=== PATIENT | female | born 1960 | race Caucasian/White ===

== ENCOUNTER 2016-08-15 17:02 | Emergency (ER) | payer MEDICARE, MEDICAID ==
[~2016-08-15] VITALS: Ht 175.3 cm; Wt 200.0 kg
[~2016-08-15 17:02] MED LIST: ACET-703 PO; ADVA250A INH; AMIO200T PO; AMLO5TAB2 PO; ASPI325T PO; ATOR10TA15 PO; BENZ1CAP8 PO; CARV25TA PO; CEFD300C PO; COLA100C3 PO; CROM5.2S4 EACH NARE; ENAL20TA PO; FLUT1SPR5 EACH NARE; FURO1TAB60 PO; HUMALOG SQ; IPRASOL INH; LACT10SO PO; LEVEMIR SQ; LEVO-154 PO; MONT10TA2 PO; MORP1TAB24 PO; MUCI600T PO; MUPI2OIN TOPICAL; NOVORP2 SQ; POTA10TA2 PO; PROT40TA PO; ZOFR4TAB3 SL; ZYRT10CA PO; [UNRECOGNIZED DRUG - CODE] TOPICAL
[2016-08-15 17:03] VITALS: BP 195/85; PULSE 93; RESP 16; TEMP 98.6; O2SAT 94
[2016-08-15 18:10] VITALS: BP 148/76; PULSE 80; RESP 18; O2SAT 98
[2016-08-15] MEDS ORDERED: DEXAMETHASONE SOD PHOS 20 MG/5 ML VIAL IV PUSH ONE (18:30)
--- NOTE | 2016-08-15 18:42 | PD ---
HPI Chief Complaint: Respiratory Symptoms Time Seen by Provider: 18:37 Travel History International Travel<30 days: No Contact w/Intl Traveler<30days: No Traveled to known affect area: No History of Present Illness HPI 55-year-old female that presents to the ED for evaluation of congestion, sinus pressure, sore throat as well as shortness of breath and cough. Per patient she also has some kidney pain. Per patient she has a chronic history of COPD. Per patient she is oxygen dependent and uses 4 L at home. Per patient she's been feeling more short of breath. Per patient she's contacted her doctor about this but per patient they have not given her anything other than treat her as if she had allergies which she thinks that doesn't feel like it. Per patient she does have a history of CHF. She states that she is compliant with her medications and she's been taking multiple allergy medications with minimal relief. She denies any sick contacts. Per patient she wakes up a lot with swelling on the eyes with crusty's. Patient states that she has an allergy to Augmentin, codeine. She has a history of hypertension and diabetes. Denies any other medical problems at this time. Per patient she has no urinary issues but states that she does have a history of kidney problems and they're trying to be conservative with using steroids as well as antibiotics and her secondary to the kidney disease. Per patient she was recently diagnosed with kidney infection but states that this feels different and is not as severe as last time. Per patient the pain in her kidneys is 4 out of 10. Per patient she also having some ear pain as well as sinus pain which is more severe and is 6 out of 10. PFSH Past Medical History Hx Anticoagulant Therapy: Yes Arthritis: Yes Asthma: Yes Atrial Fibrillation: Yes Autoimmune Disease: No Blood Disorders: No Anxiety: No Depression: No Heart Rhythm Problems: Yes Cancer: Yes (rt lung removed for suspected was neg) Cardiac Catheterization: Yes Cardiomyopathy: Yes High Cholesterol: No Chemotherapy: No Chest Pain: Yes Congestive Heart Failure: Yes COPD: Yes Cerebrovascular Accident: No Coronary Artery Disease: Yes Diabetes: Yes Patient Takes Glucophage: No Diminished Hearing: Yes Endocrine: Yes Gastrointestinal Disorders: Yes GERD: Yes Glaucoma: No Genitourinary: Yes (cant urinate unless on lasix) Headaches: No Hepatitis: No Hiatal Hernia: No Heparin Induced Thrombocytopen: No Hypertension: Yes Immune Disorder: No Implanted Vascular Access Dvce: Yes Kidney Stones: No Musculoskeletal: Yes Neurologic: Yes Psychiatric: No Reproductive: No Respiratory: Yes (asthma copd) Immunizations Current: Yes Migraines: Yes Myocardial Infarction: No Radiation Therapy: No Renal Failure: Yes (RENAL HYPERTENSION) Seizures: No Sickle Cell Disease: No Sleep Apnea: Yes (does not wear cpap) Thyroid Disease: Yes (hypo) Ulcer: No Tetanus Vaccination: Unknown Influenza Vaccination: Yes PNEUMOCCOCAL Vaccine (Year): 2007 ?: Not : 5 Para: 2 Miscarriage: 3 : 0 Past Surgical History Abdominal Aneurysm Repair: No Abdominal Surgery: No AICD: Yes Appendectomy: Yes Arteriovenous Shunt: No Body Medical Devices: PACER DEFIB Cardiac Surgery: Yes (aicd pacer) Section: Yes (X 1) Cholecystectomy: No Ear Surgery: No Endocrine Surgery: No Eye Surgery: No Genitourinary Surgery: No Gynecologic Surgery: Yes (csection) Hysterectomy: Yes Insulin Pump: No Joint Replacement: No Neurologic Surgery: No Oral Surgery: Yes (2 teeth pulled 2009) Pacemaker: Yes Thoracic Surgery: Yes (3rd lobe rt lung removed) Other Surgery: Yes Social History Alcohol Use: No Tobacco Use: No Substance Use: No Allergies-Medications (Allergen,Severity, Reaction): Coded Allergies: Augmentin (Verified Allergy, Severe, Diarrhea, 08/15/16) Codeine (Verified Allergy, Severe, ITCH, 08/15/16) Sodium Hypochlorite (Unverified Allergy, Severe, SOB, 08/15/16) *MDRO Multi-Drug Resistant Organism (Verified Adverse Reaction, Unknown, ) 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 Betamethasone Dipropionate Aug Topical 0.05% Lotn 1 Applic TOPICAL BID Atorvastatin (Atorvastatin Calcium) 10 Mg Tab 10 Mg PO HS Protonix (Pantoprazole Sodium) 40 Mg Tab 40 Mg PO DAILY Zofran Odt (Ondansetron Odt) 4 Mg Tab 4 Mg SL Q12HR PRN Zyrtec Allergy (Cetirizine HCl) 10 Mg Cap 10 Mg PO DAILY PRN Mupirocin Topical (Mupirocin) 2 % Oint 1 Applic TOPICAL BID PRN Benzonatate 100 Mg Cap 200 Mg PO TID PRN Lactulose Liq (Lactulose) 10 Gm/15 Ml Soln 15 Ml PO DAILY @ 1400 Colace (Docusate Sodium) 100 Mg Cap 300 Mg PO HS Tylenol Extra Strength (Acetaminophen) 500 Mg Tab 500 Mg PO Q4-6H PRN Morphine ER (Morphine Sulfate) 15 Mg Tab 15 Mg PO BID PRN Potassium Chloride ER (Potassium Chloride) 10 Meq Tab 10 Meq PO DAILY Lasix (Furosemide) 40 Mg Tab 40 Mg PO DAILY Enalapril (Enalapril Maleate) 20 Mg Tab 20 Mg PO BID Carvedilol 25 Mg Tab 25 Mg PO BID Amiodarone (Amiodarone HCl) 200 Mg Tab 200 Mg PO DAILY Amlodipine (Amlodipine Besylate) 5 Mg Tab 5 Mg PO DAILY Levothyroxine (Levothyroxine Sodium) 175 Mcg Tab 175 Mcg PO DAILY Novolin R Inj (Insulin Human Regular) 1,000 Unit/10 Ml Vial 15 Units SQ TIDAC PRN IMPORTANT TO EAT A MEAL WITHIN 30-60 MINUTES OF DOSING Levemir Inj (Insulin Detemir) 1,000 unit/ 10 ML Vial 50 Units SQ BID Do not mix with any other Insulin. Mucinex ER 12 HR (Guaifenesin) 600 Mg Reagan 600 Mg PO BID Singulair (Montelukast Sodium) 10 Mg Tab 10 Mg PO HS Cromolyn Nasal Inh 5.2 Mg/Act Dunellen 1 Dunellen EACH NARE BID 1 spray per nostril Flonase Nasal Dunellen (Fluticasone Nasal Dunellen) 50 Mcg/Act Dunellen 50 Mcg EACH NARE BID Duoneb (Ipratropium-Albuterol Neb) 0.5-2.5 Mg/3 Ml Neb 1 Nebule INH Q4HR NEB Advair Diskus Inh (Fluticasone-Salmeterol Inh) 250-50 Mcg/Blist Aer 1 Puff INH BID Rinse mouth after use. Review of Systems General / Constitutional: Positive: Fever, Chills, No: Weight Gain, Weight Loss, Other Eyes: No: Diploplia, Blurred Vision, Photophobia, Drainage, Redness, Foreign Body Sensation, Pain, Tearing, Blind Spots, Visual changes, Blindness, Other HENT: Positive: Headaches, Sore Throat, Rhinitis, Congestion, Earache, No: Vertigo, Lightheadedness, Rhinorrhea, Nosebleed, Neck Stiffness, Neck Pain, Masses, Gingival Bleeding, Dental Difficulties, Ear Discharge, Other Cardiovascular: Positive: Chest Pain or Discomfort, No: Palpitations, Irregular Rhythm, Tachycardia, Diaphoresis, Syncope, Dyspnea on exertion, Varicosities, Edema, Cyanosis, Varicosities, Phlebitis, Claudication, Other Respiratory: Positive: Cough, Shortness of Breath, No: Wheezing, Sneezing, Orthopnea, Hemoptysis, Stridor, Night Sweats, Pleuritic Pain, Other Gastrointestinal: No: Nausea, Vomiting, Diarrhea, Abdominal Pain, Hematemesis, Hematochezia, Constipation, Changes in Bowel Habits, Indigestion, Dysphagia, Loss of Appetite, Other Genitourinary: Positive: Flank Pain, No: Urgency, Frequency, Dysuria, Nocturia , Hematuria, Decreased Urinary Output, Oliguria, Hesitancy, Dribbling, Incontinence, Pelvic Pain, Dyspareunia, Discharge, Dysmenorrhea, Menorrhagia, Metorrhagia, Vaginal Bleeding, Other Musculoskeletal: No: Myalgias, Arthralgias, Limited ROM, Weakness, Cramping, Edema, Pain, Atrophy, Other Skin: No Rash, No Itching, No Dryness, No Lumps, No Hives, No Change in Pigmentation, No Change in nails, No Alopecia, No Lesions, No Breast Lumps, No Breast Tenderness, No Breast Swelling, No Other Neurologic: No: Weakness, Dizziness, Syncope, Focal Abnormalities, Coordination Problem, Tremor, Ataxia, Headache, Change in Mentation, Slurred Speech, Paresthesia, Incontinence, Seizures, Sensory Disturbance, Other Psychiatric: No: Anxiety, Depression, Suicidal Ideations, Disorder of Thought, Mood Disorder, Substance Abuse, Homicidal Ideation, Other Endocrine: No: Heat Intolerance, Cold Intolerance, Polyuria, Polydipsia, Other Hematologic/Lymphatic: No: Easy Bruising, Lymph Node Enlargement, Other Physical Exam Narrative GENERAL: Well-nourished, well-developed patient in no apparent distress. SKIN: Warm and dry. HEAD: Atraumatic. Normocephalic. EYES: Pupils equal and round reactive to light and accommodation. No scleral icterus. No injection or drainage. ENT: No nasal bleeding or discharge. Mucous membranes pink and moist. TMs are clear with no sign of infection or perforation. No mastoid tenderness. Ear canals are intact bilaterally. No lymphadenopathy. Nostril mucosa is red and moist with clear mucus noted. sinus tenderness noted with palpation noted. Tonsils are not enlarged or swollen. No ulvua Deviation. Tongue is midline. NECK: Trachea midline. No JVD. No meningeal signs noted CARDIOVASCULAR: Regular rate and rhythm. RESPIRATORY: No accessory muscle use. Clear to auscultation. Breath sounds equal bilaterally. GASTROINTESTINAL: Abdomen soft, non-tender, nondistended. Hepatic and splenic margins not palpable. MUSCULOSKELETAL: Extremities without clubbing, cyanosis, or edema. No obvious deformities. NEUROLOGICAL: Awake and alert. No obvious cranial nerve deficits. Motor grossly within normal limits. Five out of 5 muscle strength in the arms and legs. Normal speech. PSYCHIATRIC: Appropriate mood and affect; insight and judgment normal. Data Data Last Documented VS Vital Signs Date Time Temp Pulse Resp B/P Pulse Ox O2 Delivery O2 Flow Rate FiO2 08/15/16 18:10 80 18 148/76 98 Nasal Cannula 4 08/15/16 17:03 98.6 Orders Electrocardiogram (08/15/16 18:25) Complete Blood Count With Diff (08/15/16 18:25) Basic Metabolic Panel (Bmp) (08/15/16 18:25) B-Type Natriuretic Peptide (08/15/16 18:25) Blood Culture (08/15/16 18:25) Urinalysis - C+S If Indicated (08/15/16 18:25) Magnesium (Mg) (08/15/16 18:25) Group A Rapid Strep Screen (08/15/16 18:25) Influenzae A/B Antigen (08/15/16 18:25) Chest, Single Ap (08/15/16 18:25) Iv Access Insert/Monitor (08/15/16 18:25) Ecg Monitoring (08/15/16 18:25) Oximetry (08/15/16 18:25) Dexamethasone Inj (Decadron Inj) (08/15/16 18:30) Labs Laboratory Tests Test 08/15/16 18:40 White Blood Count 11.2 TH/MM3 Red Blood Count 4.47 MIL/MM3 Hemoglobin 12.4 GM/DL Hematocrit 38.9 % Mean Corpuscular Volume 87.0 FL Mean Corpuscular Hemoglobin 27.8 PG Mean Corpuscular Hemoglobin 31.9 % Concent Red Cell Distribution Width 14.6 % Platelet Count 188 TH/MM3 Mean Platelet Volume 9.4 FL Neutrophils (%) (Auto) 73.0 % Lymphocytes (%) (Auto) 13.0 % Monocytes (%) (Auto) 9.6 % Eosinophils (%) (Auto) 3.8 % Basophils (%) (Auto) 0.6 % Neutrophils # (Auto) 8.2 TH/MM3 Lymphocytes # (Auto) 1.5 TH/MM3 Monocytes # (Auto) 1.1 TH/MM3 Eosinophils # (Auto) 0.4 TH/MM3 Basophils # (Auto) 0.1 TH/MM3 CBC Comment DIFF FINAL Differential Comment Sodium Level 138 MEQ/L Potassium Level 3.8 MEQ/L Chloride Level 99 MEQ/L Carbon Dioxide Level 32.6 MEQ/L Anion Gap 6 MEQ/L Blood Urea Nitrogen 13 MG/DL Creatinine 0.87 MG/DL Estimat Glomerular Filtration 68 ML/MIN Rate Random Glucose 257 MG/DL Calcium Level 8.8 MG/DL Magnesium Level 1.8 MG/DL B-Type Natriuretic Peptide 42 PG/ML MDM Medical Decision Making Medical Screen Exam Complete: Yes Emergency Medical Condition: Yes Medical Record Reviewed: Yes Interpretation(s) CBC & BMP Diagram 08/15/16 18:40 strep positive flu negative Last Impressions Chest X-Ray 08/15/16 6825 Signed Impressions: Service Date/Time: Monday, August 15, 2016 18:25 - CONCLUSION: 1. Mild pulmonary vascular congestion bilaterally. 2. Stable cardiomegaly. Eloy Altman MD BNP [facility] Differential Diagnosis Sinusitis versus congestion versus pharyngitis versus influenza versus pneumonia versus CHF versus COPD versus chronic kidney disease versus kidney infection versus flank pain Narrative Course 55-year-old female that presents to the ED for evaluation of cold-like symptoms and flank pain. Patient was properly examined and was found to have signs and symptoms concerning with possible cold-like symptoms. At this time I recommend labs and imaging. Patient is agreeable with this plan. Patient requested something for her sinuses. I told patient that the only really thing we can give her for her sinuses right now is steroids. She will likely have some of this. Patient was given dose of dexamethasone. Labs and imaging were essentially unremarkable. Chest x-ray did show some minimal fluid but no sign of acute CHF. BNP was within normal limits. Strep test was positive. Patient was reassured. At this time I believe this is a strep pharyngitis. Patient tells me that she is not really allergic to augmentin but this gives her diarrhea. She states that she's been able to take penicillin with no issues. This time I will give patient a prescription for amoxicillin and prednisone. Patient was given first dose of amoxicillin here in the ED. Told to follow with PCP. See ED worsening symptoms. Diagnosis Primary Impression: Strep pharyngitis Additional Impression: Sinusitis Qualified Code: J01.00 - Subacute maxillary sinusitis Patient Instructions: General Instructions Additional Instructions: Motrin and Tylenol for pain and fever. You can use [id number] antihistamine as well as well as Mucinex as needed for runny nose and congestion. Cough drops for cough as needed. Drink plenty of fluids. Follow-up with PCP. See ED for worsening symptoms. Med/Other Pt SpecificInfo: Prescription(s) given Scripts Prednisone 20 Mg Tab20 Mg PO BID #10 TAB Prov:Erick Yost MD 08/15/16 Amoxicillin 875 Mg [id number] Mg PO BID 10 Days Prov:Erick Yost MD 08/15/16 Disposition: 01 DISCHARGE HOME Condition: Stable Surendra Miller Aug 15, 2016 18:42
[2016-08-15 19:04] LABS: AUTOMATED NEUTROPHIL # 8.2 TH/MM3 (1.8-7.7); BASOPHIL # 0.1 TH/MM3 (0-0.2); BASOPHIL % 0.6 % (0.0-2.0); EOSINOPHIL # 0.4 TH/MM3 (0-0.4); EOSINOPHIL % 3.8 % (0.0-4.0); HEMATOCRIT 38.9 % (35.0-46.0); HEMO FLAGS DIFF FINAL; LYMPHOCYTE # 1.5 TH/MM3 (1.0-4.8); MEAN CORPUSCULAR HEMOGLOBIN 27.8 PG (27.0-34.0); MEAN CORPUSCULAR HGB CONC 31.9 % (32.0-36.0); MONO % 9.6 % (0.0-8.0); PLATELET COUNT 188 TH/MM3 (150-450); RED BLOOD COUNT 4.47 MIL/MM3 (4.00-5.30); RED CELL DISTRIBUTION WIDTH 14.6 % (11.6-17.2); WHITE BLOOD COUNT 11.2 TH/MM3 (4.0-11.0)
[2016-08-15] MEDS ORDERED: HUMALOG SQ (19:19)
[2016-08-15] MEDS ORDERED: APIX5TAB PO (19:27)
[2016-08-15] MEDS ORDERED: PROT0.1O TOPICAL (19:30)
[2016-08-15] MEDS ORDERED: CORTI10A EACH EAR (19:35)
--- NOTE | 2016-08-15 19:36 | RADRPT ---
EXAM DATE/TIME: 08/15/2016 18:25 [facility] COMPARISON: CHEST SINGLE AP, March 31, 2016, 8:44. INDICATIONS : Shortness of breath, cough, and chest pain. MEDICAL HISTORY : Chronic obstructive pulmonary disease. Asthma SURGICAL HISTORY : Lobectomy. Pacemaker. ENCOUNTER: Initial ACUITY: 1 week PAIN SCORE: 5/10 LOCATION: Bilateral chest FINDINGS: The heart is mildly prominent but stable. Mild pulmonary vascular congestion is noted bilaterally. The left subclavian pacemaker is stable. CONCLUSION: 1. Mild pulmonary vascular congestion bilaterally. 2. Stable cardiomegaly. Eloy Altman MD on August 15, 2016 at 19:24 Board Certified Radiologist. This report was verified electronically.
[2016-08-15 19:40] LABS: BICARBONATE 32.6 MEQ/L (21.0-32.0); MAGNESIUM 1.8 MG/DL (1.5-2.5); POTASSIUM 3.8 MEQ/L (3.5-5.1)
[2016-08-15] MEDS ORDERED: PRED20 PO (20:02)
[2016-08-15] MEDS ORDERED: AMOX875T PO (20:02)
[2016-08-15] MEDS ORDERED: AMOXICILLIN 875 MG TAB PO ONE (20:15)
--- NOTE | 2016-08-15 22:24 | EKG ---
Date Performed: 08/15/2016 Time Performed: 18:24:29 PTAGE: 55 years EKG: ELECTRONIC ATRIAL PACEMAKER ELECTRONIC VENTRICULAR PACEMAKER ABNORMAL RHYTHM ECG PREVIOUS TRACING : 06/29/2015 03.37 Compared to prior tracing no significant change DOCTOR: Blas Baeza Interpretating Date/Time 08/15/2016 22:21:23
== END 2016-08-15 20:56 | disposition home or self-care (01) ==
LOC: NEPE 17:02
DX: J02.0 Streptococcal pharyngitis (principal); J01.00 Acute maxillary sinusitis, unspecified; B95.0 Streptococcus, group A, as the cause of diseases classified elsewhere; I50.9 Heart failure, unspecified; R94.31 Abnormal electrocardiogram [ECG] [EKG]; I10 Essential (primary) hypertension; J45.909 Unspecified asthma, uncomplicated; I48.91 Unspecified atrial fibrillation; Z79.01 Long term (current) use of anticoagulants
CPT/HCPCS: 71010; 80048; 83735; 83880; 85025; 87040; 87804; 87880; 93005; 96374; 99284; J1100

== ENCOUNTER 2016-12-11 20:41 | Observation (INO) | payer MEDICARE, MEDICAID ==
[~2016-12-11 20:41] MED LIST changes: +AMOX875T PO; +APIX5TAB PO; -ASPI325T PO; -CEFD300C PO; +CORTI10A EACH EAR; +PRED20 PO; +PROT0.1O TOPICAL
[2016-12-11 20:44] VITALS: BP 134/81; PULSE 66; RESP 18; TEMP 99.2; O2SAT 95
--- NOTE | 2016-12-11 21:25 | PD ---
HPI Chief Complaint: Respiratory Symptoms Time Seen by Provider: 21:23 Travel History International Travel<30 days: No Contact w/Intl Traveler<30days: No Traveled to known affect area: No History of Present Illness HPI The patient is a 56 year old female who presents to the [facility] emergency department with a history of reportedly not feeling well over the last few days. The patient reports that initially she began to have congestion and sinus drainage, however over the last 3-4 days the congestion has moved into her chest. She reports that she's been coughing up a green sputum. She reports that she has also noted over the last 2 days having increased pain along her abdomen and weeping from the skin of her abdomen related to lymphedema. She reports that she's had cellulitis with sepsis associated with her abdominal lymphedema 2 times in the past. She is concerned that she may be developing a recurrence. She reports that she's had chills without fever. She reports that today she began to have left-sided chest pain that radiates into the left lateral chest. She reports having increased shortness of breath with exertion. She reports that she normally has a baseline level of shortness of breath related to asthma and part of the lung being resected for a benign tumor. She reports that she is on 4 L nasal cannula O2 chronically at home. She reports having nausea without vomiting or diarrhea. She reports that she suffers with chronic constipation. Her last bowel movement was 2 days ago. She denies having any blood in her stool or black or tarry stools. She is chronically incontinent of urine. Otherwise on review of systems, the patient denies any other urinary symptoms or neurologic symptoms. The patient's primary care physician is Dr. Hernandez. The patient's service observer chief is Dr. Cummins. The patient's manager sterile processing is Dr. Mccullough. The patient reports having a history of congestive heart failure with an ejection fraction in 2010 at 12%, however this increase last year up to 45%. She is status post AICD and pacemaker placement. She is chronically anticoagulated with Eliquis. [facility] Past Medical History Narrative Medical The patient's past medical history is significant for congestive heart failure, asthma chronically O2 dependent on 4 L nasal cannula O2, lymphedema, obesity, urinary incontinence, allergies, history of ventricular tachycardia, history of chronic renal insufficiency, history of heart or lung being resected related to a benign tumor, history of diabetes mellitus, psoriasis, hypertension. Hx Anticoagulant Therapy: Yes Arthritis: Yes Asthma: Yes Atrial Fibrillation: Yes Autoimmune Disease: No Blood Disorders: No Anxiety: No Depression: No Heart Rhythm Problems: Yes Cancer: Yes (rt lung removed for suspected was neg) Cardiac Catheterization: Yes Cardiomyopathy: Yes High Cholesterol: No Chemotherapy: No Chest Pain: Yes Congestive Heart Failure: Yes COPD: Yes Cerebrovascular Accident: No Coronary Artery Disease: Yes Diabetes: Yes Diminished Hearing: Yes Endocrine: Yes Gastrointestinal Disorders: Yes GERD: Yes Glaucoma: No Genitourinary: Yes (cant urinate unless on lasix) Headaches: No Hepatitis: No Hiatal Hernia: No Heparin Induced Thrombocytopen: No Hypertension: Yes Immune Disorder: No Implanted Vascular Access Dvce: Yes Kidney Stones: No Musculoskeletal: Yes Neurologic: Yes Psychiatric: No Reproductive: No Respiratory: Yes (asthma copd) Immunizations Current: Yes Migraines: Yes Myocardial Infarction: No Radiation Therapy: No Renal Failure: Yes (RENAL HYPERTENSION) Seizures: No Sickle Cell Disease: No Sleep Apnea: Yes (does not wear cpap) Thyroid Disease: Yes (hypo) Ulcer: No PNEUMOCCOCAL Vaccine (Year): 2007 ?: Not : 5 Para: 2 Miscarriage: 3 : 0 Past Surgical History Narrative Surgical The patient's past surgical history is significant for a , right upper lung being resected for a benign tumor, AICD and pacemaker placement, hysterectomy, tonsillectomy. Abdominal Aneurysm Repair: No Abdominal Surgery: No AICD: Yes Appendectomy: Yes Arteriovenous Shunt: No Body Medical Devices: PACER DEFIB Cardiac Surgery: Yes (aicd pacer) Section: Yes (X 1) Cholecystectomy: No Ear Surgery: No Endocrine Surgery: No Eye Surgery: No Genitourinary Surgery: No Gynecologic Surgery: Yes (csection) Hysterectomy: Yes Insulin Pump: No Joint Replacement: No Neurologic Surgery: No Oral Surgery: Yes (2 teeth pulled 2009) Pacemaker: Yes Thoracic Surgery: Yes (3rd lobe rt lung removed) Other Surgery: Yes Social History Alcohol Use: No Tobacco Use: No Substance Use: No Allergies-Medications (Allergen,Severity, Reaction): Coded Allergies: Augmentin (Verified Allergy, Severe, Diarrhea, 08/15/16) Codeine (Verified Allergy, Severe, ITCH, 08/15/16) Sodium Hypochlorite (Unverified Allergy, Severe, SOB, 08/15/16) *MDRO Multi-Drug Resistant Organism (Verified Adverse Reaction, Unknown, ) 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 06/29/15, cleared per Infection Control* Reported Meds & Prescriptions Reported Meds & Active Scripts Active Reported Jikbooqu-Haicufizh-OW Otic Drops (Neomycin/Polymyxin/Hydrocortisone) 1 % Soln 1 Drop EACH EAR DAILY PRN Protopic Topical 1% (Tacrolimus Topical 1%) 0.1 % Oint 1 Applic TOPICAL BID Eliquis (Apixaban) 5 Mg Tab 5 Mg PO BID Humalog Inj (Insulin Human Lispro) 1,000 Unit/10 Ml Vial Unknown Dose SQ ACHS Max dose at bedtime:( )units; sugars < 70,(0)units; sugars 150-199,(5)units; sugars 200-249,(10)units; sugars 250-299,(15)units; sugars 300-349,(20)units; sugars more than 349,(25)units. Betamethasone Dipropionate Aug Topical 0.05% Lotn 1 Applic TOPICAL BID Atorvastatin (Atorvastatin Calcium) 10 Mg Tab 10 Mg PO HS Protonix (Pantoprazole Sodium) 40 Mg Tab 40 Mg PO DAILY Zofran Odt (Ondansetron Odt) 4 Mg Tab 4 Mg SL Q12HR PRN Mupirocin Topical (Mupirocin) 2 % Oint 1 Applic TOPICAL BID PRN Benzonatate 100 Mg Cap 200 Mg PO TID PRN Lactulose Liq (Lactulose) 10 Gm/15 Ml Soln 15 Ml PO DAILY @ 1400 Morphine ER (Morphine Sulfate) 15 Mg Tab 15 Mg PO BID PRN Potassium Chloride ER (Potassium Chloride) 10 Meq Tab 10 Meq PO DAILY Lasix (Furosemide) 40 Mg Tab 40 Mg PO DAILY Enalapril (Enalapril Maleate) 20 Mg Tab 20 Mg PO BID Carvedilol 25 Mg Tab 25 Mg PO BID Amiodarone (Amiodarone HCl) 200 Mg Tab 200 Mg PO DAILY Amlodipine (Amlodipine Besylate) 5 Mg Tab 5 Mg PO DAILY Levothyroxine (Levothyroxine Sodium) 175 Mcg Tab 175 Mcg PO DAILY Novolin R Inj (Insulin Human Regular) 1,000 Unit/10 Ml Vial 15 Units SQ TIDAC PRN IMPORTANT TO EAT A MEAL WITHIN 30-60 MINUTES OF DOSING Levemir Inj (Insulin Detemir) 1,000 unit/ 10 ML Vial 50 Units SQ BID Do not mix with any other Insulin. Singulair (Montelukast Sodium) 10 Mg Tab 10 Mg PO HS Cromolyn Nasal Inh 5.2 Mg/Act [place] 1 [place] EACH NARE BID 1 spray per nostril Flonase Nasal [place] (Fluticasone Nasal [place]) 50 Mcg/Act [place] 50 Mcg EACH NARE BID Duoneb (Ipratropium-Albuterol Neb) 0.5-2.5 Mg/3 Ml Neb 1 Nebule INH Q4HR NEB Advair Diskus Inh (Fluticasone-Salmeterol Inh) 250-50 Mcg/Blist Aer 1 Puff INH BID Rinse mouth after use. Review of Systems Except as stated in HPI: all other systems reviewed are Neg General / Constitutional: Positive: Chills, No: Fever Eyes: No: Visual changes HENT: Positive: Rhinorrhea, No: Headaches Cardiovascular: Positive: Chest Pain or Discomfort, Dyspnea on exertion Respiratory: Positive: Cough, Shortness of Breath Gastrointestinal: Positive: Nausea, Abdominal Pain, Constipation, No: Vomiting , Diarrhea, Hematemesis, Hematochezia, Changes in Bowel Habits, Indigestion, Loss of Appetite Genitourinary: Positive: Incontinence, No: Dysuria Musculoskeletal: No: Pain Skin: No Rash Neurologic: No: Weakness, Focal Abnormalities, Change in Mentation, Slurred Speech, Sensory Disturbance Psychiatric: No: Depression Endocrine: No: Polydipsia Hematologic/Lymphatic: No: Easy Bruising Physical Exam Narrative General: The patient is a well-developed morbidly obese female, short of breath on my arrival to the room related to dyspnea on exertion from going from her electric wheelchair to the bed. She has a strong odor of urine noted. Head and Neck exam: Head is normocephalic atraumatic. Eyes: EOMI, pupils are equal round and reactive to light. Nose: Midline septum with pink mucous membranes Mouth: Dentition unremarkable. Moist mucus membranes. Posterior oropharynx is not erythematous. No tonsillar hypertrophy. Uvula midline. Airway patent. Neck: No palpable lymphadenopathy. No nuchal rigidity. No thyromegaly. Cardiovascular: Regular rate and rhythm without murmurs, gallops, or rubs. No pulse deficit to the extremities and simultaneous auscultation and palpation of her radial artery. Lungs: Decreased breath sounds in bilateral bases worse on the right compared to the left. No wheezes, rhonchi, or crackles are audible. Abdomen: Soft, she has abdominal wall induration with a yellow drainage noted. She reports that that is not unusual for her to have this drainage from her lymphedema associated with her abdominal wall. There is no erythema of the abdominal wall noted. No point tenderness on palpation of all 4 quadrants of the abdomen No guarding, rebound, or rigidity. No tenderness on palpation of McBurney's point. Negative [place] sign. Extremities: No clubbing or cyanosis. The patient has 1+ edema bilateral lower extremities.. 2+ pulses in all 4 extremities. No calf tenderness on palpation. Back: No spinous process tenderness to palpation. No costovertebral angle tenderness to palpation. Neurologic Exam: Grossly nonfocal. Skin Exam: No rash noted. Intact skin that is warm and dry. Data Data Last Documented VS Vital Signs Date Time Temp Pulse Resp B/P Pulse Ox O2 Delivery O2 Flow Rate FiO2 12/11/16 20:44 99.2 66 18 134/81 95 Nasal Cannula 4 Orders Electrocardiogram (12/11/16 21:53) Complete Blood Count With Diff (12/11/16 21:53) Comprehensive Metabolic Panel (12/11/16 21:53) Creatine Kinase (Cpk) (12/11/16 21:53) Ckmb (Isoenzyme) Profile (12/11/16 21:53) Troponin I (12/11/16 21:53) B-Type Natriuretic Peptide (12/11/16 21:53) Prothrombin Time / Inr (Pt) (12/11/16 21:53) Act Partial Throm Time (Ptt) (12/11/16 21:53) Blood Culture (12/11/16 21:53) C-Reactive Protein (Crp) (12/11/16 21:53) Lipase (12/11/16 21:53) Urinalysis - C+S If Indicated (12/11/16 21:53) Magnesium (Mg) (12/11/16 21:53) Chest, Single Ap (12/11/16 21:53) Iv Access Insert/Monitor (12/11/16 21:53) Ecg Monitoring (12/11/16 21:53) Oximetry (12/11/16 21:53) Lactic Acid Sepsis Protocol (12/11/16 21:53) Ondansetron Inj (Zofran Inj) (12/11/16 22:45) CKMB (12/11/16 22:00) CKMB% (12/11/16 22:00) Aspirin Chew (Aspirin Chew) (12/12/16 00:00) Nitroglycerin 2% Oint (Nitroglycerin 2% (12/12/16 00:00) Levofloxacin 500 Mg Premix Inj (Levaquin (12/12/16 00:00) Admit Order (Ed Use Only) (12/12/16 00:14) Labs Laboratory Tests Test 12/11/16 12/11/16 22:00 23:18 Prothrombin Time 10.7 SEC Prothromb Time International 1.0 RATIO Ratio Activated Partial 29.4 SEC Thromboplast Time Sodium Level 136 MEQ/L Potassium Level 3.6 MEQ/L Chloride Level 95 MEQ/L Carbon Dioxide Level 35.4 MEQ/L Anion Gap 6 MEQ/L Blood Urea Nitrogen 15 MG/DL Creatinine 1.06 MG/DL Estimat Glomerular Filtration 54 ML/MIN Rate Random Glucose 264 MG/DL Lactic Acid Level 1.9 mmol/L Calcium Level 8.3 MG/DL Magnesium Level 1.7 MG/DL Total Bilirubin 0.4 MG/DL Aspartate Amino Transf 30 U/L (AST/SGOT) Alanine Aminotransferase 26 U/L (ALT/SGPT) Alkaline Phosphatase 125 U/L Total Creatine Kinase 352 U/L Creatine Kinase MB 6.0 NG/ML Creatine Kinase MB % 1.7 % Troponin I LESS THAN 0.02 NG/ML C-Reactive Protein 1.90 MG/DL B-Type Natriuretic Peptide 43 PG/ML Total Protein 7.9 GM/DL Albumin 3.6 GM/DL Lipase 141 U/L White Blood Count 7.8 TH/MM3 Red Blood Count 4.25 MIL/MM3 Hemoglobin 12.7 GM/DL Hematocrit 37.6 % Mean Corpuscular Volume 88.5 FL Mean Corpuscular Hemoglobin 29.9 PG Mean Corpuscular Hemoglobin 33.8 % Concent Red Cell Distribution Width 14.6 % Platelet Count 180 TH/MM3 Mean Platelet Volume 9.8 FL Neutrophils (%) (Auto) 66.1 % Lymphocytes (%) (Auto) 21.1 % Monocytes (%) (Auto) 8.2 % Eosinophils (%) (Auto) 3.6 % Basophils (%) (Auto) 1.0 % Neutrophils # (Auto) 5.1 TH/MM3 Lymphocytes # (Auto) 1.6 TH/MM3 Monocytes # (Auto) 0.6 TH/MM3 Eosinophils # (Auto) 0.3 TH/MM3 Basophils # (Auto) 0.1 TH/MM3 CBC Comment DIFF FINAL Differential Comment MDM Medical Decision Making Medical Screen Exam Complete: Yes Emergency Medical Condition: Yes Medical Record Reviewed: Yes Interpretation(s) Last Impressions Chest X-Ray 12/11/16 [id number] Signed Impressions: Service Date/Time: Sunday, December 11, 2016 21:50 - CONCLUSION: Diminished lung volumes and bibasilar patchy densities likely atelectasis. Gopi Sagastume MD Differential Diagnosis Pneumonia, versus early cellulitis, versus urinary tract infection, versus congestive heart failure exacerbation, versus COPD exacerbation, versus acute coronary syndrome. Narrative Course During the course of the patients emergency department visit, the patients history, examination, and differential diagnosis were reviewed with the patient. The patient had IV access obtained and blood work sent for analysis. The patient was placed on a library monitor with oximetry and blood pressure monitoring. An ECG was done on arrival. The patient's ECG reveals an electronic ventricular paced rhythm, heart rate of 61 with a QRS duration of 188 ms, QTC 536 ms. No acute abnormality is noted. The patient was initially provided Zofran 4 mg IV for nausea. The patient was given aspirin 162 mg by mouth 1, nitroglycerin 1 inch the chest wall. The patient was given Levaquin 500 mg IV. The patients laboratory studies were reviewed and remarkable for a white count of 7.8, hemoglobin 12.7, platelets 180 with 8.2 monocytes, CMP is remarkable for chloride of 95, CO2 35.4, creatinine 1.06, glucose 264, calcium 8.3, lactic acid 1.9, alkaline phosphatase 125, CPK 352 with 1.7 and MB percent, troponin I less than 0.02, C-reactive protein 1.90, BNP 43, lipase 141. PT 10.7, PTT 29.4 Radiology studies were reviewed and remarkable for a chest x-ray that showed diminished lung volumes and bibasilar patchy densities likely atelectasis. Given the patient's chest pain, the patient will be admitted for rule out serial cardiac enzyme protocol. The patients results were discussed with the patient, including the plan of care. I explained that further testing and/ or monitoring is indicated based on the patients history, examination, and/ or laboratory findings. Therefore, I recommended admission for additional evaluation. The patient expressed understanding and was agreeable with this plan. The patient was admitted to the hospital in stable condition and sent to a bed under the care of the [facility]. Physician Communication Physician Communication The patient's case was discussed with Chuckie Dietrich who did agree to admit the patient to the [facility]. Diagnosis Primary Impression: Chest pain, rule out acute myocardial infarction Additional Impression: Abdominal pain Qualified Code: R10.9 - Abdominal pain, unspecified location Admitting Information Admitting Physician Requests: Shannon Luther MD Dec 11, 2016 21:25
--- NOTE | 2016-12-11 22:15 | RADRPT ---
EXAM DATE/TIME: 12/11/2016 21:50 [facility] COMPARISON: CHEST SINGLE AP, August 15, 2016, 18:25. INDICATIONS : Chest pain. Short of breath. MEDICAL HISTORY : Chronic obstructive pulmonary disease. Asthma. SURGICAL HISTORY : Lobectomy. Pacemaker. ENCOUNTER: Subsequent ACUITY: 2 days PAIN SCORE: 4/10 LOCATION: Bilateral chest FINDINGS: A single view of the chest demonstrates diminished lung volumes and patchy bibasilar densities. Left- sided pacemaker partially seen with intact leads.. Osseous structures are intact. CONCLUSION: Diminished lung volumes and bibasilar patchy densities likely atelectasis. Gopi Sagastume MD on December 11, 2016 at 22:13 Board Certified Radiologist. This report was verified electronically.
[2016-12-11] MEDS ORDERED: ONDANSETRON HCL 4 MG/2 ML VIAL IV ONE (22:45)
[2016-12-11 23:04] LABS: ANION GAP 6 MEQ/L (5-15); AST (GOT) 30 U/L (15-37); BICARBONATE 35.4 MEQ/L (21.0-32.0); BLOOD UREA NITROGEN 15 MG/DL (7-18); CHLORIDE 95 MEQ/L (98-107); GLOMERULAR FILTRATION RATE 54 ML/MIN (>89); MAGNESIUM 1.7 MG/DL (1.5-2.5); POTASSIUM 3.6 MEQ/L (3.5-5.1); SODIUM (NA) 136 MEQ/L (136-145)
[2016-12-11 23:05] LABS: ALT (GPT) 26 U/L (10-53)
[2016-12-11 23:08] LABS: ALKALINE PHOSPHATASE 125 U/L (45-117); CREATINE KINASE 352 U/L (26-192); TOTAL BILIRUBIN ADULT 0.4 MG/DL (0.2-1.0)
[2016-12-11 23:14] LABS: APTT (PATIENT) 29.4 SEC (24.3-30.1); PROTHROMBIN TIME - PATIENT 10.7 SEC (9.8-11.6)
[2016-12-11 23:37] LABS: AUTOMATED NEUTROPHIL # 5.1 TH/MM3 (1.8-7.7); BASOPHIL # 0.1 TH/MM3 (0-0.2); EOSINOPHIL # 0.3 TH/MM3 (0-0.4); EOSINOPHIL % 3.6 % (0.0-4.0); HEMATOCRIT 37.6 % (35.0-46.0); HEMO FLAGS DIFF FINAL; LYMPH % 21.1 % (9.0-44.0); LYMPHOCYTE # 1.6 TH/MM3 (1.0-4.8); MEAN CELL VOLUME 88.5 FL (80.0-100.0); MEAN CORPUSCULAR HEMOGLOBIN 29.9 PG (27.0-34.0); MEAN CORPUSCULAR HGB CONC 33.8 % (32.0-36.0); MONO % 8.2 % (0.0-8.0); NEUT % 66.1 % (16.0-70.0); PLATELET COUNT 180 TH/MM3 (150-450); RED BLOOD COUNT 4.25 MIL/MM3 (4.00-5.30); RED CELL DISTRIBUTION WIDTH 14.6 % (11.6-17.2); WHITE BLOOD COUNT 7.8 TH/MM3 (4.0-11.0)
[2016-12-12] VITALS (10 sets, daily range): BP systolic 130–174; BP diastolic 61–85; PULSE 60–69; RESP 16–20; TEMP 98–98.9; O2SAT 95–98
[2016-12-12] MEDS ORDERED: NITROGLYCERIN 2% OINT 1 GM PACKET TOPICAL ONE
[2016-12-12] MEDS ORDERED: ASPIRIN 81 MG CHEW TAB CHEW ONE
[2016-12-12] MEDS ORDERED: LEVOFLOXACIN 500 MG PREMIX INJ 100 ML IV ONE
[2016-12-12] MEDS ORDERED: SODIUM CHLORIDE 0.9% FLUSH 10 ML FLUSH IV FLUSH PRN (00:45)
[2016-12-12] MEDS ORDERED: NALOXONE HCL 0.4 MG/ML AMP IV PRN (00:45)
[2016-12-12] MEDS ORDERED: DEXTROSE 50% IN WATER 50 ML VIAL(D50) IV PRN ×2 (00:45→12:30)
[2016-12-12] MEDS ORDERED: GLUCAGON 1 MG/ML VIAL OTHER PRN ×2 (00:45→12:30)
[2016-12-12] MEDS ORDERED: SENNOSIDES 8.6 MG TAB PO PRN (00:45)
[2016-12-12] MEDS ORDERED: ACETAMINOPHEN 325 MG TAB PO PRN ×2 (00:45)
[2016-12-12] MEDS ORDERED: LACTULOSE SYRUP 20 GM/30 ML CUP PO PRN (00:45)
[2016-12-12 02:03] LABS: CKMB 5.2 NG/ML (0.5-3.6)
[2016-12-12] MEDS: HEPARIN SODIUM - SQ 10,000 UNITS/ML VIAL SQ SCH ×2 (02:31→13:47)
[2016-12-12] MEDS: NITROGLYCERIN 2% OINT 1 GM PACKET TOPICAL SCH ×3 (06:36→18:00)
[2016-12-12] MEDS: INSULIN ASPART SUPPLEMENTAL SCALE SQ SCH ×3 (07:36→18:27)
[2016-12-12 08:09] LABS: CREATINE KINASE 280 U/L (26-192)
[2016-12-12] MEDS: ASPIRIN EC 81 MG TABEC PO SCH (09:49)
[2016-12-12] MEDS: SODIUM CHLORIDE 0.9% FLUSH 10 ML FLUSH IV FLUSH SCH ×2 (09:49→21:00)
[2016-12-12] MEDS ORDERED: BENZONATATE 100 MG CAP PO PRN (12:30)
[2016-12-12] MEDS ORDERED: MORPHINE SULFATE 15 MG CONTROLLED RELEASE TAB PO PRN (12:30)
--- NOTE | 2016-12-12 13:43 | MH ---
cc: ONEIL PILLAI MD, JESSY M.D. DATE OF ADMISSION: 12/12/2016 PRESENTING COMPLAINT Left chest pain. HISTORY OF PRESENT ILLNESS The patient is a 56-year-old obese female with a past medical history significant for multiple medical problems including morbid obesity, cardiomyopathy status post AICD placement, congestive heart failure psoriasis, chronic lymphedema, diabetes, hypertension, COPD, CKD and cellulitis. The patient presented to the emergency room with complaints of generally not feeling well over the last few days. She reports initially she had congestion and sinus drainage, however, feels like it moved to her chest. She has been coughing up green sputum. No fevers or chills have been noticed. The patient over the last 2 days she noticed increased weeping from the skin of her abdomen related to lymphedema. The patient feels it could be cellulitis, however, she denies any fevers or chills. The patient also complains of left-sided chest pain that radiates into the left lateral chest with increasing shortness of breath with exertion. The patient is chronically on 4 liters of oxygen via nasal cannula at home. She reports having nausea without vomiting or diarrhea. She has a history of chronic constipation for which she is on lactulose. Her last bowel movement was two days ago. The patient denies any bleeding in the urine. She is chronically incontinent of urine. She came into the ER for evaluation and was admitted for further work-up. PAST MEDICAL HISTORY As mentioned above is significant for multiple medical issues includin. Congestive heart failure. 2. Asthma. 3. Chronically on four liters of oxygen by nasal cannula. 4. Chronic lymphedema. 5. Morbid obesity. 6. Urinary incontinence. 7. History of CKD. 8. History of part of lung been resected secondary to a benign tumor. 9. Diabetes mellitus. 10. Psoriasis. PAST SURGICAL HISTORY 1. . 2. Right upper lung resected for benign tumor. 3. AICD and pacemaker placement. 4. Hysterectomy. 5. Tonsillectomy. ALLERGIES 1. AUGMENTIN. 2. CODEINE. 3. SODIUM HYPOCHLORITE. MEDICATIONS Medications at home include: 1. Zofran 4 mg tablet p.o. q.12h. p.r.n. 2. Lactulose 15 mL p.o. daily. 3. Enalapril 20 mg p.o. b.i.d. 4. Betamethasone topical ointment. 5. Amiodarone 200 mg p.o. daily. 6. Neomycin ointment. 7. Mupirocin ointment. 8. Eliquis 5 mg p.o. b.i.d. 9. DuoNeb q.4h. p.r.n. shortness of breath. 10. Benzonatate [place] 200 mg p.o. t.i.d. p.r.n. 11. Coreg 25 mg p.o. b.i.d. p.r.n. 12. Fluticasone nasal spray ____ mcg b.i.d. 13. Advair Diskus 250/50, one puff inhalation b.i.d. 14. Amlodipine 5 mg daily. 15. Atorvastatin 10 mg p.o. q.h.s. 16. Levemir 50 units subcu b.i.d. 17. Regular insulin 15 units t.i.d. p.r.n. 18. Humalog sliding scale. 19. Singulair 10 mg p.o. q.h.s. 20. Lasix 40 mg p.o. daily. 21. Cromolyn nasal inhalation, one spray each nostril b.i.d. 22. Morphine ER 15 mg p.o. b.i.d. p.r.n. pain. 23. Protonix 40 mg p.o. daily. 24. Potassium chloride 10 mEq daily. 25. Topical tacrolimus ointment. 26. Levothyroxine 175 mcg p.o. daily. SOCIAL HISTORY The patient and lives at home with her . Denies alcohol, tobacco or illicit drug abuse. FAMILY HISTORY Family history is reviewed and is noncontributory. REVIEW OF SYSTEMS The review of systems is significant for fatigue, shortness of breath, unable to lie flat, increased wheezing, cough and congestion productive of green sputum. Otherwise negative in all systems that were reviewed. PHYSICAL EXAMINATION VITAL SIGNS: At this point show temperature 99.2, pulse 60, respiratory rate 20, blood pressure 149/81. She is satting 98% on 4 liters. GENERAL: She is an awake, alert, oriented, morbidly obese female sitting in bed, does not appear to be in any acute distress. HEENT: Pupils are equally round and reactive to light and accommodation. Extraocular movements intact. No scleral icterus or conjunctival injection was noted. Oral mucosa is moist. NECK: Supple, nontender. JVD cannot be assessed because of severe obesity. CARDIOVASCULAR: S1, S2, regular. No gallops, murmurs or rubs. PULMONARY: Examination diminished throughout. Decreased air entry. Difficult to auscultate due to body habitus. ABDOMEN: Soft, protuberant, nontender with yellowish scaly excoriation. EXTREMITIES: Bilateral lower extremities have 2+ pitting edema, however, no tenderness is noted. The patient also has excoriated areas on the bilateral lower extremities. SKIN: As mentioned above the pannus is edematous, thick and leathery, warm to touch and erythematous. NEUROLOGIC: Awake, alert and oriented. No focal deficits were seen. Cranial nerves appear grossly intact. PSYCH: Appropriate and cooperative. LABORATORY DATA Pertinent lab investigations show WBC count 7.8, hemoglobin 12.7, hematocrit 37.6, platelets 180. Chemistry shows sodium 136, potassium 3.6, chloride 95, bicarb 35, BUN 15, creatinine 1.06, glucose 264, calcium 8.3, is negative. AST 30, ALT 36, alkaline phosphatase 125. CK 352 on admission. Troponin less than 0.02 x3. C-reactive protein 1.9. BNP 43. Total protein 7.9, albumin 3.6, lipase 141. INR is 1.0. IMAGING STUDIES Imaging studies include a chest x-ray which was done and showed diminished lung volumes and bilateral density like atelectasis. DIAGNOSTIC IMPRESSION 1. Chest pain, rule out acute coronary syndrome. 2. Shortness of breath, possibly acute bronchitis. 3. History of cardiomyopathy. 4. Chronic lymphedema. 5. History of congestive heart failure. 6. Psoriasis. 7. Hypertension. 8. Diabetes. 9. Morbid obesity. 10. Chronic kidney disease. PLAN 1. The patient will be admitted to observation. 2. Troponins are negative x3. 3. EKG negative for any cardiac ischemia. 4. We will consult the patient's frame builder, Dr. Cummins. 5. Continue home medications including beta blockers and Eliquis. 6. BNP is only 43 which rules out for any acute congestive heart failure, however, given her significant lymphedema will give her 40 mg IV of Lasix. 7. I will resume all home medications. 8. Will consult Dr. Hartmann for any pulmonary work-up if needed. 9. The patient insists there is something wrong. Elaborate discussion with patient going over lab results. Labs in the a.m. Will continue to follow. MD TYSON Puente/JIMMY /12:50 PM /1:03 PM
[2016-12-12] MEDS ORDERED: FUROSEMIDE 40 MG/4 ML VIAL IV PUSH ONE (14:00)
--- NOTE | 2016-12-12 14:06 | EKG ---
Date Performed: 12/12/2016 Time Performed: 06:52:45 PTAGE: 56 years EKG: Underlying atrial fibrillation with 100% ventricular pacing Compared to prior tracing no si gnificant change ABNORMAL RHYTHM ECG PREVIOUS TRACING : 08/15/2016 18.24 DOCTOR: Walt Malik Interpretating Date/Time 12/12/2016 14:04:26
--- NOTE | 2016-12-12 14:06 | EKG ---
Date Performed: 12/11/2016 Time Performed: 21:39:34 PTAGE: 56 years EKG: Underlying rhythm appears to be atrial fibrillation with 100% ventricular pacing Compared t o PREVIOUS TRACING atrial fibrillation is new PREVIOUS TRACIN08/15/16 DOCTOR: Walt Malik Interpretating Date/Time 12/12/2016 14:03:57
[2016-12-12] MEDS ORDERED: RESP: ALBUTEROL 2.5 MG/IPRATROPIUM 0.5 MG NEB (SCH) INH (16:00)
[2016-12-12] MEDS: RESP: ALBUTEROL 2.5 MG/IPRATROPIUM 0.5 MG NEB (SCH) NEB ×2 (16:09→21:33)
--- NOTE | 2016-12-12 18:53 | MB ---
cc: REMINGTON LOVE MD DATE OF CONSULTATION: 12/12/16 REASON FOR CONSULTATION Chest pain. HISTORY OF PRESENT ILLNESS Ms. Britt Mace is a 56-year-old female who is well-known to me. She does have a history a nonischemic cardiomyopathy with subsequent ICD placement that has essentially resolved by echocardiogram in May of 2015. The patient does continue to struggle with morbid obesity and lymphedema. The patient does report that she has had weeping from her abdomen. This has been worse recently but is essentially chronic. PAST MEDICAL HISTORY 1. Nonischemic cardiomyopathy with most recent EF of 55% 2. Asthma on 4 liters nasal cannula, 3. Chronic lymphedema. 4. Atrial fibrillation: She has a CHADS score of three and has been on aspirin and Plavix for multiple falls, 5. Hypertension, 6. Hyperlipidemia, 7. Hypothyroidism, 8. Diabetes 9. Right lung mass status post excision 10. Sleep apnea, 11. Psoriasis 12. TIA. MEDICATIONS Per the record. ALLERGIES AUGMENTIN CODEINE SODIUM HYPOCHLORITE FAMILY HISTORY Noncontributory. SOCIAL HISTORY The patient does not smoke. PHYSICAL EXAMINATION VITAL SIGNS: 60, 20, 149/81. GENERAL: She is a morbidly obese female who is in no apparent distress. NECK: Free from JVD. LUNGS: Bilaterally decreased and clear to auscultation. CARDIOVASCULAR: She has a normal S1 and S2. The rhythm is regular. ABDOMEN: Soft. EXTREMITIES: Does have some weeping edema. EXTREMITIES: 1+ edema. LABORATORY DATA Lab values significant for a creatinine of 1.06. Her BNP is 43. IMAGING STUDIES Chest x-ray shows diminished from joint December 11 shows diminished lung volumes and bibasilar patchy densities, likely atelectasis. IMPRESSION 1. Chest pain - the patient essentially denied any chest pain to me. She has a history of a nonischemic cardiomyopathy. Her EKG and enzymes are negative for any acute changes. No further workup is felt indicated in this regard at this time. 2. History of congestive heart failure - the patient does have a history of a nonischemic cardiomyopathy. Her most recent EF was normal. This does not appear to be congestive heart failure, although she may have some lymphedema. Thus, at this point, I do not feel we need to do an echocardiogram. I would simply continue her home diuretics. Caution should be used with IV diuretics as she has had several admissions where we had over diuresed secondary to her lymphedema resulting in significant renal insufficiency. 3. Atrial fibrillation - again I would simply continue her home medications that included the Eliquis 5 mg b.i.d. Bryce Turner/ /4:56 PM /6:41 PM
--- NOTE | 2016-12-12 18:53 | MB ---
cc: SHAHBAZ HARTMANN M.D. DATE OF CONSULTATION: 12/12/2016 REASON FOR CONSULTATION: COPD. HISTORY OF PRESENT ILLNESS The patient is a 56-year-old female who is morbidly obese presents to the emergency room with increasing congestion, pain mainly in the back, which she had intermittently on a long-term basis. The patient denies history of fever or chills. No cough, no expectoration. No hemoptysis. She does have a history of sinusitis last week which seems improved. She has no chest pain, no orthopnea, no PND. PAST MEDICAL HISTORY: 1. Bronchial asthma/COPD. 2. Congestive heart failure. 3. Sleep disorder breathing, declined treatment. 4. Chronic respiratory failure, 4 liters oxygen nasal cannula, 24 hours a day. 5. Chronic lymphedema. 6. Urinary incontinence. 7. Chronic kidney disease. 8. Resection of right benign lung mass in the past. 9. Diabetes mellitus. 10. Psoriasis. PAST SURGICAL HISTORY: 1. AICD. 2. . 3. Resection of benign lung mass, right lung. 4. Previous tonsillectomy and adenoidectomy as a child. ALLERGIES CODEINE. SODIUM HYPOCHLORITE AUGMENTIN MDRO FAMILY HISTORY Noncontributory. SOCIAL HISTORY Does not smoke, does not drink. No TB, no industrial exposure. MEDICATIONS: At home: Kindly review admission list of medications upon presentation. REVIEW OF SYSTEMS 12-point review of systems as per HPI and past history otherwise negative. PHYSICAL EXAMINATION: On exam the patient is alert, sitting in bed in no distress. VITAL SIGNS: Pulse 60, respirations 18, blood pressure 150/80, oxygen saturation 98% on four liters oxygen. HEENT: Unremarkable. Eyes without icterus. NECK: Without adenopathy or thyroid enlargement. CHEST: No dullness to percussion, clear to auscultation. CARDIAC: PMI not appreciated. S1-S2 audible, no murmur, no rub. ABDOMEN: Lax, bowel sounds audible. EXTREMITIES: 3+ edema. LABORATORY DATA: White count 7.8, hemoglobin 12.7, hematocrit 37. Sodium 136, potassium 3.6, BUN 15, creatinine 1.0. Chest x-ray: Atelectatic change at base. IMPRESSION: 1. Chronic respiratory failure on oxygen therapy. 2. COPD and/or bronchial asthma on bronchodilator therapy. 3. Diabetes mellitus. 4. Sleep disorder breathing, declines evaluation. 5. Morbid obesity. PLAN: The patient is in no distress at present. Oxygenation is quite adequate. Chest x-ray without acute abnormality. Would continue her oxygen therapy as well as bronchodilator. Increase her activity gradually. Cardiac evaluation to be concluded during her emergency room visit. She has a follow up appointment with me in the office. I do thank you for asking me to partake in Ms. Mace's care. Shahbaz Hartmann MD WWW/ALICJA /5:01 PM /6:46 PM
[2016-12-12] MEDS ORDERED: BUDESONIDE-FORMOTEROL 160/4.5 MCG INHALER INH SCH (21:00)
[2016-12-12] MEDS ORDERED: CROMOLYN SODIUM 5.2 MG/ACT 13 ML NASAL SPRAY EACH NARE SCH (21:00)
[2016-12-12] MEDS ORDERED: LEVOFLOXACIN 500 MG TAB PO SCH (21:00)
[2016-12-12] MEDS ORDERED: ATORVASTATIN 10 MG TAB PO SCH (21:00)
[2016-12-12] MEDS: APIXABAN 5 MG TABLET PO SCH (21:00)
[2016-12-12] MEDS ORDERED: MONTELUKAST SODIUM 10 MG TAB PO SCH (21:00)
[2016-12-12] MEDS ORDERED: diphenhydrAMINE HCL 25 MG CAP PO PRN (23:30)
[2016-12-12] MEDS: RESP: ALBUTEROL 2.5 MG/IPRATROPIUM 0.5 MG NEB (PRN) NEB (23:44)
[2016-12-13] MEDS: CARVEDILOL 12.5 MG TAB PO SCH ×2 (00:15→09:30)
[2016-12-13] MEDS: ENALAPRIL MALEATE 10 MG TAB PO SCH ×2 (00:16→09:45)
[2016-12-13] MEDS: NITROGLYCERIN 2% OINT 1 GM PACKET TOPICAL SCH ×3 (00:16→12:00)
[2016-12-13] MEDS: INSULIN ASPART SUPPLEMENTAL SCALE SQ SCH ×2 (01:32→07:59)
[2016-12-13] MEDS: INSULIN DETEMIR 100 UNITS/ML VIAL SQ SCH ×2 (01:33→09:48)
[2016-12-13] MEDS: RESP: ALBUTEROL 2.5 MG/IPRATROPIUM 0.5 MG NEB (PRN) NEB (02:53)
[2016-12-13 04:05] VITALS: BP 135/66; PULSE 73; RESP 18; TEMP 98.1; O2SAT 93
[2016-12-13] MEDS ORDERED: LEVOTHYROXINE SODIUM 75 MCG TAB PO SCH (06:00)
[2016-12-13] MEDS ORDERED: LEVOTHYROXINE SODIUM 100 MCG TAB PO SCH (06:00)
[2016-12-13] MEDS: RESP: ALBUTEROL 2.5 MG/IPRATROPIUM 0.5 MG NEB (SCH) NEB ×3 (07:42→16:21)
[2016-12-13 07:45] VITALS: O2SAT 93
[2016-12-13 08:00] VITALS: BP 133/63; PULSE 78; RESP 18; TEMP 96; O2SAT 94
[2016-12-13] MEDS ORDERED: amLODIPine BESYLATE 5 MG TAB PO SCH (09:00)
[2016-12-13] MEDS ORDERED: LACTULOSE SYRUP 20 GM/30 ML CUP PO SCH (09:00)
[2016-12-13] MEDS ORDERED: AMIODARONE 200 MG TAB PO SCH (09:00)
[2016-12-13] MEDS ORDERED: FUROSEMIDE 40 MG TAB PO SCH (09:00)
[2016-12-13] MEDS ORDERED: POTASSIUM CHLORIDE 10 MEQ CONTROLLED RELEASE TAB PO SCH ×2 (09:00)
[2016-12-13] MEDS ORDERED: PANTOPRAZOLE SOD 40 MG DELAYED RELEASE TAB PO SCH (09:00)
[2016-12-13] MEDS: APIXABAN 5 MG TABLET PO SCH (09:30)
[2016-12-13] MEDS: ASPIRIN EC 81 MG TABEC PO SCH (09:36)
[2016-12-13] MEDS: SODIUM CHLORIDE 0.9% FLUSH 10 ML FLUSH IV FLUSH SCH (09:37)
--- NOTE | 2016-12-13 09:43 | HHI.PR ---
Subjective Remarks Awake sitting on side of bed No active shortness of breath noted O2 per nasal cannula at 4 L which is what she wears at home States she has not urinated since late yesterday afternoon (Lolly Reyes) Objective Objective Results - Vital Signs Date Time Temp Pulse Resp B/P Pulse Ox O2 Delivery O2 Flow Rate FiO2 12/13/16 08:00 96.0 78 18 133/63 94 12/13/16 07:45 93 Nasal Cannula 4.00 12/13/16 04:05 98.1 73 18 135/66 93 12/12/16 23:45 98.9 60 18 141/71 95 12/12/16 21:36 96 Nasal Cannula 4.00 12/12/16 19:30 98.1 66 18 130/61 97 12/12/16 16:54 98.0 61 174/85 96 12/12/16 12:11 60 20 149/81 98 Nasal Cannula 4 12/12/16 09:49 63 16 134/63 96 Nasal Cannula 3 I/O 12/12/16 12/12/16 12/12/16 12/13/16 12/13/16 12/13/16 06:59 14:59 22:59 06:59 14:59 22:59 Intake Total 200 ml 200 ml Balance 200 ml 200 ml Intake Oral 200 ml 200 ml (Lolly Reyes) Result Diagram: 12/11/16 2318 12/11/16 2200 ROS General: Other (10 point ROS done positives noted) Pulmonary: Cough (occasional), 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 Facial features appear symmetric. OROPHARYNGEAL: Oropharynx without erythema or edema., Dry NECK: Supple. Trachea midline without deviation. CARDIAC: Regular rhythm, regular rate, S1 and S2 are heard. Distant heart sounds LUNGS: Diminished to auscultation bilaterally. Encouraged to turn cough and deep breathe ABDOMEN: Round obese, nontender, Bowel sounds active No rebound. No guarding. EXTREMITIES: 2-3+ generalized edema. Mild rash lower extremities NEUROLOGICAL: Patient mood and affect appropriate mild anxiety SKIN:Warm and moist (Lolly Reyes) A/P Assessment and Plan 1. Chest pain, rule out acute coronary syndrome. 2. Shortness of breath, possibly acute bronchitis. 3. History of cardiomyopathy. 4. Chronic lymphedema. 5. History of congestive heart failure. 6. Psoriasis. 7. Hypertension. 8. Diabetes. 9. Morbid obesity. 10. Chronic kidney disease. 11. Possible UTI Vital signs reviewed, temp 98.9, BP and other vitals normal trends Labs reviewed Chest pain, no further complaints Appreciate cardiology input and recommendations, will also follow as outpatient when patient is discharged Just of heart failure stable medical management, negative troponins Positive CKs, trending down, denies any muscular pain but notes neuropathy in her abdomen and her lower legs Denies any abdominal pain this a.m., recommendations for patient to take L was 5 mg by mouth twice a day but she is refusing dose Psoriasis, seems improved this morning, medical management Morbid obesity, coverage patient to participate in his much activity as she can , out of bed every day, passive AROM if unable to do active, COPD, pulmonary consult and appreciate input, maintaining O2 at 4 L nasal cannula as this is her home dose, and 10 use bronchodilators After discharge patient will be followed as outpatient Diabetes type 2, checks and sliding scale, ADA diet Discussed with patient Discussed with Dr. vela, seen on her behalf Discussed with nurse Discharge planning within the next day or 2, UA and culture pending (Lolly Reyes) Assessment and Plan patient seen and examined reports she did not sleep well last night cleared by Pulmonary and Cardiology for dicharge patient demanding I/v lasix, Nephrology consult explained to patient that i/v lasix can cause significant kidney injury (this has happened to her in past) and cautioned by Dr Cummins patient agitated and screaming and demanding another physician. At this point patient is medically stable to be discharged to home on PO diuretics and home meds. discussed with charge nurse (Kati Vela MD) Lolly Reyes Dec 13, 2016 09:43 Kati Vela MD Dec 13, 2016 10:55
[2016-12-13 12:00] VITALS: BP 134/69; PULSE 63; RESP 18; TEMP 96.1; O2SAT 96
[2016-12-13 12:55] VITALS: O2SAT 96
[2016-12-13 15:16] VITALS: BP 123/73; PULSE 63; RESP 18; TEMP 96.5; O2SAT 97
--- NOTE | 2016-12-13 16:20 | HHI.PR ---
Subjective Remarks alert no SOB vss Objective Vital Signs Date Time Temp Pulse Resp B/P Pulse Ox O2 Delivery O2 Flow Rate FiO2 12/13/16 15:16 96.5 63 18 123/73 97 12/13/16 12:55 96 Nasal Cannula 4.00 12/13/16 12:00 96.1 63 18 134/69 96 12/13/16 08:00 96.0 78 18 133/63 94 12/13/16 07:45 93 Nasal Cannula 4.00 12/13/16 04:05 98.1 73 18 135/66 93 12/12/16 23:45 98.9 60 18 141/71 95 12/12/16 21:36 96 Nasal Cannula 4.00 12/12/16 19:30 98.1 66 18 130/61 97 12/12/16 16:54 98.0 61 174/85 96 I/O 12/12/16 12/12/16 12/12/16 12/13/16 12/13/16 12/13/16 07:00 15:00 23:00 07:00 15:00 23:00 Intake Total 200 ml 200 ml Balance 200 ml 200 ml Intake Oral 200 ml 200 ml Result Diagram: 12/11/16231712/11/162199 Objective Remarks GENERAL: SKIN: Warm and dry. HEAD: Atraumatic. Normocephalic. EYES: Pupils equal and round. No scleral icterus. No injection or drainage. ENT: No nasal bleeding or discharge. Mucous membranes pink and moist. NECK: Trachea midline. No JVD. CARDIOVASCULAR: Regular rate and rhythm. RESPIRATORY: No accessory muscle use. Clear to auscultation. Breath sounds equal bilaterally. GASTROINTESTINAL: Abdomen soft, non-tender, nondistended. Hepatic and splenic margins not palpable. MUSCULOSKELETAL: Extremities without clubbing, cyanosis, or edema. No obvious deformities. NEUROLOGICAL: Awake and alert. No obvious cranial nerve deficits. Motor grossly within normal limits. Five out of 5 muscle strength in the arms and legs. Normal speech. PSYCHIATRIC: Appropriate mood and affect; insight and judgment normal. Medications and IVs Laboratory Tests Test 12/11/16 12/11/16 12/12/16 12/12/16 22:00 23:18 01:00 07:00 Chloride Level 95 MEQ/L (98-107) Carbon Dioxide Level 35.4 MEQ/L (21.0-32.0) Creatinine 1.06 MG/DL (0.50-1.00) Estimat Glomerular Filtration 54 ML/MIN (>89) Rate Random Glucose 264 MG/DL (74-106) Calcium Level 8.3 MG/DL (8.5-10.1) Alkaline Phosphatase 125 U/L (45-117) Total Creatine Kinase 352 U/L 290 U/L 280 U/L (26-192) (26-192) (26-192) Creatine Kinase MB 6.0 NG/ML 5.2 NG/ML 5.0 NG/ML (0.5-3.6) (0.5-3.6) (0.5-3.6) Troponin I LESS THAN 0.02 LESS THAN 0.02 NG/ML NG/ML (0.02-0.05) (0.02-0.05) C-Reactive Protein 1.90 MG/DL (0.00-0.30) Monocytes (%) (Auto) 8.2 % (0.0-8.0) Assessment and Plan Assessment and Plan ass respiraty failure , chronic COPD/ASTHMA MORBID OBESITY O2 NEEDED BRONCHODILATOR THERAPY Shahbaz RUSSELL Wahba Wadie MD Dec 13, 2016 16:20
== END 2016-12-13 17:14 | disposition home or self-care (01) ==
LOC: NEPC 20:41 → NEDA 12-12 00:16 → NEDH 12-12 04:16 → NEPGCP 12-12 15:40
PROVIDERS: ADMIT Internal Medicine; ATTEND Internal Medicine
DX: R07.89 Other chest pain (principal); I89.0 Lymphedema, not elsewhere classified; R10.9 Unspecified abdominal pain; I13.0 Hypertensive heart and chronic kidney disease with heart failure and stage 1 through stage 4 chronic kidney disease, or unspecified chronic kidney disease; I50.9 Heart failure, unspecified; N18.9 Chronic kidney disease, unspecified; E11.22 Type 2 diabetes mellitus with diabetic chronic kidney disease; Z79.4 Long term (current) use of insulin; E66.01 Morbid (severe) obesity due to excess calories; L40.9 Psoriasis, unspecified; J44.9 Chronic obstructive pulmonary disease, unspecified; I42.9 Cardiomyopathy, unspecified; J96.10 Chronic respiratory failure, unspecified whether with hypoxia or hypercapnia; R32 Unspecified urinary incontinence; G47.30 Sleep apnea, unspecified; E03.9 Hypothyroidism, unspecified; E78.5 Hyperlipidemia, unspecified; K21.9 Gastro-esophageal reflux disease without esophagitis; I48.91 Unspecified atrial fibrillation; I25.10 Atherosclerotic heart disease of native coronary artery without angina pectoris; Z86.73 Personal history of transient ischemic attack (TIA), and cerebral infarction without residual deficits; Z95.810 Presence of automatic (implantable) cardiac defibrillator; Z79.82 Long term (current) use of aspirin; Z79.899 Other long term (current) drug therapy; Z99.81 Dependence on supplemental oxygen; Z79.01 Long term (current) use of anticoagulants; Z95.0 Presence of cardiac pacemaker
CPT/HCPCS: 71010; 80053; 82550; 82552; 82948; 83605; 83690; 83735; 83880; 84484; 85025; 85610; 85730; 86140; 87040; 93005; 94640; 94664; 96374; 99285; G0378; J1644; J1815; J1940; J1956; J2405

== ENCOUNTER 2017-12-20 08:02 | Inpatient (IN) ==
[2017-12-20 08:56] LABS: Baso # (Auto) 0.1 th/mm3 (0.0-0.2); Baso % (Auto) 1.1 % (0.0-2.0); Eos # (Auto) 0.2 th/mm3 (0.0-0.4); Eos % (Auto) 2.3 % (0.0-4.0); Hematocrit 38.1 % (35.0-46.0); Hemoglobin 12.7 gm/dL (11.6-15.3); Lymph # (Auto) 2.4 th/mm3 (1.0-4.8); Lymph % (Auto) 30.3 % (9.0-44.0); Mean Corpuscular HGB Conc 33.4 % (32.0-36.0); Mean Corpuscular Hemoglobin 29.6 pg (27.0-34.0); Mean Corpuscular Volume 88.5 fL (80.0-100.0); Mean Platelet Volume 10.9 fL (7.0-11.0); Mono # (Auto) 0.9 th/mm3 (0.0-0.9); Mono % (Auto) 11.7 % (0.0-8.0); Neut # (Auto) 4.3 th/mm3 (1.8-7.7); Neut % (Auto) 54.6 % (16.0-70.0); Platelet Count 218 th/mm3 (150-450); Red Cell Distribution Width 14.1 % (11.6-17.2)
--- NOTE | 2017-12-20 09:01 | XR ---
EXAM DATE: 12/20/2017 8:44 AM EDT AGE/SEX: 57 years / Female INDICATIONS: Chest pain. CLINICAL DATA: This is the patient's initial encounter. Patient reports that signs and symptoms have been present for 1 day and indicates a pain score of Nonresponsive. MEDICAL/SURGICAL HISTORY: . Chronic obstructive pulmonary disease. Asthma. Pacemaker. Lobect alvin. COMPARISON: [facility] [place], CHEST SINGLE AP, 12/11/2016. . FINDINGS: There has been some improvement with the scattered infiltrates compared to the prior examination. The re is improved aeration of both lung kamara. The lung kamara appear to be grossly clear on today's ex amination. The heart size is stable. There are no significant pleural effusions. There is no pneumoth orax. There is a pacemaker overlying the left chest. CONCLUSION: No focal or acute pulmonary infiltrates. Electronically signed by: Rocky Ontiveros MD 12/20/2017 8:59 AM EDT
[2017-12-20 09:06] LABS: Activated Partial Thrombo Time 29.4 sec (24.3-30.1); INR 1.2 Ratio; Prothrombin Time 11.8 sec (9.8-11.6)
[2017-12-20 09:09] LABS: ABG PCO2 36 mmHg (38-42); ABG PO2 147 mmHg (61-120)
[2017-12-20 09:14] LABS: Albumin 3.6 g/dL (3.4-5.0); Anion Gap 13 meq/L (5-15); Aspartate Aminotransferase 23 U/L (15-37); Blood Urea Nitrogen 13 mg/dL (7-18); Calcium 9.3 mg/dL (8.5-10.1); Carbon Dioxide 33.5 meq/L (21.0-32.0); Chloride 90 meq/L (98-107); Glomerular Filtration Rate 60 mL/min (>89); Glucose,Random 184 mg/dL (74-106); Lipase 132 U/L (73-393); Sodium 136 meq/L (136-145)
[2017-12-20 09:15] LABS: Alanine Aminotransferase 17 U/L (10-53)
[2017-12-20 09:18] LABS: Alkaline Phosphatase 152 U/L (45-117); Creatine Kinase 290 U/L (26-192); Total Protein 7.8 g/dL (6.4-8.2)
[2017-12-20 09:30] LABS: CKMB Percent 2.2 % (0.0-4.0); Creatine Kinase MB 6.5 ng/mL (0.5-3.6)
[2017-12-20 09:34] LABS: Eosinophils 4 % (0-4); Lymphocytes 26 % (9-44); Metamyelocytes 2 % (0-1); Monocytes 8 % (0-8); Myelocytes 2 % (0-0); Platelet Estimate Normal (Normal); Platelet Morphology Normal (Normal)
[2017-12-20 09:35] LABS: RBC Morphology Normal (Normal)
--- NOTE | 2017-12-20 09:52 | ED ---
HPI General Chief Complaint: Chest Pain Stated Complaint: Chest pain Time Seen by Provider: 12/20/17 08:18 History of Present Illness HPI narrative: This is a 57-year-old female with a history of CHF, cardiomyopathy, diabetes mellitus, obesity, chronic foot ulcer, who presents today with complaints of shortness of breath and chest pain. The patient is an extremely poor historian and was not answering the majority of questions asked. She would not elaborate any further. Therefore review of systems was limited as well as HPI. Complete Quality Measures for STEMI Alert Patients Related Data Home Medications Medication Instructions Recorded Confirmed albuterol sulfate [Ventolin HFA] 1 puff INHALATION Q4-6H PRN 12/20/17 12/20/17 alprazolam [Xanax] 0.5 mg PO TID PRN 12/20/17 12/20/17 amlodipine 5 mg PO DAILY 12/20/17 12/20/17 apixaban [Eliquis] 5 mg PO BID 12/20/17 12/20/17 furosemide [Lasix] 80 mg PO DAILY 12/20/17 12/20/17 gabapentin 600 mg PO TID 12/20/17 12/20/17 hydrocortisone 1 applic TOPICAL BID 12/20/17 12/20/17 linaclotide [Linzess] 72 mcg PO DAILY 12/20/17 12/20/17 pantoprazole [Protonix] 40 mg PO DAILY 12/20/17 12/20/17 potassium chloride 10 meq PO BID 12/20/17 12/20/17 promethazine 12.5 mg PO Q6H PRN 12/20/17 12/20/17 sacubitril-valsartan [Entresto] 1 tab PO BID 12/20/17 12/20/17 sulfamethoxazole-trimethoprim 1 tab PO BID 12/20/17 12/20/17 [Bactrim DS] Allergies Allergy/AdvReac Type Severity Reaction Status Date / Time amoxicillin Allergy Severe Diarrhea Unverified 12/20/17 08:09 clavulanic acid Allergy Severe Diarrhea Unverified 12/20/17 08:09 codeine Allergy Severe ITCH Unverified 12/20/17 08:09 sodium hypochlorite solution Allergy Severe SOB Unverified 12/20/17 08:09 *MDRO Multi-Drug Resistant AdvReac Unknown Swelling Uncoded 12/20/17 08:09 Organism Review of Systems ROS Unobtainable other (Patient would only provide shortness of breath and chest pain. She would not elaborate further.) Except as stated in HPI: all other systems reviewed are negative [facility] Medical History Medical History CHF (congestive heart failure) (Acute) COPD (chronic obstructive pulmonary disease) (Acute) Diabetes (Acute) Hyperlipemia (Acute) Hypertension (Acute) Hypothyroid (Acute) Pacemaker (Acute) Social History Social History Substance History: No History of Abuse Second Hand Smoke Exposure: No Smoking Status: Former smoker How Often Do You Have a Drink Containing Alcohol: Monthly or less Recent Travel in [facility] within the Last 8 Weeks: No Recent Out of Country Travel within the Last 8 Weeks: No Immunization History Tetanus Immunization: <5 Years Hx Influenza Vaccine This Season: Yes Exam Narrative Exam Narrative: GENERAL: Obese female in mild to moderate respiratory distress. SKIN: Focused skin assessment warm/dry. HEAD: Atraumatic. Normocephalic. EYES: No scleral icterus. No injection or drainage. ENT: Mucous membranes pink and moist. NECK: Trachea midline. Supple. CARDIOVASCULAR: Paced rhythm with a rate of 83. Appears ventricular. No murmur appreciated. RESPIRATORY: No accessory muscle use. Clear to auscultation. Breath sounds equal bilaterally. Large habitus and decreased respiratory effort injured auscultation. GASTROINTESTINAL: Abdomen soft, non-tender, nondistended. Hepatic and splenic margins not palpable. MUSCULOSKELETAL: No obvious deformities. No clubbing. No cyanosis. No edema. Chronic left foot wound. NEUROLOGICAL: Awake and fatigued. No obvious cranial nerve deficits. Motor grossly within normal limits. Normal speech. Course Initial Documented Vital Signs Temperature 98.2 F 12/20/17 08:09 Pulse Rate 52 L 12/20/17 08:09 Respiratory Rate 18 12/20/17 08:09 Blood Pressure 121/66 12/20/17 08:09 Pulse Oximetry 100 12/20/17 08:09 Last Documented Vital Signs Temperature 98.2 F 12/20/17 08:09 Pulse Rate 80 12/20/17 10:30 Respiratory Rate 20 12/20/17 10:30 Blood Pressure 121/66 12/20/17 08:09 Pulse Oximetry 100 12/20/17 08:13 Medical Decision Making MDM Narrative Medical decision making narrative: 57-year-old female with history of obesity, CHF, diabetes mellitus, hypertension, pacer/defibrillator, who presents today with complaints of shortness of breath, chest pain, nausea, and not feeling well. Patient also states that she has a loose lead on her defibrillator portion of her pacer a ICD. 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 Cardiac enzymes are within normal limits here for set. The patient's EKG showed a paced rhythm. Chest x-ray shows no evidence of acute failure. BNP was within normal limits. Given patient's comorbid conditions, she will be admitted under observation and ruled out. Case was discussed with Dr. Macias, [place] [facility]ist, who agrees. Differential Diagnosis Differential Diagnosis: CHF versus ACS versus pneumonia Lab Data Result diagrams: 12/20/17 08:25 12/20/17 08:25 Lab Results 12/20/17 12/20/17 12/20/17 Range/Units 08:18 08:25 08:25 WBC 8.0 (4.0-11.0) th/mm3 RBC 4.30 (4.00-5.30) mil/mm3 Hgb 12.7 (11.6-15.3) gm/dL Hct 38.1 (35.0-46.0) % MCV 88.5 (80.0-100.0) fL MCH 29.6 (27.0-34.0) pg MCHC 33.4 (32.0-36.0) % RDW 14.1 (11.6-17.2) % Plt Count 218 (150-450) th/mm3 MPV 10.9 (7.0-11.0) fL Prelim Diff (Auto) Slide review pending Neut % (Auto) 54.6 (16.0-70.0) % Lymph % (Auto) 30.3 (9.0-44.0) % Donley % (Auto) 11.7 H (0.0-8.0) % Eos % (Auto) 2.3 (0.0-4.0) % Baso % (Auto) 1.1 (0.0-2.0) % Neut # (Auto) 4.3 (1.8-7.7) th/mm3 Lymph # (Auto) 2.4 (1.0-4.8) th/mm3 Donley # (Auto) 0.9 (0.0-0.9) th/mm3 Eos # (Auto) 0.2 (0.0-0.4) th/mm3 Baso # (Auto) 0.1 (0.0-0.2) th/mm3 WBC Differential Manual diff final Seg Neuts % (Manual) 57 (16-70) % Band Neuts % (Manual) 1 (0-6) % Lymphocytes % (Manual) 26 (9-44) % Monocytes % (Manual) 8 (0-8) % Eosinophils % (Manual) 4 (0-4) % Metamyelocytes % (Man) 2 H (0-1) % Myelocytes % (Man) 2 H (0-0) % Abs Neuts (Manual) 5.0 (1.8-7.7) th/mm3 Differential Comment . Platelet Estimate Normal (Normal) Platelet Morphology Normal (Normal) RBC Morphology Normal (Normal) PT 11.8 H (9.8-11.6) sec INR 1.2 Ratio APTT 29.4 (24.3-30.1) sec Puncture Site Left radial Patient Temperature 98.6 O2 Saturation 98 (90-100) % ABG pH 7.58 H* (7.380-7.420) ABG pCO2 36 L (38-42) mmHg ABG pO2 147 H (61-120) mmHg ABG HCO3 34 H (22-26) mmol/L ABG O2 Content 17.7 (12.0-20.0) Vol % ABG Base Excess 11.0 H (-2-2) mmol/L ABG Methemoglobin 0.6 (0-2) % Magdiel Test Present Hemoglobin 12.7 (12.0-16.0) G/DL Carboxyhemoglobin 1.1 (0-4) % O2 Delivery Device Nasal cannula Liter Flow 2.00 L/M Inspired O2 21 % Critical Value Yes Sodium (136-145) meq/L Potassium (3.5-5.1) meq/L Chloride (98-107) meq/L Carbon Dioxide (21.0-32.0) meq/L Anion Gap (5-15) meq/L BUN (7-18) mg/dL Creatinine (0.50-1.00) mg/dL Estimated GFR (>89) mL/min Random Glucose (74-106) mg/dL Calcium (8.5-10.1) mg/dL Total Bilirubin (0.2-1.0) mg/dL AST (15-37) U/L ALT (10-53) U/L Alkaline Phosphatase (45-117) U/L Total Creatine Kinase (26-192) U/L CK-MB (CK-2) (0.5-3.6) ng/mL CK-MB (CK-2) % (0.0-4.0) % Troponin I (0.02-0.05) ng/mL B-Natriuretic Peptide (0-100) pg/mL Total Protein (6.4-8.2) g/dL Albumin (3.4-5.0) g/dL Lipase (73-393) U/L 12/20/17 12/20/17 Range/Units 08:25 08:25 WBC (4.0-11.0) th/mm3 RBC (4.00-5.30) mil/mm3 Hgb (11.6-15.3) gm/dL Hct (35.0-46.0) % MCV (80.0-100.0) fL MCH (27.0-34.0) pg MCHC (32.0-36.0) % RDW (11.6-17.2) % Plt Count (150-450) th/mm3 MPV (7.0-11.0) fL Prelim Diff (Auto) Neut % (Auto) (16.0-70.0) % Lymph % (Auto) (9.0-44.0) % Donley % (Auto) (0.0-8.0) % Eos % (Auto) (0.0-4.0) % Baso % (Auto) (0.0-2.0) % Neut # (Auto) (1.8-7.7) th/mm3 Lymph # (Auto) (1.0-4.8) th/mm3 Donley # (Auto) (0.0-0.9) th/mm3 Eos # (Auto) (0.0-0.4) th/mm3 Baso # (Auto) (0.0-0.2) th/mm3 WBC Differential Seg Neuts % (Manual) (16-70) % Band Neuts % (Manual) (0-6) % Lymphocytes % (Manual) (9-44) % Monocytes % (Manual) (0-8) % Eosinophils % (Manual) (0-4) % Metamyelocytes % (Man) (0-1) % Myelocytes % (Man) (0-0) % Abs Neuts (Manual) (1.8-7.7) th/mm3 Differential Comment Platelet Estimate (Normal) Platelet Morphology (Normal) RBC Morphology (Normal) PT (9.8-11.6) sec INR Ratio APTT (24.3-30.1) sec Puncture Site Patient Temperature O2 Saturation (90-100) % ABG pH (7.380-7.420) ABG pCO2 (38-42) mmHg ABG pO2 (61-120) mmHg ABG HCO3 (22-26) mmol/L ABG O2 Content (12.0-20.0) Vol % ABG Base Excess (-2-2) mmol/L ABG Methemoglobin (0-2) % Magdiel Test Hemoglobin (12.0-16.0) G/DL Carboxyhemoglobin (0-4) % O2 Delivery Device Liter Flow L/M Inspired O2 % Critical Value Sodium 136 (136-145) meq/L Potassium 3.0 L (3.5-5.1) meq/L Chloride 90 L (98-107) meq/L Carbon Dioxide 33.5 H (21.0-32.0) meq/L Anion Gap 13 (5-15) meq/L BUN 13 (7-18) mg/dL Creatinine 0.97 (0.50-1.00) mg/dL Estimated GFR 60 L (>89) mL/min Random Glucose 184 H (74-106) mg/dL Calcium 9.3 (8.5-10.1) mg/dL Total Bilirubin 0.6 (0.2-1.0) mg/dL AST 23 (15-37) U/L ALT 17 (10-53) U/L Alkaline Phosphatase 152 H (45-117) U/L Total Creatine Kinase 290 H (26-192) U/L CK-MB (CK-2) 6.5 H (0.5-3.6) ng/mL CK-MB (CK-2) % 2.2 (0.0-4.0) % Troponin I Less than 0.02 L (0.02-0.05) ng/mL B-Natriuretic Peptide 31 (0-100) pg/mL Total Protein 7.8 (6.4-8.2) g/dL Albumin 3.6 (3.4-5.0) g/dL Lipase 132 (73-393) U/L Imaging Data Radiologist's impression: Chest X-Ray 12/20/17 08:18 CONCLUSION: No focal or acute pulmonary infiltrates. Discharge Plan Discharge Disposition Patient Disposition: 30 Still Patient Discharge Details Diagnosis: Chest pain, Dyspnea, Paced cardiac rhythm, Left arm pain, Morbid obesity, Diabetes mellitus Physicians Team ED Provider: Erick Yost Primary Care Provider: Radha Hernandez Attending Provider: Caro Macias Status ED Status: With Doctor
[2017-12-20] MEDS ORDERED: Acetaminophen 500 MG Tablet PO ONE (10:17)
[2017-12-20] MEDS ORDERED: Bisacodyl 10 MG Supp RECTAL PRN (12:14)
--- NOTE | 2017-12-20 13:46 | ECG ---
Date Performed: 12/20/2017 Time Performed: 08:17:48 PTAGE: 57 years EKG: ELECTRONIC VENTRICULAR PACEMAKER ABNORMAL RHYTHM ECG Since the PREVIOUS TRACING , no significant change noted PREVIOUS TRACING DOCTOR: Gerardo Gallardo Interpretating Date/Time 12/20/2017 13:44:54
[2017-12-20] MEDS ORDERED: Enoxaparin Inj 40 MG/0.4 ML Syringe SQ SCH (15:00)
--- NOTE | 2017-12-20 16:46 | P.HP ---
History of Present Illness Service: [facility] Primary Care Physician: Radha Hernandez Chief Complaint: Chest pain History of Present Illness: Patient is a 57-year-old morbidly obese patient with primary medical history of HTN, HLD, DM, hypothyroidism, COPD, CHF who initially came into the hospital for complaints of chest pain described as she thinks the pacemaker is not working well. States that chest pain is usually on the left side of the chest radiating towards the left arm with numbness and tingling. Is not associated with nausea, vomiting, diaphoresis. States that she is being followed by Dr. Cummins and Dr. Sanches in the outpatient. Dr. Sanches placed the pacemaker. Previously replacements, this is the 6th. She also complains of left toe blister. Complains of generalized weakness was not walking 1 year, she also states that she does not stand or move around 1 year. Patient also relates that she has upper respiratory infection were and she was placed on Bactrim and clindamycin however she stopped taking clindamycin secondary to GI upset, no diarrhea. Patient states she also stopped taking Bactrim possibly 2 days back she does not know how many Bactrim pills she needs to take as she states that she is having difficulty swallowing the pills. Patient complains of dysphasia denies odynophagia. Complains of shortness of breath and dyspnea. Denies cough. Denies nausea, vomiting, diarrhea. Denies fevers, chills. Chest x-ray negative, EKG shows ventricular pacemaker rate - Diagnosis (1) Chest pain (2) Dyspnea (3) Paced cardiac rhythm Review of Systems All other systems reviewed negative except as stated in HPI [facility] - History History Provided By: Patient - Medical History Medical History: Medical History (Last Updated 12/20/17 @ 08:12 by Jessica Martinez) CHF (congestive heart failure) COPD (chronic obstructive pulmonary disease) Diabetes Hyperlipemia Hypertension Hypothyroid - Surgical History Surgical History: Surgical History (Last Updated 12/20/17 @ 16:38 by MARGARET Morris) Pacemaker (Acute) - Family History Family History: Family History (Last Updated 12/20/17 @ 16:40 by MARGARET Morris) Father Heart disease - Tobacco History Second Hand Smoke Exposure: No Smoking Status: Former smoker - Alcohol History How Often Do You Have a Drink Containing Alcohol: Monthly or less - Substance Use History Substance History: No History of Abuse - Travel History Recent Travel in the [place] Within the Last 8 Weeks: No Recent Travel Out of the Country Within the Last 8 Weeks: No - Immunization History Tetanus Immunization: <5 Years Hx Influenza Vaccine This Season: Yes Medications and Allergies Active Medications: Active Medications Acetaminophen (Tylenol) 650 mg PO Q4H PRN PRN Reason: Headache, fever, pain 1-5 Al Hydroxide/Mg Hydroxide (Milk Of Magnesia Liq) 30 ml PO Q12H PRN PRN Reason: Mild Constipation Bisacodyl (Dulcolax Supp) 10 mg RECTAL DAILY PRN PRN Reason: SEVERE CONSITIPATION Enoxaparin Sodium (Lovenox Inj) 40 mg SQ Q24H ERNESTINA Last Admin: 12/20/17 15:10 Dose: 40 mg Lactulose (Lactulose Liq) 30 ml PO DAILY PRN PRN Reason: SEVERE CONSITIPATION Sennosides (Senokot) 17.2 mg PO Q12H PRN PRN Reason: Moderate Constipation Sodium Chloride (Ns Flush) 2 ml IV.FLUSH UNSCH PRN PRN Reason: FLUSH AFTER USING IV ACCESS Allergies Allergy/AdvReac Type Severity Reaction Status Date / Time amoxicillin Allergy Severe Diarrhea Unverified 12/20/17 08:09 clavulanic acid Allergy Severe Diarrhea Unverified 12/20/17 08:09 codeine Allergy Severe ITCH Unverified 12/20/17 08:09 sodium hypochlorite solution Allergy Severe SOB Unverified 12/20/17 08:09 *MDRO Multi-Drug Resistant AdvReac Unknown Swelling Uncoded 12/20/17 08:09 Organism Home Medications Medication Instructions Recorded Confirmed Type albuterol sulfate [Ventolin HFA] 1 puff INHALATION Q4-6H PRN 12/20/17 12/20/17 History alprazolam [Xanax] 0.5 mg PO TID PRN 12/20/17 12/20/17 History amlodipine 5 mg PO DAILY 12/20/17 12/20/17 History apixaban [Eliquis] 5 mg PO BID 12/20/17 12/20/17 History furosemide [Lasix] 80 mg PO DAILY 12/20/17 12/20/17 History gabapentin 600 mg PO TID 12/20/17 12/20/17 History hydrocortisone 1 applic TOPICAL BID 12/20/17 12/20/17 History linaclotide [Linzess] 72 mcg PO DAILY 12/20/17 12/20/17 History pantoprazole [Protonix] 40 mg PO DAILY 12/20/17 12/20/17 History potassium chloride 10 meq PO BID 12/20/17 12/20/17 History promethazine 12.5 mg PO Q6H PRN 12/20/17 12/20/17 History sacubitril-valsartan [Entresto] 1 tab PO BID 12/20/17 12/20/17 History sulfamethoxazole-trimethoprim 1 tab PO BID 12/20/17 12/20/17 History [Bactrim DS] Exam Vital signs: Vital Signs 12/20/17 08:09 12/20/17 08:13 12/20/17 10:30 Temperature 98.2 F Pulse Rate 52 L 80 Respiratory Rate 18 20 20 Blood Pressure 121/66 Pulse Oximetry 100 100 12/20/17 13:44 12/20/17 14:53 Temperature 98.7 F Pulse Rate 84 80 Respiratory Rate 16 16 Blood Pressure 98/61 L 114/67 Pulse Oximetry 100 100 Intake & Output 12/19/17 12/20/17 12/20/17 18:59 06:59 18:59 Weight 226.796 kg Narrative: GENERAL: This is a morbidly obese patient, well-developed patient, in no apparent distress. SKIN: Warm and dry. Left fifth and fourth toe blister. Left breast scabbed wound healing HEENT: Normocephalic. Pupils equal round and reactive. Nose without bleeding. Airway patent. NECK: Trachea midline. Supple. CARDIOVASCULAR: Regular rate and rhythm without murmurs, gallops, or rubs. Left subclavian scar secondary to PPM RESPIRATORY: Clear to auscultation. Breath sounds equal bilaterally. No wheezes , rales, or rhonchi. GASTROINTESTINAL: Abdomen soft, non-tender, Obese. Bowel Sounds hypoactive MUSCULOSKELETAL: Extremities without clubbing, cyanosis, or edema. NEUROLOGICAL: Awake and alert. Oriented to time, place, person. Moves bilateral upper extremity. Bilateral lower extremity stiff, no spontaneous movement noted, positive foot drop. normal speech. Results - Labs CBC & Chem 7: 12/20/17 08:25 12/20/17 08:25 Labs: Laboratory Results - last 24 hr 12/20/17 12/20/17 12/20/17 08:18 08:25 08:25 WBC 8.0 RBC 4.30 Hgb 12.7 Hct 38.1 MCV 88.5 MCH 29.6 MCHC 33.4 RDW 14.1 Plt Count 218 MPV 10.9 Prelim Diff (Auto) Slide review pending Neut % (Auto) 54.6 Lymph % (Auto) 30.3 Banks % (Auto) 11.7 H Eos % (Auto) 2.3 Baso % (Auto) 1.1 Neut # (Auto) 4.3 Lymph # (Auto) 2.4 Banks # (Auto) 0.9 Eos # (Auto) 0.2 Baso # (Auto) 0.1 WBC Differential Manual diff final Seg Neuts % (Manual) 57 Band Neuts % (Manual) 1 Lymphocytes % (Manual) 26 Monocytes % (Manual) 8 Eosinophils % (Manual) 4 Metamyelocytes % (Man) 2 H Myelocytes % (Man) 2 H Abs Neuts (Manual) 5.0 Differential Comment . Platelet Estimate Normal Platelet Morphology Normal RBC Morphology Normal PT 11.8 H INR 1.2 APTT 29.4 Puncture Site Left radial Patient Temperature 98.6 O2 Saturation 98 ABG pH 7.58 H* ABG pCO2 36 L ABG pO2 147 H ABG HCO3 34 H ABG O2 Content 17.7 ABG Base Excess 11.0 H ABG Methemoglobin 0.6 Magdiel Test Present Hemoglobin 12.7 Carboxyhemoglobin 1.1 O2 Delivery Device Nasal cannula Liter Flow 2.00 Inspired O2 21 Critical Value Yes Sodium Potassium Chloride Carbon Dioxide Anion Gap BUN Creatinine Estimated GFR Random Glucose Calcium Total Bilirubin AST ALT Alkaline Phosphatase Total Creatine Kinase CK-MB (CK-2) CK-MB (CK-2) % Troponin I B-Natriuretic Peptide Total Protein Albumin Lipase 12/20/17 12/20/17 08:25 08:25 WBC RBC Hgb Hct MCV MCH MCHC RDW Plt Count MPV Prelim Diff (Auto) Neut % (Auto) Lymph % (Auto) Banks % (Auto) Eos % (Auto) Baso % (Auto) Neut # (Auto) Lymph # (Auto) Banks # (Auto) Eos # (Auto) Baso # (Auto) WBC Differential Seg Neuts % (Manual) Band Neuts % (Manual) Lymphocytes % (Manual) Monocytes % (Manual) Eosinophils % (Manual) Metamyelocytes % (Man) Myelocytes % (Man) Abs Neuts (Manual) Differential Comment Platelet Estimate Platelet Morphology RBC Morphology PT INR APTT Puncture Site Patient Temperature O2 Saturation ABG pH ABG pCO2 ABG pO2 ABG HCO3 ABG O2 Content ABG Base Excess ABG Methemoglobin Magdiel Test Hemoglobin Carboxyhemoglobin O2 Delivery Device Liter Flow Inspired O2 Critical Value Sodium 136 Potassium 3.0 L Chloride 90 L Carbon Dioxide 33.5 H Anion Gap 13 BUN 13 Creatinine 0.97 Estimated GFR 60 L Random Glucose 184 H Calcium 9.3 Total Bilirubin 0.6 AST 23 ALT 17 Alkaline Phosphatase 152 H Total Creatine Kinase 290 H CK-MB (CK-2) 6.5 H CK-MB (CK-2) % 2.2 Troponin I Less than 0.02 L B-Natriuretic Peptide 31 Total Protein 7.8 Albumin 3.6 Lipase 132 - Imaging Impressions Chest X-Ray 12/20/17 08:18 CONCLUSION: No focal or acute pulmonary infiltrates. Caprini VTE Risk Assessment Caprini VTE Risk Assessment: Moderate/High Risk (score >= 2) Caprini Risk Assessment Model: Point Value = 1 Point Value = 2 Point Value = 3 Point Value = 5 Age 41-60 Minor surgery BMI > 25 kg/m2 Swollen legs Varicose veins or History of unexplained or recurrent spontaneous Oral contraceptives or hormone replacement Sepsis (< 1 month) Serious lung disease, including pneumonia (< 1 month) Abnormal pulmonary function Acute myocardial infarction Congestive heart failure (< 1 month) History of inflammatory bowel disease Medical patient at bed rest Age 61-74 Arthroscopic surgery Major open surgery (> 45 min) Laparoscopic surgery (> 45 min) Malignancy Confined to bed (> 72 hours) Immobilizing plaster cast Central venous access Age >= 75 History of VTE Family history of VTE Factor V Leiden Prothrombin 12509E Lupus anticoagulant Anticardiolipin antibodies Elevated serum homocysteine Heparin-induced thrombocytopenia Other congenital or acquired thrombophilia Stroke (< 1 month) Elective arthroplasty Hip, pelvis, or leg fracture Acute spinal cord injury (< 1 month) Prophylaxis Regimen: Total Risk Factor Score Risk Level Prophylaxis Regimen 0-1 Low Early ambulation 2 Moderate Order ONE of the following: *Sequential Compression Device (SCD) *Heparin 5000 units SQ BID 3-4 Higher Order ONE of the following medications: *Heparin 5000 units SQ TID *Enoxaparin/Lovenox 40 mg SQ daily (WT < 150 kg, CrCl > 30 mL/min) *Enoxaparin/Lovenox 30 mg SQ daily (WT < 150 kg, CrCl > 10-29 mL/min) *Enoxaparin/Lovenox 30 mg SQ BID (WT < 150 kg, CrCl > 30 mL/min) AND/OR *Sequential Compression Device (SCD) 5 or more Highest Order ONE of the following medications: *Heparin 5000 units SQ TID (Preferred with Epidurals) *Enoxaparin/Lovenox 40 mg SQ daily (WT < 150 kg, CrCl > 30 mL/min) *Enoxaparin/Lovenox 30 mg SQ daily (WT < 150 kg, CrCl > 10-29 mL/min) *Enoxaparin/Lovenox 30 mg SQ BID (WT < 150 kg, CrCl > 30 mL/min) AND *Sequential Compression Device (SCD) Assessment and Plan - Assessment (1) Chest pain Code(s): R07.9 - Chest pain, unspecified Status: Acute (2) Dyspnea Code(s): R06.00 - Dyspnea, unspecified Status: Acute (3) Paced cardiac rhythm Status: Acute - Plan Patient is a 57-year-old morbidly obese patient with primary medical history of HTN, HLD, DM, hypothyroidism, COPD, CHF who initially came into the hospital for complaints of chest pain described as she thinks the pacemaker is not working well. Chest pain, rule out ACS -Serial troponin, serial EKG -First troponin negative, EKG shows ventricularly paced rhythm heart rate 83 -Chest x-ray negative -Continue to monitor HTN HLD CHF, not in exacerbation -Continue home medication Lasix, Entreso, apixaban, amlodipine -Monitor BP trend Morbidly obese Possible underlying COPD -Shortness of breath and dyspnea complaints, chest x-ray negative -States recovering from upper respiratory infection -Duo neb scheduled, Mucinex -Monitor respiratory status, O2 nasal cannula as needed keep O2 sat greater than 90%. -Possibly benefit from Symbicort DM 2 -Insulin sliding scale for now, states she takes Lantus at home -Monitor blood glucose. Check hemoglobin A1c Left 4th and 5th toe blister -Xray Focal soft tissue swelling involving the fourth toe. The underlying bony structures are grossly intact. -Wound care consult Mild Hypokalemia -Replacement DVT Apixaban Code Status: Full Code Discussed Condition With: Patient, nursing Discharge Planning: DC when clinically improved (1) Chest pain Qualifiers: Chest pain type: unspecified Qualified Code(s): R07.9 - Chest pain, unspecified (2) Dyspnea Qualifiers: Dyspnea type: shortness of breath Qualified Code(s): R06.02 - Shortness of breath; R06.00 - Dyspnea, unspecified; R06.01 - Orthopnea
--- NOTE | 2017-12-20 17:22 | XR ---
EXAM DATE: 12/20/2017 5:19 PM EDT AGE/SEX: 57 years / Female INDICATIONS: Inflammation. CLINICAL DATA: This is the patient's initial encounter. Patient reports that signs and symptoms have been present for 2 weeks and indicates a pain score of 10/10. MEDICAL/SURGICAL HISTORY: Hypertension. Diabetes mellitus type II. Congestive heart failure. Chronic obstructive pulmonary disease. Asthma. section. Pacemaker. Right lung Lobectomy. Left ankle. COMPARISON: No prior exams available for comparison. FINDINGS: There is soft tissue swelling of the fourth toe. The bony structures are grossly intact. No acute fra cture or joint dislocation is seen. There is no evidence of any bony erosion or destruction. The rest of the bony structures appear to be grossly intact. CONCLUSION: Focal soft tissue swelling involving the fourth toe. The underlying bony structures are grossly intac t. Electronically signed by: Rocky Ontiveros MD 12/20/2017 5:21 PM EDT
[2017-12-20] MEDS: Gabapentin 300 MG Capsule PO SCH (19:28)
[2017-12-20] MEDS: guaiFENesin 600 MG ER Tablet PO SCH (20:02)
[2017-12-20 22:38] LABS: Hemoglobin A1c 8.6 % (4.3-6.0)
[2017-12-21] MEDS: Acetaminophen-HYDROcodone 325/7.5 Liq 15 ML UDC NG/OG PRN ×5 (01:29→19:15)
[2017-12-21 02:40] LABS: Baso # (Auto) 0.1 th/mm3 (0.0-0.2); Baso % (Auto) 1.2 % (0.0-2.0); Eos # (Auto) 0.1 th/mm3 (0.0-0.4); Eos % (Auto) 1.6 % (0.0-4.0); Hematocrit 37.2 % (35.0-46.0); Hemoglobin 12.4 gm/dL (11.6-15.3); Lymph # (Auto) 2.2 th/mm3 (1.0-4.8); Lymph % (Auto) 30.9 % (9.0-44.0); Mean Corpuscular HGB Conc 33.3 % (32.0-36.0); Mean Corpuscular Hemoglobin 29.5 pg (27.0-34.0); Mean Corpuscular Volume 88.5 fL (80.0-100.0); Mean Platelet Volume 10.4 fL (7.0-11.0); Mono # (Auto) 0.8 th/mm3 (0.0-0.9); Mono % (Auto) 10.9 % (0.0-8.0); Neut # (Auto) 3.9 th/mm3 (1.8-7.7); Neut % (Auto) 55.4 % (16.0-70.0); Platelet Count 192 th/mm3 (150-450); Red Cell Distribution Width 14.4 % (11.6-17.2); White Blood Count 7.1 th/mm3 (4.0-11.0)
[2017-12-21 03:10] LABS: Alanine Aminotransferase 16 U/L (10-53); Albumin 3.5 g/dL (3.4-5.0); Anion Gap 10 meq/L (5-15); Aspartate Aminotransferase 24 U/L (15-37); Blood Urea Nitrogen 16 mg/dL (7-18); Calcium 9.2 mg/dL (8.5-10.1); Carbon Dioxide 35.5 meq/L (21.0-32.0); Chloride 93 meq/L (98-107); Glomerular Filtration Rate 58 mL/min (>89); Glucose,Random 200 mg/dL (74-106); Potassium 3.2 meq/L (3.5-5.1); Sodium 138 meq/L (136-145)
[2017-12-21 03:12] LABS: Alkaline Phosphatase 137 U/L (45-117); Total Protein 7.3 g/dL (6.4-8.2)
[2017-12-21 03:29] LABS: Eosinophils 1 % (0-4); Lymphocytes 26 % (9-44); Metamyelocytes 1 % (0-1); Monocytes 8 % (0-8)
[2017-12-21 03:32] LABS: Ovalocytes 1+; Platelet Estimate Normal (Normal); Platelet Morphology Normal (Normal)
[2017-12-21] MEDS ORDERED: Potassium Chloride 25 MEQ Effervescent Tablet PO ONE (08:20)
--- NOTE | 2017-12-21 08:44 | ECG ---
Date Performed: 12/20/2017 Time Performed: 17:57:24 PTAGE: 57 years EKG: ELECTRONIC VENTRICULAR PACEMAKER ABNORMAL RHYTHM ECG PREVIOUS TRACING : 12/20/2017 13.54 No significant change from previous tracing noted. DOCTOR: Randolph Coello Interpretating Date/Time 12/21/2017 08:42:47
--- NOTE | 2017-12-21 08:54 | ECG ---
Date Performed: 12/20/2017 Time Performed: 13:54:07 PTAGE: 57 years EKG: ELECTRONIC VENTRICULAR PACEMAKER PREVIOUS TRACING : 12/20/2017 08.17 No significant change from previous tracing noted. DOCTOR: Randolph Coello Interpretating Date/Time 12/21/2017 08:53:12
[2017-12-21] MEDS ORDERED: Linaclotide [Linzess] 72 MCG PO SCH (09:00)
[2017-12-21] MEDS: Gabapentin 300 MG Capsule PO SCH ×3 (09:20→19:14)
[2017-12-21] MEDS: guaiFENesin 600 MG ER Tablet PO SCH ×2 (09:20→20:51)
--- NOTE | 2017-12-21 09:46 | P.PN ---
Subjective Interval history: Follow-up visit morbidly obese, HTN, HLD, DM, COPD, PPM/AICD, CHF. Patient seen and examined today. Reports she continues to have some shortness of breath and wanting DuoNeb treatments. Occasional cough but not expectorating anything. Reports that she feels her pacemaker/AICD is not working well. States she continues to have generalized weakness. Otherwise, denies SOB/ dyspnea. Denies chest pain, palpitations, headaches, dizziness. Denies fevers, chills, n/v/d. Denies dysuria. Physical Exam Vital signs: Vital Signs 12/20/17 10:30 12/20/17 13:44 12/20/17 14:53 Temperature 98.7 F Pulse Rate 80 84 80 Respiratory Rate 20 16 16 Blood Pressure 98/61 L 114/67 Pulse Oximetry 100 100 12/20/17 20:00 12/20/17 21:04 12/21/17 00:00 Temperature 97.9 F 98.3 F Pulse Rate 74 76 Respiratory Rate 15 17 Blood Pressure 115/64 118/62 Pulse Oximetry 99 94 L 100 12/21/17 02:26 12/21/17 04:00 12/21/17 05:27 Temperature 98.1 F Pulse Rate 86 85 85 Respiratory Rate 15 16 Blood Pressure 106/59 L Pulse Oximetry 98 12/21/17 08:20 12/21/17 08:31 Temperature 98.6 F Pulse Rate 70 81 Respiratory Rate 20 18 Blood Pressure 108/60 Pulse Oximetry 100 Intake & Output 12/20/17 12/21/17 12/21/17 18:59 06:59 18:59 Weight 226.796 kg Narrative: GENERAL: This is a morbidly obese patient, well-developed patient, in no apparent distress. SKIN: Warm and dry. Left fifth and fourth toe blister. Left breast scabbed wound healing HEENT: Normocephalic. Pupils equal round and reactive. Nose without bleeding. Airway patent. NECK: Trachea midline. Supple. CARDIOVASCULAR: Regular rate and rhythm without murmurs, gallops, or rubs. Left subclavian scar secondary to PPM RESPIRATORY: Clear to auscultation. Breath sounds equal bilaterally. No wheezes , rales, or rhonchi. GASTROINTESTINAL: Abdomen soft, non-tender, Obese. Bowel Sounds hypoactive MUSCULOSKELETAL: Extremities without clubbing, cyanosis, or edema. NEUROLOGICAL: Awake and alert. Oriented to time, place, person. Moves bilateral upper extremity. Bilateral lower extremity stiff, no spontaneous movement noted, positive foot drop. normal speech. Results - Labs CBC & Chem 7: 12/21/17 02:29 12/21/17 02:29 Laboratory Results - last 24 hr 12/20/17 12/20/17 12/20/17 08:25 08:25 19:47 WBC RBC Hgb Hct MCV MCH MCHC RDW Plt Count MPV Prelim Diff (Auto) Neut % (Auto) Lymph % (Auto) Dukes % (Auto) Eos % (Auto) Baso % (Auto) Neut # (Auto) Lymph # (Auto) Dukes # (Auto) Eos # (Auto) Baso # (Auto) WBC Differential Seg Neuts % (Manual) Band Neuts % (Manual) Lymphocytes % (Manual) Monocytes % (Manual) Eosinophils % (Manual) Basophils % (Manual) Metamyelocytes % (Man) Abs Neuts (Manual) Differential Comment Platelet Estimate Platelet Morphology Ovalocytes Keratocytes Sodium Potassium Chloride Carbon Dioxide Anion Gap BUN Creatinine Estimated GFR POC Glucose Random Glucose Hemoglobin A1c 8.6 H Calcium Magnesium Total Bilirubin AST ALT Alkaline Phosphatase Troponin I Less than 0.02 L B-Natriuretic Peptide 31 Total Protein Albumin 12/21/17 12/21/17 12/21/17 02:29 02:29 02:29 WBC 7.1 RBC 4.20 Hgb 12.4 Hct 37.2 MCV 88.5 MCH 29.5 MCHC 33.3 RDW 14.4 Plt Count 192 MPV 10.4 Prelim Diff (Auto) Slide review pending Neut % (Auto) 55.4 Lymph % (Auto) 30.9 Dukes % (Auto) 10.9 H Eos % (Auto) 1.6 Baso % (Auto) 1.2 Neut # (Auto) 3.9 Lymph # (Auto) 2.2 Dukes # (Auto) 0.8 Eos # (Auto) 0.1 Baso # (Auto) 0.1 WBC Differential Manual diff final Seg Neuts % (Manual) 59 Band Neuts % (Manual) 2 Lymphocytes % (Manual) 26 Monocytes % (Manual) 8 Eosinophils % (Manual) 1 Basophils % (Manual) 3 H Metamyelocytes % (Man) 1 Abs Neuts (Manual) 4.4 Differential Comment . Platelet Estimate Normal Platelet Morphology Normal Ovalocytes 1+ H Keratocytes Occ H Sodium 138 Potassium 3.2 L Chloride 93 L Carbon Dioxide 35.5 H Anion Gap 10 BUN 16 Creatinine 1.00 Estimated GFR 58 L POC Glucose Random Glucose 200 H Hemoglobin A1c Calcium 9.2 Magnesium 1.9 Total Bilirubin 0.5 AST 24 ALT 16 Alkaline Phosphatase 137 H Troponin I Less than 0.02 L B-Natriuretic Peptide Total Protein 7.3 Albumin 3.5 12/21/17 09:20 WBC RBC Hgb Hct MCV MCH MCHC RDW Plt Count MPV Prelim Diff (Auto) Neut % (Auto) Lymph % (Auto) Dukes % (Auto) Eos % (Auto) Baso % (Auto) Neut # (Auto) Lymph # (Auto) Dukes # (Auto) Eos # (Auto) Baso # (Auto) WBC Differential Seg Neuts % (Manual) Band Neuts % (Manual) Lymphocytes % (Manual) Monocytes % (Manual) Eosinophils % (Manual) Basophils % (Manual) Metamyelocytes % (Man) Abs Neuts (Manual) Differential Comment Platelet Estimate Platelet Morphology Ovalocytes Keratocytes Sodium Potassium Chloride Carbon Dioxide Anion Gap BUN Creatinine Estimated GFR POC Glucose 180 H Random Glucose Hemoglobin A1c Calcium Magnesium Total Bilirubin AST ALT Alkaline Phosphatase Troponin I B-Natriuretic Peptide Total Protein Albumin - Imaging Impressions Toe X-Ray 12/20/17 00:00 CONCLUSION: Focal soft tissue swelling involving the fourth toe. The underlying bony structures are grossly intact. Assessment and Plan - Assessment (1) Chest pain Code(s): R07.9 - Chest pain, unspecified Status: Acute (2) Dyspnea Code(s): R06.00 - Dyspnea, unspecified Status: Acute (3) Paced cardiac rhythm Status: Acute - Plan Patient is a 57-year-old morbidly obese patient with primary medical history of HTN, HLD, DM, hypothyroidism, COPD, CHF who initially came into the hospital for complaints of chest pain described as she thinks the pacemaker is not working well. Chest pain, rule out ACS PPM/ AICD -Serial troponin negative, serial EKG -EKG shows ventricularly paced rhythm heart rate 83 -Chest x-ray negative -PPM interogation with abnormality -Consult cardiology for further recommendation HTN HLD CHF, not in exacerbation -Continue home medication Lasix, Entreso, apixaban, amlodipine -Monitor BP trend Morbidly obese Possible underlying COPD -Shortness of breath and dyspnea complaints, chest x-ray negative -States recovering from upper respiratory infection -Duo neb scheduled, Mucinex -Monitor respiratory status, O2 nasal cannula as needed keep O2 sat greater than 90%. -Start Symbicort DM 2 -Insulin sliding scale for now, states she takes Lantus at home -Monitor blood glucose. Check hemoglobin A1c -Will verify Lantus dose and restart Left 4th and 5th toe blister -Xray Focal soft tissue swelling involving the fourth toe. The underlying bony structures are grossly intact. -Wound care consult -Culture Mild Hypokalemia -Replacement -Magnesium 1.9, will give IV magnesium Reports dysphasia -Speech therapy eval and treat -Recommended for regular diet with thin liquids. No dysphasia noted Morbidly obese, debilitated -States she has not walked for more than a year. Transfers to her motorized wheelchair. States at home with family. -Physical therapy eval and treat to meet needs. -OT eval and treat DVT Apixaban Code Status: Full code Discussed Condition With: Patient, nursing, CM Discharge Planning: DC when clinically improved (1) Chest pain Qualifiers: Chest pain type: unspecified Qualified Code(s): R07.9 - Chest pain, unspecified (2) Dyspnea Qualifiers: Dyspnea type: shortness of breath Qualified Code(s): R06.02 - Shortness of breath; R06.00 - Dyspnea, unspecified; R06.01 - Orthopnea
[2017-12-21] MEDS ORDERED: Dextrose 50% in Water 50 ML Vial IV.PUSH PRN (10:34)
[2017-12-21] MEDS ORDERED: Mag Sulf 1 gm/100 ml Premix 100 ML IV.SIG ONE (12:00)
[2017-12-21] MEDS: amLODIPine 5 MG Tablet PO SCH (12:28)
[2017-12-21] MEDS: Furosemide 80 MG Tablet PO SCH (12:28)
[2017-12-21] MEDS: Insulin NovoLOG Aspart Correctional Sugar Inj SQ SCH ×3 (13:50→21:07)
--- NOTE | 2017-12-21 15:21 | MB ---
cc: Marvin Penaloza MD DATE: 12/21/2017 CHIEF COMPLAINT: Chest discomfort, pacemaker check. HISTORY OF PRESENT ILLNESS: Mrs. Britt Mace is a very pleasant 57-year-old female. She has history of obesity, history of nonischemic cardiomyopathy, status post AICD, history of hypertension, hyperlipidemia, diabetes type 2, who reports that she has been experiencing episode of left arm tingling and numbness as well as sharp discomfort in the middle of her sternum. The patient also complains of a left toe blister. She also complains of generalized weakness. She unfortunately had been having a two week episode of cough for which she was placed on antibiotics; however, she stopped antibiotics secondary to gastrointestinal upset. Currently, the patient reports that she is chest pain free; however, she feels as though her pacemaker is not functioning appropriately. We did have the pacemaker interrogated and it appears as though the function of the pacemaker is appropriate. I had Dr. Sanches confirm this finding and Dr. Sanches spoke with the patient over the telephone. EKG shows ventricular paced rhythm with no acute abnormalities. Troponins have been negative x3. PAST MEDICAL HISTORY: 1. Dilated cardiomyopathy, status post AICD. 2. Chronic obstructive pulmonary disease. 3. Diabetes type 2. 4. Hypertension. 5. Hyperlipidemia. 6. Hypothyroidism. FAMILY HISTORY: No sudden cardiac . SOCIAL HISTORY: No current tobacco, alcohol or illicit drug use. MEDICATIONS: Reviewed in electronic medical record. PHYSICAL EXAMINATION: VITAL SIGNS: Blood pressure 122/64, heart rate 60. GENERAL: She is obese. No apparent distress. SKIN: Left fourth toe blister. There is a left breast scabbed wound. EYES: No scleral icterus. OROPHARYNX: Moist mucous membranes. CARDIOVASCULAR: Regular rate and rhythm. No murmurs, rubs or gallops. LUNGS: Clear to auscultation. ABDOMEN: Soft, nontender and nondistended. EXTREMITIES: Chronic edema. NEUROLOGIC: A and O x3. LABORATORY DATA: Reviewed in the electronic medical record. ASSESSMENT AND PLAN: 1. Chest pain: I do not believe that her chest pain is cardiac in etiology. As such, she has had negative troponins and no changes suggestive of ischemia. No further workup at this time. 2. Pacemaker evaluation: Her pacemaker was evaluated, does not appear to have a dysfunction. The patient was notified of this. Thank you for allowing us to participate in the care of Mrs. Britt Mace. Please feel free to contact us with any further questions regarding her care. MD RIKI Mendoza/SB , 03:05 PM , 03:14 PM
--- NOTE | 2017-12-21 17:15 | P.DCO ---
- Physical Therapy Order: Evaluate and treat - Occupational Therapy Order: Evaluate and treat - Home Health Nursing Order: Signs/symptoms of disease process, Oxygen administration education, Medication education-adverse effect, Wound care and dressing changes, Nursing assessment with vital signs - Design Printer Balloon Order: To evaluate: Living conditions/environment, Support services Order: To provide: Community services - Certification I have seen patient Britt Mace on 12/21/17. My clinical findings support the need for the requested home health care services because: Deconditioned with increased weakness, Medication compliance is questionable, Limited ability to care for self I certify that my clinical findings support that this patient is homebound because: Hx COPD - exertion dyspnea/weakness, Unsteady gait/balance, Non-ambulatory: confined to bed or chair
[2017-12-21] MEDS: Budesonide-Formoterol 160/4.5 MCG 6 GM Inhaler INH SCH ×2 (19:13→20:52)
[2017-12-22] MEDS: Acetaminophen 325 MG Tablet PO PRN (00:24)
[2017-12-22] MEDS: Acetaminophen-HYDROcodone 325/7.5 Liq 15 ML UDC NG/OG PRN (05:33)
[2017-12-22 08:03] LABS: Calcium 9.2 mg/dL (8.5-10.1); Carbon Dioxide 34.4 meq/L (21.0-32.0)
[2017-12-22] MEDS: amLODIPine 5 MG Tablet PO SCH (09:19)
[2017-12-22] MEDS: Gabapentin 300 MG Capsule PO SCH ×3 (09:19→18:33)
[2017-12-22] MEDS: Insulin NovoLOG Aspart Correctional Sugar Inj SQ SCH ×4 (09:20→23:06)
[2017-12-22] MEDS: Furosemide 80 MG Tablet PO SCH (09:22)
[2017-12-22] MEDS: guaiFENesin 600 MG ER Tablet PO SCH (09:23)
[2017-12-22] MEDS: Budesonide-Formoterol 160/4.5 MCG 6 GM Inhaler INH SCH ×2 (09:23→23:07)
--- NOTE | 2017-12-22 09:50 | P.PNIM ---
Subjective Interval history: Follow-up visit morbidly obese, HTN, HLD, DM, COPD, PPM/AICD, CHF. RN at bedside. Patient's chief complaint today is sinus congestion. She also complains of some itching, but no rash or wheezing. She reports constipation 16 days. She has been bed bound for nearly a year. She does not feel adequately cared for in her current living situation. She has been participating in PT in bed. She was seen by cardiology yesterday, she remains convinced that her pacemaker is not functioning correctly. Physical Exam Vital signs: Vital Signs 12/21/17 12:02 12/21/17 13:12 12/21/17 15:58 Temperature 98.6 F Pulse Rate 80 85 65 Respiratory Rate 20 18 20 Blood Pressure 120/62 122/64 Pulse Oximetry 96 97 12/21/17 19:48 12/21/17 19:49 12/21/17 20:00 Temperature 98.6 F Pulse Rate 68 81 Respiratory Rate 16 16 Blood Pressure 92/51 L Pulse Oximetry 95 100 12/21/17 23:45 12/22/17 03:30 12/22/17 03:50 Temperature 97.7 F 98.3 F Pulse Rate 72 72 80 Respiratory Rate 15 16 18 Blood Pressure 97/49 L 108/56 L Pulse Oximetry 99 90 L 12/22/17 05:56 12/22/17 06:29 12/22/17 08:00 Temperature 97.6 F Pulse Rate 66 74 Respiratory Rate 22 Blood Pressure 119/56 L Pulse Oximetry 95 100 12/22/17 08:05 12/22/17 08:12 Temperature Pulse Rate 80 80 Respiratory Rate 18 Blood Pressure Pulse Oximetry 99 Intake & Output 12/21/17 12/22/17 12/22/17 18:59 06:59 18:59 Intake Total 100 / 100 Balance 100 / 100 Intake: IV 100 / 100 Magnesium Sulfate 1 gm/D5W 100 100 / 100 ml Premix 100 ML @ 100 mls/hr IV.SIG ONCE ONE Rx#:[id number] Narrative: GENERAL: Well-developed well-nourished. Super morbid obesity. In no acute distress. SKIN: Warm and dry. Left fifth and fourth toe blister. Left breast scabbed wound healing. No rash or hives. HEENT: Normocephalic. Pupils equal and round. Mucous membranes pink and moist. CARDIOVASCULAR: Regular rate and rhythm. No murmur appreciated. RESPIRATORY: No accessory muscle use. Clear to auscultation. Breath sounds equal bilaterally. No wheezing. GASTROINTESTINAL: Abdomen soft, non-tender, nondistended. Bowel sounds x4. MUSCULOSKELETAL: No clubbing or cyanosis. No edema. NEUROLOGICAL: Awake and alert. Moves upper and lower extremities spontaneously. Normal speech. PSYCHIATRIC: A bit histrionic mood and affect; insight and judgment normal. Results - Labs CBC & Chem 7: 12/21/17 02:29 12/22/17 07:22 Laboratory Results - last 24 hr 12/21/17 12/21/17 12/21/17 02:29 12:31 17:43 Sodium Potassium Chloride Carbon Dioxide Anion Gap BUN Creatinine Estimated GFR POC Glucose 207 H 206 H Random Glucose Calcium Magnesium 1.9 12/21/17 12/22/17 12/22/17 20:58 07:22 08:42 Sodium 136 Potassium 3.0 L Chloride 91 L Carbon Dioxide 34.4 H Anion Gap 11 BUN 15 Creatinine 0.83 Estimated GFR 71 L POC Glucose 240 H 208 H Random Glucose 179 H Calcium 9.2 Magnesium Microbiology 12/21/17 12:45 Wound - Toe Gram Stain - Final - Imaging Impressions Toe X-Ray 12/20/17 00:00 CONCLUSION: Focal soft tissue swelling involving the fourth toe. The underlying bony structures are grossly intact. Assessment and Plan - Plan Patient is a 57-year-old morbidly obese patient with primary medical history of HTN, HLD, DM, hypothyroidism, COPD, CHF who initially came into the hospital for complaints of chest pain described as she thinks the pacemaker is not working well. Chest pain, rule out ACS PPM/ AICD -No further chest pain -Serial EKG and troponins negative -PPM interogation done, functioning device -Consulted cardiology, for further recommendations HTN HLD CHF, not in exacerbation Paroxysmal atrial fibrillation, rate is controlled -Continue home medication Lasix, Entreso, apixaban, amlodipine -Monitor BP trend -Resume home potassium supple Shortness of breath and dyspnea complaints -Sounds more upper respiratory and chest x-ray negative -Duo neb scheduled, guaifenesin -Monitor respiratory status, O2 nasal cannula as needed keep O2 sat greater than 90%. -Started Symbicort DM 2 Hemoglobin A1c 8.6 -Insulin sliding scale for now, states she takes Lantus at home -Monitor blood glucose. -Will verify Lantus dose and restart Left 4th and 5th toe blister -Xray Focal soft tissue swelling involving the fourth toe. The underlying bony structures are grossly intact. -Wound care consult -Culture pending Morbidly obese, debilitated -States she has not walked for more than a year. 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 ASSOCIATE DIRECTOR OF SALES visits. -Physical therapy eval and treat. -OT eval and treat -Possibly needs short-term sniff and long-term care -Case management consult Itching -no rash or signs of anaphylaxis -Benadryl as needed Constipation -Discussed plan with RN -Aggressive bowel regimen today -Possible enema tomorrow if not improved DVT Apixaban Discharge Planning: Wean O2. Discharge planning a safe discharge planning can be arranged, appreciate case management assistance.
[2017-12-22] MEDS ORDERED: diphenhydrAMINE HCl 12.5 MG/5 ML Elixir UDC PO PRN (10:00)
[2017-12-22] MEDS ORDERED: RESP: Acetylcysteine 10% 4 ML Neb NEB ONE (10:30)
[2017-12-22] MEDS: Potassium Chloride 25 MEQ Effervescent Tablet PO SCH (13:21)
[2017-12-22] MEDS ORDERED: Sodium Chlor 0.9% Inj 500 ML IV.SIG ONE ×2 (20:47→22:51)
[2017-12-23] MEDS ORDERED: Sod Chloride 0.9% Inj 1,000 ML IV.SIG ONE (00:16)
[2017-12-23] MEDS: Gabapentin 300 MG Capsule PO SCH ×3 (09:12→18:14)
[2017-12-23] MEDS: Insulin NovoLOG Aspart Correctional Sugar Inj SQ SCH ×4 (09:13→21:52)
[2017-12-23] MEDS: Potassium Chloride 25 MEQ Effervescent Tablet PO SCH (09:13)
[2017-12-23] MEDS: Budesonide-Formoterol 160/4.5 MCG 6 GM Inhaler INH SCH ×2 (09:14→21:07)
--- NOTE | 2017-12-23 10:30 | P.PN ---
Subjective Interval history: Follow-up visit morbidly obese, HTN, HLD, DM, COPD, PPM/AICD, CHF. RN at bedside. Slowly waking up, no acute concerns. Denies any chest pain, SOB, fever , chills. Physical Exam Vital signs: Vital Signs 12/22/17 11:01 12/22/17 11:24 12/22/17 12:20 Temperature 97.5 F L Pulse Rate 82 92 H 94 H Respiratory Rate 16 18 Blood Pressure 99/58 L Pulse Oximetry 96 12/22/17 14:39 12/22/17 16:00 12/22/17 16:26 Temperature 98.7 F Pulse Rate 92 H 88 90 Respiratory Rate 19 16 Blood Pressure 87/58 L Pulse Oximetry 100 12/22/17 19:38 12/22/17 20:00 12/22/17 20:22 Temperature 99.4 F Pulse Rate 92 H 94 H Respiratory Rate 16 18 Blood Pressure 81/51 L Pulse Oximetry 98 94 L 96 12/22/17 21:41 12/22/17 23:58 12/23/17 00:00 Temperature 98.8 F Pulse Rate 87 80 Respiratory Rate 18 Blood Pressure 87/52 L 76/57 L Pulse Oximetry 96 12/23/17 01:51 12/23/17 03:10 12/23/17 07:14 Temperature 98.8 F Pulse Rate 78 78 Respiratory Rate 18 15 Blood Pressure 92/56 L 99/58 L Pulse Oximetry 99 99 12/23/17 07:47 12/23/17 08:12 Temperature 98.0 F Pulse Rate 82 75 Respiratory Rate 20 Blood Pressure 87/52 L Pulse Oximetry 96 Intake & Output 12/22/17 12/23/17 12/23/17 18:59 06:59 18:59 Intake Total 1999 Balance 1999 Intake: IV 1999 NS Inj 1,000 ML @ Wide Open IV. 1000 / 1000 SIG BOLUS ONE Rx#:[id number] NS Inj 500 ML @ Wide Open IV. 1000 / 1000 SIG BOLUS ONE Rx#:[id number] Narrative: GENERAL: Well-developed well-nourished. Super morbid obesity. In no acute distress. SKIN: Warm and dry. Left fifth and fourth toe blister. Left breast scabbed wound healing. No rash or hives. HEENT: Normocephalic. Pupils equal and round. Mucous membranes pink and moist. CARDIOVASCULAR: Regular rate and rhythm. No murmur appreciated. RESPIRATORY: No accessory muscle use. Clear to auscultation. Breath sounds equal bilaterally. No wheezing. GASTROINTESTINAL: Abdomen soft, non-tender, nondistended. Bowel sounds x4. MUSCULOSKELETAL: No clubbing or cyanosis. No edema. NEUROLOGICAL: Awake and alert. Moves upper and lower extremities spontaneously. Normal speech. PSYCHIATRIC: A bit histrionic mood and affect; insight and judgment normal. Results - Labs CBC & Chem 7: 12/21/17 02:29 12/22/17 07:22 Laboratory Results - last 24 hr 12/22/17 12/22/17 12/22/17 12:59 17:55 21:08 POC Glucose 194 H 220 H 215 H 12/23/17 08:38 POC Glucose 227 H Microbiology 12/21/17 12:45 Wound - Toe Gram Stain - Final 12/21/17 12:45 Wound - Toe Wound Culture - Preliminary No growth in 48 hours Assessment and Plan - Assessment (1) Chest pain Code(s): R07.9 - Chest pain, unspecified Status: Acute (2) Dyspnea Code(s): R06.00 - Dyspnea, unspecified Status: Acute (3) Paced cardiac rhythm Status: Acute - Plan Patient is a 57-year-old morbidly obese patient with primary medical history of HTN, HLD, DM, hypothyroidism, COPD, CHF who initially came into the hospital for complaints of chest pain described as she thinks the pacemaker is not working well. Chest pain, rule out ACS PPM/ AICD -No further chest pain -Serial EKG and troponins negative -AICD interogation done, functioning properly. -Consulted cardiology, for further recommendations HTN HLD CHF, not in exacerbation Paroxysmal atrial fibrillation, rate is controlled -Continue home medication Lasix, Entreso, apixaban, amlodipine -Monitor BP trend -Resume home potassium supple Shortness of breath and dyspnea complaints -Sounds more upper respiratory and chest x-ray negative -Duo neb scheduled, guaifenesin -Monitor respiratory status, O2 nasal cannula as needed keep O2 sat greater than 90%. -Started Symbicort DM 2 Hemoglobin A1c 8.6 -Insulin sliding scale for now, states she takes Lantus at home -Will start patient on Levemir 10 units QHS and titrate. Left 4th and 5th toe blister -Xray Focal soft tissue swelling involving the fourth toe. The underlying bony structures are grossly intact. -Wound care consult -Culture pending Morbidly obese, debilitated -States she has not walked for more than a year. 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 IT SENIOR SOFTWARE ENGINEER JAVA visits. -Physical therapy eval and treat. -OT eval and treat -Possibly needs short-term sniff and long-term care -Case management consult Itching -no rash or signs of anaphylaxis -Benadryl as needed Constipation -Discussed plan with RN -bowel regimen in place. -Possible enema if not improved DVT Apixaban (1) Chest pain Qualifiers: Chest pain type: unspecified Qualified Code(s): R07.9 - Chest pain, unspecified (2) Dyspnea Qualifiers: Dyspnea type: shortness of breath Qualified Code(s): R06.02 - Shortness of breath; R06.00 - Dyspnea, unspecified; R06.01 - Orthopnea
--- NOTE | 2017-12-24 09:21 | P.PN ---
Subjective Interval history: Follow-up visit- morbidly obese, HTN, HLD, DM, COPD, PPM/AICD, CHF. The patient reports not feeling well again today. She states her AICD alarms every morning at 7:55 AM. No correlating events on telemetry. She reports ongoing constipation in has not had a bowel movement in 19 days despite multiple laxatives at home and in the hospital. She denies any specific abdominal pains. Denies nausea/vomiting. The patient also reports ongoing shortness of breath, temporarily relieved by duonebs. She is requesting Mucomyst as this helped her in the ED. Discussed discharge planning, she wants to go to rehab prior to returning home. Physical Exam Vital signs: Vital Signs 12/23/17 11:46 12/23/17 13:02 12/23/17 15:44 Temperature 97.8 F 98.3 F Pulse Rate 79 68 77 Respiratory Rate 20 20 20 Blood Pressure 100/54 L 98/52 L Pulse Oximetry 96 94 L 12/23/17 19:48 12/23/17 20:00 12/23/17 23:28 Temperature 97.8 F 98.4 F Pulse Rate 77 78 80 Respiratory Rate 17 18 16 Blood Pressure 108/59 L 97/54 L Pulse Oximetry 96 96 96 12/24/17 02:58 12/24/17 04:00 12/24/17 07:44 Temperature 98.6 F Pulse Rate 72 83 84 Respiratory Rate 18 17 18 Blood Pressure 93/53 L Pulse Oximetry 95 97 12/24/17 08:00 12/24/17 08:26 Temperature 98.3 F Pulse Rate 83 84 Respiratory Rate 14 Blood Pressure 95/55 L Pulse Oximetry 95 Narrative: GENERAL: Well-nourished, well-developed morbidly obese middle aged female patient in [facility]. SKIN: Warm and dry. Left 4th and 5th toes with open blister. HEENT: Normocephalic. Atraumatic. Pupils equal and round. Mucous membranes pink and moist. NECK: Supple. Trachea midline. CARDIOVASCULAR: Regular rate and rhythm. No murmur appreciated. RESPIRATORY: No accessory muscle use. Clear to auscultation. Breath sounds equal bilaterally. GASTROINTESTINAL: Abdomen soft, non-tender, nondistended. Normoactive bowel sounds x4. MUSCULOSKELETAL: No obvious deformities. Extremities without clubbing, cyanosis , or edema. NEUROLOGICAL: Awake and alert. No obvious cranial nerve deficits. Motor grossly within normal limits. Moving all extremities spontaneously. Normal speech. PSYCHIATRIC: Slightly histrionic; insight and judgment normal. Results - Labs CBC & Chem 7: 12/21/17 02:29 12/22/17 07:22 Laboratory Results - last 24 hr 12/23/17 12/23/17 12/23/17 13:13 17:26 21:13 POC Glucose 213 H 214 H 259 H 12/24/17 08:05 POC Glucose 193 H Microbiology 12/21/17 12:45 Wound - Toe Gram Stain - Final 12/21/17 12:45 Wound - Toe Wound Culture - Final No growth in 72 hours (aerobically and anaerobically ) - Imaging Toe X-Ray 12/20/17 00:00 CONCLUSION: Focal soft tissue swelling involving the fourth toe. The underlying bony structures are grossly intact. Chest X-Ray 12/20/17 08:18 CONCLUSION: No focal or acute pulmonary infiltrates. Assessment and Plan - Assessment (1) Chest pain Code(s): R07.9 - Chest pain, unspecified Status: Acute (2) Dyspnea Code(s): R06.00 - Dyspnea, unspecified Status: Acute (3) Paced cardiac rhythm Status: Acute - Plan Patient is a 57-year-old morbidly obese patient with primary medical history of HTN, HLD, DM, hypothyroidism, COPD, CHF who initially came into the hospital for complaints of chest pain described as she thinks the pacemaker is not working well. Chest pain, rule out ACS PPM/ AICD -No further chest pain -Serial EKG and troponins negative -AICD interrogation done, functioning properly. -Consulted cardiology, for further recommendations, no further intervention needed -Outpatient f/up with Dr. Sanches HTN HLD CHF, not in exacerbation Paroxysmal atrial fibrillation, rate is controlled -Continue home medication Lasix, Entresto, apixaban, amlodipine -Monitor BP trend -Resume home potassium supplement Shortness of breath and dyspnea complaints -Sounds more upper respiratory and chest x-ray negative -Duo neb scheduled, guaifenesin -Monitor respiratory status, O2 nasal cannula as needed keep O2 sat greater than 90%. -Started Symbicort DM 2 Hemoglobin A1c 8.6 -Insulin sliding scale for now, states she takes Lantus at home -start patient on Levemir 10 units QHS and titrate. Left 4th and 5th toe blister -Xray Focal soft tissue swelling involving the fourth toe. The underlying bony structures are grossly intact. -Wound care consulted -Culture with no growth Morbidly obese, debilitated -States she has not walked for more than a year. 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 NIGHT AUDITOR visits. -Physical therapy eval and treat. -OT eval and treat -Possibly needs short-term SNF and long-term care -Case management consulted to assist with discharge planning Itching -no rash or signs of anaphylaxis -Benadryl as needed Constipation: patient claiming no BM in 19days -bowel regimen in place. -check abdominal xray -give fleet enema x1 and mag citrate x1 now -monitor for BM DVT Apixaban Discharge Planning: Difficult discharge. Patient with multiple medical complaints. She is requesting placement. Case management to assist with discharge planning. (1) Chest pain Qualifiers: Chest pain type: unspecified Qualified Code(s): R07.9 - Chest pain, unspecified (2) Dyspnea Qualifiers: Dyspnea type: shortness of breath Qualified Code(s): R06.02 - Shortness of breath; R06.00 - Dyspnea, unspecified; R06.01 - Orthopnea
[2017-12-24] MEDS: Potassium Chloride 25 MEQ Effervescent Tablet PO SCH (09:23)
[2017-12-24] MEDS: Insulin NovoLOG Aspart Correctional Sugar Inj SQ SCH ×4 (09:24→22:00)
[2017-12-24] MEDS: Gabapentin 300 MG Capsule PO SCH ×3 (09:27→18:40)
[2017-12-24] MEDS: Budesonide-Formoterol 160/4.5 MCG 6 GM Inhaler INH SCH ×2 (09:27→22:01)
[2017-12-24] MEDS ORDERED: Magnesium Citrate Liq 300 ML Bottle PO ONE (10:59)
[2017-12-24] MEDS ORDERED: Sod Phosphate/Sod Biphosphate (Adult) Enema 133 ML Bottle RECTAL ONE (10:59)
--- NOTE | 2017-12-24 13:41 | XR ---
EXAM DATE: 12/24/2017 1:37 PM EDT AGE/SEX: 57 years / Female INDICATIONS: Constipation. CLINICAL DATA: This is the patient's initial encounter. Patient reports that signs and symptoms have been present for 3 weeks and indicates a pain score of 7/10. MEDICAL/SURGICAL HISTORY: . Chronic obstructive pulmonary disease. Diabetes Appendectomy. Hys terectomy. COMPARISON: No prior exams available for comparison. FINDINGS: 4 supine images of the abdomen are limited by the patient's body habitus. Gas and stool seen scatter ed throughout a normal caliber colon reaching the level of the rectal vault. There is a focal area of moderate stool volume involving the hepatic flexure. No dilated loops of large or small bowel bowel observed. No gross organomegaly although this is limited in evaluation. Bony structures are unremarka ble with exception of an old right inferior rib fracture. Venous calcifications overlie the pelvis. CONCLUSION: Normal bowel gas pattern. Electronically signed by: Jensen Esteban MD 12/24/2017 1:39 PM EDT
--- NOTE | 2017-12-24 18:45 | P.CONPOD ---
History of Present Illness Service: Podiatry Consult date: 12/24/17 Reason for Consult: Left 4th/5th toes with blisters Primary Care Provider: Radha Hernandez Family Provider: Radha Hernandez Chief Complaint: Chest pain History of Present Illness: Patient states she is diabetic and A1c is around 8.5. She says she went to sleep one night recently and woke up to find blisters on left 4th/5th toes. Denies trauma. Denies wearing ill fitting shoes or any type of friction to the area. She states she has neuropathy. Review of Systems All other systems reviewed negative except as stated in [facility] - History History Provided By: Patient - Medical History Medical History: Medical History (Last Reviewed 12/24/17 @ 08:58 by Ayaan Lanza) CHF (congestive heart failure) COPD (chronic obstructive pulmonary disease) Diabetes Hyperlipemia Hypertension Hypothyroid - Surgical History Surgical History: Surgical History (Last Reviewed 12/24/17 @ 08:58 by Ayaan Lanza) Pacemaker (Acute) - Family History Family History: Family History (Last Reviewed 12/21/17 @ 11:12 by Philomena Stanford) Father Heart disease - Tobacco History Second Hand Smoke Exposure: No Smoking Status: Never smoker Tobacco Type: Cigarettes - Alcohol History How Often Do You Have a Drink Containing Alcohol: Monthly or less - Substance Use History Substance History: No History of Abuse - Travel History Recent Travel in the [place] Within the Last 8 Weeks: No Recent Travel Out of the Country Within the Last 8 Weeks: No - Immunization History Tetanus Immunization: <5 Years Hx Influenza Vaccine This Season: Yes Medications and Allergies Active Medications: Active Medications Acetaminophen (Tylenol) 650 mg PO Q4H PRN PRN Reason: Headache, fever, pain 1-5 Last Admin: 12/22/17 00:24 Dose: 650 mg Hydrocodone Bitart/Acetaminophen (Hycet 325/7.5 Mg Liq) 10 ml NG/OG Q4H PRN PRN Reason: PAIN SCALE 7 TO 10 SEVERE Last Admin: 12/22/17 05:33 Dose: 10 ml Al Hydroxide/Mg Hydroxide (Milk Of Magnesia Liq) 30 ml PO Q12H PRN PRN Reason: Mild Constipation Last Admin: 12/22/17 09:23 Dose: 30 ml Albuterol (Duoneb Neb (Prn)) 1 ampul NEB Q2HR NEB PRN PRN Reason: SOB/ Dyspnea Last Admin: 12/24/17 12:20 Dose: 1 ampul Albuterol (Duoneb Neb ([facility])) 1 ampul NEB Q6HR WHILE AWAKE NEB [facility] Last Admin: 12/24/17 14:14 Dose: 1 ampul Alprazolam (Xanax) 0.5 mg PO TID PRN PRN Reason: Anxiety Amlodipine Besylate (Norvasc) 5 mg PO DAILY [facility] Last Admin: 12/22/17 09:19 Dose: 5 mg Apixaban (Eliquis) 5 mg PO BID [facility] Last Admin: 12/24/17 09:25 Dose: 5 mg Bisacodyl (Dulcolax Supp) 10 mg RECTAL DAILY PRN PRN Reason: SEVERE CONSITIPATION Budesonide/Formoterol Fumarate (Symbicort 160/4.5 Mcg Inh) 2 puff INH BID [facility] Last Admin: 12/24/17 09:27 Dose: 2 puff Dextrose (D50w Vial) 50 ml IV.PUSH UNSCH PRN PRN Reason: PER HYPOGLYCEMIA PROTOCOL Diphenhydramine HCl (Benadryl Liq) 12.5 mg PO Q6H PRN PRN Reason: itching Furosemide (Lasix) 80 mg PO DAILY [facility] Last Admin: 12/22/17 09:22 Dose: 80 mg Gabapentin (Neurontin) 600 mg PO TID [facility] Last Admin: 12/24/17 13:51 Dose: 600 mg Glucagon (Glucagon Inj) 1 mg OTHER UNSCH PRN PRN Reason: for Hypoglycemia Protocol Guaifenesin (Robitussin Liq) 20 mg PO Q6H PRN PRN Reason: CHEST CONGESTION Insulin Aspart (Novolog Insulin Correctional Sugar Inj) 0 unit SQ ACHS [facility]; Protocol Last Admin: 12/24/17 13:51 Dose: 5 unit Insulin Detemir (Levemir Inj) 10 unit SQ [facility] Lactulose (Lactulose Liq) 30 ml PO DAILY PRN PRN Reason: SEVERE CONSITIPATION Last Admin: 12/23/17 21:52 Dose: 30 ml Ondansetron HCl (Zofran Inj) 4 mg IV.PUSH Q6H PRN PRN Reason: NAUSEA Last Admin: 12/22/17 05:34 Dose: 4 mg Pantoprazole Sodium (Protonix) 40 mg PO DAILY [facility] Last Admin: 12/24/17 09:27 Dose: 40 mg Linaclotide [Linzess (] 72 Mcg) 72 each PO DAILY [facility] Potassium Bicarb/Potassium Chloride (K-Lyte Cl Eff) 25 meq PO DAILY [facility] Last Admin: 12/24/17 09:23 Dose: 25 meq Sacubitril/Valsartan (Entresto 49 Mg/51 Mg) 1 tab PO BID [facility] Last Admin: 12/23/17 00:31 Dose: Not Given Sennosides (Senokot) 17.2 mg PO Q12H PRN PRN Reason: Moderate Constipation Sodium Chloride (Ns Flush) 2 ml IV.FLUSH UNSCH PRN PRN Reason: FLUSH AFTER USING IV ACCESS Allergies Allergy/AdvReac Type Severity Reaction Status Date / Time amoxicillin Allergy Severe Diarrhea Unverified 12/20/17 08:09 clavulanic acid Allergy Severe Diarrhea Unverified 12/20/17 08:09 codeine Allergy Severe ITCH Unverified 12/20/17 08:09 sodium hypochlorite solution Allergy Severe SOB Unverified 12/20/17 08:09 *MDRO Multi-Drug Resistant AdvReac Unknown Swelling Uncoded 12/20/17 08:09 Organism Home Medications Medication Instructions Recorded Confirmed Type albuterol sulfate [Ventolin HFA] 1 puff INHALATION Q4-6H PRN 12/20/17 12/20/17 History alprazolam [Xanax] 0.5 mg PO TID PRN 12/20/17 12/20/17 History amlodipine 5 mg PO DAILY 12/20/17 12/20/17 History apixaban [Eliquis] 5 mg PO BID 12/20/17 12/20/17 History furosemide [Lasix] 80 mg PO DAILY 12/20/17 12/20/17 History gabapentin 600 mg PO TID 12/20/17 12/20/17 History hydrocortisone 1 applic TOPICAL BID 12/20/17 12/20/17 History linaclotide [Linzess] 72 mcg PO DAILY 12/20/17 12/20/17 History pantoprazole [Protonix] 40 mg PO DAILY 12/20/17 12/20/17 History potassium chloride 10 meq PO BID 12/20/17 12/20/17 History promethazine 12.5 mg PO Q6H PRN 12/20/17 12/20/17 History sacubitril-valsartan [Entresto] 1 tab PO BID 12/20/17 12/20/17 History sulfamethoxazole-trimethoprim 1 tab PO BID 12/20/17 12/20/17 History [Bactrim DS] Physical Exam Vital signs: Vital Signs 12/23/17 19:48 12/23/17 20:00 12/23/17 23:28 Temperature 97.8 F 98.4 F Pulse Rate 77 78 80 Respiratory Rate 17 18 16 Blood Pressure 108/59 L 97/54 L Pulse Oximetry 96 96 96 12/24/17 02:58 12/24/17 04:00 12/24/17 07:44 Temperature 98.6 F Pulse Rate 72 83 84 Respiratory Rate 18 17 18 Blood Pressure 93/53 L Pulse Oximetry 95 97 12/24/17 08:00 12/24/17 08:26 12/24/17 11:51 Temperature 98.3 F 98.3 F Pulse Rate 83 84 82 Respiratory Rate 14 14 Blood Pressure 95/55 L 98/50 L Pulse Oximetry 95 96 12/24/17 12:10 12/24/17 12:21 12/24/17 14:15 Temperature Pulse Rate 88 80 84 Respiratory Rate 18 18 Blood Pressure Pulse Oximetry 12/24/17 15:52 12/24/17 16:24 Temperature 98.3 F Pulse Rate 87 87 Respiratory Rate 16 Blood Pressure 90/52 L Pulse Oximetry Intake & Output 12/23/17 12/24/17 12/24/17 18:59 06:59 18:59 Other: Date of Last Bowel Movement 12/24/17 Narrative: Diminished, but palpable pedal pulses. Sensation diminished to light touch. Toenails elongated. Left 4th and 5th digits with partially deroofed bullae to entire digits. Upon removal of tissue, there is underlying viable tissue to both toes with no necrosis and the fluid appears to be clear and not purulent material. No foul odor. No gangrenous changes noted - Constitutional no acute distress Results - Labs CBC & Chem 7: 12/21/17 02:29 12/22/17 07:22 Laboratory Results - last 24 hr 12/23/17 12/24/17 12/24/17 21:13 08:05 12:12 POC Glucose 259 H 193 H 252 H 12/24/17 18:28 POC Glucose 227 H Microbiology 12/21/17 12:45 Wound - Toe Gram Stain - Final 12/21/17 12:45 Wound - Toe Wound Culture - Final No growth in 72 hours (aerobically and anaerobically ) - Imaging Impressions Abdomen X-Ray 12/24/17 00:00 CONCLUSION: Normal bowel gas pattern. Assessment and Plan - Assessment (1) Bullous eruption, localized Code(s): L13.9 - Bullous disorder, unspecified Status: Acute Plan: No sign of infection noted. Feet examined. Recommend to continue betadine wet to dry dressing to the toes x 7 days. No further treatment planned at this time. Thank you for consultation. Podiatry signing off
--- NOTE | 2017-12-24 20:18 | P.PNWCN ---
Wound Care Nurse Consult Description: Received consult from Radha Coleman for L 4th and 5th toe wounds Communicated with: ADRIANO LAMB g pod and Devi ELISE Recommendation: Please consult podiatry for L 4th toe wound. Please continue with betadine and dry dressings as ordered. Wound/Pressure Injury - Wound Left Toe - 4th Digit Wound Type: Traumatic Wound (wound presents as partially unroofed purple colored blister.) Is This a Chronic Wound: No Requested from Provider a Wound Care Consult: Yes (Wound care saw patient today) Length: 3 (cm) Width: 4 (L 4th toe cumferential ~4cm) Depth: 0 Wound Bed Appearance: [place] Wound Bed Appearance: Wound to L 4th toe presents with a partially in unroofed purple colored blister , pink tissue in visible where blister is unroofed. Entire L 4th toe is boggy and dry without drainage. Surrounding Tissue Temperature: Warm Drainage Amount: None Drainage Odor: No Odor Dressing Status: Changed Cleansing Solution: betadine Primary Dressing: Gauze Roll/Wrap Wound Dressing Change Date: 12/24/17 Left Toe - 5th Digit Wound Assessment: Ongoing Wound Type: Blister Wound Bed Appearance: Blisters - Intact Surrounding Tissue Temperature: Warm Drainage Amount: None Dressing Status: Changed Cleansing Solution: betadine Primary Dressing: Gauze Roll/Wrap - Additional Information Patient seen in G pod for wound management consult of L 4th and fifth toes. Patient is laying in bed upon newspaper writer's arrival. Patient is a diabetic, morbidly obese, female. Per patient she checked her bilateral feet the night before when at home and the next morning she noticed blisters to the L 4th and 5th toes and R chest. Blister to Chest has since opened, deflated and is now noted with intact scab. L 5th toe blister is small, dry and intact (roofed). L 4th toe blister presents as partially unroofed with exposed shallow, pink partial thickness skin loss.Roofed portion of blister is purple. Entire L 4th toe is boggy. Povidone-iodine was applied to L 4th and 5th toes and wrapped loosed with inch rolled gauze. Per patient's request rolled gauze was not taped in place.Recommendation are noted above. Incision - Patient Status Premedicated for Pain Prior to Dressing Change: No
[2017-12-24] MEDS ORDERED: Insulin Detemir Inj 1,000 UNIT/10 ML Vial SQ SCH (21:00)
[2017-12-25] MEDS: Gabapentin 300 MG Capsule PO SCH ×3 (09:14→17:57)
[2017-12-25] MEDS: Potassium Chloride 25 MEQ Effervescent Tablet PO SCH (09:15)
[2017-12-25] MEDS: Budesonide-Formoterol 160/4.5 MCG 6 GM Inhaler INH SCH ×2 (09:16→23:05)
[2017-12-25] MEDS: Insulin NovoLOG Aspart Correctional Sugar Inj SQ SCH ×4 (09:38→21:46)
--- NOTE | 2017-12-25 09:54 | P.PN ---
Subjective Interval history: Follow-up visit for morbid obesity, dyspnea, constipation, left fourth/fifth toe wounds, unsafe discharge. Patient reports her breathing continues to remain "tight". She reports shortness of breath, worse with minimal exertion. Denies any chest pain overnight. She states she did have a bowel movement after the enema yesterday. She is tolerating oral intake. Denies any nausea or vomiting. She does not feel safe going home and continues to request rehab placement prior to returning home. She is still adamant about not going anywhere for long-term care. She has no other medical complaints at this time. Physical Exam Vital signs: Vital Signs 12/24/17 11:51 12/24/17 12:10 12/24/17 12:21 Temperature 98.3 F Pulse Rate 82 88 80 Respiratory Rate 14 18 Blood Pressure 98/50 L Pulse Oximetry 96 12/24/17 14:15 12/24/17 15:52 12/24/17 16:24 Temperature 98.3 F Pulse Rate 84 87 87 Respiratory Rate 18 16 Blood Pressure 90/52 L Pulse Oximetry 12/24/17 19:46 12/24/17 20:00 12/25/17 00:00 Temperature 98.5 F 98.1 F Pulse Rate 86 81 88 Respiratory Rate 16 15 15 Blood Pressure 101/64 108/58 L Pulse Oximetry 98 99 93 L 12/25/17 03:24 12/25/17 08:00 Temperature 98.4 F Pulse Rate 83 Respiratory Rate 17 18 Blood Pressure 101/65 Pulse Oximetry 95 Intake & Output 12/24/17 12/25/17 12/25/17 18:59 06:59 18:59 Output Total 400 / 400 Balance -400 / -400 Output: Urine 400 / 400 Other: Date of Last Bowel Movement 12/24/17 Narrative: GENERAL: Well-nourished, well-developed morbidly obese middle aged female patient in [facility]. SKIN: Warm and dry. Left 4th and 5th toes with open blister/wound. HEENT: Normocephalic. Atraumatic. Pupils equal and round. Mucous membranes pink and moist. NECK: Supple. Trachea midline. CARDIOVASCULAR: Regular rate and rhythm. No murmur appreciated. RESPIRATORY: No accessory muscle use. Clear to auscultation. Breath sounds equal bilaterally. GASTROINTESTINAL: Abdomen soft, non-tender, nondistended. Normoactive bowel sounds x4. MUSCULOSKELETAL: No obvious deformities. Extremities without clubbing, cyanosis , or edema. NEUROLOGICAL: Awake and alert. No obvious cranial nerve deficits. Motor grossly within normal limits. Moving all extremities spontaneously. Normal speech. PSYCHIATRIC: Slightly histrionic; insight and judgment normal. Results - Labs CBC & Chem 7: 12/21/17 02:29 12/22/17 07:22 Laboratory Results - last 24 hr 12/24/17 12/24/17 12/24/17 12:12 18:28 21:48 POC Glucose 252 H 227 H 312 H 12/25/17 09:02 POC Glucose 220 H Microbiology 12/21/17 12:45 Wound - Toe Gram Stain - Final 12/21/17 12:45 Wound - Toe Wound Culture - Final No growth in 72 hours (aerobically and anaerobically ) - Imaging Impressions Abdomen X-Ray 12/24/17 00:00 CONCLUSION: Normal bowel gas pattern. Assessment and Plan - Assessment (1) Chest pain Code(s): R07.9 - Chest pain, unspecified Status: Acute (2) Dyspnea Code(s): R06.00 - Dyspnea, unspecified Status: Acute (3) Paced cardiac rhythm Status: Acute - Plan Patient is a 57-year-old morbidly obese patient with primary medical history of HTN, HLD, DM, hypothyroidism, COPD, CHF who initially came into the hospital for complaints of chest pain described as she thinks the pacemaker is not working well. Chest pain, rule out ACS PPM/ AICD -No further chest pain -Serial EKG and troponins negative -AICD interrogation done, functioning properly. -Consulted cardiology, for further recommendations, no further intervention needed -Outpatient f/up with Dr. Sanches HTN HLD CHF, not in exacerbation Paroxysmal atrial fibrillation, rate is controlled -Continue home medication Lasix, Entresto, apixaban, amlodipine -Monitor BP trend -Resume home potassium supplement Shortness of breath and dyspnea complaints -Sounds more upper respiratory and chest x-ray negative -Duo neb scheduled, guaifenesin -Monitor respiratory status, O2 nasal cannula as needed keep O2 sat greater than 90%. -Started Symbicort -incentive spirometer DM 2 Hemoglobin A1c 8.6 -Insulin sliding scale for now, states she takes Lantus at home -start patient on Levemir 10 units QHS and titrate. -BG still uncontrolled, increase to 12u hs on 12/25 Left 4th and 5th toe blister -Xray Focal soft tissue swelling involving the fourth toe. The underlying bony structures are grossly intact. -Wound care consulted -Culture with no growth -Consult podiatry, recommended to continue betadine with wet to dry dressing x7days Morbidly obese, debilitated -States she has not walked for more than a year. 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 -Physical therapy eval and treat. -OT eval and treat -Possibly needs short-term SNF and long-term care; however difficult placing into rehab due to insurance barriers, and patient declining any half-way care -Case management consulted to assist with discharge planning Constipation: patient claiming no BM in 19days -bowel regimen in place. -checked abdominal xray which was unremarkable -give fleet enema x1 and mag citrate x1, had BM on 12/24 -monitor for constipation -give Miralax daily DVT Apixaban Discharge Planning: Unsafe discharge to home however difficult placement. She is requesting rehab placement, declining any half-way facility arrangements. Case management to assist with discharge planning. (1) Chest pain Qualifiers: Chest pain type: unspecified Qualified Code(s): R07.9 - Chest pain, unspecified (2) Dyspnea Qualifiers: Dyspnea type: shortness of breath Qualified Code(s): R06.02 - Shortness of breath; R06.00 - Dyspnea, unspecified; R06.01 - Orthopnea
[2017-12-25] MEDS: Acetaminophen 325 MG Tablet PO PRN (18:07)
[2017-12-25] MEDS ORDERED: Insulin Detemir Inj 1,000 UNIT/10 ML Vial SQ ONE (18:50)
[2017-12-25] MEDS: ALPRAZolam 0.5 MG Tablet PO PRN (19:59)
[2017-12-26] MEDS: Acetaminophen 325 MG Tablet PO PRN ×4 (04:19→23:02)
[2017-12-26] MEDS: Gabapentin 300 MG Capsule PO SCH ×3 (08:49→18:26)
[2017-12-26] MEDS: Insulin NovoLOG Aspart Correctional Sugar Inj SQ SCH ×4 (08:50→20:31)
[2017-12-26] MEDS: Budesonide-Formoterol 160/4.5 MCG 6 GM Inhaler INH SCH ×2 (08:51→20:32)
[2017-12-26] MEDS: Polyethylene Glycol 3350 17 GM Packet PO SCH (08:51)
[2017-12-26] MEDS: Potassium Chloride 25 MEQ Effervescent Tablet PO SCH (08:51)
--- NOTE | 2017-12-26 15:23 | P.PN ---
Subjective Interval history: awake and alert-feels bed uncomfortable requesting for a bariatric bed- d/w charge nurse- they ordered one- will ff up states has home 02 and got a hospital bed at home denies any chest pain Physical Exam Vital signs: Vital Signs 12/25/17 16:00 12/25/17 20:00 12/25/17 20:59 Temperature 98.8 F 98.2 F Pulse Rate 82 82 79 Respiratory Rate 18 18 16 Blood Pressure 130/74 106/65 Pulse Oximetry 94 L 93 L 94 L 12/25/17 23:59 12/26/17 00:00 12/26/17 02:36 Temperature 97.8 F Pulse Rate 79 79 75 Respiratory Rate 20 18 17 Blood Pressure 108/64 Pulse Oximetry 91 L 96 12/26/17 04:00 12/26/17 04:32 12/26/17 08:00 Temperature 98.5 F 98.3 F Pulse Rate 77 77 98 H Respiratory Rate 18 19 20 Blood Pressure 105/63 125/60 Pulse Oximetry 95 96 95 12/26/17 08:43 12/26/17 12:00 Temperature Pulse Rate 73 Respiratory Rate Blood Pressure Pulse Oximetry 95 Intake & Output 12/25/17 12/26/17 12/26/17 18:59 06:59 18:59 Intake Total 120 / 120 Balance 120 / 120 Weight 166.8 kg 166.8 kg Intake: Oral 120 / 120 Other: # Voids 0 3 Date of Last Bowel Movement 12/24/17 12/24/17 12/24/17 # Bowel Movements 0 Weight On Admission 166.8 kg Narrative: awake and alert, oriented x 3 anicteric no rales, decreased breath sounds, no wheezes regular rhythm abdomen- flabby soft, nontender extremiteis- trace pretibial edema moves all extremities spontaenously - Urinary Catheter Management Indwelling Urethral Catheter Cath placed during this visit: yes Reason for continuing: Acute urinary retention Insertion date: 12/28/17 Insertion time: 05:00 Results - Labs CBC & Chem 7: 12/27/17 21:41 12/27/17 21:41 Laboratory Results - last 24 hr 12/25/17 12/25/17 12/26/17 17:50 20:02 07:48 POC Glucose 198 H 271 H 198 H 12/26/17 11:53 POC Glucose 232 H Assessment and Plan - Assessment (1) Chest pain Code(s): R07.9 - Chest pain, unspecified Status: Acute (2) Dyspnea Code(s): R06.00 - Dyspnea, unspecified Status: Acute (3) Paced cardiac rhythm Status: Acute - Plan Patient is a 57-year-old morbidly obese patient with primary medical history of HTN, HLD, DM, hypothyroidism, COPD, CHF who initially came into the hospital for complaints of chest pain described as she thinks the pacemaker is not working well. Chest pain, rule out ACS PPM/ AICD -No further chest pain -Serial EKG and troponins negative -AICD interrogation done, functioning properly. -Consulted cardiology, for further recommendations, no further intervention needed -Outpatient f/up with Dr. 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 -Started Symbicort -incentive spirometer DM 2 Hemoglobin A1c 8.6 -Insulin sliding scale for now, states she takes Lantus at home -start patient on Levemir 10 units QHS and titrate. -BG still uncontrolled, increase to 12u hs on 12/25 Left 4th and 5th toe blister -Xray Focal soft tissue swelling involving the fourth toe. The underlying bony structures are grossly intact. -Wound care consulted -Culture with no growth -Consulted podiatry, recommended to continue betadine with wet to dry dressing x7days Morbidly obese, debilitated -States she has not walked for more than a year. 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 [facility] visits. -Physical therapy eval and treat. -OT eval and treat -Possibly needs short-term SNF and long-term care; however difficult placing into rehab due to insurance barriers, and patient declining any group home care -Case management consulted to assist with discharge planning Constipation: patient claiming no BM in 19days -bowel regimen in place. -checked abdominal xray which was unremarkable -give fleet enema x1 and mag citrate x1, had BM on 12/24 -monitor for constipation - Miralax daily d/w CM- very motivated with rehab working on it DVT Apixaban Discharge Planning: Unsafe discharge to home however difficult placement. 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 Case management to assist with discharge planning. (1) Chest pain Qualifiers: Chest pain type: unspecified Qualified Code(s): R07.9 - Chest pain, unspecified (2) Dyspnea Qualifiers: Dyspnea type: shortness of breath Qualified Code(s): R06.02 - Shortness of breath; R06.00 - Dyspnea, unspecified; R06.01 - Orthopnea
[2017-12-26] MEDS ORDERED: Insulin Detemir Inj 1,000 UNIT/10 ML Vial SQ SCH (21:00)
[2017-12-27] MEDS: Acetaminophen 325 MG Tablet PO PRN (06:28)
[2017-12-27] MEDS: Gabapentin 300 MG Capsule PO SCH ×3 (09:47→17:08)
[2017-12-27] MEDS: Potassium Chloride 25 MEQ Effervescent Tablet PO SCH (09:47)
[2017-12-27] MEDS: Insulin NovoLOG Aspart Correctional Sugar Inj SQ SCH ×4 (09:48→23:40)
[2017-12-27] MEDS: Polyethylene Glycol 3350 17 GM Packet PO SCH (09:48)
[2017-12-27] MEDS: ALPRAZolam 0.5 MG Tablet PO PRN (10:25)
[2017-12-27] MEDS: Budesonide-Formoterol 160/4.5 MCG 6 GM Inhaler INH SCH ×2 (11:17→21:52)
--- NOTE | 2017-12-27 14:04 | P.PN ---
Subjective Interval history: complains of burping a lot since last evening feels bloatingstates having stools + flatus at bedside - wintess several times burping then vomited coffee group emesis just now at bedside Physical Exam Vital signs: Vital Signs 12/26/17 15:42 12/26/17 16:00 12/26/17 20:00 Temperature 97.7 F 98.2 F Pulse Rate 73 78 69 Respiratory Rate 16 20 18 Blood Pressure 93/55 L 95/55 L Pulse Oximetry 96 96 12/26/17 23:32 12/27/17 00:00 12/27/17 04:00 Temperature 98.8 F 98.4 F Pulse Rate 75 68 Respiratory Rate 20 20 18 Blood Pressure 137/54 L 108/54 L Pulse Oximetry 94 L 94 L 12/27/17 07:53 12/27/17 08:00 12/27/17 09:17 Temperature 97.8 F Pulse Rate 68 72 70 Respiratory Rate 17 20 Blood Pressure 91/54 L Pulse Oximetry 98 97 12/27/17 11:14 12/27/17 12:00 Temperature 97.2 F L Pulse Rate 74 67 Respiratory Rate 17 Blood Pressure 88/52 L Pulse Oximetry 92 L Intake & Output 12/26/17 12/27/17 12/27/17 18:59 06:59 18:59 Intake Total 720 / 720 420 / 420 Output Total 125 / 125 Balance 720 / 720 295 / 295 Weight 166.8 kg Intake: Oral 720 / 720 420 / 420 Output: Urine 125 / 125 Other: # Voids 1 1 Date of Last Bowel Movement 12/24/17 12/24/17 12/24/17 Narrative: awake and alert, oriented x 3 anicteric no rales, decreased breath sounds, no wheezes regular rhythm abdomen- flabby soft, nontender, slightyly distended, tympanitic on exam extremiteis- trace pretibial edema moves all extremities spontaenously - Urinary Catheter Management Indwelling Urethral Catheter Cath placed during this visit: yes Reason for continuing: Acute urinary retention Insertion date: 12/28/17 Insertion time: 05:00 Results - Labs CBC & Chem 7: 12/29/17 03:45 12/29/17 03:45 Laboratory Results - last 24 hr 12/26/17 12/26/17 12/27/17 16:26 20:24 08:51 POC Glucose 207 H 209 H 216 H 12/27/17 12:05 POC Glucose 261 H Assessment and Plan - Assessment (1) Chest pain Code(s): R07.9 - Chest pain, unspecified Status: Acute (2) Dyspnea Code(s): R06.00 - Dyspnea, unspecified Status: Acute (3) Paced cardiac rhythm Status: Acute - Plan Patient is a 57-year-old morbidly obese patient with primary medical history of HTN, HLD, DM, hypothyroidism, COPD, CHF who initially came into the hospital for complaints of chest pain described as she thinks the pacemaker is not working well. UGIB- coffee ground emesis 12/27 right now at bedside - patient also complains sensation fo food stuck, abdomen distended but soft - NPO - GI consult - for EGD/colonosocpy - on po once daily PI- change to IV PPI q 12 - get KUB now - hold eliquis - CBC, BMP now - type and x match 2 units RBC standby Constipation: patient claiming no BM in 19days on admission- state some stools coming out - but not sure -bowel regimen in place. -checked abdominal xray 12/24- lots of stools. - get KUB now -given fleet enema x1 and mag citrate x1, had BM on 12/24 - Miralax daily -consider decompressive colonoscopy since will likely need EGD Chest pain, rule out ACS PPM/ AICD -No further chest pain -Serial EKG and troponins negative -AICD interrogation done, functioning properly. -Consulted cardiology, for further recommendations, no further intervention needed -Outpatient f/up with Dr. Verónica Clement elialex for now HTN HLD CHF, not in exacerbation Paroxysmal atrial fibrillation, rate is controlled -Continue home medication Lasix, Entresto, amlodipine -Monitor BP trend -Resume home potassium supplement -Hold Eliquis Shortness of breath and dyspnea complaints- likley baseline with body habitus Likely with underlying Restrictive lung disease- 02 dependent 4 LNC History of right lower lobe lobectomy many years ago "cancer" but not -Duo neb scheduled, guaifenesin -Monitor respiratory status, O2 nasal cannula as needed keep O2 sat greater than 90%. -Started Symbicort -incentive spirometer DM 2 Hemoglobin A1c 8.6 -Insulin sliding scale for now, states she takes Lantus at home -start patient on Levemir 10 units QHS and titrate. -BG still uncontrolled, increase to 12u hs on 12/25 Left 4th and 5th toe blister -Xray Focal soft tissue swelling involving the fourth toe. The underlying bony structures are grossly intact. -Wound care consulted -Culture with no growth -Consulted podiatry, recommended to continue betadine with wet to dry dressing x7days Morbidly obese, debilitated -States she has not walked for more than a year. 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 -Physical therapy eval and treat. -OT eval and treat -Possibly needs short-term SNF and long-term care; however difficult placing into rehab due to insurance barriers, and patient declining any bed bug exterminator care -Case management consulted to assist with discharge planning MARÍA ELENA- labs back- likely from GIB Increase NS to 100 cc/hr DVT Apixaban- DC due to acute GIB Discharge Planning: Unsafe discharge to home however difficult placement. She is requesting rehab placement, declining any bed bug exterminator facility arrangements. Case management to assist with discharge planning. (1) Chest pain Qualifiers: Chest pain type: unspecified Qualified Code(s): R07.9 - Chest pain, unspecified (2) Dyspnea Qualifiers: Dyspnea type: shortness of breath Qualified Code(s): R06.02 - Shortness of breath; R06.00 - Dyspnea, unspecified; R06.01 - Orthopnea
--- NOTE | 2017-12-27 14:49 | P.CONGI ---
History of Present Illness Consult date: 12/27/17 Consult reason: Abdominal pain/distention/vomiting Chief complaint: Chest pain,dyspnea,Hypokalemia, morbid History of Present Illness: This is a 57 yo morbidly obese female with significant medical history including HTN, DM, hypothyroidism, COPD, CHF who presented to the ER a week ago with complaints of chest pain, she has undergone work up by cardiology and pacemaker interrogation and has been advised to follow up with cardiology outpatient. Our service has been consulted to evaluate pt for reports of coffee ground emesis. Pt reports she has been burping all day, associated abdominal distention with nausea and multiple episodes of emesis today. She points to the emesis on her gown which appears to be more brown in color. Pt can not remember the last time she had a real BM, states she has had enemas, stool softeners, and laxatives since admission and still has not had "much stool". Does report passing flatus. Does not think she has ever had EGD or colonoscopy in the past. Only previous abdominal surgery was a section. Pt denies ETOH, smoking, illicit drug use and use of NSAIDs. <Maday Ratliff - Last Filed: 12/27/17 16:23> Review of Systems Gastrointestinal: Reports abdominal pain, Reports bloating, Reports constipation , Reports nausea, Reports vomiting <Maday Ratliff - Last Filed: 12/27/17 16:23> [facility] - History History Provided By: Patient - Medical History Medical History: Medical History (Last Reviewed 12/26/17 @ 09:15 by Maral Farfan) CHF (congestive heart failure) COPD (chronic obstructive pulmonary disease) Diabetes Hyperlipemia Hypertension Hypothyroid - Surgical History Surgical History: Surgical History (Last Reviewed 12/26/17 @ 09:15 by Maral Farfan) Pacemaker (Acute) - Family History Family History: Family History (Last Reviewed 12/26/17 @ 09:15 by Maral Farfan) Father Heart disease - Tobacco History Second Hand Smoke Exposure: No Smoking Status: Never smoker Tobacco Type: Cigarettes - Alcohol History How Often Do You Have a Drink Containing Alcohol: Monthly or less - Substance Use History Substance History: No History of Abuse - Travel History Recent Travel in the [place] Within the Last 8 Weeks: No Recent Travel Out of the Country Within the Last 8 Weeks: No - Immunization History Tetanus Immunization: <5 Years Hx Influenza Vaccine This Season: Yes <Maday Ratliff - Last Filed: 12/27/17 16:23> - Medical History Medical History: Medical History (Last Reviewed 12/26/17 @ 09:15 by Maral Farfan) CHF (congestive heart failure) COPD (chronic obstructive pulmonary disease) Diabetes Hyperlipemia Hypertension Hypothyroid - Surgical History Surgical History: Surgical History (Last Reviewed 12/26/17 @ 09:15 by Maral Farfan) Pacemaker (Acute) - Family History Family History: Family History (Last Reviewed 12/26/17 @ 09:15 by Maral Farfan) Father Heart disease <NishantRachael madrigal - Last Filed: 12/27/17 17:08> Medications and Allergies Active Medications: Active Medications Acetaminophen (Tylenol) 650 mg PO Q4H PRN PRN Reason: Headache, fever, pain 1-5 Last Admin: 12/27/17 06:28 Dose: 650 mg Hydrocodone Bitart/Acetaminophen (Hycet 325/7.5 Mg Liq) 10 ml NG/OG Q4H PRN PRN Reason: PAIN SCALE 7 TO 10 SEVERE Last Admin: 12/22/17 05:33 Dose: 10 ml Al Hydroxide/Mg Hydroxide (Milk Of Magnesia Liq) 30 ml PO Q12H PRN PRN Reason: Mild Constipation Last Admin: 12/22/17 09:23 Dose: 30 ml Albuterol (Duoneb Neb (Prn)) 1 ampul NEB Q2HR NEB PRN PRN Reason: SOB/ Dyspnea Last Admin: 12/27/17 09:14 Dose: 1 ampul Alprazolam (Xanax) 0.5 mg PO TID PRN PRN Reason: Anxiety Last Admin: 12/27/17 10:25 Dose: 0.5 mg Amlodipine Besylate (Norvasc) 5 mg PO DAILY ERNESTINA Last Admin: 12/22/17 09:19 Dose: 5 mg Bisacodyl (Dulcolax Supp) 10 mg RECTAL DAILY PRN PRN Reason: SEVERE CONSITIPATION Budesonide/Formoterol Fumarate (Symbicort 160/4.5 Mcg Inh) 2 puff INH BID ERNESTINA Last Admin: 12/27/17 11:17 Dose: 2 puff Dextrose (D50w Vial) 50 ml IV.PUSH UNSCH PRN PRN Reason: PER HYPOGLYCEMIA PROTOCOL Diphenhydramine HCl (Benadryl Liq) 12.5 mg PO Q6H PRN PRN Reason: itching Furosemide (Lasix) 80 mg PO DAILY [facility] Last Admin: 12/22/17 09:22 Dose: 80 mg Gabapentin (Neurontin) 600 mg PO TID [facility] Last Admin: 12/27/17 12:22 Dose: 600 mg Glucagon (Glucagon Inj) 1 mg OTHER UNSCH PRN PRN Reason: for Hypoglycemia Protocol Guaifenesin (Robitussin Liq) 20 mg PO Q6H PRN PRN Reason: CHEST CONGESTION Insulin Aspart (Novolog Insulin Correctional Sugar Inj) 0 unit SQ ACHS [facility]; Protocol Last Admin: 12/27/17 12:22 Dose: 5 unit Insulin Detemir (Levemir Inj) 12 unit SQ HS [facility] Last Admin: 12/26/17 20:30 Dose: 12 unit Lactulose (Lactulose Liq) 30 ml PO DAILY PRN PRN Reason: SEVERE CONSITIPATION Last Admin: 12/23/17 21:52 Dose: 30 ml Ondansetron HCl (Zofran Inj) 4 mg IV.PUSH Q6H PRN PRN Reason: NAUSEA Last Admin: 12/27/17 13:04 Dose: 4 mg Pantoprazole Sodium (Protonix) 40 mg PO DAILY [facility] Last Admin: 12/27/17 09:47 Dose: 40 mg Linaclotide [Linzess (] 72 Mcg) 72 each PO DAILY [facility] Polyethylene Glycol (Miralax) 17 gm PO DAILY [facility] Last Admin: 12/27/17 09:48 Dose: 17 gm Potassium Bicarb/Potassium Chloride (K-Lyte Cl Eff) 25 meq PO DAILY [facility] Last Admin: 12/27/17 09:47 Dose: 25 meq Sacubitril/Valsartan (Entresto 49 Mg/51 Mg) 1 tab PO BID [facility] Last Admin: 12/23/17 00:31 Dose: Not Given Sennosides (Senokot) 17.2 mg PO Q12H PRN PRN Reason: Moderate Constipation Sodium Chloride (Ns Flush) 2 ml IV.FLUSH UNSCH PRN PRN Reason: FLUSH AFTER USING IV ACCESS <Maday Ratliff - Last Filed: 12/27/17 16:23> Active Medications: Active Medications Acetaminophen (Tylenol) 650 mg PO Q4H PRN PRN Reason: Headache, fever, pain 1-5 Last Admin: 12/27/17 06:28 Dose: 650 mg Hydrocodone Bitart/Acetaminophen (Hycet 325/7.5 Mg Liq) 10 ml NG/OG Q4H PRN PRN Reason: PAIN SCALE 7 TO 10 SEVERE Last Admin: 12/22/17 05:33 Dose: 10 ml Al Hydroxide/Mg Hydroxide (Milk Of Magnesia Liq) 30 ml PO Q12H PRN PRN Reason: Mild Constipation Last Admin: 12/22/17 09:23 Dose: 30 ml Albuterol (Duoneb Neb (Prn)) 1 ampul NEB Q2HR NEB PRN PRN Reason: SOB/ Dyspnea Last Admin: 12/27/17 16:57 Dose: 1 ampul Alprazolam (Xanax) 0.5 mg PO TID PRN PRN Reason: Anxiety Last Admin: 12/27/17 10:25 Dose: 0.5 mg Amlodipine Besylate (Norvasc) 5 mg PO DAILY [facility] Last Admin: 12/22/17 09:19 Dose: 5 mg Bisacodyl (Dulcolax Supp) 10 mg RECTAL DAILY PRN PRN Reason: SEVERE CONSITIPATION Budesonide/Formoterol Fumarate (Symbicort 160/4.5 Mcg Inh) 2 puff INH BID [facility] Last Admin: 12/27/17 11:17 Dose: 2 puff Dextrose (D50w Vial) 50 ml IV.PUSH UNSCH PRN PRN Reason: PER HYPOGLYCEMIA PROTOCOL Diphenhydramine HCl (Benadryl Liq) 12.5 mg PO Q6H PRN PRN Reason: itching Furosemide (Lasix) 80 mg PO DAILY [facility] Last Admin: 12/22/17 09:22 Dose: 80 mg Gabapentin (Neurontin) 600 mg PO TID [facility] Last Admin: 12/27/17 12:22 Dose: 600 mg Glucagon (Glucagon Inj) 1 mg OTHER UNSCH PRN PRN Reason: for Hypoglycemia Protocol Guaifenesin (Robitussin Liq) 20 mg PO Q6H PRN PRN Reason: CHEST CONGESTION Sodium Chloride (Ns Inj) 1,000 mls @ 42 mls/hr IV.CONT .[id number] [facility] Insulin Aspart (Novolog Insulin Correctional Sugar Inj) 0 unit SQ ACHS [facility]; Protocol Last Admin: 12/27/17 12:22 Dose: 5 unit Insulin Detemir (Levemir Inj) 12 unit SQ HS [facility] Last Admin: 12/26/17 20:30 Dose: 12 unit Lactulose (Lactulose Liq) 30 ml PO DAILY PRN PRN Reason: SEVERE CONSITIPATION Last Admin: 12/23/17 21:52 Dose: 30 ml Ondansetron HCl (Zofran Inj) 4 mg IV.PUSH Q6H PRN PRN Reason: NAUSEA Last Admin: 12/27/17 13:04 Dose: 4 mg Pantoprazole Sodium (Protonix Inj) 40 mg IV.PUSH Q12HR [facility] Last Admin: 12/27/17 15:24 Dose: 40 mg Linaclotide [Linzess (] 72 Mcg) 72 each PO DAILY [facility] Polyethylene Glycol (Miralax) 17 gm PO DAILY [facility] Last Admin: 12/27/17 09:48 Dose: 17 gm Potassium Bicarb/Potassium Chloride (K-Lyte Cl Eff) 25 meq PO DAILY [facility] Last Admin: 12/27/17 09:47 Dose: 25 meq Sacubitril/Valsartan (Entresto 49 Mg/51 Mg) 1 tab PO BID [facility] Last Admin: 12/23/17 00:31 Dose: Not Given Sennosides (Senokot) 17.2 mg PO Q12H PRN PRN Reason: Moderate Constipation Sodium Chloride (Ns Flush) 2 ml IV.FLUSH UNSCH PRN PRN Reason: FLUSH AFTER USING IV ACCESS <Rachael Mejias - Last Filed: 12/27/17 17:08> Allergies Allergy/AdvReac Type Severity Reaction Status Date / Time codeine Allergy Severe ITCH, Verified 12/25/17 23:09 starts to close throat sodium hypochlorite solution Allergy Severe Anaphylaxis Verified 12/25/17 23:09 amoxicillin Allergy Mild Diarrhea Verified 12/25/17 23:09 clavulanic acid Allergy Mild Diarrhea,na Verified 12/25/17 23:09 usea *MDRO Multi-Drug Resistant AdvReac Unknown Swelling Uncoded 12/20/17 08:09 Organism Home Medications Medication Instructions Recorded Confirmed Type albuterol sulfate [Ventolin HFA] 1 puff INHALATION Q4-6H PRN 12/20/17 12/20/17 History alprazolam [Xanax] 0.5 mg PO TID PRN 12/20/17 12/20/17 History amlodipine 5 mg PO DAILY 12/20/17 12/20/17 History apixaban [Eliquis] 5 mg PO BID 12/20/17 12/20/17 History furosemide [Lasix] 80 mg PO DAILY 12/20/17 12/20/17 History gabapentin 600 mg PO TID 12/20/17 12/20/17 History hydrocortisone 1 applic TOPICAL BID 12/20/17 12/20/17 History linaclotide [Linzess] 72 mcg PO DAILY 12/20/17 12/20/17 History pantoprazole [Protonix] 40 mg PO DAILY 12/20/17 12/20/17 History potassium chloride 10 meq PO BID 12/20/17 12/20/17 History promethazine 12.5 mg PO Q6H PRN 12/20/17 12/20/17 History sacubitril-valsartan [Entresto] 1 tab PO BID 12/20/17 12/20/17 History sulfamethoxazole-trimethoprim 1 tab PO BID 12/20/17 12/20/17 History [Bactrim DS] Exam Vital signs: Vital Signs 12/26/17 15:42 12/26/17 16:00 12/26/17 20:00 Temperature 97.7 F 98.2 F Pulse Rate 73 78 69 Respiratory Rate 16 20 18 Blood Pressure 93/55 L 95/55 L Pulse Oximetry 96 96 12/26/17 23:32 12/27/17 00:00 12/27/17 04:00 Temperature 98.8 F 98.4 F Pulse Rate 75 68 Respiratory Rate 20 20 18 Blood Pressure 137/54 L 108/54 L Pulse Oximetry 94 L 94 L 12/27/17 07:53 12/27/17 08:00 12/27/17 09:17 Temperature 97.8 F Pulse Rate 68 72 70 Respiratory Rate 17 20 Blood Pressure 91/54 L Pulse Oximetry 98 97 12/27/17 11:14 12/27/17 12:00 Temperature 97.2 F L Pulse Rate 74 67 Respiratory Rate 17 Blood Pressure 88/52 L Pulse Oximetry 92 L Intake & Output 12/26/17 12/27/17 12/27/17 18:59 06:59 18:59 Intake Total 720 / 720 420 / 420 Output Total 125 / 125 Balance 720 / 720 295 / 295 Weight 166.8 kg Intake: Oral 720 / 720 420 / 420 Output: Urine 125 / 125 Other: # Voids 1 1 Date of Last Bowel Movement 12/24/17 12/24/17 12/24/17 - Constitutional mild distress - Routine HEENT Exam Head: Present: normocephalic, atraumatic - Routine Respiratory Exam Absent: accessory muscle use - Routine Abdominal Exam Present: tenderness, distended, firm Comments: Obese, hypoactive bowel sounds - Routine Skin Exam Present: dry, warm - Routine Neurological Exam Present: alert, oriented X3 <Maday Ratliff - Last Filed: 12/27/17 16:23> Vital signs: Vital Signs 12/26/17 20:00 12/26/17 23:32 12/27/17 00:00 Temperature 98.2 F 98.8 F Pulse Rate 69 75 Respiratory Rate 18 20 20 Blood Pressure 95/55 L 137/54 L Pulse Oximetry 96 94 L 12/27/17 04:00 12/27/17 07:53 12/27/17 08:00 Temperature 98.4 F 97.8 F Pulse Rate 68 68 72 Respiratory Rate 18 17 Blood Pressure 108/54 L 91/54 L Pulse Oximetry 94 L 98 12/27/17 09:17 12/27/17 11:14 12/27/17 12:00 Temperature 97.2 F L Pulse Rate 70 74 67 Respiratory Rate 20 17 Blood Pressure 88/52 L Pulse Oximetry 97 92 L 12/27/17 15:20 12/27/17 16:00 12/27/17 16:59 Temperature 97.4 F L Pulse Rate 67 71 70 Respiratory Rate 17 16 Blood Pressure 85/50 L Pulse Oximetry 90 L Intake & Output 12/26/17 12/27/17 12/27/17 18:59 06:59 18:59 Intake Total 720 / 720 420 / 420 300 / 300 Output Total 125 / 125 200 / 200 Balance 720 / 720 295 / 295 100 / 100 Weight 166.8 kg Intake: Oral 720 / 720 420 / 420 300 / 300 Output: Urine 125 / 125 200 / 200 Other: # Voids 1 1 Date of Last Bowel Movement 12/24/17 12/24/17 12/24/17 # Bowel Movements 1 # Emeses 4 <Rachael Mejias - Last Filed: 12/27/17 17:08> Results - Labs CBC & Chem 7: 12/21/17 02:29 12/22/17 07:22 Labs: Laboratory Results - last 24 hr 12/26/17 12/26/17 12/27/17 16:26 20:24 08:51 POC Glucose 207 H 209 H 216 H 12/27/17 12:05 POC Glucose 261 H <SusialejandraMaday - Last Filed: 12/27/17 16:23> - Labs CBC & Chem 7: 12/21/17 02:29 12/22/17 07:22 Labs: Laboratory Results - last 24 hr 12/26/17 12/27/17 12/27/17 20:24 08:51 12:05 POC Glucose 209 H 216 H 261 H - Imaging Impressions Abdomen/Pelvis CT 12/27/17 14:34 CONCLUSION: 1. Colonic distention with a large amount of stool as described, features most typical of a nonmechanical obstruction. 2. Gastric distention without a perceptible mass. A stricture in the region of the gastric antrum with the in the differential. Duodenum is decompressed. 3. There are scattered low-density lesions of the spleen, nonspecific but I believe they were present on the prior studies, just better seen today and probably benign. 4. There is infiltrate in the visualized right lung base. Abdomen X-Ray 12/27/17 14:39 CONCLUSION: Distended gastrointestinal tract, I believe mostly colonic and of concern for obstruction versus [place]'s. Patient is scheduled for abdomen CT. <RandellRachael - Last Filed: 12/27/17 17:08> Assessment and Plan - Plan Assessment: - Nausea, vomiting, abdominal distention and pain, constipation Today began having excessive burping and now has had multiple episodes of emesis today. Reportedly pt had coffee ground emesis, but the emesis she points to on her gown appears to be more brown in color. Pt is unsure when her last BM was, has had enemas, laxatives, and stool softeners and states has not had any significant stool. Does report passing flatus. States abdomen feels distended. Complaining of generalized abdominal pain, intermittent, described as dull. Was previously tolerating a regular diet but a few days ago had to be switched to liquids. KUB on 12/24 showed normal bowel gas pattern. Has never had EGD or colonoscopy. Denies ETOH, smoking, illicit drugs, NSAID use. Only previous abdominal surgery was C- section Of note, pt is on Elqiuis last dose was this morning Plan: Insert NG tube NG to LIWS Insert red rectal tube- place to [place] bag for gravity STAT CT abdomen and pelvis W IV contrast Serial H/H Protonix Eliquis on hold ? need for EGD pending CT results- rule out obstruction Further recommendations to follow Pt has been seen and examined by myself and Dr. Mejias and this note is written on her behalf <Maday Ratliff - Last Filed: 12/27/17 16:23> - Attending Attestation seen, examined agree with above abdominal xray, ct abdomen/pelvis noted patient just had a large amount of stool and gas npo ngt, rectal tube abdominal x ray in am egd plus minus colonic decompression in am depending on clinical scenario <Rachael Mejias - Last Filed: 12/27/17 17:08>
[2017-12-27] MEDS: Pantoprazole Inj 40 MG Vial IV.PUSH SCH ×2 (15:24→23:40)
--- NOTE | 2017-12-27 16:14 | XR ---
EXAM DATE: 12/27/2017 4:07 PM EDT AGE/SEX: 57 years / Female INDICATIONS: Distention, vomiting dark brown. CLINICAL DATA: This is the patient's initial encounter. Patient reports that signs and symptoms have been present for 4 - 6 days and indicates a pain score of 10/10. MEDICAL/SURGICAL HISTORY: Chronic obstructive pulmonary disease. diabetes Appendectomy. hyster ectomy COMPARISON: C, ABDOMEN 1V KUB, 12/24/2017. . FINDINGS: Distended viscus now seen, believe primarily:. No perceptible free air. CONCLUSION: Distended gastrointestinal tract, I believe mostly colonic and of concern for obstruction versus [place]'s. Patient is scheduled for abdomen CT. Electronically signed by: Chuckie Rivera MD 12/27/2017 4:13 PM EDT
--- NOTE | 2017-12-27 16:49 | CT ---
EXAM DATE: 12/27/2017 4:33 PM EDT AGE/SEX: 57 years / Female INDICATIONS: Distention pain vomiting coffee ground emesis CLINICAL DATA: This is the patient's initial encounter. Patient reports that signs and symptoms have been present for 1 day and indicates a pain score of 6/10. MEDICAL/SURGICAL HISTORY: Cardiovascular disease. Diabetes. Hypertension. Pacemaker. ORAL CONTRAST: No oral contrast ingested. RADIATION DOSE: 39.85 CTDI (mGy) [place] [facility] [place] [facility] [place]. . TECHNIQUE: Multiple contiguous axial images were obtained through the abdomen and pelvis following b olus infusion of 90 ml Omnipaque 350 (iohexol) nonionic water-soluble contrast as a single exam dos e. No oral contrast ingested. Using automated exposure control and adjustment of the mA and/or kV ac cording to patient size, radiation dose was kept as low as reasonably achievable to obtain optimal di agnostic quality images. DICOM format image data is available electronically for review and comparis on. FINDINGS: There is large amount of colonic stool. There is colonic distention, especially right side and transv erse colon. There is gradual tapering to a fairly normal caliber through the descending, sigmoid and rectal area. Features are most typical of a nonmechanical colonic obstruction. Marked distention also seen of the stomach, air and fluid-filled. There is air and fluid in a distend ed distal esophagus as well. No gastric mass demonstrated. The duodenum has normal caliber. Liver measures 24 cm craniocaudal. There is slight fatty infiltration. Scattered low-density lesions are seen of the spleen measuring up to 19 mm in size. No acute change i s seen of the kidneys. There are upper limits of normal retroperitoneal lymph nodes that are similar to before as well. Adrenal glands are within normal limits. Decompressed small bowel. Appendix within normal limits. Infiltrate seen in the infrahilar region of the visualized right lung. CONCLUSION: 1. Colonic distention with a large amount of stool as described, features most typical of a nonmecha nical obstruction. 2. Gastric distention without a perceptible mass. A stricture in the region of the gastric antrum wi th the in the differential. Duodenum is decompressed. 3. There are scattered low-density lesions of the spleen, nonspecific but I believe they were presen t on the prior studies, just better seen today and probably benign. 4. There is infiltrate in the visualized right lung base. Electronically signed by: Chuckie Rivera MD 12/27/2017 4:48 PM EDT
[2017-12-27] MEDS: Sod Chloride 0.9% Inj 1,000 ML IV.CONT SCH (18:01)
[2017-12-27 18:31] LABS: Baso # (Auto) 0.1 th/mm3 (0.0-0.2); Baso % (Auto) 0.5 % (0.0-2.0); Eos # (Auto) 0.1 th/mm3 (0.0-0.4); Eos % (Auto) 0.9 % (0.0-4.0); Hematocrit 36.1 % (35.0-46.0); Hemoglobin 11.8 gm/dL (11.6-15.3); Mean Corpuscular HGB Conc 32.7 % (32.0-36.0); Mean Corpuscular Volume 91.9 fL (80.0-100.0); Mean Platelet Volume 11.4 fL (7.0-11.0); Mono # (Auto) 1.6 th/mm3 (0.0-0.9); Mono % (Auto) 10.9 % (0.0-8.0); Neut # (Auto) 11.8 th/mm3 (1.8-7.7); Neut % (Auto) 80.7 % (16.0-70.0); Platelet Count 162 th/mm3 (150-450); Red Blood Count 3.93 mil/mm3 (4.00-5.30); Red Cell Distribution Width 14.4 % (11.6-17.2); White Blood Count 14.6 th/mm3 (4.0-11.0)
[2017-12-27 18:41] LABS: INR 1.1 Ratio
[2017-12-27 18:48] LABS: Calcium 8.6 mg/dL (8.5-10.1); Carbon Dioxide 34.4 meq/L (21.0-32.0); Potassium 4.3 meq/L (3.5-5.1)
[2017-12-27 19:39] LABS: ABG Base Excess 8.2 mmol/L (-2-2); ABG PCO2 56 mmHg (38-42); ABG PO2 65 mmHg (61-120)
--- NOTE | 2017-12-27 19:46 | P.PNADD ---
Addendum to Inpatient Note Reason for Addendum: Additional Documentation Additional information: Residents were called around 7:15 PM to [facility]. Patient's nurse stated that patient was difficult to arouse earlier in the evening. Patient had started vomiting coffee-ground emesis earlier today. Patient has been evaluated by GI and sent for abdominal scan. The Halicat was called due to hypotension and altered mental status. Upon arrival, nurses stated they had given patient a bolus of fluid and that her blood pressure improved and was back to baseline. Per report, patient is here due to toe infection and has multiple comorbidities. Upon arrival, patient's primary physician had been notified, who is transferring patient to the ICU and ordering stat labs. Further care deferred to the primary team.
[2017-12-27 22:32] LABS: Hemoglobin 11.9 gm/dL (11.6-15.3)
[2017-12-27 23:04] LABS: Alkaline Phosphatase 124 U/L (45-117); Total Protein 6.9 g/dL (6.4-8.2)
[2017-12-27 23:06] LABS: ABG Base Excess 7.3 mmol/L (-2-2); ABG PCO2 53 mmHg (38-42); ABG PO2 81 mmHG (61-120)
--- NOTE | 2017-12-27 23:08 | XR ---
EXAM DATE: 12/27/2017 11:01 PM EDT AGE/SEX: 57 years / Female INDICATIONS: Short of breath CLINICAL DATA: This is the patient's subsequent encounter. Patient reports that signs and symptoms h ave been present for 4 - 6 days and indicates a pain score of Nonresponsive. MEDICAL/SURGICAL HISTORY: . Chronic obstructive pulmonary disease. Diabetes . Appendectomy. H ysterectomy COMPARISON: [facility], CHEST 1V SINGLE AP, 12/20/2017. . FINDINGS: Lungs are hypoaerated. Mild airspace disease is identified in the right base. Heart and mediastinal s tructures are stable. ICD device remains in good position. CONCLUSION: Hypoaerated lungs with mild right basilar airspace disease otherwise stable chest. Electronically signed by: Lee Reveles MD 12/27/2017 11:06 PM EDT
[2017-12-27 23:11] LABS: Alanine Aminotransferase 35 U/L (10-53); Albumin 2.9 g/dL (3.4-5.0); Anion Gap 7 meq/L (5-15); Aspartate Aminotransferase 60 U/L (15-37); Blood Urea Nitrogen 38 mg/dL (7-18); Calcium 8.6 mg/dL (8.5-10.1); Carbon Dioxide 32.9 meq/L (21.0-32.0); Chloride 93 meq/L (98-107); Glomerular Filtration Rate 23 mL/min (>89); Glucose,Random 257 mg/dL (74-106); Potassium 4.9 meq/L (3.5-5.1); Sodium 133 meq/L (136-145)
--- NOTE | 2017-12-28 05:01 | P.PNADD ---
Addendum to Inpatient Note Reason for Addendum: Additional Documentation Additional information: LATE ENTRY - Patient transferred to ICU following halicat, seen / on unit with nausea and vomiting large amount of dark brown emesis. Nursing reporting wide qrs complex rhythm, ekg ordered - rhythm is v-paced. Patient with increasing oxygen requirements - ABGs with elevated CO2, oxygen saturations in low 90's. Treated with empiric antibiotics for possible aspiration. Case discussed with Dr. Lundberg, Dr. Valdivia, and Dr. Mejias via phone. Nursing unable to place NGT due to patient's nasal surgeries/deformities - multiple attempts were made. Dr. Mejias recommended OGT placement - notified bedside RN of order. Additional PRN antiemetic order placed. Portable CXR ordered - right basilar airspace disease noted.
--- NOTE | 2017-12-28 06:15 | XR ---
EXAM DATE: 12/28/2017 6:05 AM EDT AGE/SEX: 57 years / Female INDICATIONS: Abdomen distention. CLINICAL DATA: This is the patient's subsequent encounter. Patient reports that signs and symptoms h ave been present for 1 week and indicates a pain score of Nonresponsive. MEDICAL/SURGICAL HISTORY: . Chronic obstructive pulmonary disease. Diabetes . . Appendectomy. Hysterectomy COMPARISON: [facility], ABDOMEN 1V KUB, 12/27/2017. . FINDINGS: 3 supine frontal views of the abdomen demonstrate persistent abnormally dilated segment of colon yumiko suring approximately 12 cm. Given the technique is difficult to evaluate the overall bowel gas patter n but less dilated bowel is appreciated than on the prior study. Excreted contrast is present within the urinary bladder. No acute osseous abnormality is identified. CONCLUSION: Persistent abnormally dilated segment of colon but overall bowel gas pattern appears less dilated ata n on the prior study from yesterday. Technique makes it very difficult to assess the overall bowel ga s pattern. Suggest continued attention to this at follow-up imaging. Electronically signed by: Chuckie Rich MD 12/28/2017 6:14 AM EDT
--- NOTE | 2017-12-28 07:40 | P.PN ---
Subjective Interval history: awake and alert, with abdominal discomfort transferred to [facility] yesterday late pm due to coffee ground emesis- and while putting NGT- several attempts unsuccesful- had transient hypotension difficult NGT placement - an OGT tube was place - overnight - had 500cc coffee ground per OGT + vomited about 1500 cc coffee ground required 100% NRB ff all commands - Physical Exam Vital signs: Vital Signs 12/27/17 07:53 12/27/17 08:00 12/27/17 09:17 Temperature 97.8 F Pulse Rate 68 72 70 Respiratory Rate 17 20 Blood Pressure 91/54 L Pulse Oximetry 98 97 12/27/17 11:14 12/27/17 12:00 12/27/17 15:20 Temperature 97.2 F L Pulse Rate 74 67 67 Respiratory Rate 17 Blood Pressure 88/52 L Pulse Oximetry 92 L 12/27/17 16:00 12/27/17 16:59 12/27/17 19:20 Temperature 97.4 F L Pulse Rate 71 70 Respiratory Rate 17 16 Blood Pressure 85/50 L Pulse Oximetry 90 L 91 L 12/27/17 20:00 12/28/17 00:00 12/28/17 02:00 Temperature 97.4 F L 97.2 F L Pulse Rate 73 74 74 Respiratory Rate 25 H 26 H Blood Pressure 105/58 L 110/67 Pulse Oximetry 92 L 100 12/28/17 04:00 12/28/17 06:00 Temperature 97.0 F L Pulse Rate 74 76 Respiratory Rate 26 H Blood Pressure 92/64 L Pulse Oximetry 98 Intake & Output 12/27/17 12/28/17 12/28/17 18:59 06:59 18:59 Intake Total 300 / 300 100 / 100 100 / 100 Output Total 200 / 200 2450 / 2450 Balance 100 / 100 -2350 / -2350 100 / 100 Intake: IV 100 / 100 100 / 100 Rocephin Inj 2,000 MG In NS Inj 100 / 100 100 ML @ 200 mls/hr IV.SIG Q24H ERNESTINA Rx#:[id number] Flagyl 500 MG Inj 100 ML @ 100 100 / 100 mls/hr IV.SIG Q8H ERNESTINA Rx#: [id number] Oral 300 / 300 0 / 0 Output: Urine 200 / 200 Emesis 1500 / 1500 Urine Amount (Catheter) 450 / 450 Indwelling Urethral Catheter 450 / 450 Gastric Drainage 500 / 500 Oral Orogastric Tube 500 / 500 Other: Date of Last Bowel Movement 12/24/17 12/27/17 # Bowel Movements 1 # Emeses 4 5 Narrative: awake and alert, oriented x 3, on 100% NRB anicteric decreased breath sounds, no wheezes regular rhythm- paced rhythm abdomen- flabby soft, nontender extremities- no edema, blister - left heel moves all extremities spontaenously - Urinary Catheter Management Indwelling Urethral Catheter Cath placed during this visit: yes Reason for continuing: Acute urinary retention Insertion date: 12/28/17 Insertion time: 05:00 Results - Labs CBC & Chem 7: 12/29/17 03:45 12/29/17 03:45 Laboratory Results - last 24 hr 12/27/17 12/27/17 12/27/17 08:51 12:05 17:50 WBC 14.6 H RBC 3.93 L Hgb 11.8 Hct 36.1 MCV 91.9 MCH 30.0 MCHC 32.7 RDW 14.4 Plt Count 162 MPV 11.4 H Neut % (Auto) 80.7 H Lymph % (Auto) 7.0 L [place] % (Auto) 10.9 H Eos % (Auto) 0.9 Baso % (Auto) 0.5 Neut # (Auto) 11.8 H Lymph # (Auto) 1.0 [place] # (Auto) 1.6 H Eos # (Auto) 0.1 Baso # (Auto) 0.1 WBC Differential . Differential Comment Auto diff final PT INR Puncture Site Patient Temperature O2 Saturation ABG pH ABG pCO2 ABG pO2 ABG HCO3 ABG O2 Content ABG Base Excess ABG Methemoglobin Magdiel Test Hemoglobin Carboxyhemoglobin O2 Delivery Device Liter Flow Inspired O2 Critical Value Sodium Potassium Chloride Carbon Dioxide Anion Gap BUN Creatinine Estimated GFR POC Glucose 216 H 261 H Random Glucose Calcium Total Bilirubin AST ALT Alkaline Phosphatase Total Protein Albumin Nasal Screen MRSA (PCR) Blood Type Antibody Screen MTS Gel Crossmatch Bld Prod Order Comment 12/27/17 12/27/17 12/27/17 17:50 17:50 17:50 WBC RBC Hgb Hct MCV MCH MCHC RDW Plt Count MPV Neut % (Auto) Lymph % (Auto) [place] % (Auto) Eos % (Auto) Baso % (Auto) Neut # (Auto) Lymph # (Auto) [place] # (Auto) Eos # (Auto) Baso # (Auto) WBC Differential Differential Comment PT 11.0 INR 1.1 Puncture Site Patient Temperature O2 Saturation ABG pH ABG pCO2 ABG pO2 ABG HCO3 ABG O2 Content ABG Base Excess ABG Methemoglobin Magdiel Test Hemoglobin Carboxyhemoglobin O2 Delivery Device Liter Flow Inspired O2 Critical Value Sodium 132 L Potassium 4.3 Chloride 91 L Carbon Dioxide 34.4 H Anion Gap 7 BUN 36 H Creatinine 2.29 H Estimated GFR 22 L POC Glucose Random Glucose 232 H Calcium 8.6 Total Bilirubin AST ALT Alkaline Phosphatase Total Protein Albumin Nasal Screen MRSA (PCR) Blood Type A Positive Antibody Screen Negative MTS Gel Crossmatch See Detail Bld Prod Order Comment 12/27/17 12/27/17 12/27/17 19:22 19:28 21:15 WBC RBC Hgb Hct MCV MCH MCHC RDW Plt Count MPV Neut % (Auto) Lymph % (Auto) [place] % (Auto) Eos % (Auto) Baso % (Auto) Neut # (Auto) Lymph # (Auto) [place] # (Auto) Eos # (Auto) Baso # (Auto) WBC Differential Differential Comment PT INR Puncture Site Right radial Patient Temperature 98.6 O2 Saturation 90 ABG pH 7.39 ABG pCO2 56 H* ABG pO2 65 ABG HCO3 33 H ABG O2 Content 15.4 ABG Base Excess 8.2 H ABG Methemoglobin 0.8 Magdiel Test Present Hemoglobin 12.1 Carboxyhemoglobin 1.4 O2 Delivery Device Nasal cannula Liter Flow 6.00 Inspired O2 21 Critical Value Yes Sodium Potassium Chloride Carbon Dioxide Anion Gap BUN Creatinine Estimated GFR POC Glucose 299 H Random Glucose Calcium Total Bilirubin AST ALT Alkaline Phosphatase Total Protein Albumin Nasal Screen MRSA (PCR) Not detected Blood Type Antibody Screen MTS Gel Crossmatch Bld Prod Order Comment 12/27/17 12/27/17 12/27/17 21:41 21:41 21:59 WBC RBC Hgb 11.9 Hct 37.0 MCV MCH MCHC RDW Plt Count MPV Neut % (Auto) Lymph % (Auto) [place] % (Auto) Eos % (Auto) Baso % (Auto) Neut # (Auto) Lymph # (Auto) [place] # (Auto) Eos # (Auto) Baso # (Auto) WBC Differential Differential Comment PT INR Puncture Site Patient Temperature O2 Saturation ABG pH ABG pCO2 ABG pO2 ABG HCO3 ABG O2 Content ABG Base Excess ABG Methemoglobin Magdiel Test Hemoglobin Carboxyhemoglobin O2 Delivery Device Liter Flow Inspired O2 Critical Value Sodium 133 L Potassium 4.9 Chloride 93 L Carbon Dioxide 32.9 H Anion Gap 7 BUN 38 H Creatinine 2.23 H Estimated GFR 23 L POC Glucose 284 H Random Glucose 257 H Calcium 8.6 Total Bilirubin 0.5 AST 60 H ALT 35 Alkaline Phosphatase 124 H Total Protein 6.9 Albumin 2.9 L Nasal Screen MRSA (PCR) Blood Type Antibody Screen MTS Gel Crossmatch Bld Prod Order Comment 12/27/17 22:48 WBC RBC Hgb Hct MCV MCH MCHC RDW Plt Count MPV Neut % (Auto) Lymph % (Auto) [place] % (Auto) Eos % (Auto) Baso % (Auto) Neut # (Auto) Lymph # (Auto) [place] # (Auto) Eos # (Auto) Baso # (Auto) WBC Differential Differential Comment PT INR Puncture Site Left radial Patient Temperature 98.6 O2 Saturation 93 ABG pH 7.40 ABG pCO2 53 H* ABG pO2 81 ABG HCO3 32 H ABG O2 Content 15.5 ABG Base Excess 7.3 H ABG Methemoglobin 1.3 Magdiel Test Present Hemoglobin 11.9 L Carboxyhemoglobin 1.2 O2 Delivery Device Partial-rebreather Liter Flow 15.00 Inspired O2 21 Critical Value Yes Sodium Potassium Chloride Carbon Dioxide Anion Gap BUN Creatinine Estimated GFR POC Glucose Random Glucose Calcium Total Bilirubin AST ALT Alkaline Phosphatase Total Protein Albumin Nasal Screen MRSA (PCR) Blood Type Antibody Screen MTS Gel Crossmatch Bld Prod Order Comment - Imaging Impressions Chest X-Ray 12/27/17 00:00 CONCLUSION: Hypoaerated lungs with mild right basilar airspace disease otherwise stable chest. Abdomen/Pelvis CT 12/27/17 14:34 CONCLUSION: 1. Colonic distention with a large amount of stool as described, features most typical of a nonmechanical obstruction. 2. Gastric distention without a perceptible mass. A stricture in the region of the gastric antrum with the in the differential. Duodenum is decompressed. 3. There are scattered low-density lesions of the spleen, nonspecific but I believe they were present on the prior studies, just better seen today and probably benign. 4. There is infiltrate in the visualized right lung base. Abdomen X-Ray 12/27/17 14:39 CONCLUSION: Distended gastrointestinal tract, I believe mostly colonic and of concern for obstruction versus Hallie's. Patient is scheduled for abdomen CT. Abdomen X-Ray 12/28/17 06:00 CONCLUSION: Persistent abnormally dilated segment of colon but overall bowel gas pattern appears less dilated than on the prior study from yesterday. Technique makes it very difficult to assess the overall bowel gas pattern. Suggest continued attention to this at follow-up imaging. Assessment and Plan - Assessment (1) Chest pain Code(s): R07.9 - Chest pain, unspecified Status: Acute (2) Dyspnea Code(s): R06.00 - Dyspnea, unspecified Status: Acute (3) Paced cardiac rhythm Status: Acute - Plan Patient is a 57-year-old morbidly obese patient with primary medical history of HTN, HLD, DM, hypothyroidism, COPD, CHF who initially came into the hospital for complaints of chest pain described as she thinks the pacemaker is not working well. Chest pain, ruled out ACS PPM/ AICD HTN HLD CHF, not in exacerbation Paroxysmal atrial fibrillation, - paced rhythm -Continue home medication Lasix, Entresto, apixaban, amlodipine -Monitor BP trend -Resume home potassium supplement -No further chest pain -Serial EKG and troponins negative -AICD interrogation done, functioning properly. -seen by cardiology, for further recommendations, no further intervention needed -Outpatient f/up with Dr. Sanches - Roger pringle with acute GIB Acute UGIB- coffee ground emesis 12/27 Colonic dilatation - H and h stable - patient also complains sensation fo food stuck, abdomen distended - GI consult - for EGD/colonoscopy now - on PPI- change to IV PPI q 12 - hold pino - CBC, BMP now - type and x match 2 units RBC standby Acute respiratory failure with hypoxemia- high Fi02 requirement now on 100% baseline 02 4 LNC Shortness of breath and dyspnea complaints- likley baseline with body habitus Likely with underlying Restrictive lung disease- from obesity History of right lower lobe lobectomy many years ago "cancer but not" FELIPE Never smoked - ABG shows compensated respiratory acidosis- will try to decrease fi02 to maintain sats >90% - get CXR now- possible aspiration- get CBC -Duo neb scheduled, -monitor 02 sats continue 02 -Started Symbicort -incentive spirometer DM 2 Hemoglobin A1c 8.6 -Insulin sliding scale for now, states she takes Lantus at home -start patient on Levemir 10 units QHS and titrate. - hold - NPO -BG still uncontrolled, increase to 12u hs on 12/25 Left 4th and 5th toe blister -Xray Focal soft tissue swelling involving the fourth toe. The underlying bony structures are grossly intact. -Wound care consulted -Culture with no growth -Consulted podiatry, recommended to continue betadine with wet to dry dressing x7days Morbidly obese, debilitated -States she has not walked for more than a year. 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 AIR DIRECTOR visits. -Physical therapy eval and treat. -OT eval and treat -Possibly needs short-term SNF and long-term care; however difficult placing into rehab due to insurance barriers, and patient declining any truck terminal manager care -Case management consulted to assist with discharge planning Constipation: patient claiming no BM in 19days -bowel regimen in place. -checked abdominal xray which was unremarkable -give fleet enema x1 and mag citrate x1, had BM on 12/24 -monitor for constipation - Miralax daily DC planning : CM- working on rehab placment DVT Apixaban Discharge Planning: Unsafe discharge to home however difficult placement. She is requesting rehab placement, declining any truck terminal manager facility arrangements. Case management to assist with discharge planning. (1) Chest pain Qualifiers: Chest pain type: unspecified Qualified Code(s): R07.9 - Chest pain, unspecified (2) Dyspnea Qualifiers: Dyspnea type: shortness of breath Qualified Code(s): R06.02 - Shortness of breath; R06.00 - Dyspnea, unspecified; R06.01 - Orthopnea
[2017-12-28 08:36] LABS: Bacteria,Urine Many /hpf; Clarity,Urine Cloudy (Clear); Color,Urine Amber (Yellw/Straw); Glucose,Urine (UA) Negative (Negative); Hyaline Casts,Urine 6 /lpf (0-3); Leukocyte Esterase,Urine Moderate (Negative); Mucus,Urine Few /lpf (Occasional); Nitrite,Urine Negative (Negative); Specific Gravity,Urine 1.045 (1.002-1.035); Squamous Epithelial Cell,Urine 1 /hpf (0-5); Urobilinogen,Urine 4 or Greater mg/dL (Less than 2)
[2017-12-28 08:37] LABS: Baso % (Auto) 0.3 % (0.0-2.0); Eos % (Auto) 0.1 % (0.0-4.0); Hematocrit 36.1 % (35.0-46.0); Lymph # (Auto) 0.9 th/mm3 (1.0-4.8); Lymph % (Auto) 6.5 % (9.0-44.0); Mean Corpuscular HGB Conc 33.3 % (32.0-36.0); Mean Corpuscular Hemoglobin 30.1 pg (27.0-34.0); Mean Corpuscular Volume 90.5 fL (80.0-100.0); Mean Platelet Volume 11.5 fL (7.0-11.0); Mono # (Auto) 1.7 th/mm3 (0.0-0.9); Mono % (Auto) 12.7 % (0.0-8.0); Neut % (Auto) 80.4 % (16.0-70.0); Platelet Count 184 th/mm3 (150-450); Red Blood Count 3.99 mil/mm3 (4.00-5.30); Red Cell Distribution Width 14.6 % (11.6-17.2); White Blood Count 13.6 th/mm3 (4.0-11.0)
[2017-12-28 08:44] LABS: Bilirubin,Urine Negative (Negative)
[2017-12-28 08:58] LABS: Calcium 8.6 mg/dL (8.5-10.1); Carbon Dioxide 34.2 meq/L (21.0-32.0); Potassium 4.6 meq/L (3.5-5.1)
[2017-12-28] MEDS: Insulin NovoLOG Aspart Correctional Sugar Inj SQ SCH ×2 (09:35→13:38)
[2017-12-28] MEDS ORDERED: Dextrose 50% in Water 50 ML Vial IV.PUSH PRN (10:56)
[2017-12-28] MEDS ORDERED: fentaNYL 10 mcg/mL Premix Drip 2,500 MCG/250 ML BAG IV.SIG PRN (10:58)
[2017-12-28] MEDS ORDERED: Sod Chloride 0.9% Inj 1,000 ML IV.SIG ONE ×2 (10:58→16:49)
--- NOTE | 2017-12-28 10:58 | GIPROC ---
[facility] [address] [facility]. [facility], [address] EGD PROCEDURE REPORT EXAM DATE: 12/28/2017 PATIENT NAME: Britt Mace MR #: [id number] BIRTHDATE: 1960 ATTENDING: Rachael Mejias MD ORDER #: [id number] [id number] INSPECTOR: Ninoska Walters and Ning Musa STATUS: inpatient INDICATIONS: The patient is a 57 yr old female here for an EGD due to nausea, vomiting, abnormal ct PROCEDURE PERFORMED: EGD w/ biopsy MEDICATIONS: None and Per Anesthesia. TOPICAL ANESTHETIC: none CONSENT: The patient understands the risks and benefits of the procedure and understands that these risks include, but are not limited to: sedation, allergic reaction, infection, perforation and/or bleeding. Alternative means of evaluation and treatment include, among others: physical exam, x-rays, and/or surgical intervention. The patient elects to proceed with this endoscopic procedure. medical equipment was checked for proper function. Hand hygiene and appropriate measures for infection prevention was taken. After the risks, benefits and alternatives of the procedure were thoroughly explained, Informed consent was verified, confirmed and timeout was successfully executed by the treatment team. The patient was anesthetized with topical anesthesia and the EC-[id number] (Pedi C) endoscope was introduced through the mouth and advanced to the second portion of the duodenum. Retroflexed views revealed a hiatal hernia The gastroscope was then slowly withdrawn and removed. Esophagitis distal esophagus- ischemic chanhes of gastric wall involving fundus and body-greater curvature -biopsy rest stomach normal. Og tube was removed a new ngt inserted under direct visualisation. ADVERSE EVENTS: There were no complications. IMPRESSIONS: 1. Esophagitis distal esophagus- ischemic chanhes of gastric wall involving fundus and body-greater curvature -biopsy rest stomach normal 2. Retroflexed views revealed a hiatal hernia RECOMMENDATIONS: Ngt to suction protonix drip iv antibiotics general surgery/vascular surgery consult - will see supportive care poor prognosis doppler us of SMA bedside, angiogram if renal function permits -we will await recommendations from vascular surgery consider palliative care consult discussed with internet ecommerce specialist PATIENT CONDITION: stable DISPOSITION: Inpatient REPEAT EXAM: Return 1 week EGD Rachael Mejias MD eSigned: Rachael Mejias MD 12/28/2017 10:58 AM cc: PATIENT NAME: Britt Mace MR#: [id number]
--- NOTE | 2017-12-28 11:02 | GIPROC ---
[facility] [address] [facility]. [facility], [address] COLONOSCOPY PROCEDURE REPORT EXAM DATE: 12/28/2017 PATIENT NAME: Britt Mace MR #: [id number] BIRTHDATE: 1960 ENDOSCOPIST: Rachael Mejias MD ORDER #: [id number] SENSOR OPERATOR: Ning Musa and Ninoska Walters STATUS: inpatient INDICATIONS: The patient is a 57 yr old female here for a colonoscopy due to abdominal pain, sever constipation, abnormal ct PROCEDURE PERFORMED: colonoscopy with decompression MEDICATIONS: None and Per Anesthesia. PREP QUALITY: poor PREP TYPE:Other: ESTIMATED BLOOD LOSS: None CONSENT: The patient understands the risks and benefits of the procedure and understands that these risks include, but are not limited to: sedation, allergic reaction, infection, perforation and/or bleeding. Alternative means of evaluation and treatment include, among others: physical exam, x-rays, and/or surgical intervention. The patient elects to proceed with this endoscopic procedure. medical equipment was checked for proper function. Hand hygiene and appropriate measures for infection prevention was taken. After the risks, benefits and alternatives of the procedure were thoroughly explained, Informed consent was verified, confirmed and timeout was successfully executed by the treatment team. A digital exam revealed internal hemorrhoids The Pentax EC-[id number] endoscope was introduced through the anus and advanced to the cecum, which was identified by both the appendix and ileocecal valve. The instrument was then slowly withdrawn as the colon was fully examined. COLON FINDINGS: Diverticulosis sigmoid,descending ischemic colitis in right colon, cecum cecum not very dilated bowel looks viable overall. A rectal tube was left in place. Retroflexed views revealed internal hemorrhoids The scope was then completely withdrawn from the patient and the procedure terminated. ADVERSE EVENTS: There were no complications. IMPRESSIONS: 1. Diverticulosis sigmoid,descending ischemic colitis in right colon, cecum cecum not very dilated bowel looks viable overall 2. A rectal tube was left in place 3. Retroflexed views revealed internal hemorrhoids 4. Revealed internal hemorrhoids RECOMMENDATIONS: Npo ngt rectal tube iv antibiotics supportive care vascular/general surgery consult doppler us mesenteric vessels ok for anticoagulation from gi point if clinically indicated RECALL: Return 1 month Colonoscopy Rachael Mejias MD eSigned: Rachael Mejias MD 12/28/2017 11:02 AM cc:
[2017-12-28] MEDS ORDERED: Phenylephrine/NS 1000 MCG/10ML Syringe IV.PUSH ONE (12:00)
[2017-12-28] MEDS ORDERED: Lidocaine PF 1% Inj 5 ML Syringe INFILTRATN ONE (12:00)
[2017-12-28 12:07] LABS: ABG Base Excess 7.2 mmol/L (-2-2); ABG PCO2 47 mmHg (38-42); ABG PO2 57 mmHG (61-120)
[2017-12-28] MEDS: Potassium Chloride 25 MEQ Effervescent Tablet PO SCH (13:36)
[2017-12-28] MEDS: Polyethylene Glycol 3350 17 GM Packet PO SCH (13:37)
[2017-12-28] MEDS: Gabapentin 300 MG Capsule PO SCH ×2 (13:37→16:35)
[2017-12-28] MEDS: Insulin NovoLIN Regular Correctional Sugar Inj SQ SCH ×3 (13:38→21:17)
--- NOTE | 2017-12-28 14:27 | XR ---
EXAM DATE: 12/28/2017 2:22 PM EDT AGE/SEX: 57 years / Female INDICATIONS: Shortness of breath. CLINICAL DATA: This is the patient's initial encounter. Patient reports that signs and symptoms have been present for 1 day and indicates a pain score of Nonresponsive. MEDICAL/SURGICAL HISTORY: None. Pacemaker. [place] [facility] 12/27/2017. . FINDINGS: A single AP view of the chest demonstrates an endotracheal tube with the tip proximally 5 cm proximal to the tess. Left-sided pacing device. Nasogastric tube with the tip obscured and not well identif ied. Low lung volumes noted. Basilar consolidation likely relating to atelectasis. No effusions. Hear t is at the upper limits of normal in terms of size. CONCLUSION: Low lung volumes with bibasilar consolidation likely relating to atelectasis. Electronically signed by: Jensen Esteban MD 12/28/2017 2:26 PM EDT
--- NOTE | 2017-12-28 14:34 | ECG ---
Date Performed: 12/27/2017 Time Performed: 20:55:20 PTAGE: 57 years EKG: ELECTRONIC VENTRICULAR PACEMAKER ABNORMAL RHYTHM ECG Since the PREVIOUS TRACING , no significant change noted PREVIOUS TRACING DOCTOR: Leroy Rockwell Interpretating Date/Time 12/28/2017 14:32:11
--- NOTE | 2017-12-28 15:21 | P.PNVS ---
Subjective Subjective/Hospital Course: 57-year-old obese female with multiple medical problems. Not a candidate for either vascular construction or any vascular workup at this time The combination of her morbidities at this point is associated with very high mortality Discussed with Dr. Quiros and suggest also general surgery consult to follow patient for intestinal problems Full consult dictated Thanks J Objective Vital Signs / I&O: Vital Signs 12/27/17 16:00 12/27/17 16:59 12/27/17 19:20 Temperature 97.4 F L Pulse Rate 71 70 Respiratory Rate 17 16 Blood Pressure 85/50 L Pulse Oximetry 90 L 91 L 12/27/17 20:00 12/28/17 00:00 12/28/17 02:00 Temperature 97.4 F L 97.2 F L Pulse Rate 73 74 74 Respiratory Rate 25 H 26 H Blood Pressure 105/58 L 110/67 Pulse Oximetry 92 L 100 12/28/17 04:00 12/28/17 06:00 12/28/17 08:00 Temperature 97.0 F L Pulse Rate 74 76 70 Respiratory Rate 26 H Blood Pressure 92/64 L Pulse Oximetry 98 12/28/17 08:15 12/28/17 08:30 12/28/17 08:45 Temperature 98.2 F Pulse Rate 98 H 82 82 Respiratory Rate 20 22 20 Blood Pressure 121/60 134/57 L 117/55 L Pulse Oximetry 87 L 96 95 12/28/17 09:00 12/28/17 09:15 12/28/17 09:30 Temperature Pulse Rate 84 84 82 Respiratory Rate 22 22 22 Blood Pressure 104/75 108/49 L 101/55 L Pulse Oximetry 92 L 90 L 90 L 12/28/17 10:00 12/28/17 11:46 Temperature Pulse Rate 82 70 Respiratory Rate 20 14 Blood Pressure 91/51 L Pulse Oximetry 92 L 91 L Intake & Output 12/27/17 12/28/17 12/28/17 18:59 06:59 18:59 Intake Total 300 / 300 100 / 100 600 / 600 Output Total 200 / 200 2450 / 2450 100 / 100 Balance 100 / 100 -2350 / -2350 500 / 500 Intake: IV 100 / 100 100 / 100 Rocephin Inj 2,000 MG In NS Inj 100 / 100 100 ML @ 200 mls/hr IV.SIG Q24H [facility] Rx#:[id number] Flagyl 500 MG Inj 100 ML @ 100 100 / 100 mls/hr IV.SIG Q8H [facility] Rx#: [id number] Oral 300 / 300 0 / 0 Anesthesia Amount 500 / 500 Output: Urine 200 / 200 Emesis 1500 / 1500 Urine Amount (Catheter) 450 / 450 Indwelling Urethral Catheter 450 / 450 Gastric Drainage 500 / 500 100 / 100 Oral Orogastric Tube 500 / 500 100 / 100 Other: Date of Last Bowel Movement 12/24/17 12/27/17 12/28/17 # Bowel Movements 1 # Emeses 4 5 Laboratory Results - last 24 hr 12/27/17 12/27/17 12/27/17 17:50 17:50 17:50 WBC 14.6 H RBC 3.93 L Hgb 11.8 Hct 36.1 MCV 91.9 MCH 30.0 MCHC 32.7 RDW 14.4 Plt Count 162 MPV 11.4 H Neut % (Auto) 80.7 H Lymph % (Auto) 7.0 L Davis % (Auto) 10.9 H Eos % (Auto) 0.9 Baso % (Auto) 0.5 Neut # (Auto) 11.8 H Lymph # (Auto) 1.0 Davis # (Auto) 1.6 H Eos # (Auto) 0.1 Baso # (Auto) 0.1 WBC Differential . Differential Comment Auto diff final PT 11.0 INR 1.1 Puncture Site Patient Temperature O2 Saturation ABG pH ABG pCO2 ABG pO2 ABG HCO3 ABG O2 Content ABG Base Excess ABG Methemoglobin Magdiel Test Hemoglobin Carboxyhemoglobin O2 Delivery Device Liter Flow Vent Setting Inspired O2 Critical Value Sodium 132 L Potassium 4.3 Chloride 91 L Carbon Dioxide 34.4 H Anion Gap 7 BUN 36 H Creatinine 2.29 H Estimated GFR 22 L POC Glucose Random Glucose 232 H Calcium 8.6 Total Bilirubin AST ALT Alkaline Phosphatase Total Protein Albumin Urine Color Urine Clarity Urine pH Ur Specific [place] Urine Protein Urine Glucose (UA) Urine Ketones Urine Occult Blood Urine Nitrate Urine Bilirubin Urine Urobilinogen Ur Leukocyte Esterase Urine RBC Urine WBC Urine WBC Clumps Ur Squamous Epith Cells Urine Bacteria Hyaline Casts Granular Casts Urine Mucus Micro UA Comment Urine Culture Comments Nasal Screen MRSA (PCR) Blood Type Antibody Screen MTS Gel Crossmatch Bld Prod Order Comment 08/09/18 08/09/18 08/09/18 17:50 19:22 19:28 WBC RBC Hgb Hct MCV MCH MCHC RDW Plt Count MPV Neut % (Auto) Lymph % (Auto) Davis % (Auto) Eos % (Auto) Baso % (Auto) Neut # (Auto) Lymph # (Auto) Davis # (Auto) Eos # (Auto) Baso # (Auto) WBC Differential Differential Comment PT INR Puncture Site Right radial Patient Temperature 98.6 O2 Saturation 90 ABG pH 7.39 ABG pCO2 56 H* ABG pO2 65 ABG HCO3 33 H ABG O2 Content 15.4 ABG Base Excess 8.2 H ABG Methemoglobin 0.8 Magdiel Test Present Hemoglobin 12.1 Carboxyhemoglobin 1.4 O2 Delivery Device Nasal cannula Liter Flow 6.00 Vent Setting Inspired O2 21 Critical Value Yes Sodium Potassium Chloride Carbon Dioxide Anion Gap BUN Creatinine Estimated GFR POC Glucose 299 H Random Glucose Calcium Total Bilirubin AST ALT Alkaline Phosphatase Total Protein Albumin Urine Color Urine Clarity Urine pH Ur Specific [place] Urine Protein Urine Glucose (UA) Urine Ketones Urine Occult Blood Urine Nitrate Urine Bilirubin Urine Urobilinogen Ur Leukocyte Esterase Urine RBC Urine WBC Urine WBC Clumps Ur Squamous Epith Cells Urine Bacteria Hyaline Casts Granular Casts Urine Mucus Micro UA Comment Urine Culture Comments Nasal Screen MRSA (PCR) Blood Type A Positive Antibody Screen Negative MTS Gel Crossmatch See Detail Bld Prod Order Comment 12/27/17 12/27/17 12/27/17 21:15 21:41 21:41 WBC RBC Hgb 11.9 Hct 37.0 MCV MCH MCHC RDW Plt Count MPV Neut % (Auto) Lymph % (Auto) Davis % (Auto) Eos % (Auto) Baso % (Auto) Neut # (Auto) Lymph # (Auto) Davis # (Auto) Eos # (Auto) Baso # (Auto) WBC Differential Differential Comment PT INR Puncture Site Patient Temperature O2 Saturation ABG pH ABG pCO2 ABG pO2 ABG HCO3 ABG O2 Content ABG Base Excess ABG Methemoglobin Magdiel Test Hemoglobin Carboxyhemoglobin O2 Delivery Device Liter Flow Vent Setting Inspired O2 Critical Value Sodium 133 L Potassium 4.9 Chloride 93 L Carbon Dioxide 32.9 H Anion Gap 7 BUN 38 H Creatinine 2.23 H Estimated GFR 23 L POC Glucose Random Glucose 257 H Calcium 8.6 Total Bilirubin 0.5 AST 60 H ALT 35 Alkaline Phosphatase 124 H Total Protein 6.9 Albumin 2.9 L Urine Color Urine Clarity Urine pH Ur Specific [place] Urine Protein Urine Glucose (UA) Urine Ketones Urine Occult Blood Urine Nitrate Urine Bilirubin Urine Urobilinogen Ur Leukocyte Esterase Urine RBC Urine WBC Urine WBC Clumps Ur Squamous Epith Cells Urine Bacteria Hyaline Casts Granular Casts Urine Mucus Micro UA Comment Urine Culture Comments Nasal Screen MRSA (PCR) Not detected Blood Type Antibody Screen MTS Gel Crossmatch Bld Prod Order Comment 12/27/17 12/27/17 12/28/17 21:59 22:48 06:10 WBC RBC Hgb Hct MCV MCH MCHC RDW Plt Count MPV Neut % (Auto) Lymph % (Auto) Davis % (Auto) Eos % (Auto) Baso % (Auto) Neut # (Auto) Lymph # (Auto) Davis # (Auto) Eos # (Auto) Baso # (Auto) WBC Differential Differential Comment PT INR Puncture Site Left radial Patient Temperature 98.6 O2 Saturation 93 ABG pH 7.40 ABG pCO2 53 H* ABG pO2 81 ABG HCO3 32 H ABG O2 Content 15.5 ABG Base Excess 7.3 H ABG Methemoglobin 1.3 Magdiel Test Present Hemoglobin 11.9 L Carboxyhemoglobin 1.2 O2 Delivery Device Partial-rebreather Liter Flow 15.00 Vent Setting Inspired O2 21 Critical Value Yes Sodium Potassium Chloride Carbon Dioxide Anion Gap BUN Creatinine Estimated GFR POC Glucose 284 H Random Glucose Calcium Total Bilirubin AST ALT Alkaline Phosphatase Total Protein Albumin Urine Color Cristal Urine Clarity Cloudy H Urine pH 5.0 Ur Specific [place] 1.045 H Urine Protein 30 H Urine Glucose (UA) Negative Urine Ketones Negative Urine Occult Blood Moderate H Urine Nitrate Negative Urine Bilirubin Negative Urine Urobilinogen 4 or greater Ur Leukocyte Esterase Moderate H Urine RBC 13 H Urine WBC Urine WBC Clumps Many H Ur Squamous Epith Cells 1 Urine Bacteria Many H Hyaline Casts 6 Granular Casts 11 Urine Mucus Few H Micro UA Comment Culture indicated Urine Culture Comments Culture indicated Nasal Screen MRSA (PCR) Blood Type Antibody Screen MTS Gel Crossmatch Bld Prod Order Comment 12/28/17 12/28/17 12/28/17 08:30 08:30 11:54 WBC 13.6 H RBC 3.99 L Hgb 12.0 Hct 36.1 MCV 90.5 MCH 30.1 MCHC 33.3 RDW 14.6 Plt Count 184 MPV 11.5 H Neut % (Auto) 80.4 H Lymph % (Auto) 6.5 L Davis % (Auto) 12.7 H Eos % (Auto) 0.1 Baso % (Auto) 0.3 Neut # (Auto) 11.0 H Lymph # (Auto) 0.9 L Davis # (Auto) 1.7 H Eos # (Auto) 0.0 Baso # (Auto) 0.0 WBC Differential . Differential Comment Auto diff final PT INR Puncture Site Right radial Patient Temperature 98.6 O2 Saturation 88 L* ABG pH 7.45 H ABG pCO2 47 H ABG pO2 57 L* ABG HCO3 31 H ABG O2 Content 13.9 ABG Base Excess 7.2 H ABG Methemoglobin 1.3 Magdiel Test Present Hemoglobin 11.2 L Carboxyhemoglobin 1.2 O2 Delivery Device Ventilator Liter Flow Vent Setting 14/600/1.0/+5 Inspired O2 40 Critical Value Yes Sodium 133 L Potassium 4.6 Chloride 92 L Carbon Dioxide 34.2 H Anion Gap 7 BUN 44 H Creatinine 2.54 H Estimated GFR 20 L POC Glucose Random Glucose 272 H Calcium 8.6 Total Bilirubin AST ALT Alkaline Phosphatase Total Protein Albumin Urine Color Urine Clarity Urine pH Ur Specific [place] Urine Protein Urine Glucose (UA) Urine Ketones Urine Occult Blood Urine Nitrate Urine Bilirubin Urine Urobilinogen Ur Leukocyte Esterase Urine RBC Urine WBC Urine WBC Clumps Ur Squamous Epith Cells Urine Bacteria Hyaline Casts Granular Casts Urine Mucus Micro UA Comment Urine Culture Comments Nasal Screen MRSA (PCR) Blood Type Antibody Screen MTS Gel Crossmatch Bld Prod Order Comment 12/28/17 12:28 WBC RBC Hgb Hct MCV MCH MCHC RDW Plt Count MPV Neut % (Auto) Lymph % (Auto) Davis % (Auto) Eos % (Auto) Baso % (Auto) Neut # (Auto) Lymph # (Auto) Davis # (Auto) Eos # (Auto) Baso # (Auto) WBC Differential Differential Comment PT INR Puncture Site Patient Temperature O2 Saturation ABG pH ABG pCO2 ABG pO2 ABG HCO3 ABG O2 Content ABG Base Excess ABG Methemoglobin Magdiel Test Hemoglobin Carboxyhemoglobin O2 Delivery Device Liter Flow Vent Setting Inspired O2 Critical Value Sodium Potassium Chloride Carbon Dioxide Anion Gap BUN Creatinine Estimated GFR POC Glucose 271 H Random Glucose Calcium Total Bilirubin AST ALT Alkaline Phosphatase Total Protein Albumin Urine Color Urine Clarity Urine pH Ur Specific [place] Urine Protein Urine Glucose (UA) Urine Ketones Urine Occult Blood Urine Nitrate Urine Bilirubin Urine Urobilinogen Ur Leukocyte Esterase Urine RBC Urine WBC Urine WBC Clumps Ur Squamous Epith Cells Urine Bacteria Hyaline Casts Granular Casts Urine Mucus Micro UA Comment Urine Culture Comments Nasal Screen MRSA (PCR) Blood Type Antibody Screen MTS Gel Crossmatch Bld Prod Order Comment Impressions Chest X-Ray 12/27/17 00:00 CONCLUSION: Hypoaerated lungs with mild right basilar airspace disease otherwise stable chest. Abdomen/Pelvis CT 12/27/17 14:34 CONCLUSION: 1. Colonic distention with a large amount of stool as described, features most typical of a nonmechanical obstruction. 2. Gastric distention without a perceptible mass. A stricture in the region of the gastric antrum with the in the differential. Duodenum is decompressed. 3. There are scattered low-density lesions of the spleen, nonspecific but I believe they were present on the prior studies, just better seen today and probably benign. 4. There is infiltrate in the visualized right lung base. Abdomen X-Ray 12/27/17 14:39 CONCLUSION: Distended gastrointestinal tract, I believe mostly colonic and of concern for obstruction versus Stout's. Patient is scheduled for abdomen CT. Abdomen X-Ray 12/28/17 06:00 CONCLUSION: Persistent abnormally dilated segment of colon but overall bowel gas pattern appears less dilated than on the prior study from yesterday. Technique makes it very difficult to assess the overall bowel gas pattern. Suggest continued attention to this at follow-up imaging. Chest X-Ray 12/28/17 10:54 CONCLUSION: Low lung volumes with bibasilar consolidation likely relating to atelectasis.
--- NOTE | 2017-12-28 15:37 | MB ---
cc: Nicholas Menjivar MD DATE: 12/28/2017 HISTORY OF PRESENT ILLNESS: The patient is a 57-year-old female with multiple medical comorbidities, which include hypertension, diabetes mellitus, morbid obesity, hypothyroidism, COPD, CHF with a previous pacemaker placement, was admitted under hospitalist service on 12/21/2017 for chest pain. During her hospital course, she was seen by cardiology and GI services. The patient went into renal failure on 12/27/2017 where her creatinine increased from 0.97 on arrival to 2.29. She was also complaining of abdominal distention associated with nausea and vomiting. The patient underwent CT abdomen and pelvis yesterday, which showed colonic distention and gastric distention. She underwent upper endoscopy and a colonoscopy today by Dr. Mejias which showed distal esophagitis, ischemic changes of the gastric wall involving fundus and body, greater curvature in addition to ischemic colitis in the right colon, and sigmoid diverticulosis. Vascular Surgery was consulted. Of note, the patient was on Eliquis 5 mg b.i.d. at home. She remained on mechanical ventilation post-procedure and Critical Care Medicine was consulted for critical care management. Her laboratory today showed worsening renal function with a creatinine of 2.54. When seen, the patient is on full mechanical ventilation. Diuretics were discontinued. PAST MEDICAL HISTORY: Significant for CHF, COPD, diabetes mellitus, hyperlipidemia, hypertension, hypothyroidism. PAST SURGICAL HISTORY: Previous pacemaker placement. ALLERGIES: Multiple which include CODEINE, AMOXICILLIN, AUGMENTIN. FAMILY HISTORY: Noncontributory. SOCIAL HISTORY: Nonsmoker, social drinker per records. CURRENT MEDICATIONS: Include: 1. DuoNeb. 2. Ceftriaxone. 3. Flagyl. 4. Protonix. REVIEW OF SYSTEMS: As per HPI. Rest of review of systems unobtainable. PHYSICAL EXAMINATION: GENERAL: The patient is a 57-year-old female, intubated and on full mechanical ventilation. VITAL SIGNS: Temperature of 98.2, pulse of 71, blood pressure 111/54, saturation 91%. Vent setting PRVC at assist control rate of 14, tidal volume 600, ____ 1, PEEP 5, FiO2 40%. HEENT: Atraumatic, normocephalic. Pupils are equal, round, reactive to light and accommodation. Extraocular muscles intact. Conjunctivae pink. Nonicteric sclerae. Oral mucosa within normal. NECK: Supple. No JVD. No thyromegaly. Trachea midline. CARDIOVASCULAR: Regular rate and rhythm. Normal S1, S2. No murmurs, rubs or gallops. PULMONARY: Bilateral equal air entry. No rales or wheezing. ABDOMEN: Soft, obese, nontender. No distention. Positive bowel sounds. EXTREMITIES: No clubbing, +1 edema and cyanosis of her left toe. NEUROLOGIC: Intubated. LABORATORY DATA: WBC 13.6, hemoglobin 12, hematocrit 36, platelet count 184. Sodium 133, potassium 4.6, chloride 92, CO2 of 34, BUN 44, creatinine 2.54. Urinalysis showed moderate leukocyte esterase, many bacteria. RADIOGRAPHIC STUDIES: CT abdomen and pelvis from 12/27/2017 showed colonic distention, gastric distention, scattered low density lesions of the spleen, infiltrate visualized right lung base. Chest x-ray from 12/27/2017 showed hyper aerated lungs with mild right basilar airspace disease. ASSESSMENT AND PLAN: 1. Acute hypoxemic and hypercapnic respiratory failure. 2. Ischemic changes of the gastric wall and descending ischemic colitis in the right colon. 3. Acute renal failure. 4. Hyponatremia. 5. Urinary tract infection. 6. Leukocytosis. 7. History of congestive heart failure. 8. History of chronic obstructive pulmonary disease. 9. Diabetes mellitus. 10. History of hypertension. 11. Morbid obesity. RECOMMENDATIONS: 1. Fentanyl infusion if needed for sedation. Monitor neuro status closely. 2. Continue with vent support and maintain sats above 92%. 3. Bronchodilators in the form of DuoNeb every 6 hours and will initiate ICU vent bundle. 4. We will obtain chest x-ray and ABG. 5. Monitor heart rate and blood pressure closely and maintain MAP greater than 65 mmHg. Hold antihypertensive medications and we will check lactic acid level. 6. Monitor renal function, I's and O's and avoid nephrotoxins. Continue with IV hydration. The patient was placed NS at 100 mL an hour. 7. Consult nephrology service and will give 1 liter bolus of normal saline. 8. Keep n.p.o. for now and continue with her Protonix 40 mg daily for gastrointestinal prophylaxis. 9. The patient underwent upper endoscopy and colonoscopy as stated above, which showed ischemic changes of the gastric wall and ischemic colitis of the right colon. Case discussed with Dr. Mejias. 10. Will consult vascular surgery. Of note, the patient was on Eliquis 5 mg b.i.d. at home, currently on hold. 11. Continue with antibiotics in the form of Rocephin and Flagyl. Monitor for signs of infection, which include fever and WBC. Followup on urine culture. 12. Monitor CBC and coags. 13. Place on sliding scale insulin, medium scale with Accu-Cheks q.4 for glycemic control. 14. Gastrointestinal prophylaxis with Protonix and DVT prophylaxis with heparin subcutaneously. 15. Place central line if indicated. 16. The patient is critically ill with respiratory failure, acute renal failure, urinary tract infection and ischemic changes of the gastric wall in addition to ischemic colitis of the right colon. 17. Will consult Palliative Care to assist with goals of care. MD CHUCK Ann/spencer/jack , 12:43 PM , 01:01 PM
--- NOTE | 2017-12-28 16:05 | P.CONGS ---
[facility] Gen Surgery Consult Note Consult date: 12/28/17 Reason for consult: other (Consult from for partial ischemia of the greater curve of the stomach and colitis) Narrative: CONSULTATION NOTE FOR SURGICAL ATTENDING, DR. ZACHARY MORIN The patient is a 57-year-old female with multiple medical comorbidities, which include hypertension, diabetes mellitus, morbid obesity, hypothyroidism, COPD, CHF with a previous pacemaker placement, was admitted under hospitalist service on 12/21/2017 for chest pain. During her hospital course, she was seen by cardiology and GI services. The patient went into renal failure on 12/27/2017 where her creatinine increased from 0.97 on arrival to 2.29. She was also complaining of abdominal distention associated with nausea and vomiting. The patient underwent CT abdomen and pelvis yesterday, which showed colonic distention and gastric distention. She underwent upper endoscopy and a colonoscopy today by Dr. Mejias which showed distal esophagitis, ischemic changes of the gastric wall involving fundus and body, greater curvature in addition to ischemic colitis in the right colon, and sigmoid diverticulosis The above was relayed to me by the critical care physician taking care of this patient Patient is presently in the ICU intubated on the ventilator Review of Systems unobtainable due to endotracheal tube, unobtainable due to mental condition PMFSH - History History Provided By: Medical Record (In the nursing staff at the bedside and Dr. Quiros during consultation) - Medical / Surgical Hx Neg / Unobtainable Medical Problems Denied: Unable to Obtain - Medical History Medical History: Medical History (Last Reviewed 12/28/17 @ 15:57 by Zachary Morin MD) CHF (congestive heart failure) COPD (chronic obstructive pulmonary disease) Diabetes Hyperlipemia Hypertension Hypothyroid - Surgical History Surgical History: Surgical History (Last Reviewed 12/28/17 @ 15:57 by Zachary Morin MD) Pacemaker (Acute) - Family History Family History: Family History (Last Reviewed 12/28/17 @ 15:57 by Zachary Morin MD) Father Heart disease - Tobacco History Second Hand Smoke Exposure: No Smoking Status: Never smoker Tobacco Type: Cigarettes - Alcohol History How Often Do You Have a Drink Containing Alcohol: Monthly or less - Substance Use History Substance History: No History of Abuse - Travel History Recent Travel in the [place] Within the Last 8 Weeks: No Recent Travel Out of the Country Within the Last 8 Weeks: No - Immunization History Tetanus Immunization: <5 Years Hx Influenza Vaccine This Season: Yes Medications and Allergies Active Medications: Active Medications Acetaminophen (Tylenol) 650 mg PO Q4H PRN PRN Reason: Headache, fever, pain 1-5 Last Admin: 12/27/17 06:28 Dose: 650 mg Hydrocodone Bitart/Acetaminophen (Hycet 325/7.5 Mg Liq) 10 ml NG/OG Q4H PRN PRN Reason: PAIN SCALE 7 TO 10 SEVERE Last Admin: 12/22/17 05:33 Dose: 10 ml Al Hydroxide/Mg Hydroxide (Milk Of Magnesia Liq) 30 ml PO Q12H PRN PRN Reason: Mild Constipation Last Admin: 12/22/17 09:23 Dose: 30 ml Albuterol (Duoneb Neb (Prn)) 1 ampul NEB Q2HR NEB PRN PRN Reason: SOB/ Dyspnea Last Admin: 12/27/17 16:57 Dose: 1 ampul Albuterol (Duoneb Neb (Hans)) 1 ampul NEB Q4HR NEB HANS Last Admin: 12/28/17 15:47 Dose: 1 ampul Alprazolam (Xanax) 0.5 mg PO TID PRN PRN Reason: Anxiety Last Admin: 12/27/17 10:25 Dose: 0.5 mg Bisacodyl (Dulcolax Supp) 10 mg RECTAL DAILY PRN PRN Reason: SEVERE CONSITIPATION Budesonide/Formoterol Fumarate (Symbicort 160/4.5 Mcg Inh) 2 puff INH BID HANS Last Admin: 12/27/17 21:52 Dose: Not Given Dextrose (D50w Vial) 50 ml IV.PUSH UNSCH PRN PRN Reason: PER HYPOGLYCEMIA PROTOCOL Diphenhydramine HCl (Benadryl Liq) 12.5 mg PO Q6H PRN PRN Reason: itching Gabapentin (Neurontin) 600 mg PO TID [facility] Last Admin: 12/28/17 13:37 Dose: Not Given Glucagon (Glucagon Inj) 1 mg OTHER PRN PRN PRN Reason: for Hypoglycemia Protocol Guaifenesin (Robitussin Liq) 20 mg PO Q6H PRN PRN Reason: CHEST CONGESTION Sodium Chloride (Ns Inj) 1,000 mls @ 100 mls/hr IV.CONT .Q10H [facility] Last Admin: 12/27/17 18:01 Dose: 42 mls/hr Ceftriaxone Sodium 2,000 mg/ (Sodium Chloride) 100 mls @ 200 mls/hr IV.SIG Q24H [facility] Last Infusion: 12/28/17 07:33 Dose: Infused Metronidazole/Sodium Chloride (Flagyl 500 Mg Inj) 100 mls @ 100 mls/hr IV.SIG Q8H [facility] Last Admin: 12/28/17 13:36 Dose: Not Given Fentanyl (Fentanyl 10 Mcg/Ml Premix Drip) 2,500 mcg in 250 mls @ 5 mls/hr IV.SIG TITRATE PRN; Protocol PRN Reason: Per Protocol Insulin Human Regular (Novolin R Correctional Sugar Inj) 0 units SQ Q4HR HANS; Protocol Last Admin: 12/28/17 13:38 Dose: Not Given Lactulose (Lactulose Liq) 30 ml PO DAILY PRN PRN Reason: SEVERE CONSITIPATION Last Admin: 12/23/17 21:52 Dose: 30 ml Ondansetron HCl (Zofran Inj) 4 mg IV.PUSH Q6H PRN PRN Reason: NAUSEA Last Admin: 12/28/17 00:27 Dose: 4 mg Pantoprazole Sodium (Protonix Inj) 40 mg IV.PUSH Q12HR [facility] Last Admin: 12/27/17 23:40 Dose: Not Given Linaclotide [Linzess (] 72 Mcg) 72 each PO DAILY [facility] Polyethylene Glycol (Miralax) 17 gm PO DAILY [facility] Last Admin: 12/28/17 13:37 Dose: Not Given Prochlorperazine Edisylate (Compazine Inj) 5 mg IV.PUSH Q4H PRN PRN Reason: NAUSEA OR VOMITING Last Admin: 12/28/17 05:33 Dose: 5 mg Sacubitril/Valsartan (Entresto 49 Mg/51 Mg) 1 tab PO BID [facility] Last Admin: 12/23/17 00:31 Dose: Not Given Sennosides (Senokot) 17.2 mg PO Q12H PRN PRN Reason: Moderate Constipation Sodium Chloride (Ns Flush) 2 ml IV.FLUSH UNSCH PRN PRN Reason: FLUSH AFTER USING IV ACCESS Allergies Allergy/AdvReac Type Severity Reaction Status Date / Time codeine Allergy Severe ITCH, Verified 12/25/17 23:09 starts to close throat sodium hypochlorite solution Allergy Severe Anaphylaxis Verified 12/25/17 23:09 amoxicillin Allergy Mild Diarrhea Verified 12/25/17 23:09 clavulanic acid Allergy Mild Diarrhea,na Verified 12/25/17 23:09 usea *MDRO Multi-Drug Resistant AdvReac Unknown Swelling Uncoded 12/20/17 08:09 Organism Home Medications Medication Instructions Recorded Confirmed Type albuterol sulfate [Ventolin HFA] 1 puff INHALATION Q4-6H PRN 12/20/17 12/20/17 History alprazolam [Xanax] 0.5 mg PO TID PRN 12/20/17 12/20/17 History amlodipine 5 mg PO DAILY 12/20/17 12/20/17 History apixaban [Eliquis] 5 mg PO BID 12/20/17 12/20/17 History furosemide [Lasix] 80 mg PO DAILY 12/20/17 12/20/17 History gabapentin 600 mg PO TID 12/20/17 12/20/17 History hydrocortisone 1 applic TOPICAL BID 12/20/17 12/20/17 History linaclotide [Linzess] 72 mcg PO DAILY 12/20/17 12/20/17 History pantoprazole [Protonix] 40 mg PO DAILY 12/20/17 12/20/17 History potassium chloride 10 meq PO BID 12/20/17 12/20/17 History promethazine 12.5 mg PO Q6H PRN 12/20/17 12/20/17 History sacubitril-valsartan [Entresto] 1 tab PO BID 12/20/17 12/20/17 History sulfamethoxazole-trimethoprim 1 tab PO BID 12/20/17 12/20/17 History [Bactrim DS] Exam Vital signs: Vital Signs 12/27/17 16:00 12/27/17 16:59 12/27/17 19:20 Temperature 97.4 F L Pulse Rate 71 70 Respiratory Rate 17 16 Blood Pressure 85/50 L Pulse Oximetry 90 L 91 L 12/27/17 20:00 12/28/17 00:00 12/28/17 02:00 Temperature 97.4 F L 97.2 F L Pulse Rate 73 74 74 Respiratory Rate 25 H 26 H Blood Pressure 105/58 L 110/67 Pulse Oximetry 92 L 100 12/28/17 04:00 12/28/17 06:00 12/28/17 08:00 Temperature 97.0 F L Pulse Rate 74 76 70 Respiratory Rate 26 H Blood Pressure 92/64 L Pulse Oximetry 98 12/28/17 08:15 12/28/17 08:30 12/28/17 08:45 Temperature 98.2 F Pulse Rate 98 H 82 82 Respiratory Rate 20 22 20 Blood Pressure 121/60 134/57 L 117/55 L Pulse Oximetry 87 L 96 95 12/28/17 09:00 12/28/17 09:15 12/28/17 09:30 Temperature Pulse Rate 84 84 82 Respiratory Rate 22 22 22 Blood Pressure 104/75 108/49 L 101/55 L Pulse Oximetry 92 L 90 L 90 L 12/28/17 10:00 12/28/17 11:46 12/28/17 12:00 Temperature Pulse Rate 82 70 73 Respiratory Rate 20 14 Blood Pressure 91/51 L Pulse Oximetry 92 L 91 L 12/28/17 14:27 12/28/17 14:31 12/28/17 14:36 Temperature Pulse Rate 67 67 68 Respiratory Rate 20 19 22 Blood Pressure 96/54 L 105/54 L Pulse Oximetry 97 98 98 12/28/17 14:41 12/28/17 14:46 12/28/17 14:51 Temperature Pulse Rate 67 67 67 Respiratory Rate 21 16 16 Blood Pressure 118/55 L 92/54 L 98/56 L Pulse Oximetry 98 97 97 12/28/17 14:55 12/28/17 15:00 12/28/17 15:01 Temperature Pulse Rate 67 68 68 Respiratory Rate 20 17 16 Blood Pressure 103/59 L 104/51 L Pulse Oximetry 97 97 97 12/28/17 15:05 12/28/17 15:10 12/28/17 15:15 Temperature Pulse Rate 68 68 69 Respiratory Rate 37 H 18 17 Blood Pressure 108/56 L 104/59 L 106/62 Pulse Oximetry 100 100 100 12/28/17 15:20 12/28/17 15:25 12/28/17 15:31 Temperature Pulse Rate 69 35 L 70 Respiratory Rate 19 14 18 Blood Pressure 103/57 L 106/63 105/56 L Pulse Oximetry 100 100 100 12/28/17 15:36 12/28/17 15:41 12/28/17 15:43 Temperature Pulse Rate 36 L 72 Respiratory Rate 18 17 14 Blood Pressure 113/57 L 112/55 L Pulse Oximetry 100 100 95 12/28/17 15:45 12/28/17 15:47 Temperature Pulse Rate 71 73 Respiratory Rate 18 22 Blood Pressure 105/58 L Pulse Oximetry 96 Intake & Output 12/27/17 12/28/17 12/28/17 18:59 06:59 18:59 Intake Total 300 / 300 100 / 100 600 / 600 Output Total 200 / 200 2450 / 2450 100 / 100 Balance 100 / 100 -2350 / -2350 500 / 500 Weight 197 kg Intake: IV 100 / 100 100 / 100 Rocephin Inj 2,000 MG In NS Inj 100 / 100 100 ML @ 200 mls/hr IV.SIG Q24H HANS Rx#:[id number] Flagyl 500 MG Inj 100 ML @ 100 100 / 100 mls/hr IV.SIG Q8H HANS Rx#: [id number] Oral 300 / 300 0 / 0 Anesthesia Amount 500 / 500 Output: Urine 200 / 200 Emesis 1500 / 1500 Urine Amount (Catheter) 450 / 450 Indwelling Urethral Catheter 450 / 450 Gastric Drainage 500 / 500 100 / 100 Oral Orogastric Tube 500 / 500 100 / 100 Other: Date of Last Bowel Movement 12/24/17 12/27/17 12/28/17 # Bowel Movements 1 # Emeses 4 5 - Constitutional morbidly obese, obese, chronically ill appearing, disheveled Comments: Patient has alopecia on the ventilator - Routine Neck Exam Present: trachea midline Comments: Left-sided pacer - Routine Chest/Breast/Axilla Exam Chest wall: Present: pacemaker - Routine Respiratory Exam Present: patient mechanically ventilated - Routine Abdominal Exam Present: soft Comments: Morbidly obese with large pannus no rebound no guarding - Routine Extremities Exam Present: edema Comments: Toes on the left lower extremity have some ischemic changes significant pitting edema in the left lower extremity - Routine Neurological Exam Patient extubated on the ventilator - Additional findings Additional findings: ITS Impressions Toe X-Ray 12/20/17 00:00 CONCLUSION: Focal soft tissue swelling involving the fourth toe. The underlying bony structures are grossly intact. Abdomen/Pelvis CT 12/27/17 14:34 CONCLUSION: 1. Colonic distention with a large amount of stool as described, features most typical of a nonmechanical obstruction. 2. Gastric distention without a perceptible mass. A stricture in the region of the gastric antrum with the in the differential. Duodenum is decompressed. 3. There are scattered low-density lesions of the spleen, nonspecific but I believe they were present on the prior studies, just better seen today and probably benign. 4. There is infiltrate in the visualized right lung base. Abdomen X-Ray 12/28/17 06:00 CONCLUSION: Persistent abnormally dilated segment of colon but overall bowel gas pattern appears less dilated than on the prior study from yesterday. Technique makes it very difficult to assess the overall bowel gas pattern. Suggest continued attention to this at follow-up imaging. Chest X-Ray 12/28/17 10:54 CONCLUSION: Low lung volumes with bibasilar consolidation likely relating to atelectasis. Laboratory Last Values WBC 13.6 th/mm3 (4.0-11.0) H 12/28/17 08:30 RBC 3.99 mil/mm3 (4.00-5.30) L 12/28/17 08:30 Hgb 12.0 gm/dL (11.6-15.3) 12/28/17 08:30 Hct 36.1 % (35.0-46.0) 12/28/17 08:30 MCV 90.5 fL (80.0-100.0) 12/28/17 08:30 MCH 30.1 pg (27.0-34.0) 12/28/17 08:30 MCHC 33.3 % (32.0-36.0) 12/28/17 08:30 RDW 14.6 % (11.6-17.2) 12/28/17 08:30 Plt Count 184 th/mm3 (150-450) 12/28/17 08:30 MPV 11.5 fL (7.0-11.0) H 12/28/17 08:30 Prelim Diff (Auto) Slide review pending 12/21/17 02:29 Neut % (Auto) 80.4 % (16.0-70.0) H 12/28/17 08:30 Lymph % (Auto) 6.5 % (9.0-44.0) L 12/28/17 08:30 Clay % (Auto) 12.7 % (0.0-8.0) H 12/28/17 08:30 Eos % (Auto) 0.1 % (0.0-4.0) 12/28/17 08:30 Baso % (Auto) 0.3 % (0.0-2.0) 12/28/17 08:30 Neut # (Auto) 11.0 th/mm3 (1.8-7.7) H 12/28/17 08:30 Lymph # (Auto) 0.9 th/mm3 (1.0-4.8) L 12/28/17 08:30 Clay # (Auto) 1.7 th/mm3 (0.0-0.9) H 12/28/17 08:30 Eos # (Auto) 0.0 th/mm3 (0.0-0.4) 12/28/17 08:30 Baso # (Auto) 0.0 th/mm3 (0.0-0.2) 12/28/17 08:30 WBC Differential . 12/28/17 08:30 Seg Neuts % (Manual) 59 % (16-70) 12/21/17 02:29 Band Neuts % (Manual) 2 % (0-6) 12/21/17 02:29 Lymphocytes % (Manual) 26 % (9-44) 12/21/17 02:29 Monocytes % (Manual) 8 % (0-8) 12/21/17 02:29 Eosinophils % (Manual) 1 % (0-4) 12/21/17 02:29 Basophils % (Manual) 3 % (0-2) H 12/21/17 02:29 Metamyelocytes % (Man) 1 % (0-1) 12/21/17 02:29 Myelocytes % (Man) 2 % (0-0) H 12/20/17 08:25 Abs Neuts (Manual) 4.4 th/mm3 (1.8-7.7) 12/21/17 02:29 Differential Comment Auto diff final 12/28/17 08:30 Platelet Estimate Normal (Normal) 12/21/17 02:29 Platelet Morphology Normal (Normal) 12/21/17 02:29 RBC Morphology Normal (Normal) 12/20/17 08:25 Ovalocytes 1+ (None) H 12/21/17 02:29 Keratocytes Occ (None) H 12/21/17 02:29 PT 11.0 sec (9.8-11.6) 12/27/17 17:50 INR 1.1 Ratio 12/27/17 17:50 APTT 29.4 sec (24.3-30.1) 12/20/17 08:25 Puncture Site Right radial 12/28/17 11:54 Patient Temperature 98.6 12/28/17 11:54 O2 Saturation 88 % (90-100) L* 12/28/17 11:54 ABG pH 7.45 (7.380-7.420) H 12/28/17 11:54 ABG pCO2 47 mmHg (38-42) H 12/28/17 11:54 ABG pO2 57 mmHG (61-120) L* 12/28/17 11:54 ABG HCO3 31 mmol/L (22-26) H 12/28/17 11:54 ABG O2 Content 13.9 Vol % (12.0-20.0) 12/28/17 11:54 ABG Base Excess 7.2 mmol/L (-2-2) H 12/28/17 11:54 ABG Methemoglobin 1.3 % (0-2) 08/10/18 11:54 Magdiel Test Present 12/28/17 11:54 Hemoglobin 11.2 G/DL (12.0-16.0) L 12/28/17 11:54 Carboxyhemoglobin 1.2 % (0-4) 12/28/17 11:54 O2 Delivery Device Ventilator 12/28/17 11:54 Liter Flow 15.00 L/M 12/27/17 22:48 Vent Setting 14/600/1.0/+5 12/28/17 11:54 Inspired O2 40 % 12/28/17 11:54 Critical Value Yes 12/28/17 11:54 Sodium 133 meq/L (136-145) L 12/28/17 08:30 Potassium 4.6 meq/L (3.5-5.1) 12/28/17 08:30 Chloride 92 meq/L (98-107) L 12/28/17 08:30 Carbon Dioxide 34.2 meq/L (21.0-32.0) H 12/28/17 08:30 Anion Gap 7 meq/L (5-15) 12/28/17 08:30 BUN 44 mg/dL (7-18) H 12/28/17 08:30 Creatinine 2.54 mg/dL (0.50-1.00) H 12/28/17 08:30 Estimated GFR 20 mL/min (>89) L 12/28/17 08:30 POC Glucose 271 mg/dl (68-110) H 12/28/17 12:28 Random Glucose 272 mg/dL (74-106) H 12/28/17 08:30 Hemoglobin A1c 8.6 % (4.3-6.0) H 12/20/17 08:25 Calcium 8.6 mg/dL (8.5-10.1) 12/28/17 08:30 Magnesium 1.9 mg/dL (1.5-2.5) 12/21/17 02:29 Total Bilirubin 0.5 mg/dL (0.2-1.0) 12/27/17 21:41 AST 60 U/L (15-37) H 12/27/17 21:41 ALT 35 U/L (10-53) 12/27/17 21:41 Alkaline Phosphatase 124 U/L (45-117) H 12/27/17 21:41 Total Creatine Kinase 290 U/L (26-192) H 12/20/17 08:25 CK-MB (CK-2) 6.5 ng/mL (0.5-3.6) H 12/20/17 08:25 CK-MB (CK-2) % 2.2 % (0.0-4.0) 12/20/17 08:25 Troponin I Less than 0.02 ng/mL (0.02-0.05) L 12/21/17 02:29 B-Natriuretic Peptide 31 pg/mL (0-100) 12/20/17 08:25 Total Protein 6.9 g/dL (6.4-8.2) 12/27/17 21:41 Albumin 2.9 g/dL (3.4-5.0) L 12/27/17 21:41 Lipase 132 U/L (73-393) 12/20/17 08:25 Urine Color Cristal (Yellw/Straw) 12/28/17 06:10 Urine Clarity Cloudy (Clear) H 12/28/17 06:10 Urine pH 5.0 (5.0-8.5) 12/28/17 06:10 Ur Specific [place] 1.045 (1.002-1.035) H 12/28/17 06:10 Urine Protein 30 mg/dL (Neg-Trace) H 12/28/17 06:10 Urine Glucose (UA) Negative mg/dL (Negative) 12/28/17 06:10 Urine Ketones Negative mg/dL (Negative) 12/28/17 06:10 Urine Occult Blood Moderate (Negative) H 12/28/17 06:10 Urine Nitrate Negative (Negative) 12/28/17 06:10 Urine Bilirubin Negative (Negative) 12/28/17 06:10 Urine Urobilinogen 4 or greater mg/dL (Less than 2) 12/28/17 06:10 Ur Leukocyte Esterase Moderate (Negative) H 12/28/17 06:10 Urine RBC 13 /hpf (0-3) H 12/28/17 06:10 Urine WBC /hpf (0-5) 12/28/17 06:10 Urine WBC Clumps Many (None) H 12/28/17 06:10 Ur Squamous Epith Cells 1 /hpf (0-5) 12/28/17 06:10 Urine Bacteria Many /hpf (None) H 12/28/17 06:10 Hyaline Casts 6 /lpf (0-3) 12/28/17 06:10 Granular Casts 11 /lpf (None) 12/28/17 06:10 Urine Mucus Few /lpf (Occasional) H 12/28/17 06:10 Micro UA Comment Culture indicated 12/28/17 06:10 Urine Culture Comments Culture indicated 12/28/17 06:10 Nasal Screen MRSA (PCR) Not detected (Negative) 12/27/17 21:15 Blood Type A Positive 12/27/17 17:50 Antibody Screen Negative 12/27/17 17:50 MTS Gel Crossmatch See Detail 12/27/17 17:50 Bld Prod Order Comment 12/27/17 17:50 Results - Labs 12/28/17 08:30 12/28/17 08:30 Abnormal lab results 12/27/17 12/27/17 12/27/17 Range/Units 17:50 17:50 17:50 WBC 14.6 H (4.0-11.0) th/mm3 RBC 3.93 L (4.00-5.30) mil/mm3 MPV 11.4 H (7.0-11.0) fL Neut % (Auto) 80.7 H (16.0-70.0) % Lymph % (Auto) 7.0 L (9.0-44.0) % Clay % (Auto) 10.9 H (0.0-8.0) % Neut # (Auto) 11.8 H (1.8-7.7) th/mm3 Lymph # (Auto) (1.0-4.8) th/mm3 [place] # (Auto) 1.6 H (0.0-0.9) th/mm3 O2 Saturation (90-100) % ABG pH (7.380-7.420) ABG pCO2 (38-42) mmHg ABG pO2 (61-120) mmHG ABG HCO3 (22-26) mmol/L ABG Base Excess (-2-2) mmol/L Hemoglobin (12.0-16.0) G/DL Sodium 132 L (136-145) meq/L Chloride 91 L (98-107) meq/L Carbon Dioxide 34.4 H (21.0-32.0) meq/L BUN 36 H (7-18) mg/dL Creatinine 2.29 H (0.50-1.00) mg/dL Estimated GFR 22 L (>89) mL/min POC Glucose (68-110) mg/dl Random Glucose 232 H (74-106) mg/dL AST (15-37) U/L Alkaline Phosphatase (45-117) U/L Albumin (3.4-5.0) g/dL Urine Clarity (Clear) Ur Specific [place] (1.002-1.035) Urine Protein (Neg-Trace) mg/dL Urine Occult Blood (Negative) Ur Leukocyte Esterase (Negative) Urine RBC (0-3) /hpf Urine WBC Clumps (None) Urine Bacteria (None) /hpf Urine Mucus (Occasional) /lpf MTS Gel Crossmatch See Detail 12/27/17 12/27/17 12/27/17 Range/Units 19:22 19:28 21:41 WBC (4.0-11.0) th/mm3 RBC (4.00-5.30) mil/mm3 MPV (7.0-11.0) fL Neut % (Auto) (16.0-70.0) % Lymph % (Auto) (9.0-44.0) % Clay % (Auto) (0.0-8.0) % Neut # (Auto) (1.8-7.7) th/mm3 Lymph # (Auto) (1.0-4.8) th/mm3 [place] # (Auto) (0.0-0.9) th/mm3 O2 Saturation (90-100) % ABG pH (7.380-7.420) ABG pCO2 56 H* (38-42) mmHg ABG pO2 (61-120) mmHG ABG HCO3 33 H (22-26) mmol/L ABG Base Excess 8.2 H (-2-2) mmol/L Hemoglobin (12.0-16.0) G/DL Sodium 133 L (136-145) meq/L Chloride 93 L (98-107) meq/L Carbon Dioxide 32.9 H (21.0-32.0) meq/L BUN 38 H (7-18) mg/dL Creatinine 2.23 H (0.50-1.00) mg/dL Estimated GFR 23 L (>89) mL/min POC Glucose 299 H (68-110) mg/dl Random Glucose 257 H (74-106) mg/dL AST 60 H (15-37) U/L Alkaline Phosphatase 124 H (45-117) U/L Albumin 2.9 L (3.4-5.0) g/dL Urine Clarity (Clear) Ur Specific [place] (1.002-1.035) Urine Protein (Neg-Trace) mg/dL Urine Occult Blood (Negative) Ur Leukocyte Esterase (Negative) Urine RBC (0-3) /hpf Urine WBC Clumps (None) Urine Bacteria (None) /hpf Urine Mucus (Occasional) /lpf MTS Gel Crossmatch 12/27/17 12/27/17 12/28/17 Range/Units 21:59 22:48 06:10 WBC (4.0-11.0) th/mm3 RBC (4.00-5.30) mil/mm3 MPV (7.0-11.0) fL Neut % (Auto) (16.0-70.0) % Lymph % (Auto) (9.0-44.0) % Clay % (Auto) (0.0-8.0) % Neut # (Auto) (1.8-7.7) th/mm3 Lymph # (Auto) (1.0-4.8) th/mm3 [place] # (Auto) (0.0-0.9) th/mm3 O2 Saturation (90-100) % ABG pH (7.380-7.420) ABG pCO2 53 H* (38-42) mmHg ABG pO2 (61-120) mmHG ABG HCO3 32 H (22-26) mmol/L ABG Base Excess 7.3 H (-2-2) mmol/L Hemoglobin 11.9 L (12.0-16.0) G/DL Sodium (136-145) meq/L Chloride (98-107) meq/L Carbon Dioxide (21.0-32.0) meq/L BUN (7-18) mg/dL Creatinine (0.50-1.00) mg/dL Estimated GFR (>89) mL/min POC Glucose 284 H (68-110) mg/dl Random Glucose (74-106) mg/dL AST (15-37) U/L Alkaline Phosphatase (45-117) U/L Albumin (3.4-5.0) g/dL Urine Clarity Cloudy H (Clear) Ur Specific [place] 1.045 H (1.002-1.035) Urine Protein 30 H (Neg-Trace) mg/dL Urine Occult Blood Moderate H (Negative) Ur Leukocyte Esterase Moderate H (Negative) Urine RBC 13 H (0-3) /hpf Urine WBC Clumps Many H (None) Urine Bacteria Many H (None) /hpf Urine Mucus Few H (Occasional) /lpf MTS Gel Crossmatch 12/28/17 12/28/17 12/28/17 Range/Units 08:30 08:30 11:54 WBC 13.6 H (4.0-11.0) th/mm3 RBC 3.99 L (4.00-5.30) mil/mm3 MPV 11.5 H (7.0-11.0) fL Neut % (Auto) 80.4 H (16.0-70.0) % Lymph % (Auto) 6.5 L (9.0-44.0) % Clay % (Auto) 12.7 H (0.0-8.0) % Neut # (Auto) 11.0 H (1.8-7.7) th/mm3 Lymph # (Auto) 0.9 L (1.0-4.8) th/mm3 [place] # (Auto) 1.7 H (0.0-0.9) th/mm3 O2 Saturation 88 L* (90-100) % ABG pH 7.45 H (7.380-7.420) ABG pCO2 47 H (38-42) mmHg ABG pO2 57 L* (61-120) mmHG ABG HCO3 31 H (22-26) mmol/L ABG Base Excess 7.2 H (-2-2) mmol/L Hemoglobin 11.2 L (12.0-16.0) G/DL Sodium 133 L (136-145) meq/L Chloride 92 L (98-107) meq/L Carbon Dioxide 34.2 H (21.0-32.0) meq/L BUN 44 H (7-18) mg/dL Creatinine 2.54 H (0.50-1.00) mg/dL Estimated GFR 20 L (>89) mL/min POC Glucose (68-110) mg/dl Random Glucose 272 H (74-106) mg/dL AST (15-37) U/L Alkaline Phosphatase (45-117) U/L Albumin (3.4-5.0) g/dL Urine Clarity (Clear) Ur Specific [place] (1.002-1.035) Urine Protein (Neg-Trace) mg/dL Urine Occult Blood (Negative) Ur Leukocyte Esterase (Negative) Urine RBC (0-3) /hpf Urine WBC Clumps (None) Urine Bacteria (None) /hpf Urine Mucus (Occasional) /lpf MTS Gel Crossmatch 12/28/17 Range/Units 12:28 WBC (4.0-11.0) th/mm3 RBC (4.00-5.30) mil/mm3 MPV (7.0-11.0) fL Neut % (Auto) (16.0-70.0) % Lymph % (Auto) (9.0-44.0) % [place] % (Auto) (0.0-8.0) % Neut # (Auto) (1.8-7.7) th/mm3 Lymph # (Auto) (1.0-4.8) th/mm3 [place] # (Auto) (0.0-0.9) th/mm3 O2 Saturation (90-100) % ABG pH (7.380-7.420) ABG pCO2 (38-42) mmHg ABG pO2 (61-120) mmHG ABG HCO3 (22-26) mmol/L ABG Base Excess (-2-2) mmol/L Hemoglobin (12.0-16.0) G/DL Sodium (136-145) meq/L Chloride (98-107) meq/L Carbon Dioxide (21.0-32.0) meq/L BUN (7-18) mg/dL Creatinine (0.50-1.00) mg/dL Estimated GFR (>89) mL/min POC Glucose 271 H (68-110) mg/dl Random Glucose (74-106) mg/dL AST (15-37) U/L Alkaline Phosphatase (45-117) U/L Albumin (3.4-5.0) g/dL Urine Clarity (Clear) Ur Specific [place] (1.002-1.035) Urine Protein (Neg-Trace) mg/dL Urine Occult Blood (Negative) Ur Leukocyte Esterase (Negative) Urine RBC (0-3) /hpf Urine WBC Clumps (None) Urine Bacteria (None) /hpf Urine Mucus (Occasional) /lpf MTS Gel Crossmatch Diabetes panel 12/27/17 12/27/17 12/28/17 Range/Units 17:50 21:41 08:30 Sodium 132 L 133 L 133 L (136-145) meq/L Potassium 4.3 4.9 4.6 (3.5-5.1) meq/L Chloride 91 L 93 L 92 L (98-107) meq/L Carbon Dioxide 34.4 H 32.9 H 34.2 H (21.0-32.0) meq/L BUN 36 H 38 H 44 H (7-18) mg/dL Creatinine 2.29 H 2.23 H 2.54 H (0.50-1.00) mg/dL Calcium 8.6 8.6 8.6 (8.5-10.1) mg/dL AST 60 H (15-37) U/L ALT 35 (10-53) U/L Alkaline Phosphatase 124 H (45-117) U/L Total Protein 6.9 (6.4-8.2) g/dL Albumin 2.9 L (3.4-5.0) g/dL Calcium panel 12/27/17 12/27/17 12/28/17 Range/Units 17:50 21:41 08:30 Calcium 8.6 8.6 8.6 (8.5-10.1) mg/dL Albumin 2.9 L (3.4-5.0) g/dL Pituitary panel 12/27/17 12/27/17 12/28/17 Range/Units 17:50 21:41 08:30 Sodium 132 L 133 L 133 L (136-145) meq/L Potassium 4.3 4.9 4.6 (3.5-5.1) meq/L Chloride 91 L 93 L 92 L (98-107) meq/L Carbon Dioxide 34.4 H 32.9 H 34.2 H (21.0-32.0) meq/L BUN 36 H 38 H 44 H (7-18) mg/dL Creatinine 2.29 H 2.23 H 2.54 H (0.50-1.00) mg/dL Calcium 8.6 8.6 8.6 (8.5-10.1) mg/dL Adrenal panel 12/27/17 12/27/17 12/28/17 Range/Units 17:50 21:41 08:30 Sodium 132 L 133 L 133 L (136-145) meq/L Potassium 4.3 4.9 4.6 (3.5-5.1) meq/L Chloride 91 L 93 L 92 L (98-107) meq/L Carbon Dioxide 34.4 H 32.9 H 34.2 H (21.0-32.0) meq/L BUN 36 H 38 H 44 H (7-18) mg/dL Creatinine 2.29 H 2.23 H 2.54 H (0.50-1.00) mg/dL Calcium 8.6 8.6 8.6 (8.5-10.1) mg/dL Total Bilirubin 0.5 (0.2-1.0) mg/dL AST 60 H (15-37) U/L ALT 35 (10-53) U/L Alkaline Phosphatase 124 H (45-117) U/L Total Protein 6.9 (6.4-8.2) g/dL Albumin 2.9 L (3.4-5.0) g/dL All other labs normal. - Imaging CT scan - abdomen: report reviewed, image reviewed CT scan - pelvis: report reviewed, image reviewed Additional studies: Reviewed EGD colonoscopy report IMPRESSIONS: 1. Esophagitis distal esophagus- ischemic chanhes of gastric wall involving fundus and body-greater curvature -biopsy rest stomach normal 2. Retroflexed views revealed a hiatal hernia COLON FINDINGS: Diverticulosis sigmoid,descending ischemic colitis in right colon, cecum cecum not very dilated bowel looks viable overall. A rectal tube was left in place. Retroflexed views revealed internal hemorrhoids The scope was then completely withdrawn from the patient and the procedure terminated. Assessment and Plan - Plan At this time with her clinical condition I do not see any operative intervention that would benefit this patient. She has a whole list of comorbidities that put her at risk for any surgical intervention. Apparently she did not tolerate the EGD very well and required mechanical ventilation. At this time I would recommend maximal medical therapy to treat her gastritis and esophagitis Consider palliative care I discussed this with Dr. Quiros critical care Discussed Condition With: Dr. Quiros critical care Discharge Planning: None at this time - Attending Attestation NOTE FOR SURGICAL ATTENDING, DR. ZACHARY MORIN I attest that I had a [id number] encounter with the patient on the same day, and personally performed and documented my assessment and findings in the medical record. The following services were provided during this hospital visit: Chart data review, vital sign assessments/reviewing monitor data Review of consultations notes if present. Medication orders/review and/or management Ordering and/or reviewing lab tests Ordering and/or interpreting/reviewing x-rays and/or diagnostic studies Care of the patient and discussion of the patient with the care team Documentation time To help prompt me to consider important information that might be impacting today's encounter and assessment, Information from prior notes written by myself or my colleagues may have been "brought forward/copy and pasted" into today's note.
--- NOTE | 2017-12-28 16:08 | P.CONPAL ---
Consult Service: Palliative Care Requesting Physician: Nicholas Menjivar Reason for Consult: a. To assist with evaluation and management of symptoms including: pain; dyspnea; constipation b. To assist medical decision maker(s) with: better understanding of current medical conditions; weighing benefits/burdens of medical treatment options; making medical treatment decisions. Primary Care Provider: Radha Hernandez History of Present Illness History of Present Illness: Ms. Mace is a 57 y/o female with a known past history of non-ischemic cardiomyopathy s/p ICD placement; astham; morbid obesity; chronic lymphedema; atria fibrillation; diabetes mellitus; hyperlipidemia; hypthyroidism; benign lung mass (s/p excision) Psoriasis; TIA; CKD; and sleep apnea who activated EMS on 12/20/17 because she just didn't feel right. She was initially unable to describe what was wrong. When pressed, she spoke of chest pains which began earlier the same morning accompanied by increased shortness of breath. The patient reportedly is normally on home O2 at 5 L/min. Patient was also complaining of a painful infection of the left great toe. She also indicated she was recovering from an upper respiratory infection. She had been having approximately 2 weeks of cough. She was placed on antibiotics but these were discontinued secondary to gastrointestinal upset. Patient has reportedly been bedbound for approximately one year and has been unable to follow up with her physicians due to inability to get through the door. Patient reported that she has a loose lead on her defibrillator. She has been on home 02 at 5 L /min since about 2003. She has never been a smoker, but has asthma and sleep disordered breathing. Patient was seen in the emergency department where she was an extremely poor historian and not answering the majority of questions asked. Initial vital signs in the emergency department revealed the following: Temperature 98.2; heart rate 52; respiratory rate 18; blood pressure 121/66; pulse oximetry 100% Initial physical examination by the emergency repair department manager noted the following: Patient noted to be quite obese and was in mild to moderate respiratory distress. There was a paced cardiac rhythm of 83. Respiratory exam revealed no use of accessory muscles. Breath sounds were equal bilaterally. Chronic left foot wound was noted. Initial diagnostic studies revealed the following: * CBC showed WBC 8.0; hemoglobin 12.7; platelet count 218 * Coagulation profile showed PT 11.8; INR 1.2; PTT 29.4 * Arterial blood gases on O2 at 2 L a minute showed pH 7.58; PCO2 36; PO2 147; bicarbonate 34; base excess 11 * Chemistry panel showed sodium 136; potassium 3.0; chloride 90; CO2 33.5; anion gap 13; BUN 13; creatinine 0.97; GFR 60; glucose 184; calcium 9.3 * Liver function studies showed bilirubin 0.6; AST 23; ALT 17; alkaline phosphatase 152; total protein 7.8; albumin 3.6 * Lipase within normal limits at 132; * Cardiac serology showed total CK 290; CK-MB 6.5; CK-MB percent 2.2; troponin less than 0.02; B-type natriuretic peptide 31 * Chest x-ray showed no focal or acute pulmonary infiltrate. * EKG showed a paced rhythm. Patient was admitted to rule out acute coronary syndrome with serial troponins and serial EKGs. She was not felt to be in acute CHF and home medications were continued in that regard. She was admitted to the hospitalist service. Cardiology was consulted. The patient was pain-free when cardiology examined her. The patient once again expressed concern about pacemaker function. Apparently the pacemaker had been interrogated and appeared to be functioning properly. Serial troponins and EKGs did not suggest her pains were of ischemic origin. Patient subsequently confided that she was having trouble with ongoing constipation and had not had a bowel movement in 19 days in spite of multiple laxatives at home. Abdominal film was ordered which revealed gas and stool scattered throughout a normal caliber:. There is a focal area of moderate stool volume in the hepatic flexure. No dilated loops of large or small bowel were noted. No gross organomegaly was noted. X-ray of the infected toe showed focal soft tissue swelling of the fourth toe. The underlying bony structures appeared intact. Podiatry was consulted. Podiatry noted that the left fourth and fifth digits had partially deroofed bullae to the entire digits. Upon removal of tissue with the civil structural engineer felt the underlying tissue was viable with no evidence of necrosis. Fluid in the bullae appeared to be clear without evidence of infection or foul odor. Podiatry recommended only Betadine wet to dry dressings to the toes for 7 days. On the afternoon of 12/27/17 the patient complained of burping and bloating. Shortly thereafter she had an episode of coffee ground emesis. Her Eliquis was held. She was typed and crossed. GI consult was ordered. CT of the Abdomen/pelvis showed: Abdomen/Pelvis CT 12/27/17 14:34 CONCLUSION: 1. Colonic distention with a large amount of stool as described, features most typical of a nonmechanical obstruction. 2. Gastric distention without a perceptible mass. A stricture in the region of the gastric antrum with the in the differential. Duodenum is decompressed. 3. There are scattered low-density lesions of the spleen, nonspecific but I believe they were present on the prior studies, just better seen today and probably benign. 4. There is infiltrate in the visualized right lung base. Her proton pump inhibitor was changed from oral to IV. Fleets enema and mag citrate was ordered. She was given magnesium citrate and enemas. Later that evening the rapid response team was activated when the patient's nurse noted she was difficult to arouse. The patient was found to be hypotensive with altered mental status. The patient was given a fluid bolus with some improvement of blood pressure. Increasing oxygen requirements were noted. She was transferred to the intensive care unit. Critical care was consulted. She was treated with empiric antibiotics for possible aspiration. There was difficulty passing an NG tube due to nasal surgery deformities. The patient underwent panendoscopy this morning. Dust Collector Ore Crushing noted the following findings. COLON FINDINGS: Diverticulosis sigmoid,descending ischemic colitis in right colon, cecum cecum not very dilated bowel looks viable overall. A rectal tube was left in place. Retroflexed views revealed internal hemorrhoids EGD Findings: IMPRESSIONS: 1. Esophagitis distal esophagus- ischemic chanhes of gastric wall involving fundus and body-greater curvature -biopsy rest stomach normal 2. Retroflexed views revealed a hiatal hernia RECOMMENDATIONS: Ngt to suction protonix drip iv antibiotics general surgery/vascular surgery consult - will see supportive care poor prognosis doppler us of SMA bedside, angiogram if renal function permits -we will await recommendations from vascular surgery consider palliative care consult discussed with disbursing agent The patient became hypotensive with the procedure. Vascular surgery was consulted. Dr. Coronel did not feel she was a candidate for any type of vacular procedure and recommended general surgery. General surgery was consulted. It appears the general surgeon felt the bleeding was more likely due to gastritis and esophagitis than ischemia. In any event, given she had become severly hypotensive with the panendoscopy, he did not feel she was an operative candidate. . 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 Family noted a significant decline after she underwent the excision of a benign lung mass. She had another decline she did not recover from when she fell and fractured an ankle. THough never a smoker, she has been on 02 since around 2003. She has been followed by cardiology for years for a non-ischemic cardiomyopathy for which an AICD was placed and then replaced two more times. Patient has active psoriasis which has been bothersome. More recently, she has developed some blistering lesions over her right breast and on her toes. The toes have not looked good for about 2 weeks. She has become completely bedbound over the last year. There has been a doctor who comes to the home periodically. There are CNAs helping most days. Family takes over in the evenings and nights changing her diapers, cleaning her, turning her, etc. The patient has a bed trapeze and can reposition herself. There has been no noted cognitive decline. She routinely does all the bills, keeps on top of the families schedules and appointments, and helps prepare meals while in bed. Family believes she has lost about 100 lbs (there is a bed scale) over the last 7 months. she stopped drinking 2 L bottles of sweetened soft drinks which probably made a difference. Complete ROS done with patient's partner, The following were noted and other systems negative: * Psoriasis in the ears and nose can impact hearing and smell. * No chronic pain. * Constipation has been a significant problem for the weeks leading up to the hospitalization. * No prior bleeding noted from GI tract or elsewhere. * No syncope. * Urine output has been good -- now dysuria or hematuria or foul smelling urine. Family History * Mother is alive at age 82. Has "braces" on both legs for unknown reasons. * Father of an CT * One brother of CHF * One brother is [facility] bound due to advanced heart disease * One brother lives at home but has bad heart disease. Substance use: * Never smoked * Casual EtOH use in past. No hx of abuse. Nothing alcoholic for 15 years. * No illicits. . Review of Systems Patient is unable to provide her own ROS. Multi-system ROS obtained from the medical record and from her partner -- Inder. ROS negative except for those items mentioned in the HPI. . [facility] - History History Provided By: Patient - Medical History Medical History: Medical History (Last Updated 12/28/17 @ 18:59 by Salomon Beltre MD) TIA (transient ischemic attack) (Resolved) Sleep disorder breathing (Chronic) Atrial fibrillation (Chronic) Psoriasis (Chronic) Non-ischemic cardiomyopathy (Chronic) Hypothyroid (Chronic) Diabetes (Chronic) CHF (congestive heart failure) COPD (chronic obstructive pulmonary disease) Hyperlipemia Hypertension - Surgical History Surgical History: Surgical History (Last Reviewed 12/28/17 @ 15:57 by Zachary Morin MD) Pacemaker (Acute) - Family History Family History: Family History (Last Updated 12/28/17 @ 18:30 by Salomon Beltre MD) Father Heart disease Brother Heart disease Brother Heart disease Brother Heart disease - Tobacco History Second Hand Smoke Exposure: No Smoking Status: Never smoker - Alcohol History How Often Do You Have a Drink Containing Alcohol: Monthly or less - Substance Use History Substance History: No History of Abuse - Travel History Recent Travel in the [place] Within the Last 8 Weeks: No Recent Travel Out of the Country Within the Last 8 Weeks: No - Immunization History Tetanus Immunization: <5 Years Hx Influenza Vaccine This Season: Yes Medications and Allergies Active Medications: Active Medications Acetaminophen (Tylenol) 650 mg PO Q4H PRN PRN Reason: Headache, fever, pain 1-5 Last Admin: 12/27/17 06:28 Dose: 650 mg Hydrocodone Bitart/Acetaminophen (Hycet 325/7.5 Mg Liq) 10 ml NG/OG Q4H PRN PRN Reason: PAIN SCALE 7 TO 10 SEVERE Last Admin: 12/22/17 05:33 Dose: 10 ml Al Hydroxide/Mg Hydroxide (Milk Of Magnesia Liq) 30 ml PO Q12H PRN PRN Reason: Mild Constipation Last Admin: 12/22/17 09:23 Dose: 30 ml Albuterol (Duoneb Neb (Prn)) 1 ampul NEB Q2HR NEB PRN PRN Reason: SOB/ Dyspnea Last Admin: 12/27/17 16:57 Dose: 1 ampul Albuterol (Duoneb Neb (Hans)) 1 ampul NEB Q4HR NEB HANS Last Admin: 12/28/17 11:45 Dose: 1 ampul Alprazolam (Xanax) 0.5 mg PO TID PRN PRN Reason: Anxiety Last Admin: 12/27/17 10:25 Dose: 0.5 mg Bisacodyl (Dulcolax Supp) 10 mg RECTAL DAILY PRN PRN Reason: SEVERE CONSITIPATION Budesonide/Formoterol Fumarate (Symbicort 160/4.5 Mcg Inh) 2 puff INH BID [facility] Last Admin: 12/27/17 21:52 Dose: Not Given Dextrose (D50w Vial) 50 ml IV.PUSH UNSCH PRN PRN Reason: PER HYPOGLYCEMIA PROTOCOL Diphenhydramine HCl (Benadryl Liq) 12.5 mg PO Q6H PRN PRN Reason: itching Gabapentin (Neurontin) 600 mg PO TID [facility] Last Admin: 12/28/17 13:37 Dose: Not Given Glucagon (Glucagon Inj) 1 mg OTHER PRN PRN PRN Reason: for Hypoglycemia Protocol Guaifenesin (Robitussin Liq) 20 mg PO Q6H PRN PRN Reason: CHEST CONGESTION Sodium Chloride (Ns Inj) 1,000 mls @ 100 mls/hr IV.CONT .Q10H [facility] Last Admin: 12/27/17 18:01 Dose: 42 mls/hr Ceftriaxone Sodium 2,000 mg/ (Sodium Chloride) 100 mls @ 200 mls/hr IV.SIG Q24H [facility] Last Infusion: 12/28/17 07:33 Dose: Infused Metronidazole/Sodium Chloride (Flagyl 500 Mg Inj) 100 mls @ 100 mls/hr IV.SIG Q8H [facility] Last Admin: 12/28/17 13:36 Dose: Not Given Fentanyl (Fentanyl 10 Mcg/Ml Premix Drip) 2,500 mcg in 250 mls @ 5 mls/hr IV.SIG TITRATE PRN; Protocol PRN Reason: Per Protocol Insulin Human Regular (Novolin R Correctional Sugar Inj) 0 units SQ Q4HR [facility]; Protocol Last Admin: 12/28/17 13:38 Dose: Not Given Lactulose (Lactulose Liq) 30 ml PO DAILY PRN PRN Reason: SEVERE CONSITIPATION Last Admin: 12/23/17 21:52 Dose: 30 ml Ondansetron HCl (Zofran Inj) 4 mg IV.PUSH Q6H PRN PRN Reason: NAUSEA Last Admin: 12/28/17 00:27 Dose: 4 mg Pantoprazole Sodium (Protonix Inj) 40 mg IV.PUSH Q12HR [facility] Last Admin: 12/27/17 23:40 Dose: Not Given Linaclotide [Linzess (] 72 Mcg) 72 each PO DAILY [facility] Polyethylene Glycol (Miralax) 17 gm PO DAILY [facility] Last Admin: 12/28/17 13:37 Dose: Not Given Prochlorperazine Edisylate (Compazine Inj) 5 mg IV.PUSH Q4H PRN PRN Reason: NAUSEA OR VOMITING Last Admin: 12/28/17 05:33 Dose: 5 mg Sacubitril/Valsartan (Entresto 49 Mg/51 Mg) 1 tab PO BID [facility] Last Admin: 12/23/17 00:31 Dose: Not Given Sennosides (Senokot) 17.2 mg PO Q12H PRN PRN Reason: Moderate Constipation Sodium Chloride (Ns Flush) 2 ml IV.FLUSH UNSCH PRN PRN Reason: FLUSH AFTER USING IV ACCESS Allergies Allergy/AdvReac Type Severity Reaction Status Date / Time codeine Allergy Severe ITCH, Verified 12/25/17 23:09 starts to close throat sodium hypochlorite solution Allergy Severe Anaphylaxis Verified 12/25/17 23:09 amoxicillin Allergy Mild Diarrhea Verified 12/25/17 23:09 clavulanic acid Allergy Mild Diarrhea,na Verified 12/25/17 23:09 usea *MDRO Multi-Drug Resistant AdvReac Unknown Swelling Uncoded 12/20/17 08:09 Organism Home Medications Medication Instructions Recorded Confirmed Type albuterol sulfate [Ventolin HFA] 1 puff INHALATION Q4-6H PRN 12/20/17 12/20/17 History alprazolam [Xanax] 0.5 mg PO TID PRN 12/20/17 12/20/17 History amlodipine 5 mg PO DAILY 12/20/17 12/20/17 History apixaban [Eliquis] 5 mg PO BID 12/20/17 12/20/17 History furosemide [Lasix] 80 mg PO DAILY 12/20/17 12/20/17 History gabapentin 600 mg PO TID 12/20/17 12/20/17 History hydrocortisone 1 applic TOPICAL BID 12/20/17 12/20/17 History linaclotide [Linzess] 72 mcg PO DAILY 12/20/17 12/20/17 History pantoprazole [Protonix] 40 mg PO DAILY 12/20/17 12/20/17 History potassium chloride 10 meq PO BID 12/20/17 12/20/17 History promethazine 12.5 mg PO Q6H PRN 12/20/17 12/20/17 History sacubitril-valsartan [Entresto] 1 tab PO BID 12/20/17 12/20/17 History sulfamethoxazole-trimethoprim 1 tab PO BID 12/20/17 12/20/17 History [Bactrim DS] Advance Directives Living Will: No Healthcare Surrogate: No Power of Flight Crew Scheduler: No Documented care wishes: No written documentation of health care goals/preferences . Today's verbally stated goals: Patient is unable to verbally express her health care goals/preferences ,. Family/friends goals: Her partner -- Inder -- feels she would want to continue fighting at this time as she has been quite ill in the past, has fought, and has returned to a quality of life that gave her meaning and purose. He knows she would not want to live out her days in a [facility]. He knows that if the doctors felt strongly that ongoing aggressive care would only serve to prolong the dying process then she probably would not want it. . Ethical and Legal Issues: Mother would be the appropriate health care proxy under [place] statutes. . Physical Exam Vital Signs: Vital Signs - 24 hr 12/27/17 16:00 12/27/17 16:59 12/27/17 19:20 Temperature 97.4 F L Pulse Rate 71 70 Respiratory Rate 17 16 Blood Pressure 85/50 L Pulse Oximetry 90 L 91 L 12/27/17 20:00 12/28/17 00:00 12/28/17 02:00 Temperature 97.4 F L 97.2 F L Pulse Rate 73 74 74 Respiratory Rate 25 H 26 H Blood Pressure 105/58 L 110/67 Pulse Oximetry 92 L 100 12/28/17 04:00 12/28/17 06:00 12/28/17 08:00 Temperature 97.0 F L Pulse Rate 74 76 70 Respiratory Rate 26 H Blood Pressure 92/64 L Pulse Oximetry 98 12/28/17 08:15 12/28/17 08:30 12/28/17 08:45 Temperature 98.2 F Pulse Rate 98 H 82 82 Respiratory Rate 20 22 20 Blood Pressure 121/60 134/57 L 117/55 L Pulse Oximetry 87 L 96 95 12/28/17 09:00 12/28/17 09:15 12/28/17 09:30 Temperature Pulse Rate 84 84 82 Respiratory Rate 22 22 22 Blood Pressure 104/75 108/49 L 101/55 L Pulse Oximetry 92 L 90 L 90 L 12/28/17 10:00 12/28/17 11:46 Temperature Pulse Rate 82 70 Respiratory Rate 20 14 Blood Pressure 91/51 L Pulse Oximetry 92 L 91 L . I&O: Intake & Output 12/26/17 12/27/17 12/28/17 12/29/17 06:59 06:59 06:59 06:59 Intake Total 120 / 120 1140 / 1140 400 / 400 600 / 600 Output Total 125 / 125 2650 / 2650 100 / 100 Balance 120 / 120 1015 / 1015 -2250 / -2250 500 / 500 Weight 166.8 kg 166.8 kg Physical Exam: CONSTITUTIONAL/GENERAL: This is a morbidly obese patient, intubated and mechanically ventilated in an MICU bed. She opens eyes briefly to stimulation, but quickly drifts back to sleep. TUBES/LINES/DRAINS: Orotracheal tube; nasogastric tube; lau catheter SKIN: No jaundice. Psoriatic plaques. Unroofed bullae on toes. Skin temperature appropriate. Not diaphoretic. HEAD: Atraumatic. Normocephalic. EYES: Pupils equal and round and reactive. Extraocular motions intact. No scleral icterus. No injection or drainage. Fundi not examined. ENT: Unable to evaluate hearing. Nose without bleeding or purulent drainage. Throat without visible erythema, exudates, masses, or lesions though difficlut to fully visualize due to intubation. NECK: Trachea midline. Obese and difficult to examine. No palpable thyroid enlargement or nodularity. CARDIOVASCULAR: Paced rhythm without murmurs, gallops, or rubs. No JVD. Peripheral pulses symmetric very difficult to palpate due to level of obesity. RESPIRATORY/CHEST: Symmetric, unlabored respirations. Clear to auscultation. Breath sounds equal bilaterally but quite distant. No wheezes, rales, or rhonchi. GASTROINTESTINAL: Abdomen morbidly obese with large panniculus. Soft, no obvious tenderness. No hepato-splenomegaly, or palpable masses but VERY difficult to assess due to level of obesity. No guarding. Bowel sounds present. GENITOURINARY: Without palpable bladder distension. Lau catheter in place. MUSCULOSKELETAL: Extremities without clubbing, cyanosis. Edema noted in feet. No mottling. LYMPHATICS: No palpable cervical or supraclavicular adenopathy. NEUROLOGICAL: Awake and alert. Motor and sensory grossly within normal limits. Follows commands. Cognitively sharp. Moves all extremities. PSYCHIATRIC: No obvious anxiety/depression. no apparent hallucinations or other psychotic thought process. Diagnostic Tests Laboratory: Laboratory Results - last 72 hr 12/25/17 12/25/17 12/26/17 17:50 20:02 07:48 WBC RBC Hgb Hct MCV MCH MCHC RDW Plt Count MPV Neut % (Auto) Lymph % (Auto) [place] % (Auto) Eos % (Auto) Baso % (Auto) Neut # (Auto) Lymph # (Auto) [place] # (Auto) Eos # (Auto) Baso # (Auto) WBC Differential Differential Comment PT INR Puncture Site Patient Temperature O2 Saturation ABG pH ABG pCO2 ABG pO2 ABG HCO3 ABG O2 Content ABG Base Excess ABG Methemoglobin Magdiel Test Hemoglobin Carboxyhemoglobin O2 Delivery Device Liter Flow Vent Setting Inspired O2 Critical Value Sodium Potassium Chloride Carbon Dioxide Anion Gap BUN Creatinine Estimated GFR POC Glucose 198 H 271 H 198 H Random Glucose Calcium Total Bilirubin AST ALT Alkaline Phosphatase Total Protein Albumin Urine Color Urine Clarity Urine pH Ur Specific [place] Urine Protein Urine Glucose (UA) Urine Ketones Urine Occult Blood Urine Nitrate Urine Bilirubin Urine Urobilinogen Ur Leukocyte Esterase Urine RBC Urine WBC Urine WBC Clumps Ur Squamous Epith Cells Urine Bacteria Hyaline Casts Granular Casts Urine Mucus Micro UA Comment Urine Culture Comments Nasal Screen MRSA (PCR) Blood Type Antibody Screen MTS Gel Crossmatch Bld Prod Order Comment 12/26/17 12/26/17 12/26/17 11:53 16:26 20:24 WBC RBC Hgb Hct MCV MCH MCHC RDW Plt Count MPV Neut % (Auto) Lymph % (Auto) [place] % (Auto) Eos % (Auto) Baso % (Auto) Neut # (Auto) Lymph # (Auto) [place] # (Auto) Eos # (Auto) Baso # (Auto) WBC Differential Differential Comment PT INR Puncture Site Patient Temperature O2 Saturation ABG pH ABG pCO2 ABG pO2 ABG HCO3 ABG O2 Content ABG Base Excess ABG Methemoglobin Magdiel Test Hemoglobin Carboxyhemoglobin O2 Delivery Device Liter Flow Vent Setting Inspired O2 Critical Value Sodium Potassium Chloride Carbon Dioxide Anion Gap BUN Creatinine Estimated GFR POC Glucose 232 H 207 H 209 H Random Glucose Calcium Total Bilirubin AST ALT Alkaline Phosphatase Total Protein Albumin Urine Color Urine Clarity Urine pH Ur Specific [place] Urine Protein Urine Glucose (UA) Urine Ketones Urine Occult Blood Urine Nitrate Urine Bilirubin Urine Urobilinogen Ur Leukocyte Esterase Urine RBC Urine WBC Urine WBC Clumps Ur Squamous Epith Cells Urine Bacteria Hyaline Casts Granular Casts Urine Mucus Micro UA Comment Urine Culture Comments Nasal Screen MRSA (PCR) Blood Type Antibody Screen MTS Gel Crossmatch Bld Prod Order Comment 12/27/17 12/27/17 12/27/17 08:51 12:05 17:50 WBC 14.6 H RBC 3.93 L Hgb 11.8 Hct 36.1 MCV 91.9 MCH 30.0 MCHC 32.7 RDW 14.4 Plt Count 162 MPV 11.4 H Neut % (Auto) 80.7 H Lymph % (Auto) 7.0 L [place] % (Auto) 10.9 H Eos % (Auto) 0.9 Baso % (Auto) 0.5 Neut # (Auto) 11.8 H Lymph # (Auto) 1.0 [place] # (Auto) 1.6 H Eos # (Auto) 0.1 Baso # (Auto) 0.1 WBC Differential . Differential Comment Auto diff final PT INR Puncture Site Patient Temperature O2 Saturation ABG pH ABG pCO2 ABG pO2 ABG HCO3 ABG O2 Content ABG Base Excess ABG Methemoglobin Magdiel Test Hemoglobin Carboxyhemoglobin O2 Delivery Device Liter Flow Vent Setting Inspired O2 Critical Value Sodium Potassium Chloride Carbon Dioxide Anion Gap BUN Creatinine Estimated GFR POC Glucose 216 H 261 H Random Glucose Calcium Total Bilirubin AST ALT Alkaline Phosphatase Total Protein Albumin Urine Color Urine Clarity Urine pH Ur Specific [place] Urine Protein Urine Glucose (UA) Urine Ketones Urine Occult Blood Urine Nitrate Urine Bilirubin Urine Urobilinogen Ur Leukocyte Esterase Urine RBC Urine WBC Urine WBC Clumps Ur Squamous Epith Cells Urine Bacteria Hyaline Casts Granular Casts Urine Mucus Micro UA Comment Urine Culture Comments Nasal Screen MRSA (PCR) Blood Type Antibody Screen MTS Gel Crossmatch Bld Prod Order Comment 12/27/17 12/27/17 12/27/17 17:50 17:50 17:50 WBC RBC Hgb Hct MCV MCH MCHC RDW Plt Count MPV Neut % (Auto) Lymph % (Auto) [place] % (Auto) Eos % (Auto) Baso % (Auto) Neut # (Auto) Lymph # (Auto) [place] # (Auto) Eos # (Auto) Baso # (Auto) WBC Differential Differential Comment PT 11.0 INR 1.1 Puncture Site Patient Temperature O2 Saturation ABG pH ABG pCO2 ABG pO2 ABG HCO3 ABG O2 Content ABG Base Excess ABG Methemoglobin Magdiel Test Hemoglobin Carboxyhemoglobin O2 Delivery Device Liter Flow Vent Setting Inspired O2 Critical Value Sodium 132 L Potassium 4.3 Chloride 91 L Carbon Dioxide 34.4 H Anion Gap 7 BUN 36 H Creatinine 2.29 H Estimated GFR 22 L POC Glucose Random Glucose 232 H Calcium 8.6 Total Bilirubin AST ALT Alkaline Phosphatase Total Protein Albumin Urine Color Urine Clarity Urine pH Ur Specific [place] Urine Protein Urine Glucose (UA) Urine Ketones Urine Occult Blood Urine Nitrate Urine Bilirubin Urine Urobilinogen Ur Leukocyte Esterase Urine RBC Urine WBC Urine WBC Clumps Ur Squamous Epith Cells Urine Bacteria Hyaline Casts Granular Casts Urine Mucus Micro UA Comment Urine Culture Comments Nasal Screen MRSA (PCR) Blood Type A Positive Antibody Screen Negative MTS Gel Crossmatch See Detail Bld Prod Order Comment 12/27/17 12/27/17 12/27/17 19:22 19:28 21:15 WBC RBC Hgb Hct MCV MCH MCHC RDW Plt Count MPV Neut % (Auto) Lymph % (Auto) [place] % (Auto) Eos % (Auto) Baso % (Auto) Neut # (Auto) Lymph # (Auto) [place] # (Auto) Eos # (Auto) Baso # (Auto) WBC Differential Differential Comment PT INR Puncture Site Right radial Patient Temperature 98.6 O2 Saturation 90 ABG pH 7.39 ABG pCO2 56 H* ABG pO2 65 ABG HCO3 33 H ABG O2 Content 15.4 ABG Base Excess 8.2 H ABG Methemoglobin 0.8 Magdiel Test Present Hemoglobin 12.1 Carboxyhemoglobin 1.4 O2 Delivery Device Nasal cannula Liter Flow 6.00 Vent Setting Inspired O2 21 Critical Value Yes Sodium Potassium Chloride Carbon Dioxide Anion Gap BUN Creatinine Estimated GFR POC Glucose 299 H Random Glucose Calcium Total Bilirubin AST ALT Alkaline Phosphatase Total Protein Albumin Urine Color Urine Clarity Urine pH Ur Specific [place] Urine Protein Urine Glucose (UA) Urine Ketones Urine Occult Blood Urine Nitrate Urine Bilirubin Urine Urobilinogen Ur Leukocyte Esterase Urine RBC Urine WBC Urine WBC Clumps Ur Squamous Epith Cells Urine Bacteria Hyaline Casts Granular Casts Urine Mucus Micro UA Comment Urine Culture Comments Nasal Screen MRSA (PCR) Not detected Blood Type Antibody Screen MTS Gel Crossmatch Bld Prod Order Comment 12/27/17 12/27/17 12/27/17 21:41 21:41 21:59 WBC RBC Hgb 11.9 Hct 37.0 MCV MCH MCHC RDW Plt Count MPV Neut % (Auto) Lymph % (Auto) [place] % (Auto) Eos % (Auto) Baso % (Auto) Neut # (Auto) Lymph # (Auto) [place] # (Auto) Eos # (Auto) Baso # (Auto) WBC Differential Differential Comment PT INR Puncture Site Patient Temperature O2 Saturation ABG pH ABG pCO2 ABG pO2 ABG HCO3 ABG O2 Content ABG Base Excess ABG Methemoglobin Magdiel Test Hemoglobin Carboxyhemoglobin O2 Delivery Device Liter Flow Vent Setting Inspired O2 Critical Value Sodium 133 L Potassium 4.9 Chloride 93 L Carbon Dioxide 32.9 H Anion Gap 7 BUN 38 H Creatinine 2.23 H Estimated GFR 23 L POC Glucose 284 H Random Glucose 257 H Calcium 8.6 Total Bilirubin 0.5 AST 60 H ALT 35 Alkaline Phosphatase 124 H Total Protein 6.9 Albumin 2.9 L Urine Color Urine Clarity Urine pH Ur Specific [place] Urine Protein Urine Glucose (UA) Urine Ketones Urine Occult Blood Urine Nitrate Urine Bilirubin Urine Urobilinogen Ur Leukocyte Esterase Urine RBC Urine WBC Urine WBC Clumps Ur Squamous Epith Cells Urine Bacteria Hyaline Casts Granular Casts Urine Mucus Micro UA Comment Urine Culture Comments Nasal Screen MRSA (PCR) Blood Type Antibody Screen MTS Gel Crossmatch Bld Prod Order Comment 12/27/17 12/28/17 12/28/17 22:48 06:10 08:30 WBC RBC Hgb Hct MCV MCH MCHC RDW Plt Count MPV Neut % (Auto) Lymph % (Auto) [place] % (Auto) Eos % (Auto) Baso % (Auto) Neut # (Auto) Lymph # (Auto) [place] # (Auto) Eos # (Auto) Baso # (Auto) WBC Differential Differential Comment PT INR Puncture Site Left radial Patient Temperature 98.6 O2 Saturation 93 ABG pH 7.40 ABG pCO2 53 H* ABG pO2 81 ABG HCO3 32 H ABG O2 Content 15.5 ABG Base Excess 7.3 H ABG Methemoglobin 1.3 Magdiel Test Present Hemoglobin 11.9 L Carboxyhemoglobin 1.2 O2 Delivery Device Partial-rebreather Liter Flow 15.00 Vent Setting Inspired O2 21 Critical Value Yes Sodium 133 L Potassium 4.6 Chloride 92 L Carbon Dioxide 34.2 H Anion Gap 7 BUN 44 H Creatinine 2.54 H Estimated GFR 20 L POC Glucose Random Glucose 272 H Calcium 8.6 Total Bilirubin AST ALT Alkaline Phosphatase Total Protein Albumin Urine Color Cristal Urine Clarity Cloudy H Urine pH 5.0 Ur Specific [place] 1.045 H Urine Protein 30 H Urine Glucose (UA) Negative Urine Ketones Negative Urine Occult Blood Moderate H Urine Nitrate Negative Urine Bilirubin Negative Urine Urobilinogen 4 or greater Ur Leukocyte Esterase Moderate H Urine RBC 13 H Urine WBC Urine WBC Clumps Many H Ur Squamous Epith Cells 1 Urine Bacteria Many H Hyaline Casts 6 Granular Casts 11 Urine Mucus Few H Micro UA Comment Culture indicated Urine Culture Comments Culture indicated Nasal Screen MRSA (PCR) Blood Type Antibody Screen MTS Gel Crossmatch Bld Prod Order Comment 12/28/17 12/28/17 12/28/17 08:30 11:54 12:28 WBC 13.6 H RBC 3.99 L Hgb 12.0 Hct 36.1 MCV 90.5 MCH 30.1 MCHC 33.3 RDW 14.6 Plt Count 184 MPV 11.5 H Neut % (Auto) 80.4 H Lymph % (Auto) 6.5 L [place] % (Auto) 12.7 H Eos % (Auto) 0.1 Baso % (Auto) 0.3 Neut # (Auto) 11.0 H Lymph # (Auto) 0.9 L [place] # (Auto) 1.7 H Eos # (Auto) 0.0 Baso # (Auto) 0.0 WBC Differential . Differential Comment Auto diff final PT INR Puncture Site Right radial Patient Temperature 98.6 O2 Saturation 88 L* ABG pH 7.45 H ABG pCO2 47 H ABG pO2 57 L* ABG HCO3 31 H ABG O2 Content 13.9 ABG Base Excess 7.2 H ABG Methemoglobin 1.3 Magdiel Test Present Hemoglobin 11.2 L Carboxyhemoglobin 1.2 O2 Delivery Device Ventilator Liter Flow Vent Setting 14/600/1.0/+5 Inspired O2 40 Critical Value Yes Sodium Potassium Chloride Carbon Dioxide Anion Gap BUN Creatinine Estimated GFR POC Glucose 271 H Random Glucose Calcium Total Bilirubin AST ALT Alkaline Phosphatase Total Protein Albumin Urine Color Urine Clarity Urine pH Ur Specific [place] Urine Protein Urine Glucose (UA) Urine Ketones Urine Occult Blood Urine Nitrate Urine Bilirubin Urine Urobilinogen Ur Leukocyte Esterase Urine RBC Urine WBC Urine WBC Clumps Ur Squamous Epith Cells Urine Bacteria Hyaline Casts Granular Casts Urine Mucus Micro UA Comment Urine Culture Comments Nasal Screen MRSA (PCR) Blood Type Antibody Screen MTS Gel Crossmatch Bld Prod Order Comment Result Diagrams: 12/28/17 17:28 12/28/17 17:28 Imaging: Toe X-Ray 12/20/17 00:00 CONCLUSION: Focal soft tissue swelling involving the fourth toe. The underlying bony structures are grossly intact. Chest X-Ray 12/20/17 08:18 CONCLUSION: No focal or acute pulmonary infiltrates. Abdomen X-Ray 12/24/17 00:00 CONCLUSION: Normal bowel gas pattern. Chest X-Ray 12/27/17 00:00 CONCLUSION: Hypoaerated lungs with mild right basilar airspace disease otherwise stable chest. Abdomen/Pelvis CT 12/27/17 14:34 CONCLUSION: 1. Colonic distention with a large amount of stool as described, features most typical of a nonmechanical obstruction. 2. Gastric distention without a perceptible mass. A stricture in the region of the gastric antrum with the in the differential. Duodenum is decompressed. 3. There are scattered low-density lesions of the spleen, nonspecific but I believe they were present on the prior studies, just better seen today and probably benign. 4. There is infiltrate in the visualized right lung base. Abdomen X-Ray 12/27/17 14:39 CONCLUSION: Distended gastrointestinal tract, I believe mostly colonic and of concern for obstruction versus Hallie's. Patient is scheduled for abdomen CT. Venous Doppler Study 12/28/17 00:00 CONCLUSION: 1. Negative for deep venous thrombosis. Abdomen X-Ray 12/28/17 06:00 CONCLUSION: Persistent abnormally dilated segment of colon but overall bowel gas pattern appears less dilated than on the prior study from yesterday. Technique makes it very difficult to assess the overall bowel gas pattern. Suggest continued attention to this at follow-up imaging. Chest X-Ray 12/28/17 10:54 CONCLUSION: Low lung volumes with bibasilar consolidation likely relating to atelectasis. Procedures: EGD 12/28/17 Colonoscopy 12/28/17 Intubation/mechanical ventilation 12/28/17 . Patient/Family Conference Present at Family Conference: Partner -- Inder Ca . Family Conference Time: 55 Family Conference Location: Consult Room Issues Discussed: * Palliative care role, purpose, approach * Additional medical, psychosocial, and spiritual history * Patients general health, functional status, and cognitive changes in the months leading up to the current hospitalization * Family understanding of the current medical problems * Family understanding of prognosis * Patients goals of care as best understood from conversations and/or values * Current medical treatment options and benefits/burdens of those options * Questions answered to the best of my ability * Palliative care contact information provided . Assessment and Plan - Disease Oriented Problem List (1) GI bleed (2) Ischemic colitis (3) Acute kidney injury (4) Paced cardiac rhythm (5) Morbid obesity (6) Diabetes mellitus (7) Bullous eruption, localized (8) TIA (transient ischemic attack) (9) Sleep disorder breathing (10) Atrial fibrillation (11) Psoriasis (12) Non-ischemic cardiomyopathy (13) Hypothyroid (14) Diabetes - Symptom Scale (1) Pain 0-10 Scale: Unable to quantify (2) Dyspnea 0-10 Scale: Unable to quantify (3) Constipation 0-10 Scale: Unable to quantify Pertinent Non-Medical Issues: Psychosocial:Patient is originally from [place], [place]. Has lived in [place] about 20 yrs. College educated. 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 and x 1. Has been with her current unmarried partner -- Inder Ca -- for about 22 years. Has two daughters from first marriage. Izabela Pretty is 31 and per family is challenged -- on , multiple psych hospitalizations for bipolar. Valeria Ca will turn 18 at the end of the month. Patient lives with Inder, two daughters, Izabela's boyfriend, and friend of Valeria Hernandez who they have been helping . Family care of patient is supplemented by daily CNAs. Spiritual: Nondenominational and spirituality have not been an important part of her life. She comes from a Judaism tradition. She prays. Legal: No advance directives. Ethical issues impacting care: No known ethical / legal issues known at this time. . Important Contacts: Aline Mace (mother and proxy per [place] statutes) [phone] Inder Ca (unmarried partner of 22 years ) [phone] . Prognosis: Patient with new GI bleeding possibly due to ischemic bowel has multiple significant underlying co-morbidities including non-ischemic cardiomyopathy; asthma with 02 dependence of 5 L/min for over 10 years; morbid obesity; bedbound status for 1 year; diabetes; etc. She has been evaluated by vascular and general surgery and is not felt to be a surgical candidate. If this is, indeed, ischemia of the GI tract and it is not reversible, is likely to come within days from sepsis regardless or interventions. If this is not ischemia, there is a chance of recovery but she may need to proceed to trach and return to home setting is unlikely. . Code Status: Full Code Plan: == Code Status: FULL CODE == Decision Making: At time of my visit, patient is arousable, but is not capacitated to make her own health care decisions. It is certainly feasible that she will regain capacity. the patient is not legally . She has an adult child (Izabela), but the patient herself has told the nurse that Izabela can not function as a health care proxy because of her own physcial and mental health issues. The other daughter will not be 18 until the end of the month. The patient's mother, then, would be the appropriate health care proxy. Family and myself have been trying to contact her. == Goals of medical treatment: We have not yet been able to contact the patient's mother (proxy). THe patient's wants everything done to prolong life at this time. The patient has said that she does not want to live in a [facility] as one of her brothers currently does. Inder also believes she would not want to continue ongoing aggressive care if the doctors all felt there was over a 95% chance that we were just prolonging an uncomfortable dying process. == Symptoms * Pain: In spite of being bedbound for a year, the patient did not have any real chronic pain problems and rarely complained of pain. Current sources of pain might include: OT tube; NG tube ; lau catheter; vascular access lines, prolonged bedbound status. * Encephalopathy: Probably multi-factorial. * Dyspnea: Has underlying cardiomyopathy and asthma. May have an infection on top of this. Currently being mechanically ventilated. * Constipation: Probably multi-factorial. May be a component of hypothyroidism and/or diabetic gastroparesis. == PLAN * Family and team will continue to try and contact the patient's mother. If she agrees, she would be the legal proxy. she would have to be brought up to date regarding the details of the case and prognosis. * Will need a discussion regarding overall goals; code status; and possible withdrawal of life support once mother is located. * Since goals are aggressive for now, will need to transfuse, dialyze, etc if necessary while family is processing and making decisions. * Should patient become awake and alert enough to make her own decisions, she needs to understand her current condition and limited options. * We will want to minimize sedating medications to give her the best chance of weaning from vent and being able to discuss goals. Hopefully, pain can be controlled with acetaminophen or low dose opioids. Due to declining renal function, would use prn fentanyl if opioids are needed. * She has a history of hypothyroidism -- recommend checking thyroid function as hypothyroidism might have contributed to the prolonged constipation. * Case discussed in person with Dr Menjivar and Dr. Mejias == Palliative care will continue to follow to assist with symptom management and to further clarify goals of medical treatment as the clinical course evolves. Appreciation Thank you for the opportunity to participate in the care of Britt Mace. Attestation Attestation: To help prompt me to consider important information that might be impacting today's encounter and assessment, information from prior notes written by myself or my colleagues may have been "brought forward" into today's note. My signature on this note, however, is an attestation that I personally performed the exam, history, and/or decision-making noted today, and, unless otherwise indicated, the interactions with patient, family, and staff as well as the review of records all occurred today. I also attest that the listed assessment and stated plan reflect my best clinical judgment today based on the combination of historical information, prior notes, and today's exam/ interactions. When time spent is documented, it refers only to time spent today by the signer, or if indicated, combined time spent today by collaborating physician/nurse practitioner.
[2017-12-28] MEDS: Pantoprazole Inj 40 MG Vial IV.PUSH SCH ×2 (16:36→21:14)
[2017-12-28] MEDS: Sod Chloride 0.9% Inj 1,000 ML IV.CONT SCH (16:36)
[2017-12-28] MEDS: Budesonide-Formoterol 160/4.5 MCG 6 GM Inhaler INH SCH ×2 (16:36→21:17)
--- NOTE | 2017-12-28 17:02 | US ---
EXAM DATE: 12/28/2017 4:57 PM EDT AGE/SEX: 57 years / Female INDICATIONS: Bilateral leg swelling. CLINICAL DATA: This is the patient's initial encounter. Patient reports that signs and symptoms have been present for 1 day and indicates a pain score of Nonresponsive. MEDICAL/SURGICAL HISTORY: Hypothyroidism. CHF. COPD. Diabetes. Hyperlipidemia. HTN. Pacemaker. COMPARISON: No prior exams available for comparison. TECHNIQUE: Venous ultrasound of both lower extremities was performed from the inguinal ligament to t he proximal calf. Real-time, color Doppler and spectral tracing, compression and augmentation techni ques were used. FINDINGS: Right Leg: Normal compression of the deep venous system from the inguinal region to the proximal jarrod f. No echogenic clot is seen. Normal response of the venous system to augmentation and respiration. Left Leg: Normal compression of the deep venous system from the inguinal region to the proximal calf . No echogenic clot is seen. Normal response of the venous system to augmentation and respiration. Other: None. CONCLUSION: 1. Negative for deep venous thrombosis. Electronically signed by: Zachary Hudson MD 12/28/2017 5:00 PM EDT
[2017-12-28 17:44] LABS: Baso % (Auto) 0.4 % (0.0-2.0); Eos % (Auto) 0.3 % (0.0-4.0); Hematocrit 33.2 % (35.0-46.0); Hemoglobin 11.2 gm/dL (11.6-15.3); Lymph # (Auto) 0.8 th/mm3 (1.0-4.8); Lymph % (Auto) 7.2 % (9.0-44.0); Mean Corpuscular HGB Conc 33.6 % (32.0-36.0); Mean Corpuscular Hemoglobin 30.4 pg (27.0-34.0); Mean Corpuscular Volume 90.6 fL (80.0-100.0); Mean Platelet Volume 11.5 fL (7.0-11.0); Mono # (Auto) 1.4 th/mm3 (0.0-0.9); Mono % (Auto) 12.7 % (0.0-8.0); Neut # (Auto) 8.9 th/mm3 (1.8-7.7); Neut % (Auto) 79.4 % (16.0-70.0); Platelet Count 152 th/mm3 (150-450); Red Blood Count 3.67 mil/mm3 (4.00-5.30); White Blood Count 11.2 th/mm3 (4.0-11.0)
[2017-12-28 18:10] LABS: Calcium 8.2 mg/dL (8.5-10.1); Carbon Dioxide 31.2 meq/L (21.0-32.0); Potassium 4.1 meq/L (3.5-5.1)
--- NOTE | 2017-12-28 18:41 | P.CONNP ---
<Joyce Senior - Last Filed: 12/28/17 18:41> History of Present Illness Service: Nephrology Primary Care Provider: Radha Hernandez Family Provider: Radha Hernandez Chief Complaint: Chest pain History of Present Illness: This patient is a 57 y/o super morbidly obese female who was admitted on 12/20 initially for chest pain. Her PMH includes HTN, DM, hypothyroidism, COPD, and CHF, and she has been completely bedbound for the last year. She developed renal failure after the , at which time her creatinine was 0.82. It was rechecked on the , when it was 2.2, has increased to 2.54 today. She developed coffee ground emesis in the past few days, was also complaining of abdominal distention with nausea and vomiting. The patient had a CT abd/pelvis with IV contrast yesterday, which showed colonic distention and gastric distention. Overnight she was a Helicat for worsening GI bleed and lethargy, at that time was intubated. Today she had an EGD and a colonoscopy today with Dr. Mejias. That revealed distal esophagitis, ischemic changes of the gastric wall, ischemic colitis in the right colon, and sigmoid diverticulosis. Her BP was low from 8/3 to 8/6, 70s/40s at the lowest, but she is no longer on pressors. Her urine output has been marginal. She is intubated, on 60% FiO2, awake and off sedation. X ray reviewed has right sided infiltrates, possibly aspiration related. She also has a UTI. Her antibiotics include Rocephin and Flagyl. We were consulted for renal management. Review of Systems unobtainable due to endotracheal tube PMFSH - History History Provided By: Patient - Medical / Surgical Hx Neg / Unobtainable Medical Problems Denied: Unable to Obtain - Medical History Medical History: Medical History (Last Updated 12/28/17 @ 18:33 by Salomon Beltre MD) TIA (transient ischemic attack) (Acute) Sleep disorder breathing (Acute) Atrial fibrillation (Acute) Psoriasis (Acute) Non-ischemic cardiomyopathy (Acute) Hypothyroid (Acute) Diabetes (Acute) CHF (congestive heart failure) COPD (chronic obstructive pulmonary disease) Hyperlipemia Hypertension - Surgical History Surgical History: Surgical History (Last Reviewed 12/28/17 @ 15:57 by Zachary Morin MD) Pacemaker (Acute) - Family History Family History: Family History (Last Updated 12/28/17 @ 18:30 by Salomon Beltre MD) Father Heart disease Brother Heart disease Brother Heart disease Brother Heart disease - Tobacco History Second Hand Smoke Exposure: No Smoking Status: Never smoker Tobacco Type: Cigarettes - Alcohol History How Often Do You Have a Drink Containing Alcohol: Monthly or less - Substance Use History Substance History: No History of Abuse - Travel History Recent Travel in the [place] Within the Last 8 Weeks: No Recent Travel Out of the Country Within the Last 8 Weeks: No - Immunization History Tetanus Immunization: <5 Years Hx Influenza Vaccine This Season: Yes Medications and Allergies Allergies Allergy/AdvReac Type Severity Reaction Status Date / Time codeine Allergy Severe ITCH, Verified 12/25/17 23:09 starts to close throat sodium hypochlorite solution Allergy Severe Anaphylaxis Verified 12/25/17 23:09 amoxicillin Allergy Mild Diarrhea Verified 12/25/17 23:09 clavulanic acid Allergy Mild Diarrhea,na Verified 12/25/17 23:09 usea *MDRO Multi-Drug Resistant AdvReac Unknown Swelling Uncoded 12/20/17 08:09 Organism Home Medications Medication Instructions Recorded Confirmed Type albuterol sulfate [Ventolin HFA] 1 puff INHALATION Q4-6H PRN 12/20/17 12/20/17 History alprazolam [Xanax] 0.5 mg PO TID PRN 12/20/17 12/20/17 History amlodipine 5 mg PO DAILY 12/20/17 12/20/17 History apixaban [Eliquis] 5 mg PO BID 12/20/17 12/20/17 History furosemide [Lasix] 80 mg PO DAILY 12/20/17 12/20/17 History gabapentin 600 mg PO TID 12/20/17 12/20/17 History hydrocortisone 1 applic TOPICAL BID 12/20/17 12/20/17 History linaclotide [Linzess] 72 mcg PO DAILY 12/20/17 12/20/17 History pantoprazole [Protonix] 40 mg PO DAILY 12/20/17 12/20/17 History potassium chloride 10 meq PO BID 12/20/17 12/20/17 History promethazine 12.5 mg PO Q6H PRN 12/20/17 12/20/17 History sacubitril-valsartan [Entresto] 1 tab PO BID 12/20/17 12/20/17 History sulfamethoxazole-trimethoprim 1 tab PO BID 12/20/17 12/20/17 History [Bactrim DS] Active Medications: Active Medications Acetaminophen (Tylenol) 650 mg PO Q4H PRN PRN Reason: Headache, fever, pain 1-5 Last Admin: 12/27/17 06:28 Dose: 650 mg Hydrocodone Bitart/Acetaminophen (Hycet 325/7.5 Mg Liq) 10 ml NG/OG Q4H PRN PRN Reason: PAIN SCALE 7 TO 10 SEVERE Last Admin: 12/22/17 05:33 Dose: 10 ml Al Hydroxide/Mg Hydroxide (Milk Of Magnesia Liq) 30 ml PO Q12H PRN PRN Reason: Mild Constipation Last Admin: 12/22/17 09:23 Dose: 30 ml Albuterol (Duoneb Neb (Prn)) 1 ampul NEB Q2HR NEB PRN PRN Reason: SOB/ Dyspnea Last Admin: 12/27/17 16:57 Dose: 1 ampul Albuterol (Duoneb Neb (Hans)) 1 ampul NEB Q4HR NEB HANS Last Admin: 12/28/17 15:47 Dose: 1 ampul Alprazolam (Xanax) 0.5 mg PO TID PRN PRN Reason: Anxiety Last Admin: 12/27/17 10:25 Dose: 0.5 mg Bisacodyl (Dulcolax Supp) 10 mg RECTAL DAILY PRN PRN Reason: SEVERE CONSITIPATION Budesonide/Formoterol Fumarate (Symbicort 160/4.5 Mcg Inh) 2 puff INH BID [facility] Last Admin: 12/28/17 16:36 Dose: Not Given Dextrose (D50w Vial) 50 ml IV.PUSH UNSCH PRN PRN Reason: PER HYPOGLYCEMIA PROTOCOL Diphenhydramine HCl (Benadryl Liq) 12.5 mg PO Q6H PRN PRN Reason: itching Gabapentin (Neurontin) 600 mg PO TID [facility] Last Admin: 12/28/17 16:35 Dose: Not Given Glucagon (Glucagon Inj) 1 mg OTHER PRN PRN PRN Reason: for Hypoglycemia Protocol Guaifenesin (Robitussin Liq) 20 mg PO Q6H PRN PRN Reason: CHEST CONGESTION Sodium Chloride (Ns Inj) 1,000 mls @ 100 mls/hr IV.CONT .Q10H [facility] Last Admin: 12/28/17 16:36 Dose: 42 mls/hr Ceftriaxone Sodium 2,000 mg/ (Sodium Chloride) 100 mls @ 200 mls/hr IV.SIG Q24H [facility] Last Infusion: 12/28/17 07:33 Dose: Infused Metronidazole/Sodium Chloride (Flagyl 500 Mg Inj) 100 mls @ 100 mls/hr IV.SIG Q8H [facility] Last Admin: 12/28/17 18:13 Dose: 100 mls/hr Fentanyl (Fentanyl 10 Mcg/Ml Premix Drip) 2,500 mcg in 250 mls @ 5 mls/hr IV.SIG TITRATE PRN; Protocol PRN Reason: Per Protocol Last Admin: 12/28/17 18:13 Dose: 50 mcg/hr, 5 mls/hr Insulin Human Regular (Novolin R Correctional Sugar Inj) 0 units SQ Q4HR [facility]; Protocol Last Admin: 12/28/17 17:35 Dose: Not Given Lactulose (Lactulose Liq) 30 ml PO DAILY PRN PRN Reason: SEVERE CONSITIPATION Last Admin: 12/23/17 21:52 Dose: 30 ml Ondansetron HCl (Zofran Inj) 4 mg IV.PUSH Q6H PRN PRN Reason: NAUSEA Last Admin: 12/28/17 00:27 Dose: 4 mg Pantoprazole Sodium (Protonix Inj) 40 mg IV.PUSH Q12HR [facility] Last Admin: 12/28/17 16:36 Dose: Not Given Linaclotide [Linzess (] 72 Mcg) 72 each PO DAILY [facility] Polyethylene Glycol (Miralax) 17 gm PO DAILY [facility] Last Admin: 12/28/17 13:37 Dose: Not Given Prochlorperazine Edisylate (Compazine Inj) 5 mg IV.PUSH Q4H PRN PRN Reason: NAUSEA OR VOMITING Last Admin: 12/28/17 05:33 Dose: 5 mg Sacubitril/Valsartan (Entresto 49 Mg/51 Mg) 1 tab PO BID [facility] Last Admin: 12/23/17 00:31 Dose: Not Given Sennosides (Senokot) 17.2 mg PO Q12H PRN PRN Reason: Moderate Constipation Sodium Chloride (Ns Flush) 2 ml IV.FLUSH UNSCH PRN PRN Reason: FLUSH AFTER USING IV ACCESS Exam Vital signs: Vital Signs 12/27/17 19:20 12/27/17 20:00 12/28/17 00:00 Temperature 97.4 F L 97.2 F L Pulse Rate 73 74 Respiratory Rate 25 H 26 H Blood Pressure 105/58 L 110/67 Pulse Oximetry 91 L 92 L 100 12/28/17 02:00 12/28/17 04:00 12/28/17 06:00 Temperature 97.0 F L Pulse Rate 74 74 76 Respiratory Rate 26 H Blood Pressure 92/64 L Pulse Oximetry 98 12/28/17 08:00 12/28/17 08:15 12/28/17 08:30 Temperature 98.2 F Pulse Rate 70 98 H 82 Respiratory Rate 20 22 Blood Pressure 121/60 134/57 L Pulse Oximetry 87 L 96 12/28/17 08:45 12/28/17 09:00 12/28/17 09:15 Temperature Pulse Rate 82 84 84 Respiratory Rate 20 22 22 Blood Pressure 117/55 L 104/75 108/49 L Pulse Oximetry 95 92 L 90 L 12/28/17 09:30 12/28/17 10:00 12/28/17 11:46 Temperature Pulse Rate 82 82 70 Respiratory Rate 22 20 14 Blood Pressure 101/55 L 91/51 L Pulse Oximetry 90 L 92 L 91 L 12/28/17 12:00 12/28/17 14:00 12/28/17 14:27 Temperature Pulse Rate 73 73 67 Respiratory Rate 20 Blood Pressure Pulse Oximetry 97 12/28/17 14:31 12/28/17 14:36 12/28/17 14:41 Temperature Pulse Rate 67 68 67 Respiratory Rate 19 22 21 Blood Pressure 96/54 L 105/54 L 118/55 L Pulse Oximetry 98 98 98 12/28/17 14:46 12/28/17 14:51 12/28/17 14:55 Temperature Pulse Rate 67 67 67 Respiratory Rate 16 16 20 Blood Pressure 92/54 L 98/56 L 103/59 L Pulse Oximetry 97 97 97 12/28/17 15:00 12/28/17 15:01 12/28/17 15:05 Temperature Pulse Rate 68 68 68 Respiratory Rate 17 16 37 H Blood Pressure 104/51 L 108/56 L Pulse Oximetry 97 97 100 12/28/17 15:10 12/28/17 15:15 12/28/17 15:20 Temperature Pulse Rate 68 69 69 Respiratory Rate 18 17 19 Blood Pressure 104/59 L 106/62 103/57 L Pulse Oximetry 100 100 100 12/28/17 15:25 12/28/17 15:31 12/28/17 15:36 Temperature Pulse Rate 35 L 70 36 L Respiratory Rate 14 18 18 Blood Pressure 106/63 105/56 L 113/57 L Pulse Oximetry 100 100 100 12/28/17 15:41 12/28/17 15:43 12/28/17 15:45 Temperature Pulse Rate 72 71 Respiratory Rate 17 14 18 Blood Pressure 112/55 L 105/58 L Pulse Oximetry 100 95 96 12/28/17 15:47 12/28/17 15:50 12/28/17 15:55 Temperature Pulse Rate 73 74 74 Respiratory Rate 22 16 15 Blood Pressure 109/59 L 107/61 Pulse Oximetry 95 95 12/28/17 16:00 12/28/17 16:06 12/28/17 16:10 Temperature Pulse Rate 74 72 72 Respiratory Rate 19 19 15 Blood Pressure 107/59 L 96/55 L 99/57 L Pulse Oximetry 95 99 96 12/28/17 16:16 12/28/17 16:20 12/28/17 16:26 Temperature Pulse Rate 74 73 74 Respiratory Rate 16 21 14 Blood Pressure 96/64 L 98/57 L 89/54 L Pulse Oximetry 96 96 96 12/28/17 16:30 12/28/17 16:36 12/28/17 18:00 Temperature Pulse Rate 73 74 74 Respiratory Rate 22 21 Blood Pressure 93/53 L 93/53 L Pulse Oximetry 95 96 Intake & Output 12/27/17 12/28/17 12/28/17 18:59 06:59 18:59 Intake Total 300 / 300 100 / 100 2100 / 2100 Output Total 200 / 200 2450 / 2450 2200 / 2200 Balance 100 / 100 -2350 / -2350 -100 / -100 Weight 197 kg Intake: IV 100 / 100 1100 / 1100 NS Inj 1,000 ML @ 100 mls/hr IV 1000 / 1000 .CONT .Q10H [facility] Rx#:[id number] Rocephin Inj 2,000 MG In NS Inj 100 / 100 100 ML @ 200 mls/hr IV.SIG Q24H [facility] Rx#:[id number] Flagyl 500 MG Inj 100 ML @ 100 100 / 100 mls/hr IV.SIG Q8H [facility] Rx#: [id number] Oral 300 / 300 0 / 0 0 / 0 Anesthesia Amount 1000 / 1000 Output: Urine 200 / 200 0 / 0 Emesis 1500 / 1500 1500 / 1500 Urine Amount (Catheter) 450 / 450 500 / 500 Indwelling Urethral Catheter 450 / 450 500 / 500 Gastric Drainage 500 / 500 200 / 200 Oral Orogastric Tube 500 / 500 200 / 200 Other: # Voids 1 Date of Last Bowel Movement 12/24/17 12/27/17 12/28/17 # Bowel Movements 1 1 # Emeses 4 5 5 - Constitutional no acute distress, morbidly obese Comments: intubated, eyes open, responds - Routine Neck Exam Present: supple, full ROM - Routine Respiratory Exam Present: patient mechanically ventilated, crackles, distant breath sounds, diminished air movement - Routine Cardiovascular Exam Present: RRR, S1, S2 - Routine Abdominal Exam Present: soft, normoactive bowel sounds Comments: NG tube - Routine Extremities Exam Present: edema, pulses intact - Routine Skin Exam Present: intact, dry, warm - Routine Neurological Exam Present: CN II-XII intact, moving all extremities - Routine Psychiatric Exam Present: unable to assess Results - Lab Results 12/28/17 17:28 12/28/17 17:28 Most recent lab results ABG pH 7.45 (7.380-7.420) H 12/28/17 11:54 ABG pCO2 47 mmHg (38-42) H 12/28/17 11:54 ABG pO2 57 mmHG (61-120) L* 12/28/17 11:54 ABG HCO3 31 mmol/L (22-26) H 12/28/17 11:54 Calcium 8.2 mg/dL (8.5-10.1) L 12/28/17 17:28 Magnesium 1.9 mg/dL (1.5-2.5) 12/21/17 02:29 - Image Kidney/bladder ultrasound: other (CT reviewed ) Assessment and Plan - Assessment (1) Acute renal failure Code(s): N17.9 - Acute kidney failure, unspecified Status: Acute Plan: Normal renal function at baseline. MARÍA ELENA most likely due to renal hypoperfusion secondary to hypotension, also infection/sepsis syndrome; may have suffered ATN Renal function has declined, and urine output is marginal On IVF, NS @ 100 cc/hr Continue to monitor renal indices Avoid nephrotoxic agents Lasix, Entresto, and KCL are held. Avoid hypotension, use pressors if needed On Rocephin for UTI Repeat labs daily, obtain phosphorus level in AM (2) Diabetes mellitus Code(s): E11.9 - Type 2 diabetes mellitus without complications Status: Acute Plan: Maintain glucose 140-180mg/dL (3) Non-ischemic cardiomyopathy Code(s): I42.8 - Other cardiomyopathies Status: Acute Plan: Monitor fluid status Has AICD/PPM in place (4) Ischemic colitis Code(s): K55.9 - Vascular disorder of intestine, unspecified Status: Acute Plan: GI is following s/p colonic decompression, EGD NG tube in place <Seferino Guzman - Last Filed: 12/29/17 09:15> History of Present Illness Primary Care Provider: Radha Hernandez Family Provider: Radha Hernandez [facility] - Medical History Medical History: Medical History (Last Updated 12/28/17 @ 18:33 by Salomon Beltre MD) TIA (transient ischemic attack) (Acute) Sleep disorder breathing (Acute) Atrial fibrillation (Acute) Psoriasis (Acute) Non-ischemic cardiomyopathy (Acute) Hypothyroid (Acute) Diabetes (Acute) CHF (congestive heart failure) COPD (chronic obstructive pulmonary disease) Hyperlipemia Hypertension - Surgical History Surgical History: Surgical History (Last Reviewed 12/28/17 @ 15:57 by Zachary Morin MD) Pacemaker (Acute) - Family History Family History: Family History (Last Updated 12/28/17 @ 18:30 by Salomon Beltre MD) Father Heart disease Brother Heart disease Brother Heart disease Brother Heart disease Medications and Allergies Active Medications: Active Medications Acetaminophen (Tylenol) 650 mg PO Q4H PRN PRN Reason: Headache, fever, pain 1-5 Last Admin: 12/27/17 06:28 Dose: 650 mg Hydrocodone Bitart/Acetaminophen (Hycet 325/7.5 Mg Liq) 10 ml NG/OG Q4H PRN PRN Reason: PAIN SCALE 7 TO 10 SEVERE Last Admin: 12/22/17 05:33 Dose: 10 ml Al Hydroxide/Mg Hydroxide (Milk Of Magnesia Liq) 30 ml PO Q12H PRN PRN Reason: Mild Constipation Last Admin: 12/22/17 09:23 Dose: 30 ml Albuterol (Duoneb Neb (Prn)) 1 ampul NEB Q2HR NEB PRN PRN Reason: SOB/ Dyspnea Last Admin: 12/27/17 16:57 Dose: 1 ampul Albuterol (Duoneb Neb (Hans)) 1 ampul NEB Q4HR NEB [facility] Last Admin: 12/29/17 07:54 Dose: 1 ampul Alprazolam (Xanax) 0.5 mg PO TID PRN PRN Reason: Anxiety Last Admin: 12/27/17 10:25 Dose: 0.5 mg Bisacodyl (Dulcolax Supp) 10 mg RECTAL DAILY PRN PRN Reason: SEVERE CONSITIPATION Budesonide/Formoterol Fumarate (Symbicort 160/4.5 Mcg Inh) 2 puff INH BID [facility] Last Admin: 12/28/17 21:17 Dose: Not Given Dextrose (D50w Vial) 50 ml IV.PUSH UNSCH PRN PRN Reason: PER HYPOGLYCEMIA PROTOCOL Diphenhydramine HCl (Benadryl Liq) 12.5 mg PO Q6H PRN PRN Reason: itching Gabapentin (Neurontin) 600 mg PO TID [facility] Last Admin: 12/28/17 16:35 Dose: Not Given Glucagon (Glucagon Inj) 1 mg OTHER PRN PRN PRN Reason: for Hypoglycemia Protocol Guaifenesin (Robitussin Liq) 20 mg PO Q6H PRN PRN Reason: CHEST CONGESTION Sodium Chloride (Ns Inj) 1,000 mls @ 100 mls/hr IV.CONT .Q10H [facility] Last Admin: 12/28/17 16:36 Dose: 42 mls/hr Ceftriaxone Sodium 2,000 mg/ (Sodium Chloride) 100 mls @ 200 mls/hr IV.SIG Q24H [facility] Last Admin: 12/28/17 23:56 Dose: 200 mls/hr Metronidazole/Sodium Chloride (Flagyl 500 Mg Inj) 100 mls @ 100 mls/hr IV.SIG Q8H [facility] Last Admin: 12/29/17 08:22 Dose: 100 mls/hr Fentanyl (Fentanyl 10 Mcg/Ml Premix Drip) 2,500 mcg in 250 mls @ 5 mls/hr IV.SIG TITRATE PRN; Protocol PRN Reason: Per Protocol Last Titration: 12/29/17 08:39 Dose: 25 mcg/hr, 2.5 mls/hr Sodium Chloride (Ns Inj) 1,000 mls @ 100 mls/hr IV.CONT .Q10H [facility] Last Admin: 12/29/17 01:59 Dose: 100 mls/hr Insulin Human Regular (Novolin R Correctional Sugar Inj) 0 units SQ Q4HR [facility]; Protocol Last Admin: 12/29/17 08:23 Dose: Not Given Lactulose (Lactulose Liq) 30 ml PO DAILY PRN PRN Reason: SEVERE CONSITIPATION Last Admin: 12/23/17 21:52 Dose: 30 ml Ondansetron HCl (Zofran Inj) 4 mg IV.PUSH Q6H PRN PRN Reason: NAUSEA Last Admin: 12/28/17 00:27 Dose: 4 mg Pantoprazole Sodium (Protonix Inj) 40 mg IV.PUSH Q12HR [facility] Last Admin: 12/29/17 08:23 Dose: 40 mg Linaclotide [Linzess (] 72 Mcg) 72 each PO DAILY [facility] Polyethylene Glycol (Miralax) 17 gm PO DAILY [facility] Last Admin: 12/29/17 08:22 Dose: 17 gm Prochlorperazine Edisylate (Compazine Inj) 5 mg IV.PUSH Q4H PRN PRN Reason: NAUSEA OR VOMITING Last Admin: 12/28/17 05:33 Dose: 5 mg Sacubitril/Valsartan (Entresto 49 Mg/51 Mg) 1 tab PO BID [facility] Last Admin: 12/23/17 00:31 Dose: Not Given Sennosides (Senokot) 17.2 mg PO Q12H PRN PRN Reason: Moderate Constipation Sodium Chloride (Ns Flush) 2 ml IV.FLUSH UNSCH PRN PRN Reason: FLUSH AFTER USING IV ACCESS Last Admin: 12/28/17 21:14 Dose: 2 ml Exam Vital signs: Vital Signs 12/28/17 09:15 12/28/17 09:30 12/28/17 10:00 Temperature Pulse Rate 84 82 82 Respiratory Rate 22 22 20 Blood Pressure 108/49 L 101/55 L 91/51 L Pulse Oximetry 90 L 90 L 92 L 12/28/17 11:46 12/28/17 12:00 12/28/17 14:00 Temperature Pulse Rate 70 73 73 Respiratory Rate 14 Blood Pressure Pulse Oximetry 91 L 12/28/17 14:27 12/28/17 14:31 12/28/17 14:36 Temperature Pulse Rate 67 67 68 Respiratory Rate 20 19 22 Blood Pressure 96/54 L 105/54 L Pulse Oximetry 97 98 98 12/28/17 14:41 12/28/17 14:46 12/28/17 14:51 Temperature Pulse Rate 67 67 67 Respiratory Rate 21 16 16 Blood Pressure 118/55 L 92/54 L 98/56 L Pulse Oximetry 98 97 97 12/28/17 14:55 12/28/17 15:00 12/28/17 15:01 Temperature Pulse Rate 67 68 68 Respiratory Rate 20 17 16 Blood Pressure 103/59 L 104/51 L Pulse Oximetry 97 97 97 12/28/17 15:05 12/28/17 15:10 12/28/17 15:15 Temperature Pulse Rate 68 68 69 Respiratory Rate 37 H 18 17 Blood Pressure 108/56 L 104/59 L 106/62 Pulse Oximetry 100 100 100 12/28/17 15:20 12/28/17 15:25 12/28/17 15:31 Temperature Pulse Rate 69 35 L 70 Respiratory Rate 19 14 18 Blood Pressure 103/57 L 106/63 105/56 L Pulse Oximetry 100 100 100 12/28/17 15:36 12/28/17 15:41 12/28/17 15:43 Temperature Pulse Rate 36 L 72 Respiratory Rate 18 17 14 Blood Pressure 113/57 L 112/55 L Pulse Oximetry 100 100 95 12/28/17 15:45 12/28/17 15:47 12/28/17 15:50 Temperature Pulse Rate 71 73 74 Respiratory Rate 18 22 16 Blood Pressure 105/58 L 109/59 L Pulse Oximetry 96 95 12/28/17 15:55 12/28/17 16:00 12/28/17 16:06 Temperature Pulse Rate 74 74 72 Respiratory Rate 15 19 19 Blood Pressure 107/61 107/59 L 96/55 L Pulse Oximetry 95 95 99 12/28/17 16:10 12/28/17 16:16 12/28/17 16:20 Temperature Pulse Rate 72 74 73 Respiratory Rate 15 16 21 Blood Pressure 99/57 L 96/64 L 98/57 L Pulse Oximetry 96 96 96 12/28/17 16:26 12/28/17 16:30 12/28/17 16:36 Temperature Pulse Rate 74 73 74 Respiratory Rate 14 22 21 Blood Pressure 89/54 L 93/53 L 93/53 L Pulse Oximetry 96 95 96 12/28/17 16:41 12/28/17 16:45 12/28/17 16:53 Temperature Pulse Rate 74 75 75 Respiratory Rate 15 21 18 Blood Pressure 95/54 L 89/56 L 97/54 L Pulse Oximetry 96 96 85 L 12/28/17 18:00 12/28/17 19:37 12/28/17 19:39 Temperature Pulse Rate 80 79 Respiratory Rate 15 15 15 Blood Pressure Pulse Oximetry 94 L 96 12/28/17 20:00 12/28/17 21:18 12/28/17 21:30 Temperature 98.9 F Pulse Rate 78 77 75 Respiratory Rate 21 46 H 16 Blood Pressure 100/59 L 97/55 L Pulse Oximetry 92 L 93 L 93 L 12/28/17 22:00 12/28/17 22:01 12/28/17 22:31 Temperature Pulse Rate 75 74 75 Respiratory Rate 20 14 19 Blood Pressure 98/57 L 97/55 L Pulse Oximetry 94 L 94 L 94 L 12/28/17 23:01 12/28/17 23:31 12/29/17 00:00 Temperature Pulse Rate 74 75 74 Respiratory Rate 15 19 14 Blood Pressure 92/55 L 94/54 L Pulse Oximetry 95 95 95 12/29/17 00:01 12/29/17 00:12 12/29/17 00:14 Temperature 98.4 F Pulse Rate 74 74 Respiratory Rate 14 14 14 Blood Pressure 95/54 L Pulse Oximetry 94 L 94 L 12/29/17 00:31 12/29/17 01:01 12/29/17 01:31 Temperature Pulse Rate 75 76 75 Respiratory Rate 28 H 16 20 Blood Pressure 91/54 L 94/52 L 94/53 L Pulse Oximetry 95 92 L 94 L 12/29/17 02:00 12/29/17 02:01 12/29/17 02:31 Temperature Pulse Rate 74 74 75 Respiratory Rate 22 44 H 23 Blood Pressure 91/55 L 90/50 L Pulse Oximetry 95 95 95 12/29/17 03:01 12/29/17 03:31 12/29/17 03:35 Temperature Pulse Rate 74 73 77 Respiratory Rate 44 H 17 14 Blood Pressure 91/50 L 85/51 L Pulse Oximetry 97 97 97 12/29/17 04:00 12/29/17 04:08 12/29/17 04:09 Temperature 98.8 F Pulse Rate 72 71 70 Respiratory Rate 21 15 16 Blood Pressure 69/45 L 68/41 L Pulse Oximetry 95 94 L 95 12/29/17 04:11 12/29/17 04:31 12/29/17 04:34 Temperature Pulse Rate 70 73 73 Respiratory Rate 19 17 15 Blood Pressure 68/40 L 82/50 L 79/52 L Pulse Oximetry 95 97 95 12/29/17 04:44 12/29/17 04:45 12/29/17 05:00 Temperature Pulse Rate 74 74 76 Respiratory Rate 15 21 17 Blood Pressure 85/50 L 85/53 L 95/54 L Pulse Oximetry 99 98 99 12/29/17 05:16 12/29/17 06:00 12/29/17 07:47 Temperature Pulse Rate 76 76 Respiratory Rate 18 14 Blood Pressure 100/51 L Pulse Oximetry 99 93 L 12/29/17 07:55 Temperature Pulse Rate 85 Respiratory Rate 14 Blood Pressure Pulse Oximetry Intake & Output 12/28/17 12/29/17 12/29/17 18:59 06:59 18:59 Intake Total 2100 / 2100 200 / 200 Output Total 2700 / 2700 550 / 550 Balance -600 / -600 -350 / -350 Weight 201.4 kg Intake: IV 1100 / 1100 200 / 200 NS Inj 1,000 ML @ 100 mls/hr IV 1000 / 1000 .CONT .Q10H [facility] Rx#:[id number] Rocephin Inj 2,000 MG In NS Inj 100 / 100 100 ML @ 200 mls/hr IV.SIG Q24H [facility] Rx#:[id number] Flagyl 500 MG Inj 100 ML @ 100 200 / 200 mls/hr IV.SIG Q8H [facility] Rx#: [id number] Oral 0 / 0 0 / 0 Anesthesia Amount 1000 / 1000 Output: Urine 0 / 0 Emesis 1500 / 1500 Urine Amount (Catheter) 500 / 500 350 / 350 Indwelling Urethral Catheter 500 / 500 350 / 350 Gastric Drainage 700 / 700 200 / 200 Nasogastric Tube 500 / 500 200 / 200 Oral Orogastric Tube 200 / 200 0 / 0 Other: # Voids 1 Date of Last Bowel Movement 12/28/17 12/28/17 # Bowel Movements 1 # Emeses 5 Results - Lab Results 12/29/17 03:45 12/29/17 03:45 Most recent lab results ABG pH 7.42 (7.380-7.420) 12/28/17 19:51 ABG pCO2 47 mmHg (38-42) H 12/28/17 19:51 ABG pO2 86 mmHG (61-120) 12/28/17 19:51 ABG HCO3 30 mmol/L (22-26) H 12/28/17 19:51 Calcium 7.9 mg/dL (8.5-10.1) L 12/29/17 03:45 Phosphorus 4.3 mg/dL (2.5-4.9) 12/29/17 03:45 Magnesium 1.9 mg/dL (1.5-2.5) 12/21/17 02:29 Assessment and Plan - Assessment (1) Acute renal failure Code(s): N17.9 - Acute kidney failure, unspecified Status: Acute (2) Diabetes mellitus Code(s): E11.9 - Type 2 diabetes mellitus without complications Status: Acute (3) Non-ischemic cardiomyopathy Code(s): I42.8 - Other cardiomyopathies Status: Chronic (4) Ischemic colitis Code(s): K55.9 - Vascular disorder of intestine, unspecified Status: Acute - Attending Attestation patient was seen and examined. Agree with above assessment and plan. Prognosis is guarded. Continue IVF for the time being. <Joyce Senior - Last Filed: 12/28/17 18:41> (2) Diabetes mellitus Qualifiers: Diabetes mellitus type: type 2 Diabetes mellitus complication status: with unspecified complications <Seferino Guzman - Last Filed: 12/29/17 09:15> (2) Diabetes mellitus Qualifiers: Diabetes mellitus type: type 2 Diabetes mellitus complication status: with unspecified complications
[2017-12-28 20:03] LABS: ABG Base Excess 5.6 mmol/L (-2-2); ABG PCO2 47 mmHg (38-42); ABG PO2 86 mmHG (61-120)
[2017-12-29] MEDS: Sod Chloride 0.9% Inj 1,000 ML IV.CONT SCH ×3 (01:59→17:00)
[2017-12-29 03:58] LABS: Baso # (Auto) 0.1 th/mm3 (0.0-0.2); Baso % (Auto) 0.9 % (0.0-2.0); Eos # (Auto) 0.1 th/mm3 (0.0-0.4); Hematocrit 32.1 % (35.0-46.0); Hemoglobin 10.5 gm/dL (11.6-15.3); Lymph # (Auto) 1.2 th/mm3 (1.0-4.8); Lymph % (Auto) 10.3 % (9.0-44.0); Mean Corpuscular HGB Conc 32.6 % (32.0-36.0); Mean Corpuscular Hemoglobin 30.1 pg (27.0-34.0); Mean Corpuscular Volume 92.4 fL (80.0-100.0); Mean Platelet Volume 11.3 fL (7.0-11.0); Mono # (Auto) 1.4 th/mm3 (0.0-0.9); Mono % (Auto) 12.7 % (0.0-8.0); Neut # (Auto) 8.5 th/mm3 (1.8-7.7); Neut % (Auto) 75.1 % (16.0-70.0); Platelet Count 159 th/mm3 (150-450); Red Blood Count 3.48 mil/mm3 (4.00-5.30); Red Cell Distribution Width 14.9 % (11.6-17.2); White Blood Count 11.3 th/mm3 (4.0-11.0)
[2017-12-29 04:12] LABS: Albumin 2.5 g/dL (3.4-5.0); Anion Gap 8 meq/L (5-15); Aspartate Aminotransferase 86 U/L (15-37); Blood Urea Nitrogen 51 mg/dL (7-18); Calcium 7.9 mg/dL (8.5-10.1); Carbon Dioxide 32.2 meq/L (21.0-32.0); Chloride 96 meq/L (98-107); Glomerular Filtration Rate 20 mL/min (>89); Glucose,Random 226 mg/dL (74-106); Potassium 4.1 meq/L (3.5-5.1); Sodium 136 meq/L (136-145)
[2017-12-29] MEDS ORDERED: Albumin Human 5% Inj 500 ML IV.SIG ONE (04:12)
[2017-12-29] MEDS ORDERED: Sod Chloride 0.9% Inj 2,000 ML IV.SIG ONE (04:12)
[2017-12-29 04:13] LABS: Alanine Aminotransferase 74 U/L (10-53); Phosphorus 4.3 mg/dL (2.5-4.9)
[2017-12-29 04:16] LABS: Alkaline Phosphatase 108 U/L (45-117); Total Protein 6.3 g/dL (6.4-8.2)
[2017-12-29] MEDS: Insulin NovoLIN Regular Correctional Sugar Inj SQ SCH ×4 (05:37→17:18)
--- NOTE | 2017-12-29 07:09 | P.PNCC ---
Subjective Subjective Remarks/Hospital Course: The patient is a 57-year-old female with multiple medical comorbidities, which include hypertension, diabetes mellitus, morbid obesity, hypothyroidism, COPD, CHF with a previous pacemaker placement, was admitted under hospitalist service on 12/21/2017 for chest pain. During her hospital course, she was seen by cardiology and GI services. The patient went into renal failure on 12/27/2017 where her creatinine increased from 0.97 on arrival to 2.29. She was also complaining of abdominal distention associated with nausea and vomiting. The patient underwent CT abdomen and pelvis yesterday, which showed colonicdistention and gastric distention. She underwentupper endoscopy and a colonoscopy today by Dr. Mejias which showed distal esophagitis, ischemic changes of the gastric wall involving fundus and body, greater curvature in addition to ischemic colitis in the right colon, and sigmoid diverticulosis. Vascular Surgery was consulted. Of note, the patient was on Eliquis 5 mg b.i.d. at home. She remained on mechanical ventilation post-procedure and Critical Care Medicine was consulted for critical care management. Her laboratory today showed worsening renal function with a creatinine of 2.54. When seen, the patient is on full mechanical ventilation. Diuretics were discontinued. 12/29 Patient remains intubated given 2L boluses NS and Albumin overnight for hypotension MAP now 67mmHg. Afebrile. Objective Vital Signs / I&O: Vital Signs 12/28/17 08:00 12/28/17 08:15 12/28/17 08:30 Temperature 98.2 F Pulse Rate 70 98 H 82 Respiratory Rate 20 22 Blood Pressure 121/60 134/57 L Pulse Oximetry 87 L 96 12/28/17 08:45 12/28/17 09:00 12/28/17 09:15 Temperature Pulse Rate 82 84 84 Respiratory Rate 20 22 22 Blood Pressure 117/55 L 104/75 108/49 L Pulse Oximetry 95 92 L 90 L 12/28/17 09:30 12/28/17 10:00 12/28/17 11:46 Temperature Pulse Rate 82 82 70 Respiratory Rate 22 20 14 Blood Pressure 101/55 L 91/51 L Pulse Oximetry 90 L 92 L 91 L 12/28/17 12:00 12/28/17 14:00 12/28/17 14:27 Temperature Pulse Rate 73 73 67 Respiratory Rate 20 Blood Pressure Pulse Oximetry 97 12/28/17 14:31 12/28/17 14:36 12/28/17 14:41 Temperature Pulse Rate 67 68 67 Respiratory Rate 19 22 21 Blood Pressure 96/54 L 105/54 L 118/55 L Pulse Oximetry 98 98 98 12/28/17 14:46 12/28/17 14:51 12/28/17 14:55 Temperature Pulse Rate 67 67 67 Respiratory Rate 16 16 20 Blood Pressure 92/54 L 98/56 L 103/59 L Pulse Oximetry 97 97 97 12/28/17 15:00 12/28/17 15:01 12/28/17 15:05 Temperature Pulse Rate 68 68 68 Respiratory Rate 17 16 37 H Blood Pressure 104/51 L 108/56 L Pulse Oximetry 97 97 100 12/28/17 15:10 12/28/17 15:15 12/28/17 15:20 Temperature Pulse Rate 68 69 69 Respiratory Rate 18 17 19 Blood Pressure 104/59 L 106/62 103/57 L Pulse Oximetry 100 100 100 12/28/17 15:25 12/28/17 15:31 12/28/17 15:36 Temperature Pulse Rate 35 L 70 36 L Respiratory Rate 14 18 18 Blood Pressure 106/63 105/56 L 113/57 L Pulse Oximetry 100 100 100 12/28/17 15:41 12/28/17 15:43 12/28/17 15:45 Temperature Pulse Rate 72 71 Respiratory Rate 17 14 18 Blood Pressure 112/55 L 105/58 L Pulse Oximetry 100 95 96 12/28/17 15:47 12/28/17 15:50 12/28/17 15:55 Temperature Pulse Rate 73 74 74 Respiratory Rate 22 16 15 Blood Pressure 109/59 L 107/61 Pulse Oximetry 95 95 12/28/17 16:00 12/28/17 16:06 12/28/17 16:10 Temperature Pulse Rate 74 72 72 Respiratory Rate 19 19 15 Blood Pressure 107/59 L 96/55 L 99/57 L Pulse Oximetry 95 99 96 12/28/17 16:16 12/28/17 16:20 12/28/17 16:26 Temperature Pulse Rate 74 73 74 Respiratory Rate 16 21 14 Blood Pressure 96/64 L 98/57 L 89/54 L Pulse Oximetry 96 96 96 12/28/17 16:30 12/28/17 16:36 12/28/17 16:41 Temperature Pulse Rate 73 74 74 Respiratory Rate 22 21 15 Blood Pressure 93/53 L 93/53 L 95/54 L Pulse Oximetry 95 96 96 12/28/17 16:45 12/28/17 16:53 12/28/17 18:00 Temperature Pulse Rate 75 75 80 Respiratory Rate 21 18 15 Blood Pressure 89/56 L 97/54 L Pulse Oximetry 96 85 L 94 L 12/28/17 19:37 12/28/17 19:39 12/28/17 20:00 Temperature 98.9 F Pulse Rate 79 78 Respiratory Rate 15 15 21 Blood Pressure Pulse Oximetry 96 92 L 12/28/17 21:18 12/28/17 21:30 12/28/17 22:00 Temperature Pulse Rate 77 75 75 Respiratory Rate 46 H 16 20 Blood Pressure 100/59 L 97/55 L Pulse Oximetry 93 L 93 L 94 L 12/28/17 22:01 12/28/17 22:31 12/28/17 23:01 Temperature Pulse Rate 74 75 74 Respiratory Rate 14 19 15 Blood Pressure 98/57 L 97/55 L 92/55 L Pulse Oximetry 94 L 94 L 95 12/28/17 23:31 12/29/17 00:00 12/29/17 00:01 Temperature 98.4 F Pulse Rate 75 74 74 Respiratory Rate 19 14 14 Blood Pressure 94/54 L 95/54 L Pulse Oximetry 95 95 94 L 12/29/17 00:12 12/29/17 00:14 12/29/17 00:31 Temperature Pulse Rate 74 75 Respiratory Rate 14 14 28 H Blood Pressure 91/54 L Pulse Oximetry 94 L 95 12/29/17 01:01 12/29/17 01:31 12/29/17 02:00 Temperature Pulse Rate 76 75 74 Respiratory Rate 16 20 22 Blood Pressure 94/52 L 94/53 L Pulse Oximetry 92 L 94 L 95 12/29/17 02:01 12/29/17 02:31 12/29/17 03:01 Temperature Pulse Rate 74 75 74 Respiratory Rate 44 H 23 44 H Blood Pressure 91/55 L 90/50 L 91/50 L Pulse Oximetry 95 95 97 12/29/17 03:31 12/29/17 03:35 12/29/17 04:00 Temperature Pulse Rate 73 77 72 Respiratory Rate 17 14 21 Blood Pressure 85/51 L Pulse Oximetry 97 97 95 12/29/17 04:08 12/29/17 04:09 12/29/17 04:11 Temperature 98.8 F Pulse Rate 71 70 70 Respiratory Rate 15 16 19 Blood Pressure 69/45 L 68/41 L 68/40 L Pulse Oximetry 94 L 95 95 12/29/17 04:31 12/29/17 04:34 12/29/17 04:44 Temperature Pulse Rate 73 73 74 Respiratory Rate 17 15 15 Blood Pressure 82/50 L 79/52 L 85/50 L Pulse Oximetry 97 95 99 12/29/17 04:45 12/29/17 05:00 12/29/17 05:16 Temperature Pulse Rate 74 76 76 Respiratory Rate 21 17 18 Blood Pressure 85/53 L 95/54 L 100/51 L Pulse Oximetry 98 99 99 12/29/17 06:00 Temperature Pulse Rate 76 Respiratory Rate Blood Pressure Pulse Oximetry Intake & Output 12/28/17 12/28/17 12/29/17 06:59 18:59 06:59 Intake Total 100 / 100 2100 / 2100 100 / 100 Output Total 2450 / 2450 2700 / 2700 550 / 550 Balance -2350 / -2350 -600 / -600 -450 / -450 Weight 197 kg 201.4 kg Intake: IV 100 / 100 1100 / 1100 100 / 100 NS Inj 1,000 ML @ 100 mls/hr IV 1000 / 1000 .CONT .Q10H ERNESTINA Rx#:[id number] Rocephin Inj 2,000 MG In NS Inj 100 / 100 100 ML @ 200 mls/hr IV.SIG Q24H ERNESTINA Rx#:[id number] Flagyl 500 MG Inj 100 ML @ 100 100 / 100 100 / 100 mls/hr IV.SIG Q8H ERNESTINA Rx#: [id number] Oral 0 / 0 0 / 0 0 / 0 Anesthesia Amount 1000 / 1000 Output: Urine 0 / 0 Emesis 1500 / 1500 1500 / 1500 Urine Amount (Catheter) 450 / 450 500 / 500 350 / 350 Indwelling Urethral Catheter 450 / 450 500 / 500 350 / 350 Gastric Drainage 500 / 500 700 / 700 200 / 200 Nasogastric Tube 500 / 500 200 / 200 Oral Orogastric Tube 500 / 500 200 / 200 0 / 0 Other: # Voids 1 Date of Last Bowel Movement 12/27/17 12/28/17 12/28/17 # Bowel Movements 1 # Emeses 5 5 Result Diagrams: 12/29/17 03:45 12/29/17 03:45 Other Results: Laboratory Results - last 12 hr 12/28/17 12/28/17 12/28/17 19:43 19:51 23:25 WBC RBC Hgb Hct MCV MCH MCHC RDW Plt Count MPV Neut % (Auto) Lymph % (Auto) [place] % (Auto) Eos % (Auto) Baso % (Auto) Neut # (Auto) Lymph # (Auto) [place] # (Auto) Eos # (Auto) Baso # (Auto) WBC Differential Differential Comment Puncture Site Right radial Patient Temperature 98.6 O2 Saturation 94 ABG pH 7.42 ABG pCO2 47 H ABG pO2 86 ABG HCO3 30 H ABG O2 Content 14.6 ABG Base Excess 5.6 H ABG Methemoglobin 1.4 Magdiel Test Present Hemoglobin 11.0 L Carboxyhemoglobin 1.1 O2 Delivery Device Ventilator Vent Setting Prvc/ ac Inspired O2 50 Critical Value No Sodium Potassium Chloride Carbon Dioxide Anion Gap BUN Creatinine Estimated GFR POC Glucose 262 H 252 H Random Glucose Calcium Phosphorus Total Bilirubin AST ALT Alkaline Phosphatase Total Protein Albumin 12/29/17 12/29/17 12/29/17 03:45 03:45 03:59 WBC 11.3 H RBC 3.48 L Hgb 10.5 L Hct 32.1 L MCV 92.4 MCH 30.1 MCHC 32.6 RDW 14.9 Plt Count 159 MPV 11.3 H Neut % (Auto) 75.1 H Lymph % (Auto) 10.3 [place] % (Auto) 12.7 H Eos % (Auto) 1.0 Baso % (Auto) 0.9 Neut # (Auto) 8.5 H Lymph # (Auto) 1.2 [place] # (Auto) 1.4 H Eos # (Auto) 0.1 Baso # (Auto) 0.1 WBC Differential . Differential Comment Auto diff final Puncture Site Patient Temperature O2 Saturation ABG pH ABG pCO2 ABG pO2 ABG HCO3 ABG O2 Content ABG Base Excess ABG Methemoglobin Magdiel Test Hemoglobin Carboxyhemoglobin O2 Delivery Device Vent Setting Inspired O2 Critical Value Sodium 136 Potassium 4.1 Chloride 96 L Carbon Dioxide 32.2 H Anion Gap 8 BUN 51 H Creatinine 2.47 H Estimated GFR 20 L POC Glucose 237 H Random Glucose 226 H Calcium 7.9 L Phosphorus 4.3 Total Bilirubin 0.4 AST 86 H ALT 74 H Alkaline Phosphatase 108 Total Protein 6.3 L D Albumin 2.5 L Imaging: Toe X-Ray 12/20/17 00:00 CONCLUSION: Focal soft tissue swelling involving the fourth toe. The underlying bony structures are grossly intact. Abdomen/Pelvis CT 12/27/17 14:34 CONCLUSION: 1. Colonic distention with a large amount of stool as described, features most typical of a nonmechanical obstruction. 2. Gastric distention without a perceptible mass. A stricture in the region of the gastric antrum with the in the differential. Duodenum is decompressed. 3. There are scattered low-density lesions of the spleen, nonspecific but I believe they were present on the prior studies, just better seen today and probably benign. 4. There is infiltrate in the visualized right lung base. Venous Doppler Study 12/28/17 00:00 CONCLUSION: 1. Negative for deep venous thrombosis. Abdomen X-Ray 12/28/17 06:00 CONCLUSION: Persistent abnormally dilated segment of colon but overall bowel gas pattern appears less dilated than on the prior study from yesterday. Technique makes it very difficult to assess the overall bowel gas pattern. Suggest continued attention to this at follow-up imaging. Chest X-Ray 12/28/17 10:54 CONCLUSION: Low lung volumes with bibasilar consolidation likely relating to atelectasis. Objective Remarks: GENERAL: Patient is 57yo intubated SKIN: Warm and dry. HEAD: Normocephalic. EYES: No scleral icterus. No injection or drainage. NECK: Supple, trachea midline. No JVD or lymphadenopathy. CARDIOVASCULAR: Regular rate and rhythm without murmurs, gallops, or rubs. RESPIRATORY: Breath sounds equal bilaterally. No accessory muscle use. GASTROINTESTINAL: Abdomen soft, non-tender, nondistended. MUSCULOSKELETAL: No cyanosis, + edema. Neuro: Intubated Assessment and Plan - Assessment and Plan Plan: 1. Acute hypoxemic and hypercapnic respiratory failure. 2. Ischemic changes of the gastric wall and descending ischemic colitis in the right colon. 3. Acute renal failure. 4. Hyponatremia. 5. Urinary tract infection. 6. Leukocytosis. 7. History of congestive heart failure. 8. History of chronic obstructive pulmonary disease. 9. Diabetes mellitus. 10. History of hypertension. 11. Morbid obesity. Plan: Neuro: Fentanyl infusion if needed for sedation. Monitor neuro status closely. Pulm: Continue with vent support and maintain sats >92%. Bronchodilators, ICU vent bundle. Decrease FIO2 40%. Check ABG CV: Monitor HR and BP and maintain MAP> 65 mmHg. Lactic acid 1.7. Given additional 2L NS boluses and Albumin overnight. On NS@100ml/hr, check 2D echo to eval LV function : Monitor renal function, I's and O's and avoid nephrotoxins. Renal is following- Dr. Guzman Cr: 2.47 from 2.27. IVF as above GI: Keep n.p.o. on Protonix 40 mg daily for GI prophylaxis. s/p EGD, colonoscopy: ischemic changes of the gastric wall and ischemic colitis of the right colon. GI, Surgery following ID: Continue with abx(Rocephin and Flagyl). Monitor for signs of infections(fever and WBC). Followup on urine culture. Heme: Monitor CBC and coags. Endo: SSI, medium scale with Accu-Cheks q.4 for glycemic control. GI prophylaxis with Protonix DVT prophylaxis with heparin subcutaneously. Doppler US LE negative for DVT 12/28 Palliative Care is following Code status: Full code CCT 30 mins
[2017-12-29] MEDS: Polyethylene Glycol 3350 17 GM Packet PO SCH (08:22)
[2017-12-29] MEDS: Pantoprazole Inj 40 MG Vial IV.PUSH SCH ×2 (08:23→20:00)
[2017-12-29] MEDS: Budesonide-Formoterol 160/4.5 MCG 6 GM Inhaler INH SCH ×2 (10:49→20:01)
--- NOTE | 2017-12-29 11:33 | P.PN ---
Subjective Interval history: Currently on CPAP; going to extubate today potentially. Physical Exam Vital signs: Vital Signs 12/28/17 11:46 12/28/17 12:00 12/28/17 14:00 Temperature Pulse Rate 70 73 73 Respiratory Rate 14 Blood Pressure Pulse Oximetry 91 L 12/28/17 14:27 12/28/17 14:31 12/28/17 14:36 Temperature Pulse Rate 67 67 68 Respiratory Rate 20 19 22 Blood Pressure 96/54 L 105/54 L Pulse Oximetry 97 98 98 12/28/17 14:41 12/28/17 14:46 12/28/17 14:51 Temperature Pulse Rate 67 67 67 Respiratory Rate 21 16 16 Blood Pressure 118/55 L 92/54 L 98/56 L Pulse Oximetry 98 97 97 12/28/17 14:55 12/28/17 15:00 12/28/17 15:01 Temperature Pulse Rate 67 68 68 Respiratory Rate 20 17 16 Blood Pressure 103/59 L 104/51 L Pulse Oximetry 97 97 97 12/28/17 15:05 12/28/17 15:10 12/28/17 15:15 Temperature Pulse Rate 68 68 69 Respiratory Rate 37 H 18 17 Blood Pressure 108/56 L 104/59 L 106/62 Pulse Oximetry 100 100 100 12/28/17 15:20 12/28/17 15:25 12/28/17 15:31 Temperature Pulse Rate 69 35 L 70 Respiratory Rate 19 14 18 Blood Pressure 103/57 L 106/63 105/56 L Pulse Oximetry 100 100 100 12/28/17 15:36 12/28/17 15:41 12/28/17 15:43 Temperature Pulse Rate 36 L 72 Respiratory Rate 18 17 14 Blood Pressure 113/57 L 112/55 L Pulse Oximetry 100 100 95 12/28/17 15:45 12/28/17 15:47 12/28/17 15:50 Temperature Pulse Rate 71 73 74 Respiratory Rate 18 22 16 Blood Pressure 105/58 L 109/59 L Pulse Oximetry 96 95 12/28/17 15:55 12/28/17 16:00 12/28/17 16:06 Temperature Pulse Rate 74 74 72 Respiratory Rate 15 19 19 Blood Pressure 107/61 107/59 L 96/55 L Pulse Oximetry 95 95 99 12/28/17 16:10 12/28/17 16:16 12/28/17 16:20 Temperature Pulse Rate 72 74 73 Respiratory Rate 15 16 21 Blood Pressure 99/57 L 96/64 L 98/57 L Pulse Oximetry 96 96 96 12/28/17 16:26 12/28/17 16:30 12/28/17 16:36 Temperature Pulse Rate 74 73 74 Respiratory Rate 14 22 21 Blood Pressure 89/54 L 93/53 L 93/53 L Pulse Oximetry 96 95 96 12/28/17 16:41 12/28/17 16:45 12/28/17 16:53 Temperature Pulse Rate 74 75 75 Respiratory Rate 15 21 18 Blood Pressure 95/54 L 89/56 L 97/54 L Pulse Oximetry 96 96 85 L 12/28/17 18:00 12/28/17 19:37 12/28/17 19:39 Temperature Pulse Rate 80 79 Respiratory Rate 15 15 15 Blood Pressure Pulse Oximetry 94 L 96 12/28/17 20:00 12/28/17 21:18 12/28/17 21:30 Temperature 98.9 F Pulse Rate 78 77 75 Respiratory Rate 21 46 H 16 Blood Pressure 100/59 L 97/55 L Pulse Oximetry 92 L 93 L 93 L 12/28/17 22:00 12/28/17 22:01 12/28/17 22:31 Temperature Pulse Rate 75 74 75 Respiratory Rate 20 14 19 Blood Pressure 98/57 L 97/55 L Pulse Oximetry 94 L 94 L 94 L 12/28/17 23:01 12/28/17 23:31 12/29/17 00:00 Temperature Pulse Rate 74 75 74 Respiratory Rate 15 19 14 Blood Pressure 92/55 L 94/54 L Pulse Oximetry 95 95 95 12/29/17 00:01 12/29/17 00:12 12/29/17 00:14 Temperature 98.4 F Pulse Rate 74 74 Respiratory Rate 14 14 14 Blood Pressure 95/54 L Pulse Oximetry 94 L 94 L 12/29/17 00:31 12/29/17 01:01 12/29/17 01:31 Temperature Pulse Rate 75 76 75 Respiratory Rate 28 H 16 20 Blood Pressure 91/54 L 94/52 L 94/53 L Pulse Oximetry 95 92 L 94 L 12/29/17 02:00 12/29/17 02:01 12/29/17 02:31 Temperature Pulse Rate 74 74 75 Respiratory Rate 22 44 H 23 Blood Pressure 91/55 L 90/50 L Pulse Oximetry 95 95 95 12/29/17 03:01 12/29/17 03:31 12/29/17 03:35 Temperature Pulse Rate 74 73 77 Respiratory Rate 44 H 17 14 Blood Pressure 91/50 L 85/51 L Pulse Oximetry 97 97 97 12/29/17 04:00 12/29/17 04:08 12/29/17 04:09 Temperature 98.8 F Pulse Rate 72 71 70 Respiratory Rate 21 15 16 Blood Pressure 69/45 L 68/41 L Pulse Oximetry 95 94 L 95 12/29/17 04:11 12/29/17 04:31 12/29/17 04:34 Temperature Pulse Rate 70 73 73 Respiratory Rate 19 17 15 Blood Pressure 68/40 L 82/50 L 79/52 L Pulse Oximetry 95 97 95 12/29/17 04:44 12/29/17 04:45 12/29/17 05:00 Temperature Pulse Rate 74 74 76 Respiratory Rate 15 21 17 Blood Pressure 85/50 L 85/53 L 95/54 L Pulse Oximetry 99 98 99 12/29/17 05:16 12/29/17 06:00 12/29/17 07:47 Temperature Pulse Rate 76 76 Respiratory Rate 18 14 Blood Pressure 100/51 L Pulse Oximetry 99 93 L 12/29/17 07:55 12/29/17 08:00 12/29/17 10:00 Temperature 97.9 F Pulse Rate 85 85 85 Respiratory Rate 14 16 Blood Pressure 100/55 L Pulse Oximetry 95 Intake & Output 12/28/17 12/29/17 12/29/17 18:59 06:59 18:59 Intake Total 2100 / 2100 200 / 200 Output Total 2700 / 2700 550 / 550 Balance -600 / -600 -350 / -350 Weight 201.4 kg Intake: IV 1100 / 1100 200 / 200 NS Inj 1,000 ML @ 100 mls/hr IV 1000 / 1000 .CONT .Q10H ERNESTINA Rx#:[id number] Rocephin Inj 2,000 MG In NS Inj 100 / 100 100 ML @ 200 mls/hr IV.SIG Q24H ERNESTINA Rx#:[id number] Flagyl 500 MG Inj 100 ML @ 100 200 / 200 mls/hr IV.SIG Q8H ERNESTINA Rx#: [id number] Oral 0 / 0 0 / 0 Anesthesia Amount 1000 / 1000 Output: Urine 0 / 0 Emesis 1500 / 1500 Urine Amount (Catheter) 500 / 500 350 / 350 Indwelling Urethral Catheter 500 / 500 350 / 350 Gastric Drainage 700 / 700 200 / 200 Nasogastric Tube 500 / 500 200 / 200 Oral Orogastric Tube 200 / 200 0 / 0 Other: # Voids 1 Date of Last Bowel Movement 12/28/17 12/28/17 12/28/17 # Bowel Movements 1 # Emeses 5 - Constitutional no acute distress - Routine Respiratory Exam Present: decreased breath sounds - Routine Cardiovascular Exam Present: RRR - Routine Abdominal Exam Present: soft, tenderness (Patient indicates it is about the same as yesterday. Located in the epigastrium without guarding or rebound) - Urinary Catheter Management Indwelling Urethral Catheter Cath placed during this visit: yes Reason for continuing: Acute urinary retention Insertion date: 12/28/17 Insertion time: 05:00 Results - Labs CBC & Chem 7: 12/29/17 03:45 12/29/17 03:45 Laboratory Results - last 24 hr 12/28/17 12/28/17 12/28/17 11:54 12:28 16:57 WBC RBC Hgb Hct MCV MCH MCHC RDW Plt Count MPV Neut % (Auto) Lymph % (Auto) [place] % (Auto) Eos % (Auto) Baso % (Auto) Neut # (Auto) Lymph # (Auto) [place] # (Auto) Eos # (Auto) Baso # (Auto) WBC Differential Differential Comment Puncture Site Right radial Patient Temperature 98.6 O2 Saturation 88 L* ABG pH 7.45 H ABG pCO2 47 H ABG pO2 57 L* ABG HCO3 31 H ABG O2 Content 13.9 ABG Base Excess 7.2 H ABG Methemoglobin 1.3 Magdiel Test Present Hemoglobin 11.2 L Carboxyhemoglobin 1.2 O2 Delivery Device Ventilator Vent Setting 14/600/1.0/+5 Inspired O2 40 Critical Value Yes Sodium Potassium Chloride Carbon Dioxide Anion Gap BUN Creatinine Estimated GFR POC Glucose 271 H 247 H Random Glucose Lactic Acid Calcium Phosphorus Total Bilirubin AST ALT Alkaline Phosphatase Total Protein Albumin 12/28/17 12/28/17 12/28/17 17:28 17:28 17:28 WBC 11.2 H RBC 3.67 L Hgb 11.2 L Hct 33.2 L MCV 90.6 MCH 30.4 MCHC 33.6 RDW 15.0 Plt Count 152 MPV 11.5 H Neut % (Auto) 79.4 H Lymph % (Auto) 7.2 L [place] % (Auto) 12.7 H Eos % (Auto) 0.3 Baso % (Auto) 0.4 Neut # (Auto) 8.9 H Lymph # (Auto) 0.8 L [place] # (Auto) 1.4 H Eos # (Auto) 0.0 Baso # (Auto) 0.0 WBC Differential . Differential Comment Auto diff final Puncture Site Patient Temperature O2 Saturation ABG pH ABG pCO2 ABG pO2 ABG HCO3 ABG O2 Content ABG Base Excess ABG Methemoglobin Magdiel Test Hemoglobin Carboxyhemoglobin O2 Delivery Device Vent Setting Inspired O2 Critical Value Sodium 133 L Potassium 4.1 Chloride 94 L Carbon Dioxide 31.2 Anion Gap 8 BUN 45 H Creatinine 2.27 H Estimated GFR 22 L POC Glucose Random Glucose 246 H Lactic Acid 1.7 Calcium 8.2 L Phosphorus Total Bilirubin AST ALT Alkaline Phosphatase Total Protein Albumin 12/28/17 12/28/17 12/28/17 19:43 19:51 23:25 WBC RBC Hgb Hct MCV MCH MCHC RDW Plt Count MPV Neut % (Auto) Lymph % (Auto) [place] % (Auto) Eos % (Auto) Baso % (Auto) Neut # (Auto) Lymph # (Auto) [place] # (Auto) Eos # (Auto) Baso # (Auto) WBC Differential Differential Comment Puncture Site Right radial Patient Temperature 98.6 O2 Saturation 94 ABG pH 7.42 ABG pCO2 47 H ABG pO2 86 ABG HCO3 30 H ABG O2 Content 14.6 ABG Base Excess 5.6 H ABG Methemoglobin 1.4 Magdiel Test Present Hemoglobin 11.0 L Carboxyhemoglobin 1.1 O2 Delivery Device Ventilator Vent Setting Prvc/ ac Inspired O2 50 Critical Value No Sodium Potassium Chloride Carbon Dioxide Anion Gap BUN Creatinine Estimated GFR POC Glucose 262 H 252 H Random Glucose Lactic Acid Calcium Phosphorus Total Bilirubin AST ALT Alkaline Phosphatase Total Protein Albumin 12/29/17 12/29/17 12/29/17 03:45 03:45 03:59 WBC 11.3 H RBC 3.48 L Hgb 10.5 L Hct 32.1 L MCV 92.4 MCH 30.1 MCHC 32.6 RDW 14.9 Plt Count 159 MPV 11.3 H Neut % (Auto) 75.1 H Lymph % (Auto) 10.3 [place] % (Auto) 12.7 H Eos % (Auto) 1.0 Baso % (Auto) 0.9 Neut # (Auto) 8.5 H Lymph # (Auto) 1.2 [place] # (Auto) 1.4 H Eos # (Auto) 0.1 Baso # (Auto) 0.1 WBC Differential . Differential Comment Auto diff final Puncture Site Patient Temperature O2 Saturation ABG pH ABG pCO2 ABG pO2 ABG HCO3 ABG O2 Content ABG Base Excess ABG Methemoglobin Magdiel Test Hemoglobin Carboxyhemoglobin O2 Delivery Device Vent Setting Inspired O2 Critical Value Sodium 136 Potassium 4.1 Chloride 96 L Carbon Dioxide 32.2 H Anion Gap 8 BUN 51 H Creatinine 2.47 H Estimated GFR 20 L POC Glucose 237 H Random Glucose 226 H Lactic Acid Calcium 7.9 L Phosphorus 4.3 Total Bilirubin 0.4 AST 86 H ALT 74 H Alkaline Phosphatase 108 Total Protein 6.3 L D Albumin 2.5 L Microbiology 12/28/17 06:10 Clean Catch Urine Urine Culture - Final 50-100,000 cfu/mL mixed shreyas (probable contaminants ) - Imaging Impressions Venous Doppler Study 12/28/17 00:00 CONCLUSION: 1. Negative for deep venous thrombosis. Chest X-Ray 12/28/17 10:54 CONCLUSION: Low lung volumes with bibasilar consolidation likely relating to atelectasis. Assessment and Plan - Plan Ischemia in the stomach greater curvature and descending colon. Patient on no pressors and preparing for extubation. Dr. Mejias stated that she will have patient undergo repeat endoscopy Sunday or Sunday of next week. Discussed Condition With: Nurse Jamilah Quiros Patient - Attending Attestation I attest that I had a [id number] encounter with the patient on the same day, and personally performed and documented my assessment and findings in the medical record. The following services were provided during this hospital visit: Chart data review, vital sign assessments/reviewing monitor data Review of consultation notes if present Medication orders/review and/or management Ordering and/or reviewing lab tests Ordering and/or interpreting/reviewing x-rays and/or diagnostic studies Care of the patient and discussion of the patient with the care team Documentation time To help prompt me to consider important information that might be impacting today's encounter and assessment, Information from prior notes written by myself or my colleagues may have been "brought forward/copy and pasted" into today's note.
--- NOTE | 2017-12-29 12:05 | P.PNGI ---
Subjective Interval history: Pt is mechanically ventilated, alert, NGT to LIWS <Taran Henriquez - Last Filed: 12/29/17 11:50> Physical Exam Vital signs: Vital Signs 12/28/17 12:00 12/28/17 14:00 12/28/17 14:27 Temperature Pulse Rate 73 73 67 Respiratory Rate 20 Blood Pressure Pulse Oximetry 97 12/28/17 14:31 12/28/17 14:36 12/28/17 14:41 Temperature Pulse Rate 67 68 67 Respiratory Rate 19 22 21 Blood Pressure 96/54 L 105/54 L 118/55 L Pulse Oximetry 98 98 98 12/28/17 14:46 12/28/17 14:51 12/28/17 14:55 Temperature Pulse Rate 67 67 67 Respiratory Rate 16 16 20 Blood Pressure 92/54 L 98/56 L 103/59 L Pulse Oximetry 97 97 97 12/28/17 15:00 12/28/17 15:01 12/28/17 15:05 Temperature Pulse Rate 68 68 68 Respiratory Rate 17 16 37 H Blood Pressure 104/51 L 108/56 L Pulse Oximetry 97 97 100 12/28/17 15:10 12/28/17 15:15 12/28/17 15:20 Temperature Pulse Rate 68 69 69 Respiratory Rate 18 17 19 Blood Pressure 104/59 L 106/62 103/57 L Pulse Oximetry 100 100 100 12/28/17 15:25 12/28/17 15:31 12/28/17 15:36 Temperature Pulse Rate 35 L 70 36 L Respiratory Rate 14 18 18 Blood Pressure 106/63 105/56 L 113/57 L Pulse Oximetry 100 100 100 12/28/17 15:41 12/28/17 15:43 12/28/17 15:45 Temperature Pulse Rate 72 71 Respiratory Rate 17 14 18 Blood Pressure 112/55 L 105/58 L Pulse Oximetry 100 95 96 12/28/17 15:47 12/28/17 15:50 12/28/17 15:55 Temperature Pulse Rate 73 74 74 Respiratory Rate 22 16 15 Blood Pressure 109/59 L 107/61 Pulse Oximetry 95 95 12/28/17 16:00 12/28/17 16:06 12/28/17 16:10 Temperature Pulse Rate 74 72 72 Respiratory Rate 19 19 15 Blood Pressure 107/59 L 96/55 L 99/57 L Pulse Oximetry 95 99 96 08/10/18 16:16 12/28/17 16:20 12/28/17 16:26 Temperature Pulse Rate 74 73 74 Respiratory Rate 16 21 14 Blood Pressure 96/64 L 98/57 L 89/54 L Pulse Oximetry 96 96 96 12/28/17 16:30 12/28/17 16:36 12/28/17 16:41 Temperature Pulse Rate 73 74 74 Respiratory Rate 22 21 15 Blood Pressure 93/53 L 93/53 L 95/54 L Pulse Oximetry 95 96 96 12/28/17 16:45 12/28/17 16:53 12/28/17 18:00 Temperature Pulse Rate 75 75 80 Respiratory Rate 21 18 15 Blood Pressure 89/56 L 97/54 L Pulse Oximetry 96 85 L 94 L 12/28/17 19:37 12/28/17 19:39 12/28/17 20:00 Temperature 98.9 F Pulse Rate 79 78 Respiratory Rate 15 15 21 Blood Pressure Pulse Oximetry 96 92 L 12/28/17 21:18 12/28/17 21:30 12/28/17 22:00 Temperature Pulse Rate 77 75 75 Respiratory Rate 46 H 16 20 Blood Pressure 100/59 L 97/55 L Pulse Oximetry 93 L 93 L 94 L 12/28/17 22:01 12/28/17 22:31 12/28/17 23:01 Temperature Pulse Rate 74 75 74 Respiratory Rate 14 19 15 Blood Pressure 98/57 L 97/55 L 92/55 L Pulse Oximetry 94 L 94 L 95 12/28/17 23:31 12/29/17 00:00 12/29/17 00:01 Temperature 98.4 F Pulse Rate 75 74 74 Respiratory Rate 19 14 14 Blood Pressure 94/54 L 95/54 L Pulse Oximetry 95 95 94 L 12/29/17 00:12 12/29/17 00:14 12/29/17 00:31 Temperature Pulse Rate 74 75 Respiratory Rate 14 14 28 H Blood Pressure 91/54 L Pulse Oximetry 94 L 95 12/29/17 01:01 12/29/17 01:31 12/29/17 02:00 Temperature Pulse Rate 76 75 74 Respiratory Rate 16 20 22 Blood Pressure 94/52 L 94/53 L Pulse Oximetry 92 L 94 L 95 12/29/17 02:01 12/29/17 02:31 12/29/17 03:01 Temperature Pulse Rate 74 75 74 Respiratory Rate 44 H 23 44 H Blood Pressure 91/55 L 90/50 L 91/50 L Pulse Oximetry 95 95 97 12/29/17 03:31 12/29/17 03:35 12/29/17 04:00 Temperature Pulse Rate 73 77 72 Respiratory Rate 17 14 21 Blood Pressure 85/51 L Pulse Oximetry 97 97 95 12/29/17 04:08 12/29/17 04:09 12/29/17 04:11 Temperature 98.8 F Pulse Rate 71 70 70 Respiratory Rate 15 16 19 Blood Pressure 69/45 L 68/41 L 68/40 L Pulse Oximetry 94 L 95 95 12/29/17 04:31 12/29/17 04:34 12/29/17 04:44 Temperature Pulse Rate 73 73 74 Respiratory Rate 17 15 15 Blood Pressure 82/50 L 79/52 L 85/50 L Pulse Oximetry 97 95 99 12/29/17 04:45 12/29/17 05:00 12/29/17 05:16 Temperature Pulse Rate 74 76 76 Respiratory Rate 21 17 18 Blood Pressure 85/53 L 95/54 L 100/51 L Pulse Oximetry 98 99 99 12/29/17 06:00 12/29/17 07:47 12/29/17 07:55 Temperature Pulse Rate 76 85 Respiratory Rate 14 14 Blood Pressure Pulse Oximetry 93 L 12/29/17 08:00 12/29/17 10:00 Temperature 97.9 F Pulse Rate 85 85 Respiratory Rate 16 Blood Pressure 100/55 L Pulse Oximetry 95 Intake & Output 12/28/17 12/29/17 12/29/17 18:59 06:59 18:59 Intake Total 2100 / 2100 200 / 200 Output Total 2700 / 2700 550 / 550 Balance -600 / -600 -350 / -350 Weight 201.4 kg Intake: IV 1100 / 1100 200 / 200 NS Inj 1,000 ML @ 100 mls/hr IV 1000 / 1000 .CONT .Q10H [facility] Rx#:[id number] Rocephin Inj 2,000 MG In NS Inj 100 / 100 100 ML @ 200 mls/hr IV.SIG Q24H [facility] Rx#:[id number] Flagyl 500 MG Inj 100 ML @ 100 200 / 200 mls/hr IV.SIG Q8H [facility] Rx#: [id number] Oral 0 / 0 0 / 0 Anesthesia Amount 1000 / 1000 Output: Urine 0 / 0 Emesis 1500 / 1500 Urine Amount (Catheter) 500 / 500 350 / 350 Indwelling Urethral Catheter 500 / 500 350 / 350 Gastric Drainage 700 / 700 200 / 200 Nasogastric Tube 500 / 500 200 / 200 Oral Orogastric Tube 200 / 200 0 / 0 Other: # Voids 1 Date of Last Bowel Movement 12/28/17 12/28/17 12/28/17 # Bowel Movements 1 # Emeses 5 - Constitutional no acute distress - Routine HEENT Exam Head: Present: normocephalic - Routine Respiratory Exam Present: diminished air movement - Routine Cardiovascular Exam Present: RRR - Routine Abdominal Exam Present: firm Comments: Obese - Routine Extremities Exam Present: edema, pallor - Routine Skin Exam Present: intact, dry - Routine Neurological Exam Present: alert - Urinary Catheter Management Indwelling Urethral Catheter Cath placed during this visit: yes Reason for continuing: Acute urinary retention Insertion date: 12/28/17 Insertion time: 05:00 <Taran Henriquez - Last Filed: 12/29/17 11:50> Vital signs: Vital Signs 12/28/17 15:15 12/28/17 15:20 12/28/17 15:25 Temperature Pulse Rate 69 69 35 L Respiratory Rate 17 19 14 Blood Pressure 106/62 103/57 L 106/63 Pulse Oximetry 100 100 100 12/28/17 15:31 12/28/17 15:36 12/28/17 15:41 Temperature Pulse Rate 70 36 L 72 Respiratory Rate 18 18 17 Blood Pressure 105/56 L 113/57 L 112/55 L Pulse Oximetry 100 100 100 12/28/17 15:43 12/28/17 15:45 12/28/17 15:47 Temperature Pulse Rate 71 73 Respiratory Rate 14 18 22 Blood Pressure 105/58 L Pulse Oximetry 95 96 12/28/17 15:50 12/28/17 15:55 12/28/17 16:00 Temperature Pulse Rate 74 74 74 Respiratory Rate 16 15 19 Blood Pressure 109/59 L 107/61 107/59 L Pulse Oximetry 95 95 95 12/28/17 16:06 12/28/17 16:10 12/28/17 16:16 Temperature Pulse Rate 72 72 74 Respiratory Rate 19 15 16 Blood Pressure 96/55 L 99/57 L 96/64 L Pulse Oximetry 99 96 96 12/28/17 16:20 12/28/17 16:26 12/28/17 16:30 Temperature Pulse Rate 73 74 73 Respiratory Rate 21 14 22 Blood Pressure 98/57 L 89/54 L 93/53 L Pulse Oximetry 96 96 95 12/28/17 16:36 12/28/17 16:41 12/28/17 16:45 Temperature Pulse Rate 74 74 75 Respiratory Rate 21 15 21 Blood Pressure 93/53 L 95/54 L 89/56 L Pulse Oximetry 96 96 96 12/28/17 16:53 12/28/17 18:00 12/28/17 19:37 Temperature Pulse Rate 75 80 79 Respiratory Rate 18 15 15 Blood Pressure 97/54 L Pulse Oximetry 85 L 94 L 12/28/17 19:39 12/28/17 20:00 12/28/17 21:18 Temperature 98.9 F Pulse Rate 78 77 Respiratory Rate 15 21 46 H Blood Pressure 100/59 L Pulse Oximetry 96 92 L 93 L 12/28/17 21:30 12/28/17 22:00 12/28/17 22:01 Temperature Pulse Rate 75 75 74 Respiratory Rate 16 20 14 Blood Pressure 97/55 L 98/57 L Pulse Oximetry 93 L 94 L 94 L 12/28/17 22:31 12/28/17 23:01 12/28/17 23:31 Temperature Pulse Rate 75 74 75 Respiratory Rate 19 15 19 Blood Pressure 97/55 L 92/55 L 94/54 L Pulse Oximetry 94 L 95 95 12/29/17 00:00 12/29/17 00:01 12/29/17 00:12 Temperature 98.4 F Pulse Rate 74 74 74 Respiratory Rate 14 14 14 Blood Pressure 95/54 L Pulse Oximetry 95 94 L 12/29/17 00:14 12/29/17 00:31 12/29/17 01:01 Temperature Pulse Rate 75 76 Respiratory Rate 14 28 H 16 Blood Pressure 91/54 L 94/52 L Pulse Oximetry 94 L 95 92 L 12/29/17 01:31 12/29/17 02:00 12/29/17 02:01 Temperature Pulse Rate 75 74 74 Respiratory Rate 20 22 44 H Blood Pressure 94/53 L 91/55 L Pulse Oximetry 94 L 95 95 12/29/17 02:31 12/29/17 03:01 12/29/17 03:31 Temperature Pulse Rate 75 74 73 Respiratory Rate 23 44 H 17 Blood Pressure 90/50 L 91/50 L 85/51 L Pulse Oximetry 95 97 97 12/29/17 03:35 12/29/17 04:00 12/29/17 04:08 Temperature 98.8 F Pulse Rate 77 72 71 Respiratory Rate 14 21 15 Blood Pressure 69/45 L Pulse Oximetry 97 95 94 L 12/29/17 04:09 12/29/17 04:11 12/29/17 04:31 Temperature Pulse Rate 70 70 73 Respiratory Rate 16 19 17 Blood Pressure 68/41 L 68/40 L 82/50 L Pulse Oximetry 95 95 97 12/29/17 04:34 12/29/17 04:44 12/29/17 04:45 Temperature Pulse Rate 73 74 74 Respiratory Rate 15 15 21 Blood Pressure 79/52 L 85/50 L 85/53 L Pulse Oximetry 95 99 98 12/29/17 05:00 12/29/17 05:16 12/29/17 06:00 Temperature Pulse Rate 76 76 76 Respiratory Rate 17 18 Blood Pressure 95/54 L 100/51 L Pulse Oximetry 99 99 12/29/17 07:47 12/29/17 07:55 12/29/17 08:00 Temperature 97.9 F Pulse Rate 85 85 Respiratory Rate 14 14 16 Blood Pressure 100/55 L Pulse Oximetry 93 L 95 12/29/17 10:00 12/29/17 12:00 12/29/17 12:13 Temperature Pulse Rate 85 83 84 Respiratory Rate 17 15 Blood Pressure 114/58 L Pulse Oximetry 93 L 93 L 12/29/17 14:00 Temperature Pulse Rate 83 Respiratory Rate Blood Pressure Pulse Oximetry Intake & Output 12/28/17 12/29/17 12/29/17 18:59 06:59 18:59 Intake Total 2100 / 2100 200 / 200 1000 / 1000 Output Total 2700 / 2700 550 / 550 Balance -600 / -600 -350 / -350 1000 / 1000 Weight 201.4 kg Intake: IV 1100 / 1100 200 / 200 1000 / 1000 NS Inj 1,000 ML @ 100 mls/hr IV 1000 / 1000 1000 / 1000 .CONT .Q10H [facility] Rx#:[id number] Rocephin Inj 2,000 MG In NS Inj 100 / 100 100 ML @ 200 mls/hr IV.SIG Q24H [facility] Rx#:[id number] Flagyl 500 MG Inj 100 ML @ 100 200 / 200 mls/hr IV.SIG Q8H [facility] Rx#: [id number] Oral 0 / 0 0 / 0 Anesthesia Amount 1000 / 1000 Output: Urine 0 / 0 Emesis 1500 / 1500 Urine Amount (Catheter) 500 / 500 350 / 350 Indwelling Urethral Catheter 500 / 500 350 / 350 Gastric Drainage 700 / 700 200 / 200 Nasogastric Tube 500 / 500 200 / 200 Oral Orogastric Tube 200 / 200 0 / 0 Other: # Voids 1 Date of Last Bowel Movement 12/28/17 12/28/17 12/28/17 # Bowel Movements 1 # Emeses 5 - Urinary Catheter Management Indwelling Urethral Catheter Cath placed during this visit: no <Rachael Mejias - Last Filed: 12/29/17 15:13> Results - Labs CBC & Chem 7: 12/29/17 03:45 12/29/17 03:45 Laboratory Results - last 24 hr 12/28/17 12/28/17 12/28/17 11:54 12:28 16:57 WBC RBC Hgb Hct MCV MCH MCHC RDW Plt Count MPV Neut % (Auto) Lymph % (Auto) [place] % (Auto) Eos % (Auto) Baso % (Auto) Neut # (Auto) Lymph # (Auto) [place] # (Auto) Eos # (Auto) Baso # (Auto) WBC Differential Differential Comment Puncture Site Right radial Patient Temperature 98.6 O2 Saturation 88 L* ABG pH 7.45 H ABG pCO2 47 H ABG pO2 57 L* ABG HCO3 31 H ABG O2 Content 13.9 ABG Base Excess 7.2 H ABG Methemoglobin 1.3 Magdiel Test Present Hemoglobin 11.2 L Carboxyhemoglobin 1.2 O2 Delivery Device Ventilator Vent Setting 14/600/1.0/+5 Inspired O2 40 Critical Value Yes Sodium Potassium Chloride Carbon Dioxide Anion Gap BUN Creatinine Estimated GFR POC Glucose 271 H 247 H Random Glucose Lactic Acid Calcium Phosphorus Total Bilirubin AST ALT Alkaline Phosphatase Total Protein Albumin 12/28/17 12/28/17 12/28/17 17:28 17:28 17:28 WBC 11.2 H RBC 3.67 L Hgb 11.2 L Hct 33.2 L MCV 90.6 MCH 30.4 MCHC 33.6 RDW 15.0 Plt Count 152 MPV 11.5 H Neut % (Auto) 79.4 H Lymph % (Auto) 7.2 L [place] % (Auto) 12.7 H Eos % (Auto) 0.3 Baso % (Auto) 0.4 Neut # (Auto) 8.9 H Lymph # (Auto) 0.8 L [place] # (Auto) 1.4 H Eos # (Auto) 0.0 Baso # (Auto) 0.0 WBC Differential . Differential Comment Auto diff final Puncture Site Patient Temperature O2 Saturation ABG pH ABG pCO2 ABG pO2 ABG HCO3 ABG O2 Content ABG Base Excess ABG Methemoglobin Magdiel Test Hemoglobin Carboxyhemoglobin O2 Delivery Device Vent Setting Inspired O2 Critical Value Sodium 133 L Potassium 4.1 Chloride 94 L Carbon Dioxide 31.2 Anion Gap 8 BUN 45 H Creatinine 2.27 H Estimated GFR 22 L POC Glucose Random Glucose 246 H Lactic Acid 1.7 Calcium 8.2 L Phosphorus Total Bilirubin AST ALT Alkaline Phosphatase Total Protein Albumin 12/28/17 12/28/17 12/28/17 19:43 19:51 23:25 WBC RBC Hgb Hct MCV MCH MCHC RDW Plt Count MPV Neut % (Auto) Lymph % (Auto) [place] % (Auto) Eos % (Auto) Baso % (Auto) Neut # (Auto) Lymph # (Auto) [place] # (Auto) Eos # (Auto) Baso # (Auto) WBC Differential Differential Comment Puncture Site Right radial Patient Temperature 98.6 O2 Saturation 94 ABG pH 7.42 ABG pCO2 47 H ABG pO2 86 ABG HCO3 30 H ABG O2 Content 14.6 ABG Base Excess 5.6 H ABG Methemoglobin 1.4 Magdiel Test Present Hemoglobin 11.0 L Carboxyhemoglobin 1.1 O2 Delivery Device Ventilator Vent Setting Prvc/ ac Inspired O2 50 Critical Value No Sodium Potassium Chloride Carbon Dioxide Anion Gap BUN Creatinine Estimated GFR POC Glucose 262 H 252 H Random Glucose Lactic Acid Calcium Phosphorus Total Bilirubin AST ALT Alkaline Phosphatase Total Protein Albumin 12/29/17 12/29/17 12/29/17 03:45 03:45 03:59 WBC 11.3 H RBC 3.48 L Hgb 10.5 L Hct 32.1 L MCV 92.4 MCH 30.1 MCHC 32.6 RDW 14.9 Plt Count 159 MPV 11.3 H Neut % (Auto) 75.1 H Lymph % (Auto) 10.3 [place] % (Auto) 12.7 H Eos % (Auto) 1.0 Baso % (Auto) 0.9 Neut # (Auto) 8.5 H Lymph # (Auto) 1.2 [place] # (Auto) 1.4 H Eos # (Auto) 0.1 Baso # (Auto) 0.1 WBC Differential . Differential Comment Auto diff final Puncture Site Patient Temperature O2 Saturation ABG pH ABG pCO2 ABG pO2 ABG HCO3 ABG O2 Content ABG Base Excess ABG Methemoglobin Magdiel Test Hemoglobin Carboxyhemoglobin O2 Delivery Device Vent Setting Inspired O2 Critical Value Sodium 136 Potassium 4.1 Chloride 96 L Carbon Dioxide 32.2 H Anion Gap 8 BUN 51 H Creatinine 2.47 H Estimated GFR 20 L POC Glucose 237 H Random Glucose 226 H Lactic Acid Calcium 7.9 L Phosphorus 4.3 Total Bilirubin 0.4 AST 86 H ALT 74 H Alkaline Phosphatase 108 Total Protein 6.3 L D Albumin 2.5 L Microbiology 12/28/17 06:10 Clean Catch Urine Urine Culture - Final 50-100,000 cfu/mL mixed shreyas (probable contaminants ) - Imaging Impressions Venous Doppler Study 12/28/17 00:00 CONCLUSION: 1. Negative for deep venous thrombosis. Chest X-Ray 12/28/17 10:54 CONCLUSION: Low lung volumes with bibasilar consolidation likely relating to atelectasis. <Taran Henriquez - Last Filed: 12/29/17 11:50> - Labs CBC & Chem 7: 12/29/17 03:45 12/29/17 03:45 Laboratory Results - last 24 hr 12/28/17 12/28/17 12/28/17 16:57 17:28 17:28 WBC 11.2 H RBC 3.67 L Hgb 11.2 L Hct 33.2 L MCV 90.6 MCH 30.4 MCHC 33.6 RDW 15.0 Plt Count 152 MPV 11.5 H Neut % (Auto) 79.4 H Lymph % (Auto) 7.2 L [place] % (Auto) 12.7 H Eos % (Auto) 0.3 Baso % (Auto) 0.4 Neut # (Auto) 8.9 H Lymph # (Auto) 0.8 L [place] # (Auto) 1.4 H Eos # (Auto) 0.0 Baso # (Auto) 0.0 WBC Differential . Differential Comment Auto diff final Puncture Site Patient Temperature O2 Saturation ABG pH ABG pCO2 ABG pO2 ABG HCO3 ABG O2 Content ABG Base Excess ABG Methemoglobin Magdiel Test Hemoglobin Carboxyhemoglobin O2 Delivery Device Vent Setting Inspired O2 Critical Value Sodium Potassium Chloride Carbon Dioxide Anion Gap BUN Creatinine Estimated GFR POC Glucose 247 H Random Glucose Lactic Acid 1.7 Calcium Phosphorus Total Bilirubin AST ALT Alkaline Phosphatase Total Protein Albumin 12/28/17 12/28/17 12/28/17 17:28 19:43 19:51 WBC RBC Hgb Hct MCV MCH MCHC RDW Plt Count MPV Neut % (Auto) Lymph % (Auto) [place] % (Auto) Eos % (Auto) Baso % (Auto) Neut # (Auto) Lymph # (Auto) [place] # (Auto) Eos # (Auto) Baso # (Auto) WBC Differential Differential Comment Puncture Site Right radial Patient Temperature 98.6 O2 Saturation 94 ABG pH 7.42 ABG pCO2 47 H ABG pO2 86 ABG HCO3 30 H ABG O2 Content 14.6 ABG Base Excess 5.6 H ABG Methemoglobin 1.4 Magdiel Test Present Hemoglobin 11.0 L Carboxyhemoglobin 1.1 O2 Delivery Device Ventilator Vent Setting Prvc/ ac Inspired O2 50 Critical Value No Sodium 133 L Potassium 4.1 Chloride 94 L Carbon Dioxide 31.2 Anion Gap 8 BUN 45 H Creatinine 2.27 H Estimated GFR 22 L POC Glucose 262 H Random Glucose 246 H Lactic Acid Calcium 8.2 L Phosphorus Total Bilirubin AST ALT Alkaline Phosphatase Total Protein Albumin 12/28/17 12/29/17 12/29/17 23:25 03:45 03:45 WBC 11.3 H RBC 3.48 L Hgb 10.5 L Hct 32.1 L MCV 92.4 MCH 30.1 MCHC 32.6 RDW 14.9 Plt Count 159 MPV 11.3 H Neut % (Auto) 75.1 H Lymph % (Auto) 10.3 [place] % (Auto) 12.7 H Eos % (Auto) 1.0 Baso % (Auto) 0.9 Neut # (Auto) 8.5 H Lymph # (Auto) 1.2 [place] # (Auto) 1.4 H Eos # (Auto) 0.1 Baso # (Auto) 0.1 WBC Differential . Differential Comment Auto diff final Puncture Site Patient Temperature O2 Saturation ABG pH ABG pCO2 ABG pO2 ABG HCO3 ABG O2 Content ABG Base Excess ABG Methemoglobin Magdiel Test Hemoglobin Carboxyhemoglobin O2 Delivery Device Vent Setting Inspired O2 Critical Value Sodium 136 Potassium 4.1 Chloride 96 L Carbon Dioxide 32.2 H Anion Gap 8 BUN 51 H Creatinine 2.47 H Estimated GFR 20 L POC Glucose 252 H Random Glucose 226 H Lactic Acid Calcium 7.9 L Phosphorus 4.3 Total Bilirubin 0.4 AST 86 H ALT 74 H Alkaline Phosphatase 108 Total Protein 6.3 L D Albumin 2.5 L 12/29/17 12/29/17 12/29/17 03:59 11:56 12:07 WBC RBC Hgb Hct MCV MCH MCHC RDW Plt Count MPV Neut % (Auto) Lymph % (Auto) [place] % (Auto) Eos % (Auto) Baso % (Auto) Neut # (Auto) Lymph # (Auto) [place] # (Auto) Eos # (Auto) Baso # (Auto) WBC Differential Differential Comment Puncture Site Right radial Patient Temperature 98.6 O2 Saturation 95 ABG pH 7.39 ABG pCO2 49 H ABG pO2 87 ABG HCO3 28 H ABG O2 Content 13.0 ABG Base Excess 3.7 H ABG Methemoglobin 1.3 Magdiel Test Present Hemoglobin 9.7 L Carboxyhemoglobin 1.1 O2 Delivery Device Ventilator Vent Setting Cpap 10/5+ Inspired O2 45 Critical Value No Sodium Potassium Chloride Carbon Dioxide Anion Gap BUN Creatinine Estimated GFR POC Glucose 237 H 219 H Random Glucose Lactic Acid Calcium Phosphorus Total Bilirubin AST ALT Alkaline Phosphatase Total Protein Albumin Microbiology 12/28/17 06:10 Clean Catch Urine Urine Culture - Final 50-100,000 cfu/mL mixed shreyas (probable contaminants ) - Imaging Impressions Venous Doppler Study 12/28/17 00:00 CONCLUSION: 1. Negative for deep venous thrombosis. <Rachael Mejias - Last Filed: 12/29/17 15:13> Assessment and Plan - Plan Assessment: - Nausea, vomiting, abdominal distention and pain, constipation Today began having excessive burping and now has had multiple episodes of emesis today. Reportedly pt had coffee ground emesis, but the emesis she points to on her gown appears to be more brown in color. Pt is unsure when her last BM was, has had enemas, laxatives, and stool softeners and states has not had any significant stool. Does report passing flatus. States abdomen feels distended. Complaining of generalized abdominal pain, intermittent, described as dull. Was previously tolerating a regular diet but a few days ago had to be switched to liquids. KUB on 12/24 showed normal bowel gas pattern. Has never had EGD or colonoscopy. Denies ETOH, smoking, illicit drugs, NSAID use. Only previous abdominal surgery was C- section Of note, pt is on Elqiuis last dose was this morning (12/29/17) s/p EGD on 12/28/17 1. Esophagitis distal esophagus- ischemic changes of gastric wall involving fundus and body-greater curvature -biopsy,rest stomach normal 2. Retroflexed views revealed a hiatal hernia S/P Decompressive colonoscopy on 12/28/17 1. Diverticulosis sigmoid,descending ischemic colitis in right colon, cecum cecum not very dilated bowel looks viable overall 2. A rectal tube was left in place 3. Retroflexed views revealed internal hemorrhoids 4. Revealed internal hemorrhoids CT on 12/27/17 showed large amount of stools, gastric distension, stricture in the region of the gastric antrum, low density lesions of the spleen KUB 12/28/17 persistent abnormally dilated segment of the colon but overall bowel gas pattern appears less dilated Doppler US negative for DVT Vascular surgeon consulted and didn't recommend surgical intervention Palliative care on the case slight drop in hgb today, some blood noted in rectal tube, no bleeding from NGT Plan: NG to LIWS rectal tube in place Monitor hh Transfuse as needed Protonix Vascular/general surgeon on the case Palliative care on the case Needs repeat EGD in one week if stable and colonoscopy in one month Further recommendations to follow Pt has been seen and examined by myself and Dr. Mejias and this note is written on her behalf <Taran Henriquez - Last Filed: 12/29/17 11:50> - Attending Attestation seen, examined agree with above npo ngt ok to extubate from gi point <Rachael Mejias - Last Filed: 12/29/17 15:13>
[2017-12-29 12:18] LABS: ABG Base Excess 3.7 mmol/L (-2-2); ABG PCO2 49 mmHg (38-42); ABG PO2 87 mmHG (61-120)
--- NOTE | 2017-12-29 13:38 | P.PNNP ---
Subjective Interval history: Remains on the ventilator. On CPAP when I saw her. Urine output may have improved today. Creatinine is slightly higher. Physical Exam Vital signs: Vital Signs 12/28/17 14:00 12/28/17 14:27 12/28/17 14:31 Temperature Pulse Rate 73 67 67 Respiratory Rate 20 19 Blood Pressure 96/54 L Pulse Oximetry 97 98 12/28/17 14:36 12/28/17 14:41 12/28/17 14:46 Temperature Pulse Rate 68 67 67 Respiratory Rate 22 21 16 Blood Pressure 105/54 L 118/55 L 92/54 L Pulse Oximetry 98 98 97 12/28/17 14:51 12/28/17 14:55 12/28/17 15:00 Temperature Pulse Rate 67 67 68 Respiratory Rate 16 20 17 Blood Pressure 98/56 L 103/59 L Pulse Oximetry 97 97 97 12/28/17 15:01 12/28/17 15:05 12/28/17 15:10 Temperature Pulse Rate 68 68 68 Respiratory Rate 16 37 H 18 Blood Pressure 104/51 L 108/56 L 104/59 L Pulse Oximetry 97 100 100 12/28/17 15:15 12/28/17 15:20 12/28/17 15:25 Temperature Pulse Rate 69 69 35 L Respiratory Rate 17 19 14 Blood Pressure 106/62 103/57 L 106/63 Pulse Oximetry 100 100 100 12/28/17 15:31 12/28/17 15:36 12/28/17 15:41 Temperature Pulse Rate 70 36 L 72 Respiratory Rate 18 18 17 Blood Pressure 105/56 L 113/57 L 112/55 L Pulse Oximetry 100 100 100 12/28/17 15:43 12/28/17 15:45 12/28/17 15:47 Temperature Pulse Rate 71 73 Respiratory Rate 14 18 22 Blood Pressure 105/58 L Pulse Oximetry 95 96 12/28/17 15:50 12/28/17 15:55 12/28/17 16:00 Temperature Pulse Rate 74 74 74 Respiratory Rate 16 15 19 Blood Pressure 109/59 L 107/61 107/59 L Pulse Oximetry 95 95 95 12/28/17 16:06 12/28/17 16:10 12/28/17 16:16 Temperature Pulse Rate 72 72 74 Respiratory Rate 19 15 16 Blood Pressure 96/55 L 99/57 L 96/64 L Pulse Oximetry 99 96 96 12/28/17 16:20 12/28/17 16:26 12/28/17 16:30 Temperature Pulse Rate 73 74 73 Respiratory Rate 21 14 22 Blood Pressure 98/57 L 89/54 L 93/53 L Pulse Oximetry 96 96 95 12/28/17 16:36 12/28/17 16:41 12/28/17 16:45 Temperature Pulse Rate 74 74 75 Respiratory Rate 21 15 21 Blood Pressure 93/53 L 95/54 L 89/56 L Pulse Oximetry 96 96 96 12/28/17 16:53 12/28/17 18:00 12/28/17 19:37 Temperature Pulse Rate 75 80 79 Respiratory Rate 18 15 15 Blood Pressure 97/54 L Pulse Oximetry 85 L 94 L 12/28/17 19:39 12/28/17 20:00 12/28/17 21:18 Temperature 98.9 F Pulse Rate 78 77 Respiratory Rate 15 21 46 H Blood Pressure 100/59 L Pulse Oximetry 96 92 L 93 L 12/28/17 21:30 12/28/17 22:00 12/28/17 22:01 Temperature Pulse Rate 75 75 74 Respiratory Rate 16 20 14 Blood Pressure 97/55 L 98/57 L Pulse Oximetry 93 L 94 L 94 L 12/28/17 22:31 12/28/17 23:01 12/28/17 23:31 Temperature Pulse Rate 75 74 75 Respiratory Rate 19 15 19 Blood Pressure 97/55 L 92/55 L 94/54 L Pulse Oximetry 94 L 95 95 12/29/17 00:00 12/29/17 00:01 12/29/17 00:12 Temperature 98.4 F Pulse Rate 74 74 74 Respiratory Rate 14 14 14 Blood Pressure 95/54 L Pulse Oximetry 95 94 L 12/29/17 00:14 12/29/17 00:31 12/29/17 01:01 Temperature Pulse Rate 75 76 Respiratory Rate 14 28 H 16 Blood Pressure 91/54 L 94/52 L Pulse Oximetry 94 L 95 92 L 12/29/17 01:31 12/29/17 02:00 12/29/17 02:01 Temperature Pulse Rate 75 74 74 Respiratory Rate 20 22 44 H Blood Pressure 94/53 L 91/55 L Pulse Oximetry 94 L 95 95 12/29/17 02:31 12/29/17 03:01 12/29/17 03:31 Temperature Pulse Rate 75 74 73 Respiratory Rate 23 44 H 17 Blood Pressure 90/50 L 91/50 L 85/51 L Pulse Oximetry 95 97 97 12/29/17 03:35 12/29/17 04:00 12/29/17 04:08 Temperature 98.8 F Pulse Rate 77 72 71 Respiratory Rate 14 21 15 Blood Pressure 69/45 L Pulse Oximetry 97 95 94 L 12/29/17 04:09 12/29/17 04:11 12/29/17 04:31 Temperature Pulse Rate 70 70 73 Respiratory Rate 16 19 17 Blood Pressure 68/41 L 68/40 L 82/50 L Pulse Oximetry 95 95 97 12/29/17 04:34 12/29/17 04:44 12/29/17 04:45 Temperature Pulse Rate 73 74 74 Respiratory Rate 15 15 21 Blood Pressure 79/52 L 85/50 L 85/53 L Pulse Oximetry 95 99 98 12/29/17 05:00 12/29/17 05:16 12/29/17 06:00 Temperature Pulse Rate 76 76 76 Respiratory Rate 17 18 Blood Pressure 95/54 L 100/51 L Pulse Oximetry 99 99 12/29/17 07:47 12/29/17 07:55 12/29/17 08:00 Temperature 97.9 F Pulse Rate 85 85 Respiratory Rate 14 14 16 Blood Pressure 100/55 L Pulse Oximetry 93 L 95 12/29/17 10:00 12/29/17 12:00 12/29/17 12:13 Temperature Pulse Rate 85 83 84 Respiratory Rate 17 15 Blood Pressure 114/58 L Pulse Oximetry 93 L 93 L Intake & Output 12/28/17 12/29/17 12/29/17 18:59 06:59 18:59 Intake Total 2100 / 2100 200 / 200 Output Total 2700 / 2700 550 / 550 Balance -600 / -600 -350 / -350 Weight 201.4 kg Intake: IV 1100 / 1100 200 / 200 NS Inj 1,000 ML @ 100 mls/hr IV 1000 / 1000 .CONT .Q10H [facility] Rx#:[id number] Rocephin Inj 2,000 MG In NS Inj 100 / 100 100 ML @ 200 mls/hr IV.SIG Q24H [facility] Rx#:[id number] Flagyl 500 MG Inj 100 ML @ 100 200 / 200 mls/hr IV.SIG Q8H [facility] Rx#: [id number] Oral 0 / 0 0 / 0 Anesthesia Amount 1000 / 1000 Output: Urine 0 / 0 Emesis 1500 / 1500 Urine Amount (Catheter) 500 / 500 350 / 350 Indwelling Urethral Catheter 500 / 500 350 / 350 Gastric Drainage 700 / 700 200 / 200 Nasogastric Tube 500 / 500 200 / 200 Oral Orogastric Tube 200 / 200 0 / 0 Other: # Voids 1 Date of Last Bowel Movement 12/28/17 12/28/17 12/28/17 # Bowel Movements 1 # Emeses 5 - Constitutional no acute distress - Routine HEENT Exam Head: Present: normocephalic, atraumatic Eye: Present: EOMI - Routine Neck Exam Absent: lymphadenopathy - Routine Respiratory Exam Present: CTA bilaterally Comments: vented breath sounds heard bilaterally. - Routine Cardiovascular Exam Present: RRR, S1, S2 - Routine Abdominal Exam Present: soft, normoactive bowel sounds - Routine Extremities Exam Present: edema - Routine Neurological Exam on the ventilator. - Urinary Catheter Management Indwelling Urethral Catheter Cath placed during this visit: yes Reason for continuing: Acute urinary retention Insertion date: 12/28/17 Insertion time: 05:00 Assessment and Plan - Assessment (1) Acute renal failure Code(s): N17.9 - Acute kidney failure, unspecified Status: Acute Plan: Normal renal function at baseline. MARÍA ELENA most likely due to renal hypoperfusion secondary to hypotension, also infection/sepsis syndrome; may have suffered ATN Renal function has declined, and urine output is marginal, although appears to be improving. On IVF, NS @ 100 cc/hr Continue to monitor renal indices Avoid nephrotoxic agents Lasix, Entresto, and KCL are held. Avoid hypotension, use pressors if needed On Rocephin for UTI Repeat labs daily, obtain phosphorus level in AM (2) Diabetes mellitus Code(s): E11.9 - Type 2 diabetes mellitus without complications Status: Acute Qualifiers: Diabetes mellitus type: type 2 Diabetes mellitus complication status: with unspecified complications Plan: Maintain glucose 140-180mg/dL (3) Non-ischemic cardiomyopathy Code(s): I42.8 - Other cardiomyopathies Status: Chronic Plan: Monitor fluid status Has AICD/PPM in place (4) Ischemic colitis Code(s): K55.9 - Vascular disorder of intestine, unspecified Status: Acute Plan: GI is following s/p colonic decompression, EGD NG tube in place. She has significant NG output, more than urine output. She may need another EGD.
[2017-12-29] MEDS: ALPRAZolam 0.5 MG Tablet PO PRN (14:30)
[2017-12-29] MEDS: Acetaminophen-HYDROcodone 325/7.5 Liq 15 ML UDC NG/OG PRN (18:21)
--- NOTE | 2017-12-30 07:12 | P.PNCC ---
Subjective Subjective Remarks/Hospital Course: The patient is a 57-year-old female with multiple medical comorbidities, which include hypertension, diabetes mellitus, morbid obesity, hypothyroidism, COPD, CHF with a previous pacemaker placement, was admitted under hospitalist service on 12/21/2017 for chest pain. During her hospital course, she was seen by cardiology and GI services. The patient went into renal failure on 12/27/2017 where her creatinine increased from 0.97 on arrival to 2.29. She was also complaining of abdominal distention associated with nausea and vomiting. The patient underwent CT abdomen and pelvis yesterday, which showed colonicdistention and gastric distention. She underwentupper endoscopy and a colonoscopy today by Dr. Mejias which showed distal esophagitis, ischemic changes of the gastric wall involving fundus and body, greater curvature in addition to ischemic colitis in the right colon, and sigmoid diverticulosis. Vascular Surgery was consulted. Of note, the patient was on Eliquis 5 mg b.i.d. at home. She remained on mechanical ventilation post-procedure and Critical Care Medicine was consulted for critical care management. Her laboratory today showed worsening renal function with a creatinine of 2.54. When seen, the patient is on full mechanical ventilation. Diuretics were discontinued. 12/29 Patient remains intubated given 2L boluses NS and Albumin overnight for hypotension MAP now 67mmHg. Afebrile. 12/30 Patient was extubated yesterday on BIPAP overnight. Awake and alert. Afebrile. Objective Vital Signs / I&O: Vital Signs 12/29/17 07:47 12/29/17 07:55 12/29/17 08:00 Temperature 97.9 F Pulse Rate 85 85 Respiratory Rate 14 14 16 Blood Pressure 100/55 L Pulse Oximetry 93 L 95 12/29/17 10:00 12/29/17 12:00 12/29/17 12:13 Temperature Pulse Rate 85 83 84 Respiratory Rate 17 15 Blood Pressure 114/58 L Pulse Oximetry 93 L 93 L 12/29/17 14:00 12/29/17 15:27 12/29/17 16:00 Temperature 98.3 F Pulse Rate 83 81 86 Respiratory Rate 18 15 Blood Pressure 116/57 L Pulse Oximetry 95 12/29/17 18:00 12/29/17 19:39 12/29/17 20:00 Temperature 99 F Pulse Rate 82 80 85 Respiratory Rate 18 15 Blood Pressure 123/60 Pulse Oximetry 93 L 91 L 12/29/17 21:15 12/29/17 22:00 12/30/17 00:05 Temperature 98.3 F Pulse Rate 80 79 Respiratory Rate 15 Blood Pressure 112/56 L Pulse Oximetry 94 L 91 L 12/30/17 00:16 12/30/17 02:05 12/30/17 03:51 Temperature Pulse Rate 79 80 80 Respiratory Rate 16 16 Blood Pressure Pulse Oximetry 95 96 12/30/17 04:00 12/30/17 06:02 Temperature 98.3 F Pulse Rate 82 84 Respiratory Rate 15 Blood Pressure 123/58 L Pulse Oximetry 97 Intake & Output 12/29/17 12/29/17 12/30/17 06:59 18:59 06:59 Intake Total 200 / 200 2300 / 2300 Output Total 550 / 550 1500 / 1500 Balance -350 / -350 800 / 800 Weight 201.4 kg Intake: IV 200 / 200 2300 / 2300 NS Inj 1,000 ML @ 100 mls/hr IV 1999 .CONT .Q10H [facility] Rx#:[id number] Rocephin Inj 2,000 MG In NS Inj 100 / 100 100 ML @ 200 mls/hr IV.SIG Q24H [facility] Rx#:[id number] Flagyl 500 MG Inj 100 ML @ 100 200 / 200 200 / 200 mls/hr IV.SIG Q8H [facility] Rx#: [id number] Oral 0 / 0 Output: Urine Amount (Catheter) 350 / 350 750 / 750 Indwelling Urethral Catheter 350 / 350 750 / 750 Gastric Drainage 200 / 200 750 / 750 Nasogastric Tube 200 / 200 750 / 750 Oral Orogastric Tube 0 / 0 Other: Date of Last Bowel Movement 12/28/17 12/28/17 12/28/17 Result Diagrams: 12/30/17 10:17 12/30/17 10:17 Other Results: Laboratory Results - last 12 hr 12/29/17 12/29/17 12/30/17 19:56 23:29 03:29 POC Glucose 210 H 213 H 190 H Imaging: Toe X-Ray 12/20/17 00:00 CONCLUSION: Focal soft tissue swelling involving the fourth toe. The underlying bony structures are grossly intact. Abdomen/Pelvis CT 12/27/17 14:34 CONCLUSION: 1. Colonic distention with a large amount of stool as described, features most typical of a nonmechanical obstruction. 2. Gastric distention without a perceptible mass. A stricture in the region of the gastric antrum with the in the differential. Duodenum is decompressed. 3. There are scattered low-density lesions of the spleen, nonspecific but I believe they were present on the prior studies, just better seen today and probably benign. 4. There is infiltrate in the visualized right lung base. Venous Doppler Study 12/28/17 00:00 CONCLUSION: 1. Negative for deep venous thrombosis. Abdomen X-Ray 12/28/17 06:00 CONCLUSION: Persistent abnormally dilated segment of colon but overall bowel gas pattern appears less dilated than on the prior study from yesterday. Technique makes it very difficult to assess the overall bowel gas pattern. Suggest continued attention to this at follow-up imaging. Chest X-Ray 12/28/17 10:54 CONCLUSION: Low lung volumes with bibasilar consolidation likely relating to atelectasis. Objective Remarks: GENERAL: Patient is 57yo lying in bed in no acute resp distress SKIN: Warm and dry. HEAD: Normocephalic. EYES: No scleral icterus. No injection or drainage. NECK: Supple, trachea midline. No JVD or lymphadenopathy. CARDIOVASCULAR: Regular rate and rhythm without murmurs, gallops, or rubs. RESPIRATORY: Breath sounds equal bilaterally. No accessory muscle use. GASTROINTESTINAL: Abdomen soft, non-tender, nondistended. MUSCULOSKELETAL: No cyanosis, + edema. Neuro: Awake and alert Assessment and Plan - Assessment and Plan Plan: 1. Acute hypoxemic and hypercapnic respiratory failure. 2. Ischemic changes of the gastric wall and descending ischemic colitis in the right colon. 3. Acute renal failure. 4. Hyponatremia. 5. Urinary tract infection. 6. Leukocytosis. 7. History of congestive heart failure. 8. History of chronic obstructive pulmonary disease. 9. Diabetes mellitus. 10. History of hypertension. 11. Morbid obesity. Plan: Neuro: Awake and alert. Monitor neuro status. Avoid sedatives Pulm: Continue with oxygen and maintain sats >92%. Bronchodilators, IS NIPPV PRN for resp distress CV: Monitor HR and BP and maintain MAP> 65 mmHg. Lactic acid 1.7. On NS@100ml/hr, for 2D echo : Monitor renal function, I's and O's and avoid nephrotoxins. Renal is following- Dr. Guzman Renal function is better Cr: 1.0 from 2.47 GI: Keep n.p.o. on Protonix 40 mg daily for GI prophylaxis. s/p EGD, colonoscopy: ischemic changes of the gastric wall and ischemic colitis of the right colon. GI, Surgery following ID: Continue with abx(Rocephin and Flagyl). Monitor for signs of infections(fever and WBC). Heme: Monitor CBC and coags. Endo: SSI, medium scale with Accu-Cheks q.4 for glycemic control. GI prophylaxis with Protonix DVT prophylaxis with heparin subcutaneously. Doppler US LE negative for DVT 12/28 Palliative Care is following Code status: Full code Will sign off and transfer care to [facility] Level 2
[2017-12-30] MEDS: Pantoprazole Inj 40 MG Vial IV.PUSH SCH ×2 (08:22→20:46)
[2017-12-30] MEDS: Polyethylene Glycol 3350 17 GM Packet PO SCH (08:23)
[2017-12-30] MEDS: Insulin NovoLIN Regular Correctional Sugar Inj SQ SCH ×7 (09:10→23:53)
[2017-12-30 10:29] LABS: Baso # (Auto) 0.1 th/mm3 (0.0-0.2); Baso % (Auto) 0.7 % (0.0-2.0); Eos # (Auto) 0.2 th/mm3 (0.0-0.4); Eos % (Auto) 2.6 % (0.0-4.0); Hematocrit 28.9 % (35.0-46.0); Hemoglobin 9.5 gm/dL (11.6-15.3); Lymph # (Auto) 0.9 th/mm3 (1.0-4.8); Lymph % (Auto) 11.4 % (9.0-44.0); Mean Corpuscular Hemoglobin 30.2 pg (27.0-34.0); Mean Corpuscular Volume 91.6 fL (80.0-100.0); Mean Platelet Volume 10.5 fL (7.0-11.0); Mono # (Auto) 0.8 th/mm3 (0.0-0.9); Mono % (Auto) 10.1 % (0.0-8.0); Neut # (Auto) 6.2 th/mm3 (1.8-7.7); Neut % (Auto) 75.2 % (16.0-70.0); Platelet Count 174 th/mm3 (150-450); Red Blood Count 3.15 mil/mm3 (4.00-5.30); Red Cell Distribution Width 14.8 % (11.6-17.2); White Blood Count 8.3 th/mm3 (4.0-11.0)
--- NOTE | 2017-12-30 10:49 | P.PNGS ---
Subjective Patient reports: feels better (extubated, on cpap, no fevers) Physical Exam Vital signs: Vital Signs 12/29/17 12:00 12/29/17 12:13 12/29/17 14:00 Temperature Pulse Rate 83 84 83 Respiratory Rate 17 15 Blood Pressure 114/58 L Pulse Oximetry 93 L 93 L 12/29/17 15:27 12/29/17 16:00 12/29/17 18:00 Temperature 98.3 F Pulse Rate 81 86 82 Respiratory Rate 18 15 Blood Pressure 116/57 L Pulse Oximetry 95 12/29/17 19:39 12/29/17 20:00 12/29/17 21:15 Temperature 99 F Pulse Rate 80 85 Respiratory Rate 18 15 Blood Pressure 123/60 Pulse Oximetry 93 L 91 L 94 L 12/29/17 22:00 12/30/17 00:05 12/30/17 00:16 Temperature 98.3 F Pulse Rate 80 79 79 Respiratory Rate 15 16 Blood Pressure 112/56 L Pulse Oximetry 91 L 95 12/30/17 02:05 12/30/17 03:51 12/30/17 04:00 Temperature 98.3 F Pulse Rate 80 80 82 Respiratory Rate 16 15 Blood Pressure 123/58 L Pulse Oximetry 96 97 12/30/17 06:02 12/30/17 07:18 12/30/17 07:20 Temperature Pulse Rate 84 81 Respiratory Rate 14 Blood Pressure Pulse Oximetry 95 12/30/17 08:00 12/30/17 09:14 12/30/17 10:00 Temperature 98.6 F Pulse Rate 85 86 Respiratory Rate 18 Blood Pressure 129/58 L Pulse Oximetry 95 94 L Intake & Output 12/29/17 12/30/17 12/30/17 18:59 06:59 18:59 Intake Total 2300 / 2300 100 / 100 Output Total 1500 / 1500 Balance 800 / 800 100 / 100 Intake: IV 2300 / 2300 100 / 100 NS Inj 1,000 ML @ 100 mls/hr IV 1999 .CONT .Q10H [facility] Rx#:[id number] Rocephin Inj 2,000 MG In NS Inj 100 / 100 100 ML @ 200 mls/hr IV.SIG Q24H [facility] Rx#:[id number] Flagyl 500 MG Inj 100 ML @ 100 200 / 200 100 / 100 mls/hr IV.SIG Q8H [facility] Rx#: [id number] Output: Urine Amount (Catheter) 750 / 750 Indwelling Urethral Catheter 750 / 750 Gastric Drainage 750 / 750 Nasogastric Tube 750 / 750 Other: Date of Last Bowel Movement 12/28/17 12/28/17 12/28/17 - Routine Abdominal Exam Present: soft (mild ttp, no rebound, no guarding) - Urinary Catheter Management Indwelling Urethral Catheter Cath placed during this visit: yes Reason for continuing: Acute urinary retention Insertion date: 12/28/17 Insertion time: 05:00 Assessment and Plan - Plan Ischemia in the stomach greater curvature and descending colon. PLAN Abdominal exams monitor labs- stable await gi for recheck egd this week
[2017-12-30 10:56] LABS: Albumin 2.3 g/dL (3.4-5.0); Calcium 7.3 mg/dL (8.5-10.1); Carbon Dioxide 28.1 meq/L (21.0-32.0); Potassium 3.4 meq/L (3.5-5.1); Total Protein 5.9 g/dL (6.4-8.2)
--- NOTE | 2017-12-30 11:33 | P.PNNP ---
Subjective Interval history: she has been extubated. She is awake, alert, not in distress. Physical Exam Vital signs: Vital Signs 12/29/17 12:00 12/29/17 12:13 12/29/17 14:00 Temperature Pulse Rate 83 84 83 Respiratory Rate 17 15 Blood Pressure 114/58 L Pulse Oximetry 93 L 93 L 12/29/17 15:27 12/29/17 16:00 12/29/17 18:00 Temperature 98.3 F Pulse Rate 81 86 82 Respiratory Rate 18 15 Blood Pressure 116/57 L Pulse Oximetry 95 12/29/17 19:39 12/29/17 20:00 12/29/17 21:15 Temperature 99 F Pulse Rate 80 85 Respiratory Rate 18 15 Blood Pressure 123/60 Pulse Oximetry 93 L 91 L 94 L 12/29/17 22:00 12/30/17 00:05 12/30/17 00:16 Temperature 98.3 F Pulse Rate 80 79 79 Respiratory Rate 15 16 Blood Pressure 112/56 L Pulse Oximetry 91 L 95 12/30/17 02:05 12/30/17 03:51 12/30/17 04:00 Temperature 98.3 F Pulse Rate 80 80 82 Respiratory Rate 16 15 Blood Pressure 123/58 L Pulse Oximetry 96 97 12/30/17 06:02 12/30/17 07:18 12/30/17 07:20 Temperature Pulse Rate 84 81 Respiratory Rate 14 Blood Pressure Pulse Oximetry 95 12/30/17 08:00 12/30/17 09:14 12/30/17 10:00 Temperature 98.6 F Pulse Rate 85 86 Respiratory Rate 18 Blood Pressure 129/58 L Pulse Oximetry 95 94 L 12/30/17 11:11 Temperature Pulse Rate 85 Respiratory Rate 17 Blood Pressure Pulse Oximetry 96 Intake & Output 12/29/17 12/30/17 12/30/17 18:59 06:59 18:59 Intake Total 2300 / 2300 100 / 100 Output Total 1500 / 1500 Balance 800 / 800 100 / 100 Intake: IV 2300 / 2300 100 / 100 NS Inj 1,000 ML @ 100 mls/hr IV 1999 / 1999 .CONT .Q10H [facility] Rx#:[id number] Rocephin Inj 2,000 MG In NS Inj 100 / 100 100 ML @ 200 mls/hr IV.SIG Q24H [facility] Rx#:[id number] Flagyl 500 MG Inj 100 ML @ 100 200 / 200 100 / 100 mls/hr IV.SIG Q8H [facility] Rx#: [id number] Output: Urine Amount (Catheter) 750 / 750 Indwelling Urethral Catheter 750 / 750 Gastric Drainage 750 / 750 Nasogastric Tube 750 / 750 Other: Date of Last Bowel Movement 12/28/17 12/28/17 12/28/17 Narrative: awake and alert, oriented x 3. NG tube in place, connected to low wall suction. anicteric no rales, decreased breath sounds, no wheezes regular rhythm abdomen- flabby soft, nontender, slightyly distended, obese. extremiteis- trace pretibial edema moves all extremities spontaneously. - Urinary Catheter Management Indwelling Urethral Catheter Cath placed during this visit: yes Reason for continuing: Acute urinary retention Insertion date: 12/28/17 Insertion time: 05:00 Assessment and Plan - Assessment (1) Acute renal failure Code(s): N17.9 - Acute kidney failure, unspecified Status: Acute Plan: Normal renal function at baseline. MARÍA ELENA most likely due to renal hypoperfusion secondary to hypotension, also infection/sepsis syndrome; may have suffered ATN Renal function has improved. Change IVF to 1/2NS at 84 ml/hour. Avoid nephrotoxic agents Lasix, Entresto, and KCL are held. Avoid hypotension, use pressors if needed On Rocephin for UTI Replace potassium. (2) Diabetes mellitus Code(s): E11.9 - Type 2 diabetes mellitus without complications Status: Acute Qualifiers: Diabetes mellitus type: type 2 Diabetes mellitus complication status: with unspecified complications Plan: Maintain glucose 140-180mg/dL (3) Non-ischemic cardiomyopathy Code(s): I42.8 - Other cardiomyopathies Status: Chronic Plan: Monitor fluid status Has AICD/PPM in place (4) Ischemic colitis Code(s): K55.9 - Vascular disorder of intestine, unspecified Status: Acute Plan: GI is following s/p colonic decompression, EGD NG tube in place. She has significant NG output. She may need another EGD. - Attending Attestation I will sign off at this time. Thanks for the consult.
[2017-12-30] MEDS ORDERED: Potassium Chlor 20 mEq Premix 20 MEQ/100 ML PIGGYBACK IV.SIG PRN (12:27)
[2017-12-30] MEDS ORDERED: Potassium Phosphate Inj 30 MMOL in Sodium Chlor 0.9% Inj 250 ML IV.SIG PRN (12:27)
[2017-12-30] MEDS ORDERED: Magnesium Sulfate Inj 2 GM in Sodium Chlor 0.9% Inj 96 ML IV.SIG PRN (12:27)
[2017-12-30] MEDS ORDERED: Magnesium Sulfate Inj 4 GM in Sodium Chlor 0.9% Inj 92 ML IV.SIG PRN (12:27)
[2017-12-30] MEDS ORDERED: Potassium Chlor 40 mEq Premix 40 MEQ/100 ML PIGGYBACK IV.SIG PRN ×2 (12:27)
[2017-12-30] MEDS ORDERED: Potassium Phosphate 500 MG Soluble Tablet PO PRN ×2 (12:27)
[2017-12-30] MEDS ORDERED: Potassium Chloride 25 MEQ Effervescent Tablet PO PRN (12:27)
[2017-12-30] MEDS ORDERED: Sodium Phosphate Inj 30 MMOL in Sodium Chlor 0.9% Inj 250 ML IV.SIG PRN (12:27)
[2017-12-30] MEDS ORDERED: Magnesium Oxide 400 MG Tablet PO PRN (12:27)
[2017-12-30] MEDS: Sodium Chloride 0.45 % Inj 1,000 ML IV.CONT SCH ×2 (12:48→23:51)
[2017-12-30] MEDS: Acetaminophen-HYDROcodone 325/7.5 Liq 15 ML UDC NG/OG PRN ×2 (12:53→18:06)
[2017-12-30] MEDS ORDERED: Morphine Inj 4 MG/ML Vial IV.PUSH ONE (14:24)
[2017-12-30] MEDS: Potassium Chlor 20 mEq Premix 20 MEQ/100 ML PIGGYBACK IV.SIG PRN ×2 (14:59→17:10)
[2017-12-30] MEDS: Acetaminophen 325 MG Tablet PO PRN (15:47)
[2017-12-30] MEDS: Hydrocortisone 2.5% Cream 30 GM Tube TOPICAL SCH ×2 (16:11→20:45)
--- NOTE | 2017-12-30 16:47 | P.PNGI ---
Subjective Interval history: Pt is resting in bed, extubated now, having some mild abd pain, minimal amount of stools in rectal bag, no bleeding, NGT clamped <Taran Henriquez - Last Filed: 12/30/17 16:38> Physical Exam Vital signs: Vital Signs 12/29/17 18:00 12/29/17 19:39 12/29/17 20:00 Temperature 99 F Pulse Rate 82 80 85 Respiratory Rate 18 15 Blood Pressure 123/60 Pulse Oximetry 93 L 91 L 12/29/17 21:15 12/29/17 22:00 12/30/17 00:05 Temperature 98.3 F Pulse Rate 80 79 Respiratory Rate 15 Blood Pressure 112/56 L Pulse Oximetry 94 L 91 L 12/30/17 00:16 12/30/17 02:05 12/30/17 03:51 Temperature Pulse Rate 79 80 80 Respiratory Rate 16 16 Blood Pressure Pulse Oximetry 95 96 12/30/17 04:00 12/30/17 06:02 12/30/17 07:18 Temperature 98.3 F Pulse Rate 82 84 Respiratory Rate 15 Blood Pressure 123/58 L Pulse Oximetry 97 95 12/30/17 07:20 12/30/17 08:00 12/30/17 09:14 Temperature 98.6 F Pulse Rate 81 85 Respiratory Rate 14 18 Blood Pressure 129/58 L Pulse Oximetry 95 94 L 12/30/17 10:00 12/30/17 11:11 12/30/17 12:00 Temperature 98.2 F Pulse Rate 86 85 86 Respiratory Rate 17 18 Blood Pressure 140/66 Pulse Oximetry 96 98 12/30/17 14:00 12/30/17 14:33 12/30/17 15:23 Temperature Pulse Rate 82 86 Respiratory Rate 17 16 Blood Pressure Pulse Oximetry 12/30/17 16:00 Temperature 99.2 F Pulse Rate 82 Respiratory Rate 18 Blood Pressure 133/60 Pulse Oximetry 98 Intake & Output 12/29/17 12/30/17 12/30/17 18:59 06:59 18:59 Intake Total 2300 / 2300 100 / 100 1100 / 1100 Output Total 1500 / 1500 Balance 800 / 800 100 / 100 1100 / 1100 Intake: IV 2300 / 2300 100 / 100 1100 / 1100 NS Inj 1,000 ML @ 100 mls/hr IV 2000 / 2000 1000 / 1000 .CONT .Q10H ERNEST[facility] Rx#:[id number] Rocephin Inj 2,000 MG In NS Inj 100 / 100 100 ML @ 200 mls/hr IV.SIG Q24H [facility]NEST[facility] Rx#:[id number] Flagyl 500 MG Inj 100 ML @ 100 200 / 200 100 / 100 100 / 100 mls/hr IV.SIG Q8H ERNESTINA Rx#: [id number] Output: Urine Amount (Catheter) 750 / 750 Indwelling Urethral Catheter 750 / 750 Gastric Drainage 750 / 750 Nasogastric Tube 750 / 750 Other: Date of Last Bowel Movement 12/28/17 12/28/17 12/28/17 - Constitutional no acute distress - Routine HEENT Exam Head: Present: normocephalic ENT: Present: mucous membranes moist - Routine Respiratory Exam Present: CTA bilaterally - Routine Cardiovascular Exam Present: RRR - Routine Abdominal Exam Present: soft, normoactive bowel sounds, tenderness - Routine Skin Exam Present: intact, dry - Routine Neurological Exam Present: alert, oriented X3 - Urinary Catheter Management Indwelling Urethral Catheter Cath placed during this visit: yes Reason for continuing: Acute urinary retention Insertion date: 12/28/17 Insertion time: 05:00 <Taran Henriquez - Last Filed: 12/30/17 16:38> Vital signs: Vital Signs 12/29/17 18:00 12/29/17 19:39 12/29/17 20:00 Temperature 99 F Pulse Rate 82 80 85 Respiratory Rate 18 15 Blood Pressure 123/60 Pulse Oximetry 93 L 91 L 12/29/17 21:15 12/29/17 22:00 12/30/17 00:05 Temperature 98.3 F Pulse Rate 80 79 Respiratory Rate 15 Blood Pressure 112/56 L Pulse Oximetry 94 L 91 L 12/30/17 00:16 12/30/17 02:05 12/30/17 03:51 Temperature Pulse Rate 79 80 80 Respiratory Rate 16 16 Blood Pressure Pulse Oximetry 95 96 12/30/17 04:00 12/30/17 06:02 12/30/17 07:18 Temperature 98.3 F Pulse Rate 82 84 Respiratory Rate 15 Blood Pressure 123/58 L Pulse Oximetry 97 95 12/30/17 07:20 12/30/17 08:00 12/30/17 09:14 Temperature 98.6 F Pulse Rate 81 85 Respiratory Rate 14 18 Blood Pressure 129/58 L Pulse Oximetry 95 94 L 12/30/17 10:00 12/30/17 11:11 12/30/17 12:00 Temperature 98.2 F Pulse Rate 86 85 86 Respiratory Rate 17 18 Blood Pressure 140/66 Pulse Oximetry 96 98 12/30/17 14:00 12/30/17 14:33 12/30/17 15:23 Temperature Pulse Rate 82 86 Respiratory Rate 17 16 Blood Pressure Pulse Oximetry 12/30/17 16:00 Temperature 99.2 F Pulse Rate 82 Respiratory Rate 18 Blood Pressure 133/60 Pulse Oximetry 98 Intake & Output 12/29/17 12/30/17 12/30/17 18:59 06:59 18:59 Intake Total 2300 / 2300 100 / 100 1100 / 1100 Output Total 1500 / 1500 Balance 800 / 800 100 / 100 1100 / 1100 Intake: IV 2300 / 2300 100 / 100 1100 / 1100 NS Inj 1,000 ML @ 100 mls/hr IV 2000 / 2000 1000 / 1000 .CONT .Q10H [facility] Rx#:[id number] Rocephin Inj 2,000 MG In NS Inj 100 / 100 100 ML @ 200 mls/hr IV.SIG Q24H [facility]NEST[facility] Rx#:[id number] Flagyl 500 MG Inj 100 ML @ 100 200 / 200 100 / 100 100 / 100 mls/hr IV.SIG Q8H ERNESTINA Rx#: [id number] Output: Urine Amount (Catheter) 750 / 750 Indwelling Urethral Catheter 750 / 750 Gastric Drainage 750 / 750 Nasogastric Tube 750 / 750 Other: Date of Last Bowel Movement 12/28/17 12/28/17 12/30/17 - Urinary Catheter Management Indwelling Urethral Catheter Cath placed during this visit: no <Rachael Mejias - Last Filed: 12/30/17 17:20> Results - Labs CBC & Chem 7: 12/30/17 10:17 12/30/17 10:17 Laboratory Results - last 24 hr 12/27/17 12/29/17 12/29/17 17:50 19:56 23:29 WBC RBC Hgb Hct MCV MCH MCHC RDW Plt Count MPV Neut % (Auto) Lymph % (Auto) [place] % (Auto) Eos % (Auto) Baso % (Auto) Neut # (Auto) Lymph # (Auto) [place] # (Auto) Eos # (Auto) Baso # (Auto) WBC Differential Differential Comment Sodium Potassium Chloride Carbon Dioxide Anion Gap BUN Creatinine Estimated GFR POC Glucose 210 H 213 H Random Glucose Calcium Prot Corrected Calcium Total Bilirubin AST ALT Alkaline Phosphatase Total Protein Albumin MTS Gel Crossmatch See Detail 12/30/17 12/30/17 12/30/17 03:29 08:20 10:17 WBC 8.3 RBC 3.15 L Hgb 9.5 L Hct 28.9 L MCV 91.6 MCH 30.2 MCHC 33.0 RDW 14.8 Plt Count 174 MPV 10.5 Neut % (Auto) 75.2 H Lymph % (Auto) 11.4 [place] % (Auto) 10.1 H Eos % (Auto) 2.6 Baso % (Auto) 0.7 Neut # (Auto) 6.2 Lymph # (Auto) 0.9 L [place] # (Auto) 0.8 Eos # (Auto) 0.2 Baso # (Auto) 0.1 WBC Differential . Differential Comment Auto diff final Sodium Potassium Chloride Carbon Dioxide Anion Gap BUN Creatinine Estimated GFR POC Glucose 190 H 197 H Random Glucose Calcium Prot Corrected Calcium Total Bilirubin AST ALT Alkaline Phosphatase Total Protein Albumin MTS Gel Crossmatch 12/30/17 12/30/17 12/30/17 10:17 11:55 16:14 WBC RBC Hgb Hct MCV MCH MCHC RDW Plt Count MPV Neut % (Auto) Lymph % (Auto) [place] % (Auto) Eos % (Auto) Baso % (Auto) Neut # (Auto) Lymph # (Auto) [place] # (Auto) Eos # (Auto) Baso # (Auto) WBC Differential Differential Comment Sodium 141 Potassium 3.4 L Chloride 104 D Carbon Dioxide 28.1 Anion Gap 9 BUN 32 H Creatinine 1.00 Estimated GFR 58 L POC Glucose 219 H 198 H Random Glucose 189 H Calcium 7.3 L* Prot Corrected Calcium 7.9 L Total Bilirubin 0.3 AST 31 ALT 40 Alkaline Phosphatase 99 Total Protein 5.9 L Albumin 2.3 L MTS Gel Crossmatch <Taran Henriquez - Last Filed: 12/30/17 16:38> - Labs CBC & Chem 7: 12/30/17 10:17 12/30/17 10:17 Laboratory Results - last 24 hr 12/27/17 12/29/17 12/29/17 17:50 19:56 23:29 WBC RBC Hgb Hct MCV MCH MCHC RDW Plt Count MPV Neut % (Auto) Lymph % (Auto) [place] % (Auto) Eos % (Auto) Baso % (Auto) Neut # (Auto) Lymph # (Auto) [place] # (Auto) Eos # (Auto) Baso # (Auto) WBC Differential Differential Comment Sodium Potassium Chloride Carbon Dioxide Anion Gap BUN Creatinine Estimated GFR POC Glucose 210 H 213 H Random Glucose Calcium Prot Corrected Calcium Total Bilirubin AST ALT Alkaline Phosphatase Total Protein Albumin MTS Gel Crossmatch See Detail 12/30/17 12/30/17 12/30/17 03:29 08:20 10:17 WBC 8.3 RBC 3.15 L Hgb 9.5 L Hct 28.9 L MCV 91.6 MCH 30.2 MCHC 33.0 RDW 14.8 Plt Count 174 MPV 10.5 Neut % (Auto) 75.2 H Lymph % (Auto) 11.4 [place] % (Auto) 10.1 H Eos % (Auto) 2.6 Baso % (Auto) 0.7 Neut # (Auto) 6.2 Lymph # (Auto) 0.9 L [place] # (Auto) 0.8 Eos # (Auto) 0.2 Baso # (Auto) 0.1 WBC Differential . Differential Comment Auto diff final Sodium Potassium Chloride Carbon Dioxide Anion Gap BUN Creatinine Estimated GFR POC Glucose 190 H 197 H Random Glucose Calcium Prot Corrected Calcium Total Bilirubin AST ALT Alkaline Phosphatase Total Protein Albumin MTS Gel Crossmatch 12/30/17 12/30/17 12/30/17 10:17 11:55 16:14 WBC RBC Hgb Hct MCV MCH MCHC RDW Plt Count MPV Neut % (Auto) Lymph % (Auto) [place] % (Auto) Eos % (Auto) Baso % (Auto) Neut # (Auto) Lymph # (Auto) [place] # (Auto) Eos # (Auto) Baso # (Auto) WBC Differential Differential Comment Sodium 141 Potassium 3.4 L Chloride 104 D Carbon Dioxide 28.1 Anion Gap 9 BUN 32 H Creatinine 1.00 Estimated GFR 58 L POC Glucose 219 H 198 H Random Glucose 189 H Calcium 7.3 L* Prot Corrected Calcium 7.9 L Total Bilirubin 0.3 AST 31 ALT 40 Alkaline Phosphatase 99 Total Protein 5.9 L Albumin 2.3 L MTS Gel Crossmatch <Rachael Mejias - Last Filed: 12/30/17 17:20> Assessment and Plan - Plan Assessment: - Nausea, vomiting, abdominal distention and pain, constipation Today began having excessive burping and now has had multiple episodes of emesis today. Reportedly pt had coffee ground emesis, but the emesis she points to on her gown appears to be more brown in color. Pt is unsure when her last BM was, has had enemas, laxatives, and stool softeners and states has not had any significant stool. Does report passing flatus. States abdomen feels distended. Complaining of generalized abdominal pain, intermittent, described as dull. Was previously tolerating a regular diet but a few days ago had to be switched to liquids. KUB on 12/24 showed normal bowel gas pattern. Has never had EGD or colonoscopy. Denies ETOH, smoking, illicit drugs, NSAID use. Only previous abdominal surgery was C- section Of note, pt is on Elqiuis last dose was this morning (12/30/17) s/p EGD on 12/28/17 1. Esophagitis distal esophagus- ischemic changes of gastric wall involving fundus and body-greater curvature -biopsy,rest stomach normal 2. Retroflexed views revealed a hiatal hernia S/P Decompressive colonoscopy on 12/28/17 1. Diverticulosis sigmoid,descending ischemic colitis in right colon, cecum cecum not very dilated bowel looks viable overall 2. A rectal tube was left in place 3. Retroflexed views revealed internal hemorrhoids 4. Revealed internal hemorrhoids CT on 12/27/17 showed large amount of stools, gastric distension, stricture in the region of the gastric antrum, low density lesions of the spleen KUB 12/28/17 persistent abnormally dilated segment of the colon but overall bowel gas pattern appears less dilated Doppler US negative for DVT Vascular surgeon consulted and didn't recommend surgical intervention Palliative care on the case slight drop in hgb today, no bleeding in the stools, no bleeding from NGT Plan: KUB in the am and pending results might start trickle feed NGT to LIWS rectal tube in place Monitor hh Transfuse as needed Protonix Vascular/general surgeon on the case Palliative care on the case Needs repeat EGD in one week if stable and colonoscopy in one month Further recommendations to follow Pt has been seen and examined by myself and Dr. Mejias and this note is written on her behalf <Taran Henriquez - Last Filed: 12/30/17 16:38> - Attending Attestation seen, examined agree with above <Rachael Mejias - Last Filed: 12/30/17 17:20>
--- NOTE | 2017-12-30 18:14 | CT ---
EXAM DATE: 12/30/2017 5:57 PM EDT AGE/SEX: 57 years / Female INDICATIONS: Ear pain, recurrent ear infections CLINICAL DATA: This is the patient's initial encounter. Patient reports that signs and symptoms have been present for 1 week and indicates a pain score of 10/10. MEDICAL/SURGICAL HISTORY: Transient ischemic attack. Congestive heart failure. Renal failure, acu te. Psoriasis, Hypertension, Diabetic Pacemaker. RADIATION DOSE: 59.43 CTDI (mGy) ; Patient body habitus COMPARISON: No prior exams available for comparison. TECHNIQUE: Thin section acquisition was performed without contrast in the coronal and axial planes u sing a multirow detector CT scanner. Using automated exposure control and adjustment of the mA and/o r kV according to patient size, radiation dose was kept as low as reasonably achievable to obtain opt imal diagnostic quality images. DICOM format image data is available electronically for review and c omparison. FINDINGS: Ossicles are intact. Mild partial opacification within the middle ear bilaterally. Mild partial opaci fication of the anterior mastoid air cells bilaterally. No evidence of focal bone erosion.. No eviden ce of fracture. Internal auditory canals are unremarkable. Cochlea and semicircular canals within nor mal limits bilaterally. Moderate diffuse mucosal thickening of the left maxillary sinus. Mild mucosal thickening in the right maxillary sinus. Moderate severity bilateral ethmoid sinus partial opacification most prominent post eriorly on the right with an air-fluid level seen posteriorly on the right. Moderate severity left-si ded sphenoid sinus partial opacification. Mild right-sided sphenoid sinus partial opacification. [place] sinuses are clear. Orbits are intact. No acute intracranial findings identified. Mild symmetric soft tissue prominence o f the tonsillar pillars likely representing hypertrophy. CONCLUSION: 1. Mild partial opacification of the middle ear bilaterally and mild partial opacification of the an terior mastoid air cells bilaterally. No evidence of focal bone erosion. Ossicles are intact. 2. Moderate severity sinusitis most prominent in the posterior right ethmoid sinus with air-fluid le hai seen in this region suggesting acute sinusitis. Electronically signed by: Dre Roy MD 12/30/2017 6:12 PM EDT
[2017-12-30] MEDS: Sod Chloride 0.9% Inj 1,000 ML IV.CONT SCH ×2 (19:40→19:41)
[2017-12-30] MEDS: Budesonide-Formoterol 160/4.5 MCG 6 GM Inhaler INH SCH ×2 (19:41→20:46)
[2017-12-31] MEDS: Acetaminophen-HYDROcodone 325/7.5 Liq 15 ML UDC NG/OG PRN ×4 (00:18→23:13)
[2017-12-31] MEDS: Insulin NovoLIN Regular Correctional Sugar Inj SQ SCH ×5 (04:24→20:44)
[2017-12-31 05:09] LABS: Baso # (Auto) 0.1 th/mm3 (0.0-0.2); Eos # (Auto) 0.3 th/mm3 (0.0-0.4); Hematocrit 29.6 % (35.0-46.0); Hemoglobin 9.7 gm/dL (11.6-15.3); Lymph # (Auto) 1.3 th/mm3 (1.0-4.8); Lymph % (Auto) 14.9 % (9.0-44.0); Mean Corpuscular HGB Conc 32.8 % (32.0-36.0); Mean Corpuscular Hemoglobin 30.2 pg (27.0-34.0); Mean Corpuscular Volume 92.3 fL (80.0-100.0); Mean Platelet Volume 10.4 fL (7.0-11.0); Mono # (Auto) 0.8 th/mm3 (0.0-0.9); Mono % (Auto) 9.7 % (0.0-8.0); Neut % (Auto) 71.4 % (16.0-70.0); Platelet Count 204 th/mm3 (150-450); Red Blood Count 3.21 mil/mm3 (4.00-5.30); Red Cell Distribution Width 14.8 % (11.6-17.2); White Blood Count 8.4 th/mm3 (4.0-11.0)
[2017-12-31 05:27] LABS: Alanine Aminotransferase 30 U/L (10-53); Albumin 2.4 g/dL (3.4-5.0); Alkaline Phosphatase 93 U/L (45-117); Anion Gap 9 meq/L (5-15); Aspartate Aminotransferase 22 U/L (15-37); Blood Urea Nitrogen 24 mg/dL (7-18); Calcium 7.9 mg/dL (8.5-10.1); Carbon Dioxide 29.4 meq/L (21.0-32.0); Chloride 102 meq/L (98-107); Glomerular Filtration Rate 80 mL/min (>89); Glucose,Random 190 mg/dL (74-106); Potassium 3.8 meq/L (3.5-5.1); Sodium 140 meq/L (136-145); Total Protein 6.2 g/dL (6.4-8.2)
--- NOTE | 2017-12-31 06:15 | XR ---
EXAM DATE: 12/31/2017 5:24 AM EDT AGE/SEX: 57 years / Female INDICATIONS: Abdominal pain. CLINICAL DATA: This is the patient's subsequent encounter. Patient reports that signs and symptoms h ave been present for 1 week and indicates a pain score of 8/10. MEDICAL/SURGICAL HISTORY: . Transient ischemic attack. Congestive heart failure. Renal failure, acute. Psoriasis, Hypertension, Diabetic. Pacemaker. [place] [facility] [place] KUB, [place]/2017. . FINDINGS: The abdominal bowel gas pattern is normal. No abnormal masses, calcifications, or organomegaly is s een. Catheter overlies the midline pelvis could be rectal tube. The osseous structures are unremarka ble. CONCLUSION: No dilated bowel loops. Electronically signed by: Gopi Sagastume MD 12/31/2017 6:14 AM EDT
--- NOTE | 2017-12-31 09:21 | P.PNGI ---
Subjective Interval history: Pt resting in bed, complaining of continued abdominal pain. Also reports she feels nauseous but has not had any emesis. <Maday Ratliff - Last Filed: 12/31/17 09:13> Physical Exam Vital signs: Vital Signs 12/30/17 09:14 12/30/17 10:00 12/30/17 11:01 Temperature Pulse Rate 86 85 Respiratory Rate 19 14 Blood Pressure 135/63 Pulse Oximetry 94 L 95 96 12/30/17 11:11 12/30/17 12:00 12/30/17 12:01 Temperature 98.2 F Pulse Rate 85 86 85 Respiratory Rate 17 18 15 Blood Pressure 140/66 140/66 Pulse Oximetry 96 98 98 12/30/17 13:01 12/30/17 14:00 12/30/17 14:01 Temperature Pulse Rate 84 82 82 Respiratory Rate 16 17 15 Blood Pressure 123/58 L 120/58 L Pulse Oximetry 90 L 89 L 91 L 12/30/17 14:33 12/30/17 15:01 12/30/17 15:23 Temperature Pulse Rate 82 86 Respiratory Rate 17 12 16 Blood Pressure 138/64 Pulse Oximetry 97 12/30/17 16:00 12/30/17 16:01 12/30/17 17:01 Temperature 99.2 F Pulse Rate 82 82 84 Respiratory Rate 18 19 19 Blood Pressure 133/60 133/60 132/60 Pulse Oximetry 98 98 96 12/30/17 17:12 12/30/17 17:57 12/30/17 18:00 Temperature Pulse Rate 84 90 85 Respiratory Rate 11 L 20 16 Blood Pressure 125/60 126/63 121/61 Pulse Oximetry 96 94 L 94 L 12/30/17 19:01 12/30/17 19:54 12/30/17 20:00 Temperature 98.1 F Pulse Rate 82 85 82 Respiratory Rate 16 16 21 Blood Pressure 128/61 131/62 Pulse Oximetry 98 97 97 12/30/17 20:01 12/30/17 21:01 12/30/17 22:00 Temperature Pulse Rate 83 84 81 Respiratory Rate 19 17 20 Blood Pressure 131/62 127/57 L Pulse Oximetry 97 95 96 12/30/17 22:01 12/30/17 22:40 12/30/17 23:01 Temperature Pulse Rate 81 81 Respiratory Rate 20 16 Blood Pressure 124/58 L 122/58 L Pulse Oximetry 95 98 96 12/30/17 23:38 12/31/17 00:00 12/31/17 00:01 Temperature 98.7 F Pulse Rate 80 83 82 Respiratory Rate 17 18 17 Blood Pressure 125/58 L 125/58 L Pulse Oximetry 96 97 12/31/17 01:01 12/31/17 02:00 12/31/17 02:01 Temperature Pulse Rate 81 80 80 Respiratory Rate 15 16 16 Blood Pressure 134/61 138/62 Pulse Oximetry 96 96 96 12/31/17 03:01 12/31/17 03:27 12/31/17 04:00 Temperature 99.1 F Pulse Rate 80 81 81 Respiratory Rate 16 13 17 Blood Pressure 138/65 144/65 H Pulse Oximetry 97 98 95 12/31/17 04:01 12/31/17 05:01 12/31/17 06:00 Temperature Pulse Rate 81 81 80 Respiratory Rate 16 17 18 Blood Pressure 144/65 H 133/63 Pulse Oximetry 95 97 96 12/31/17 06:01 12/31/17 07:43 Temperature Pulse Rate 82 Respiratory Rate 16 Blood Pressure 147/70 H Pulse Oximetry 96 96 Intake & Output 12/30/17 12/31/17 12/31/17 18:59 06:59 18:59 Intake Total 1200 / 1200 1500 / 1500 Output Total 1300 / 1300 1150 / 1150 Balance -100 / -100 350 / 350 Weight 202 kg Intake: IV 1200 / 1200 1500 / 1500 NS Inj 1,000 ML @ 100 mls/hr IV 1000 / 1000 0 / 0 .CONT .Q10H ERNESTINA Rx#:[id number] 1/2 Normal Saline Inj 1,000 ML 1000 / 1000 @ 84 mls/hr IV.CONT .[id number] ERNESTINA Rx#:[id number] KCl 20 mEq Premix Inj 20 meq In 100 / 100 100 / 100 100 ml @ 50 mls/hr IV.SIG Q2H PRN Rx#:[id number] Rocephin Inj 2,000 MG In NS Inj 200 / 200 100 ML @ 200 mls/hr IV.SIG Q24H ERNESTINA Rx#:[id number] Flagyl 500 MG Inj 100 ML @ 100 100 / 100 200 / 200 mls/hr IV.SIG Q8H ERNESTINA Rx#: [id number] Output: Urine Amount (Catheter) 650 / 650 550 / 550 Indwelling Urethral Catheter 650 / 650 550 / 550 Gastric Drainage 650 / 650 600 / 600 Nasogastric Tube 650 / 650 600 / 600 Other: Date of Last Bowel Movement 12/30/17 - Constitutional no acute distress - Routine HEENT Exam Head: Present: normocephalic, atraumatic - Routine Respiratory Exam Absent: accessory muscle use - Routine Abdominal Exam Present: soft, normoactive bowel sounds. Absent: tenderness Comments: morbidly obese - Routine Skin Exam Present: dry, warm - Routine Neurological Exam Present: alert, oriented X3 - Urinary Catheter Management Indwelling Urethral Catheter Cath placed during this visit: yes Reason for continuing: Acute urinary retention Insertion date: 12/28/17 Insertion time: 05:00 <Maday Ratliff - Last Filed: 12/31/17 09:13> Vital signs: Vital Signs 12/30/17 22:00 12/30/17 22:01 12/30/17 22:40 Temperature Pulse Rate 81 81 Respiratory Rate 20 20 Blood Pressure 124/58 L Pulse Oximetry 96 95 98 12/30/17 23:01 12/30/17 23:38 12/31/17 00:00 Temperature 98.7 F Pulse Rate 81 80 83 Respiratory Rate 16 17 18 Blood Pressure 122/58 L 125/58 L Pulse Oximetry 96 96 12/31/17 00:01 12/31/17 01:01 12/31/17 02:00 Temperature Pulse Rate 82 81 80 Respiratory Rate 17 15 16 Blood Pressure 125/58 L 134/61 Pulse Oximetry 97 96 96 12/31/17 02:01 12/31/17 03:01 12/31/17 03:27 Temperature Pulse Rate 80 80 81 Respiratory Rate 16 16 13 Blood Pressure 138/62 138/65 Pulse Oximetry 96 97 98 12/31/17 04:00 12/31/17 04:01 12/31/17 05:01 Temperature 99.1 F Pulse Rate 81 81 81 Respiratory Rate 17 16 17 Blood Pressure 144/65 H 144/65 H 133/63 Pulse Oximetry 95 95 97 12/31/17 06:00 12/31/17 06:01 12/31/17 07:01 Temperature Pulse Rate 80 82 82 Respiratory Rate 18 16 17 Blood Pressure 147/70 H 140/64 Pulse Oximetry 96 96 96 12/31/17 07:43 12/31/17 08:00 12/31/17 08:01 Temperature 99.1 F Pulse Rate 81 83 Respiratory Rate 17 17 Blood Pressure 140/65 Pulse Oximetry 96 97 97 12/31/17 09:01 12/31/17 10:00 12/31/17 10:01 Temperature Pulse Rate 83 83 83 Respiratory Rate 22 18 15 Blood Pressure 138/66 145/65 H Pulse Oximetry 96 96 96 12/31/17 11:01 12/31/17 12:00 12/31/17 12:01 Temperature Pulse Rate 83 82 84 Respiratory Rate 19 17 24 Blood Pressure 150/66 H 152/68 H Pulse Oximetry 96 96 96 12/31/17 13:01 12/31/17 14:00 12/31/17 14:01 Temperature Pulse Rate 81 88 86 Respiratory Rate 16 19 16 Blood Pressure 146/65 H 155/74 H Pulse Oximetry 96 96 95 12/31/17 14:09 12/31/17 15:01 12/31/17 16:00 Temperature Pulse Rate 82 87 90 Respiratory Rate 16 18 21 Blood Pressure 148/73 H Pulse Oximetry 96 93 L 12/31/17 16:01 12/31/17 17:01 12/31/17 19:34 Temperature Pulse Rate 89 91 H 89 Respiratory Rate 17 17 19 Blood Pressure 140/66 139/75 Pulse Oximetry 94 L 94 L 12/31/17 19:35 Temperature Pulse Rate Respiratory Rate Blood Pressure Pulse Oximetry 95 Intake & Output 12/31/17 12/31/17 01/01/18 06:59 18:59 06:59 Intake Total 1500 / 1500 1100 / 1100 1371 / 1371 Output Total 1150 / 1150 1150 / 1150 Balance 350 / 350 -50 / -50 1371 / 1371 Weight 202 kg Intake: IV 1500 / 1500 1100 / 1100 1371 / 1371 NS Inj 1,000 ML @ 100 mls/hr IV 0 / 0 .CONT .Q10H [facility] Rx#:[id number] 1/2 Normal Saline Inj 1,000 ML 1000 / 1000 1000 / 1000 1271 / 1271 @ 84 mls/hr IV.CONT .[id number] [facility]NEST[facility] Rx#:[id number] KCl 20 mEq Premix Inj 20 meq In 100 / 100 100 ml @ 50 mls/hr IV.SIG Q2H PRN Rx#:[id number] Rocephin Inj 2,000 MG In NS Inj 200 / 200 100 ML @ 200 mls/hr IV.SIG Q24H [facility]NESTINA Rx#:[id number] Flagyl 500 MG Inj 100 ML @ 100 200 / 200 100 / 100 100 / 100 mls/hr IV.SIG Q8H ERNESTINA Rx#: [id number] Output: Urine Amount (Catheter) 550 / 550 450 / 450 Indwelling Urethral Catheter 550 / 550 450 / 450 Gastric Drainage 600 / 600 700 / 700 Nasogastric Tube 600 / 600 700 / 700 Other: Date of Last Bowel Movement 12/30/17 - Urinary Catheter Management Indwelling Urethral Catheter Cath placed during this visit: no <Queenie Mcgovern - Last Filed: 12/31/17 21:47> Results - Labs CBC & Chem 7: 12/31/17 03:54 12/31/17 03:54 Laboratory Results - last 24 hr 12/30/17 12/30/17 12/30/17 10:17 10:17 11:55 WBC 8.3 RBC 3.15 L Hgb 9.5 L Hct 28.9 L MCV 91.6 MCH 30.2 MCHC 33.0 RDW 14.8 Plt Count 174 MPV 10.5 Neut % (Auto) 75.2 H Lymph % (Auto) 11.4 [place] % (Auto) 10.1 H Eos % (Auto) 2.6 Baso % (Auto) 0.7 Neut # (Auto) 6.2 Lymph # (Auto) 0.9 L [place] # (Auto) 0.8 Eos # (Auto) 0.2 Baso # (Auto) 0.1 WBC Differential . Differential Comment Auto diff final Sodium 141 Potassium 3.4 L Chloride 104 D Carbon Dioxide 28.1 Anion Gap 9 BUN 32 H Creatinine 1.00 Estimated GFR 58 L POC Glucose 219 H Random Glucose 189 H Calcium 7.3 L* Prot Corrected Calcium 7.9 L Total Bilirubin 0.3 AST 31 ALT 40 Alkaline Phosphatase 99 Total Protein 5.9 L Albumin 2.3 L 12/30/17 12/30/17 12/30/17 16:14 20:43 23:26 WBC RBC Hgb Hct MCV MCH MCHC RDW Plt Count MPV Neut % (Auto) Lymph % (Auto) [place] % (Auto) Eos % (Auto) Baso % (Auto) Neut # (Auto) Lymph # (Auto) [place] # (Auto) Eos # (Auto) Baso # (Auto) WBC Differential Differential Comment Sodium Potassium 3.9 Chloride Carbon Dioxide Anion Gap BUN Creatinine Estimated GFR POC Glucose 198 H 164 H Random Glucose Calcium Prot Corrected Calcium Total Bilirubin AST ALT Alkaline Phosphatase Total Protein Albumin 12/30/17 12/31/17 12/31/17 23:51 03:54 03:54 WBC 8.4 RBC 3.21 L Hgb 9.7 L Hct 29.6 L MCV 92.3 MCH 30.2 MCHC 32.8 RDW 14.8 Plt Count 204 MPV 10.4 Neut % (Auto) 71.4 H Lymph % (Auto) 14.9 [place] % (Auto) 9.7 H Eos % (Auto) 3.0 Baso % (Auto) 1.0 Neut # (Auto) 6.0 Lymph # (Auto) 1.3 [place] # (Auto) 0.8 Eos # (Auto) 0.3 Baso # (Auto) 0.1 WBC Differential . Differential Comment Auto diff final Sodium 140 Potassium 3.8 Chloride 102 Carbon Dioxide 29.4 Anion Gap 9 BUN 24 H Creatinine 0.75 Estimated GFR 80 L POC Glucose 167 H Random Glucose 190 H Calcium 7.9 L Prot Corrected Calcium Total Bilirubin 0.3 AST 22 ALT 30 Alkaline Phosphatase 93 Total Protein 6.2 L Albumin 2.4 L 12/31/17 12/31/17 04:23 08:48 WBC RBC Hgb Hct MCV MCH MCHC RDW Plt Count MPV Neut % (Auto) Lymph % (Auto) [place] % (Auto) Eos % (Auto) Baso % (Auto) Neut # (Auto) Lymph # (Auto) [place] # (Auto) Eos # (Auto) Baso # (Auto) WBC Differential Differential Comment Sodium Potassium Chloride Carbon Dioxide Anion Gap BUN Creatinine Estimated GFR POC Glucose 186 H 174 H Random Glucose Calcium Prot Corrected Calcium Total Bilirubin AST ALT Alkaline Phosphatase Total Protein Albumin - Imaging Impressions Temporal Bone CT 12/30/17 00:00 CONCLUSION: 1. Mild partial opacification of the middle ear bilaterally and mild partial opacification of the anterior mastoid air cells bilaterally. No evidence of focal bone erosion. Ossicles are intact. 2. Moderate severity sinusitis most prominent in the posterior right ethmoid sinus with air-fluid level seen in this region suggesting acute sinusitis. Abdomen X-Ray 12/31/17 00:00 CONCLUSION: No dilated bowel loops. <Bonnette,Maday - Last Filed: 12/31/17 09:13> - Labs CBC & Chem 7: 12/31/17 03:54 12/31/17 03:54 Laboratory Results - last 24 hr 12/30/17 12/30/17 12/31/17 23:26 23:51 03:54 WBC 8.4 RBC 3.21 L Hgb 9.7 L Hct 29.6 L MCV 92.3 MCH 30.2 MCHC 32.8 RDW 14.8 Plt Count 204 MPV 10.4 Neut % (Auto) 71.4 H Lymph % (Auto) 14.9 [place] % (Auto) 9.7 H Eos % (Auto) 3.0 Baso % (Auto) 1.0 Neut # (Auto) 6.0 Lymph # (Auto) 1.3 [place] # (Auto) 0.8 Eos # (Auto) 0.3 Baso # (Auto) 0.1 WBC Differential . Differential Comment Auto diff final Sodium Potassium 3.9 Chloride Carbon Dioxide Anion Gap BUN Creatinine Estimated GFR POC Glucose 167 H Random Glucose Calcium Total Bilirubin AST ALT Alkaline Phosphatase Total Protein Albumin 12/31/17 12/31/17 12/31/17 03:54 04:23 08:48 WBC RBC Hgb Hct MCV MCH MCHC RDW Plt Count MPV Neut % (Auto) Lymph % (Auto) [place] % (Auto) Eos % (Auto) Baso % (Auto) Neut # (Auto) Lymph # (Auto) [place] # (Auto) Eos # (Auto) Baso # (Auto) WBC Differential Differential Comment Sodium 140 Potassium 3.8 Chloride 102 Carbon Dioxide 29.4 Anion Gap 9 BUN 24 H Creatinine 0.75 Estimated GFR 80 L POC Glucose 186 H 174 H Random Glucose 190 H Calcium 7.9 L Total Bilirubin 0.3 AST 22 ALT 30 Alkaline Phosphatase 93 Total Protein 6.2 L Albumin 2.4 L 12/31/17 12/31/17 12:09 20:42 WBC RBC Hgb Hct MCV MCH MCHC RDW Plt Count MPV Neut % (Auto) Lymph % (Auto) [place] % (Auto) Eos % (Auto) Baso % (Auto) Neut # (Auto) Lymph # (Auto) [place] # (Auto) Eos # (Auto) Baso # (Auto) WBC Differential Differential Comment Sodium Potassium Chloride Carbon Dioxide Anion Gap BUN Creatinine Estimated GFR POC Glucose 165 H 173 H Random Glucose Calcium Total Bilirubin AST ALT Alkaline Phosphatase Total Protein Albumin - Imaging Impressions Abdomen X-Ray 12/31/17 00:00 CONCLUSION: No dilated bowel loops. <Queenie Mcgovern - Last Filed: 12/31/17 21:47> Assessment and Plan - Plan Assessment: - Nausea, vomiting, abdominal distention and pain, constipation- consult on (12/27 ) Today began having excessive burping and now has had multiple episodes of emesis today. Reportedly pt had coffee ground emesis, but the emesis she points to on her gown appears to be more brown in color. Pt is unsure when her last BM was, has had enemas, laxatives, and stool softeners and states has not had any significant stool. Does report passing flatus. States abdomen feels distended. Complaining of generalized abdominal pain, intermittent, described as dull. Was previously tolerating a regular diet but a few days ago had to be switched to liquids. KUB on 12/24 showed normal bowel gas pattern. Has never had EGD or colonoscopy. Denies ETOH, smoking, illicit drugs, NSAID use. Only previous abdominal surgery was C- section Of note, pt is on Elqiuis last dose was this morning CT abdomen and pelvis (12/27) Colonic distention with a large amount of stool as described, features most typical of a nonmechanical obstruction. Gastric distention without a perceptible mass. A stricture in the region of the gastric antrum with the in the differential. Duodenum is decompressed. There are scattered low-density lesions of the spleen, nonspecific but I believe they were present on the prior studies, just better seen today and probably benign. Decompressive colonoscopy (12/28) Diverticulosis sigmoid and descending colon. Ischemic colitis in the right colon, cecum. Cecum is not very dilated. Bowel overall looks viable. A rectal tube was left in place. Internal hemorrhoids. EGD (12/28) Esophagitis distal esophagus. Ischemic changes of gastric wall involving fundus and body- greater curvature -biopsy. Rest of the stomach appeared normal. Hiatal hernia (12/31) Pt remains in ICU. She is complaining of abdominal pain and nausea, denies any emesis. Abdomen is soft. KUB from this morning revealed no dilated bowel loops. According to RN, pt still having 600 mL of gastric output through NG overnight , will likely not tolerate TF at this high of output. Plan: NG to LIWS Start trickle feeds when output slows down Repeat EGD in a few days KUB in AM GS following- no surgical interventions planned Further recommendations to follow Pt has been seen and examined by myself and Dr. Mcgovern and this note is written on his behalf <Maday Ratliff - Last Filed: 12/31/17 09:13> - Plan Patient was seen and examined, agree with above note, still having discomfort of the abdomen and distention, out put from the PEG tube still high, we will recheck KUB tomorrow, may start trickle feeds <Queenie Mcgovern - Last Filed: 12/31/17 21:47>
--- NOTE | 2017-12-31 09:40 | MB ---
cc: Darren Hess MD DATE: 12/31/2017 CHIEF COMPLAINT: Bilateral ear pain. HISTORY OF PRESENT ILLNESS: The patient is a pleasant female who unfortunately is in the ICU who was recently extubated and noted to have bilateral ear pain. It is noted that it has been chronic in nature with acute exacerbations. Earlier this week, it was 8/10. She notes that she gets psoriasis as well. No noted vertigo. No current mastoid tenderness. PHYSICAL EXAMINATION: ENT: Ears had mild scaling and erythema in the ear canal consistent with eczematous dermatitis of the ear canal. The rest of her ENT evaluation was otherwise relatively unremarkable. ASSESSMENT: Bilateral eczematous dermatitis for which I recommended 2.5% hydrocortisone cream applied to the affected area with a Q-tip for twice a day for 2 weeks and then as needed afterwards. I also ordered a CT scan of the temporal bone because of the atypical ear pain she was having. This can be done as a routine basis, not at all urgent. Patient may up with ENT in 1-2 weeks. Also of note, there was no mastoid tenderness suggestive of any acute mastoiditis and there was no fluid noted behind the middle ear space either. The CT of the temporal bones is more of a precautionary measure. Darren Hess MD [facility]/rs , 08:48 AM , 08:55 AM
[2017-12-31] MEDS: Polyethylene Glycol 3350 17 GM Packet PO SCH (09:48)
[2017-12-31] MEDS: Pantoprazole Inj 40 MG Vial IV.PUSH SCH ×2 (09:48→20:44)
[2017-12-31] MEDS: Budesonide-Formoterol 160/4.5 MCG 6 GM Inhaler INH SCH ×2 (09:49→20:44)
[2017-12-31] MEDS: Hydrocortisone 2.5% Cream 30 GM Tube TOPICAL SCH ×2 (09:49→20:44)
--- NOTE | 2017-12-31 11:15 | P.PNIM ---
Subjective Interval history: The patient is a 57-year-old female with multiple medical comorbidities, which include hypertension, diabetes mellitus, morbid obesity, hypothyroidism, COPD, CHF with a previous pacemaker placement, was admitted under hospitalist service on 12/21/2017 for chest pain. During her hospital course, she was seen by cardiology and GI services. The patient went into renal failure on 12/27/2017 where her creatinine increased from 0.97 on arrival to 2.29. She was also complaining of abdominal distention associated with nausea and vomiting. The patient underwent CT abdomen and pelvis yesterday, which showed colonicdistention and gastric distention. She underwentupper endoscopy and a colonoscopy today by Dr. Mejias which showed distal esophagitis, ischemic changes of the gastric wall involving fundus and body, greater curvature in addition to ischemic colitis in the right colon, and sigmoid diverticulosis. Vascular Surgery was consulted. Of note, the patient was on Eliquis 5 mg b.i.d. at home. She remained on mechanical ventilation post-procedure and Critical Care Medicine was consulted for critical care management. Her laboratory today showed worsening renal function with a creatinine of 2.54. When seen, the patient is on full mechanical ventilation. Diuretics were discontinued. 12/29 Patient remains intubated given 2L boluses NS and Albumin overnight for hypotension MAP now 67mmHg. Afebrile. 12/30 Patient was extubated yesterday on BIPAP overnight. Awake and alert. Afebrile. 12/31. Patient is awake, alert. She reports continued abdominal discomfort. Denies any chest pain or shortness of breath. Physical Exam Vital signs: Vital Signs 12/30/17 12:00 12/30/17 12:01 12/30/17 13:01 Temperature 98.2 F Pulse Rate 86 85 84 Respiratory Rate 18 15 16 Blood Pressure 140/66 140/66 123/58 L Pulse Oximetry 98 98 90 L 12/30/17 14:00 12/30/17 14:01 12/30/17 14:33 Temperature Pulse Rate 82 82 Respiratory Rate 17 15 17 Blood Pressure 120/58 L Pulse Oximetry 89 L 91 L 12/30/17 15:01 12/30/17 15:23 12/30/17 16:00 Temperature 99.2 F Pulse Rate 82 86 82 Respiratory Rate 12 16 18 Blood Pressure 138/64 133/60 Pulse Oximetry 97 98 12/30/17 16:01 12/30/17 17:01 12/30/17 17:12 Temperature Pulse Rate 82 84 84 Respiratory Rate 19 19 11 L Blood Pressure 133/60 132/60 125/60 Pulse Oximetry 98 96 96 12/30/17 17:57 12/30/17 18:00 12/30/17 19:01 Temperature Pulse Rate 90 85 82 Respiratory Rate 20 16 16 Blood Pressure 126/63 121/61 128/61 Pulse Oximetry 94 L 94 L 98 12/30/17 19:54 12/30/17 20:00 12/30/17 20:01 Temperature 98.1 F Pulse Rate 85 82 83 Respiratory Rate 16 21 19 Blood Pressure 131/62 131/62 Pulse Oximetry 97 97 97 12/30/17 21:01 12/30/17 22:00 12/30/17 22:01 Temperature Pulse Rate 84 81 81 Respiratory Rate 17 20 20 Blood Pressure 127/57 L 124/58 L Pulse Oximetry 95 96 95 12/30/17 22:40 12/30/17 23:01 12/30/17 23:38 Temperature Pulse Rate 81 80 Respiratory Rate 16 17 Blood Pressure 122/58 L Pulse Oximetry 98 96 12/31/17 00:00 12/31/17 00:01 12/31/17 01:01 Temperature 98.7 F Pulse Rate 83 82 81 Respiratory Rate 18 17 15 Blood Pressure 125/58 L 125/58 L 134/61 Pulse Oximetry 96 97 96 12/31/17 02:00 12/31/17 02:01 12/31/17 03:01 Temperature Pulse Rate 80 80 80 Respiratory Rate 16 16 16 Blood Pressure 138/62 138/65 Pulse Oximetry 96 96 97 12/31/17 03:27 12/31/17 04:00 12/31/17 04:01 Temperature 99.1 F Pulse Rate 81 81 81 Respiratory Rate 13 17 16 Blood Pressure 144/65 H 144/65 H Pulse Oximetry 98 95 95 12/31/17 05:01 12/31/17 06:00 12/31/17 06:01 Temperature Pulse Rate 81 80 82 Respiratory Rate 17 18 16 Blood Pressure 133/63 147/70 H Pulse Oximetry 97 96 96 12/31/17 07:43 12/31/17 08:00 Temperature Pulse Rate 78 Respiratory Rate Blood Pressure Pulse Oximetry 96 Intake & Output 12/30/17 12/31/17 12/31/17 18:59 06:59 18:59 Intake Total 1200 / 1200 1500 / 1500 Output Total 1300 / 1300 1150 / 1150 Balance -100 / -100 350 / 350 Weight 202 kg Intake: IV 1200 / 1200 1500 / 1500 NS Inj 1,000 ML @ 100 mls/hr IV 1000 / 1000 0 / 0 .CONT .Q10H ERNESTINA Rx#:[id number] 1/2 Normal Saline Inj 1,000 ML 1000 / 1000 @ 84 mls/hr IV.CONT .[id number] ERNESTINA Rx#:[id number] KCl 20 mEq Premix Inj 20 meq In 100 / 100 100 / 100 100 ml @ 50 mls/hr IV.SIG Q2H PRN Rx#:[id number] Rocephin Inj 2,000 MG In NS Inj 200 / 200 100 ML @ 200 mls/hr IV.SIG Q24H ERNESTINA Rx#:[id number] Flagyl 500 MG Inj 100 ML @ 100 100 / 100 200 / 200 mls/hr IV.SIG Q8H ERNESTINA Rx#: [id number] Output: Urine Amount (Catheter) 650 / 650 550 / 550 Indwelling Urethral Catheter 650 / 650 550 / 550 Gastric Drainage 650 / 650 600 / 600 Nasogastric Tube 650 / 650 600 / 600 Other: Date of Last Bowel Movement 12/30/17 Narrative: GENERAL: Patient sitting up in bed. Morbidly obese. Appears comfortable. Alert and oriented 3. SKIN: Warm and dry. HEAD: Normocephalic. EYES: No scleral icterus. No injection or drainage. NECK: Supple, trachea midline. No JVD. CARDIOVASCULAR: Regular rate and rhythm without murmurs, gallops, or rubs. RESPIRATORY: Breath sounds equal bilaterally. No accessory muscle use. GASTROINTESTINAL: Abdomen soft, non-tender, nondistended. MUSCULOSKELETAL: No cyanosis, or edema. BACK: Nontender without obvious deformity. No CVA tenderness. - Urinary Catheter Management Indwelling Urethral Catheter Cath placed during this visit: yes Reason for continuing: Acute urinary retention Insertion date: 12/28/17 Insertion time: 05:00 Results - Labs CBC & Chem 7: 12/31/17 03:54 12/31/17 03:54 Laboratory Results - last 24 hr 12/30/17 12/30/17 12/30/17 11:55 16:14 20:43 WBC RBC Hgb Hct MCV MCH MCHC RDW Plt Count MPV Neut % (Auto) Lymph % (Auto) [place] % (Auto) Eos % (Auto) Baso % (Auto) Neut # (Auto) Lymph # (Auto) [place] # (Auto) Eos # (Auto) Baso # (Auto) WBC Differential Differential Comment Sodium Potassium Chloride Carbon Dioxide Anion Gap BUN Creatinine Estimated GFR POC Glucose 219 H 198 H 164 H Random Glucose Calcium Total Bilirubin AST ALT Alkaline Phosphatase Total Protein Albumin 12/30/17 12/30/17 12/31/17 23:26 23:51 03:54 WBC 8.4 RBC 3.21 L Hgb 9.7 L Hct 29.6 L MCV 92.3 MCH 30.2 MCHC 32.8 RDW 14.8 Plt Count 204 MPV 10.4 Neut % (Auto) 71.4 H Lymph % (Auto) 14.9 [place] % (Auto) 9.7 H Eos % (Auto) 3.0 Baso % (Auto) 1.0 Neut # (Auto) 6.0 Lymph # (Auto) 1.3 [place] # (Auto) 0.8 Eos # (Auto) 0.3 Baso # (Auto) 0.1 WBC Differential . Differential Comment Auto diff final Sodium Potassium 3.9 Chloride Carbon Dioxide Anion Gap BUN Creatinine Estimated GFR POC Glucose 167 H Random Glucose Calcium Total Bilirubin AST ALT Alkaline Phosphatase Total Protein Albumin 12/31/17 12/31/17 12/31/17 03:54 04:23 08:48 WBC RBC Hgb Hct MCV MCH MCHC RDW Plt Count MPV Neut % (Auto) Lymph % (Auto) [place] % (Auto) Eos % (Auto) Baso % (Auto) Neut # (Auto) Lymph # (Auto) [place] # (Auto) Eos # (Auto) Baso # (Auto) WBC Differential Differential Comment Sodium 140 Potassium 3.8 Chloride 102 Carbon Dioxide 29.4 Anion Gap 9 BUN 24 H Creatinine 0.75 Estimated GFR 80 L POC Glucose 186 H 174 H Random Glucose 190 H Calcium 7.9 L Total Bilirubin 0.3 AST 22 ALT 30 Alkaline Phosphatase 93 Total Protein 6.2 L Albumin 2.4 L - Imaging Impressions Temporal Bone CT 12/30/17 00:00 CONCLUSION: 1. Mild partial opacification of the middle ear bilaterally and mild partial opacification of the anterior mastoid air cells bilaterally. No evidence of focal bone erosion. Ossicles are intact. 2. Moderate severity sinusitis most prominent in the posterior right ethmoid sinus with air-fluid level seen in this region suggesting acute sinusitis. Abdomen X-Ray 12/31/17 00:00 CONCLUSION: No dilated bowel loops. Assessment and Plan - Assessment (1) Chest pain Code(s): R07.9 - Chest pain, unspecified Status: Acute (2) Dyspnea Code(s): R06.00 - Dyspnea, unspecified Status: Acute (3) Paced cardiac rhythm Status: Acute - Plan //Acute hypoxemic and hypercapnic respiratory failure. Extubated. Pulmonology consulted. // Ischemic changes of the gastric wall and descending ischemic colitis in the right colon. Continues on antibiotics. GI following. // History of congestive heart failure. Echo pending. // History of chronic obstructive pulmonary disease. //Diabetes mellitus. //History of hypertension. //Morbid obesity. // Hyponatremia. Resolved //Acute renal failure. Resolved. Nephrology following // Urinary tract infection. Mixed shreyas. //Leukocytosis. Resolved. Plan: Neuro: Awake and alert. Monitor neuro status. Avoid sedatives Pulm: Continue with oxygen and maintain sats >92%. Bronchodilators, IS NIPPV PRN for resp distress = Consult pulmonology due to suspected sleep apnea. Avoid oversedation. CV: Monitor HR and BP and maintain MAP> 65 mmHg. Lactic acid 1.7. On NS@100ml/hr, for 2D echo = Echo pending : Monitor renal function, I's and O's and avoid nephrotoxins. Renal is following- Dr. Guzman =Renal function is better Cr: 0.75 from 2.47 GI: Keep n.p.o. on Protonix 40 mg daily for GI prophylaxis. s/p EGD, colonoscopy: ischemic changes of the gastric wall and ischemic colitis of the right colon. GI, Surgery following = Still with 600 mL output from OG tube. Possible trickle feeds as per GI when this goes down. ID: //Sinusitis //Ischemic colitis = Reviewed CT with possible ethmoid sinusitis. = Leukocytosis has resolved. = continue with abx(Rocephin and Flagyl). Monitor for signs of infections(fever and WBC). Heme: Monitor CBC and coags. Endo: SSI, medium scale with Accu-Cheks q.4 for glycemic control. //GI prophylaxis with Protonix //DVT prophylaxis with heparin subcutaneously. Doppler US LE negative for DVT 12/28 Palliative Care is following Code status: Full code Discharge Planning: PT consult pending Expect to take some time. Will need rehab Will need GI clearance. (1) Chest pain Qualifiers: Chest pain type: unspecified Qualified Code(s): R07.9 - Chest pain, unspecified (2) Dyspnea Qualifiers: Dyspnea type: shortness of breath Qualified Code(s): R06.02 - Shortness of breath; R06.00 - Dyspnea, unspecified; R06.01 - Orthopnea
[2017-12-31] MEDS: Sodium Chloride 0.45 % Inj 1,000 ML IV.CONT SCH ×3 (12:21→22:29)
[2017-12-31] MEDS: ALPRAZolam 0.5 MG Tablet PO PRN (14:06)
--- NOTE | 2017-12-31 16:01 | P.PNPAL ---
Reason for Visit Reason for visit: a. To assist with evaluation and management of symptoms including: pain; dyspnea; constipation b. To assist medical decision maker(s) with: better understanding of current medical conditions; weighing benefits/burdens of medical treatment options; making medical treatment decisions. Subjective Subjective/Interval History: Ms. Mace has been extubated and is now awake, alert, conversant on nasal cannula . Patient is able to provide me with some more history... * Pain: She normally has severe neuropathic pain in both upper and lower extremities. this frequently hits level 10. She has seen Dr. Vela for this but has not been able to leave the house to visit dr. Vela for a year. She reports that codeine causes severe itching. In the past she has been on extended release morphine 15 mg q 12 hours ATC. She has not been on morphine for a year. She normally has been using acetaminophen. * Constipation: This has been an ongoing problem for her. Normal for her has been going about every 5-7 days. This had gone up to q 8-10 days. Prior to her hospitalization she had gone over 20 days without moving her bowels. There was no medication change or other change she could attribute this to. She was having some abdominal pain associated with the constipation. * GI bleeding: She was not aware of any blood in her stools but CNAs and family would change her diapers and she did not see her won stool. * Hospitalizations: She says she gets hospitalized at [facility] AND [facility] She says she is hospitalized every 1-2 years for heart , lung, or constipation issues. * Weight has been relatively stable. Patient is not requesting a change in medication regimen now. She understands the reluctance of increasing opiates given the fragile respiratory status. She denies SOB while on 02. She reports mild abdominal pain at time of my visit -- it is mostly in the subxyphoid area and she has tenderness there as well. She had complained of ear pain (reaching level 8 / 10 discomfort) and has had an ENT consult ENT noted bilateral eczmatous vs psoriatic dermatitis in both ears and recommended 2.5 % hydrocortisone cream. He ordered CT of the temporal bones which showed: Temporal Bone CT 12/30/17 00:00 CONCLUSION: 1. Mild partial opacification of the middle ear bilaterally and mild partial opacification of the anterior mastoid air cells bilaterally. No evidence of focal bone erosion. Ossicles are intact. 2. Moderate severity sinusitis most prominent in the posterior right ethmoid sinus with air-fluid level seen in this region suggesting acute sinusitis. We reviewed her hospital course and problems at length including how close to she appeared just last Sunday. She confirmed her one year of bedbound status. We then discussed goals of medical treatment. Ms. Mace understands how ill she is and that she could decompensate again at any time. * Code Status: She desires FULL CODE status. She says, " I still have a 17 y/ o daughter who needs her mother. I have to fight to stay alive for her." * Decision making: She is quite clear that she does NOT want her adult child to be her surrogate. She is still unsure whether to designate her mother or her partner. Her mother is expected to arrive from out of state later today. Patient understands that under [place] law that her mother would be the proxy decision maker unless the patient specifies otherwise. * I emphasized the importance of having conversations with both her mother and her partner regarding code status, what gave her life meaning and purpose, and what type of clinical condition would NOT be worth her fighting for. She promised to have these conversations. . Family/Friend Interactions: No family / friends at bedside. . Advance Directives Living Will: Never completed Health Care Surrogate: Never completed Durable Power of Reception Agent: Never completed Health Care Surrogate Name and Number: No designation of health care surrogate. Documented care wishes:: No written documentation of health care goals/preferences . Significant change in goals:: Patient has verbally requested FULL CODE status. . Objective Vital Signs: Vital Signs 12/30/17 15:23 12/30/17 16:00 12/30/17 16:01 Temperature 99.2 F Pulse Rate 86 82 82 Respiratory Rate 16 18 19 Blood Pressure 133/60 133/60 Pulse Oximetry 98 98 12/30/17 17:01 12/30/17 17:12 12/30/17 17:57 Temperature Pulse Rate 84 84 90 Respiratory Rate 19 11 L 20 Blood Pressure 132/60 125/60 126/63 Pulse Oximetry 96 96 94 L 12/30/17 18:00 12/30/17 19:01 12/30/17 19:54 Temperature Pulse Rate 85 82 85 Respiratory Rate 16 16 16 Blood Pressure 121/61 128/61 Pulse Oximetry 94 L 98 97 12/30/17 20:00 12/30/17 20:01 12/30/17 21:01 Temperature 98.1 F Pulse Rate 82 83 84 Respiratory Rate 21 19 17 Blood Pressure 131/62 131/62 127/57 L Pulse Oximetry 97 97 95 12/30/17 22:00 12/30/17 22:01 12/30/17 22:40 Temperature Pulse Rate 81 81 Respiratory Rate 20 20 Blood Pressure 124/58 L Pulse Oximetry 96 95 98 12/30/17 23:01 12/30/17 23:38 12/31/17 00:00 Temperature 98.7 F Pulse Rate 81 80 83 Respiratory Rate 16 17 18 Blood Pressure 122/58 L 125/58 L Pulse Oximetry 96 96 12/31/17 00:01 12/31/17 01:01 12/31/17 02:00 Temperature Pulse Rate 82 81 80 Respiratory Rate 17 15 16 Blood Pressure 125/58 L 134/61 Pulse Oximetry 97 96 96 12/31/17 02:01 12/31/17 03:01 12/31/17 03:27 Temperature Pulse Rate 80 80 81 Respiratory Rate 16 16 13 Blood Pressure 138/62 138/65 Pulse Oximetry 96 97 98 12/31/17 04:00 12/31/17 04:01 12/31/17 05:01 Temperature 99.1 F Pulse Rate 81 81 81 Respiratory Rate 17 16 17 Blood Pressure 144/65 H 144/65 H 133/63 Pulse Oximetry 95 95 97 12/31/17 06:00 12/31/17 06:01 12/31/17 07:43 Temperature Pulse Rate 80 82 Respiratory Rate 18 16 Blood Pressure 147/70 H Pulse Oximetry 96 96 96 12/31/17 08:00 12/31/17 12:00 12/31/17 14:09 Temperature 99.1 F Pulse Rate 78 82 82 Respiratory Rate 16 Blood Pressure Pulse Oximetry Intake & Output 12/30/17 12/31/17 12/31/17 18:59 06:59 18:59 Intake Total 1200 / 1200 1500 / 1500 1000 / 1000 Output Total 1300 / 1300 1150 / 1150 Balance -100 / -100 350 / 350 1000 / 1000 Weight 202 kg Intake: IV 1200 / 1200 1500 / 1500 1000 / 1000 NS Inj 1,000 ML @ 100 mls/hr IV 1000 / 1000 0 / 0 .CONT .Q10H ERNESTINA Rx#:[id number] 1/2 Normal Saline Inj 1,000 ML 1000 / 1000 1000 / 1000 @ 84 mls/hr IV.CONT .[id number] ERNESTINA Rx#:[id number] KCl 20 mEq Premix Inj 20 meq In 100 / 100 100 / 100 100 ml @ 50 mls/hr IV.SIG Q2H PRN Rx#:[id number] Rocephin Inj 2,000 MG In NS Inj 200 / 200 100 ML @ 200 mls/hr IV.SIG Q24H ERNESTINA Rx#:[id number] Flagyl 500 MG Inj 100 ML @ 100 100 / 100 200 / 200 mls/hr IV.SIG Q8H ERNESTINA Rx#: [id number] Output: Urine Amount (Catheter) 650 / 650 550 / 550 Indwelling Urethral Catheter 650 / 650 550 / 550 Gastric Drainage 650 / 650 600 / 600 Nasogastric Tube 650 / 650 600 / 600 Other: Date of Last Bowel Movement 12/30/17 12/30/17 . Physical Exam: CONSTITUTIONAL/GENERAL: This is a morbidly obese patient, awake, alert, conversant in an MICU bed. Able to smile. TUBES/LINES/DRAINS: NG tube; rectal tube; lau catheter; NC 02. SKIN: No jaundice. Psoriatic plaques. Unroofed bullae on toes. Skin temperature appropriate. Not diaphoretic. EYES: Pupils equal and round. Extraocular motions intact. No scleral icterus. No injection or drainage. Fundi not examined. ENT: Unable to evaluate hearing. Nose without bleeding or purulent drainage. Throat without visible erythema, exudates, masses, or lesions . NECK: Trachea midline. Obese and difficult to examine. No palpable thyroid enlargement or nodularity. CARDIOVASCULAR: Paced rhythm without murmurs, gallops, or rubs. No JVD. Peripheral pulses symmetric very difficult to palpate due to level of obesity. RESPIRATORY/CHEST: Symmetric, unlabored respirations. Clear to auscultation. Breath sounds equal bilaterally but quite distant. No wheezes, rales, or rhonchi. GASTROINTESTINAL: Abdomen morbidly obese with large panniculus. Soft, no obvious tenderness. No hepato-splenomegaly, or palpable masses but VERY difficult to assess due to level of obesity. No guarding. Bowel sounds present. GENITOURINARY: Without palpable bladder distension. Lau catheter in place. MUSCULOSKELETAL: Extremities without clubbing, cyanosis. Edema noted in feet and hands. No mottling. LYMPHATICS: Nor examined. NEUROLOGICAL: Awake and alert. Motor and sensory grossly within normal limits. Follows commands. Cognitively sharp. Moves all extremities. PSYCHIATRIC: No obvious anxiety/depression. no apparent hallucinations or other psychotic thought process. Diagnostic Tests Laboratory: Laboratory Results - last 72 hr 12/27/17 12/28/17 12/28/17 17:50 16:57 17:28 WBC RBC Hgb Hct MCV MCH MCHC RDW Plt Count MPV Neut % (Auto) Lymph % (Auto) [place] % (Auto) Eos % (Auto) Baso % (Auto) Neut # (Auto) Lymph # (Auto) [place] # (Auto) Eos # (Auto) Baso # (Auto) WBC Differential Differential Comment Puncture Site Patient Temperature O2 Saturation ABG pH ABG pCO2 ABG pO2 ABG HCO3 ABG O2 Content ABG Base Excess ABG Methemoglobin Magdiel Test Hemoglobin Carboxyhemoglobin O2 Delivery Device Vent Setting Inspired O2 Critical Value Sodium Potassium Chloride Carbon Dioxide Anion Gap BUN Creatinine Estimated GFR POC Glucose 247 H Random Glucose Lactic Acid 1.7 Calcium Prot Corrected Calcium Phosphorus Total Bilirubin AST ALT Alkaline Phosphatase Total Protein Albumin MTS Gel Crossmatch See Detail 12/28/17 12/28/17 12/28/17 17:28 17:28 19:43 WBC 11.2 H RBC 3.67 L Hgb 11.2 L Hct 33.2 L MCV 90.6 MCH 30.4 MCHC 33.6 RDW 15.0 Plt Count 152 MPV 11.5 H Neut % (Auto) 79.4 H Lymph % (Auto) 7.2 L [place] % (Auto) 12.7 H Eos % (Auto) 0.3 Baso % (Auto) 0.4 Neut # (Auto) 8.9 H Lymph # (Auto) 0.8 L [place] # (Auto) 1.4 H Eos # (Auto) 0.0 Baso # (Auto) 0.0 WBC Differential . Differential Comment Auto diff final Puncture Site Patient Temperature O2 Saturation ABG pH ABG pCO2 ABG pO2 ABG HCO3 ABG O2 Content ABG Base Excess ABG Methemoglobin Magdiel Test Hemoglobin Carboxyhemoglobin O2 Delivery Device Vent Setting Inspired O2 Critical Value Sodium 133 L Potassium 4.1 Chloride 94 L Carbon Dioxide 31.2 Anion Gap 8 BUN 45 H Creatinine 2.27 H Estimated GFR 22 L POC Glucose 262 H Random Glucose 246 H Lactic Acid Calcium 8.2 L Prot Corrected Calcium Phosphorus Total Bilirubin AST ALT Alkaline Phosphatase Total Protein Albumin MTS Gel Crossmatch 12/28/17 12/28/17 12/29/17 19:51 23:25 03:45 WBC RBC Hgb Hct MCV MCH MCHC RDW Plt Count MPV Neut % (Auto) Lymph % (Auto) [place] % (Auto) Eos % (Auto) Baso % (Auto) Neut # (Auto) Lymph # (Auto) [place] # (Auto) Eos # (Auto) Baso # (Auto) WBC Differential Differential Comment Puncture Site Right radial Patient Temperature 98.6 O2 Saturation 94 ABG pH 7.42 ABG pCO2 47 H ABG pO2 86 ABG HCO3 30 H ABG O2 Content 14.6 ABG Base Excess 5.6 H ABG Methemoglobin 1.4 Magdiel Test Present Hemoglobin 11.0 L Carboxyhemoglobin 1.1 O2 Delivery Device Ventilator Vent Setting Prvc/ ac Inspired O2 50 Critical Value No Sodium 136 Potassium 4.1 Chloride 96 L Carbon Dioxide 32.2 H Anion Gap 8 BUN 51 H Creatinine 2.47 H Estimated GFR 20 L POC Glucose 252 H Random Glucose 226 H Lactic Acid Calcium 7.9 L Prot Corrected Calcium Phosphorus 4.3 Total Bilirubin 0.4 AST 86 H ALT 74 H Alkaline Phosphatase 108 Total Protein 6.3 L D Albumin 2.5 L MTS Gel Crossmatch 12/29/17 12/29/17 12/29/17 03:45 03:59 11:56 WBC 11.3 H RBC 3.48 L Hgb 10.5 L Hct 32.1 L MCV 92.4 MCH 30.1 MCHC 32.6 RDW 14.9 Plt Count 159 MPV 11.3 H Neut % (Auto) 75.1 H Lymph % (Auto) 10.3 [place] % (Auto) 12.7 H Eos % (Auto) 1.0 Baso % (Auto) 0.9 Neut # (Auto) 8.5 H Lymph # (Auto) 1.2 [place] # (Auto) 1.4 H Eos # (Auto) 0.1 Baso # (Auto) 0.1 WBC Differential . Differential Comment Auto diff final Puncture Site Patient Temperature O2 Saturation ABG pH ABG pCO2 ABG pO2 ABG HCO3 ABG O2 Content ABG Base Excess ABG Methemoglobin Magdiel Test Hemoglobin Carboxyhemoglobin O2 Delivery Device Vent Setting Inspired O2 Critical Value Sodium Potassium Chloride Carbon Dioxide Anion Gap BUN Creatinine Estimated GFR POC Glucose 237 H 219 H Random Glucose Lactic Acid Calcium Prot Corrected Calcium Phosphorus Total Bilirubin AST ALT Alkaline Phosphatase Total Protein Albumin MTS Gel Crossmatch 12/29/17 12/29/17 12/29/17 12:07 16:06 19:56 WBC RBC Hgb Hct MCV MCH MCHC RDW Plt Count MPV Neut % (Auto) Lymph % (Auto) [place] % (Auto) Eos % (Auto) Baso % (Auto) Neut # (Auto) Lymph # (Auto) [place] # (Auto) Eos # (Auto) Baso # (Auto) WBC Differential Differential Comment Puncture Site Right radial Patient Temperature 98.6 O2 Saturation 95 ABG pH 7.39 ABG pCO2 49 H ABG pO2 87 ABG HCO3 28 H ABG O2 Content 13.0 ABG Base Excess 3.7 H ABG Methemoglobin 1.3 Magdiel Test Present Hemoglobin 9.7 L Carboxyhemoglobin 1.1 O2 Delivery Device Ventilator Vent Setting Cpap 10/5+ Inspired O2 45 Critical Value No Sodium Potassium Chloride Carbon Dioxide Anion Gap BUN Creatinine Estimated GFR POC Glucose 219 H 210 H Random Glucose Lactic Acid Calcium Prot Corrected Calcium Phosphorus Total Bilirubin AST ALT Alkaline Phosphatase Total Protein Albumin MTS Gel Crossmatch 12/29/17 12/30/17 12/30/17 23:29 03:29 08:20 WBC RBC Hgb Hct MCV MCH MCHC RDW Plt Count MPV Neut % (Auto) Lymph % (Auto) [place] % (Auto) Eos % (Auto) Baso % (Auto) Neut # (Auto) Lymph # (Auto) [place] # (Auto) Eos # (Auto) Baso # (Auto) WBC Differential Differential Comment Puncture Site Patient Temperature O2 Saturation ABG pH ABG pCO2 ABG pO2 ABG HCO3 ABG O2 Content ABG Base Excess ABG Methemoglobin Magdiel Test Hemoglobin Carboxyhemoglobin O2 Delivery Device Vent Setting Inspired O2 Critical Value Sodium Potassium Chloride Carbon Dioxide Anion Gap BUN Creatinine Estimated GFR POC Glucose 213 H 190 H 197 H Random Glucose Lactic Acid Calcium Prot Corrected Calcium Phosphorus Total Bilirubin AST ALT Alkaline Phosphatase Total Protein Albumin MTS Gel Crossmatch 12/30/17 12/30/17 12/30/17 10:17 10:17 11:55 WBC 8.3 RBC 3.15 L Hgb 9.5 L Hct 28.9 L MCV 91.6 MCH 30.2 MCHC 33.0 RDW 14.8 Plt Count 174 MPV 10.5 Neut % (Auto) 75.2 H Lymph % (Auto) 11.4 [place] % (Auto) 10.1 H Eos % (Auto) 2.6 Baso % (Auto) 0.7 Neut # (Auto) 6.2 Lymph # (Auto) 0.9 L [place] # (Auto) 0.8 Eos # (Auto) 0.2 Baso # (Auto) 0.1 WBC Differential . Differential Comment Auto diff final Puncture Site Patient Temperature O2 Saturation ABG pH ABG pCO2 ABG pO2 ABG HCO3 ABG O2 Content ABG Base Excess ABG Methemoglobin Magdiel Test Hemoglobin Carboxyhemoglobin O2 Delivery Device Vent Setting Inspired O2 Critical Value Sodium 141 Potassium 3.4 L Chloride 104 D Carbon Dioxide 28.1 Anion Gap 9 BUN 32 H Creatinine 1.00 Estimated GFR 58 L POC Glucose 219 H Random Glucose 189 H Lactic Acid Calcium 7.3 L* Prot Corrected Calcium 7.9 L Phosphorus Total Bilirubin 0.3 AST 31 ALT 40 Alkaline Phosphatase 99 Total Protein 5.9 L Albumin 2.3 L MTS Gel Crossmatch 12/30/17 12/30/17 12/30/17 16:14 20:43 23:26 WBC RBC Hgb Hct MCV MCH MCHC RDW Plt Count MPV Neut % (Auto) Lymph % (Auto) [place] % (Auto) Eos % (Auto) Baso % (Auto) Neut # (Auto) Lymph # (Auto) [place] # (Auto) Eos # (Auto) Baso # (Auto) WBC Differential Differential Comment Puncture Site Patient Temperature O2 Saturation ABG pH ABG pCO2 ABG pO2 ABG HCO3 ABG O2 Content ABG Base Excess ABG Methemoglobin Magdiel Test Hemoglobin Carboxyhemoglobin O2 Delivery Device Vent Setting Inspired O2 Critical Value Sodium Potassium 3.9 Chloride Carbon Dioxide Anion Gap BUN Creatinine Estimated GFR POC Glucose 198 H 164 H Random Glucose Lactic Acid Calcium Prot Corrected Calcium Phosphorus Total Bilirubin AST ALT Alkaline Phosphatase Total Protein Albumin MTS Gel Crossmatch 12/30/17 12/31/17 12/31/17 23:51 03:54 03:54 WBC 8.4 RBC 3.21 L Hgb 9.7 L Hct 29.6 L MCV 92.3 MCH 30.2 MCHC 32.8 RDW 14.8 Plt Count 204 MPV 10.4 Neut % (Auto) 71.4 H Lymph % (Auto) 14.9 [place] % (Auto) 9.7 H Eos % (Auto) 3.0 Baso % (Auto) 1.0 Neut # (Auto) 6.0 Lymph # (Auto) 1.3 [place] # (Auto) 0.8 Eos # (Auto) 0.3 Baso # (Auto) 0.1 WBC Differential . Differential Comment Auto diff final Puncture Site Patient Temperature O2 Saturation ABG pH ABG pCO2 ABG pO2 ABG HCO3 ABG O2 Content ABG Base Excess ABG Methemoglobin Magdiel Test Hemoglobin Carboxyhemoglobin O2 Delivery Device Vent Setting Inspired O2 Critical Value Sodium 140 Potassium 3.8 Chloride 102 Carbon Dioxide 29.4 Anion Gap 9 BUN 24 H Creatinine 0.75 Estimated GFR 80 L POC Glucose 167 H Random Glucose 190 H Lactic Acid Calcium 7.9 L Prot Corrected Calcium Phosphorus Total Bilirubin 0.3 AST 22 ALT 30 Alkaline Phosphatase 93 Total Protein 6.2 L Albumin 2.4 L MTS Gel Crossmatch 12/31/17 12/31/17 12/31/17 04:23 08:48 12:09 WBC RBC Hgb Hct MCV MCH MCHC RDW Plt Count MPV Neut % (Auto) Lymph % (Auto) [place] % (Auto) Eos % (Auto) Baso % (Auto) Neut # (Auto) Lymph # (Auto) [place] # (Auto) Eos # (Auto) Baso # (Auto) WBC Differential Differential Comment Puncture Site Patient Temperature O2 Saturation ABG pH ABG pCO2 ABG pO2 ABG HCO3 ABG O2 Content ABG Base Excess ABG Methemoglobin Magdiel Test Hemoglobin Carboxyhemoglobin O2 Delivery Device Vent Setting Inspired O2 Critical Value Sodium Potassium Chloride Carbon Dioxide Anion Gap BUN Creatinine Estimated GFR POC Glucose 186 H 174 H 165 H Random Glucose Lactic Acid Calcium Prot Corrected Calcium Phosphorus Total Bilirubin AST ALT Alkaline Phosphatase Total Protein Albumin MTS Gel Crossmatch Result Diagrams: 12/31/17 03:54 12/31/17 03:54 Microbiology: Microbiology 12/28/17 06:10 Urine Culture - Final Clean Catch Urine 50-100,000 cfu/mL mixed shreyas (probable contaminants) Imaging: Toe X-Ray 12/20/17 00:00 CONCLUSION: Focal soft tissue swelling involving the fourth toe. The underlying bony structures are grossly intact. Chest X-Ray 12/20/17 08:18 CONCLUSION: No focal or acute pulmonary infiltrates. Abdomen X-Ray 12/24/17 00:00 CONCLUSION: Normal bowel gas pattern. Chest X-Ray 12/27/17 00:00 CONCLUSION: Hypoaerated lungs with mild right basilar airspace disease otherwise stable chest. Abdomen/Pelvis CT 12/27/17 14:34 CONCLUSION: 1. Colonic distention with a large amount of stool as described, features most typical of a nonmechanical obstruction. 2. Gastric distention without a perceptible mass. A stricture in the region of the gastric antrum with the in the differential. Duodenum is decompressed. 3. There are scattered low-density lesions of the spleen, nonspecific but I believe they were present on the prior studies, just better seen today and probably benign. 4. There is infiltrate in the visualized right lung base. Abdomen X-Ray 12/27/17 14:39 CONCLUSION: Distended gastrointestinal tract, I believe mostly colonic and of concern for obstruction versus Hallie's. Patient is scheduled for abdomen CT. Venous Doppler Study 12/28/17 00:00 CONCLUSION: 1. Negative for deep venous thrombosis. Abdomen X-Ray 12/28/17 06:00 CONCLUSION: Persistent abnormally dilated segment of colon but overall bowel gas pattern appears less dilated than on the prior study from yesterday. Technique makes it very difficult to assess the overall bowel gas pattern. Suggest continued attention to this at follow-up imaging. Chest X-Ray 12/28/17 10:54 CONCLUSION: Low lung volumes with bibasilar consolidation likely relating to atelectasis. Temporal Bone CT 12/30/17 00:00 CONCLUSION: 1. Mild partial opacification of the middle ear bilaterally and mild partial opacification of the anterior mastoid air cells bilaterally. No evidence of focal bone erosion. Ossicles are intact. 2. Moderate severity sinusitis most prominent in the posterior right ethmoid sinus with air-fluid level seen in this region suggesting acute sinusitis. Abdomen X-Ray 12/31/17 00:00 CONCLUSION: No dilated bowel loops. Procedures: EGD 12/28/17 Colonoscopy 12/28/17 Intubation/mechanical ventilation 12/28/17 . Assessment and Plan - Disease Oriented Problem List (1) GI bleed (2) Ischemic colitis (3) Acute kidney injury (4) Paced cardiac rhythm (5) Morbid obesity (6) Diabetes mellitus (7) Bullous eruption, localized (8) Sleep disorder breathing (9) Atrial fibrillation (10) Psoriasis (11) Non-ischemic cardiomyopathy (12) Hypothyroid (13) Diabetes Pertinent Non-Medical Issues: Psychosocial:Patient is originally from [place], [place]. Has lived in [place] about 20 yrs. College educated. 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 and x 1. Has been with her current unmarried partner -- Inder Ca -- for about 22 years. Has two daughters from first marriage. Izabela Pretty is 31 and per family is challenged -- on , multiple psych hospitalizations for bipolar. Valeria Ca will turn 18 at the end of the month. Patient lives with Inder, two daughters, Izabela's boyfriend, and friend of Valeria Hernandez who they have been helping . Family care of patient is supplemented by daily CNAs. Spiritual: Denominational and spirituality have not been an important part of her life. She comes from a [employer] tradition. She prays. Legal: No advance directives. Ethical issues impacting care: No known ethical / legal issues known at this time. . Important Contacts: Aline Mace (mother and proxy per [place] statutes) [phone] Inder Ca (unmarried partner of 22 years ) [phone] . Prognosis: Patient with new GI bleeding possibly due to ischemic bowel has multiple significant underlying co-morbidities including non-ischemic cardiomyopathy; asthma with 02 dependence of 5 L/min for over 10 years; morbid obesity; bedbound status for 1 year; diabetes; etc. She has been evaluated by vascular and general surgery and is not felt to be a surgical candidate. If this is, indeed, ischemia of the GI tract and it is not reversible, is likely to come within days from sepsis regardless or interventions. If this is not ischemia, there is a chance of recovery but ongoing decline is likely given her level of obesity and current bedbound status. . Code Status: Full Code Plan: == Code Status: FULL CODE == Decision Making: Patient is now awake, alert, and capacitated to make her own health care decisions. She does not want her adult daughter to serve as health care surrogate. She is still deciding between her mother and her long- term partner -- Inder. She understands that if she does not designate someone, her mother would become the proxy decision maker. == Goals of medical treatment: Patient currently has aggressive goals including FULL CODE status. == Symptoms * Pain: Longstanding neuropathic pain in upper and lower extremities which could easily reach #10 in severity. Current sources of pain might include: NG tube ; lau catheter; vascular access lines, prolonged bedbound status. * Encephalopathy: Probably multi-factorial. Appears resolved. * Dyspnea: Has underlying cardiomyopathy and asthma. May have an infection on top of this. Dyspnea now adequately addressed with nasal cannula 02 and PRN BiPAP. * Constipation: Probably multi-factorial. There may be a component of hypothyroidism and/or diabetic gastroparesis on top of the impact of low activity. She has gone as long as 20 days without moving her bowels. == PLAN * Mother expected to arrive from out of state on 12/31/17. Patient will choose her health care surrogate and will speak to her surrogate regarding her goals and preferences. * Patient does not want the palliative care team to speak to her mother until the patient can speak to her mother. * We will want to minimize sedating medications to give her the best chance of remaining off from vent and being able to discuss goals. Hopefully, pain can be controlled with acetaminophen or low dose opioids. As renal function is improving, almost an opioid would be fine. * She has a history of hypothyroidism -- recommend checking thyroid function as hypothyroidism might have contributed to the prolonged constipation. * Case discussed with bedside nurse. * == Palliative care will continue to follow to assist with symptom management and to further clarify goals of medical treatment as the clinical course evolves. Time Spent Total Floor Time (mins): 40 (Total floor time included chart review, patient exam, collaboration with bedside nurse, and above reference discussion with patient regarding current clinical condition, prognosis and goals of medical treatment. ) Face to Face Time (mins): 25 >50% Time in Counseling or Coordination of Care: Yes Attestation Attestation: To help prompt me to consider important information that might be impacting today's encounter and assessment, information from prior notes written by myself or my colleagues may have been "brought forward" into today's note. My signature on this note, however, is an attestation that I personally performed the exam, history, and/or decision-making noted today, and, unless otherwise indicated, the interactions with patient, family, and staff as well as the review of records all occurred today. I also attest that the listed assessment and stated plan reflect my best clinical judgment today based on the combination of historical information, prior notes, and today's exam/ interactions. When time spent is documented, it refers only to time spent today by the signer, or if indicated, combined time spent today by collaborating physician/nurse practitioner. .
--- NOTE | 2017-12-31 16:25 | P.PNGS ---
<NeriMaisha - Last Filed: 12/31/17 16:21> Subjective Interval history: C/o headache; mild abdominal pain; thirsty Physical Exam Vital signs: Vital Signs 12/30/17 17:01 12/30/17 17:12 12/30/17 17:57 Temperature Pulse Rate 84 84 90 Respiratory Rate 19 11 L 20 Blood Pressure 132/60 125/60 126/63 Pulse Oximetry 96 96 94 L 12/30/17 18:00 12/30/17 19:01 12/30/17 19:54 Temperature Pulse Rate 85 82 85 Respiratory Rate 16 16 16 Blood Pressure 121/61 128/61 Pulse Oximetry 94 L 98 97 12/30/17 20:00 12/30/17 20:01 12/30/17 21:01 Temperature 98.1 F Pulse Rate 82 83 84 Respiratory Rate 21 19 17 Blood Pressure 131/62 131/62 127/57 L Pulse Oximetry 97 97 95 12/30/17 22:00 12/30/17 22:01 12/30/17 22:40 Temperature Pulse Rate 81 81 Respiratory Rate 20 20 Blood Pressure 124/58 L Pulse Oximetry 96 95 98 12/30/17 23:01 12/30/17 23:38 12/31/17 00:00 Temperature 98.7 F Pulse Rate 81 80 83 Respiratory Rate 16 17 18 Blood Pressure 122/58 L 125/58 L Pulse Oximetry 96 96 12/31/17 00:01 12/31/17 01:01 12/31/17 02:00 Temperature Pulse Rate 82 81 80 Respiratory Rate 17 15 16 Blood Pressure 125/58 L 134/61 Pulse Oximetry 97 96 96 12/31/17 02:01 12/31/17 03:01 12/31/17 03:27 Temperature Pulse Rate 80 80 81 Respiratory Rate 16 16 13 Blood Pressure 138/62 138/65 Pulse Oximetry 96 97 98 12/31/17 04:00 12/31/17 04:01 12/31/17 05:01 Temperature 99.1 F Pulse Rate 81 81 81 Respiratory Rate 17 16 17 Blood Pressure 144/65 H 144/65 H 133/63 Pulse Oximetry 95 95 97 12/31/17 06:00 12/31/17 06:01 12/31/17 07:43 Temperature Pulse Rate 80 82 Respiratory Rate 18 16 Blood Pressure 147/70 H Pulse Oximetry 96 96 96 12/31/17 08:00 12/31/17 12:00 12/31/17 14:09 Temperature 99.1 F Pulse Rate 78 82 82 Respiratory Rate 16 Blood Pressure Pulse Oximetry Intake & Output 12/30/17 12/31/17 12/31/17 18:59 06:59 18:59 Intake Total 1200 / 1200 1500 / 1500 1000 / 1000 Output Total 1300 / 1300 1150 / 1150 Balance -100 / -100 350 / 350 1000 / 1000 Weight 202 kg Intake: IV 1200 / 1200 1500 / 1500 1000 / 1000 NS Inj 1,000 ML @ 100 mls/hr IV 1000 / 1000 0 / 0 .CONT .Q10H ERNESTINA Rx#:[id number] 1/2 Normal Saline Inj 1,000 ML 1000 / 1000 1000 / 1000 @ 84 mls/hr IV.CONT .[id number] [facility]NEST[facility] Rx#:[id number] KCl 20 mEq Premix Inj 20 meq In 100 / 100 100 / 100 100 ml @ 50 mls/hr IV.SIG Q2H PRN Rx#:[id number] Rocephin Inj 2,000 MG In NS Inj 200 / 200 100 ML @ 200 mls/hr IV.SIG Q24H [facility] Rx#:[id number] Flagyl 500 MG Inj 100 ML @ 100 100 / 100 200 / 200 mls/hr IV.SIG Q8H ERNEST[facility] Rx#: [id number] Output: Urine Amount (Catheter) 650 / 650 550 / 550 Indwelling Urethral Catheter 650 / 650 550 / 550 Gastric Drainage 650 / 650 600 / 600 Nasogastric Tube 650 / 650 600 / 600 Other: Date of Last Bowel Movement 12/30/17 12/30/17 Narrative: Alert and awake Cardio: RRR Resp: CTAB Abd: soft mild tenderness with palpation Ext: edema - Urinary Catheter Management Indwelling Urethral Catheter Cath placed during this visit: yes Reason for continuing: Acute urinary retention Insertion date: 12/28/17 Insertion time: 05:00 Assessment and Plan - Assessment (1) Gastritis Code(s): K29.70 - Gastritis, unspecified, without bleeding Status: Acute Plan: 57 year old female s/p EGD with findings of partial ischemia of the greater curve of the stomach and colitis -Now extubated -Reports she has had intermediate pain for a few years but due to her lack of mobility she has been unable to see a doctor -NGT to [facility] -Diet per GI -GI planning of repeat EGD in the upcoming days; will follow -Otherwise no surgical plans <Zachary Berger - Last Filed: 12/31/17 16:56> Subjective Interval history: DAILY PROGRESS NOTE FOR SURGICAL ATTENDING, DR. ZACHARY BERGER Physical Exam Vital signs: Vital Signs 12/30/17 17:01 12/30/17 17:12 12/30/17 17:57 Temperature Pulse Rate 84 84 90 Respiratory Rate 19 11 L 20 Blood Pressure 132/60 125/60 126/63 Pulse Oximetry 96 96 94 L 12/30/17 18:00 12/30/17 19:01 12/30/17 19:54 Temperature Pulse Rate 85 82 85 Respiratory Rate 16 16 16 Blood Pressure 121/61 128/61 Pulse Oximetry 94 L 98 97 12/30/17 20:00 12/30/17 20:01 12/30/17 21:01 Temperature 98.1 F Pulse Rate 82 83 84 Respiratory Rate 21 19 17 Blood Pressure 131/62 131/62 127/57 L Pulse Oximetry 97 97 95 12/30/17 22:00 12/30/17 22:01 12/30/17 22:40 Temperature Pulse Rate 81 81 Respiratory Rate 20 20 Blood Pressure 124/58 L Pulse Oximetry 96 95 98 12/30/17 23:01 12/30/17 23:38 12/31/17 00:00 Temperature 98.7 F Pulse Rate 81 80 83 Respiratory Rate 16 17 18 Blood Pressure 122/58 L 125/58 L Pulse Oximetry 96 96 12/31/17 00:01 12/31/17 01:01 12/31/17 02:00 Temperature Pulse Rate 82 81 80 Respiratory Rate 17 15 16 Blood Pressure 125/58 L 134/61 Pulse Oximetry 97 96 96 12/31/17 02:01 12/31/17 03:01 12/31/17 03:27 Temperature Pulse Rate 80 80 81 Respiratory Rate 16 16 13 Blood Pressure 138/62 138/65 Pulse Oximetry 96 97 98 12/31/17 04:00 12/31/17 04:01 12/31/17 05:01 Temperature 99.1 F Pulse Rate 81 81 81 Respiratory Rate 17 16 17 Blood Pressure 144/65 H 144/65 H 133/63 Pulse Oximetry 95 95 97 12/31/17 06:00 12/31/17 06:01 12/31/17 07:43 Temperature Pulse Rate 80 82 Respiratory Rate 18 16 Blood Pressure 147/70 H Pulse Oximetry 96 96 96 12/31/17 08:00 12/31/17 12:00 12/31/17 14:09 Temperature 99.1 F Pulse Rate 78 82 82 Respiratory Rate 16 Blood Pressure Pulse Oximetry Intake & Output 12/30/17 12/31/17 12/31/17 18:59 06:59 18:59 Intake Total 1200 / 1200 1500 / 1500 1000 / 1000 Output Total 1300 / 1300 1150 / 1150 Balance -100 / -100 350 / 350 1000 / 1000 Weight 202 kg Intake: IV 1200 / 1200 1500 / 1500 1000 / 1000 NS Inj 1,000 ML @ 100 mls/hr IV 1000 / 1000 0 / 0 .CONT .Q10H [facility] Rx#:[id number] 1/2 Normal Saline Inj 1,000 ML 1000 / 1000 1000 / 1000 @ 84 mls/hr IV.CONT .[id number] [facility] Rx#:[id number] KCl 20 mEq Premix Inj 20 meq In 100 / 100 100 / 100 100 ml @ 50 mls/hr IV.SIG Q2H PRN Rx#:[id number] Rocephin Inj 2,000 MG In NS Inj 200 / 200 100 ML @ 200 mls/hr IV.SIG Q24H [facility] Rx#:[id number] Flagyl 500 MG Inj 100 ML @ 100 100 / 100 200 / 200 mls/hr IV.SIG Q8H [facility]ST[facility] Rx#: [id number] Output: Urine Amount (Catheter) 650 / 650 550 / 550 Indwelling Urethral Catheter 650 / 650 550 / 550 Gastric Drainage 650 / 650 600 / 600 Nasogastric Tube 650 / 650 600 / 600 Other: Date of Last Bowel Movement 12/30/17 12/30/17 - Urinary Catheter Management Indwelling Urethral Catheter Cath placed during this visit: no Assessment and Plan - Assessment (1) Gastritis Code(s): K29.70 - Gastritis, unspecified, without bleeding Status: Acute - Attending Attestation NOTE FOR SURGICAL ATTENDING, DR. ZACHARY BERGER I agree with above assessment and plan. The exam, history, and the medical decision-making described in the above note were completed with the assistance of the mid-level provider. I reviewed and agree with the findings presented. I attest that I had a [id number] encounter with the patient on the same day, and personally performed and documented my assessment and findings in the medical record. The following services were provided during this hospital visit: Chart data review, vital sign assessments/reviewing monitor data Review of consultations notes if present. Medication orders/review and/or management Ordering and/or reviewing lab tests Ordering and/or interpreting/reviewing x-rays and/or diagnostic studies Care of the patient and discussion of the patient with the care team Documentation time To help prompt me to consider important information that might be impacting today's encounter and assessment, Information from prior notes written by myself or my colleagues may have been "brought forward/copy and pasted" into today's note.
--- NOTE | 2017-12-31 17:00 | ECHRPT ---
Indication: HEART FAILURE CONCLUSIONS The left ventricular systolic function is mildly reduced with an estimated ejection fraction in the range of 45- 50%. Moderate concentric left ventricular hypertrophy. Trace mitral valve regurgitation. There is mild tricuspid valve regurgitation. There is a small pericardial effusion present. No hemodynamically significant echocardiographic features were observed (no pre-tamponade physiology). BP: / HR: Rhythm: Sinus MEASUREMENTS (Male / Female) Normal Values Technical Quality:Fair 2D ECHO LV Diastolic Diameter PLAX 4.9 cm 4.2 - 5.9 / 3.9 - 5.3 cm LV Systolic Diameter PLAX 3.9 cm IVS Diastolic Thickness 1.6 cm 0.6 - 1.0 / 0.6 - 0.9 cm LVPW Diastolic Thickness 1.6 cm 0.6 - 1.0 / 0.6 - 0.9 cm LV Relative Wall Thickness 0.7 RV Internal Dim ED PLAX 2.9 cm LVOT Diameter 2.2 cm Aortic Root Diameter 3.2 cm LA Systolic Diameter LX 3.6 cm 3.0 - 4.0 / 2.7 - 3.8 cm M-MODE AV Cusp Separation MM 2.3 cm DOPPLER AV Peak Velocity 136.0 cm/s AV Peak Gradient 7.4 mmHg AV Mean Gradient 5.0 mmHg AV Velocity Time Integral 26.2 cm LVOT Peak Velocity 52.6 cm/s LVOT Peak Gradient 1.1 mmHg LVOT Velocity Time Integral 10.6 cm AV Area Cont Eq vti 1.5 cm AV Area Cont Eq pk 1.5 cm Mitral E Point Velocity 137.0 cm/s LV E' Lateral Velocity 4.2 cm/s Mitral E to LV E' Lateral Ratio 32.7 LV E' Septal Velocity 4.2 cm/s Mitral E to LV E' Septal Ratio 32.7 TR Peak Velocity 281.0 cm/s TR Peak Gradient 31.6 mmHg Right Atrial Pressure 10.0 mmHg Pulmonary Artery Systolic Pressu 41.6 mmHg Right Ventricular Systolic Press 41.6 mmHg PV Peak Velocity 66.2 cm/s PV Peak Gradient 1.8 mmHg FINDINGS LEFT VENTRICLE There is abnormal septal motion consistent with a right ventricle pacemaker. Normal left ventricular size. Moderate concentric left ventricular hypertrophy. The left ventricular systolic function is mildly reduced with an estimated ejection fraction in the range of 45- 50%. RIGHT VENTRICLE A pacemaker wire is noted. The right ventricular systoilc function is normal. LEFT ATRIUM The left atrial size is upper limits of normal. RIGHT ATRIUM There is a pacemaker wire present in the right atrial cavity. The right atrial size is upper limits of normal. ATRIAL SEPTUM The interatrial septum not well visualized. AORTA The aortic root and proximal ascending aorta are not well visualized. MITRAL VALVE Grossly normal Trace mitral valve regurgitation. AORTIC VALVE The aortic valve is not well visualized. No aortic valve regurgitation. No aortic valve stenosis. TRICUSPID VALVE Structurally normal tricuspid valve. There is mild tricuspid valve regurgitation. The estimated pulmonary arterial pressure is 41.6 mmHg. PULMONARY VALVE The pulmonary valve is not well visualized. VESSELS The inferior vena cava was not well visualized. PERICARDIUM There is a small pericardial effusion present. No hemodynamically significant echocardiographic features were observed (no pre-tamponade physiology). Osmani Albright DO (Electronically Signed) Final Date:31 December 2017 16:58
[2018-01-01] MEDS: Insulin NovoLIN Regular Correctional Sugar Inj SQ SCH ×5 (02:41→17:11)
[2018-01-01] MEDS: Acetaminophen-HYDROcodone 325/7.5 Liq 15 ML UDC NG/OG PRN ×3 (02:47→20:56)
--- NOTE | 2018-01-01 06:45 | XR ---
EXAM DATE: 01/01/2018 6:41 AM EDT AGE/SEX: 57 years / Female INDICATIONS: Short of breath. CLINICAL DATA: This is the patient's subsequent encounter. Patient reports that signs and symptoms h ave been present for 1 week and indicates a pain score of 0/10. MEDICAL/SURGICAL HISTORY: . Transient ischemic attack. Congestive heart failure. Renal failure, acute. Psoriasis, Hypertension, Diabetic. Pacemaker. COMPARISON: [facility], ABDOMEN 1V KUB, 12/31/2017. . FINDINGS: Gaseous distention of bowel loops without obstruction. Rectal tube noted. No abnormal masses, calci fications, or organomegaly is seen. The osseous structures are unremarkable. CONCLUSION: Gaseous distention of bowel loops without obstruction. Electronically signed by: Gopi Sagastume MD 01/01/2018 6:44 AM EDT
[2018-01-01 07:51] LABS: Baso # (Auto) 0.1 th/mm3 (0.0-0.2); Eos # (Auto) 0.2 th/mm3 (0.0-0.4); Eos % (Auto) 2.6 % (0.0-4.0); Hematocrit 30.6 % (35.0-46.0); Hemoglobin 10.1 gm/dL (11.6-15.3); Lymph # (Auto) 1.5 th/mm3 (1.0-4.8); Lymph % (Auto) 18.8 % (9.0-44.0); Mean Corpuscular HGB Conc 32.9 % (32.0-36.0); Mean Corpuscular Volume 91.1 fL (80.0-100.0); Mean Platelet Volume 9.6 fL (7.0-11.0); Mono # (Auto) 0.7 th/mm3 (0.0-0.9); Mono % (Auto) 9.1 % (0.0-8.0); Neut # (Auto) 5.3 th/mm3 (1.8-7.7); Neut % (Auto) 68.5 % (16.0-70.0); Platelet Count 238 th/mm3 (150-450); Red Blood Count 3.36 mil/mm3 (4.00-5.30); Red Cell Distribution Width 14.7 % (11.6-17.2); White Blood Count 7.7 th/mm3 (4.0-11.0)
[2018-01-01 08:07] LABS: Albumin 2.4 g/dL (3.4-5.0); Anion Gap 9 meq/L (5-15); Blood Urea Nitrogen 15 mg/dL (7-18); Calcium 8.3 mg/dL (8.5-10.1); Carbon Dioxide 28.6 meq/L (21.0-32.0); Chloride 103 meq/L (98-107); Glomerular Filtration Rate Greater Than 89 mL/min (>89); Glucose,Random 174 mg/dL (74-106); Magnesium 2.7 mg/dL (1.5-2.5); Potassium 3.9 meq/L (3.5-5.1); Sodium 141 meq/L (136-145)
[2018-01-01] MEDS: Pantoprazole Inj 40 MG Vial IV.PUSH SCH ×2 (08:24→20:55)
[2018-01-01] MEDS: Polyethylene Glycol 3350 17 GM Packet PO SCH (08:24)
[2018-01-01] MEDS: Hydrocortisone 2.5% Cream 30 GM Tube TOPICAL SCH ×2 (08:24→21:05)
[2018-01-01] MEDS: Budesonide-Formoterol 160/4.5 MCG 6 GM Inhaler INH SCH ×2 (08:24→21:05)
[2018-01-01 08:50] LABS: Phosphorus 2.6 mg/dL (2.5-4.9)
--- NOTE | 2018-01-01 10:57 | P.PNPAL ---
Reason for Visit Reason for visit: a. To assist with evaluation and management of symptoms including: pain; dyspnea b. To assist medical decision maker(s) with: better understanding of current medical conditions; weighing benefits/burdens of medical treatment options; making medical treatment decisions. Subjective Subjective/Interval History: Visit necessary on follow up for dyspnea and pain, and advance directive. Pt is a 57 year old who came in with chest pain and dyspnea(hx of asthma). Admitted to rule out ACS, which was the case pacemaker function evaluated. Condition complicated by focal soft tissue swelling of 4th toe (podiatry following no surgery) colonic distention, infiltrates, ischemic colitis in right colon, esophagitis. While undergoin pandoscopy developed hypotension. Michanically intubated for respiratory failure. Extubated 12/29. Vascular surgery did not feel pt was a candidate for any vascular procedure. General surgery consulted, felt bleeding was more a result of gastritis and esophagitis than ischemia, did not recommend any surgery. Palliative care consulted by goals of care. Her hospital course and problems at length including how close to she appeared just last Sunday were reviewed with patient. She confirmed her one year of bedbound status. We then discussed goals of medical treatment. Ms. Mace understands how ill she is and that she could decompensate again at any time. Pt became capacitated. Her goals have been full code and aggressive. She had endorse she "still have a 17 y/o daughter who needs her mother. I have to fight to stay alive for her." In terms of dyspnea. still has some on exertion. No real changes per patient. She denies pain for me this visit. Goals of care/advance directive- patient stated her mom arrived just last night and she really have not gotten the chance to speak with her about everything reviewed with palliative care yesterday. She endorse she wants a few days to think about everything. Followed up on advance directives and at this point she does not want to put anybody down on writing. Again she understands legally it will be her mother that will serve as proxy, if she doesn 't complete any health care surrogate designation. Patient was understandably frustrated given her debility and hospitalization. She calmed down and was amenable for me to visit tomorrow. . Family/Friend Interactions: She has not had the chance to speak with family, ask me to wait before talking to them. Advance Directives Living Will: Never completed Health Care Surrogate: Never completed Durable Power of County Adviser: Never completed Health Care Surrogate Name and Number: No designation of health care surrogate. Documented care wishes:: No written documentation of health care goals/preferences . Objective Vital Signs: Vital Signs 12/31/17 11:01 12/31/17 12:00 12/31/17 12:01 Temperature Pulse Rate 83 82 84 Respiratory Rate 19 17 24 Blood Pressure 150/66 H 152/68 H Pulse Oximetry 96 96 96 12/31/17 13:01 12/31/17 14:00 12/31/17 14:01 Temperature Pulse Rate 81 88 86 Respiratory Rate 16 19 16 Blood Pressure 146/65 H 155/74 H Pulse Oximetry 96 96 95 12/31/17 14:09 12/31/17 15:01 12/31/17 16:00 Temperature Pulse Rate 82 87 90 Respiratory Rate 16 18 21 Blood Pressure 148/73 H Pulse Oximetry 96 93 L 12/31/17 16:01 12/31/17 17:01 12/31/17 19:34 Temperature Pulse Rate 89 91 H 89 Respiratory Rate 17 17 19 Blood Pressure 140/66 139/75 Pulse Oximetry 94 L 94 L 12/31/17 19:35 12/31/17 20:00 12/31/17 22:00 Temperature 98.8 F Pulse Rate 93 H 86 Respiratory Rate 22 Blood Pressure 158/65 H Pulse Oximetry 95 95 95 12/31/17 22:04 01/01/18 00:00 01/01/18 00:16 Temperature 100.3 F H Pulse Rate 85 82 Respiratory Rate 13 17 Blood Pressure 147/82 H Pulse Oximetry 96 97 01/01/18 00:17 01/01/18 01:00 01/01/18 02:00 Temperature Pulse Rate 82 Respiratory Rate Blood Pressure Pulse Oximetry 97 96 01/01/18 03:56 01/01/18 03:58 01/01/18 04:00 Temperature 98.4 F Pulse Rate 76 76 Respiratory Rate 15 16 Blood Pressure 178/86 H Pulse Oximetry 99 98 01/01/18 06:00 01/01/18 07:11 01/01/18 07:12 Temperature Pulse Rate 78 82 Respiratory Rate 16 Blood Pressure Pulse Oximetry 97 01/01/18 07:46 Temperature Pulse Rate Respiratory Rate Blood Pressure Pulse Oximetry 99 Intake & Output 12/31/17 01/01/18 01/01/18 18:59 06:59 18:59 Intake Total 1100 / 1100 1571 / 1571 Output Total 1150 / 1150 800 / 800 Balance -50 / -50 771 / 771 Weight 202.2 kg Intake: IV 1100 / 1100 1571 / 1571 1/2 Normal Saline Inj 1,000 ML 1000 / 1000 1271 / 1271 @ 84 mls/hr IV.CONT .[id number] ERNESTINA Rx#:[id number] Rocephin Inj 2,000 MG In NS Inj 100 / 100 100 ML @ 200 mls/hr IV.SIG Q24H ERNESTINA Rx#:[id number] Flagyl 500 MG Inj 100 ML @ 100 100 / 100 200 / 200 mls/hr IV.SIG Q8H ERNESTINA Rx#: [id number] Output: Urine Amount (Catheter) 450 / 450 300 / 300 Indwelling Urethral Catheter 450 / 450 300 / 300 Gastric Drainage 700 / 700 500 / 500 Nasogastric Tube 700 / 700 500 / 500 Other: Date of Last Bowel Movement 12/30/17 12/30/17 Physical Exam: CONSTITUTIONAL/GENERAL: This is a morbidly obese patient, awake, alert, conversant in an MICU bed. Able to smile. TUBES/LINES/DRAINS: NG tube; rectal tube; lau catheter; NC 02. SKIN: No jaundice. Psoriatic plaques. Unroofed bullae on toes. Skin temperature appropriate. Not diaphoretic. EYES: Pupils equal and round. Extraocular motions intact. No scleral icterus. No injection or drainage. Fundi not examined. ENT: Unable to evaluate hearing. Nose without bleeding or purulent drainage. Throat without visible erythema, exudates, masses, or lesions . NECK: Trachea midline. Obese and difficult to examine. No palpable thyroid enlargement or nodularity. CARDIOVASCULAR: Paced rhythm without murmurs, gallops, or rubs. No JVD. Peripheral pulses symmetric very difficult to palpate due to level of obesity. RESPIRATORY/CHEST: Symmetric, unlabored respirations. Clear to auscultation. Breath sounds equal bilaterally but quite distant. No wheezes, rales, or rhonchi. GASTROINTESTINAL: Abdomen morbidly obese with large panniculus. Soft, no obvious tenderness. No hepato-splenomegaly, or palpable masses but VERY difficult to assess due to level of obesity. No guarding. Bowel sounds present. GENITOURINARY: Without palpable bladder distension. Lau catheter in place. MUSCULOSKELETAL: Extremities without clubbing, cyanosis. Edema noted in feet and hands. No mottling. LYMPHATICS: Nor examined. NEUROLOGICAL: Awake and alert. Motor and sensory grossly within normal limits. Follows commands. Cognitively sharp. Moves all extremities. PSYCHIATRIC: No obvious anxiety/depression. no apparent hallucinations or other psychotic thought process. Diagnostic Tests Laboratory: Laboratory Results - last 72 hr 12/27/17 12/29/17 12/29/17 17:50 11:56 12:07 WBC RBC Hgb Hct MCV MCH MCHC RDW Plt Count MPV Prelim Diff (Auto) Neut % (Auto) Lymph % (Auto) [place] % (Auto) Eos % (Auto) Baso % (Auto) Neut # (Auto) Lymph # (Auto) [place] # (Auto) Eos # (Auto) Baso # (Auto) WBC Differential Diff Scan Differential Comment Puncture Site Right radial Patient Temperature 98.6 O2 Saturation 95 ABG pH 7.39 ABG pCO2 49 H ABG pO2 87 ABG HCO3 28 H ABG O2 Content 13.0 ABG Base Excess 3.7 H ABG Methemoglobin 1.3 Magdiel Test Present Hemoglobin 9.7 L Carboxyhemoglobin 1.1 O2 Delivery Device Ventilator Vent Setting Cpap 10/5+ Inspired O2 45 Critical Value No Sodium Potassium Chloride Carbon Dioxide Anion Gap BUN Creatinine Estimated GFR POC Glucose 219 H Random Glucose Calcium Prot Corrected Calcium Phosphorus Magnesium Total Bilirubin AST ALT Alkaline Phosphatase Total Protein Albumin MTS Gel Crossmatch See Detail 12/29/17 12/29/17 12/29/17 16:06 19:56 23:29 WBC RBC Hgb Hct MCV MCH MCHC RDW Plt Count MPV Prelim Diff (Auto) Neut % (Auto) Lymph % (Auto) [place] % (Auto) Eos % (Auto) Baso % (Auto) Neut # (Auto) Lymph # (Auto) [place] # (Auto) Eos # (Auto) Baso # (Auto) WBC Differential Diff Scan Differential Comment Puncture Site Patient Temperature O2 Saturation ABG pH ABG pCO2 ABG pO2 ABG HCO3 ABG O2 Content ABG Base Excess ABG Methemoglobin Magdiel Test Hemoglobin Carboxyhemoglobin O2 Delivery Device Vent Setting Inspired O2 Critical Value Sodium Potassium Chloride Carbon Dioxide Anion Gap BUN Creatinine Estimated GFR POC Glucose 219 H 210 H 213 H Random Glucose Calcium Prot Corrected Calcium Phosphorus Magnesium Total Bilirubin AST ALT Alkaline Phosphatase Total Protein Albumin MTS Gel Crossmatch 12/30/17 12/30/17 12/30/17 03:29 08:20 10:17 WBC 8.3 RBC 3.15 L Hgb 9.5 L Hct 28.9 L MCV 91.6 MCH 30.2 MCHC 33.0 RDW 14.8 Plt Count 174 MPV 10.5 Prelim Diff (Auto) Neut % (Auto) 75.2 H Lymph % (Auto) 11.4 [place] % (Auto) 10.1 H Eos % (Auto) 2.6 Baso % (Auto) 0.7 Neut # (Auto) 6.2 Lymph # (Auto) 0.[address] # (Auto) 0.8 Eos # (Auto) 0.2 Baso # (Auto) 0.1 WBC Differential . Diff Scan Differential Comment Auto diff final Puncture Site Patient Temperature O2 Saturation ABG pH ABG pCO2 ABG pO2 ABG HCO3 ABG O2 Content ABG Base Excess ABG Methemoglobin Magdiel Test Hemoglobin Carboxyhemoglobin O2 Delivery Device Vent Setting Inspired O2 Critical Value Sodium Potassium Chloride Carbon Dioxide Anion Gap BUN Creatinine Estimated GFR POC Glucose 190 H 197 H Random Glucose Calcium Prot Corrected Calcium Phosphorus Magnesium Total Bilirubin AST ALT Alkaline Phosphatase Total Protein Albumin MTS Gel Crossmatch 12/30/17 12/30/17 12/30/17 10:17 11:55 16:14 WBC RBC Hgb Hct MCV MCH MCHC RDW Plt Count MPV Prelim Diff (Auto) Neut % (Auto) Lymph % (Auto) [place] % (Auto) Eos % (Auto) Baso % (Auto) Neut # (Auto) Lymph # (Auto) [place] # (Auto) Eos # (Auto) Baso # (Auto) WBC Differential Diff Scan Differential Comment Puncture Site Patient Temperature O2 Saturation ABG pH ABG pCO2 ABG pO2 ABG HCO3 ABG O2 Content ABG Base Excess ABG Methemoglobin Magdiel Test Hemoglobin Carboxyhemoglobin O2 Delivery Device Vent Setting Inspired O2 Critical Value Sodium 141 Potassium 3.4 L Chloride 104 D Carbon Dioxide 28.1 Anion Gap 9 BUN 32 H Creatinine 1.00 Estimated GFR 58 L POC Glucose 219 H 198 H Random Glucose 189 H Calcium 7.3 L* Prot Corrected Calcium 7.9 L Phosphorus Magnesium Total Bilirubin 0.3 AST 31 ALT 40 Alkaline Phosphatase 99 Total Protein 5.9 L Albumin 2.3 L MTS Gel Crossmatch 12/30/17 12/30/17 12/30/17 20:43 23:26 23:51 WBC RBC Hgb Hct MCV MCH MCHC RDW Plt Count MPV Prelim Diff (Auto) Neut % (Auto) Lymph % (Auto) [place] % (Auto) Eos % (Auto) Baso % (Auto) Neut # (Auto) Lymph # (Auto) [place] # (Auto) Eos # (Auto) Baso # (Auto) WBC Differential Diff Scan Differential Comment Puncture Site Patient Temperature O2 Saturation ABG pH ABG pCO2 ABG pO2 ABG HCO3 ABG O2 Content ABG Base Excess ABG Methemoglobin Magdiel Test Hemoglobin Carboxyhemoglobin O2 Delivery Device Vent Setting Inspired O2 Critical Value Sodium Potassium 3.9 Chloride Carbon Dioxide Anion Gap BUN Creatinine Estimated GFR POC Glucose 164 H 167 H Random Glucose Calcium Prot Corrected Calcium Phosphorus Magnesium Total Bilirubin AST ALT Alkaline Phosphatase Total Protein Albumin MTS Gel Crossmatch 12/31/17 12/31/17 12/31/17 03:54 03:54 04:23 WBC 8.4 RBC 3.21 L Hgb 9.7 L Hct 29.6 L MCV 92.3 MCH 30.2 MCHC 32.8 RDW 14.8 Plt Count 204 MPV 10.4 Prelim Diff (Auto) Neut % (Auto) 71.4 H Lymph % (Auto) 14.9 [place] % (Auto) 9.7 H Eos % (Auto) 3.0 Baso % (Auto) 1.0 Neut # (Auto) 6.0 Lymph # (Auto) 1.3 [place] # (Auto) 0.8 Eos # (Auto) 0.3 Baso # (Auto) 0.1 WBC Differential . Diff Scan Differential Comment Auto diff final Puncture Site Patient Temperature O2 Saturation ABG pH ABG pCO2 ABG pO2 ABG HCO3 ABG O2 Content ABG Base Excess ABG Methemoglobin Magdiel Test Hemoglobin Carboxyhemoglobin O2 Delivery Device Vent Setting Inspired O2 Critical Value Sodium 140 Potassium 3.8 Chloride 102 Carbon Dioxide 29.4 Anion Gap 9 BUN 24 H Creatinine 0.75 Estimated GFR 80 L POC Glucose 186 H Random Glucose 190 H Calcium 7.9 L Prot Corrected Calcium Phosphorus Magnesium Total Bilirubin 0.3 AST 22 ALT 30 Alkaline Phosphatase 93 Total Protein 6.2 L Albumin 2.4 L MTS Gel Crossmatch 12/31/17 12/31/17 12/31/17 08:48 12:09 20:42 WBC RBC Hgb Hct MCV MCH MCHC RDW Plt Count MPV Prelim Diff (Auto) Neut % (Auto) Lymph % (Auto) [place] % (Auto) Eos % (Auto) Baso % (Auto) Neut # (Auto) Lymph # (Auto) [place] # (Auto) Eos # (Auto) Baso # (Auto) WBC Differential Diff Scan Differential Comment Puncture Site Patient Temperature O2 Saturation ABG pH ABG pCO2 ABG pO2 ABG HCO3 ABG O2 Content ABG Base Excess ABG Methemoglobin Magdiel Test Hemoglobin Carboxyhemoglobin O2 Delivery Device Vent Setting Inspired O2 Critical Value Sodium Potassium Chloride Carbon Dioxide Anion Gap BUN Creatinine Estimated GFR POC Glucose 174 H 165 H 173 H Random Glucose Calcium Prot Corrected Calcium Phosphorus Magnesium Total Bilirubin AST ALT Alkaline Phosphatase Total Protein Albumin MTS Gel Crossmatch 12/31/17 01/01/18 01/01/18 23:19 03:43 05:18 WBC 7.7 RBC 3.36 L Hgb 10.1 L Hct 30.6 L MCV 91.1 MCH 30.0 MCHC 32.9 RDW 14.7 Plt Count 238 MPV 9.6 Prelim Diff (Auto) Slide review pending Neut % (Auto) 68.5 Lymph % (Auto) 18.8 [place] % (Auto) 9.1 H Eos % (Auto) 2.6 Baso % (Auto) 1.0 Neut # (Auto) 5.3 Lymph # (Auto) 1.5 [place] # (Auto) 0.7 Eos # (Auto) 0.2 Baso # (Auto) 0.1 WBC Differential . Diff Scan Auto diff confirmed Differential Comment . Puncture Site Patient Temperature O2 Saturation ABG pH ABG pCO2 ABG pO2 ABG HCO3 ABG O2 Content ABG Base Excess ABG Methemoglobin Magdiel Test Hemoglobin Carboxyhemoglobin O2 Delivery Device Vent Setting Inspired O2 Critical Value Sodium Potassium Chloride Carbon Dioxide Anion Gap BUN Creatinine Estimated GFR POC Glucose 178 H 188 H Random Glucose Calcium Prot Corrected Calcium Phosphorus Magnesium Total Bilirubin AST ALT Alkaline Phosphatase Total Protein Albumin MTS Gel Crossmatch 01/01/18 05:18 WBC RBC Hgb Hct MCV MCH MCHC RDW Plt Count MPV Prelim Diff (Auto) Neut % (Auto) Lymph % (Auto) [place] % (Auto) Eos % (Auto) Baso % (Auto) Neut # (Auto) Lymph # (Auto) [place] # (Auto) Eos # (Auto) Baso # (Auto) WBC Differential Diff Scan Differential Comment Puncture Site Patient Temperature O2 Saturation ABG pH ABG pCO2 ABG pO2 ABG HCO3 ABG O2 Content ABG Base Excess ABG Methemoglobin Magdiel Test Hemoglobin Carboxyhemoglobin O2 Delivery Device Vent Setting Inspired O2 Critical Value Sodium 141 Potassium 3.9 Chloride 103 Carbon Dioxide 28.6 Anion Gap 9 BUN 15 Creatinine 0.66 Estimated GFR Greater than 89 POC Glucose Random Glucose 174 H Calcium 8.3 L Prot Corrected Calcium Phosphorus 2.6 Magnesium 2.7 H Total Bilirubin AST ALT Alkaline Phosphatase Total Protein Albumin 2.4 L MTS Gel Crossmatch Result Diagrams: 01/01/18 05:18 01/01/18 05:18 Microbiology: Microbiology 12/28/17 06:10 Urine Culture - Final Clean Catch Urine 50-100,000 cfu/mL mixed shreyas (probable contaminants) Procedures: EGD 12/28/17 Colonoscopy 12/28/17 Intubation/mechanical ventilation 12/28/17 . Assessment and Plan - Disease Oriented Problem List (1) GI bleed (2) Ischemic colitis (3) Acute kidney injury (4) Paced cardiac rhythm (5) Morbid obesity (6) Diabetes mellitus (7) Bullous eruption, localized (8) Sleep disorder breathing (9) Atrial fibrillation (10) Psoriasis (11) Non-ischemic cardiomyopathy (12) Hypothyroid (13) Diabetes - Symptom Scale (1) Pain 0-10 Scale: 1 (2) Dyspnea 0-10 Scale: 3 Pertinent Non-Medical Issues: Psychosocial:Patient is originally from [place], [place]. Has lived in [place] about 20 yrs. College educated. 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 and x 1. Has been with her current unmarried partner -- Inder Ca -- for about 22 years. Has two daughters from first marriage. Izabela Pretty is 31 and per family is challenged -- on , multiple psych hospitalizations for bipolar. Valeria Mary Roby will turn 18 at the end of the month. Patient lives with Inder, two daughters, Izabela's boyfriend, and friend of Valeria Hernandez who they have been helping . Family care of patient is supplemented by daily CNAs. Spiritual: Caodaism and spirituality have not been an important part of her life. She comes from a [employer] tradition. She prays. Legal: No advance directives. Ethical issues impacting care: No known ethical / legal issues known at this time. . Important Contacts: Aline Mace (mother and proxy per [place] statutes) [phone] Inder Ca (unmarried partner of 22 years ) [phone] . Prognosis: Patient with new GI bleeding possibly due to ischemic bowel has multiple significant underlying co-morbidities including non-ischemic cardiomyopathy; asthma with 02 dependence of 5 L/min for over 10 years; morbid obesity; bedbound status for 1 year; diabetes; etc. She has been evaluated by vascular and general surgery and is not felt to be a surgical candidate. If this is, indeed, ischemia of the GI tract and it is not reversible, is likely to come within days from sepsis regardless or interventions. If this is not ischemia, there is a chance of recovery but ongoing decline is likely given her level of obesity and current bedbound status. . Code Status: Full Code Plan: == Code Status: FULL CODE == Decision Making: Patient is now awake, alert, and capacitated to make her own health care decisions. She does not want her adult daughter to serve as health care surrogate. She is still deciding between her mother and her long- term partner -- Inder. She understands that if she does not designate someone, her mother would become the proxy decision maker. == Goals of medical treatment: Palliative care consulted by goals of care. Her hospital course and problems at length including how close to she appeared just last Sunday were reviewed with patient. She confirmed her one year of bedbound status. We then discussed goals of medical treatment. Ms. Mace understands how ill she is and that she could decompensate again at any time. Pt became capacitated. Her goals have been full code and aggressive. She had endorse she "still have a 17 y/o daughter who needs her mother. I have to fight to stay alive for her." No change in goals of care today. == advance care planning- was not intersted in completing any advance directive today. == Symptoms * Pain: Longstanding neuropathic pain in upper and lower extremities which could easily reach #10 in severity. Current sources of pain might include: NG tube ; lau catheter; vascular access lines, prolonged bedbound status. * Encephalopathy: Probably multi-factorial. Resolved * Dyspnea: Has underlying cardiomyopathy and asthma. May have an infection on top of this. Dyspnea now adequately addressed with nasal cannula 02 and PRN BiPAP. * Constipation: Probably multi-factorial. There may be a component of hypothyroidism and/or diabetic gastroparesis on top of the impact of low activity. She has gone as long as 20 days without moving her bowels. Gi following. == Palliative care will continue to follow to assist with symptom management and to further clarify goals of medical treatment as the clinical course evolves. Attestation Attestation: To help prompt me to consider important information that might be impacting today's encounter and assessment, information from prior notes written by myself or my colleagues may have been "brought forward" into today's note. My signature on this note, however, is an attestation that I personally performed the exam, history, and/or decision-making noted today, and, unless otherwise indicated, the interactions with patient, family, and staff as well as the review of records all occurred today. I also attest that the listed assessment and stated plan reflect my best clinical judgment today based on the combination of historical information, prior notes, and today's exam/ interactions. When time spent is documented, it refers only to time spent today by the signer, or if indicated, combined time spent today by collaborating physician/nurse practitioner.
--- NOTE | 2018-01-01 11:01 | MB ---
cc: Shahbaz Hartmann MD DATE: 01/01/2018 REASON FOR CONSULTATION: Respiratory failure, obstructive sleep apnea, morbid obesity, and bronchial asthma. HISTORY OF PRESENT ILLNESS: The patient is a 57-year-old morbidly obese female admitted for chest pain on 12/20/2017. She is without chest pain at present. The patient has known history of COPD/bronchial, asthma, obstructive sleep apnea, on BiPAP therapy at home; diabetes, hypertension, hypothyroidism, congestive heart failure, previous paraspinal mass removed, which was benign. The patient is on bronchodilator therapy at home, as well as BiPAP therapy while sleeping. She is in no acute distress at present, however, does require oxygen therapy. No cough, no expectoration, fever or chills. PAST MEDICAL HISTORY: Essentially as outlined above. SOCIAL HISTORY: Does not smoke, does not drink. No TB. No industrial exposure. PAST MEDICAL HISTORY: 1. COPD (asthma component). 2. Obstructive sleep apnea. 3. Diabetes mellitus. 4. Hypertension. 5. Hyperlipidemia. 6. Congestive heart failure. 7. Atrial fibrillation. 8. TIA (CVA). PAST SURGICAL HISTORY: Surgical resection of paraspinal mass, benign. FAMILY HISTORY: Noncontributory. SYSTEMS REVIEW: Generally positive for heart disease. A 12-point review of systems as per HPI and past history, otherwise negative. MEDICATIONS: 1. Nebulized albuterol. 2. Xanax p.r.n. 3. Eliquis. 4. Lasix. 5. Gabapentin. 6. Hydrocortisone. 7. Linzess. 8. Protonix. 9. Potassium. 10. Bactrim. ALLERGIES: CODEINE AND PENICILLIN. PHYSICAL EXAMINATION: VITAL SIGNS: Temperature 98, pulse 80, respiration 18, blood pressure 130/70. HEENT: Unremarkable. Eyes without icterus. NECK: Without adenopathy or thyroid enlargement. CHEST: No dullness to percussion. Clear to auscultation. HEART: PMI not appreciated. S1, S2 audible. ABDOMEN: Obese, lax. Bowel sounds audible. EXTREMITIES: No clubbing, cyanosis, trace edema. LABORATORY DATA: White count 7.7, hemoglobin 10, hematocrit 30. Sodium 141, potassium 3.9, BUN 15, creatinine 0.6. IMAGING: Chest x-ray: Atelectatic change at bases, low lung volumes. IMPRESSION: 1. Respiratory failure. 2. Morbid obesity. 3. Obstructive sleep apnea. 4. Chronic obstructive pulmonary disease, bronchial asthma. PLAN: The patient will be maintained on oxygen therapy as needed, use BiPAP while sleeping. Attempt to increase activity as much as possible, given the patient's limitation. She is nonambulatory for a long time now, mostly stays in bed and uses a wheelchair should she need to go somewhere. Will check her arterial blood gas, follow her course along with you, and, depending on progress, proceed further. Her prognosis overall is poor, given her multiple medical problems. MD VERONIQUE Peña/ , 08:57 AM , 09:07 AM
--- NOTE | 2018-01-01 11:09 | P.PNGS ---
Subjective Patient reports: no new complaints, feels better (Patient has NG tube) Physical Exam Vital signs: Vital Signs 12/31/17 12:00 12/31/17 12:01 12/31/17 13:01 Temperature Pulse Rate 82 84 81 Respiratory Rate 17 24 16 Blood Pressure 152/68 H 146/65 H Pulse Oximetry 96 96 96 12/31/17 14:00 12/31/17 14:01 12/31/17 14:09 Temperature Pulse Rate 88 86 82 Respiratory Rate 19 16 16 Blood Pressure 155/74 H Pulse Oximetry 96 95 12/31/17 15:01 12/31/17 16:00 12/31/17 16:01 Temperature Pulse Rate 87 90 89 Respiratory Rate 18 21 17 Blood Pressure 148/73 H 140/66 Pulse Oximetry 96 93 L 94 L 12/31/17 17:01 12/31/17 18:00 12/31/17 18:01 Temperature Pulse Rate 91 H 98 H 95 H Respiratory Rate 17 24 18 Blood Pressure 139/75 152/71 H Pulse Oximetry 94 L 94 L 94 L 12/31/17 19:34 12/31/17 19:35 12/31/17 20:00 Temperature 98.8 F Pulse Rate 89 93 H Respiratory Rate 19 22 Blood Pressure 158/65 H Pulse Oximetry 95 95 12/31/17 20:01 12/31/17 22:00 12/31/17 22:04 Temperature Pulse Rate 92 H 86 Respiratory Rate 19 22 Blood Pressure 158/65 H Pulse Oximetry 94 L 95 96 01/01/18 00:00 01/01/18 00:01 01/01/18 00:16 Temperature 100.3 F H Pulse Rate 85 83 82 Respiratory Rate 13 13 17 Blood Pressure 147/82 H 147/82 H Pulse Oximetry 97 98 01/01/18 00:17 01/01/18 01:00 01/01/18 02:00 Temperature Pulse Rate 82 Respiratory Rate 11 L Blood Pressure Pulse Oximetry 97 96 96 01/01/18 03:56 01/01/18 03:58 01/01/18 04:00 Temperature 98.4 F Pulse Rate 76 76 Respiratory Rate 15 8 L Blood Pressure 178/86 H Pulse Oximetry 99 98 01/01/18 04:02 01/01/18 04:04 01/01/18 06:00 Temperature Pulse Rate 75 77 78 Respiratory Rate 8 L 16 11 L Blood Pressure 188/81 H 178/86 H Pulse Oximetry 97 98 97 01/01/18 07:11 01/01/18 07:12 01/01/18 07:46 Temperature Pulse Rate 82 Respiratory Rate 16 Blood Pressure Pulse Oximetry 97 99 01/01/18 08:00 01/01/18 08:01 01/01/18 10:00 Temperature Pulse Rate 80 83 86 Respiratory Rate 17 18 12 Blood Pressure 177/81 H Pulse Oximetry 98 98 97 Intake & Output 12/31/17 01/01/18 01/01/18 18:59 06:59 18:59 Intake Total 1100 / 1100 1571 / 1571 Output Total 1150 / 1150 800 / 800 Balance -50 / -50 771 / 771 Weight 202.2 kg Intake: IV 1100 / 1100 1571 / 1571 1/2 Normal Saline Inj 1,000 ML 1000 / 1000 1271 / 1271 @ 84 mls/hr IV.CONT .[id number] ERNEST[facility] Rx#:[id number] Rocephin Inj 2,000 MG In NS Inj 100 / 100 100 ML @ 200 mls/hr IV.SIG Q24H ERNESTINA Rx#:[id number] Flagyl 500 MG Inj 100 ML @ 100 100 / 100 200 / 200 mls/hr IV.SIG Q8H ERNESTINA Rx#: [id number] Output: Urine Amount (Catheter) 450 / 450 300 / 300 Indwelling Urethral Catheter 450 / 450 300 / 300 Gastric Drainage 700 / 700 500 / 500 Nasogastric Tube 700 / 700 500 / 500 Other: Date of Last Bowel Movement 12/30/17 12/30/17 12/30/17 - Constitutional no acute distress, chronically ill appearing - Routine HEENT Exam Head: Present: normocephalic - Routine Neck Exam Present: supple - Routine Respiratory Exam Present: CTA bilaterally - Routine Cardiovascular Exam Present: RRR - Routine Abdominal Exam Present: soft, normoactive bowel sounds Comments: Patient has large body habitus no abdominal discomfort although she says she has pain is is been going on for a year - Routine Neurological Exam Present: alert, oriented X3 - Detailed Neurological Exam: Coma Scale Eye Opening: Spontaneous Verbal Response: Oriented Motor Response: Obey commands Ramya Coma Scale Total: 15 - Additional findings Additional findings: ITS Impressions Toe X-Ray 12/20/17 00:00 CONCLUSION: Focal soft tissue swelling involving the fourth toe. The underlying bony structures are grossly intact. Abdomen/Pelvis CT 12/27/17 14:34 CONCLUSION: 1. Colonic distention with a large amount of stool as described, features most typical of a nonmechanical obstruction. 2. Gastric distention without a perceptible mass. A stricture in the region of the gastric antrum with the in the differential. Duodenum is decompressed. 3. There are scattered low-density lesions of the spleen, nonspecific but I believe they were present on the prior studies, just better seen today and probably benign. 4. There is infiltrate in the visualized right lung base. Venous Doppler Study 12/28/17 00:00 CONCLUSION: 1. Negative for deep venous thrombosis. Chest X-Ray 12/28/17 10:54 CONCLUSION: Low lung volumes with bibasilar consolidation likely relating to atelectasis. Temporal Bone CT 12/30/17 00:00 CONCLUSION: 1. Mild partial opacification of the middle ear bilaterally and mild partial opacification of the anterior mastoid air cells bilaterally. No evidence of focal bone erosion. Ossicles are intact. 2. Moderate severity sinusitis most prominent in the posterior right ethmoid sinus with air-fluid level seen in this region suggesting acute sinusitis. Abdomen X-Ray 01/01/18 07:00 CONCLUSION: Gaseous distention of bowel loops without obstruction. Laboratory Last Values WBC 7.7 th/mm3 (4.0-11.0) 01/01/18 05:18 RBC 3.36 mil/mm3 (4.00-5.30) L 01/01/18 05:18 Hgb 10.1 gm/dL (11.6-15.3) L 01/01/18 05:18 Hct 30.6 % (35.0-46.0) L 01/01/18 05:18 MCV 91.1 fL (80.0-100.0) 01/01/18 05:18 MCH 30.0 pg (27.0-34.0) 01/01/18 05:18 MCHC 32.9 % (32.0-36.0) 01/01/18 05:18 RDW 14.7 % (11.6-17.2) 01/01/18 05:18 Plt Count 238 th/mm3 (150-450) 01/01/18 05:18 MPV 9.6 fL (7.0-11.0) 01/01/18 05:18 Prelim Diff (Auto) Slide review pending 01/01/18 05:18 Neut % (Auto) 68.5 % (16.0-70.0) 01/01/18 05:18 Lymph % (Auto) 18.8 % (9.0-44.0) 01/01/18 05:18 Dare % (Auto) 9.1 % (0.0-8.0) H 01/01/18 05:18 Eos % (Auto) 2.6 % (0.0-4.0) 01/01/18 05:18 Baso % (Auto) 1.0 % (0.0-2.0) 01/01/18 05:18 Neut # (Auto) 5.3 th/mm3 (1.8-7.7) 01/01/18 05:18 Lymph # (Auto) 1.5 th/mm3 (1.0-4.8) 01/01/18 05:18 Dare # (Auto) 0.7 th/mm3 (0.0-0.9) 01/01/18 05:18 Eos # (Auto) 0.2 th/mm3 (0.0-0.4) 01/01/18 05:18 Baso # (Auto) 0.1 th/mm3 (0.0-0.2) 01/01/18 05:18 WBC Differential . 01/01/18 05:18 Diff Scan Auto diff confirmed 01/01/18 05:18 Seg Neuts % (Manual) 59 % (16-70) 12/21/17 02:29 Band Neuts % (Manual) 2 % (0-6) 12/21/17 02:29 Lymphocytes % (Manual) 26 % (9-44) 12/21/17 02:29 Monocytes % (Manual) 8 % (0-8) 12/21/17 02:29 Eosinophils % (Manual) 1 % (0-4) 12/21/17 02:29 Basophils % (Manual) 3 % (0-2) H 12/21/17 02:29 Metamyelocytes % (Man) 1 % (0-1) 12/21/17 02:29 Myelocytes % (Man) 2 % (0-0) H 12/20/17 08:25 Abs Neuts (Manual) 4.4 th/mm3 (1.8-7.7) 12/21/17 02:29 Differential Comment . 01/01/18 05:18 Platelet Estimate Normal (Normal) 12/21/17 02:29 Platelet Morphology Normal (Normal) 12/21/17 02:29 RBC Morphology Normal (Normal) 12/20/17 08:25 Ovalocytes 1+ (None) H 12/21/17 02:29 Keratocytes Occ (None) H 12/21/17 02:29 PT 11.0 sec (9.8-11.6) 12/27/17 17:50 INR 1.1 Ratio 12/27/17 17:50 APTT 29.4 sec (24.3-30.1) 12/20/17 08:25 Puncture Site Right radial 12/29/17 12:07 Patient Temperature 98.6 12/29/17 12:07 O2 Saturation 95 % (90-100) 12/29/17 12:07 ABG pH 7.39 (7.380-7.420) 12/29/17 12:07 ABG pCO2 49 mmHg (38-42) H 12/29/17 12:07 ABG pO2 87 mmHG (61-120) 12/29/17 12:07 ABG HCO3 28 mmol/L (22-26) H 12/29/17 12:07 ABG O2 Content 13.0 Vol % (12.0-20.0) 12/29/17 12:07 ABG Base Excess 3.7 mmol/L (-2-2) H 12/29/17 12:07 ABG Methemoglobin 1.3 % (0-2) 12/29/17 12:07 Magdiel Test Present 12/29/17 12:07 Hemoglobin 9.7 G/DL (12.0-16.0) L 12/29/17 12:07 Carboxyhemoglobin 1.1 % (0-4) 12/29/17 12:07 O2 Delivery Device Ventilator 12/29/17 12:07 Liter Flow 15.00 L/M 12/27/17 22:48 Vent Setting Cpap 10/5+ 12/29/17 12:07 Inspired O2 45 % 12/29/17 12:07 Critical Value No 12/29/17 12:07 Sodium 141 meq/L (136-145) 01/01/18 05:18 Potassium 3.9 meq/L (3.5-5.1) 01/01/18 05:18 Chloride 103 meq/L (98-107) 01/01/18 05:18 Carbon Dioxide 28.6 meq/L (21.0-32.0) 01/01/18 05:18 Anion Gap 9 meq/L (5-15) 01/01/18 05:18 BUN 15 mg/dL (7-18) 01/01/18 05:18 Creatinine 0.66 mg/dL (0.50-1.00) 01/01/18 05:18 Estimated GFR Greater than 89 mL/min (>89) 01/01/18 05:18 POC Glucose 188 mg/dl (68-110) H 01/01/18 03:43 Random Glucose 174 mg/dL (74-106) H 01/01/18 05:18 Hemoglobin A1c 8.6 % (4.3-6.0) H 12/20/17 08:25 Lactic Acid 1.7 mmol/L (0.4-2.0) 12/28/17 17:28 Calcium 8.3 mg/dL (8.5-10.1) L 01/01/18 05:18 Prot Corrected Calcium 7.9 mg/dL (8.5-10.1) L 12/30/17 10:17 Phosphorus 2.6 mg/dL (2.5-4.9) 01/01/18 05:18 Magnesium 2.7 mg/dL (1.5-2.5) H 01/01/18 05:18 Total Bilirubin 0.3 mg/dL (0.2-1.0) 12/31/17 03:54 AST 22 U/L (15-37) 12/31/17 03:54 ALT 30 U/L (10-53) 12/31/17 03:54 Alkaline Phosphatase 93 U/L (45-117) 12/31/17 03:54 Total Creatine Kinase 290 U/L (26-192) H 12/20/17 08:25 CK-MB (CK-2) 6.5 ng/mL (0.5-3.6) H 12/20/17 08:25 CK-MB (CK-2) % 2.2 % (0.0-4.0) 12/20/17 08:25 Troponin I Less than 0.02 ng/mL (0.02-0.05) L 12/21/17 02:29 B-Natriuretic Peptide 31 pg/mL (0-100) 12/20/17 08:25 Total Protein 6.2 g/dL (6.4-8.2) L 12/31/17 03:54 Albumin 2.4 g/dL (3.4-5.0) L 01/01/18 05:18 Lipase 132 U/L (73-393) 12/20/17 08:25 Urine Color Cristal (Yellw/Straw) 12/28/17 06:10 Urine Clarity Cloudy (Clear) H 12/28/17 06:10 Urine pH 5.0 (5.0-8.5) 12/28/17 06:10 Ur Specific [place] 1.045 (1.002-1.035) H 12/28/17 06:10 Urine Protein 30 mg/dL (Neg-Trace) H 12/28/17 06:10 Urine Glucose (UA) Negative mg/dL (Negative) 12/28/17 06:10 Urine Ketones Negative mg/dL (Negative) 12/28/17 06:10 Urine Occult Blood Moderate (Negative) H 12/28/17 06:10 Urine Nitrate Negative (Negative) 12/28/17 06:10 Urine Bilirubin Negative (Negative) 12/28/17 06:10 Urine Urobilinogen 4 or greater mg/dL (Less than 2) 12/28/17 06:10 Ur Leukocyte Esterase Moderate (Negative) H 12/28/17 06:10 Urine RBC 13 /hpf (0-3) H 12/28/17 06:10 Urine WBC /hpf (0-5) 12/28/17 06:10 Urine WBC Clumps Many (None) H 12/28/17 06:10 Ur Squamous Epith Cells 1 /hpf (0-5) 12/28/17 06:10 Urine Bacteria Many /hpf (None) H 12/28/17 06:10 Hyaline Casts 6 /lpf (0-3) 12/28/17 06:10 Granular Casts 11 /lpf (None) 12/28/17 06:10 Urine Mucus Few /lpf (Occasional) H 12/28/17 06:10 Micro UA Comment Culture indicated 12/28/17 06:10 Urine Culture Comments Culture indicated 12/28/17 06:10 Nasal Screen MRSA (PCR) Not detected (Negative) 12/27/17 21:15 Blood Type A Positive 12/27/17 17:50 Antibody Screen Negative 12/27/17 17:50 MTS Gel Crossmatch See Detail 12/27/17 17:50 Bld Prod Order Comment 12/27/17 17:50 - Urinary Catheter Management Indwelling Urethral Catheter Cath placed during this visit: yes Reason for continuing: Chronic Urinary Retention Insertion date: 12/28/17 Insertion time: 05:00 Assessment and Plan - Assessment (1) Gastritis Code(s): K29.70 - Gastritis, unspecified, without bleeding Status: Acute Plan: 57 year old female s/p EGD and colonoscopy with colitis ???gastric ischemia only to greater curve -Now extubated -Reports she has had intermediate pain for a few years but due to her lack of mobility she has been unable to see a doctor -NGT to LIWS still has out put -Diet per GI -GI planning of repeat EGD in the upcoming days; will follow -Otherwise no surgical plans (2) Colitis Code(s): K52.9 - Noninfective gastroenteritis and colitis, unspecified Status : Acute (3) Paced cardiac rhythm Status: Acute (4) Morbid obesity Code(s): E66.01 - Morbid (severe) obesity due to excess calories Status: Chronic (5) Diabetes Code(s): E11.9 - Type 2 diabetes mellitus without complications Status: Chronic - Plan At this time with her clinical condition I do not see any operative intervention that would benefit this patient. She has a whole list of comorbidities that put her at risk for any surgical intervention. Apparently she did not tolerate the EGD very well and required mechanical ventilation. At this time I would recommend maximal medical therapy to treat her gastritis and esophagitis Discharge Planning: None at this time - Attending Attestation NOTE FOR SURGICAL ATTENDING, DR. FANTASMA BERGER I attest that I had a [id number] encounter with the patient on the same day, and personally performed and documented my assessment and findings in the medical record. The following services were provided during this hospital visit: Chart data review, vital sign assessments/reviewing monitor data Review of consultations notes if present. Medication orders/review and/or management Ordering and/or reviewing lab tests Ordering and/or interpreting/reviewing x-rays and/or diagnostic studies Care of the patient and discussion of the patient with the care team Documentation time To help prompt me to consider important information that might be impacting today's encounter and assessment, Information from prior notes written by myself or my colleagues may have been "brought forward/copy and pasted" into today's note.
--- NOTE | 2018-01-01 14:48 | P.PNGI ---
Subjective Interval history: Pt transferred out of ICU to medical floor. Complaining of continued nausea, but she would like her diet advanced. RN Anna notified me of some BRB in her suction tubing. Pt complaining of continued abdominal pain. <Maday Ratliff - Last Filed: 01/01/18 14:38> Physical Exam Vital signs: Vital Signs 12/31/17 15:01 12/31/17 16:00 12/31/17 16:01 Temperature Pulse Rate 87 90 89 Respiratory Rate 18 21 17 Blood Pressure 148/73 H 140/66 Pulse Oximetry 96 93 L 94 L 12/31/17 17:01 12/31/17 18:00 12/31/17 18:01 Temperature Pulse Rate 91 H 98 H 95 H Respiratory Rate 17 24 18 Blood Pressure 139/75 152/71 H Pulse Oximetry 94 L 94 L 94 L 12/31/17 19:34 12/31/17 19:35 12/31/17 20:00 Temperature 98.8 F Pulse Rate 89 93 H Respiratory Rate 19 22 Blood Pressure 158/65 H Pulse Oximetry 95 95 12/31/17 20:01 12/31/17 22:00 12/31/17 22:04 Temperature Pulse Rate 92 H 86 Respiratory Rate 19 22 Blood Pressure 158/65 H Pulse Oximetry 94 L 95 96 01/01/18 00:00 01/01/18 00:01 01/01/18 00:16 Temperature 100.3 F H Pulse Rate 85 83 82 Respiratory Rate 13 13 17 Blood Pressure 147/82 H 147/82 H Pulse Oximetry 97 98 01/01/18 00:17 01/01/18 01:00 01/01/18 02:00 Temperature Pulse Rate 82 Respiratory Rate 11 L Blood Pressure Pulse Oximetry 97 96 96 01/01/18 03:56 01/01/18 03:58 01/01/18 04:00 Temperature 98.4 F Pulse Rate 76 76 Respiratory Rate 15 8 L Blood Pressure 178/86 H Pulse Oximetry 99 98 01/01/18 04:02 01/01/18 04:04 01/01/18 06:00 Temperature Pulse Rate 75 77 78 Respiratory Rate 8 L 16 11 L Blood Pressure 188/81 H 178/86 H Pulse Oximetry 97 98 97 01/01/18 07:11 01/01/18 07:12 01/01/18 07:46 Temperature Pulse Rate 82 Respiratory Rate 16 Blood Pressure Pulse Oximetry 97 99 01/01/18 08:00 01/01/18 08:01 01/01/18 10:00 Temperature Pulse Rate 80 83 86 Respiratory Rate 17 18 12 Blood Pressure 177/81 H Pulse Oximetry 98 98 97 01/01/18 11:14 01/01/18 12:00 Temperature Pulse Rate 85 91 H Respiratory Rate 18 9 L Blood Pressure Pulse Oximetry 97 Intake & Output 12/31/17 01/01/18 01/01/18 18:59 06:59 18:59 Intake Total 1100 / 1100 1571 / 1571 Output Total 1150 / 1150 800 / 800 Balance -50 / -50 771 / 771 Weight 202.2 kg Intake: IV 1100 / 1100 1571 / 1571 1/2 Normal Saline Inj 1,000 ML 1000 / 1000 1271 / 1271 @ 84 mls/hr IV.CONT .[id number] ERNEST[facility] Rx#:[id number] Rocephin Inj 2,000 MG In NS Inj 100 / 100 100 ML @ 200 mls/hr IV.SIG Q24H ERNESTINA Rx#:[id number] Flagyl 500 MG Inj 100 ML @ 100 100 / 100 200 / 200 mls/hr IV.SIG Q8H ERNESTINA Rx#: [id number] Output: Urine Amount (Catheter) 450 / 450 300 / 300 Indwelling Urethral Catheter 450 / 450 300 / 300 Gastric Drainage 700 / 700 500 / 500 Nasogastric Tube 700 / 700 500 / 500 Other: Date of Last Bowel Movement 12/30/17 12/30/17 12/30/17 - Constitutional no acute distress - Routine HEENT Exam Head: Present: normocephalic, atraumatic - Routine Respiratory Exam Absent: accessory muscle use - Routine Abdominal Exam Present: soft, normoactive bowel sounds. Absent: tenderness Comments: Obese - Routine Skin Exam Present: dry, warm - Routine Neurological Exam Present: alert, oriented X3 - Urinary Catheter Management Indwelling Urethral Catheter Cath placed during this visit: yes Reason for continuing: Chronic Urinary Retention Insertion date: 12/28/17 Insertion time: 05:00 <Maday Ratliff - Last Filed: 01/01/18 14:38> Vital signs: Vital Signs 01/02/18 11:25 01/02/18 12:00 01/02/18 15:01 Temperature 97.5 F L Pulse Rate 80 81 75 Respiratory Rate 17 17 Blood Pressure 129/61 Pulse Oximetry 97 01/02/18 16:00 01/02/18 18:06 01/02/18 20:00 Temperature 97.5 F L 95.9 F L Pulse Rate 80 80 Respiratory Rate 17 18 Blood Pressure 133/78 140/68 Pulse Oximetry 98 97 97 01/03/18 00:00 01/03/18 04:12 01/03/18 05:12 Temperature 96.1 F L 96.1 F L Pulse Rate 72 82 78 Respiratory Rate 18 18 17 Blood Pressure 134/61 155/60 H Pulse Oximetry 98 98 01/03/18 08:22 Temperature Pulse Rate 75 Respiratory Rate 12 Blood Pressure Pulse Oximetry 99 Intake & Output 01/02/18 01/03/18 01/03/18 18:59 06:59 18:59 Intake Total 1375 / 1375 400 / 400 Output Total 725 / 725 300 / 300 Balance 650 / 650 100 / 100 Weight 201.9 kg Intake: IV 1200 / 1200 200 / 200 1/2 Normal Saline Inj 1,000 ML 1000 / 1000 @ 84 mls/hr IV.CONT .[id number] ERNEST[facility] Rx#:[id number] Rocephin Inj 2,000 MG In NS Inj 100 / 100 100 ML @ 200 mls/hr IV.SIG Q24H ERNESTINA Rx#:[id number] Flagyl 500 MG Inj 100 ML @ 100 200 / 200 100 / 100 mls/hr IV.SIG Q8H ERNESTINA Rx#: [id number] Oral 175 / 175 200 / 200 Output: Urine 225 / 225 300 / 300 Gastric Drainage 500 / 500 Nasogastric Tube 500 / 500 Other: Date of Last Bowel Movement 12/30/17 # Bowel Movements 1 - Urinary Catheter Management Indwelling Urethral Catheter Cath placed during this visit: no <Queenie Mcgovern - Last Filed: 01/03/18 09:47> Results - Labs CBC & Chem 7: 01/01/18 05:18 01/01/18 05:18 Laboratory Results - last 24 hr 12/31/17 12/31/17 01/01/18 20:42 23:19 03:43 WBC RBC Hgb Hct MCV MCH MCHC RDW Plt Count MPV Prelim Diff (Auto) Neut % (Auto) Lymph % (Auto) [place] % (Auto) Eos % (Auto) Baso % (Auto) Neut # (Auto) Lymph # (Auto) [place] # (Auto) Eos # (Auto) Baso # (Auto) WBC Differential Diff Scan Differential Comment Sodium Potassium Chloride Carbon Dioxide Anion Gap BUN Creatinine Estimated GFR POC Glucose 173 H 178 H 188 H Random Glucose Calcium Phosphorus Magnesium Albumin 01/01/18 01/01/18 01/01/18 05:18 05:18 11:52 WBC 7.7 RBC 3.36 L Hgb 10.1 L Hct 30.6 L MCV 91.1 MCH 30.0 MCHC 32.9 RDW 14.7 Plt Count 238 MPV 9.6 Prelim Diff (Auto) Slide review pending Neut % (Auto) 68.5 Lymph % (Auto) 18.8 [place] % (Auto) 9.1 H Eos % (Auto) 2.6 Baso % (Auto) 1.0 Neut # (Auto) 5.3 Lymph # (Auto) 1.5 [place] # (Auto) 0.7 Eos # (Auto) 0.2 Baso # (Auto) 0.1 WBC Differential . Diff Scan Auto diff confirmed Differential Comment . Sodium 141 Potassium 3.9 Chloride 103 Carbon Dioxide 28.6 Anion Gap 9 BUN 15 Creatinine 0.66 Estimated GFR Greater than 89 POC Glucose 186 H Random Glucose 174 H Calcium 8.3 L Phosphorus 2.6 Magnesium 2.7 H Albumin 2.4 L - Imaging Impressions Abdomen X-Ray 01/01/18 07:00 CONCLUSION: Gaseous distention of bowel loops without obstruction. <Maday Ratliff - Last Filed: 01/01/18 14:38> - Labs CBC & Chem 7: 01/02/18 10:31 01/01/18 05:18 Laboratory Results - last 24 hr 01/02/18 01/02/18 01/02/18 10:31 13:37 18:48 Hgb 10.0 L Hct 31.0 L POC Glucose 175 H 140 H 01/02/18 01/03/18 01/03/18 22:10 04:28 08:03 Hgb Hct POC Glucose 173 H 154 H 151 H <Queenie Mcgovern - Last Filed: 01/03/18 09:47> Assessment and Plan - Plan Assessment: - Nausea, vomiting, abdominal distention and pain, constipation- consult on (12/27 ) Today began having excessive burping and now has had multiple episodes of emesis today. Reportedly pt had coffee ground emesis, but the emesis she points to on her gown appears to be more brown in color. Pt is unsure when her last BM was, has had enemas, laxatives, and stool softeners and states has not had any significant stool. Does report passing flatus. States abdomen feels distended. Complaining of generalized abdominal pain, intermittent, described as dull. Was previously tolerating a regular diet but a few days ago had to be switched to liquids. KUB on 12/24 showed normal bowel gas pattern. Has never had EGD or colonoscopy. Denies ETOH, smoking, illicit drugs, NSAID use. Only previous abdominal surgery was C- section Of note, pt is on Elqiuis last dose was this morning CT abdomen and pelvis (12/27) Colonic distention with a large amount of stool as described, features most typical of a nonmechanical obstruction. Gastric distention without a perceptible mass. A stricture in the region of the gastric antrum with the in the differential. Duodenum is decompressed. There are scattered low-density lesions of the spleen, nonspecific but I believe they were present on the prior studies, just better seen today and probably benign. Decompressive colonoscopy (12/28) Diverticulosis sigmoid and descending colon. Ischemic colitis in the right colon, cecum. Cecum is not very dilated. Bowel overall looks viable. A rectal tube was left in place. Internal hemorrhoids. EGD (12/28) Esophagitis distal esophagus. Ischemic changes of gastric wall involving fundus and body- greater curvature -biopsy. Rest of the stomach appeared normal. Hiatal hernia (12/31) Pt remains in ICU. She is complaining of abdominal pain and nausea, denies any emesis. Abdomen is soft. KUB from this morning revealed no dilated bowel loops. According to RN, pt still having 600 mL of gastric output through NG overnight , will likely not tolerate TF at this high of output. (01/01) Pt transferred out of ICU to medical floor today. Complaining of abdominal pain. Also complaining of nausea but states she is hungry. NG remains to CRISTOPHER, RN noticed some BRB in suction tubing, appears to possibly be from trauma from the suctioning of the NG tube on the gastric wall. KUB --> Gaseous distention of bowel loops without obstruction Plan: Clamp NG tube If emesis then turn NG back on to LIWS Trial of ice chips Repeat KUB in AM Relistor x 1- pt on narcotic pain meds H/H q 6hrs No plans for repeat EGD at this time GS signed off Further recommendations to follow Pt has been seen and examined by myself and Dr. Mcgovern and this note is written on his behalf <Maday Ratliff - Last Filed: 01/01/18 14:38> - Plan Patient was seen and examined, agree with above note, we will try another dose of Relistor, advised the patient to reduce the amount of narcotics as much as possible <Queenie Mcgovern - Last Filed: 01/03/18 09:47>
[2018-01-01] MEDS ORDERED: Methylnaltrexone Inj 12 MG/0.6 ML Vial SQ ONE (15:00)
[2018-01-01] MEDS: Sodium Chloride 0.45 % Inj 1,000 ML IV.CONT SCH ×2 (16:21→16:22)
--- NOTE | 2018-01-01 17:22 | P.PNIM ---
Subjective Interval history: Patient seen this morning. Reports continued abdominal pain. Denies any chest pain or shortness of breath. Would like diet. Physical Exam Vital signs: Vital Signs 12/31/17 18:00 12/31/17 18:01 12/31/17 19:34 Temperature Pulse Rate 98 H 95 H 89 Respiratory Rate 24 18 19 Blood Pressure 152/71 H Pulse Oximetry 94 L 94 L 12/31/17 19:35 12/31/17 20:00 12/31/17 20:01 Temperature 98.8 F Pulse Rate 93 H 92 H Respiratory Rate 22 19 Blood Pressure 158/65 H 158/65 H Pulse Oximetry 95 95 94 L 12/31/17 22:00 12/31/17 22:04 01/01/18 00:00 Temperature 100.3 F H Pulse Rate 86 85 Respiratory Rate 22 13 Blood Pressure 147/82 H Pulse Oximetry 95 96 97 01/01/18 00:01 01/01/18 00:16 01/01/18 00:17 Temperature Pulse Rate 83 82 Respiratory Rate 13 17 Blood Pressure 147/82 H Pulse Oximetry 98 97 01/01/18 01:00 01/01/18 02:00 01/01/18 03:56 Temperature Pulse Rate 82 76 Respiratory Rate 11 L 15 Blood Pressure Pulse Oximetry 96 96 01/01/18 03:58 01/01/18 04:00 01/01/18 04:02 Temperature 98.4 F Pulse Rate 76 75 Respiratory Rate 8 L 8 L Blood Pressure 178/86 H 188/81 H Pulse Oximetry 99 98 97 01/01/18 04:04 01/01/18 06:00 01/01/18 07:11 Temperature Pulse Rate 77 78 82 Respiratory Rate 16 11 L 16 Blood Pressure 178/86 H Pulse Oximetry 98 97 01/01/18 07:12 01/01/18 07:46 01/01/18 08:00 Temperature Pulse Rate 80 Respiratory Rate 17 Blood Pressure Pulse Oximetry 97 99 98 01/01/18 08:01 01/01/18 10:00 01/01/18 11:14 Temperature Pulse Rate 83 86 85 Respiratory Rate 18 12 18 Blood Pressure 177/81 H Pulse Oximetry 98 97 01/01/18 12:00 01/01/18 16:00 Temperature 98.3 F Pulse Rate 91 H 82 Respiratory Rate 9 L 16 Blood Pressure 106/55 L Pulse Oximetry 97 95 Intake & Output 08/13/18 08/14/18 08/14/18 18:59 06:59 18:59 Intake Total 1100 / 1100 1571 / 1571 1100 / 1100 Output Total 1150 / 1150 800 / 800 Balance -50 / -50 771 / 771 1100 / 1100 Weight 202.2 kg Intake: IV 1100 / 1100 1571 / 1571 1100 / 1100 1/2 Normal Saline Inj 1,000 ML 1000 / 1000 1271 / 1271 1000 / 1000 @ 84 mls/hr IV.CONT .[id number] [facility] Rx#:[id number] Rocephin Inj 2,000 MG In NS Inj 100 / 100 100 ML @ 200 mls/hr IV.SIG Q24H [facility] Rx#:[id number] Flagyl 500 MG Inj 100 ML @ 100 100 / 100 200 / 200 100 / 100 mls/hr IV.SIG Q8H [facility] Rx#: [id number] Output: Urine Amount (Catheter) 450 / 450 300 / 300 Indwelling Urethral Catheter 450 / 450 300 / 300 Gastric Drainage 700 / 700 500 / 500 Nasogastric Tube 700 / 700 500 / 500 Other: Date of Last Bowel Movement 12/30/17 12/30/17 12/30/17 Narrative: GENERAL: SKIN: Warm and dry. HEAD: Normocephalic. EYES: No scleral icterus. No injection or drainage. NECK: Supple, trachea midline. No JVD or lymphadenopathy. CARDIOVASCULAR: Regular rate and rhythm without murmurs, gallops, or rubs. RESPIRATORY: Breath sounds equal bilaterally. No accessory muscle use. GASTROINTESTINAL: Abdomen soft, non-tender, nondistended. MUSCULOSKELETAL: No cyanosis, or edema. BACK: Nontender without obvious deformity. No CVA tenderness. - Urinary Catheter Management Indwelling Urethral Catheter Cath placed during this visit: yes Reason for continuing: Chronic Urinary Retention Insertion date: 12/28/17 Insertion time: 05:00 Results - Labs CBC & Chem 7: 01/01/18 05:18 01/01/18 05:18 Laboratory Results - last 24 hr 12/31/17 12/31/17 01/01/18 20:42 23:19 03:43 WBC RBC Hgb Hct MCV MCH MCHC RDW Plt Count MPV Prelim Diff (Auto) Neut % (Auto) Lymph % (Auto) [place] % (Auto) Eos % (Auto) Baso % (Auto) Neut # (Auto) Lymph # (Auto) [place] # (Auto) Eos # (Auto) Baso # (Auto) WBC Differential Diff Scan Differential Comment Sodium Potassium Chloride Carbon Dioxide Anion Gap BUN Creatinine Estimated GFR POC Glucose 173 H 178 H 188 H Random Glucose Calcium Phosphorus Magnesium Albumin 01/01/18 01/01/18 01/01/18 05:18 05:18 11:52 WBC 7.7 RBC 3.36 L Hgb 10.1 L Hct 30.6 L MCV 91.1 MCH 30.0 MCHC 32.9 RDW 14.7 Plt Count 238 MPV 9.6 Prelim Diff (Auto) Slide review pending Neut % (Auto) 68.5 Lymph % (Auto) 18.8 [place] % (Auto) 9.1 H Eos % (Auto) 2.6 Baso % (Auto) 1.0 Neut # (Auto) 5.3 Lymph # (Auto) 1.5 [place] # (Auto) 0.7 Eos # (Auto) 0.2 Baso # (Auto) 0.1 WBC Differential . Diff Scan Auto diff confirmed Differential Comment . Sodium 141 Potassium 3.9 Chloride 103 Carbon Dioxide 28.6 Anion Gap 9 BUN 15 Creatinine 0.66 Estimated GFR Greater than 89 POC Glucose 186 H Random Glucose 174 H Calcium 8.3 L Phosphorus 2.6 Magnesium 2.7 H Albumin 2.4 L 01/01/18 16:56 WBC RBC Hgb Hct MCV MCH MCHC RDW Plt Count MPV Prelim Diff (Auto) Neut % (Auto) Lymph % (Auto) [place] % (Auto) Eos % (Auto) Baso % (Auto) Neut # (Auto) Lymph # (Auto) [place] # (Auto) Eos # (Auto) Baso # (Auto) WBC Differential Diff Scan Differential Comment Sodium Potassium Chloride Carbon Dioxide Anion Gap BUN Creatinine Estimated GFR POC Glucose 187 H Random Glucose Calcium Phosphorus Magnesium Albumin - Imaging Impressions Abdomen X-Ray 01/01/18 07:00 CONCLUSION: Gaseous distention of bowel loops without obstruction. Assessment and Plan - Assessment (1) Chest pain Code(s): R07.9 - Chest pain, unspecified Status: Acute (2) Dyspnea Code(s): R06.00 - Dyspnea, unspecified Status: Acute (3) Paced cardiac rhythm Status: Acute - Plan //Acute hypoxemic and hypercapnic respiratory failure. Extubated. Pulmonology consulted. // Ischemic changes of the gastric wall and descending ischemic colitis in the right colon. Continues on antibiotics. GI following. // History of congestive heart failure. Echo pending. // History of chronic obstructive pulmonary disease. //Diabetes mellitus. //History of hypertension. //Morbid obesity. // Hyponatremia. Resolved //Acute renal failure. Resolved. Nephrology following // Urinary tract infection. Mixed shreyas. //Leukocytosis. Resolved. Plan: Neuro: Awake and alert. Monitor neuro status. Avoid sedatives Pulm: Continue with oxygen and maintain sats >92%. Bronchodilators, IS NIPPV PRN for resp distress = Consult pulmonology due to suspected sleep apnea. Avoid oversedation. = Pulmonology following. Breathing improved. Appreciate pulmonology assistance. CV: Monitor HR and BP and maintain MAP> 65 mmHg. Lactic acid 1.7. On NS@100ml/hr, for 2D echo = Echo pending EF 4550%. Concentric hypertrophy, likely secondary to hypertension. : Monitor renal function, I's and O's and avoid nephrotoxins. Renal is following- Dr. Guzman =Renal function is better Cr: 0.75 from 2.47 GI: Keep n.p.o. on Protonix 40 mg daily for GI prophylaxis. s/p EGD, colonoscopy: ischemic changes of the gastric wall and ischemic colitis of the right colon. GI, Surgery following = 12/31 still with 600 mL output from OG tube. Possible trickle feeds as per GI when this goes down. = 01/01. General surgery has signed off. GI following. Clamp NG tube try diet. Continue Relistor as per GI. Appreciate assistance. ID: //[id number] //Ischemic colitis = Reviewed CT with possible ethmoid sinusitis. = Leukocytosis has resolved. = continue with abx(Rocephin and Flagyl). Monitor for signs of infections(fever and WBC). Heme: Monitor CBC and coags. Endo: SSI, medium scale with Accu-Cheks q.4 for glycemic control. //GI prophylaxis with Protonix //DVT prophylaxis with heparin subcutaneously. Doppler US LE negative for DVT 12/28 Palliative Care is following Code status: Full code Discharge Planning: PT consult pending Expect to take some time. Will need rehab Will need GI clearance. (1) Chest pain Qualifiers: Chest pain type: unspecified Qualified Code(s): R07.9 - Chest pain, unspecified (2) Dyspnea Qualifiers: Dyspnea type: shortness of breath Qualified Code(s): R06.02 - Shortness of breath; R06.00 - Dyspnea, unspecified; R06.01 - Orthopnea
[2018-01-01 22:19] LABS: Hematocrit 30.6 % (35.0-46.0); Hemoglobin 10.4 gm/dL (11.6-15.3)
[2018-01-02] MEDS: Insulin NovoLIN Regular Correctional Sugar Inj SQ SCH ×7 (00:13→22:10)
[2018-01-02 04:40] LABS: Hematocrit 30.7 % (35.0-46.0); Hemoglobin 10.1 gm/dL (11.6-15.3)
[2018-01-02] MEDS: Sodium Chloride 0.45 % Inj 1,000 ML IV.CONT SCH ×3 (06:51→22:01)
[2018-01-02] MEDS: Pantoprazole Inj 40 MG Vial IV.PUSH SCH ×2 (09:00→22:03)
[2018-01-02] MEDS: Budesonide-Formoterol 160/4.5 MCG 6 GM Inhaler INH SCH ×2 (09:00→22:03)
[2018-01-02] MEDS: Polyethylene Glycol 3350 17 GM Packet PO SCH (09:00)
[2018-01-02] MEDS: Hydrocortisone 2.5% Cream 30 GM Tube TOPICAL SCH ×2 (09:00→22:03)
--- NOTE | 2018-01-02 09:18 | XR ---
EXAM DATE: 01/02/2018 9:10 AM EDT AGE/SEX: 57 years / Female INDICATIONS: Abdominal distention. CLINICAL DATA: This is the patient's subsequent encounter. Patient reports that signs and symptoms h ave been present for 2 weeks and indicates a pain score of 10/10. MEDICAL/SURGICAL HISTORY: . Transient ischemic attack. Congestive heart failure. Renal failure, acute. Psoriasis, Hypertension, Diabetic. . Pacemaker. COMPARISON: [facility], ABDOMEN 1V KUB, 01/01/2018. . FINDINGS: Rectal tube remains stable in position. There is mild air distention of multiple bowel loops through out the abdomen characteristic of a hypodynamic ileus without obvious obstruction. The degree of dist ention may be slightly improved when compared to the prior. No obvious pneumoperitoneum. Osseous stru ctures are intact CONCLUSION: 1. Gaseous distention of multiple bowel loops throughout the abdomen in a pattern characteristic of a hypodynamic ileus. 2. Rectal tube remains stable in position. The degree of gaseous distention may be slightly improved when compared to the prior. Electronically signed by: Trey Ariza MD 01/02/2018 9:16 AM EDT
--- NOTE | 2018-01-02 10:12 | P.PNGI ---
Subjective Interval history: NG tube clamped overnight, KUB worse this morning. Pt complaining of nausea, no emesis. Mild abdominal pain. Physical Exam Vital signs: Vital Signs 01/01/18 11:14 01/01/18 12:00 01/01/18 16:00 Temperature 98.3 F Pulse Rate 85 91 H 82 Respiratory Rate 18 9 L 16 Blood Pressure 106/55 L Pulse Oximetry 97 95 01/01/18 18:19 01/01/18 20:00 01/01/18 21:17 Temperature 98.3 F Pulse Rate 79 78 Respiratory Rate 16 20 Blood Pressure 139/66 Pulse Oximetry 95 96 01/01/18 21:25 01/02/18 00:00 01/02/18 01:04 Temperature 97.8 F Pulse Rate 81 Respiratory Rate 16 Blood Pressure 128/88 Pulse Oximetry 95 99 97 01/02/18 01:10 01/02/18 02:15 01/02/18 02:16 Temperature Pulse Rate 75 Respiratory Rate 18 Blood Pressure Pulse Oximetry 97 98 01/02/18 04:42 01/02/18 04:43 01/02/18 04:51 Temperature Pulse Rate 88 Respiratory Rate 18 Blood Pressure Pulse Oximetry 97 98 01/02/18 05:28 01/02/18 07:47 01/02/18 08:00 Temperature 97.8 F 96.0 F L Pulse Rate 76 83 83 Respiratory Rate 15 17 19 Blood Pressure 119/79 121/60 Pulse Oximetry 98 98 97 Intake & Output 01/01/18 01/02/18 01/02/18 18:59 06:59 18:59 Intake Total 1200 / 1200 1300 / 1300 Output Total 300 / 300 Balance 1200 / 1200 1000 / 1000 Weight 201.9 kg Intake: IV 1200 / 1200 1200 / 1200 1/2 Normal Saline Inj 1,000 ML 1000 / 1000 1000 / 1000 @ 84 mls/hr IV.CONT .[id number] [facility] Rx#:[id number] Rocephin Inj 2,000 MG In NS Inj 100 / 100 100 ML @ 200 mls/hr IV.SIG Q24H [facility] Rx#:[id number] Flagyl 500 MG Inj 100 ML @ 100 200 / 200 100 / 100 mls/hr IV.SIG Q8H [facility] Rx#: [id number] Oral 100 / 100 Output: Urine 300 / 300 Other: # Voids 3 Date of Last Bowel Movement 12/30/17 12/30/17 - Constitutional no acute distress - Routine HEENT Exam Head: Present: normocephalic, atraumatic - Routine Respiratory Exam Absent: accessory muscle use - Routine Abdominal Exam Present: soft, normoactive bowel sounds, distended. Absent: tenderness Comments: morbidly obese - Routine Skin Exam Present: dry, warm - Routine Neurological Exam Present: alert, oriented X3 - Urinary Catheter Management Indwelling Urethral Catheter Cath placed during this visit: yes Reason for continuing: Chronic Urinary Retention Insertion date: 12/28/17 Insertion time: 05:00 Results - Labs CBC & Chem 7: 01/02/18 03:24 01/01/18 05:18 Laboratory Results - last 24 hr 01/01/18 01/01/18 01/01/18 11:52 16:56 21:01 Hgb Hct POC Glucose 186 H 187 H 162 H 01/01/18 01/02/18 01/02/18 21:20 00:18 03:24 Hgb 10.4 L 10.1 L Hct 30.6 L 30.7 L POC Glucose 163 H 01/02/18 08:30 Hgb Hct POC Glucose 162 H - Imaging Impressions Abdomen X-Ray 01/02/18 07:00 CONCLUSION: 1. Gaseous distention of multiple bowel loops throughout the abdomen in a pattern characteristic of a hypodynamic ileus. 2. Rectal tube remains stable in position. The degree of gaseous distention may be slightly improved when compared to the prior. Assessment and Plan - Plan Assessment: - Nausea, vomiting, abdominal distention and pain, constipation- consult on (12/27 ) Today began having excessive burping and now has had multiple episodes of emesis today. Reportedly pt had coffee ground emesis, but the emesis she points to on her gown appears to be more brown in color. Pt is unsure when her last BM was, has had enemas, laxatives, and stool softeners and states has not had any significant stool. Does report passing flatus. States abdomen feels distended. Complaining of generalized abdominal pain, intermittent, described as dull. Was previously tolerating a regular diet but a few days ago had to be switched to liquids. KUB on 12/24 showed normal bowel gas pattern. Has never had EGD or colonoscopy. Denies ETOH, smoking, illicit drugs, NSAID use. Only previous abdominal surgery was C- section Of note, pt is on Elqiuis last dose was this morning CT abdomen and pelvis (12/27) Colonic distention with a large amount of stool as described, features most typical of a nonmechanical obstruction. Gastric distention without a perceptible mass. A stricture in the region of the gastric antrum with the in the differential. Duodenum is decompressed. There are scattered low-density lesions of the spleen, nonspecific but I believe they were present on the prior studies, just better seen today and probably benign. Decompressive colonoscopy (12/28) Diverticulosis sigmoid and descending colon. Ischemic colitis in the right colon, cecum. Cecum is not very dilated. Bowel overall looks viable. A rectal tube was left in place. Internal hemorrhoids. EGD (12/28) Esophagitis distal esophagus. Ischemic changes of gastric wall involving fundus and body- greater curvature -biopsy. Rest of the stomach appeared normal. Hiatal hernia (12/31) Pt remains in ICU. She is complaining of abdominal pain and nausea, denies any emesis. Abdomen is soft. KUB from this morning revealed no dilated bowel loops. According to RN, pt still having 600 mL of gastric output through NG overnight , will likely not tolerate TF at this high of output. (01/01) Pt transferred out of ICU to medical floor today. Complaining of abdominal pain. Also complaining of nausea but states she is hungry. NG remains to LIWS, RN noticed some BRB in suction tubing, appears to possibly be from trauma from the suctioning of the NG tube on the gastric wall. KUB --> Gaseous distention of bowel loops without obstruction (01/02) NG tube clamped overnight, KUB worse this morning --> Gaseous distention of multiple bowel loops throughout the abdomen in a pattern characteristic of a hypodynamic ileus. Rectal tube remains stable in position. The degree of gaseous distention may be slightly improved when compared to the prior. Reports of some BRB in NG tube yesterday, pts hgb has remained stable Plan: Turn NG back to LIWS OK for ice chips Add Reglan Continue rectal tube to gravity Repeat KUB in AM No plans for repeat EGD at this time GS signed off Further recommendations to follow Pt has been seen and examined by myself and Dr. Mcgovern and this note is written on his behalf
[2018-01-02] MEDS: Acetaminophen-HYDROcodone 325/7.5 Liq 15 ML UDC NG/OG PRN ×2 (10:16→15:13)
--- NOTE | 2018-01-02 15:31 | P.PN ---
Subjective Interval history: Seen in her bedroom in the present of relatives, stable at this time her NG tube has to be placed again to slow suction. patient followed by General Surgery discussed with MARGARET, the patient is having some volume retention, she is in status post EGD and Colonoscopy found Gastric ischemia only to greater curvature, await repeat EGD, will order Lasix for volume overload and decrease IV fluids. Physical Exam Vital signs: Vital Signs 01/01/18 16:00 01/01/18 18:19 01/01/18 20:00 Temperature 98.3 F 98.3 F Pulse Rate 82 79 Respiratory Rate 16 16 Blood Pressure 106/55 L 139/66 Pulse Oximetry 95 95 96 01/01/18 21:17 01/01/18 21:25 01/02/18 00:00 Temperature 97.8 F Pulse Rate 78 81 Respiratory Rate 20 16 Blood Pressure 128/88 Pulse Oximetry 95 99 01/02/18 01:04 01/02/18 01:10 01/02/18 02:15 Temperature Pulse Rate 75 Respiratory Rate 18 Blood Pressure Pulse Oximetry 97 97 01/02/18 02:16 01/02/18 04:42 01/02/18 04:43 Temperature Pulse Rate 88 Respiratory Rate 18 Blood Pressure Pulse Oximetry 98 97 01/02/18 04:51 01/02/18 05:28 01/02/18 07:47 Temperature 97.8 F Pulse Rate 76 83 Respiratory Rate 15 17 Blood Pressure 119/79 Pulse Oximetry 98 98 98 01/02/18 08:00 01/02/18 11:25 01/02/18 12:00 Temperature 96.0 F L 97.5 F L Pulse Rate 85 80 81 Respiratory Rate 19 17 17 Blood Pressure 121/60 129/61 Pulse Oximetry 97 97 01/02/18 15:01 Temperature Pulse Rate 75 Respiratory Rate Blood Pressure Pulse Oximetry Intake & Output 01/01/18 01/02/18 01/02/18 18:59 06:59 18:59 Intake Total 1200 / 1200 1300 / 1300 100 / 100 Output Total 300 / 300 Balance 1200 / 1200 1000 / 1000 100 / 100 Weight 201.9 kg Intake: IV 1200 / 1200 1200 / 1200 100 / 100 1/2 Normal Saline Inj 1,000 ML 1000 / 1000 1000 / 1000 @ 84 mls/hr IV.CONT .[id number] [facility] Rx#:[id number] Rocephin Inj 2,000 MG In NS Inj 100 / 100 100 ML @ 200 mls/hr IV.SIG Q24H [facility] Rx#:[id number] Flagyl 500 MG Inj 100 ML @ 100 200 / 200 100 / 100 100 / 100 mls/hr IV.SIG Q8H [facility] Rx#: [id number] Oral 100 / 100 Output: Urine 300 / 300 Other: # Voids 3 Date of Last Bowel Movement 12/30/17 12/30/17 12/30/17 Narrative: GENERAL: Morbid obese patient in no acute distress. SKIN: Warm and dry. HEAD: Normocephalic. EYES: No scleral icterus. erythema and edema on palpebral area, with purulent secretion NECK: Supple, trachea midline. No JVD or lymphadenopathy. CARDIOVASCULAR: Regular rate and rhythm without murmurs, gallops, or rubs. RESPIRATORY: Breath sounds equal bilaterally. No accessory muscle use. GASTROINTESTINAL: Abdomen soft, non-tender, nondistended. MUSCULOSKELETAL: No cyanosis, bilateral Edema 3+ BACK: Nontender without obvious deformity. No CVA tenderness. - Urinary Catheter Management Indwelling Urethral Catheter Cath placed during this visit: yes Reason for continuing: Chronic Urinary Retention Insertion date: 12/28/17 Insertion time: 05:00 Results - Labs CBC & Chem 7: 01/02/18 10:31 01/01/18 05:18 Laboratory Results - last 24 hr 01/01/18 01/01/18 01/01/18 16:56 21:01 21:20 Hgb 10.4 L Hct 30.6 L POC Glucose 187 H 162 H 01/02/18 01/02/18 01/02/18 00:18 03:24 08:30 Hgb 10.1 L Hct 30.7 L POC Glucose 163 H 162 H 01/02/18 01/02/18 10:31 13:37 Hgb 10.0 L Hct 31.0 L POC Glucose 175 H - Imaging Impressions Abdomen X-Ray 01/02/18 07:00 CONCLUSION: 1. Gaseous distention of multiple bowel loops throughout the abdomen in a pattern characteristic of a hypodynamic ileus. 2. Rectal tube remains stable in position. The degree of gaseous distention may be slightly improved when compared to the prior. Assessment and Plan - Assessment (1) Chest pain Code(s): R07.9 - Chest pain, unspecified Status: Acute (2) Dyspnea Code(s): R06.00 - Dyspnea, unspecified Status: Acute (3) Paced cardiac rhythm Status: Acute - Plan 1. Acute hypoxemic and hypercapnic respiratory failure, fire protection specialist following, status post Endotracheal intubation and Extubation, developed ischemic changes of the gastric wall and descending ischemic colitis in the right colon. Continues on antibiotics. GI following. 2. Ischemic Colitis. s/p EGD, colonoscopy: ischemic changes of the gastric wall and ischemic colitis of the right colon. Rocephin and Flagyl. 3. COPD stable no exacerbation. 4. DM II continue sliding scale at this time at slow suction 5. Hypertension controlled. 6. Morbid obesity strongly recommended diet and exercise as outpatient. 7. Suspected FELIPE. 8. Congestive Heart failure EF 45-50%. concentric hypertrophy likely secondary to Hypertension, at this time discussed with general surgery recommended for Lasix one dose due to volume overload. 9. Conjunctivitis started on Cipro ophthalmic and artificial tears. 10. MARÍA ELENA improved on IV fluids nephrology specialist following, needed to give one dose of Lasix will decrease IV fluids to 75 ml per hour. GI prophylaxis with Protonix DVT prophylaxis with heparin subcutaneously. Code Status: Full Code. Discussed Condition With: Patient and multiple relatives in the room. Discharge Planning: once cleared by GI specialist and surgery. (1) Chest pain Qualifiers: Chest pain type: unspecified Qualified Code(s): R07.9 - Chest pain, unspecified (2) Dyspnea Qualifiers: Dyspnea type: shortness of breath Qualified Code(s): R06.02 - Shortness of breath; R06.00 - Dyspnea, unspecified; R06.01 - Orthopnea
[2018-01-02] MEDS ORDERED: Methylnaltrexone Inj 12 MG/0.6 ML Vial SQ ONE (16:04)
--- NOTE | 2018-01-02 17:19 | P.PNGS ---
<Maisha He - Last Filed: 01/02/18 17:15> Subjective Interval history: Only complaint is that about her severe fluid retention Physical Exam Vital signs: Vital Signs 01/01/18 18:19 01/01/18 20:00 01/01/18 21:17 Temperature 98.3 F Pulse Rate 79 78 Respiratory Rate 16 20 Blood Pressure 139/66 Pulse Oximetry 95 96 01/01/18 21:25 01/02/18 00:00 01/02/18 01:04 Temperature 97.8 F Pulse Rate 81 Respiratory Rate 16 Blood Pressure 128/88 Pulse Oximetry 95 99 97 01/02/18 01:10 01/02/18 02:15 01/02/18 02:16 Temperature Pulse Rate 75 Respiratory Rate 18 Blood Pressure Pulse Oximetry 97 98 01/02/18 04:42 01/02/18 04:43 01/02/18 04:51 Temperature Pulse Rate 88 Respiratory Rate 18 Blood Pressure Pulse Oximetry 97 98 01/02/18 05:28 01/02/18 07:47 01/02/18 08:00 Temperature 97.8 F 96.0 F L Pulse Rate 76 83 85 Respiratory Rate 15 17 19 Blood Pressure 119/79 121/60 Pulse Oximetry 98 98 97 01/02/18 11:25 01/02/18 12:00 01/02/18 15:01 Temperature 97.5 F L Pulse Rate 80 81 75 Respiratory Rate 17 17 Blood Pressure 129/61 Pulse Oximetry 97 Intake & Output 01/01/18 01/02/18 01/02/18 18:59 06:59 18:59 Intake Total 1200 / 1200 1300 / 1300 100 / 100 Output Total 300 / 300 Balance 1200 / 1200 1000 / 1000 100 / 100 Weight 201.9 kg Intake: IV 1200 / 1200 1200 / 1200 100 / 100 1/2 Normal Saline Inj 1,000 ML 1000 / 1000 1000 / 1000 @ 84 mls/hr IV.CONT .[id number] ERNESTINA Rx#:[id number] Rocephin Inj 2,000 MG In NS Inj 100 / 100 100 ML @ 200 mls/hr IV.SIG Q24H [facility] Rx#:[id number] Flagyl 500 MG Inj 100 ML @ 100 200 / 200 100 / 100 100 / 100 mls/hr IV.SIG Q8H ERNEST[facility] Rx#: [id number] Oral 100 / 100 Output: Urine 300 / 300 Other: # Voids 3 Date of Last Bowel Movement 12/30/17 12/30/17 12/30/17 Narrative: Alert and awake Cardio: RRR Resp: CTAB Abd: soft obese non tender Severe BLE edema - Urinary Catheter Management Indwelling Urethral Catheter Cath placed during this visit: yes Reason for continuing: Chronic Urinary Retention Insertion date: 12/28/17 Insertion time: 05:00 Assessment and Plan - Assessment (1) Gastritis Code(s): K29.70 - Gastritis, unspecified, without bleeding Status: Acute Plan: 57 year old female s/p EGD and colonoscopy with colitis ???gastric ischemia only to greater curve -Stable on RA -Await repeat EGD -Discussed with Dr. Nixon about fluid retention--- He will order Lasix (2) Colitis Code(s): K52.9 - Noninfective gastroenteritis and colitis, unspecified Status : Acute (3) Paced cardiac rhythm Status: Acute (4) Morbid obesity Code(s): E66.01 - Morbid (severe) obesity due to excess calories Status: Chronic (5) Diabetes Code(s): E11.9 - Type 2 diabetes mellitus without complications Status: Chronic <Fantasma Berger - Last Filed: 01/02/18 18:59> Physical Exam Vital signs: Vital Signs 01/01/18 20:00 01/01/18 21:17 01/01/18 21:25 Temperature 98.3 F Pulse Rate 79 78 Respiratory Rate 16 20 Blood Pressure 139/66 Pulse Oximetry 96 95 01/02/18 00:00 01/02/18 01:04 01/02/18 01:10 Temperature 97.8 F Pulse Rate 81 Respiratory Rate 16 Blood Pressure 128/88 Pulse Oximetry 99 97 97 01/02/18 02:15 01/02/18 02:16 01/02/18 04:42 Temperature Pulse Rate 75 88 Respiratory Rate 18 18 Blood Pressure Pulse Oximetry 98 01/02/18 04:43 01/02/18 04:51 01/02/18 05:28 Temperature 97.8 F Pulse Rate 76 Respiratory Rate 15 Blood Pressure 119/79 Pulse Oximetry 97 98 98 01/02/18 07:47 01/02/18 08:00 01/02/18 11:25 Temperature 96.0 F L Pulse Rate 83 85 80 Respiratory Rate 17 19 17 Blood Pressure 121/60 Pulse Oximetry 98 97 01/02/18 12:00 01/02/18 15:01 01/02/18 16:00 Temperature 97.5 F L 97.5 F L Pulse Rate 81 75 80 Respiratory Rate 17 17 Blood Pressure 129/61 133/78 Pulse Oximetry 97 98 01/02/18 18:06 Temperature Pulse Rate Respiratory Rate Blood Pressure Pulse Oximetry 97 Intake & Output 01/01/18 01/02/18 01/02/18 18:59 06:59 18:59 Intake Total 1200 / 1200 1300 / 1300 275 / 275 Output Total 300 / 300 725 / 725 Balance 1200 / 1200 1000 / 1000 -450 / -450 Weight 201.9 kg Intake: IV 1200 / 1200 1200 / 1200 100 / 100 1/2 Normal Saline Inj 1,000 ML 1000 / 1000 1000 / 1000 @ 84 mls/hr IV.CONT .[id number] [facility] Rx#:[id number] Rocephin Inj 2,000 MG In NS Inj 100 / 100 100 ML @ 200 mls/hr IV.SIG Q24H [facility]NEST[facility] Rx#:[id number] Flagyl 500 MG Inj 100 ML @ 100 200 / 200 100 / 100 100 / 100 mls/hr IV.SIG Q8H ERNEST[facility] Rx#: [id number] Oral 100 / 100 175 / 175 Output: Urine 300 / 300 225 / 225 Gastric Drainage 500 / 500 Nasogastric Tube 500 / 500 Other: # Voids 3 Date of Last Bowel Movement 12/30/17 12/30/17 12/30/17 # Bowel Movements 1 - Urinary Catheter Management Indwelling Urethral Catheter Cath placed during this visit: no Assessment and Plan - Assessment (1) Gastritis Code(s): K29.70 - Gastritis, unspecified, without bleeding Status: Acute (2) Colitis Code(s): K52.9 - Noninfective gastroenteritis and colitis, unspecified Status : Acute (3) Paced cardiac rhythm Status: Acute (4) Morbid obesity Code(s): E66.01 - Morbid (severe) obesity due to excess calories Status: Chronic (5) Diabetes Code(s): E11.9 - Type 2 diabetes mellitus without complications Status: Chronic - Attending Attestation NOTE FOR SURGICAL ATTENDING, DR. FANTASMA BERGER I agree with above assessment and plan. The exam, history, and the medical decision-making described in the above note were completed with the assistance of the mid-level provider. I reviewed and agree with the findings presented. I attest that I had a [id number] encounter with the patient on the same day, and personally performed and documented my assessment and findings in the medical record. The following services were provided during this hospital visit: Chart data review, vital sign assessments/reviewing monitor data Review of consultations notes if present. Medication orders/review and/or management Ordering and/or reviewing lab tests Ordering and/or interpreting/reviewing x-rays and/or diagnostic studies Care of the patient and discussion of the patient with the care team Documentation time To help prompt me to consider important information that might be impacting today's encounter and assessment, Information from prior notes written by myself or my colleagues may have been "brought forward/copy and pasted" into today's note.
[2018-01-02] MEDS ORDERED: Artificial Tears Opth Drops 15 ML Bottle EACH EYE SCH (19:00)
--- NOTE | 2018-01-02 19:00 | P.PN ---
Subjective Interval history: alert nad Physical Exam Vital signs: Vital Signs 01/01/18 20:00 01/01/18 21:17 01/01/18 21:25 Temperature 98.3 F Pulse Rate 79 78 Respiratory Rate 16 20 Blood Pressure 139/66 Pulse Oximetry 96 95 01/02/18 00:00 01/02/18 01:04 01/02/18 01:10 Temperature 97.8 F Pulse Rate 81 Respiratory Rate 16 Blood Pressure 128/88 Pulse Oximetry 99 97 97 01/02/18 02:15 01/02/18 02:16 01/02/18 04:42 Temperature Pulse Rate 75 88 Respiratory Rate 18 18 Blood Pressure Pulse Oximetry 98 01/02/18 04:43 01/02/18 04:51 01/02/18 05:28 Temperature 97.8 F Pulse Rate 76 Respiratory Rate 15 Blood Pressure 119/79 Pulse Oximetry 97 98 98 01/02/18 07:47 01/02/18 08:00 01/02/18 11:25 Temperature 96.0 F L Pulse Rate 83 85 80 Respiratory Rate 17 19 17 Blood Pressure 121/60 Pulse Oximetry 98 97 01/02/18 12:00 01/02/18 15:01 01/02/18 16:00 Temperature 97.5 F L 97.5 F L Pulse Rate 81 75 80 Respiratory Rate 17 17 Blood Pressure 129/61 133/78 Pulse Oximetry 97 98 01/02/18 18:06 Temperature Pulse Rate Respiratory Rate Blood Pressure Pulse Oximetry 97 Intake & Output 01/01/18 01/02/18 01/02/18 18:59 06:59 18:59 Intake Total 1200 / 1200 1300 / 1300 275 / 275 Output Total 300 / 300 725 / 725 Balance 1200 / 1200 1000 / 1000 -450 / -450 Weight 201.9 kg Intake: IV 1200 / 1200 1200 / 1200 100 / 100 1/2 Normal Saline Inj 1,000 ML 1000 / 1000 1000 / 1000 @ 84 mls/hr IV.CONT .[id number] [facility] Rx#:[id number] Rocephin Inj 2,000 MG In NS Inj 100 / 100 100 ML @ 200 mls/hr IV.SIG Q24H [facility] Rx#:[id number] Flagyl 500 MG Inj 100 ML @ 100 200 / 200 100 / 100 100 / 100 mls/hr IV.SIG Q8H [facility]NEST[facility] Rx#: [id number] Oral 100 / 100 175 / 175 Output: Urine 300 / 300 225 / 225 Gastric Drainage 500 / 500 Nasogastric Tube 500 / 500 Other: # Voids 3 Date of Last Bowel Movement 12/30/17 12/30/17 12/30/17 # Bowel Movements 1 Narrative: GENERAL: Morbid obese patient in no acute distress. SKIN: Warm and dry. HEAD: Normocephalic. EYES: No scleral icterus. erythema and edema on palpebral area, with purulent secretion NECK: Supple, trachea midline. No JVD or lymphadenopathy. CARDIOVASCULAR: Regular rate and rhythm without murmurs, gallops, or rubs. RESPIRATORY: Breath sounds equal bilaterally. No accessory muscle use. GASTROINTESTINAL: Abdomen soft, non-tender, nondistended. MUSCULOSKELETAL: No cyanosis, bilateral Edema 3+ BACK: Nontender without obvious deformity. No CVA tenderness. - Urinary Catheter Management Indwelling Urethral Catheter Cath placed during this visit: yes Reason for continuing: Chronic Urinary Retention Insertion date: 12/28/17 Insertion time: 05:00 Results - Labs CBC & Chem 7: 01/02/18 10:31 01/01/18 05:18 Laboratory Results - last 24 hr 01/01/18 01/01/18 01/02/18 21:01 21:20 00:18 Hgb 10.4 L Hct 30.6 L POC Glucose 162 H 163 H 01/02/18 01/02/18 01/02/18 03:24 08:30 10:31 Hgb 10.1 L 10.0 L Hct 30.7 L 31.0 L POC Glucose 162 H 01/02/18 01/02/18 13:37 18:48 Hgb Hct POC Glucose 175 H 140 H - Imaging Impressions Abdomen X-Ray 01/02/18 07:00 CONCLUSION: 1. Gaseous distention of multiple bowel loops throughout the abdomen in a pattern characteristic of a hypodynamic ileus. 2. Rectal tube remains stable in position. The degree of gaseous distention may be slightly improved when compared to the prior. Assessment and Plan - Plan respiraty failure copd chf FELIPE PLAN O2 NEEDED BRONCHODILATOR THERAPY BIPAP INCREASE ACTIVITY
[2018-01-02] MEDS: Gabapentin Liq 250 MG/5 ML UDC NG/OG SCH (19:11)
[2018-01-02] MEDS: Ciprofloxacin 0.3% Opth Drops 5 ML Bottle EACH EYE SCH (22:03)
[2018-01-02] MEDS: Hypromellose 0.3% Opth Gel 10 GM Bottle EACH EYE SCH (22:03)
[2018-01-03] MEDS: Ciprofloxacin 0.3% Opth Drops 5 ML Bottle EACH EYE SCH ×6 (00:13→21:50)
[2018-01-03] MEDS: Insulin NovoLIN Regular Correctional Sugar Inj SQ SCH ×7 (00:13→23:52)
[2018-01-03] MEDS: Hypromellose 0.3% Opth Gel 10 GM Bottle EACH EYE SCH ×7 (00:13→23:51)
[2018-01-03] MEDS: Polyethylene Glycol 3350 17 GM Packet PO SCH (09:08)
[2018-01-03] MEDS: Gabapentin Liq 250 MG/5 ML UDC NG/OG SCH ×3 (09:08→18:27)
[2018-01-03] MEDS: Pantoprazole Inj 40 MG Vial IV.PUSH SCH ×2 (09:08→21:45)
[2018-01-03] MEDS: Hydrocortisone 2.5% Cream 30 GM Tube TOPICAL SCH ×2 (09:29→21:50)
[2018-01-03] MEDS: Budesonide-Formoterol 160/4.5 MCG 6 GM Inhaler INH SCH ×2 (09:29→21:50)
--- NOTE | 2018-01-03 10:04 | XR ---
EXAM DATE: 01/03/2018 9:45 AM EDT AGE/SEX: 57 years / Female INDICATIONS: Abdominal distention CLINICAL DATA: This is the patient's subsequent encounter. Patient reports that signs and symptoms h ave been present for 2 weeks and indicates a pain score of 10/10. MEDICAL/SURGICAL HISTORY: Transient ischemic attack. Diabetes. Hypertension. cardiovascular disease, CHF, renal failure Pacemaker. COMPARISON: [facility] [place], ABDOMEN 1V KUB, 01/02/2018. . FINDINGS: A [place] catheter overlies the pelvis. There is slight gaseous distention of small bowel loops over t he low abdomen and pelvis, grossly unchanged. Phleboliths noted in the pelvis. Mild degenerative ruiz ges in the hips. CONCLUSION: Stable, nonspecific abdomen appearance Electronically signed by: Chuckie Bateman MD 01/03/2018 10:03 AM EDT
--- NOTE | 2018-01-03 11:22 | P.PN ---
Subjective Interval history: Seen in her bedroom in the present of relatives, stable at this time her NG tube has to be placed again to slow suction. patient followed by General Surgery discussed with MARGARET, the patient is having some volume retention, she is in status post EGD and Colonoscopy found Gastric ischemia only to greater curvature, await repeat EGD, will order Lasix for volume overload and decrease IV fluids. 01/03: Seen in her bedroom in the presence of Nurse she continue with nausea, no vomit, NG tube was clamped and the patient was not able to tolerate it, has rectal tube recommended by GI specialist to repeat PKU in am tomorrow, continue to try to clamp NG tube, and repeat KUB in am tomorrow. Physical Exam Vital signs: Vital Signs 01/02/18 11:25 01/02/18 12:00 01/02/18 15:01 Temperature 97.5 F L Pulse Rate 80 81 75 Respiratory Rate 17 17 Blood Pressure 129/61 Pulse Oximetry 97 01/02/18 16:00 01/02/18 18:06 01/02/18 20:00 Temperature 97.5 F L 95.9 F L Pulse Rate 80 80 Respiratory Rate 17 18 Blood Pressure 133/78 140/68 Pulse Oximetry 98 97 97 01/03/18 00:00 01/03/18 04:12 01/03/18 05:12 Temperature 96.1 F L 96.1 F L Pulse Rate 72 82 78 Respiratory Rate 18 18 17 Blood Pressure 134/61 155/60 H Pulse Oximetry 98 98 01/03/18 08:00 01/03/18 08:22 Temperature 97.8 F Pulse Rate 76 75 Respiratory Rate 15 12 Blood Pressure 119/72 Pulse Oximetry 98 99 Intake & Output 01/02/18 01/03/18 01/03/18 18:59 06:59 18:59 Intake Total 1375 / 1375 400 / 400 Output Total 725 / 725 300 / 300 Balance 650 / 650 100 / 100 Weight 201.9 kg Intake: IV 1200 / 1200 200 / 200 1/2 Normal Saline Inj 1,000 ML 1000 / 1000 @ 84 mls/hr IV.CONT .[id number] ERNESTINA Rx#:[id number] Rocephin Inj 2,000 MG In NS Inj 100 / 100 100 ML @ 200 mls/hr IV.SIG Q24H ERNESTINA Rx#:[id number] Flagyl 500 MG Inj 100 ML @ 100 200 / 200 100 / 100 mls/hr IV.SIG Q8H ERNESTINA Rx#: [id number] Oral 175 / 175 200 / 200 Output: Urine 225 / 225 300 / 300 Gastric Drainage 500 / 500 Nasogastric Tube 500 / 500 Other: Date of Last Bowel Movement 12/30/17 # Bowel Movements 1 Narrative: GENERAL: Morbid obese patient in no acute distress. SKIN: Warm and dry. HEAD: Normocephalic. NG tube in place at slow suction. EYES: No scleral icterus. erythema and edema on palpebral area, with purulent secretion NECK: Supple, trachea midline. No JVD or lymphadenopathy. CARDIOVASCULAR: Regular rate and rhythm without murmurs, gallops, or rubs. RESPIRATORY: Breath sounds equal bilaterally. No accessory muscle use. GASTROINTESTINAL: Abdomen soft, non-tender, nondistended. MUSCULOSKELETAL: No cyanosis, bilateral Edema mild. BACK: Nontender without obvious deformity. No CVA tenderness. - Urinary Catheter Management Indwelling Urethral Catheter Cath placed during this visit: yes Reason for continuing: Chronic Urinary Retention Insertion date: 12/28/17 Insertion time: 05:00 Results - Labs CBC & Chem 7: 01/02/18 10:31 01/01/18 05:18 Laboratory Results - last 24 hr 01/02/18 01/02/18 01/02/18 10:31 13:37 18:48 Hgb 10.0 L Hct 31.0 L POC Glucose 175 H 140 H 01/02/18 01/03/18 01/03/18 22:10 04:28 08:03 Hgb Hct POC Glucose 173 H 154 H 151 H - Imaging Impressions Abdomen X-Ray 01/03/18 07:00 CONCLUSION: Stable, nonspecific abdomen appearance Assessment and Plan - Assessment (1) Chest pain Code(s): R07.9 - Chest pain, unspecified Status: Acute (2) Dyspnea Code(s): R06.00 - Dyspnea, unspecified Status: Acute (3) Paced cardiac rhythm Status: Acute - Plan 1. Acute hypoxemic and hypercapnic respiratory failure, research compliance specialist following, status post Endotracheal intubation and Extubation, developed ischemic changes of the gastric wall and descending ischemic colitis in the right colon. Continues on antibiotics. GI following. 2. Ischemic Colitis. s/p EGD, colonoscopy: ischemic changes of the gastric wall and ischemic colitis of the right colon. Rocephin and Flagyl. continue with NG tube at slow suction, will get KUB in am tomorrow and continue to clamp NG tube. 3. COPD stable no exacerbation. 4. DM II continue sliding scale at this time at slow suction 5. Hypertension controlled. 6. Morbid obesity strongly recommended diet and exercise as outpatient. 7. Suspected FELIPE. 8. Congestive Heart failure EF 45-50%. concentric hypertrophy likely secondary to Hypertension, at this time discussed with general surgery recommended for Lasix one dose due to volume overload. today I do not think the patient is in Volume overload will get BNP and follow. 9. Conjunctivitis started on Cipro ophthalmic and artificial tears. 10. MARÍA ELENA improved GI prophylaxis with Protonix DVT prophylaxis with heparin subcutaneously. Code Status: Full code. Discussed Condition With: Patient, Her mother, Nurse and MDR. Discharge Planning: once cleared by GI specialist and surgery. (1) Chest pain Qualifiers: Chest pain type: unspecified Qualified Code(s): R07.9 - Chest pain, unspecified (2) Dyspnea Qualifiers: Dyspnea type: shortness of breath Qualified Code(s): R06.02 - Shortness of breath; R06.00 - Dyspnea, unspecified; R06.01 - Orthopnea
--- NOTE | 2018-01-03 11:51 | P.PNGI ---
Subjective Interval history: Pt resting in bed, complaining of continued nausea. Denies any abdominal pain, states has been trying to take her pain medicine less. Rectal tube to Lau bag with small amount of stool. Physical Exam Vital signs: Vital Signs 01/02/18 12:00 01/02/18 15:01 01/02/18 16:00 Temperature 97.5 F L 97.5 F L Pulse Rate 81 75 80 Respiratory Rate 17 17 Blood Pressure 129/61 133/78 Pulse Oximetry 97 98 01/02/18 18:06 01/02/18 20:00 01/03/18 00:00 Temperature 95.9 F L 96.1 F L Pulse Rate 80 72 Respiratory Rate 18 18 Blood Pressure 140/68 134/61 Pulse Oximetry 97 97 98 01/03/18 04:12 01/03/18 05:12 01/03/18 08:00 Temperature 96.1 F L 97.8 F Pulse Rate 82 78 76 Respiratory Rate 18 17 15 Blood Pressure 155/60 H 119/72 Pulse Oximetry 98 98 01/03/18 08:22 Temperature Pulse Rate 75 Respiratory Rate 12 Blood Pressure Pulse Oximetry 99 Intake & Output 01/02/18 01/03/18 01/03/18 18:59 06:59 18:59 Intake Total 1375 / 1375 400 / 400 100 / 100 Output Total 725 / 725 300 / 300 Balance 650 / 650 100 / 100 100 / 100 Weight 201.9 kg Intake: IV 1200 / 1200 200 / 200 100 / 100 1/2 Normal Saline Inj 1,000 ML 1000 / 1000 @ 84 mls/hr IV.CONT .[id number] ERNESTINA Rx#:[id number] Rocephin Inj 2,000 MG In NS Inj 100 / 100 100 ML @ 200 mls/hr IV.SIG Q24H ERNESTINA Rx#:[id number] Flagyl 500 MG Inj 100 ML @ 100 200 / 200 100 / 100 100 / 100 mls/hr IV.SIG Q8H ERNESTINA Rx#: [id number] Oral 175 / 175 200 / 200 Output: Urine 225 / 225 300 / 300 Gastric Drainage 500 / 500 Nasogastric Tube 500 / 500 Other: Date of Last Bowel Movement 12/30/17 # Bowel Movements 1 - Constitutional no acute distress - Routine HEENT Exam Head: Present: normocephalic, atraumatic - Routine Respiratory Exam Absent: accessory muscle use - Routine Abdominal Exam Present: soft, normoactive bowel sounds. Absent: tenderness Comments: morbidly obese - Routine Skin Exam Present: dry, warm - Routine Neurological Exam Present: alert, oriented X3 - Urinary Catheter Management Indwelling Urethral Catheter Cath placed during this visit: yes Reason for continuing: Chronic Urinary Retention Insertion date: 12/28/17 Insertion time: 05:00 Results - Labs CBC & Chem 7: 01/02/18 10:31 01/01/18 05:18 Laboratory Results - last 24 hr 01/02/18 01/02/18 01/02/18 10:31 13:37 18:48 Hgb 10.0 L Hct 31.0 L POC Glucose 175 H 140 H 01/02/18 01/03/18 01/03/18 22:10 04:28 08:03 Hgb Hct POC Glucose 173 H 154 H 151 H - Imaging Impressions Abdomen X-Ray 01/03/18 07:00 CONCLUSION: Stable, nonspecific abdomen appearance Assessment and Plan - Plan Assessment: - Nausea, vomiting, abdominal distention and pain, constipation- consult on (12/27 ) Today began having excessive burping and now has had multiple episodes of emesis today. Reportedly pt had coffee ground emesis, but the emesis she points to on her gown appears to be more brown in color. Pt is unsure when her last BM was, has had enemas, laxatives, and stool softeners and states has not had any significant stool. Does report passing flatus. States abdomen feels distended. Complaining of generalized abdominal pain, intermittent, described as dull. Was previously tolerating a regular diet but a few days ago had to be switched to liquids. KUB on 12/24 showed normal bowel gas pattern. Has never had EGD or colonoscopy. Denies ETOH, smoking, illicit drugs, NSAID use. Only previous abdominal surgery was C- section Of note, pt is on Elqiuis last dose was this morning CT abdomen and pelvis (12/27) Colonic distention with a large amount of stool as described, features most typical of a nonmechanical obstruction. Gastric distention without a perceptible mass. A stricture in the region of the gastric antrum with the in the differential. Duodenum is decompressed. There are scattered low-density lesions of the spleen, nonspecific but I believe they were present on the prior studies, just better seen today and probably benign. Decompressive colonoscopy (12/28) Diverticulosis sigmoid and descending colon. Ischemic colitis in the right colon, cecum. Cecum is not very dilated. Bowel overall looks viable. A rectal tube was left in place. Internal hemorrhoids. EGD (12/28) Esophagitis distal esophagus. Ischemic changes of gastric wall involving fundus and body- greater curvature -biopsy. Rest of the stomach appeared normal. Hiatal hernia (12/31) Pt remains in ICU. She is complaining of abdominal pain and nausea, denies any emesis. Abdomen is soft. KUB from this morning revealed no dilated bowel loops. According to RN, pt still having 600 mL of gastric output through NG overnight , will likely not tolerate TF at this high of output. (01/01) Pt transferred out of ICU to medical floor today. Complaining of abdominal pain. Also complaining of nausea but states she is hungry. NG remains to CRISTOPHER, RN noticed some BRB in suction tubing, appears to possibly be from trauma from the suctioning of the NG tube on the gastric wall. KUB --> Gaseous distention of bowel loops without obstruction (01/02) NG tube clamped overnight, KUB worse this morning --> Gaseous distention of multiple bowel loops throughout the abdomen in a pattern characteristic of a hypodynamic ileus. Rectal tube remains stable in position. The degree of gaseous distention may be slightly improved when compared to the prior. Reports of some BRB in NG tube yesterday, pts hgb has remained stable (01/03) Pt complaining of continued nausea, denies emesis and abdominal pain. NG to LIWS. Rectal tube to lau bag with small amount of stool. Repeat KUB from this AM --> Stable, nonspecific abdomen appearance Called Alexandra [place] Discussed clamping NG and trial clear liquids, if pt does not tolerate turn NG back to suction Plan: Clamp NG tube Trial of clear liquids Reglan Continue rectal tube to gravity Repeat KUB in AM Minimize narcotic use Further recommendations to follow Pt has been seen and examined by myself and Dr. Mcgovern and this note is written on his behalf
[2018-01-03] MEDS: Sodium Chloride 0.45 % Inj 1,000 ML IV.CONT SCH ×2 (12:24→23:53)
--- NOTE | 2018-01-03 14:55 | P.PNPAL ---
Palliative care continues to follow along with Ms. Mace for ongoing assistance with communication, symptom management, and advance directives. Ms. Mace is seen in room 1729. Mother and aunt at bedside. Ms. Mace is alert, oriented, and able to make her needs known. She expressed some discomfort with her current positioning in the bed. PT techDevyn, assisted with repositioning to patient's satisfaction. Ms. Mace verbalizes she is having some pain relating to her medical condition and bedbound status. Reports medications help when administered. She appears to be in good spirits for the most part, appropriately frustrated with her medical condition. Ms. Mace is well supported by mother, aunt, and long-term significant other, Inder. She tells me she also has 2 daughters at home. One daughter with special needs and one daughter whom just graduated high school. Nurse in to provide care and administer medications during my visit. Patient expressed some questions and concerns. All addressed to her satisfaction at this time. Did not address health care surrogate at this time as patient is preoccupied with other questions/concerns and family is present. Patient previously indicated she wishes to speak with her family prior to completing. Palliative care will continue to follow throughout hospitalization.
--- NOTE | 2018-01-03 17:08 | P.PNGS ---
<Maisha He - Last Filed: 01/03/18 17:06> Subjective Interval history: Resting in bed Drawing on dry erase board Remains concerned about her fluid retention Physical Exam Vital signs: Vital Signs 01/02/18 18:06 01/02/18 20:00 01/03/18 00:00 Temperature 95.9 F L 96.1 F L Pulse Rate 80 72 Respiratory Rate 18 18 Blood Pressure 140/68 134/61 Pulse Oximetry 97 97 98 01/03/18 04:12 01/03/18 05:12 01/03/18 08:00 Temperature 96.1 F L 97.8 F Pulse Rate 82 78 76 Respiratory Rate 18 17 15 Blood Pressure 155/60 H 119/72 Pulse Oximetry 98 98 01/03/18 08:22 Temperature Pulse Rate 75 Respiratory Rate 12 Blood Pressure Pulse Oximetry 99 Intake & Output 01/02/18 01/03/18 01/03/18 18:59 06:59 18:59 Intake Total 1375 / 1375 400 / 400 1100 / 1100 Output Total 725 / 725 300 / 300 Balance 650 / 650 100 / 100 1100 / 1100 Weight 201.9 kg Intake: IV 1200 / 1200 200 / 200 1100 / 1100 1/2 Normal Saline Inj 1,000 ML 1000 / 1000 1000 / 1000 @ 84 mls/hr IV.CONT .[id number] [facility] Rx#:[id number] Rocephin Inj 2,000 MG In NS Inj 100 / 100 100 ML @ 200 mls/hr IV.SIG Q24H [facility] Rx#:[id number] Flagyl 500 MG Inj 100 ML @ 100 200 / 200 100 / 100 100 / 100 mls/hr IV.SIG Q8H [facility] Rx#: [id number] Oral 175 / 175 200 / 200 Output: Urine 225 / 225 300 / 300 Gastric Drainage 500 / 500 Nasogastric Tube 500 / 500 Other: Date of Last Bowel Movement 12/30/17 # Bowel Movements 1 Narrative: Alert and awake Cardio: RRR Resp: CTAB Abd: soft obese non tender Moderate amount of BLE and BUE edema - Urinary Catheter Management Indwelling Urethral Catheter Cath placed during this visit: yes Reason for continuing: Chronic Urinary Retention Insertion date: 12/28/17 Insertion time: 05:00 Assessment and Plan - Assessment (1) Gastritis Code(s): K29.70 - Gastritis, unspecified, without bleeding Status: Acute Plan: 57 year old female s/p EGD and colonoscopy with colitis ???gastric ischemia only to greater curve -Stable on RA -Failed trial of clear liquids; NGT back to LIWS -Await repeat EGD -Defer fluid retention management to Primary Team (2) Colitis Code(s): K52.9 - Noninfective gastroenteritis and colitis, unspecified Status : Acute (3) Paced cardiac rhythm Status: Acute (4) Morbid obesity Code(s): E66.01 - Morbid (severe) obesity due to excess calories Status: Chronic (5) Diabetes Code(s): E11.9 - Type 2 diabetes mellitus without complications Status: Chronic <Fantasma Berger - Last Filed: 01/03/18 17:32> Physical Exam Vital signs: Vital Signs 01/02/18 18:06 01/02/18 20:00 01/03/18 00:00 Temperature 95.9 F L 96.1 F L Pulse Rate 80 72 Respiratory Rate 18 18 Blood Pressure 140/68 134/61 Pulse Oximetry 97 97 98 01/03/18 04:12 01/03/18 05:12 01/03/18 08:00 Temperature 96.1 F L 97.8 F Pulse Rate 82 78 76 Respiratory Rate 18 17 15 Blood Pressure 155/60 H 119/72 Pulse Oximetry 98 98 01/03/18 08:22 01/03/18 12:00 01/03/18 16:00 Temperature 97.1 F L 97.4 F L Pulse Rate 75 82 81 Respiratory Rate 12 17 17 Blood Pressure 150/79 H 133/67 Pulse Oximetry 99 97 97 Intake & Output 01/02/18 01/03/18 01/03/18 18:59 06:59 18:59 Intake Total 1375 / 1375 400 / 400 1100 / 1100 Output Total 725 / 725 300 / 300 Balance 650 / 650 100 / 100 1100 / 1100 Weight 201.9 kg Intake: IV 1200 / 1200 200 / 200 1100 / 1100 1/2 Normal Saline Inj 1,000 ML 1000 / 1000 1000 / 1000 @ 84 mls/hr IV.CONT .[id number] [facility] Rx#:[id number] Rocephin Inj 2,000 MG In NS Inj 100 / 100 100 ML @ 200 mls/hr IV.SIG Q24H [facility] Rx#:[id number] Flagyl 500 MG Inj 100 ML @ 100 200 / 200 100 / 100 100 / 100 mls/hr IV.SIG Q8H [facility] Rx#: [id number] Oral 175 / 175 200 / 200 Output: Urine 225 / 225 300 / 300 Gastric Drainage 500 / 500 Nasogastric Tube 500 / 500 Other: Date of Last Bowel Movement 12/30/17 # Bowel Movements 1 - Routine Psychiatric Exam Present: normal affect - Urinary Catheter Management Indwelling Urethral Catheter Cath placed during this visit: no Assessment and Plan - Assessment (1) Gastritis Code(s): K29.70 - Gastritis, unspecified, without bleeding Status: Acute (2) Colitis Code(s): K52.9 - Noninfective gastroenteritis and colitis, unspecified Status : Acute (3) Paced cardiac rhythm Status: Acute (4) Morbid obesity Code(s): E66.01 - Morbid (severe) obesity due to excess calories Status: Chronic (5) Diabetes Code(s): E11.9 - Type 2 diabetes mellitus without complications Status: Chronic - Attending Attestation NOTE FOR SURGICAL ATTENDING, DR. FANTASMA BERGER I agree with above assessment and plan. The exam, history, and the medical decision-making described in the above note were completed with the assistance of the mid-level provider. I reviewed and agree with the findings presented. I attest that I had a [id number] encounter with the patient on the same day, and personally performed and documented my assessment and findings in the medical record. The following services were provided during this hospital visit: Chart data review, vital sign assessments/reviewing monitor data Review of consultations notes if present. Medication orders/review and/or management Ordering and/or reviewing lab tests Ordering and/or interpreting/reviewing x-rays and/or diagnostic studies Care of the patient and discussion of the patient with the care team Documentation time To help prompt me to consider important information that might be impacting today's encounter and assessment, Information from prior notes written by myself or my colleagues may have been "brought forward/copy and pasted" into today's note.
[2018-01-04] MEDS: Ciprofloxacin 0.3% Opth Drops 5 ML Bottle EACH EYE SCH ×6 (00:34→22:02)
[2018-01-04] MEDS: Hypromellose 0.3% Opth Gel 10 GM Bottle EACH EYE SCH ×5 (04:30→22:02)
[2018-01-04] MEDS: Insulin NovoLIN Regular Correctional Sugar Inj SQ SCH ×4 (04:32→22:04)
--- NOTE | 2018-01-04 09:08 | XR ---
EXAM DATE: 01/04/2018 8:59 AM EDT AGE/SEX: 57 years / Female INDICATIONS: Distention. CLINICAL DATA: This is the patient's subsequent encounter. Patient reports that signs and symptoms h ave been present for 2 weeks and indicates a pain score of 0/10. MEDICAL/SURGICAL HISTORY: Transient ischemic attack. Diabetes. Hypercholesterolemia. Cardiov ascular disease. CHF. Renal failure. Pacemaker. COMPARISON: January 03, 2018. FINDINGS: Catheter overlies the pelvis, presumably within the bladder. Mild ileus. No free air identified. No acute bony abnormalities. CONCLUSION: Catheter overlying pelvis presumably within the bladder. Mild ileus. Electronically signed by: Zachary Hudson MD 01/04/2018 9:07 AM EDT
[2018-01-04] MEDS: Pantoprazole Inj 40 MG Vial IV.PUSH SCH ×2 (09:14→21:50)
[2018-01-04] MEDS: Acetaminophen-HYDROcodone 325/7.5 Liq 15 ML UDC NG/OG PRN (09:15)
[2018-01-04] MEDS: Gabapentin Liq 250 MG/5 ML UDC NG/OG SCH ×3 (09:15→21:57)
[2018-01-04] MEDS: Polyethylene Glycol 3350 17 GM Packet PO SCH (09:24)
[2018-01-04] MEDS: Hydrocortisone 2.5% Cream 30 GM Tube TOPICAL SCH ×2 (09:24→22:02)
--- NOTE | 2018-01-04 11:26 | P.PNPAL ---
Reason for Visit Reason for visit: a. To assist with evaluation and management of symptoms including: pain;nausea b. To assist medical decision maker(s) with: better understanding of current medical conditions; weighing benefits/burdens of medical treatment options; making medical treatment decisions. Subjective Subjective/Interval History: Visit necessary on follow up for nausea, pain, and advance directive. Pt is a 57 year old who came in with chest pain and dyspnea(hx of asthma). Admitted to rule out ACS, which was the case pacemaker function evaluated. Condition complicated by focal soft tissue swelling of 4th toe (podiatry following no surgery) colonic distention, infiltrates, ischemic colitis in right colon, esophagitis. While undergoin pandoscopy developed hypotension. Michanically intubated for respiratory failure. Extubated 12/29. Vascular surgery did not feel pt was a candidate for any vascular procedure. General surgery consulted, felt bleeding was more a result of gastritis and esophagitis than ischemia, did not recommend any surgery. Palliative care consulted by goals of care. In terms of dyspnea. still has some on exertion. No real changes per patient. She denies pain for me this visit. Nausea- tube being clamped on antiemitics. She wants to adavance being off suction as much as she can. Goals of care/advance directive- Still debating on who to designate as health care surrogate. She does not want to burden her daughter or her mother. 5 wishes was left for pateint to review. Code status is full, she has Her goals have been full code and aggressive. She had endorse she "still have a 17 y/o daughter who needs her mother. I have to fight to stay alive for her." . Advance Directives Living Will: Never completed Health Care Surrogate: Never completed Durable Power of Colored Liquid [employer]astic Applier: Never completed Health Care Surrogate Name and Number: No designation of health care surrogate. Documented care wishes:: No written documentation of health care goals/preferences . Objective Vital Signs: Vital Signs 01/03/18 12:00 01/03/18 16:00 01/03/18 20:00 Temperature 97.1 F L 97.4 F L 97.7 F Pulse Rate 86 81 88 Respiratory Rate 17 17 18 Blood Pressure 150/79 H 133/67 157/81 H Pulse Oximetry 97 97 93 L 01/03/18 22:51 01/03/18 23:48 01/04/18 00:00 Temperature 97.9 F Pulse Rate 83 82 Respiratory Rate 17 Blood Pressure 137/78 Pulse Oximetry 97 95 01/04/18 03:42 01/04/18 04:00 01/04/18 08:00 Temperature 97.5 F L 97.9 F Pulse Rate 77 80 84 Respiratory Rate 18 17 Blood Pressure 152/79 H 152/75 H Pulse Oximetry 97 98 01/04/18 10:45 Temperature Pulse Rate 87 Respiratory Rate 16 Blood Pressure Pulse Oximetry Intake & Output 01/03/18 01/04/18 01/04/18 18:59 06:59 18:59 Intake Total 1300 / 1300 1200 / 1200 Output Total 600 / 600 650 / 650 Balance 700 / 700 550 / 550 Weight 208.5 kg Intake: IV 1200 / 1200 1200 / 1200 1/2 Normal Saline Inj 1,000 ML 1000 / 1000 1000 / 1000 @ 84 mls/hr IV.CONT .[id number] [facility] Rx#:[id number] Rocephin Inj 2,000 MG In NS Inj 100 / 100 100 ML @ 200 mls/hr IV.SIG Q24H [facility] Rx#:[id number] Flagyl 500 MG Inj 100 ML @ 100 200 / 200 100 / 100 mls/hr IV.SIG Q8H [facility] Rx#: [id number] Oral 100 / 100 Output: Urine 600 / 600 Gastric Drainage 650 / 650 Nasogastric Tube 650 / 650 Other: Date of Last Bowel Movement 12/30/17 Physical Exam: CONSTITUTIONAL/GENERAL: This is a morbidly obese patient, awake, alert, conversant in an MICU bed. Able to smile. TUBES/LINES/DRAINS: NG tube; rectal tube; lau catheter; NC 02. SKIN: No jaundice. Psoriatic plaques. Unroofed bullae on toes. Skin temperature appropriate. Not diaphoretic. EYES: Pupils equal and round. Extraocular motions intact. No scleral icterus. No injection or drainage. Fundi not examined. ENT: Unable to evaluate hearing. Nose without bleeding or purulent drainage. Throat without visible erythema, exudates, masses, or lesions . NECK: Trachea midline. Obese and difficult to examine. No palpable thyroid enlargement or nodularity. CARDIOVASCULAR: Paced rhythm without murmurs, gallops, or rubs. No JVD. Peripheral pulses symmetric very difficult to palpate due to level of obesity. RESPIRATORY/CHEST: Symmetric, unlabored respirations. Clear to auscultation. Breath sounds equal bilaterally but quite distant. No wheezes, rales, or rhonchi. GASTROINTESTINAL: Abdomen morbidly obese with large panniculus. Soft, no obvious tenderness. No hepato-splenomegaly, or palpable masses but VERY difficult to assess due to level of obesity. No guarding. Bowel sounds present. GENITOURINARY: Without palpable bladder distension. Lau catheter in place. MUSCULOSKELETAL: Extremities without clubbing, cyanosis. Edema noted in feet and hands. No mottling. LYMPHATICS: Nor examined. NEUROLOGICAL: Awake and alert. Motor and sensory grossly within normal limits. Follows commands. Cognitively sharp. Moves all extremities. PSYCHIATRIC: No obvious anxiety/depression. no apparent hallucinations or other psychotic thought process. Diagnostic Tests Laboratory: Laboratory Results - last 72 hr 01/01/18 01/01/18 01/01/18 11:52 16:56 21:01 Hgb Hct POC Glucose 186 H 187 H 162 H 01/01/18 01/02/18 01/02/18 21:20 00:18 03:24 Hgb 10.4 L 10.1 L Hct 30.6 L 30.7 L POC Glucose 163 H 01/02/18 01/02/18 01/02/18 08:30 10:31 13:37 Hgb 10.0 L Hct 31.0 L POC Glucose 162 H 175 H 01/02/18 01/02/18 01/03/18 18:48 22:10 04:28 Hgb Hct POC Glucose 140 H 173 H 154 H 01/03/18 01/03/18 01/03/18 08:03 12:43 16:55 Hgb Hct POC Glucose 151 H 135 H 132 H 01/03/18 01/04/18 01/04/18 21:47 04:29 08:40 Hgb Hct POC Glucose 130 H 133 H 136 H Result Diagrams: 01/02/18 10:31 01/01/18 05:18 Procedures: EGD 12/28/17 Colonoscopy 12/28/17 Intubation/mechanical ventilation 12/28/17 then extubated . Assessment and Plan - Disease Oriented Problem List (1) GI bleed (2) Ischemic colitis (3) Acute kidney injury (4) Paced cardiac rhythm (5) Morbid obesity (6) Diabetes mellitus (7) Bullous eruption, localized (8) Sleep disorder breathing (9) Atrial fibrillation (10) Psoriasis (11) Non-ischemic cardiomyopathy (12) Hypothyroid (13) Diabetes - Symptom Scale (1) Pain 0-10 Scale: 3 (2) Nausea 0-10 Scale: 5 Pertinent Non-Medical Issues: Psychosocial:Patient is originally from [place], [place]. Has lived in [place] about 20 yrs. College educated. 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 and x 1. Has been with her current unmarried partner -- Inder Ca -- for about 22 years. Has two daughters from first marriage. Izabela Pretty is 31 and per family is challenged -- on , multiple psych hospitalizations for bipolar. Valeria Ca will turn 18 at the end of the month. Patient lives with Inder, two daughters, Izabela's boyfriend, and friend of Valeria Hernandez who they have been helping . Family care of patient is supplemented by daily CNAs. Spiritual: Adventism and spirituality have not been an important part of her life. She comes from a Voodoo tradition. She prays. Legal: No advance directives. Still pending. Ethical issues impacting care: No known ethical / legal issues known at this time. . Important Contacts: Aline Mace (mother and proxy per [place] statutes) [phone] Inder Ca (unmarried partner of 22 years ) [phone] . Prognosis: Patient with new GI bleeding possibly due to ischemic bowel has multiple significant underlying co-morbidities including non-ischemic cardiomyopathy; asthma with 02 dependence of 5 L/min for over 10 years; morbid obesity; bedbound status for 1 year; diabetes; etc. She has been evaluated by vascular and general surgery and is not felt to be a surgical candidate. If this is, indeed, ischemia of the GI tract and it is not reversible, is likely to come within days from sepsis regardless or interventions. If this is not ischemia, there is a chance of recovery but ongoing decline is likely given her level of obesity and current bedbound status. . Code Status: Full Code Plan: == Code Status: FULL CODE == Decision Making: Patient is now awake, alert, and capacitated to make her own health care decisions. She does not want her adult daughter to serve as health care surrogate. She is still deciding between her mother and her long- term partner -- Inder. She understands that if she does not designate someone, her mother would become the proxy decision maker. == Goals of medical treatment: Code status is full, she has Her goals have been full code and aggressive. She had endorse she "still have a 17 y/o daughter who needs her mother. I have to fight to stay alive for her." Pt says she is focus on improving and getting better. == advance care planning- Still debating on who to designate as health care surrogate. She does not want to burden her daughter or her mother. 5 wishes was left for pateint to review. == Symptoms * Pain: Longstanding neuropathic pain in upper and lower extremities which could easily reach #10 in severity. Current sources of pain might include: NG tube ; lau catheter; vascular access lines, prolonged bedbound status. Prn available * nausea- vomiting- GI managing. She want to be weaned off suction if she is able to. She is very motivated to improve. == Palliative care will continue to follow to assist with symptom management and to further clarify goals of medical treatment as the clinical course evolves. Attestation Attestation: To help prompt me to consider important information that might be impacting today's encounter and assessment, information from prior notes written by myself or my colleagues may have been "brought forward" into today's note. My signature on this note, however, is an attestation that I personally performed the exam, history, and/or decision-making noted today, and, unless otherwise indicated, the interactions with patient, family, and staff as well as the review of records all occurred today. I also attest that the listed assessment and stated plan reflect my best clinical judgment today based on the combination of historical information, prior notes, and today's exam/ interactions. When time spent is documented, it refers only to time spent today by the signer, or if indicated, combined time spent today by collaborating physician/nurse practitioner.
--- NOTE | 2018-01-04 12:55 | P.PNGI ---
Subjective Interval history: Answering simple questions NG tube connected to low intermittent suction Increased nausea but no vomiting over the past 24 hours. Patient was placed back on low intermittent suction 1 hour after receiving her clear liquid diet Rectal tube minimal drainage noted dark brown bilious. <Lolly Reyes - Last Filed: 01/04/18 12:38> Interval history: Patient was seen and examined feeling better, less abdominal pain, no vomiting, started on clear liquid which seems to be tolerating okay, we will see how she is doing and may advance it slowly <Queenie Mcgovern - Last Filed: 01/04/18 15:31> Physical Exam Vital signs: Vital Signs 01/03/18 16:00 01/03/18 20:00 01/03/18 22:51 Temperature 97.4 F L 97.7 F Pulse Rate 81 88 Respiratory Rate 17 18 Blood Pressure 133/67 157/81 H Pulse Oximetry 97 93 L 97 01/03/18 23:48 01/04/18 00:00 01/04/18 03:42 Temperature 97.9 F Pulse Rate 83 82 77 Respiratory Rate 17 Blood Pressure 137/78 Pulse Oximetry 95 01/04/18 04:00 01/04/18 08:00 01/04/18 10:45 Temperature 97.5 F L 97.9 F Pulse Rate 80 84 87 Respiratory Rate 18 17 16 Blood Pressure 152/79 H 152/75 H Pulse Oximetry 97 98 01/04/18 12:00 Temperature 97.4 F L Pulse Rate 84 Respiratory Rate 17 Blood Pressure 154/76 H Pulse Oximetry 95 Intake & Output 01/03/18 01/04/18 01/04/18 18:59 06:59 18:59 Intake Total 1300 / 1300 1200 / 1200 Output Total 600 / 600 650 / 650 Balance 700 / 700 550 / 550 Weight 208.5 kg Intake: IV 1200 / 1200 1200 / 1200 1/2 Normal Saline Inj 1,000 ML 1000 / 1000 1000 / 1000 @ 84 mls/hr IV.CONT .[id number] [facility] Rx#:[id number] Rocephin Inj 2,000 MG In NS Inj 100 / 100 100 ML @ 200 mls/hr IV.SIG Q24H [facility] Rx#:[id number] Flagyl 500 MG Inj 100 ML @ 100 200 / 200 100 / 100 mls/hr IV.SIG Q8H [facility] Rx#: [id number] Oral 100 / 100 Output: Urine 600 / 600 Gastric Drainage 650 / 650 Nasogastric Tube 650 / 650 Other: Date of Last Bowel Movement 12/30/17 - Constitutional mild distress, morbidly obese - Routine HEENT Exam Head: Present: normocephalic ENT: Present: mucous membranes moist - Routine Neck Exam Present: supple (NG tube now at low intermittent suction) - Routine Cardiovascular Exam Present: S1, S2 - Routine Abdominal Exam Present: soft (Round,), normoactive bowel sounds (Rectal Lau minimal drainage dark brown bilious, mild generalized abdominal discomfort to light palpation) - Routine Skin Exam Present: intact - Routine Neurological Exam Present: alert - Urinary Catheter Management Indwelling Urethral Catheter Cath placed during this visit: yes Reason for continuing: Chronic Urinary Retention Insertion date: 12/28/17 Insertion time: 05:00 <Lolly Reyes - Last Filed: 01/04/18 12:38> Vital signs: Vital Signs 01/03/18 16:00 01/03/18 20:00 01/03/18 22:51 Temperature 97.4 F L 97.7 F Pulse Rate 81 88 Respiratory Rate 17 18 Blood Pressure 133/67 157/81 H Pulse Oximetry 97 93 L 97 01/03/18 23:48 01/04/18 00:00 01/04/18 03:42 Temperature 97.9 F Pulse Rate 83 82 77 Respiratory Rate 17 Blood Pressure 137/78 Pulse Oximetry 95 01/04/18 04:00 01/04/18 08:00 01/04/18 10:45 Temperature 97.5 F L 97.9 F Pulse Rate 80 84 87 Respiratory Rate 18 17 16 Blood Pressure 152/79 H 152/75 H Pulse Oximetry 97 98 01/04/18 12:00 01/04/18 15:00 Temperature 97.4 F L Pulse Rate 84 80 Respiratory Rate 17 Blood Pressure 154/76 H Pulse Oximetry 95 Intake & Output 01/03/18 01/04/18 01/04/18 18:59 06:59 18:59 Intake Total 1300 / 1300 1200 / 1200 1100 / 1100 Output Total 600 / 600 650 / 650 Balance 700 / 700 550 / 550 1100 / 1100 Weight 208.5 kg Intake: IV 1200 / 1200 1200 / 1200 1100 / 1100 1/2 Normal Saline Inj 1,000 ML 1000 / 1000 1000 / 1000 1000 / 1000 @ 84 mls/hr IV.CONT .[id number] [facility] Rx#:[id number] Rocephin Inj 2,000 MG In NS Inj 100 / 100 100 ML @ 200 mls/hr IV.SIG Q24H [facility] Rx#:[id number] Flagyl 500 MG Inj 100 ML @ 100 200 / 200 100 / 100 100 / 100 mls/hr IV.SIG Q8H [facility] Rx#: [id number] Oral 100 / 100 Output: Urine 600 / 600 Gastric Drainage 650 / 650 Nasogastric Tube 650 / 650 Other: Date of Last Bowel Movement 12/30/17 - Urinary Catheter Management Indwelling Urethral Catheter Cath placed during this visit: no <Queenie Mcgovern - Last Filed: 01/04/18 15:31> Results - Labs CBC & Chem 7: 01/02/18 10:31 01/01/18 05:18 Laboratory Results - last 24 hr 01/03/18 01/03/18 01/03/18 12:43 16:55 21:47 POC Glucose 135 H 132 H 130 H 01/04/18 01/04/18 04:29 08:40 POC Glucose 133 H 136 H - Imaging Impressions Abdomen X-Ray 01/04/18 06:00 CONCLUSION: Catheter overlying pelvis presumably within the bladder. Mild ileus. <Lolly Reyes - Last Filed: 01/04/18 12:38> - Labs CBC & Chem 7: 01/02/18 10:31 01/01/18 05:18 Laboratory Results - last 24 hr 01/03/18 01/03/18 01/03/18 12:43 16:55 21:47 POC Glucose 135 H 132 H 130 H 01/04/18 01/04/18 01/04/18 04:29 08:40 12:53 POC Glucose 133 H 136 H 127 H - Imaging Impressions Abdomen X-Ray 01/04/18 06:00 CONCLUSION: Catheter overlying pelvis presumably within the bladder. Mild ileus. <Queenie Mcgovern - Last Filed: 01/04/18 15:31> Assessment and Plan - Plan Assessment: - Nausea, vomiting, abdominal distention and pain, constipation- consult on (12/27 ) Today began having excessive burping and now has had multiple episodes of emesis today. Reportedly pt had coffee ground emesis, but the emesis she points to on her gown appears to be more brown in color. Pt is unsure when her last BM was, has had enemas, laxatives, and stool softeners and states has not had any significant stool. Does report passing flatus. States abdomen feels distended. Complaining of generalized abdominal pain, intermittent, described as dull. Was previously tolerating a regular diet but a few days ago had to be switched to liquids. KUB on 12/24 showed normal bowel gas pattern. Has never had EGD or colonoscopy. Denies ETOH, smoking, illicit drugs, NSAID use. Only previous abdominal surgery was C- section Of note, pt is on Elqiuis last dose was this morning CT abdomen and pelvis (12/27) Colonic distention with a large amount of stool as described, features most typical of a nonmechanical obstruction. Gastric distention without a perceptible mass. A stricture in the region of the gastric antrum with the in the differential. Duodenum is decompressed. There are scattered low-density lesions of the spleen, nonspecific but I believe they were present on the prior studies, just better seen today and probably benign. Decompressive colonoscopy (12/28) Diverticulosis sigmoid and descending colon. Ischemic colitis in the right colon, cecum. Cecum is not very dilated. Bowel overall looks viable. A rectal tube was left in place. Internal hemorrhoids. EGD (12/28) Esophagitis distal esophagus. Ischemic changes of gastric wall involving fundus and body- greater curvature -biopsy. Rest of the stomach appeared normal. Hiatal hernia (12/31) Pt remains in ICU. She is complaining of abdominal pain and nausea, denies any emesis. Abdomen is soft. KUB from this morning revealed no dilated bowel loops. According to RN, pt still having 600 mL of gastric output through NG overnight , will likely not tolerate TF at this high of output. (01/01) Pt transferred out of ICU to medical floor today. Complaining of abdominal pain. Also complaining of nausea but states she is hungry. NG remains to LIWS, RN noticed some BRB in suction tubing, appears to possibly be from trauma from the suctioning of the NG tube on the gastric wall. KUB --> Gaseous distention of bowel loops without obstruction (01/02) NG tube clamped overnight, KUB worse this morning --> Gaseous distention of multiple bowel loops throughout the abdomen in a pattern characteristic of a hypodynamic ileus. Rectal tube remains stable in position. The degree of gaseous distention may be slightly improved when compared to the prior. Reports of some BRB in NG tube yesterday, pts hgb has remained stable (01/03) Pt complaining of continued nausea, denies emesis and abdominal pain. NG to LIWS. Rectal tube to lau bag with small amount of stool. Repeat KUB from this AM --> Stable, nonspecific abdomen appearance Called RNAlexandra Discussed clamping NG and trial clear liquids, if pt does not tolerate turn NG back to suction 01/04/2018 patient is beginning to show slow gradual improvement but still having nausea and was placed back on low intermittent suction over the past 24 hours after clear liquids. No obvious emesis. Rectal Lau has minimal drainage this a.m. Mild generalized abdominal pain, minimal changes to light palpation. KUB showed stable nonobstructive pattern on 01/03/2018, today's KUB did show some mild ileus. patient is interested in goals short-term and long- term which were discussed with her. This includes maintaining NG tube clamped and being able to tolerate liquids so the NG tube can be removed when patient is stable. Discussed rectal tube removal as long as patient is not having copious amounts of clear dark brown stool. Also discussed these goals with the nurse. Encourage patient to practice reflux precautions and have the head of the bed elevated at least 45 while eating and afterwards 1 hour. Order KUB for follow-up in a.m. to reevaluate any acute changes impatience ileus. Plan: Diet clear liquids, clamp NG tube and attempt to maintain clamped as long as patient is not having obvious uncontrolled nausea or vomiting Reglan We will plan to DC the rectal Lau if there is no increased amount of dark liquid stool in Lau bag. Relistor X 1 today PPI, Zofran as needed, Cipro Flagyl, MiraLAX daily, PPI KUB in a.m. Monitor labs Further recommendations to follow Patient was seen per myself and Dr. Mcgovern, note was written on his behalf <Lolly Reyes - Last Filed: 01/04/18 12:38>
[2018-01-04] MEDS ORDERED: Methylnaltrexone Inj 12 MG/0.6 ML Vial SQ ONE (13:50)
[2018-01-04] MEDS: Sodium Chloride 0.45 % Inj 1,000 ML IV.CONT SCH (14:24)
--- NOTE | 2018-01-04 14:58 | P.PNGS ---
<Maisha He - Last Filed: 01/04/18 14:57> Subjective Interval history: Resting in bed; remains concerned about her fluid retention Physical Exam Vital signs: Vital Signs 01/03/18 16:00 01/03/18 20:00 01/03/18 22:51 Temperature 97.4 F L 97.7 F Pulse Rate 81 88 Respiratory Rate 17 18 Blood Pressure 133/67 157/81 H Pulse Oximetry 97 93 L 97 01/03/18 23:48 01/04/18 00:00 01/04/18 03:42 Temperature 97.9 F Pulse Rate 83 82 77 Respiratory Rate 17 Blood Pressure 137/78 Pulse Oximetry 95 01/04/18 04:00 01/04/18 08:00 01/04/18 10:45 Temperature 97.5 F L 97.9 F Pulse Rate 80 84 87 Respiratory Rate 18 17 16 Blood Pressure 152/79 H 152/75 H Pulse Oximetry 97 98 01/04/18 12:00 Temperature 97.4 F L Pulse Rate 84 Respiratory Rate 17 Blood Pressure 154/76 H Pulse Oximetry 95 Intake & Output 01/03/18 01/04/18 01/04/18 18:59 06:59 18:59 Intake Total 1300 / 1300 1200 / 1200 1100 / 1100 Output Total 600 / 600 650 / 650 Balance 700 / 700 550 / 550 1100 / 1100 Weight 208.5 kg Intake: IV 1200 / 1200 1200 / 1200 1100 / 1100 1/2 Normal Saline Inj 1,000 ML 1000 / 1000 1000 / 1000 1000 / 1000 @ 84 mls/hr IV.CONT .[id number] [facility] Rx#:[id number] Rocephin Inj 2,000 MG In NS Inj 100 / 100 100 ML @ 200 mls/hr IV.SIG Q24H [facility] Rx#:[id number] Flagyl 500 MG Inj 100 ML @ 100 200 / 200 100 / 100 100 / 100 mls/hr IV.SIG Q8H [facility] Rx#: [id number] Oral 100 / 100 Output: Urine 600 / 600 Gastric Drainage 650 / 650 Nasogastric Tube 650 / 650 Other: Date of Last Bowel Movement 12/30/17 Narrative: Alert and awake Cardio: RRR Resp: CTAB Abd: obese; soft; non tender + edema in BLE - Urinary Catheter Management Indwelling Urethral Catheter Cath placed during this visit: yes Reason for continuing: Chronic Urinary Retention Insertion date: 12/28/17 Insertion time: 05:00 Assessment and Plan - Assessment (1) Gastritis Code(s): K29.70 - Gastritis, unspecified, without bleeding Status: Acute Plan: 57 year old female s/p EGD and colonoscopy with colitis ???gastric ischemia only to greater curve -Mag citrate x 1 dose if can tolerated -GI ordered Relistor -Stable on RA -Attempt trial of clears again -Await repeat EGD -Defer fluid retention management to Primary Team (2) Colitis Code(s): K52.9 - Noninfective gastroenteritis and colitis, unspecified Status : Acute (3) Paced cardiac rhythm Status: Acute (4) Morbid obesity Code(s): E66.01 - Morbid (severe) obesity due to excess calories Status: Chronic (5) Diabetes Code(s): E11.9 - Type 2 diabetes mellitus without complications Status: Chronic <Fantasma Berger - Last Filed: 01/04/18 15:15> Subjective Interval history: DAILY PROGRESS NOTE FOR SURGICAL ATTENDING, DR. FANTASMA BERGER Patient would like something more to eat Patient thinks she needs more Lasix Physical Exam Vital signs: Vital Signs 01/03/18 16:00 01/03/18 20:00 01/03/18 22:51 Temperature 97.4 F L 97.7 F Pulse Rate 81 88 Respiratory Rate 17 18 Blood Pressure 133/67 157/81 H Pulse Oximetry 97 93 L 97 01/03/18 23:48 01/04/18 00:00 01/04/18 03:42 Temperature 97.9 F Pulse Rate 83 82 77 Respiratory Rate 17 Blood Pressure 137/78 Pulse Oximetry 95 01/04/18 04:00 01/04/18 08:00 01/04/18 10:45 Temperature 97.5 F L 97.9 F Pulse Rate 80 84 87 Respiratory Rate 18 17 16 Blood Pressure 152/79 H 152/75 H Pulse Oximetry 97 98 01/04/18 12:00 Temperature 97.4 F L Pulse Rate 84 Respiratory Rate 17 Blood Pressure 154/76 H Pulse Oximetry 95 Intake & Output 01/03/18 01/04/18 01/04/18 18:59 06:59 18:59 Intake Total 1300 / 1300 1200 / 1200 1100 / 1100 Output Total 600 / 600 650 / 650 Balance 700 / 700 550 / 550 1100 / 1100 Weight 208.5 kg Intake: IV 1200 / 1200 1200 / 1200 1100 / 1100 1/2 Normal Saline Inj 1,000 ML 1000 / 1000 1000 / 1000 1000 / 1000 @ 84 mls/hr IV.CONT .[id number] [facility] Rx#:[id number] Rocephin Inj 2,000 MG In NS Inj 100 / 100 100 ML @ 200 mls/hr IV.SIG Q24H [facility] Rx#:[id number] Flagyl 500 MG Inj 100 ML @ 100 200 / 200 100 / 100 100 / 100 mls/hr IV.SIG Q8H [facility] Rx#: [id number] Oral 100 / 100 Output: Urine 600 / 600 Gastric Drainage 650 / 650 Nasogastric Tube 650 / 650 Other: Date of Last Bowel Movement 12/30/17 - Urinary Catheter Management Indwelling Urethral Catheter Cath placed during this visit: no Assessment and Plan - Assessment (1) Gastritis Code(s): K29.70 - Gastritis, unspecified, without bleeding Status: Acute (2) Colitis Code(s): K52.9 - Noninfective gastroenteritis and colitis, unspecified Status : Acute (3) Paced cardiac rhythm Status: Acute (4) Morbid obesity Code(s): E66.01 - Morbid (severe) obesity due to excess calories Status: Chronic (5) Diabetes Code(s): E11.9 - Type 2 diabetes mellitus without complications Status: Chronic - Attending Attestation NOTE FOR SURGICAL ATTENDING, DR. FANTASMA BERGER I agree with above assessment and plan. The exam, history, and the medical decision-making described in the above note were completed with the assistance of the mid-level provider. I reviewed and agree with the findings presented. I attest that I had a [id number] encounter with the patient on the same day, and personally performed and documented my assessment and findings in the medical record. The following services were provided during this hospital visit: Chart data review, vital sign assessments/reviewing monitor data Review of consultations notes if present. Medication orders/review and/or management Ordering and/or reviewing lab tests Ordering and/or interpreting/reviewing x-rays and/or diagnostic studies Care of the patient and discussion of the patient with the care team Documentation time To help prompt me to consider important information that might be impacting today's encounter and assessment, Information from prior notes written by myself or my colleagues may have been "brought forward/copy and pasted" into today's note.
[2018-01-04] MEDS: Budesonide-Formoterol 160/4.5 MCG 6 GM Inhaler INH SCH ×2 (15:12→22:00)
--- NOTE | 2018-01-04 15:50 | P.PN ---
Subjective Interval history: alert nad Physical Exam Vital signs: Vital Signs 01/03/18 16:00 01/03/18 20:00 01/03/18 22:51 Temperature 97.4 F L 97.7 F Pulse Rate 81 88 Respiratory Rate 17 18 Blood Pressure 133/67 157/81 H Pulse Oximetry 97 93 L 97 01/03/18 23:48 01/04/18 00:00 01/04/18 03:42 Temperature 97.9 F Pulse Rate 83 82 77 Respiratory Rate 17 Blood Pressure 137/78 Pulse Oximetry 95 01/04/18 04:00 01/04/18 08:00 01/04/18 10:45 Temperature 97.5 F L 97.9 F Pulse Rate 80 84 87 Respiratory Rate 18 17 16 Blood Pressure 152/79 H 152/75 H Pulse Oximetry 97 98 01/04/18 12:00 01/04/18 15:00 Temperature 97.4 F L Pulse Rate 84 80 Respiratory Rate 17 Blood Pressure 154/76 H Pulse Oximetry 95 Intake & Output 01/03/18 01/04/18 01/04/18 18:59 06:59 18:59 Intake Total 1300 / 1300 1200 / 1200 1100 / 1100 Output Total 600 / 600 650 / 650 Balance 700 / 700 550 / 550 1100 / 1100 Weight 208.5 kg Intake: IV 1200 / 1200 1200 / 1200 1100 / 1100 1/2 Normal Saline Inj 1,000 ML 1000 / 1000 1000 / 1000 1000 / 1000 @ 84 mls/hr IV.CONT .[id number] [facility] Rx#:[id number] Rocephin Inj 2,000 MG In NS Inj 100 / 100 100 ML @ 200 mls/hr IV.SIG Q24H [facility] Rx#:[id number] Flagyl 500 MG Inj 100 ML @ 100 200 / 200 100 / 100 100 / 100 mls/hr IV.SIG Q8H [facility] Rx#: [id number] Oral 100 / 100 Output: Urine 600 / 600 Gastric Drainage 650 / 650 Nasogastric Tube 650 / 650 Other: Date of Last Bowel Movement 12/30/17 12/30/17 Narrative: Alert and awake Cardio: RRR Resp: CTAB Abd: obese; soft; non tender + edema in BLE - Urinary Catheter Management Indwelling Urethral Catheter Cath placed during this visit: yes Reason for continuing: Chronic Urinary Retention Insertion date: 12/28/17 Insertion time: 05:00 Results - Labs CBC & Chem 7: 01/02/18 10:31 01/01/18 05:18 Laboratory Results - last 24 hr 01/03/18 01/03/18 01/03/18 12:43 16:55 21:47 POC Glucose 135 H 132 H 130 H 01/04/18 01/04/18 01/04/18 04:29 08:40 12:53 POC Glucose 133 H 136 H 127 H - Imaging Impressions Abdomen X-Ray 01/04/18 06:00 CONCLUSION: Catheter overlying pelvis presumably within the bladder. Mild ileus. Assessment and Plan - Plan respiraty failure copd chf FELIPE PLAN O2 NEEDED BRONCHODILATOR THERAPY BIPAP INCREASE ACTIVITY
[2018-01-04] MEDS ORDERED: Magnesium Citrate Liq 300 ML Bottle PO ONE (16:00)
--- NOTE | 2018-01-04 16:17 | P.PN ---
Subjective Interval history: Seen in her bedroom in the present of relatives, stable at this time her NG tube has to be placed again to slow suction. patient followed by General Surgery discussed with MARGARET, the patient is having some volume retention, she is in status post EGD and Colonoscopy found Gastric ischemia only to greater curvature, await repeat EGD, will order Lasix for volume overload and decrease IV fluids. 01/03: Seen in her bedroom in the presence of Nurse she continue with nausea, no vomit, NG tube was clamped and the patient was not able to tolerate it, has rectal tube recommended by GI specialist to repeat PKU in am tomorrow, continue to try to clamp NG tube, and repeat KUB in am tomorrow. 01/04: Stable in her bedroom, seen in the presence of nurse, no nausea, vomit or diarrhea. Physical Exam Vital signs: Vital Signs 01/03/18 20:00 01/03/18 22:51 01/03/18 23:48 Temperature 97.7 F Pulse Rate 88 83 Respiratory Rate 18 Blood Pressure 157/81 H Pulse Oximetry 93 L 97 01/04/18 00:00 01/04/18 03:42 01/04/18 04:00 Temperature 97.9 F 97.5 F L Pulse Rate 82 77 80 Respiratory Rate 17 18 Blood Pressure 137/78 152/79 H Pulse Oximetry 95 97 01/04/18 08:00 01/04/18 10:45 01/04/18 12:00 Temperature 97.9 F 97.4 F L Pulse Rate 84 87 84 Respiratory Rate 17 16 17 Blood Pressure 152/75 H 154/76 H Pulse Oximetry 98 95 01/04/18 15:00 Temperature Pulse Rate 80 Respiratory Rate Blood Pressure Pulse Oximetry Intake & Output 01/03/18 01/04/18 01/04/18 18:59 06:59 18:59 Intake Total 1300 / 1300 1200 / 1200 1100 / 1100 Output Total 600 / 600 650 / 650 Balance 700 / 700 550 / 550 1100 / 1100 Weight 208.5 kg Intake: IV 1200 / 1200 1200 / 1200 1100 / 1100 1/2 Normal Saline Inj 1,000 ML 1000 / 1000 1000 / 1000 1000 / 1000 @ 84 mls/hr IV.CONT .[id number] [facility] Rx#:[id number] Rocephin Inj 2,000 MG In NS Inj 100 / 100 100 ML @ 200 mls/hr IV.SIG Q24H [facility] Rx#:[id number] Flagyl 500 MG Inj 100 ML @ 100 200 / 200 100 / 100 100 / 100 mls/hr IV.SIG Q8H [facility] Rx#: [id number] Oral 100 / 100 Output: Urine 600 / 600 Gastric Drainage 650 / 650 Nasogastric Tube 650 / 650 Other: Date of Last Bowel Movement 12/30/17 12/30/17 Narrative: GENERAL: Morbid obese patient in no acute distress. SKIN: Warm and dry. HEAD: Normocephalic. NG tube clamped EYES: No scleral icterus. erythema and edema on palpebral area, improving purulent secretion. NECK: Supple, trachea midline. No JVD or lymphadenopathy. CARDIOVASCULAR: Regular rate and rhythm without murmurs, gallops, or rubs. RESPIRATORY: Breath sounds equal bilaterally. No accessory muscle use. GASTROINTESTINAL: Abdomen soft, non-tender, nondistended. MUSCULOSKELETAL: No cyanosis, bilateral Edema mild. BACK: Nontender without obvious deformity. No CVA tenderness. - Urinary Catheter Management Indwelling Urethral Catheter Cath placed during this visit: yes Reason for continuing: Chronic Urinary Retention Insertion date: 12/28/17 Insertion time: 05:00 Results - Labs CBC & Chem 7: 01/02/18 10:31 01/01/18 05:18 Laboratory Results - last 24 hr 01/03/18 01/03/18 01/03/18 12:43 16:55 21:47 POC Glucose 135 H 132 H 130 H 01/04/18 01/04/18 01/04/18 04:29 08:40 12:53 POC Glucose 133 H 136 H 127 H - Imaging Impressions Abdomen X-Ray 01/04/18 06:00 CONCLUSION: Catheter overlying pelvis presumably within the bladder. Mild ileus. Assessment and Plan - Assessment (1) Chest pain Code(s): R07.9 - Chest pain, unspecified Status: Acute (2) Dyspnea Code(s): R06.00 - Dyspnea, unspecified Status: Acute (3) Paced cardiac rhythm Status: Acute - Plan 1. Acute hypoxemic and hypercapnic respiratory failure, diversity specialist following, status post Endotracheal intubation and Extubation, developed ischemic changes of the gastric wall and descending ischemic colitis in the right colon. Continues on antibiotics. stable. 2. Ischemic Colitis. s/p EGD, colonoscopy: ischemic changes of the gastric wall and ischemic colitis of the right colon. Rocephin and Flagyl. NG tube clamped. 3. COPD stable no exacerbation. 4. DM II continue sliding scale at this time at slow suction, blood glucose below 180 gr/dl 5. Hypertension mild uncontrol 6. Morbid obesity strongly recommended diet and exercise as outpatient. 7. Suspected FELIPE. 8. Congestive Heart failure EF 45-50%. concentric hypertrophy likely secondary to Hypertension, at this time discussed with general surgery recommended for Lasix one dose due to volume overload. today I do not think the patient is in Volume overload will get BNP and follow. 9. Conjunctivitis started on Cipro ophthalmic and artificial tears. 10. MARÍA ELENA improved GI prophylaxis with Protonix DVT prophylaxis with heparin subcutaneously. Code Status: full code. Discussed Condition With: patient and nurse Discharge Planning: once cleared by GI specialist and surgery. (1) Chest pain Qualifiers: Chest pain type: unspecified Qualified Code(s): R07.9 - Chest pain, unspecified (2) Dyspnea Qualifiers: Dyspnea type: shortness of breath Qualified Code(s): R06.02 - Shortness of breath; R06.00 - Dyspnea, unspecified; R06.01 - Orthopnea
[2018-01-05] MEDS: Hypromellose 0.3% Opth Gel 10 GM Bottle EACH EYE SCH ×7 (01:53→23:03)
[2018-01-05] MEDS: Sodium Chloride 0.45 % Inj 1,000 ML IV.CONT SCH ×4 (01:55→22:54)
[2018-01-05] MEDS: Insulin NovoLIN Regular Correctional Sugar Inj SQ SCH ×7 (01:55→23:03)
[2018-01-05] MEDS: Ciprofloxacin 0.3% Opth Drops 5 ML Bottle EACH EYE SCH ×6 (01:56→22:53)
[2018-01-05] MEDS: Polyethylene Glycol 3350 17 GM Packet PO SCH ×2 (08:14→22:53)
[2018-01-05] MEDS: Pantoprazole Inj 40 MG Vial IV.PUSH SCH ×2 (08:14→22:53)
[2018-01-05] MEDS: Gabapentin Liq 250 MG/5 ML UDC NG/OG SCH ×3 (08:14→18:56)
[2018-01-05] MEDS: Hydrocortisone 2.5% Cream 30 GM Tube TOPICAL SCH ×2 (08:17→22:53)
[2018-01-05] MEDS: Budesonide-Formoterol 160/4.5 MCG 6 GM Inhaler INH SCH ×2 (08:17→22:54)
--- NOTE | 2018-01-05 10:30 | P.PNGS ---
Subjective Patient reports: feels better, pain is less, tolerating liquids well Physical Exam Vital signs: Vital Signs 01/04/18 10:45 01/04/18 12:00 01/04/18 15:00 Temperature 97.4 F L Pulse Rate 87 84 80 Respiratory Rate 16 17 Blood Pressure 154/76 H Pulse Oximetry 95 01/04/18 16:00 01/04/18 20:00 01/04/18 20:16 Temperature 97.3 F L 97.5 F L Pulse Rate 86 80 79 Respiratory Rate 17 20 16 Blood Pressure 141/78 H 133/76 Pulse Oximetry 95 96 92 L 01/04/18 20:23 01/04/18 21:45 01/05/18 00:00 Temperature 97.2 F L Pulse Rate 81 83 Respiratory Rate 20 Blood Pressure 143/71 H Pulse Oximetry 96 95 01/05/18 04:00 01/05/18 04:04 01/05/18 07:00 Temperature 98 F Pulse Rate 80 83 78 Respiratory Rate 20 16 Blood Pressure 158/70 H Pulse Oximetry 96 01/05/18 08:00 01/05/18 08:57 Temperature 97.4 F L Pulse Rate 77 Respiratory Rate 17 Blood Pressure 143/75 H Pulse Oximetry 98 96 Intake & Output 01/04/18 01/05/18 01/05/18 18:59 06:59 18:59 Intake Total 2700 / 2700 1200 / 1200 Output Total 200 / 200 Balance 2500 / 2500 1200 / 1200 Weight 210 kg Intake: IV 1200 / 1200 1200 / 1200 1/2 Normal Saline Inj 1,000 ML 1000 / 1000 1000 / 1000 @ 84 mls/hr IV.CONT .[id number] ER[facility]ST[facility] Rx#:[id number] Rocephin Inj 2,000 MG In NS Inj 100 / 100 100 ML @ 200 mls/hr IV.SIG Q24H [facility] Rx#:[id number] Flagyl 500 MG Inj 100 ML @ 100 200 / 200 100 / 100 mls/hr IV.SIG Q8H ERNESTINA Rx#: [id number] Oral 1500 / 1500 Output: Gastric Drainage 200 / 200 Nasogastric Tube 200 / 200 Other: # Voids 6 Date of Last Bowel Movement 12/30/17 - Routine Abdominal Exam Present: soft, normoactive bowel sounds Comments: minimal tenderness, no R/G - Urinary Catheter Management Indwelling Urethral Catheter Cath placed during this visit: yes Reason for continuing: Chronic Urinary Retention Insertion date: 12/28/17 Insertion time: 05:00 Assessment and Plan - Assessment (1) Gastritis Code(s): K29.70 - Gastritis, unspecified, without bleeding Status: Acute Plan: 57 year old female s/p EGD and colonoscopy with colitis ???gastric ischemia only to greater curve -Mag citrate x 1 dose if can tolerated -GI ordered Relistor -Stable on RA -Attempt trial of clears again -Await repeat EGD -Defer fluid retention management to Primary Team (2) Colitis Code(s): K52.9 - Noninfective gastroenteritis and colitis, unspecified Status : Acute (3) Paced cardiac rhythm Status: Acute (4) Morbid obesity Code(s): E66.01 - Morbid (severe) obesity due to excess calories Status: Chronic (5) Diabetes Code(s): E11.9 - Type 2 diabetes mellitus without complications Status: Chronic - Plan DC NG and observe
--- NOTE | 2018-01-05 13:24 | XR ---
EXAM DATE: 01/05/2018 1:17 PM EDT AGE/SEX: 57 years / Female INDICATIONS: Distention. CLINICAL DATA: This is the patient's subsequent encounter. Patient reports that signs and symptoms h ave been present for 2 weeks and indicates a pain score of 0/10. MEDICAL/SURGICAL HISTORY: Transient ischemic attack. Diabetes. Hypercholesterolemia. Cardiovasc ular disease. CHF. Renal failure. Pacemaker. COMPARISON: [facility], ABDOMEN 1V KUB, 01/04/2018. . FINDINGS: Evaluation is very limited due to patient's body habitus. There is an NGT in the stomach. There is a [place] catheter in place. Overall improved bowel gas pattern with air and stool noted in the colon. CONCLUSION: 1. Technically limited exam due to body habitus. 2. Improving bowel gas pattern. Electronically signed by: Thanh Deras MD 01/05/2018 1:22 PM EDT
--- NOTE | 2018-01-05 15:14 | P.PN ---
Subjective Interval history: ALERT SITTING IN BED Physical Exam Vital signs: Vital Signs 01/04/18 16:00 01/04/18 20:00 01/04/18 20:16 Temperature 97.3 F L 97.5 F L Pulse Rate 86 80 79 Respiratory Rate 17 20 16 Blood Pressure 141/78 H 133/76 Pulse Oximetry 95 96 92 L 01/04/18 20:23 01/04/18 21:45 01/05/18 00:00 Temperature 97.2 F L Pulse Rate 81 83 Respiratory Rate 20 Blood Pressure 143/71 H Pulse Oximetry 96 95 01/05/18 04:00 01/05/18 04:04 01/05/18 07:00 Temperature 98 F Pulse Rate 80 83 78 Respiratory Rate 20 16 Blood Pressure 158/70 H Pulse Oximetry 96 01/05/18 08:00 01/05/18 08:57 01/05/18 09:00 Temperature 97.4 F L Pulse Rate 77 73 Respiratory Rate 17 Blood Pressure 143/75 H Pulse Oximetry 98 96 01/05/18 12:00 Temperature 97.6 F Pulse Rate 83 Respiratory Rate 21 Blood Pressure 172/84 H Pulse Oximetry 97 Intake & Output 01/04/18 01/05/18 01/05/18 18:59 06:59 18:59 Intake Total 2700 / 2700 1200 / 1200 100 / 100 Output Total 200 / 200 Balance 2500 / 2500 1200 / 1200 100 / 100 Weight 210 kg Intake: IV 1200 / 1200 1200 / 1200 100 / 100 1/2 Normal Saline Inj 1,000 ML 1000 / 1000 1000 / 1000 @ 84 mls/hr IV.CONT .[id number] ERNEST[facility] Rx#:[id number] Rocephin Inj 2,000 MG In NS Inj 100 / 100 100 ML @ 200 mls/hr IV.SIG Q24H ERNEST[facility] Rx#:[id number] Flagyl 500 MG Inj 100 ML @ 100 200 / 200 100 / 100 100 / 100 mls/hr IV.SIG Q8H ERNETSINA Rx#: [id number] Oral 1500 / 1500 Output: Gastric Drainage 200 / 200 Nasogastric Tube 200 / 200 Other: # Voids 6 Date of Last Bowel Movement 12/30/17 12/30/17 Narrative: Alert and awake Cardio: RRR Resp: CTAB Abd: obese; soft; non tender + edema in BLE - Urinary Catheter Management Indwelling Urethral Catheter Cath placed during this visit: yes Reason for continuing: Chronic Urinary Retention Insertion date: 12/28/17 Insertion time: 05:00 Results - Labs CBC & Chem 7: 01/02/18 10:31 01/01/18 05:18 Laboratory Results - last 24 hr 01/04/18 01/04/18 01/05/18 16:28 21:52 05:16 POC Glucose 150 H 155 H 144 H 01/05/18 01/05/18 08:10 12:58 POC Glucose 152 H 163 H - Imaging Impressions Abdomen X-Ray 01/05/18 00:00 CONCLUSION: 1. Technically limited exam due to body habitus. 2. Improving bowel gas pattern. Assessment and Plan - Plan respiraty failure copd chf FELIPE PLAN O2 NEEDED BRONCHODILATOR THERAPY BIPAP INCREASE ACTIVITY
--- NOTE | 2018-01-05 15:26 | P.PNPOD ---
Subjective Interval history: Patient resting comfortably with family present bedside. Physical Exam Vital signs: Vital Signs 01/04/18 16:00 01/04/18 20:00 01/04/18 20:16 Temperature 97.3 F L 97.5 F L Pulse Rate 86 80 79 Respiratory Rate 17 20 16 Blood Pressure 141/78 H 133/76 Pulse Oximetry 95 96 92 L 01/04/18 20:23 01/04/18 21:45 01/05/18 00:00 Temperature 97.2 F L Pulse Rate 81 83 Respiratory Rate 20 Blood Pressure 143/71 H Pulse Oximetry 96 95 01/05/18 04:00 01/05/18 04:04 01/05/18 07:00 Temperature 98 F Pulse Rate 80 83 78 Respiratory Rate 20 16 Blood Pressure 158/70 H Pulse Oximetry 96 01/05/18 08:00 01/05/18 08:57 01/05/18 09:00 Temperature 97.4 F L Pulse Rate 77 73 Respiratory Rate 17 Blood Pressure 143/75 H Pulse Oximetry 98 96 01/05/18 12:00 Temperature 97.6 F Pulse Rate 83 Respiratory Rate 21 Blood Pressure 172/84 H Pulse Oximetry 97 Intake & Output 01/04/18 01/05/18 01/05/18 18:59 06:59 18:59 Intake Total 2700 / 2700 1200 / 1200 100 / 100 Output Total 200 / 200 Balance 2500 / 2500 1200 / 1200 100 / 100 Weight 210 kg Intake: IV 1200 / 1200 1200 / 1200 100 / 100 1/2 Normal Saline Inj 1,000 ML 1000 / 1000 1000 / 1000 @ 84 mls/hr IV.CONT .[id number] ER[facility]ST[facility] Rx#:[id number] Rocephin Inj 2,000 MG In NS Inj 100 / 100 100 ML @ 200 mls/hr IV.SIG Q24H ERNEST[facility] Rx#:[id number] Flagyl 500 MG Inj 100 ML @ 100 200 / 200 100 / 100 100 / 100 mls/hr IV.SIG Q8H ERNESTINA Rx#: [id number] Oral 1500 / 1500 Output: Gastric Drainage 200 / 200 Nasogastric Tube 200 / 200 Other: # Voids 6 Date of Last Bowel Movement 12/30/17 12/30/17 Narrative: Right fourth and fifth digital eschars noted to distal aspect of digits. No acute signs of infection noted. Capillary refill time intact to digits of right foot. Diminished but palpable PT DP pulses. Significant bilateral edema noted to foot and ankle. No acute signs of infection to bilateral lower extremity. Medications and Allergies Active Medications: Active Medications Acetaminophen (Tylenol) 650 mg PO Q4H PRN PRN Reason: Headache, fever, pain 1-5 Last Admin: 12/30/17 15:47 Dose: 650 mg Hydrocodone Bitart/Acetaminophen (Hycet 325/7.5 Mg Liq) 10 ml NG/OG Q4H PRN PRN Reason: PAIN SCALE 7 TO 10 SEVERE Last Admin: 01/04/18 09:15 Dose: 10 ml Al Hydroxide/Mg Hydroxide (Milk Of Magnesia Liq) 30 ml PO Q12H PRN PRN Reason: Mild Constipation Last Admin: 12/22/17 09:23 Dose: 30 ml Albuterol (Duoneb Neb (Prn)) 1 ampul NEB Q2HR NEB PRN PRN Reason: SOB/ Dyspnea Last Admin: 01/05/18 08:55 Dose: 1 ampul Alprazolam (Xanax) 0.5 mg PO TID PRN PRN Reason: Anxiety Last Admin: 12/31/17 14:06 Dose: 0.5 mg Artificial Tears (Genteal Severe Dry Eye Relief 0.3% Opth Gel) 1 drops EACH EYE Q4H [facility] Last Admin: 01/05/18 08:18 Dose: 1 drops Bisacodyl (Dulcolax Supp) 10 mg RECTAL DAILY PRN PRN Reason: SEVERE CONSITIPATION Budesonide/Formoterol Fumarate (Symbicort 160/4.5 Mcg Inh) 2 puff INH BID [facility] Last Admin: 01/05/18 08:17 Dose: 2 puff Ciprofloxacin HCl (Ciloxan 0.3% Opth Drops) 1 drop EACH EYE Q4H [facility] Last Admin: 01/05/18 08:18 Dose: 1 drop Dextrose (D50w Vial) 50 ml IV.PUSH UNSCH PRN PRN Reason: PER HYPOGLYCEMIA PROTOCOL Diphenhydramine HCl (Benadryl Liq) 12.5 mg PO Q6H PRN PRN Reason: itching Gabapentin (Neurontin Liq) 600 mg NG/OG TID [facility] Last Admin: 01/05/18 08:14 Dose: 600 mg Glucagon (Glucagon Inj) 1 mg OTHER PRN PRN PRN Reason: for Hypoglycemia Protocol Guaifenesin (Robitussin Liq) 20 mg PO Q6H PRN PRN Reason: CHEST CONGESTION Hydrocortisone Acetate (Eldecort 2.5% Cream) 0 applicatio TOPICAL BID [facility] Last Admin: 01/05/18 08:17 Dose: 30 applicatio Ceftriaxone Sodium 2,000 mg/ (Sodium Chloride) 100 mls @ 200 mls/hr IV.SIG Q24H ERNESTINA Last Infusion: 01/05/18 02:53 Dose: Infused Metronidazole/Sodium Chloride (Flagyl 500 Mg Inj) 100 mls @ 100 mls/hr IV.SIG Q8H ERNESTINA Last Infusion: 01/05/18 13:03 Dose: Infused Sodium Chloride (1/2 Normal Saline Inj) 1,000 mls @ 84 mls/hr IV.CONT .[id number] [facility] Last Admin: 01/05/18 13:00 Dose: Not Given Potassium Chloride (Kcl 40 Meq Premix Inj) 40 meq in 100 mls @ 25 mls/hr IV.SIG UNSCH PRN PRN Reason: For Potassium 3.3 - 3.5 mEq/L Insulin Human Regular (Novolin R Correctional Sugar Inj) 0 units SQ Q4HR [facility]; Protocol Last Admin: 01/05/18 08:18 Dose: Not Given Lactulose (Lactulose Liq) 30 ml PO DAILY PRN PRN Reason: SEVERE CONSITIPATION Last Admin: 12/23/17 21:52 Dose: 30 ml Metoclopramide HCl (Reglan Inj) 10 mg IV.PUSH Q8H [facility]; Protocol Last Admin: 01/05/18 13:01 Dose: 10 mg Ondansetron HCl (Zofran Inj) 4 mg IV.PUSH Q6H PRN PRN Reason: NAUSEA Last Admin: 01/03/18 00:16 Dose: 4 mg Pantoprazole Sodium (Protonix Inj) 40 mg IV.PUSH Q12HR [facility] Last Admin: 01/05/18 08:14 Dose: 40 mg Linaclotide [Linzess (] 72 Mcg) 72 each PO DAILY [facility] Polyethylene Glycol (Miralax) 17 gm PO DAILY [facility] Last Admin: 01/05/18 08:14 Dose: 17 gm Sacubitril/Valsartan (Entresto 49 Mg/51 Mg) 1 tab PO BID [facility] Last Admin: 12/23/17 00:31 Dose: Not Given Sennosides (Senokot) 17.2 mg PO Q12H PRN PRN Reason: Moderate Constipation Sodium Chloride (Ns Flush) 2 ml IV.FLUSH UNSCH PRN PRN Reason: FLUSH AFTER USING IV ACCESS Last Admin: 12/28/17 21:14 Dose: 2 ml Allergies Allergy/AdvReac Type Severity Reaction Status Date / Time codeine Allergy Severe ITCH, Verified 12/25/17 23:09 starts to close throat sodium hypochlorite solution Allergy Severe Anaphylaxis Verified 12/25/17 23:09 amoxicillin Allergy Mild Diarrhea Verified 12/25/17 23:09 clavulanic acid Allergy Mild Diarrhea,na Verified 12/25/17 23:09 usea *MDRO Multi-Drug Resistant AdvReac Unknown Swelling Uncoded 12/20/17 08:09 Organism Home Medications Medication Instructions Recorded Confirmed Type albuterol sulfate [Ventolin HFA] 1 puff INHALATION Q4-6H PRN 12/20/17 12/20/17 History alprazolam [Xanax] 0.5 mg PO TID PRN 12/20/17 12/20/17 History amlodipine 5 mg PO DAILY 12/20/17 12/20/17 History apixaban [Eliquis] 5 mg PO BID 12/20/17 12/20/17 History furosemide [Lasix] 80 mg PO DAILY 12/20/17 12/20/17 History gabapentin 600 mg PO TID 12/20/17 12/20/17 History hydrocortisone 1 applic TOPICAL BID 12/20/17 12/20/17 History linaclotide [Linzess] 72 mcg PO DAILY 12/20/17 12/20/17 History pantoprazole [Protonix] 40 mg PO DAILY 12/20/17 12/20/17 History potassium chloride 10 meq PO BID 12/20/17 12/20/17 History promethazine 12.5 mg PO Q6H PRN 12/20/17 12/20/17 History sacubitril-valsartan [Entresto] 1 tab PO BID 12/20/17 12/20/17 History sulfamethoxazole-trimethoprim 1 tab PO BID 12/20/17 12/20/17 History [Bactrim DS] Results - Labs CBC & Chem 7: 01/02/18 10:31 01/01/18 05:18 Laboratory Results - last 24 hr 01/04/18 01/04/18 01/05/18 16:28 21:52 05:16 POC Glucose 150 H 155 H 144 H 01/05/18 01/05/18 08:10 12:58 POC Glucose 152 H 163 H - Imaging Impressions Abdomen X-Ray 01/05/18 00:00 CONCLUSION: 1. Technically limited exam due to body habitus. 2. Improving bowel gas pattern. Assessment and Plan - Assessment (1) Bullous eruption, localized Code(s): L13.9 - Bullous disorder, unspecified Status: Acute - Plan 57-year-old female with right fourth and fifth digital ulcerations Maceration noted interdigitally to fourth and fifth digit Recommend daily dressing changes with dry sterile gauze You to offload heels with Multi-Podus boots
--- NOTE | 2018-01-05 16:14 | P.PNGI ---
Subjective Interval history: Resting in the bed feels better today currently no nausea vomiting tolerating clear liquids NG tube has been removed Physical Exam Vital signs: Vital Signs 01/04/18 20:00 01/04/18 20:16 01/04/18 20:23 Temperature 97.5 F L Pulse Rate 80 79 81 Respiratory Rate 20 16 Blood Pressure 133/76 Pulse Oximetry 96 92 L 01/04/18 21:45 01/05/18 00:00 01/05/18 04:00 Temperature 97.2 F L 98 F Pulse Rate 83 80 Respiratory Rate 20 20 Blood Pressure 143/71 H 158/70 H Pulse Oximetry 96 95 96 01/05/18 04:04 01/05/18 07:00 01/05/18 08:00 Temperature 97.4 F L Pulse Rate 83 78 77 Respiratory Rate 16 17 Blood Pressure 143/75 H Pulse Oximetry 98 01/05/18 08:57 01/05/18 09:00 01/05/18 12:00 Temperature 97.6 F Pulse Rate 73 83 Respiratory Rate 21 Blood Pressure 172/84 H Pulse Oximetry 96 97 01/05/18 16:00 Temperature 98.1 F Pulse Rate 74 Respiratory Rate 22 Blood Pressure 163/78 H Pulse Oximetry 97 Intake & Output 01/04/18 01/05/18 01/05/18 18:59 06:59 18:59 Intake Total 2700 / 2700 1200 / 1200 100 / 100 Output Total 200 / 200 Balance 2500 / 2500 1200 / 1200 100 / 100 Weight 210 kg Intake: IV 1200 / 1200 1200 / 1200 100 / 100 1/2 Normal Saline Inj 1,000 ML 1000 / 1000 1000 / 1000 @ 84 mls/hr IV.CONT .[id number] [facility] Rx#:[id number] Rocephin Inj 2,000 MG In NS Inj 100 / 100 100 ML @ 200 mls/hr IV.SIG Q24H ER[facility] Rx#:[id number] Flagyl 500 MG Inj 100 ML @ 100 200 / 200 100 / 100 100 / 100 mls/hr IV.SIG Q8H ERNEST[facility] Rx#: [id number] Oral 1500 / 1500 Output: Gastric Drainage 200 / 200 Nasogastric Tube 200 / 200 Other: # Voids 6 Date of Last Bowel Movement 12/30/17 12/30/17 - Constitutional no acute distress, morbidly obese - Routine HEENT Exam Head: Present: normocephalic ENT: Present: mucous membranes moist (NG tube removed) - Routine Neck Exam Present: supple - Routine Respiratory Exam Present: accessory muscle use (Obese, no shortness of breath at rest) - Routine Cardiovascular Exam Present: S1, S2 - Routine Abdominal Exam Present: soft (Round, obese, no obvious distention) - Urinary Catheter Management Indwelling Urethral Catheter Cath placed during this visit: yes Reason for continuing: Chronic Urinary Retention Insertion date: 12/28/17 Insertion time: 05:00 Results - Labs CBC & Chem 7: 01/02/18 10:31 01/01/18 05:18 Laboratory Results - last 24 hr 01/04/18 01/04/18 01/05/18 16:28 21:52 05:16 POC Glucose 150 H 155 H 144 H 01/05/18 01/05/18 08:10 12:58 POC Glucose 152 H 163 H - Imaging Impressions Abdomen X-Ray 01/05/18 00:00 CONCLUSION: 1. Technically limited exam due to body habitus. 2. Improving bowel gas pattern. Assessment and Plan - Plan Assessment: - Nausea, vomiting, abdominal distention and pain, constipation- consult on (12/27 ) Today began having excessive burping and now has had multiple episodes of emesis today. Reportedly pt had coffee ground emesis, but the emesis she points to on her gown appears to be more brown in color. Pt is unsure when her last BM was, has had enemas, laxatives, and stool softeners and states has not had any significant stool. Does report passing flatus. States abdomen feels distended. Complaining of generalized abdominal pain, intermittent, described as dull. Was previously tolerating a regular diet but a few days ago had to be switched to liquids. KUB on 12/24 showed normal bowel gas pattern. Has never had EGD or colonoscopy. Denies ETOH, smoking, illicit drugs, NSAID use. Only previous abdominal surgery was C- section Of note, pt is on Elqiuis last dose was this morning CT abdomen and pelvis (12/27) Colonic distention with a large amount of stool as described, features most typical of a nonmechanical obstruction. Gastric distention without a perceptible mass. A stricture in the region of the gastric antrum with the in the differential. Duodenum is decompressed. There are scattered low-density lesions of the spleen, nonspecific but I believe they were present on the prior studies, just better seen today and probably benign. Decompressive colonoscopy (12/28) Diverticulosis sigmoid and descending colon. Ischemic colitis in the right colon, cecum. Cecum is not very dilated. Bowel overall looks viable. A rectal tube was left in place. Internal hemorrhoids. EGD (12/28) Esophagitis distal esophagus. Ischemic changes of gastric wall involving fundus and body- greater curvature -biopsy. Rest of the stomach appeared normal. Hiatal hernia (12/31) Pt remains in ICU. She is complaining of abdominal pain and nausea, denies any emesis. Abdomen is soft. KUB from this morning revealed no dilated bowel loops. According to RN, pt still having 600 mL of gastric output through NG overnight , will likely not tolerate TF at this high of output. (01/01) Pt transferred out of ICU to medical floor today. Complaining of abdominal pain. Also complaining of nausea but states she is hungry. NG remains to CRISTOPHER, RN noticed some BRB in suction tubing, appears to possibly be from trauma from the suctioning of the NG tube on the gastric wall. KUB --> Gaseous distention of bowel loops without obstruction (01/02) NG tube clamped overnight, KUB worse this morning --> Gaseous distention of multiple bowel loops throughout the abdomen in a pattern characteristic of a hypodynamic ileus. Rectal tube remains stable in position. The degree of gaseous distention may be slightly improved when compared to the prior. Reports of some BRB in NG tube yesterday, pts hgb has remained stable (01/03) Pt complaining of continued nausea, denies emesis and abdominal pain. NG to LIWS. Rectal tube to lau bag with small amount of stool. Repeat KUB from this AM --> Stable, nonspecific abdomen appearance Called Alexandra [place] Discussed clamping NG and trial clear liquids, if pt does not tolerate turn NG back to suction 01/04/2018 patient is beginning to show slow gradual improvement but still having nausea and was placed back on low intermittent suction over the past 24 hours after clear liquids. No obvious emesis. Rectal Lau has minimal drainage this a.m. Mild generalized abdominal pain, minimal changes to light palpation. KUB showed stable nonobstructive pattern on 01/03/2018, today's KUB did show some mild ileus. patient is interested in goals short-term and long- term which were discussed with her. This includes maintaining NG tube clamped and being able to tolerate liquids so the NG tube can be removed when patient is stable. Discussed rectal tube removal as long as patient is not having copious amounts of clear dark brown stool. Also discussed these goals with the nurse. Encourage patient to practice reflux precautions and have the head of the bed elevated at least 45 while eating and afterwards 1 hour. Order KUB for follow-up in a.m. to reevaluate any acute changes impatience ileus. 01/05/2018. Patient was able to tolerate clear liquids without any nausea vomiting NG tube was removed today. Patient appears to be feeling somewhat better. Visitors present. KUB repeated today which shows slow resolving improvement. Stool is seen in the colon and patient still has rectal tube with no output. Plan to remove rectal Lau today and increased dose of MiraLAX to twice daily. Ileus appears to be resolving Plan: Diet clear liquids Reglan Rectal Lau DC'd Increase MiraLAX dose to twice daily PPI, Zofran as needed, Cipro Flagyl, PPI Monitor labs and continue to monitor symptoms of any acute nausea or vomiting Further recommendations to follow Patient was seen per myself and Dr. Reinoso note was written on his behalf
--- NOTE | 2018-01-05 17:22 | P.PN ---
Subjective Interval history: Seen in her bedroom in the present of relatives, stable at this time her NG tube has to be placed again to slow suction. patient followed by General Surgery discussed with MARGARET, the patient is having some volume retention, she is in status post EGD and Colonoscopy found Gastric ischemia only to greater curvature, await repeat EGD, will order Lasix for volume overload and decrease IV fluids. 01/03: Seen in her bedroom in the presence of Nurse she continue with nausea, no vomit, NG tube was clamped and the patient was not able to tolerate it, has rectal tube recommended by GI specialist to repeat PKU in am tomorrow, continue to try to clamp NG tube, and repeat KUB in am tomorrow. 01/04: Stable in her bedroom, seen in the presence of nurse. 01/05: Seen in her bedroom, stable NG tube removed, rectal tube removed, patient feeling much better eating broth will add protein shake and continue to follow, much improved Conjunctivitis, seen by Podiatry specialist, rehab specialist and GI specialist. Physical Exam Vital signs: Vital Signs 01/04/18 20:00 01/04/18 20:16 01/04/18 20:23 Temperature 97.5 F L Pulse Rate 80 79 81 Respiratory Rate 20 16 Blood Pressure 133/76 Pulse Oximetry 96 92 L 01/04/18 21:45 01/05/18 00:00 01/05/18 04:00 Temperature 97.2 F L 98 F Pulse Rate 83 80 Respiratory Rate 20 20 Blood Pressure 143/71 H 158/70 H Pulse Oximetry 96 95 96 01/05/18 04:04 01/05/18 07:00 01/05/18 08:00 Temperature 97.4 F L Pulse Rate 83 78 77 Respiratory Rate 16 17 Blood Pressure 143/75 H Pulse Oximetry 98 01/05/18 08:57 01/05/18 09:00 01/05/18 12:00 Temperature 97.6 F Pulse Rate 73 83 Respiratory Rate 21 Blood Pressure 172/84 H Pulse Oximetry 96 97 01/05/18 13:00 01/05/18 16:00 Temperature 98.1 F Pulse Rate 73 74 Respiratory Rate 22 Blood Pressure 163/78 H Pulse Oximetry 97 Intake & Output 01/04/18 01/05/18 01/05/18 18:59 06:59 18:59 Intake Total 2700 / 2700 1200 / 1200 100 / 100 Output Total 200 / 200 Balance 2500 / 2500 1200 / 1200 100 / 100 Weight 210 kg Intake: IV 1200 / 1200 1200 / 1200 100 / 100 1/2 Normal Saline Inj 1,000 ML 1000 / 1000 1000 / 1000 @ 84 mls/hr IV.CONT .[id number] ERNESTINA Rx#:[id number] Rocephin Inj 2,000 MG In NS Inj 100 / 100 100 ML @ 200 mls/hr IV.SIG Q24H ERNESTINA Rx#:[id number] Flagyl 500 MG Inj 100 ML @ 100 200 / 200 100 / 100 100 / 100 mls/hr IV.SIG Q8H ERNESTINA Rx#: [id number] Oral 1500 / 1500 Output: Gastric Drainage 200 / 200 Nasogastric Tube 200 / 200 Other: # Voids 6 Date of Last Bowel Movement 12/30/17 12/30/17 Narrative: GENERAL: Morbid obese patient in no acute distress. SKIN: Warm and dry. HEAD: Normocephalic. EYES: No scleral icterus. erythema and edema on palpebral area, improving purulent secretion. NECK: Supple, trachea midline. No JVD or lymphadenopathy. CARDIOVASCULAR: Regular rate and rhythm without murmurs, gallops, or rubs. RESPIRATORY: Breath sounds equal bilaterally. No accessory muscle use. GASTROINTESTINAL: Abdomen soft, non-tender, nondistended. MUSCULOSKELETAL: No cyanosis, bilateral Edema mild. BACK: Nontender without obvious deformity. No CVA tenderness. - Urinary Catheter Management Indwelling Urethral Catheter Cath placed during this visit: yes Reason for continuing: Chronic Urinary Retention Insertion date: 12/28/17 Insertion time: 05:00 Results - Labs CBC & Chem 7: 01/02/18 10:31 01/01/18 05:18 Laboratory Results - last 24 hr 01/04/18 01/05/18 01/05/18 21:52 05:16 08:10 POC Glucose 155 H 144 H 152 H 01/05/18 12:58 POC Glucose 163 H - Imaging Impressions Abdomen X-Ray 01/05/18 00:00 CONCLUSION: 1. Technically limited exam due to body habitus. 2. Improving bowel gas pattern. Assessment and Plan - Assessment (1) Chest pain Code(s): R07.9 - Chest pain, unspecified Status: Acute (2) Dyspnea Code(s): R06.00 - Dyspnea, unspecified Status: Acute (3) Paced cardiac rhythm Status: Acute - Plan 1. Acute hypoxemic and hypercapnic respiratory failure, rehab specialist following, status post Endotracheal intubation and Extubation, developed ischemic changes of the gastric wall and descending ischemic colitis in the right colon. Continues on antibiotics. rehab specialist following. 2. Ischemic Colitis. s/p EGD, colonoscopy: ischemic changes of the gastric wall and ischemic colitis of the right colon. Rocephin and Flagyl. removed NG tube and Rectal tube, eating broth no complaint. improving condition. 3. COPD stable no exacerbation. 4. DM II continue sliding scale stable blood sugar below 180 gr/dl. 5. Hypertension Mild uncontrol. 6. Morbid obesity strongly recommended diet and exercise as outpatient. 7. Suspected FELIPE. 8. Congestive Heart failure EF 45-50%. concentric hypertrophy likely secondary to Hypertension, at this time discussed with general surgery recommended for Lasix one dose due to volume overload. not seen overloaded. will get BNP 9. Conjunctivitis started on Cipro ophthalmic and artificial tears. Improving. 10. MARÍA ELENA improved GI prophylaxis with Protonix DVT prophylaxis with heparin subcutaneously. Code Status: full code. Discussed Condition With: patient and nurse. Discharge Planning: once cleared by GI specialist and surgery. (1) Chest pain Qualifiers: Chest pain type: unspecified Qualified Code(s): R07.9 - Chest pain, unspecified (2) Dyspnea Qualifiers: Dyspnea type: shortness of breath Qualified Code(s): R06.02 - Shortness of breath; R06.00 - Dyspnea, unspecified; R06.01 - Orthopnea
[2018-01-06] MEDS: Ciprofloxacin 0.3% Opth Drops 5 ML Bottle EACH EYE SCH ×6 (00:45→20:02)
[2018-01-06] MEDS: Insulin NovoLIN Regular Correctional Sugar Inj SQ SCH ×6 (03:54→23:36)
[2018-01-06] MEDS: Hypromellose 0.3% Opth Gel 10 GM Bottle EACH EYE SCH ×6 (03:55→23:36)
[2018-01-06] MEDS: Gabapentin Liq 250 MG/5 ML UDC NG/OG SCH ×3 (08:24→18:39)
[2018-01-06] MEDS: Polyethylene Glycol 3350 17 GM Packet PO SCH ×2 (08:24→20:02)
[2018-01-06] MEDS: Pantoprazole Inj 40 MG Vial IV.PUSH SCH ×2 (08:25→20:02)
[2018-01-06] MEDS: Budesonide-Formoterol 160/4.5 MCG 6 GM Inhaler INH SCH ×2 (08:34→20:03)
[2018-01-06] MEDS: Hydrocortisone 2.5% Cream 30 GM Tube TOPICAL SCH ×2 (08:35→20:02)
--- NOTE | 2018-01-06 12:08 | P.PN ---
Subjective Interval history: Seen in her bedroom in the present of relatives, stable at this time her NG tube has to be placed again to slow suction. patient followed by General Surgery discussed with MARGARET, the patient is having some volume retention, she is in status post EGD and Colonoscopy found Gastric ischemia only to greater curvature, await repeat EGD, will order Lasix for volume overload and decrease IV fluids. 01/03: Seen in her bedroom in the presence of Nurse she continue with nausea, no vomit, NG tube was clamped and the patient was not able to tolerate it, has rectal tube recommended by GI specialist to repeat PKU in am tomorrow, continue to try to clamp NG tube, and repeat KUB in am tomorrow. 01/04: Stable in her bedroom, seen in the presence of nurse. 01/05: Seen in her bedroom, stable NG tube removed, rectal tube removed, patient feeling much better eating broth will add protein shake and continue to follow, much improved Conjunctivitis, seen by Podiatry specialist, adolescent specialist and GI specialist. 01/06: Patient with no complaint, eating broth today again and liquids with any complaint, improving in general she is asking for her diuretic will start low dose diuretics she states is not able to void without them, her renal function is been stable. no nausea, vomit or diarrhea. Physical Exam Vital signs: Vital Signs 01/05/18 13:00 01/05/18 16:00 01/05/18 17:38 Temperature 98.1 F Pulse Rate 73 74 Respiratory Rate 22 Blood Pressure 163/78 H Pulse Oximetry 97 97 01/05/18 19:51 01/05/18 20:00 01/06/18 00:00 Temperature 97.8 F 97.8 F Pulse Rate 80 79 74 Respiratory Rate 18 20 18 Blood Pressure 154/76 H 146/71 H Pulse Oximetry 96 99 01/06/18 04:00 01/06/18 08:00 01/06/18 08:49 Temperature 97.3 F L 98.6 F Pulse Rate 71 74 75 Respiratory Rate 18 17 16 Blood Pressure 159/75 H 153/73 H Pulse Oximetry 96 98 98 Intake & Output 01/05/18 01/06/18 01/06/18 18:59 06:59 18:59 Intake Total 1100 / 1100 300 / 300 1050 / 1050 Output Total 800 / 800 Balance 1100 / 1100 -500 / -500 1050 / 1050 Weight 211.7 kg Intake: IV 1100 / 1100 300 / 300 1050 / 1050 1/2 Normal Saline Inj 1,000 ML 1000 / 1000 1000 / 1000 @ 84 mls/hr IV.CONT .[id number] ERNEST[facility] Rx#:[id number] Rocephin Inj 2,000 MG In NS Inj 100 / 100 100 ML @ 200 mls/hr IV.SIG Q24H ERNEST[facility] Rx#:[id number] Flagyl 500 MG Inj 100 ML @ 100 100 / 100 200 / 200 50 / 50 mls/hr IV.SIG Q8H ERNESTINA Rx#: [id number] Output: Urine 800 / 800 Other: Date of Last Bowel Movement 12/30/17 12/30/17 # Incontinent Bowel Movements 2 Narrative: GENERAL: Morbid obese patient in no acute distress. SKIN: Warm and dry. HEAD: Normocephalic. EYES: No scleral icterus. erythema and edema on palpebral area, improving purulent secretion. NECK: Supple, trachea midline. No JVD or lymphadenopathy. CARDIOVASCULAR: Regular rate and rhythm without murmurs, gallops, or rubs. RESPIRATORY: Breath sounds equal bilaterally. No accessory muscle use. GASTROINTESTINAL: Abdomen soft, non-tender, nondistended. MUSCULOSKELETAL: No cyanosis, bilateral Edema mild. BACK: Nontender without obvious deformity. No CVA tenderness. - Urinary Catheter Management Indwelling Urethral Catheter Cath placed during this visit: yes Reason for continuing: Chronic Urinary Retention Insertion date: 12/28/17 Insertion time: 05:00 Results - Labs CBC & Chem 7: 01/02/18 10:31 01/01/18 05:18 Laboratory Results - last 24 hr 01/05/18 01/05/18 01/06/18 12:58 22:50 03:53 POC Glucose 163 H 176 H 157 H - Imaging Impressions Abdomen X-Ray 01/05/18 00:00 CONCLUSION: 1. Technically limited exam due to body habitus. 2. Improving bowel gas pattern. Assessment and Plan - Assessment (1) Chest pain Code(s): R07.9 - Chest pain, unspecified Status: Acute (2) Dyspnea Code(s): R06.00 - Dyspnea, unspecified Status: Acute (3) Paced cardiac rhythm Status: Acute - Plan 1. Acute hypoxemic and hypercapnic respiratory failure, adolescent specialist following, status post Endotracheal intubation and Extubation, developed ischemic changes of the gastric wall and descending ischemic colitis in the right colon. Continues on antibiotics. 2. Ischemic Colitis. s/p EGD, colonoscopy: ischemic changes of the gastric wall and ischemic colitis of the right colon. Rocephin and Flagyl. removed NG tube and Rectal tube, eating broth no complaint. improving condition. 3. COPD stable no exacerbation. 4. DM II continue sliding scale stable blood sugar below 180 gr/dl. 5. Hypertension Mild uncontrol. 6. Morbid obesity strongly recommended diet and exercise as outpatient. 7. Suspected FELIPE. 8. Congestive Heart failure EF 45-50%. concentric hypertrophy likely secondary to Hypertension, at this time discussed with general surgery recommended for Lasix one dose due to volume overload. not seen overloaded. will start low dose Furosemide and also will follow left arm swelling rule out DVT. 9. Conjunctivitis started on Cipro ophthalmic and artificial tears. Improving. 10. MARÍA ELENA improved GI prophylaxis with Protonix DVT prophylaxis with heparin subcutaneously. Code Status: Full code. Discussed Condition With: patient and nurse. Discharge Planning: once cleared by GI specialist and surgery. (1) Chest pain Qualifiers: Chest pain type: unspecified Qualified Code(s): R07.9 - Chest pain, unspecified (2) Dyspnea Qualifiers: Dyspnea type: shortness of breath Qualified Code(s): R06.02 - Shortness of breath; R06.00 - Dyspnea, unspecified; R06.01 - Orthopnea
[2018-01-06] MEDS: Sodium Chloride 0.45 % Inj 1,000 ML IV.CONT SCH ×2 (13:14→21:46)
[2018-01-06] MEDS: Furosemide 40 MG Tablet PO SCH (13:22)
--- NOTE | 2018-01-06 13:47 | P.PNGS ---
Subjective Patient reports: feels better, tolerating liquids well, flatus (Family at bedside) Physical Exam Vital signs: Vital Signs 01/05/18 16:00 01/05/18 17:38 01/05/18 19:51 Temperature 98.1 F Pulse Rate 74 80 Respiratory Rate 22 18 Blood Pressure 163/78 H Pulse Oximetry 97 97 01/05/18 20:00 01/06/18 00:00 01/06/18 04:00 Temperature 97.8 F 97.8 F 97.3 F L Pulse Rate 79 74 71 Respiratory Rate 20 18 18 Blood Pressure 154/76 H 146/71 H 159/75 H Pulse Oximetry 96 99 96 01/06/18 08:00 01/06/18 08:49 01/06/18 12:00 Temperature 98.6 F 97.5 F L Pulse Rate 74 75 77 Respiratory Rate 17 16 17 Blood Pressure 153/73 H 170/77 H Pulse Oximetry 98 98 96 Intake & Output 01/05/18 01/06/18 01/06/18 18:59 06:59 18:59 Intake Total 1100 / 1100 300 / 300 1100 / 1100 Output Total 800 / 800 Balance 1100 / 1100 -500 / -500 1100 / 1100 Weight 211.7 kg Intake: IV 1100 / 1100 300 / 300 1100 / 1100 1/2 Normal Saline Inj 1,000 ML 1000 / 1000 1000 / 1000 @ 84 mls/hr IV.CONT .[id number] ER[facility]ST[facility] Rx#:[id number] Rocephin Inj 2,000 MG In NS Inj 100 / 100 100 ML @ 200 mls/hr IV.SIG Q24H ERNEST[facility] Rx#:[id number] Flagyl 500 MG Inj 100 ML @ 100 100 / 100 200 / 200 100 / 100 mls/hr IV.SIG Q8H ERNESTINA Rx#: [id number] Output: Urine 800 / 800 Other: Date of Last Bowel Movement 12/30/17 12/30/17 # Incontinent Bowel Movements 2 Narrative: Patient lying in bed No apparent distress Abdomen soft Had NG pulled yesterday had rectal bag pulled yesterday Tolerating diet - Constitutional no acute distress - Routine HEENT Exam Head: Present: normocephalic - Routine Neurological Exam Present: alert, oriented X3 - Detailed Neurological Exam: Coma Scale Eye Opening: Spontaneous Verbal Response: Oriented Motor Response: Obey commands [place] Coma Scale Total: 15 - Routine Psychiatric Exam Present: normal affect - Additional findings Additional findings: ITS Impressions Toe X-Ray 12/20/17 00:00 CONCLUSION: Focal soft tissue swelling involving the fourth toe. The underlying bony structures are grossly intact. Abdomen/Pelvis CT 12/27/17 14:34 CONCLUSION: 1. Colonic distention with a large amount of stool as described, features most typical of a nonmechanical obstruction. 2. Gastric distention without a perceptible mass. A stricture in the region of the gastric antrum with the in the differential. Duodenum is decompressed. 3. There are scattered low-density lesions of the spleen, nonspecific but I believe they were present on the prior studies, just better seen today and probably benign. 4. There is infiltrate in the visualized right lung base. Venous Doppler Study 12/28/17 00:00 CONCLUSION: 1. Negative for deep venous thrombosis. Chest X-Ray 12/28/17 10:54 CONCLUSION: Low lung volumes with bibasilar consolidation likely relating to atelectasis. Temporal Bone CT 12/30/17 00:00 CONCLUSION: 1. Mild partial opacification of the middle ear bilaterally and mild partial opacification of the anterior mastoid air cells bilaterally. No evidence of focal bone erosion. Ossicles are intact. 2. Moderate severity sinusitis most prominent in the posterior right ethmoid sinus with air-fluid level seen in this region suggesting acute sinusitis. Abdomen X-Ray 01/05/18 00:00 CONCLUSION: 1. Technically limited exam due to body habitus. 2. Improving bowel gas pattern. - Urinary Catheter Management Indwelling Urethral Catheter Cath placed during this visit: yes Reason for continuing: Chronic Urinary Retention Insertion date: 12/28/17 Insertion time: 05:00 Assessment and Plan - Assessment (1) Gastritis Code(s): K29.70 - Gastritis, unspecified, without bleeding Status: Acute Plan: 57 year old female s/p EGD and colonoscopy with colitis ???gastric ischemia only to greater curve -Mag citrate x 1 dose if can tolerated -GI ordered Relistor -Stable on RA -Attempt trial of clears again -Await repeat EGD -Defer fluid retention management to Primary Team (2) Colitis Code(s): K52.9 - Noninfective gastroenteritis and colitis, unspecified Status : Acute (3) Paced cardiac rhythm Status: Acute (4) Morbid obesity Code(s): E66.01 - Morbid (severe) obesity due to excess calories Status: Chronic (5) Diabetes Code(s): E11.9 - Type 2 diabetes mellitus without complications Status: Chronic - Plan Patient recovering from gastritis and esophagitis and colitis Continue to advance diet and activities no surgical plans at this time Discharge Planning: None at this time
--- NOTE | 2018-01-06 15:28 | P.PNGI ---
Subjective Interval history: Patient is resting in the bed states large BM this past p.m. No acute nausea or vomiting no acute abdominal pain to light palpation abdomen soft, obese, Denies any nausea or vomiting and continues to tolerate clear liquids <Lolly Reyes - Last Filed: 01/06/18 15:24> Physical Exam Vital signs: Vital Signs 01/05/18 16:00 01/05/18 17:38 01/05/18 19:51 Temperature 98.1 F Pulse Rate 74 80 Respiratory Rate 22 18 Blood Pressure 163/78 H Pulse Oximetry 97 97 01/05/18 20:00 01/06/18 00:00 01/06/18 04:00 Temperature 97.8 F 97.8 F 97.3 F L Pulse Rate 79 74 71 Respiratory Rate 20 18 18 Blood Pressure 154/76 H 146/71 H 159/75 H Pulse Oximetry 96 99 96 01/06/18 08:00 01/06/18 08:49 01/06/18 12:00 Temperature 98.6 F 97.5 F L Pulse Rate 74 75 77 Respiratory Rate 17 16 17 Blood Pressure 153/73 H 170/77 H Pulse Oximetry 98 98 96 01/06/18 14:50 Temperature Pulse Rate 97 H Respiratory Rate 20 Blood Pressure Pulse Oximetry Intake & Output 01/05/18 01/06/18 01/06/18 18:59 06:59 18:59 Intake Total 1100 / 1100 300 / 300 1100 / 1100 Output Total 800 / 800 Balance 1100 / 1100 -500 / -500 1100 / 1100 Weight 211.7 kg Intake: IV 1100 / 1100 300 / 300 1100 / 1100 1/2 Normal Saline Inj 1,000 ML 1000 / 1000 1000 / 1000 @ 84 mls/hr IV.CONT .[id number] ER[facility] Rx#:[id number] Rocephin Inj 2,000 MG In NS Inj 100 / 100 100 ML @ 200 mls/hr IV.SIG Q24H [facility] Rx#:[id number] Flagyl 500 MG Inj 100 ML @ 100 100 / 100 200 / 200 100 / 100 mls/hr IV.SIG Q8H ER[facility]ST[facility] Rx#: [id number] Output: Urine 800 / 800 Other: Date of Last Bowel Movement 12/30/17 12/30/17 # Incontinent Bowel Movements 2 - Constitutional no acute distress, morbidly obese - Routine HEENT Exam Head: Present: normocephalic ENT: Present: mucous membranes moist - Routine Respiratory Exam Present: accessory muscle use (Currently receiving respiratory treatments nebulizers) - Routine Abdominal Exam Present: soft, normoactive bowel sounds (Soft) - Routine Neurological Exam Present: alert (Answer simple questions) - Urinary Catheter Management Indwelling Urethral Catheter Cath placed during this visit: yes Reason for continuing: Chronic Urinary Retention Insertion date: 12/28/17 Insertion time: 05:00 <Lolly Reyes - Last Filed: 01/06/18 15:24> Vital signs: Vital Signs 01/06/18 00:00 01/06/18 04:00 01/06/18 08:00 Temperature 97.8 F 97.3 F L 98.6 F Pulse Rate 74 71 74 Respiratory Rate 18 18 17 Blood Pressure 146/71 H 159/75 H 153/73 H Pulse Oximetry 99 96 98 01/06/18 08:49 01/06/18 12:00 01/06/18 14:50 Temperature 97.5 F L Pulse Rate 75 77 97 H Respiratory Rate 16 17 20 Blood Pressure 170/77 H Pulse Oximetry 98 96 01/06/18 16:00 01/06/18 20:22 Temperature 98.1 F Pulse Rate 83 83 Respiratory Rate 19 16 Blood Pressure 162/72 H Pulse Oximetry 97 93 L Intake & Output 01/06/18 01/06/18 01/07/18 06:59 18:59 06:59 Intake Total 300 / 300 1900 / 1900 Output Total 800 / 800 400 / 400 Balance -500 / -500 1500 / 1500 Weight 211.7 kg Intake: IV 300 / 300 1100 / 1100 1/2 Normal Saline Inj 1,000 ML 1000 / 1000 @ 84 mls/hr IV.CONT .[id number] [facility] Rx#:[id number] Rocephin Inj 2,000 MG In NS Inj 100 / 100 100 ML @ 200 mls/hr IV.SIG Q24H [facility] Rx#:[id number] Flagyl 500 MG Inj 100 ML @ 100 200 / 200 100 / 100 mls/hr IV.SIG Q8H [facility] Rx#: [id number] Oral 800 / 800 Output: Urine 800 / 800 400 / 400 Other: Date of Last Bowel Movement 12/30/17 # Incontinent Bowel Movements 2 - Urinary Catheter Management Indwelling Urethral Catheter Cath placed during this visit: no <Queenie Mcgovern - Last Filed: 01/06/18 20:41> Results - Labs CBC & Chem 7: 01/02/18 10:31 01/01/18 05:18 Laboratory Results - last 24 hr 01/05/18 01/06/18 01/06/18 22:50 03:53 12:06 POC Glucose 176 H 157 H 199 H B-Natriuretic Peptide 01/06/18 13:32 POC Glucose B-Natriuretic Peptide 191 H <Lolly Reyes - Last Filed: 01/06/18 15:24> - Labs CBC & Chem 7: 01/02/18 10:31 01/01/18 05:18 Laboratory Results - last 24 hr 01/05/18 01/06/18 01/06/18 22:50 03:53 12:06 POC Glucose 176 H 157 H 199 H B-Natriuretic Peptide 01/06/18 01/06/18 13:32 19:52 POC Glucose 217 H B-Natriuretic Peptide 191 H <Queenie Mcgovern - Last Filed: 01/06/18 20:41> Assessment and Plan - Plan Assessment: - Nausea, vomiting, abdominal distention and pain, constipation- consult on (12/27 ) Today began having excessive burping and now has had multiple episodes of emesis today. Reportedly pt had coffee ground emesis, but the emesis she points to on her gown appears to be more brown in color. Pt is unsure when her last BM was, has had enemas, laxatives, and stool softeners and states has not had any significant stool. Does report passing flatus. States abdomen feels distended. Complaining of generalized abdominal pain, intermittent, described as dull. Was previously tolerating a regular diet but a few days ago had to be switched to liquids. KUB on 12/24 showed normal bowel gas pattern. Has never had EGD or colonoscopy. Denies ETOH, smoking, illicit drugs, NSAID use. Only previous abdominal surgery was C- section Of note, pt is on Elqiuis last dose was this morning CT abdomen and pelvis (12/27) Colonic distention with a large amount of stool as described, features most typical of a nonmechanical obstruction. Gastric distention without a perceptible mass. A stricture in the region of the gastric antrum with the in the differential. Duodenum is decompressed. There are scattered low-density lesions of the spleen, nonspecific but I believe they were present on the prior studies, just better seen today and probably benign. Decompressive colonoscopy (12/28) Diverticulosis sigmoid and descending colon. Ischemic colitis in the right colon, cecum. Cecum is not very dilated. Bowel overall looks viable. A rectal tube was left in place. Internal hemorrhoids. EGD (12/28) Esophagitis distal esophagus. Ischemic changes of gastric wall involving fundus and body- greater curvature -biopsy. Rest of the stomach appeared normal. Hiatal hernia (12/31) Pt remains in ICU. She is complaining of abdominal pain and nausea, denies any emesis. Abdomen is soft. KUB from this morning revealed no dilated bowel loops. According to RN, pt still having 600 mL of gastric output through NG overnight , will likely not tolerate TF at this high of output. (01/01) Pt transferred out of ICU to medical floor today. Complaining of abdominal pain. Also complaining of nausea but states she is hungry. NG remains to CRISTOPHER, ADRIANO noticed some BRB in suction tubing, appears to possibly be from trauma from the suctioning of the NG tube on the gastric wall. KUB --> Gaseous distention of bowel loops without obstruction (01/02) NG tube clamped overnight, KUB worse this morning --> Gaseous distention of multiple bowel loops throughout the abdomen in a pattern characteristic of a hypodynamic ileus. Rectal tube remains stable in position. The degree of gaseous distention may be slightly improved when compared to the prior. Reports of some BRB in NG tube yesterday, pts hgb has remained stable (01/03) Pt complaining of continued nausea, denies emesis and abdominal pain. NG to LIWS. Rectal tube to lau bag with small amount of stool. Repeat KUB from this AM --> Stable, nonspecific abdomen appearance Called Alexandra [place] Discussed clamping NG and trial clear liquids, if pt does not tolerate turn NG back to suction 01/04/2018 patient is beginning to show slow gradual improvement but still having nausea and was placed back on low intermittent suction over the past 24 hours after clear liquids. No obvious emesis. Rectal Lau has minimal drainage this a.m. Mild generalized abdominal pain, minimal changes to light palpation. KUB showed stable nonobstructive pattern on 01/03/2018, today's KUB did show some mild ileus. patient is interested in goals short-term and long- term which were discussed with her. This includes maintaining NG tube clamped and being able to tolerate liquids so the NG tube can be removed when patient is stable. Discussed rectal tube removal as long as patient is not having copious amounts of clear dark brown stool. Also discussed these goals with the nurse. Encourage patient to practice reflux precautions and have the head of the bed elevated at least 45 while eating and afterwards 1 hour. Order KUB for follow-up in a.m. to reevaluate any acute changes impatience ileus. 01/05/2018. Patient was able to tolerate clear liquids without any nausea vomiting NG tube was removed today. Patient appears to be feeling somewhat better. Visitors present. KUB repeated today which shows slow resolving improvement. Stool is seen in the colon and patient still has rectal tube with no output. Plan to remove rectal Lau today and increased dose of MiraLAX to twice daily. Ileus appears to be resolving 01/06/2018 patient is tolerating clear liquids and continues to remain stable with NG tube out. Patient had large BM yesterday p.m. after rectal Lau was DC 'd. Continue to encourage bowel regimen for patient to be aware of at least every 2-3 days. Patient continues gradual improvement from ileus. Will recheck KUB in a.m. Plan: Diet clear liquids KUB in a.m. Reglan Rectal Lau DC'd MiraLAX twice daily PPI Patient was seen per myself and Dr. Mcgovern, note was written on his behalf <Lolly Reyes - Last Filed: 01/06/18 15:24> - Plan agree with above note and plan, seems to be improving as far as bowel movement , continue with bowel regimen and will check KUB periodically <Queenie Mcgovern - Last Filed: 01/06/18 20:41>
--- NOTE | 2018-01-06 16:11 | P.PN ---
Subjective Interval history: alert NAD Physical Exam Vital signs: Vital Signs 01/05/18 17:38 01/05/18 19:51 01/05/18 20:00 Temperature 97.8 F Pulse Rate 80 79 Respiratory Rate 18 20 Blood Pressure 154/76 H Pulse Oximetry 97 96 01/06/18 00:00 01/06/18 04:00 01/06/18 08:00 Temperature 97.8 F 97.3 F L 98.6 F Pulse Rate 74 71 74 Respiratory Rate 18 18 17 Blood Pressure 146/71 H 159/75 H 153/73 H Pulse Oximetry 99 96 98 01/06/18 08:49 01/06/18 12:00 01/06/18 14:50 Temperature 97.5 F L Pulse Rate 75 77 97 H Respiratory Rate 16 17 20 Blood Pressure 170/77 H Pulse Oximetry 98 96 Intake & Output 01/05/18 01/06/18 01/06/18 18:59 06:59 18:59 Intake Total 1100 / 1100 300 / 300 1100 / 1100 Output Total 800 / 800 Balance 1100 / 1100 -500 / -500 1100 / 1100 Weight 211.7 kg Intake: IV 1100 / 1100 300 / 300 1100 / 1100 1/2 Normal Saline Inj 1,000 ML 1000 / 1000 1000 / 1000 @ 84 mls/hr IV.CONT .[id number] [facility] Rx#:[id number] Rocephin Inj 2,000 MG In NS Inj 100 / 100 100 ML @ 200 mls/hr IV.SIG Q24H [facility] Rx#:[id number] Flagyl 500 MG Inj 100 ML @ 100 100 / 100 200 / 200 100 / 100 mls/hr IV.SIG Q8H [facility] Rx#: [id number] Output: Urine 800 / 800 Other: Date of Last Bowel Movement 12/30/17 12/30/17 # Incontinent Bowel Movements 2 Narrative: Patient lying in bed No apparent distress Abdomen soft Had NG pulled yesterday had rectal bag pulled yesterday Tolerating diet - Urinary Catheter Management Indwelling Urethral Catheter Cath placed during this visit: yes Reason for continuing: Chronic Urinary Retention Insertion date: 12/28/17 Insertion time: 05:00 Results - Labs CBC & Chem 7: 01/02/18 10:31 01/01/18 05:18 Laboratory Results - last 24 hr 01/05/18 01/06/18 01/06/18 22:50 03:53 12:06 POC Glucose 176 H 157 H 199 H B-Natriuretic Peptide 01/06/18 13:32 POC Glucose B-Natriuretic Peptide 191 H Assessment and Plan - Plan respiraty failure copd chf FELIPE MORBID OBESITY PLAN O2 NEEDED BRONCHODILATOR THERAPY BIPAP INCREASE ACTIVITY
--- NOTE | 2018-01-06 22:05 | US ---
EXAM DATE: 01/06/2018 10:02 PM EDT AGE/SEX: 57 years / Female INDICATIONS: Left arm swelling. CLINICAL DATA: This is the patient's initial encounter. Patient reports that signs and symptoms have been present for 1 day and indicates a pain score of 2/10. MEDICAL/SURGICAL HISTORY: Congestive heart failure. Diabetes. Chronic obstructive pulmonary d isease. A-fib. Hyperlipidemia. Hypertension. Hypothyroid. TIA. . Pacemaker. COMPARISON: No prior exams available for comparison. FINDINGS: There is intact in the subclavian, axillary, brachial, radial, ulnar veins. No flow seen in the cepha lic vein and the vein is noncompressible. Other: None. CONCLUSION: 1. Thrombosis of the superficial cephalic vein. No evidence of deep venous thrombosis. Electronically signed by: Jensen iGbson MD 01/06/2018 10:04 PM EDT
[2018-01-07] MEDS: Ciprofloxacin 0.3% Opth Drops 5 ML Bottle EACH EYE SCH ×6 (00:26→20:06)
[2018-01-07] MEDS: Hypromellose 0.3% Opth Gel 10 GM Bottle EACH EYE SCH ×5 (03:52→20:06)
[2018-01-07] MEDS: Insulin NovoLIN Regular Correctional Sugar Inj SQ SCH ×5 (03:52→21:49)
--- NOTE | 2018-01-07 08:37 | P.PN ---
Subjective Interval history: alert no sob slept well last night Physical Exam Vital signs: Vital Signs 01/06/18 08:49 01/06/18 12:00 01/06/18 14:50 Temperature 97.5 F L Pulse Rate 75 77 97 H Respiratory Rate 16 17 20 Blood Pressure 170/77 H Pulse Oximetry 98 96 01/06/18 16:00 01/06/18 20:00 01/06/18 20:22 Temperature 98.1 F 97.8 F Pulse Rate 83 82 83 Respiratory Rate 19 20 16 Blood Pressure 162/72 H 153/64 H Pulse Oximetry 97 94 L 93 L 01/07/18 00:00 01/07/18 00:05 01/07/18 04:00 Temperature 97.2 F L 97.6 F Pulse Rate 82 83 82 Respiratory Rate 18 18 Blood Pressure 132/68 144/67 H Pulse Oximetry 97 97 01/07/18 05:00 Temperature Pulse Rate 85 Respiratory Rate 16 Blood Pressure Pulse Oximetry Intake & Output 01/06/18 01/07/18 01/07/18 18:59 06:59 18:59 Intake Total 1900 / 1900 940 / 940 5750 / 5750 Output Total 400 / 400 500 / 500 Balance 1500 / 1500 440 / 440 5750 / 5750 Weight 212.9 kg Intake: IV 1100 / 1100 700 / 700 5750 / 5750 1/2 Normal Saline Inj 1,000 ML 1000 / 1000 600 / 600 @ 84 mls/hr IV.CONT .[id number] [facility] Rx#:[id number] Flagyl 500 MG Inj 100 ML @ 100 100 / 100 100 / 100 mls/hr IV.SIG Q8H [facility] Rx#: [id number] Oral 800 / 800 240 / 240 Output: Urine 400 / 400 500 / 500 Other: # Voids 1 Date of Last Bowel Movement 12/30/17 # Incontinent Bowel Movements 1 Narrative: Patient lying in bed No apparent distress Abdomen soft no phlebitis - Urinary Catheter Management Indwelling Urethral Catheter Cath placed during this visit: yes Reason for continuing: Chronic Urinary Retention Insertion date: 12/28/17 Insertion time: 05:00 Results - Labs CBC & Chem 7: 01/02/18 10:31 01/01/18 05:18 Laboratory Results - last 24 hr 01/06/18 01/06/18 01/06/18 12:06 13:32 19:52 POC Glucose 199 H 217 H B-Natriuretic Peptide 191 H 01/06/18 01/07/18 23:34 03:51 POC Glucose 163 H 150 H B-Natriuretic Peptide - Imaging Impressions Venous Doppler Study 01/06/18 00:00 CONCLUSION: 1. Thrombosis of the superficial cephalic vein. No evidence of deep venous thrombosis. Assessment and Plan - Plan respiraty failure copd chf FELIPE MORBID OBESITY PLAN O2 NEEDED BRONCHODILATOR THERAPY BIPAP INCREASE ACTIVITY
--- NOTE | 2018-01-07 08:49 | P.PNGS ---
Subjective Patient reports: flatus, bowel movement Interval history: DAILY PROGRESS NOTE FOR SURGICAL ATTENDING, DR. FANTASMA BERGER Physical Exam Vital signs: Vital Signs 01/06/18 08:49 01/06/18 12:00 01/06/18 14:50 Temperature 97.5 F L Pulse Rate 75 77 97 H Respiratory Rate 16 17 20 Blood Pressure 170/77 H Pulse Oximetry 98 96 01/06/18 16:00 01/06/18 20:00 01/06/18 20:22 Temperature 98.1 F 97.8 F Pulse Rate 83 82 83 Respiratory Rate 19 20 16 Blood Pressure 162/72 H 153/64 H Pulse Oximetry 97 94 L 93 L 01/07/18 00:00 01/07/18 00:05 01/07/18 04:00 Temperature 97.2 F L 97.6 F Pulse Rate 82 83 82 Respiratory Rate 18 18 Blood Pressure 132/68 144/67 H Pulse Oximetry 97 97 01/07/18 05:00 Temperature Pulse Rate 85 Respiratory Rate 16 Blood Pressure Pulse Oximetry Intake & Output 01/06/18 01/07/18 01/07/18 18:59 06:59 18:59 Intake Total 1900 / 1900 940 / 940 5750 / 5750 Output Total 400 / 400 500 / 500 Balance 1500 / 1500 440 / 440 5750 / 5750 Weight 212.9 kg Intake: IV 1100 / 1100 700 / 700 5750 / 5750 1/2 Normal Saline Inj 1,000 ML 1000 / 1000 600 / 600 @ 84 mls/hr IV.CONT .[id number] [facility] Rx#:[id number] Flagyl 500 MG Inj 100 ML @ 100 100 / 100 100 / 100 mls/hr IV.SIG Q8H [facility] Rx#: [id number] Oral 800 / 800 240 / 240 Output: Urine 400 / 400 500 / 500 Other: # Voids 1 Date of Last Bowel Movement 12/30/17 # Incontinent Bowel Movements 1 Narrative: Alert abdomen soft Patient reports bowel movement - Urinary Catheter Management Indwelling Urethral Catheter Cath placed during this visit: yes Reason for continuing: Chronic Urinary Retention Insertion date: 12/28/17 Insertion time: 05:00 Assessment and Plan - Assessment (1) Gastritis Code(s): K29.70 - Gastritis, unspecified, without bleeding Status: Acute Plan: 57 year old female s/p EGD and colonoscopy with colitis ???gastric ischemia only to greater curve -Overall patient improved Tolerating diet Having bowel activity General surgery will sign off (2) Colitis Code(s): K52.9 - Noninfective gastroenteritis and colitis, unspecified Status : Acute (3) Paced cardiac rhythm Status: Acute (4) Morbid obesity Code(s): E66.01 - Morbid (severe) obesity due to excess calories Status: Chronic (5) Diabetes Code(s): E11.9 - Type 2 diabetes mellitus without complications Status: Chronic - Plan Patient recovering from gastritis and esophagitis and colitis Continue to advance diet and activities no surgical plans at this time General surgery will sign off NOTE FOR SURGICAL ATTENDING, DR. FANTASMA BERGER I attest that I had a [id number] encounter with the patient on the same day, and personally performed and documented my assessment and findings in the medical record. The following services were provided during this hospital visit: Chart data review, vital sign assessments/reviewing monitor data Review of consultations notes if present. Medication orders/review and/or management Ordering and/or reviewing lab tests Ordering and/or interpreting/reviewing x-rays and/or diagnostic studies Care of the patient and discussion of the patient with the care team Documentation time To help prompt me to consider important information that might be impacting today's encounter and assessment, Information from prior notes written by myself or my colleagues may have been "brought forward/copy and pasted" into today's note. - Attending Attestation NOTE FOR SURGICAL ATTENDING, DR. FANTASMA BERGER I attest that I had a [id number] encounter with the patient on the same day, and personally performed and documented my assessment and findings in the medical record. The following services were provided during this hospital visit: Chart data review, vital sign assessments/reviewing monitor data Review of consultations notes if present. Medication orders/review and/or management Ordering and/or reviewing lab tests Ordering and/or interpreting/reviewing x-rays and/or diagnostic studies Care of the patient and discussion of the patient with the care team Documentation time To help prompt me to consider important information that might be impacting today's encounter and assessment, Information from prior notes written by myself or my colleagues may have been "brought forward/copy and pasted" into today's note.
[2018-01-07] MEDS: Gabapentin Liq 250 MG/5 ML UDC NG/OG SCH ×3 (09:01→20:08)
[2018-01-07] MEDS: Furosemide 40 MG Tablet PO SCH (09:02)
[2018-01-07] MEDS: Hydrocortisone 2.5% Cream 30 GM Tube TOPICAL SCH ×2 (09:03→20:08)
[2018-01-07] MEDS: Budesonide-Formoterol 160/4.5 MCG 6 GM Inhaler INH SCH ×2 (09:03→20:09)
[2018-01-07] MEDS: Polyethylene Glycol 3350 17 GM Packet PO SCH ×2 (09:05→20:08)
--- NOTE | 2018-01-07 10:00 | XR ---
EXAM DATE: 01/07/2018 9:53 AM EDT AGE/SEX: 57 years / Female INDICATIONS: Ileus. CLINICAL DATA: This is the patient's initial encounter. Patient reports that signs and symptoms have been present for 2 weeks and indicates a pain score of Nonresponsive. MEDICAL/SURGICAL HISTORY: Hypercholesterolemia. Cardiovascular disease. Congestive heart fail ure. TIA, Diabetes, renal failure Pacemaker. COMPARISON: [facility], ABDOMEN 1V KUB, 01/05/2018. . FINDINGS: 4 supine frontal views of the abdomen demonstrate gaseous distention of the stomach with otherwise m ild distention of small bowel and colon. No organomegaly is present. No nasogastric tube is visualize d. Bones demonstrate no acute finding. CONCLUSION: Examination quality less than optimal secondary to body habitus. There is gaseous distention of the s tomach and mild distention of the small bowel. However, there are no features to definitively indicat e obstruction. Although nonspecific, the findings could be related to mild ileus. Electronically signed by: Chuckie Rich MD 01/07/2018 9:59 AM EDT
--- NOTE | 2018-01-07 10:15 | P.PN ---
Subjective Interval history: Seen in her bedroom in the present of relatives, stable at this time her NG tube has to be placed again to slow suction. patient followed by General Surgery discussed with MARGARET, the patient is having some volume retention, she is in status post EGD and Colonoscopy found Gastric ischemia only to greater curvature, await repeat EGD, will order Lasix for volume overload and decrease IV fluids. 01/03: Seen in her bedroom in the presence of Nurse she continue with nausea, no vomit, NG tube was clamped and the patient was not able to tolerate it, has rectal tube recommended by GI specialist to repeat PKU in am tomorrow, continue to try to clamp NG tube, and repeat KUB in am tomorrow. 01/04: Stable in her bedroom, seen in the presence of nurse. 01/05: Seen in her bedroom, stable NG tube removed, rectal tube removed, patient feeling much better eating broth will add protein shake and continue to follow, much improved Conjunctivitis, seen by Podiatry specialist, channel marketing specialist and GI specialist. 01/06: Patient with no complaint, eating broth today again and liquids with any complaint, improving in general she is asking for her diuretic will start low dose diuretics she states is not able to void without them, her renal function is been stable. 01/07: Stable in her bedroom, suggested Gastroparesis by GI specialist, she developed Nausea, no vomit, giving Reglan by GI specialist, MiraLAX twice a day. and PPIs. afebrile. GI signed off. Physical Exam Vital signs: Vital Signs 01/06/18 12:00 01/06/18 14:50 01/06/18 16:00 Temperature 97.5 F L 98.1 F Pulse Rate 77 97 H 83 Respiratory Rate 17 20 19 Blood Pressure 170/77 H 162/72 H Pulse Oximetry 96 97 01/06/18 20:00 01/06/18 20:22 01/07/18 00:00 Temperature 97.8 F 97.2 F L Pulse Rate 82 83 82 Respiratory Rate 20 16 18 Blood Pressure 153/64 H 132/68 Pulse Oximetry 94 L 93 L 97 01/07/18 00:05 01/07/18 04:00 01/07/18 05:00 Temperature 97.6 F Pulse Rate 83 82 85 Respiratory Rate 18 16 Blood Pressure 144/67 H Pulse Oximetry 97 01/07/18 08:00 Temperature 97.5 F L Pulse Rate 77 Respiratory Rate 17 Blood Pressure 154/73 H Pulse Oximetry 98 Intake & Output 01/06/18 01/07/18 01/07/18 18:59 06:59 18:59 Intake Total 1900 / 1900 940 / 940 5750 / 5750 Output Total 400 / 400 500 / 500 Balance 1500 / 1500 440 / 440 5750 / 5750 Weight 212.9 kg Intake: IV 1100 / 1100 700 / 700 5750 / 5750 1/2 Normal Saline Inj 1,000 ML 1000 / 1000 600 / 600 @ 84 mls/hr IV.CONT .[id number] ERNESTINA Rx#:[id number] Flagyl 500 MG Inj 100 ML @ 100 100 / 100 100 / 100 mls/hr IV.SIG Q8H ERNESTINA Rx#: [id number] Oral 800 / 800 240 / 240 Output: Urine 400 / 400 500 / 500 Other: # Voids 1 Date of Last Bowel Movement 12/30/17 # Incontinent Bowel Movements 1 Narrative: GENERAL: Morbid obese patient in no acute distress. SKIN: Warm and dry. HEAD: Normocephalic. EYES: No scleral icterus. erythema and edema on palpebral area, improving purulent secretion. NECK: Supple, trachea midline. No JVD or lymphadenopathy. CARDIOVASCULAR: Regular rate and rhythm without murmurs, gallops, or rubs. RESPIRATORY: Breath sounds equal bilaterally. No accessory muscle use. GASTROINTESTINAL: Abdomen soft, non-tender, nondistended. MUSCULOSKELETAL: No cyanosis, Pedal edema. BACK: Nontender without obvious deformity. No CVA tenderness. - Urinary Catheter Management Indwelling Urethral Catheter Cath placed during this visit: yes Reason for continuing: Chronic Urinary Retention Insertion date: 12/28/17 Insertion time: 05:00 Results - Labs CBC & Chem 7: 01/02/18 10:31 01/01/18 05:18 Laboratory Results - last 24 hr 01/06/18 01/06/18 01/06/18 12:06 13:32 19:52 POC Glucose 199 H 217 H B-Natriuretic Peptide 191 H 01/06/18 01/07/18 23:34 03:51 POC Glucose 163 H 150 H B-Natriuretic Peptide - Imaging Impressions Venous Doppler Study 01/06/18 00:00 CONCLUSION: 1. Thrombosis of the superficial cephalic vein. No evidence of deep venous thrombosis. Abdomen X-Ray 01/07/18 08:00 CONCLUSION: Examination quality less than optimal secondary to body habitus. There is gaseous distention of the stomach and mild distention of the small bowel. However, there are no features to definitively indicate obstruction. Although nonspecific, the findings could be related to mild ileus. Assessment and Plan - Assessment (1) Chest pain Code(s): R07.9 - Chest pain, unspecified Status: Acute (2) Dyspnea Code(s): R06.00 - Dyspnea, unspecified Status: Acute (3) Paced cardiac rhythm Status: Acute - Plan 1. Acute hypoxemic and hypercapnic respiratory failure, channel marketing specialist following, status post Endotracheal intubation and Extubation, developed ischemic changes of the gastric wall and descending ischemic colitis in the right colon. Continues on antibiotics. 2. Ischemic Colitis. s/p EGD, colonoscopy: ischemic changes of the gastric wall and ischemic colitis of the right colon. Rocephin and Flagyl. removed NG tube and Rectal tube, today having some Nausea but no vomit, some component of Gastroparesis as per GI added Reglan and MiraLAX. 3. COPD stable no exacerbation. 4. DM II continue sliding scale stable blood sugar below 180 gr/dl. 5. Hypertension Mild uncontrol. 6. Morbid obesity strongly recommended diet and exercise as outpatient. 7. Suspected FELIPE. 8. Congestive Heart failure EF 45-50%. concentric hypertrophy likely secondary to Hypertension, at this time discussed with general surgery recommended for Lasix one dose due to volume overload. not seen overloaded. will start low dose Furosemide and also will follow left arm swelling rule out DVT. 9. Conjunctivitis started on Cipro ophthalmic and artificial tears. Improving. 10. MARÍA ELENA improved GI prophylaxis with Protonix DVT prophylaxis with heparin subcutaneously. Code Status: Full Code Discussed Condition With: patient and nurse in the room. Discharge Planning: once cleared by GI specialist and surgery. (1) Chest pain Qualifiers: Chest pain type: unspecified Qualified Code(s): R07.9 - Chest pain, unspecified (2) Dyspnea Qualifiers: Dyspnea type: shortness of breath Qualified Code(s): R06.02 - Shortness of breath; R06.00 - Dyspnea, unspecified; R06.01 - Orthopnea
[2018-01-07] MEDS: Pantoprazole Inj 40 MG Vial IV.PUSH SCH ×2 (10:56→20:07)
[2018-01-07] MEDS: Sodium Chloride 0.45 % Inj 1,000 ML IV.CONT SCH (10:57)
--- NOTE | 2018-01-07 11:36 | P.PNPAL ---
Supportive visit with Ms. Mace. She is currently lying in bed, nurse in providing care, appears comfortable in no distress. Verbalizes she is feeling well. Denies any questions or concerns from the weekend. States she is happy to have the suction tube removed from the nose and rectal tube discontinued. Appears to be in better spirits, more comfortable. Ms. Mace tells me she was able to speak with her family over the weekend regarding health care surrogate and [facility] living will. She has decided to appoint her long-time significant other Inder Ca as primary HCS and her brother, Meir Mace as alternate. Confirms this a few times verbally. Meir lives in [place] and will be coming to visit on Sunday. Ms. Mace wishes to wait to fill out any paperwork until he is present. All family is working together. Ms. Mace is appreciative of ongoing palliative care visits and additional support. Will continue conversations regarding goals of medical treatment and assistance with completion of advance directives. Palliative care will continue to follow throughout hospitalization.
--- NOTE | 2018-01-07 20:50 | P.PNGI ---
Subjective Interval history: Patient laying comfortably in bed although he feels nauseated and does not feel he had a good day today denies any vomiting denies any pain he did have a bowel movement Physical Exam Vital signs: Vital Signs 01/07/18 00:00 01/07/18 00:05 01/07/18 04:00 Temperature 97.2 F L 97.6 F Pulse Rate 82 83 82 Respiratory Rate 18 18 Blood Pressure 132/68 144/67 H Pulse Oximetry 97 97 01/07/18 05:00 01/07/18 08:00 01/07/18 12:00 Temperature 97.5 F L 98.0 F Pulse Rate 85 77 80 Respiratory Rate 16 17 18 Blood Pressure 154/73 H 110/61 Pulse Oximetry 98 97 01/07/18 12:23 01/07/18 16:00 Temperature 98.1 F Pulse Rate 82 86 Respiratory Rate 12 17 Blood Pressure 131/61 Pulse Oximetry 94 L 95 Intake & Output 01/07/18 01/07/18 01/08/18 06:59 18:59 06:59 Intake Total 940 / 940 7190 / 7190 Output Total 500 / 500 Balance 440 / 440 7190 / 7190 Weight 212.9 kg Intake: IV 700 / 700 6350 / 6350 1/2 Normal Saline Inj 1,000 ML 600 / 600 400 / 400 @ 84 mls/hr IV.CONT .[id number] ERNESTINA Rx#:[id number] Flagyl 500 MG Inj 100 ML @ 100 100 / 100 200 / 200 mls/hr IV.SIG Q8H ERNESTINA Rx#: [id number] Oral 240 / 240 840 / 840 Output: Urine 500 / 500 Other: # Voids 1 Date of Last Bowel Movement 01/07/18 # Incontinent Bowel Movements 1 - Constitutional no acute distress - Routine HEENT Exam Head: Present: normocephalic Eye: Present: EOMI - Routine Neck Exam Present: supple - Routine Respiratory Exam Present: CTA bilaterally - Routine Cardiovascular Exam Present: S1, S2 - Routine Abdominal Exam Present: soft. Absent: tenderness, distended - Routine Skin Exam Present: dry, warm - Routine Neurological Exam Present: alert - Urinary Catheter Management Indwelling Urethral Catheter Cath placed during this visit: yes Reason for continuing: Chronic Urinary Retention Insertion date: 12/28/17 Insertion time: 05:00 Results - Labs CBC & Chem 7: 01/02/18 10:31 01/01/18 05:18 Laboratory Results - last 24 hr 01/06/18 01/07/18 01/07/18 23:34 03:51 16:06 POC Glucose 163 H 150 H 160 H - Imaging Impressions Venous Doppler Study 01/06/18 00:00 CONCLUSION: 1. Thrombosis of the superficial cephalic vein. No evidence of deep venous thrombosis. Abdomen X-Ray 01/07/18 08:00 CONCLUSION: Examination quality less than optimal secondary to body habitus. There is gaseous distention of the stomach and mild distention of the small bowel. However, there are no features to definitively indicate obstruction. Although nonspecific, the findings could be related to mild ileus. Assessment and Plan - Plan - Nausea, vomiting, abdominal distention and pain, constipation- consult on (12/27 ) Today began having excessive burping and now has had multiple episodes of emesis today. Reportedly pt had coffee ground emesis, but the emesis she points to on her gown appears to be more brown in color. Pt is unsure when her last BM was, has had enemas, laxatives, and stool softeners and states has not had any significant stool. Does report passing flatus. States abdomen feels distended. Complaining of generalized abdominal pain, intermittent, described as dull. Was previously tolerating a regular diet but a few days ago had to be switched to liquids. KUB on 12/24 showed normal bowel gas pattern. Has never had EGD or colonoscopy. Denies ETOH, smoking, illicit drugs, NSAID use. Only previous abdominal surgery was C- section Of note, pt is on Elqiuis last dose was this morning CT abdomen and pelvis (12/27) Colonic distention with a large amount of stool as described, features most typical of a nonmechanical obstruction. Gastric distention without a perceptible mass. A stricture in the region of the gastric antrum with the in the differential. Duodenum is decompressed. There are scattered low-density lesions of the spleen, nonspecific but I believe they were present on the prior studies, just better seen today and probably benign. Decompressive colonoscopy (12/28) Diverticulosis sigmoid and descending colon. Ischemic colitis in the right colon, cecum. Cecum is not very dilated. Bowel overall looks viable. A rectal tube was left in place. Internal hemorrhoids. EGD (12/28) Esophagitis distal esophagus. Ischemic changes of gastric wall involving fundus and body- greater curvature -biopsy. Rest of the stomach appeared normal. Hiatal hernia (12/31) Pt remains in ICU. She is complaining of abdominal pain and nausea, denies any emesis. Abdomen is soft. KUB from this morning revealed no dilated bowel loops. According to RN, pt still having 600 mL of gastric output through NG overnight , will likely not tolerate TF at this high of output. (01/01) Pt transferred out of ICU to medical floor today. Complaining of abdominal pain. Also complaining of nausea but states she is hungry. NG remains to CRISTOPHER, RN noticed some BRB in suction tubing, appears to possibly be from trauma from the suctioning of the NG tube on the gastric wall. KUB --> Gaseous distention of bowel loops without obstruction (01/02) NG tube clamped overnight, KUB worse this morning --> Gaseous distention of multiple bowel loops throughout the abdomen in a pattern characteristic of a hypodynamic ileus. Rectal tube remains stable in position. The degree of gaseous distention may be slightly improved when compared to the prior. Reports of some BRB in NG tube yesterday, pts hgb has remained stable (01/03) Pt complaining of continued nausea, denies emesis and abdominal pain. NG to LIWS. Rectal tube to lau bag with small amount of stool. Repeat KUB from this AM --> Stable, nonspecific abdomen appearance Called Alexandra [place] Discussed clamping NG and trial clear liquids, if pt does not tolerate turn NG back to suction 01/04/2018 patient is beginning to show slow gradual improvement but still having nausea and was placed back on low intermittent suction over the past 24 hours after clear liquids. No obvious emesis. Rectal Lau has minimal drainage this a.m. Mild generalized abdominal pain, minimal changes to light palpation. KUB showed stable nonobstructive pattern on 01/03/2018, today's KUB did show some mild ileus. patient is interested in goals short-term and long- term which were discussed with her. This includes maintaining NG tube clamped and being able to tolerate liquids so the NG tube can be removed when patient is stable. Discussed rectal tube removal as long as patient is not having copious amounts of clear dark brown stool. Also discussed these goals with the nurse. Encourage patient to practice reflux precautions and have the head of the bed elevated at least 45 while eating and afterwards 1 hour. Order KUB for follow-up in a.m. to reevaluate any acute changes impatience ileus. 01/05/2018. Patient was able to tolerate clear liquids without any nausea vomiting NG tube was removed today. Patient appears to be feeling somewhat better. Visitors present. KUB repeated today which shows slow resolving improvement. Stool is seen in the colon and patient still has rectal tube with no output. Plan to remove rectal Lau today and increased dose of MiraLAX to twice daily. Ileus appears to be resolving 01/06/2018 patient is tolerating clear liquids and continues to remain stable with NG tube out. Patient had large BM yesterday p.m. after rectal Lau was DC 'd. Continue to encourage bowel regimen for patient to be aware of at least every 2-3 days. Patient continues gradual improvement from ileus. Will recheck KUB in a.m. 01/07/2018 patient seems to have some nausea today but no vomiting Plan: At this point patient's blood sugars still are poorly controlled and I think this is partially the cause for continued nausea and most likely patient has underlying gastroparesis Continue with Reglan can always contemplate adding erythromycin if symptoms worsen Advance diet MiraLAX twice daily PPI No much to add otherwise from a GI perspective we will sign off
[2018-01-08] MEDS: Ciprofloxacin 0.3% Opth Drops 5 ML Bottle EACH EYE SCH ×6 (01:27→22:30)
[2018-01-08] MEDS: Insulin NovoLIN Regular Correctional Sugar Inj SQ SCH ×6 (01:28→22:30)
[2018-01-08] MEDS: Hypromellose 0.3% Opth Gel 10 GM Bottle EACH EYE SCH ×6 (01:28→22:30)
[2018-01-08] MEDS: Sodium Chloride 0.45 % Inj 1,000 ML IV.CONT SCH ×3 (01:29→11:16)
[2018-01-08] MEDS: Furosemide 40 MG Tablet PO SCH (08:54)
[2018-01-08] MEDS: Pantoprazole Inj 40 MG Vial IV.PUSH SCH ×2 (08:54→23:04)
[2018-01-08] MEDS: Hydrocortisone 2.5% Cream 30 GM Tube TOPICAL SCH ×2 (08:55→22:30)
[2018-01-08] MEDS: Polyethylene Glycol 3350 17 GM Packet PO SCH (08:56)
[2018-01-08] MEDS: Budesonide-Formoterol 160/4.5 MCG 6 GM Inhaler INH SCH ×2 (08:56→22:30)
[2018-01-08] MEDS: Gabapentin Liq 250 MG/5 ML UDC NG/OG SCH ×3 (09:06→23:05)
--- NOTE | 2018-01-08 14:43 | P.PN ---
Subjective Interval history: Seen in her bedroom in the present of relatives, stable at this time her NG tube has to be placed again to slow suction. patient followed by General Surgery discussed with MARGARET, the patient is having some volume retention, she is in status post EGD and Colonoscopy found Gastric ischemia only to greater curvature, await repeat EGD, will order Lasix for volume overload and decrease IV fluids. 01/03: Seen in her bedroom in the presence of Nurse she continue with nausea, no vomit, NG tube was clamped and the patient was not able to tolerate it, has rectal tube recommended by GI specialist to repeat PKU in am tomorrow, continue to try to clamp NG tube, and repeat KUB in am tomorrow. 01/04: Stable in her bedroom, seen in the presence of nurse. 01/05: Seen in her bedroom, stable NG tube removed, rectal tube removed, patient feeling much better eating broth will add protein shake and continue to follow, much improved Conjunctivitis, seen by Podiatry specialist, crisis intervention specialist and GI specialist. 01/06: Patient with no complaint, eating broth today again and liquids with any complaint, improving in general she is asking for her diuretic will start low dose diuretics she states is not able to void without them, her renal function is been stable. 01/07: Stable in her bedroom, suggested Gastroparesis by GI specialist, she developed nausea but no vomit, giving Reglan by GI specialist, MiraLAX twice a day. and PPIs. afebrile. GI signed off. 01/08: Patient with her mother in the room, she had Nausea and vomit during the night, was started on scheduled MiraLAX yesterday by GI specialist will remove this medicine, also common side effect of Metoclopramide removed from her EMR and following, giving supportive care today, but we know no more Ileus at this time. Physical Exam Vital signs: Vital Signs 01/07/18 16:00 01/07/18 22:53 01/08/18 00:00 Temperature 98.1 F 98.4 F 97.7 F Pulse Rate 86 87 88 Respiratory Rate 17 18 18 Blood Pressure 131/61 162/75 H 134/66 Pulse Oximetry 95 94 L 95 01/08/18 04:00 01/08/18 04:28 01/08/18 04:29 Temperature 98.3 F Pulse Rate 86 83 Respiratory Rate 18 16 Blood Pressure 148/68 H Pulse Oximetry 95 93 L 01/08/18 08:00 01/08/18 09:38 01/08/18 12:00 Temperature 98.0 F 98.0 F Pulse Rate 84 90 85 Respiratory Rate 18 17 18 Blood Pressure 117/70 121/57 L Pulse Oximetry 95 92 L 98 Intake & Output 01/07/18 01/08/18 01/08/18 18:59 06:59 18:59 Intake Total 7190 / 7190 1200 / 1200 100 / 100 Balance 7190 / 7190 1200 / 1200 100 / 100 Weight 205.8 kg Intake: IV 6350 / 6350 1200 / 1200 100 / 100 1/2 Normal Saline Inj 1,000 ML 400 / 400 1000 / 1000 @ 84 mls/hr IV.CONT .[id number] ERNESTINA Rx#:[id number] Rocephin Inj 2,000 MG In NS Inj 100 / 100 100 ML @ 200 mls/hr IV.SIG Q24H ERNESTINA Rx#:[id number] Flagyl 500 MG Inj 100 ML @ 100 200 / 200 100 / 100 100 / 100 mls/hr IV.SIG Q8H ERNESTINA Rx#: [id number] Oral 840 / 840 Other: # Voids 2 Date of Last Bowel Movement 01/07/18 01/07/18 01/08/18 # Bowel Movements 2 Narrative: GENERAL: Morbid obese patient in no acute distress. SKIN: Warm and dry. HEAD: Normocephalic. EYES: No scleral icterus. erythema and edema on palpebral area, improving purulent secretion. NECK: Supple, trachea midline. No JVD or lymphadenopathy. CARDIOVASCULAR: Regular rate and rhythm without murmurs, gallops, or rubs. RESPIRATORY: Breath sounds equal bilaterally. No accessory muscle use. GASTROINTESTINAL: Abdomen soft, non-tender, nondistended. MUSCULOSKELETAL: No cyanosis, Pedal edema. BACK: Nontender without obvious deformity. No CVA tenderness. - Urinary Catheter Management Indwelling Urethral Catheter Cath placed during this visit: yes Reason for continuing: Chronic Urinary Retention Insertion date: 12/28/17 Insertion time: 05:00 Results - Labs CBC & Chem 7: 01/02/18 10:31 01/01/18 05:18 Laboratory Results - last 24 hr 01/07/18 16:06 POC Glucose 160 H Assessment and Plan - Assessment (1) Chest pain Code(s): R07.9 - Chest pain, unspecified Status: Acute (2) Dyspnea Code(s): R06.00 - Dyspnea, unspecified Status: Acute (3) Paced cardiac rhythm Status: Acute - Plan 1. Acute hypoxemic and hypercapnic respiratory failure, crisis intervention specialist following, status post Endotracheal intubation and Extubation, developed ischemic changes of the gastric wall and descending ischemic colitis in the right colon. Continues on antibiotics. 2. Ischemic Colitis. s/p EGD, colonoscopy: ischemic changes of the gastric wall and ischemic colitis of the right colon. Rocephin and Flagyl. removed NG tube and Rectal tube, today having some Nausea but no vomit, some component of Gastroparesis as per GI added Reglan and MiraLAX. at this time having some diarrhea, common side effect of this medicines will removed them along with all Laxatives. asked for C Diff test. 3. COPD stable no exacerbation. 4. DM II continue sliding scale stable blood sugar below 180 gr/dl. 5. Hypertension Mild uncontrol. 6. Morbid obesity strongly recommended diet and exercise as outpatient. 7. Suspected FELIPE. 8. Congestive Heart failure EF 45-50%. concentric hypertrophy likely secondary to Hypertension, at this time discussed with general surgery recommended for Lasix one dose due to volume overload. not seen overloaded. will start low dose Furosemide and also will follow left arm swelling rule out DVT. 9. Conjunctivitis started on Cipro ophthalmic and artificial tears. Improving. 10. MARÍA ELENA improved GI prophylaxis with Protonix DVT prophylaxis with heparin subcutaneously. Code Status: Full code. Discussed Condition With: Patient, her Mother in the room and Nurse miss Wilkins. Discharge Planning: Near to discharge now in the next 24 to 48 hours. (1) Chest pain Qualifiers: Chest pain type: unspecified Qualified Code(s): R07.9 - Chest pain, unspecified (2) Dyspnea Qualifiers: Dyspnea type: shortness of breath Qualified Code(s): R06.02 - Shortness of breath; R06.00 - Dyspnea, unspecified; R06.01 - Orthopnea
[2018-01-09] MEDS: Sodium Chloride 0.45 % Inj 1,000 ML IV.CONT SCH ×3 (00:11→22:53)
[2018-01-09] MEDS: Hypromellose 0.3% Opth Gel 10 GM Bottle EACH EYE SCH ×6 (00:12→22:45)
[2018-01-09] MEDS: Insulin NovoLIN Regular Correctional Sugar Inj SQ SCH ×6 (00:13→22:46)
[2018-01-09] MEDS: Ciprofloxacin 0.3% Opth Drops 5 ML Bottle EACH EYE SCH ×6 (02:22→22:45)
[2018-01-09] MEDS: Hydrocortisone 2.5% Cream 30 GM Tube TOPICAL SCH ×2 (09:00→22:46)
--- NOTE | 2018-01-09 09:01 | P.PN ---
Subjective Interval history: alert no sob on O2 N/C C/O DIARRHEA Physical Exam Vital signs: Vital Signs 01/08/18 09:38 01/08/18 12:00 01/08/18 16:00 Temperature 98.0 F 98.2 F Pulse Rate 90 85 90 Respiratory Rate 17 18 18 Blood Pressure 121/57 L 129/56 L Pulse Oximetry 92 L 98 96 01/08/18 20:00 01/09/18 00:00 01/09/18 01:20 Temperature 97.4 F L 98.3 F Pulse Rate 92 H 83 78 Respiratory Rate 18 18 20 Blood Pressure 113/70 105/52 L Pulse Oximetry 92 L 96 99 01/09/18 04:00 01/09/18 08:00 Temperature 98.1 F 98.0 F Pulse Rate 87 77 Respiratory Rate 18 19 Blood Pressure 110/67 128/63 Pulse Oximetry 98 96 Intake & Output 01/08/18 01/09/18 01/09/18 18:59 06:59 18:59 Intake Total 1200 / 1200 100 / 100 Balance 1200 / 1200 100 / 100 Intake: IV 1200 / 1200 100 / 100 1/2 Normal Saline Inj 1,000 ML 1000 / 1000 @ 84 mls/hr IV.CONT .[id number] ERNESTINA Rx#:[id number] Rocephin Inj 2,000 MG In NS Inj 100 / 100 100 ML @ 200 mls/hr IV.SIG Q24H ERNESTINA Rx#:[id number] Flagyl 500 MG Inj 100 ML @ 100 200 / 200 mls/hr IV.SIG Q8H ERNESTINA Rx#: [id number] Other: # Voids 3 Date of Last Bowel Movement 01/08/18 01/08/18 Narrative: GENERAL: Morbid obese patient in no acute distress. SKIN: Warm and dry. HEAD: Normocephalic. EYES: No scleral icterus. erythema and edema on palpebral area, improving purulent secretion. NECK: Supple, trachea midline. No JVD or lymphadenopathy. CARDIOVASCULAR: Regular rate and rhythm without murmurs, gallops, or rubs. RESPIRATORY: Breath sounds equal bilaterally. No accessory muscle use. GASTROINTESTINAL: Abdomen soft, non-tender, nondistended. MUSCULOSKELETAL: No cyanosis, Pedal edema. BACK: Nontender without obvious deformity. No CVA tenderness. - Urinary Catheter Management Indwelling Urethral Catheter Cath placed during this visit: yes Reason for continuing: Chronic Urinary Retention Insertion date: 12/28/17 Insertion time: 05:00 Results - Labs CBC & Chem 7: 01/02/18 10:31 01/01/18 05:18 Laboratory Results - last 24 hr 01/08/18 14:48 Stl C.difficile Tox PCR Negative St C. diff Tox Epid 027 Negative Assessment and Plan - Plan respiraty failure copd chf FELIPE MORBID OBESITY PLAN O2 NEEDED BRONCHODILATOR THERAPY BIPAP INCREASE ACTIVITY
[2018-01-09 09:08] LABS: Hematocrit 30.8 % (35.0-46.0); Hemoglobin 10.2 gm/dL (11.6-15.3); Mean Corpuscular HGB Conc 33.3 % (32.0-36.0); Mean Corpuscular Volume 90.2 fL (80.0-100.0); Mean Platelet Volume 8.8 fL (7.0-11.0); Platelet Count 211 th/mm3 (150-450); Red Blood Count 3.41 mil/mm3 (4.00-5.30); Red Cell Distribution Width 14.9 % (11.6-17.2); White Blood Count 8.4 th/mm3 (4.0-11.0)
[2018-01-09 09:53] LABS: Anion Gap 10 meq/L (5-15); Blood Urea Nitrogen 3 mg/dL (7-18); Carbon Dioxide 28.8 meq/L (21.0-32.0); Chloride 102 meq/L (98-107); Glomerular Filtration Rate Greater Than 89 mL/min (>89); Glucose,Random 129 mg/dL (74-106); Magnesium 1.7 mg/dL (1.5-2.5); Potassium 3.1 meq/L (3.5-5.1); Sodium 141 meq/L (136-145)
[2018-01-09 10:03] LABS: Phosphorus 3.1 mg/dL (2.5-4.9)
[2018-01-09] MEDS: Gabapentin Liq 250 MG/5 ML UDC NG/OG SCH ×3 (11:24→22:45)
[2018-01-09] MEDS: Pantoprazole Inj 40 MG Vial IV.PUSH SCH ×2 (11:25→20:47)
[2018-01-09] MEDS: Furosemide 40 MG Tablet PO SCH (11:25)
[2018-01-09] MEDS: Budesonide-Formoterol 160/4.5 MCG 6 GM Inhaler INH SCH ×2 (11:26→22:47)
[2018-01-09] MEDS: Nystatin Liq 500,000 UNIT/5 ML UDC SWISH-SWAL SCH ×3 (13:00→22:46)
--- NOTE | 2018-01-09 14:06 | P.PNPAL ---
Supportive visit with Ms. Mace. She is currently sitting up in bed, mother, aunt, and brother at bedside. Ms. Mace verbalizes she "has some kind of virus " and reports some nausea, vomiting, and diarrhea over the past 24-48hrs. She tells me symptoms are resolving, beginning to tolerate increase in fluids and liquid diet. Denies any other concerns. Ms. Mace elected to completed Health Care Surrogate designation. Completed today. * Primary HCS: Inder Ca, significant other: [phone] * Alternate HCS: Eloy Quiñones" Rodri, brother: [phone] Ms. Mace tells me she plans to complete [employer] W[employer] advance directive but not at this time. Encouraged family to participate in conversation regarding patient's wishes, especially with health care surrogates. Palliative care will continue to follow throughout hospitalization.
--- NOTE | 2018-01-09 16:24 | P.PN ---
Subjective Interval history: Seen in her bedroom in the present of relatives, stable at this time her NG tube has to be placed again to slow suction. patient followed by General Surgery discussed with MARGARET, the patient is having some volume retention, she is in status post EGD and Colonoscopy found Gastric ischemia only to greater curvature, await repeat EGD, will order Lasix for volume overload and decrease IV fluids. 01/03: Seen in her bedroom in the presence of Nurse she continue with nausea, no vomit, NG tube was clamped and the patient was not able to tolerate it, has rectal tube recommended by GI specialist to repeat PKU in am tomorrow, continue to try to clamp NG tube, and repeat KUB in am tomorrow. 01/04: Stable in her bedroom, seen in the presence of nurse. 01/05: Seen in her bedroom, stable NG tube removed, rectal tube removed, patient feeling much better eating broth will add protein shake and continue to follow, much improved Conjunctivitis, seen by Podiatry specialist, regulatory affairs strategy specialist and GI specialist. 01/06: Patient with no complaint, eating broth today again and liquids with any complaint, improving in general she is asking for her diuretic will start low dose diuretics she states is not able to void without them, her renal function is been stable. 01/07: Stable in her bedroom, suggested Gastroparesis by GI specialist, she developed nausea but no vomit, giving Reglan by GI specialist, MiraLAX twice a day. and PPIs. afebrile. GI signed off. 01/08: Patient with her mother in the room, she had Nausea and vomit during the night, was started on scheduled MiraLAX yesterday by GI specialist will remove this medicine, also common side effect of Metoclopramide removed from her EMR and following, giving supportive care today, but we know no more Ileus at this time. 01/09: Stable in her bedroom improving condition able to take liquid diet. no nausea, vomit or diarrhea. Physical Exam Vital signs: Vital Signs 01/08/18 20:00 01/09/18 00:00 01/09/18 01:20 Temperature 97.4 F L 98.3 F Pulse Rate 92 H 83 78 Respiratory Rate 18 18 20 Blood Pressure 113/70 105/52 L Pulse Oximetry 92 L 96 99 01/09/18 04:00 01/09/18 08:00 01/09/18 10:32 Temperature 98.1 F 98.0 F Pulse Rate 87 77 78 Respiratory Rate 18 19 16 Blood Pressure 110/67 128/63 Pulse Oximetry 98 96 01/09/18 10:33 01/09/18 11:52 Temperature 98.1 F Pulse Rate 84 Respiratory Rate 18 Blood Pressure 144/69 H Pulse Oximetry 98 96 Intake & Output 01/08/18 01/09/18 01/09/18 18:59 06:59 18:59 Intake Total 1200 / 1200 200 / 200 Balance 1200 / 1200 200 / 200 Intake: IV 1200 / 1200 200 / 200 1/2 Normal Saline Inj 1,000 ML 1000 / 1000 @ 84 mls/hr IV.CONT .[id number] ER[facility]ST[facility] Rx#:[id number] Rocephin Inj 2,000 MG In NS Inj 100 / 100 100 ML @ 200 mls/hr IV.SIG Q24H ER[facility] Rx#:[id number] Flagyl 500 MG Inj 100 ML @ 100 200 / 200 100 / 100 mls/hr IV.SIG Q8H ERNESTINA Rx#: [id number] Other: # Voids 3 Date of Last Bowel Movement 01/08/18 01/08/18 Narrative: GENERAL: Morbid obese patient in no acute distress. SKIN: Warm and dry. HEAD: Normocephalic. EYES: No scleral icterus. erythema and edema on palpebral area, improving purulent secretion. NECK: Supple, trachea midline. No JVD or lymphadenopathy. CARDIOVASCULAR: Regular rate and rhythm without murmurs, gallops, or rubs. RESPIRATORY: Breath sounds equal bilaterally. No accessory muscle use. GASTROINTESTINAL: Abdomen soft, non-tender, nondistended. MUSCULOSKELETAL: No cyanosis, Pedal edema. BACK: Nontender without obvious deformity. No CVA tenderness. - Urinary Catheter Management Indwelling Urethral Catheter Cath placed during this visit: yes Reason for continuing: Chronic Urinary Retention Insertion date: 12/28/17 Insertion time: 05:00 Results - Labs CBC & Chem 7: 01/09/18 07:56 01/11/18 11:47 Laboratory Results - last 24 hr 01/08/18 01/09/18 01/09/18 14:48 07:56 07:56 WBC 8.4 RBC 3.41 L Hgb 10.2 L Hct 30.8 L MCV 90.2 MCH 30.0 MCHC 33.3 RDW 14.9 Plt Count 211 MPV 8.8 Sodium 141 Potassium 3.1 L Chloride 102 Carbon Dioxide 28.8 Anion Gap 10 BUN 3 L Creatinine 0.53 Estimated GFR Greater than 89 Random Glucose 129 H Calcium 8.0 L Phosphorus 3.1 Magnesium 1.7 Stl C.difficile Tox PCR Negative St C. diff Tox Epid 027 Negative Assessment and Plan - Assessment (1) Chest pain Code(s): R07.9 - Chest pain, unspecified Status: Acute (2) Dyspnea Code(s): R06.00 - Dyspnea, unspecified Status: Acute (3) Paced cardiac rhythm Status: Acute - Plan 1. Acute hypoxemic and hypercapnic respiratory failure, regulatory affairs strategy specialist following, status post Endotracheal intubation and Extubation, developed ischemic changes of the gastric wall and descending ischemic colitis in the right colon. continue antibiotics by now. 2. Ischemic Colitis. s/p EGD, colonoscopy: ischemic changes of the gastric wall and ischemic colitis of the right colon. Rocephin and Flagyl. removed NG tube and Rectal tube, today having some Nausea but no vomit, some component of Gastroparesis as per GI added Reglan and MiraLAX. at this time having some diarrhea, common side effect of this medicines will removed them along with all Laxatives. asked for C Diff test was negative and improving loose stools. 3. COPD stable no exacerbation. 4. DM II continue sliding scale stable blood sugar below 180 gr/dl. 5. Hypertension better control. 6. Morbid obesity strongly recommended diet and exercise as outpatient. 7. Suspected FELIPE. 8. Congestive Heart failure EF 45-50%. concentric hypertrophy likely secondary to Hypertension, at this time discussed with general surgery recommended for Lasix one dose due to volume overload. not seen overloaded. will start low dose Furosemide and also will follow left arm swelling rule out DVT. 9. Conjunctivitis started on Cipro ophthalmic and artificial tears. Improving. 10. MARÍA ELENA improved GI prophylaxis with Protonix DVT prophylaxis with heparin subcutaneously. Code Status: Full Code Discussed Condition With: Patient and nurse. Discharge Planning: Near to discharge now in the next 24 to 48 hours. (1) Chest pain Qualifiers: Chest pain type: unspecified Qualified Code(s): R07.9 - Chest pain, unspecified (2) Dyspnea Qualifiers: Dyspnea type: shortness of breath Qualified Code(s): R06.02 - Shortness of breath; R06.00 - Dyspnea, unspecified; R06.01 - Orthopnea
[2018-01-10] MEDS: Hypromellose 0.3% Opth Gel 10 GM Bottle EACH EYE SCH ×7 (00:47→23:02)
[2018-01-10] MEDS: Insulin NovoLIN Regular Correctional Sugar Inj SQ SCH ×7 (00:48→23:02)
[2018-01-10] MEDS: Ciprofloxacin 0.3% Opth Drops 5 ML Bottle EACH EYE SCH ×6 (00:48→20:38)
--- NOTE | 2018-01-10 07:58 | P.PN ---
Subjective Interval history: alert no SOB Physical Exam Vital signs: Vital Signs 01/09/18 08:00 01/09/18 10:32 01/09/18 10:33 Temperature 98.0 F Pulse Rate 79 78 Respiratory Rate 19 16 Blood Pressure 128/63 Pulse Oximetry 96 98 01/09/18 11:52 01/09/18 12:00 01/09/18 16:00 Temperature 98.1 F 98.1 F Pulse Rate 84 79 79 Respiratory Rate 18 18 Blood Pressure 144/69 H 143/68 H Pulse Oximetry 96 96 01/09/18 20:00 01/09/18 20:55 01/09/18 23:52 Temperature 98.2 F Pulse Rate 80 84 Respiratory Rate 20 20 Blood Pressure 120/60 Pulse Oximetry 97 95 01/10/18 00:00 01/10/18 04:29 Temperature 98.6 F 97.9 F Pulse Rate 89 83 Respiratory Rate 20 20 Blood Pressure 126/63 139/73 Pulse Oximetry 96 94 L Intake & Output 01/09/18 01/10/18 01/10/18 18:59 06:59 18:59 Intake Total 1060 / 1060 1100 / 1100 Output Total 700 / 700 Balance 360 / 360 1100 / 1100 Weight 204.4 kg Intake: IV 100 / 100 1100 / 1100 1/2 Normal Saline Inj 1,000 ML 1000 / 1000 @ 84 mls/hr IV.CONT .[id number] [facility] Rx#:[id number] Flagyl 500 MG Inj 100 ML @ 100 100 / 100 100 / 100 mls/hr IV.SIG Q8H [facility] Rx#: [id number] Oral 960 / 960 Output: Urine 700 / 700 Other: # Voids 3 Date of Last Bowel Movement 01/08/18 01/09/18 Narrative: GENERAL: Morbid obese patient in no acute distress. SKIN: Warm and dry. HEAD: Normocephalic. EYES: No scleral icterus. erythema and edema on palpebral area, improving purulent secretion. NECK: Supple, trachea midline. No JVD or lymphadenopathy. CARDIOVASCULAR: Regular rate and rhythm without murmurs, gallops, or rubs. RESPIRATORY: Breath sounds equal bilaterally. No accessory muscle use. GASTROINTESTINAL: Abdomen soft, non-tender, nondistended. MUSCULOSKELETAL: No cyanosis, Pedal edema. BACK: Nontender without obvious deformity. No CVA tenderness. - Urinary Catheter Management Indwelling Urethral Catheter Cath placed during this visit: yes Reason for continuing: Chronic Urinary Retention Insertion date: 12/28/17 Insertion time: 05:00 Results - Labs CBC & Chem 7: 01/09/18 07:56 01/09/18 07:56 Laboratory Results - last 24 hr 01/09/18 01/09/18 01/09/18 07:56 07:56 17:24 WBC 8.4 RBC 3.41 L Hgb 10.2 L Hct 30.8 L MCV 90.2 MCH 30.0 MCHC 33.3 RDW 14.9 Plt Count 211 MPV 8.8 Sodium 141 Potassium 3.1 L Chloride 102 Carbon Dioxide 28.8 Anion Gap 10 BUN 3 L Creatinine 0.53 Estimated GFR Greater than 89 POC Glucose 112 H Random Glucose 129 H Calcium 8.0 L Phosphorus 3.1 Magnesium 1.7 Assessment and Plan - Plan respiraty failure copd chf FELIPE MORBID [employer]ESITY PLAN O2 NEEDED BRONCHODILATOR THERAPY BIPAP INCREASE ACTIVITY
[2018-01-10] MEDS: Furosemide 40 MG Tablet PO SCH (10:37)
[2018-01-10] MEDS: Pantoprazole Inj 40 MG Vial IV.PUSH SCH ×2 (10:37→20:49)
[2018-01-10] MEDS: Nystatin Liq 500,000 UNIT/5 ML UDC SWISH-SWAL SCH ×4 (10:37→20:49)
[2018-01-10] MEDS: Gabapentin Liq 250 MG/5 ML UDC NG/OG SCH ×4 (10:38→20:50)
[2018-01-10] MEDS: Budesonide-Formoterol 160/4.5 MCG 6 GM Inhaler INH SCH ×2 (10:38→20:51)
[2018-01-10] MEDS: Hydrocortisone 2.5% Cream 30 GM Tube TOPICAL SCH ×2 (11:19→20:39)
[2018-01-10] MEDS: Sodium Chloride 0.45 % Inj 1,000 ML IV.CONT SCH ×2 (13:05→23:01)
--- NOTE | 2018-01-10 17:37 | P.PN ---
Subjective Interval history: Seen in her bedroom in the present of relatives, stable at this time her NG tube has to be placed again to slow suction. patient followed by General Surgery discussed with MARGARET, the patient is having some volume retention, she is in status post EGD and Colonoscopy found Gastric ischemia only to greater curvature, await repeat EGD, will order Lasix for volume overload and decrease IV fluids. 01/03: Seen in her bedroom in the presence of Nurse she continue with nausea, no vomit, NG tube was clamped and the patient was not able to tolerate it, has rectal tube recommended by GI specialist to repeat PKU in am tomorrow, continue to try to clamp NG tube, and repeat KUB in am tomorrow. 01/04: Stable in her bedroom, seen in the presence of nurse. 01/05: Seen in her bedroom, stable NG tube removed, rectal tube removed, patient feeling much better eating broth will add protein shake and continue to follow, much improved Conjunctivitis, seen by Podiatry specialist, ergonomic specialist and GI specialist. 01/06: Patient with no complaint, eating broth today again and liquids with any complaint, improving in general she is asking for her diuretic will start low dose diuretics she states is not able to void without them, her renal function is been stable. 01/07: Stable in her bedroom, suggested Gastroparesis by GI specialist, she developed nausea but no vomit, giving Reglan by GI specialist, MiraLAX twice a day. and PPIs. afebrile. GI signed off. 01/08: Patient with her mother in the room, she had Nausea and vomit during the night, was started on scheduled MiraLAX yesterday by GI specialist will remove this medicine, also common side effect of Metoclopramide removed from her EMR and following, giving supportive care today, but we know no more Ileus at this time. 01/09: Stable in her bedroom improving condition able to take liquid diet. 01/10: Discussed with patient and nurse in the room, she needs to go to continue Rehabilitation discussed with senior online marketing manager ready for discharge but tomorrow not today, no nausea, vomit or diarrhea already GI specialist signed off the case already. Physical Exam Vital signs: Vital Signs 01/09/18 20:00 01/09/18 20:55 01/09/18 23:52 Temperature 98.2 F Pulse Rate 80 84 Respiratory Rate 20 20 Blood Pressure 120/60 Pulse Oximetry 97 95 01/10/18 00:00 01/10/18 04:29 01/10/18 08:00 Temperature 98.6 F 97.9 F 97.8 F Pulse Rate 89 83 82 Respiratory Rate 20 20 16 Blood Pressure 126/63 139/73 138/63 Pulse Oximetry 96 94 L 97 01/10/18 09:49 01/10/18 12:00 01/10/18 16:00 Temperature 98.3 F 97.7 F Pulse Rate 81 85 82 Respiratory Rate 16 16 16 Blood Pressure 136/65 140/66 Pulse Oximetry 96 94 L 97 Intake & Output 01/09/18 01/10/18 01/10/18 18:59 06:59 18:59 Intake Total 1060 / 1060 1100 / 1100 1200 / 1200 Output Total 700 / 700 Balance 360 / 360 1100 / 1100 1200 / 1200 Weight 204.4 kg Intake: IV 100 / 100 1100 / 1100 1200 / 1200 1/2 Normal Saline Inj 1,000 ML 1000 / 1000 1000 / 1000 @ 84 mls/hr IV.CONT .[id number] [facility] Rx#:[id number] Rocephin Inj 2,000 MG In NS Inj 100 / 100 100 ML @ 200 mls/hr IV.SIG Q24H [facility] Rx#:[id number] Flagyl 500 MG Inj 100 ML @ 100 100 / 100 100 / 100 100 / 100 mls/hr IV.SIG Q8H ERNEST[facility] Rx#: [id number] Oral 960 / 960 Output: Urine 700 / 700 Other: # Voids 3 Date of Last Bowel Movement 01/08/18 01/09/18 Narrative: GENERAL: Morbid obese patient in no acute distress. SKIN: Warm and dry. HEAD: Normocephalic. EYES: No scleral icterus. erythema and edema on palpebral area, improving purulent secretion. NECK: Supple, trachea midline. No JVD or lymphadenopathy. CARDIOVASCULAR: Regular rate and rhythm without murmurs, gallops, or rubs. RESPIRATORY: Breath sounds equal bilaterally. No accessory muscle use. GASTROINTESTINAL: Abdomen soft, non-tender, nondistended. MUSCULOSKELETAL: No cyanosis, Pedal edema. BACK: Nontender without obvious deformity. No CVA tenderness. - Urinary Catheter Management Indwelling Urethral Catheter Cath placed during this visit: yes Reason for continuing: Chronic Urinary Retention Insertion date: 12/28/17 Insertion time: 05:00 Results - Labs CBC & Chem 7: 01/09/18 07:56 01/11/18 11:47 Laboratory Results - last 24 hr 01/10/18 16:39 POC Glucose 129 H Assessment and Plan - Assessment (1) Chest pain Code(s): R07.9 - Chest pain, unspecified Status: Acute (2) Dyspnea Code(s): R06.00 - Dyspnea, unspecified Status: Acute (3) Paced cardiac rhythm Status: Acute - Plan 1. Acute hypoxemic and hypercapnic respiratory failure, ergonomic specialist following, status post Endotracheal intubation and Extubation, developed ischemic changes of the gastric wall and descending ischemic colitis in the right colon. Continues on antibiotics. 2. Ischemic Colitis. s/p EGD, colonoscopy: ischemic changes of the gastric wall and ischemic colitis of the right colon. Rocephin and Flagyl. removed NG tube and Rectal tube, today having some Nausea but no vomit, some component of Gastroparesis as per GI added Reglan and MiraLAX. at this time having some diarrhea, common side effect of this medicines will removed them along with all Laxatives. asked for C Diff test. 3. COPD stable no exacerbation. 4. DM II continue sliding scale stable blood sugar below 180 gr/dl. 5. Hypertension Mild uncontrol. 6. Morbid obesity strongly recommended diet and exercise as outpatient. 7. Suspected FELIPE. 8. Congestive Heart failure EF 45-50%. concentric hypertrophy likely secondary to Hypertension, at this time discussed with general surgery recommended for Lasix one dose due to volume overload. not seen overloaded. will start low dose Furosemide and also will follow left arm swelling rule out DVT. 9. Conjunctivitis started on Cipro ophthalmic and artificial tears. Improving. 10. MARÍA ELENA improved GI prophylaxis with Protonix DVT prophylaxis with heparin subcutaneously. Code Status: Full code. Discussed Condition With: patient and nurse. Discharge Planning: Expected by tomorrow. (1) Chest pain Qualifiers: Chest pain type: unspecified Qualified Code(s): R07.9 - Chest pain, unspecified (2) Dyspnea Qualifiers: Dyspnea type: shortness of breath Qualified Code(s): R06.02 - Shortness of breath; R06.00 - Dyspnea, unspecified; R06.01 - Orthopnea
[2018-01-11] MEDS: Ciprofloxacin 0.3% Opth Drops 5 ML Bottle EACH EYE SCH ×5 (00:47→17:02)
[2018-01-11] MEDS: Insulin NovoLIN Regular Correctional Sugar Inj SQ SCH ×4 (03:05→17:02)
[2018-01-11] MEDS: Hypromellose 0.3% Opth Gel 10 GM Bottle EACH EYE SCH ×4 (03:05→17:02)
[2018-01-11] MEDS: Hydrocortisone 2.5% Cream 30 GM Tube TOPICAL SCH (08:37)
[2018-01-11] MEDS: Pantoprazole Inj 40 MG Vial IV.PUSH SCH (08:38)
[2018-01-11] MEDS: Furosemide 40 MG Tablet PO SCH (08:38)
[2018-01-11] MEDS: Gabapentin Liq 250 MG/5 ML UDC NG/OG SCH ×2 (08:38→17:01)
[2018-01-11] MEDS: Budesonide-Formoterol 160/4.5 MCG 6 GM Inhaler INH SCH (08:39)
[2018-01-11] MEDS: Nystatin Liq 500,000 UNIT/5 ML UDC SWISH-SWAL SCH ×2 (09:10→13:03)
--- NOTE | 2018-01-11 11:37 | P.PNPAL ---
Met with Ms. Mace. Physical therapy and family at bedside. Attending physician present for portion of time in the room. Ms. Mace currently sitting up on bedside. Moving her left foot. Tolerating well. Ms. Mace reports she is being discharged today. She denies any questions or concerns at this time. Confirms she has palliative care contact information.
[2018-01-11 12:27] LABS: Anion Gap 10 meq/L (5-15); Blood Urea Nitrogen 3 mg/dL (7-18); Calcium 8.2 mg/dL (8.5-10.1); Carbon Dioxide 29.8 meq/L (21.0-32.0); Chloride 99 meq/L (98-107); Glomerular Filtration Rate Greater Than 89 mL/min (>89); Glucose,Random 132 mg/dL (74-106); Magnesium 1.6 mg/dL (1.5-2.5); Potassium 3.2 meq/L (3.5-5.1); Sodium 139 meq/L (136-145)
[2018-01-11] MEDS ORDERED: Magnesium Sulfate Inj 2 GM in Sodium Chlor 0.9% Inj 96 ML IV.SIG ONE (13:14)
--- NOTE | 2018-01-11 13:39 | P.PN ---
Subjective Interval history: Seen in her bedroom in the present of relatives, stable at this time her NG tube has to be placed again to slow suction. patient followed by General Surgery discussed with MARGARET, the patient is having some volume retention, she is in status post EGD and Colonoscopy found Gastric ischemia only to greater curvature, await repeat EGD, will order Lasix for volume overload and decrease IV fluids. 01/03: Seen in her bedroom in the presence of Nurse she continue with nausea, no vomit, NG tube was clamped and the patient was not able to tolerate it, has rectal tube recommended by GI specialist to repeat PKU in am tomorrow, continue to try to clamp NG tube, and repeat KUB in am tomorrow. 01/04: Stable in her bedroom, seen in the presence of nurse. 01/05: Seen in her bedroom, stable NG tube removed, rectal tube removed, patient feeling much better eating broth will add protein shake and continue to follow, much improved Conjunctivitis, seen by Podiatry specialist, art specialist and GI specialist. 01/06: Patient with no complaint, eating broth today again and liquids with any complaint, improving in general she is asking for her diuretic will start low dose diuretics she states is not able to void without them, her renal function is been stable. 01/07: Stable in her bedroom, suggested Gastroparesis by GI specialist, she developed nausea but no vomit, giving Reglan by GI specialist, MiraLAX twice a day. and PPIs. afebrile. GI signed off. 01/08: Patient with her mother in the room, she had Nausea and vomit during the night, was started on scheduled MiraLAX yesterday by GI specialist will remove this medicine, also common side effect of Metoclopramide removed from her EMR and following, giving supportive care today, but we know no more Ileus at this time. 01/09: Stable in her bedroom improving condition able to take liquid diet. 01/10: Discussed with patient and nurse in the room, she needs to go to continue Rehabilitation discussed with house manager ready for discharge but tomorrow not today, already GI specialist signed off the case already. 01/11: seen in her bedroom her mother and other Relatives present, also Physical Therapy present, no nausea, vomit or diarrhea, will need to go to Rehab facility, all questions answered today. stable will continue to advance diet as tolerated at [facility]. Physical Exam Vital signs: Vital Signs 01/10/18 16:00 01/10/18 20:00 01/10/18 20:37 Temperature 97.7 F 97.6 F Pulse Rate 82 87 87 Respiratory Rate 16 20 Blood Pressure 140/66 129/65 Pulse Oximetry 97 95 01/11/18 00:00 01/11/18 00:08 01/11/18 04:33 Temperature 97.4 F L 97.8 F Pulse Rate 80 85 81 Respiratory Rate 21 18 Blood Pressure 120/68 121/62 Pulse Oximetry 97 93 L 01/11/18 08:00 01/11/18 09:24 01/11/18 12:00 Temperature 97.9 F 98.1 F Pulse Rate 80 80 100 H Respiratory Rate 17 18 17 Blood Pressure 107/60 122/73 Pulse Oximetry 95 95 100 Intake & Output 01/10/18 01/11/18 01/11/18 18:59 06:59 18:59 Intake Total 2900 / 2900 1680 / 1680 100 / 100 Output Total 3000 / 3000 1300 / 1300 Balance -100 / -100 380 / 380 100 / 100 Weight 204.4 kg Intake: IV 1300 / 1300 1200 / 1200 100 / 100 1/2 Normal Saline Inj 1,000 ML 1000 / 1000 1000 / 1000 @ 84 mls/hr IV.CONT .[id number] ERNESTINA Rx#:[id number] Rocephin Inj 2,000 MG In NS Inj 100 / 100 100 / 100 100 ML @ 200 mls/hr IV.SIG Q24H ERNESTINA Rx#:[id number] Flagyl 500 MG Inj 100 ML @ 100 200 / 200 100 / 100 100 / 100 mls/hr IV.SIG Q8H ERNESTINA Rx#: [id number] Oral 1600 / 1600 480 / 480 Output: Urine 3000 / 3000 1300 / 1300 Other: Date of Last Bowel Movement 01/09/18 01/10/18 # Bowel Movements 1 2 Narrative: GENERAL: Morbid obese patient in no acute distress. SKIN: Warm and dry. HEAD: Normocephalic. EYES: No scleral icterus. erythema and edema on palpebral area, improving purulent secretion. NECK: Supple, trachea midline. No JVD or lymphadenopathy. CARDIOVASCULAR: Regular rate and rhythm without murmurs, gallops, or rubs. RESPIRATORY: Breath sounds equal bilaterally. No accessory muscle use. GASTROINTESTINAL: Abdomen soft, non-tender, nondistended. MUSCULOSKELETAL: No cyanosis, Pedal edema. BACK: Nontender without obvious deformity. No CVA tenderness. - Urinary Catheter Management Indwelling Urethral Catheter Cath placed during this visit: yes Reason for continuing: Chronic Urinary Retention Insertion date: 12/28/17 Insertion time: 05:00 Results - Labs CBC & Chem 7: 01/09/18 07:56 01/11/18 11:47 Laboratory Results - last 24 hr 01/10/18 01/11/18 01/11/18 16:39 05:32 11:47 Sodium 139 Potassium 3.2 L Chloride 99 Carbon Dioxide 29.8 Anion Gap 10 BUN 3 L Creatinine 0.68 Estimated GFR Greater than 89 POC Glucose 129 H 130 H Random Glucose 132 H Calcium 8.2 L Magnesium 1.6 Assessment and Plan - Assessment (1) Chest pain Code(s): R07.9 - Chest pain, unspecified Status: Acute (2) Dyspnea Code(s): R06.00 - Dyspnea, unspecified Status: Acute (3) Paced cardiac rhythm Status: Acute - Plan 1. Acute hypoxemic and hypercapnic respiratory failure, art specialist following, status post Endotracheal intubation and Extubation, developed ischemic changes of the gastric wall and descending ischemic colitis in the right colon. off antibiotics today. 2. Ischemic Colitis. s/p EGD, colonoscopy: ischemic changes of the gastric wall and ischemic colitis of the right colon. Rocephin and Flagyl. removed NG tube and Rectal tube, today having some Nausea but no vomit, some component of Gastroparesis as per GI added Reglan and MiraLAX. at this time having some diarrhea, common side effect of this medicines will removed them along with all Laxatives. asked for C Diff test. Now improved. 3. COPD stable no exacerbation. 4. DM II continue sliding scale stable blood sugar below 180 gr/dl. has been controlled here. 5. Hypertension controlled. 6. Morbid obesity strongly recommended diet and exercise as outpatient. 7. Suspected FELPIE will need to follow as outpatient with her PCP and get Polysomnography test. 8. Congestive Heart failure EF 45-50%. concentric hypertrophy likely secondary to Hypertension, at this time discussed with general surgery recommended for Lasix one dose due to volume overload. not seen overloaded. will start low dose Furosemide and also will follow left arm swelling rule out DVT. 9. Conjunctivitis started on Cipro ophthalmic and artificial tears. Improved 10. MARÍA ELENA improved GI prophylaxis with Protonix DVT prophylaxis with heparin subcutaneously. Code Status: Full code. Discussed Condition With: Patient, nurse, Mother, other relatives, i&c technician and Physical Therapy team in the room. Discharge Planning: Discharge to [facility] today. (1) Chest pain Qualifiers: Chest pain type: unspecified Qualified Code(s): R07.9 - Chest pain, unspecified (2) Dyspnea Qualifiers: Dyspnea type: shortness of breath Qualified Code(s): R06.02 - Shortness of breath; R06.00 - Dyspnea, unspecified; R06.01 - Orthopnea
--- NOTE | 2018-01-11 13:42 | P.DS ---
Date of admission: 12/27/17 14:58 Primary care physician: Radha Hernandez Attending physician on discharge: Yadiel Nixon Anticipated date of discharge: 01/11/18 Brief History from admission: Patient is a 57-year-old morbidly obese patient with primary medical history of HTN, HLD, DM, hypothyroidism, COPD, CHF who initially came into the hospital for complaints of chest pain described as she thinks the pacemaker is not working well. States that chest pain is usually on the left side of the chest radiating towards the left arm with numbness and tingling. Is not associated with nausea, vomiting, diaphoresis. States that she is being followed by Dr. Cummins and Dr. Sanches in the outpatient. Dr. Sanches placed the pacemaker. Previously replacements, this is the 6th. She also complains of left toe blister. Complains of generalized weakness was not walking 1 year, she also states that she does not stand or move around 1 year. Patient also relates that she has upper respiratory infection were and she was placed on Bactrim and clindamycin however she stopped taking clindamycin secondary to GI upset, no diarrhea. Patient states she also stopped taking Bactrim possibly 2 days back she does not know how many Bactrim pills she needs to take as she states that she is having difficulty swallowing the pills. Patient complains of dysphasia denies odynophagia. Complains of shortness of breath and dyspnea. Denies cough. Denies nausea, vomiting, diarrhea. Denies fevers, chills. Chest x-ray negative, EKG shows ventricular pacemaker rate DS: Diagnosis - Discharge Diagnosis (1) Chest pain Status: Acute (2) Dyspnea Status: Acute (3) Paced cardiac rhythm Status: Acute DS: Medications - Discharge Medications Prescriptions: alprazolam [Xanax] 0.5 mg PO TID PRN 3 Days #10 tab PRN Reason: Anxiety budesonide-formoterol [Symbicort] 2 puff INH BID #1 inh hydrocodone-acetaminophen 1 tab PO Q4H PRN 3 Days #14 tab PRN Reason: Pain DS: Summary Hospital Course: Seen in her bedroom in the present of relatives, stable at this time her NG tube has to be placed again to slow suction. patient followed by General Surgery discussed with ASSISTANT SHIFT SUPERVISOR, the patient is having some volume retention, she is in status post EGD and Colonoscopy found Gastric ischemia only to greater curvature, await repeat EGD, will order Lasix for volume overload and decrease IV fluids. 01/03: Seen in her bedroom in the presence of Nurse she continue with nausea, no vomit, NG tube was clamped and the patient was not able to tolerate it, has rectal tube recommended by GI specialist to repeat PKU in am tomorrow, continue to try to clamp NG tube, and repeat KUB in am tomorrow. 01/04: Stable in her bedroom, seen in the presence of nurse. 01/05: Seen in her bedroom, stable NG tube removed, rectal tube removed, patient feeling much better eating broth will add protein shake and continue to follow, much improved Conjunctivitis, seen by Podiatry specialist, cash specialist and GI specialist. 01/06: Patient with no complaint, eating broth today again and liquids with any complaint, improving in general she is asking for her diuretic will start low dose diuretics she states is not able to void without them, her renal function is been stable. 01/07: Stable in her bedroom, suggested Gastroparesis by GI specialist, she developed nausea but no vomit, giving Reglan by GI specialist, MiraLAX twice a day. and PPIs. afebrile. GI signed off. 01/08: Patient with her mother in the room, she had Nausea and vomit during the night, was started on scheduled MiraLAX yesterday by GI specialist will remove this medicine, also common side effect of Metoclopramide removed from her EMR and following, giving supportive care today, but we know no more Ileus at this time. 01/09: Stable in her bedroom improving condition able to take liquid diet. 01/10: Discussed with patient and nurse in the room, she needs to go to continue Rehabilitation discussed with credit department manager ready for discharge but tomorrow not today, already GI specialist signed off the case already. 01/11: seen in her bedroom her mother and other Relatives present, also Physical Therapy present, no nausea, vomit or diarrhea, will need to go to Rehab facility, all questions answered today. stable will continue to advance diet as tolerated at SNF. Assessment and Plan - Assessment (1) Chest pain Code(s): R07.9 - Chest pain, unspecified Status: Acute (2) Dyspnea Code(s): R06.00 - Dyspnea, unspecified Status: Acute (3) Paced cardiac rhythm Status: Acute - Plan 1. Acute hypoxemic and hypercapnic respiratory failure, cash specialist following, status post Endotracheal intubation and Extubation, developed ischemic changes of the gastric wall and descending ischemic colitis in the right colon. off antibiotics today. 2. Ischemic Colitis. s/p EGD, colonoscopy: ischemic changes of the gastric wall and ischemic colitis of the right colon. Rocephin and Flagyl. removed NG tube and Rectal tube, today having some Nausea but no vomit, some component of Gastroparesis as per GI added Reglan and MiraLAX. at this time having some diarrhea, common side effect of this medicines will removed them along with all Laxatives. asked for C Diff test. Now improved. 3. COPD stable no exacerbation. 4. DM II continue sliding scale stable blood sugar below 180 gr/dl. has been controlled here. 5. Hypertension controlled. 6. Morbid obesity strongly recommended diet and exercise as outpatient. 7. Suspected FELIPE will need to follow as outpatient with her PCP and get Polysomnography test. 8. Congestive Heart failure EF 45-50%. concentric hypertrophy likely secondary to Hypertension, at this time discussed with general surgery recommended for Lasix one dose due to volume overload. not seen overloaded. will start low dose Furosemide and also will follow left arm swelling rule out DVT. 9. Conjunctivitis started on Cipro ophthalmic and artificial tears. Improved 10. MARÍA ELENA improved GI prophylaxis with Protonix DVT prophylaxis with heparin subcutaneously. Code Status: Full code. Discussed Condition With: Patient, nurse, Mother, other relatives, recordist and Physical Therapy team in the room. Discharge Planning: Discharge to SNF today. (1) Chest pain Qualifiers: Chest pain type: unspecified Qualified Code(s): R07.9 - Chest pain, unspecified (2) Dyspnea Qualifiers: Dyspnea type: shortness of breath Qualified Code(s): R06.02 - Shortness of breath; R06.00 - Dyspnea, unspecified; R06.01 - Orthopnea - Time Spent with Patient Total time spent providing and/or coordinating discharge services: Greater than 30 minutes - Quality: VTE Deep Vein Thrombosis/Pulmonary Embolism Present on Admission: No Exam Vital signs: Vital Signs 01/10/18 16:00 01/10/18 20:00 01/10/18 20:37 Temperature 97.7 F 97.6 F Pulse Rate 82 87 87 Respiratory Rate 16 20 Blood Pressure 140/66 129/65 Pulse Oximetry 97 95 01/11/18 00:00 01/11/18 00:08 01/11/18 04:33 Temperature 97.4 F L 97.8 F Pulse Rate 80 85 81 Respiratory Rate 21 18 Blood Pressure 120/68 121/62 Pulse Oximetry 97 93 L 01/11/18 08:00 01/11/18 09:24 01/11/18 12:00 Temperature 97.9 F 98.1 F Pulse Rate 80 80 100 H Respiratory Rate 17 18 17 Blood Pressure 107/60 122/73 Pulse Oximetry 95 95 100 Intake & Output 01/10/18 01/11/18 01/11/18 18:59 06:59 18:59 Intake Total 2900 / 2900 1680 / 1680 100 / 100 Output Total 3000 / 3000 1300 / 1300 Balance -100 / -100 380 / 380 100 / 100 Weight 204.4 kg Intake: IV 1300 / 1300 1200 / 1200 100 / 100 1/2 Normal Saline Inj 1,000 ML 1000 / 1000 1000 / 1000 @ 84 mls/hr IV.CONT .[id number] ERNESTINA Rx#:[id number] Rocephin Inj 2,000 MG In NS Inj 100 / 100 100 / 100 100 ML @ 200 mls/hr IV.SIG Q24H ERNESTINA Rx#:[id number] Flagyl 500 MG Inj 100 ML @ 100 200 / 200 100 / 100 100 / 100 mls/hr IV.SIG Q8H ERNESTINA Rx#: [id number] Oral 1600 / 1600 480 / 480 Output: Urine 3000 / 3000 1300 / 1300 Other: Date of Last Bowel Movement 01/09/18 01/10/18 # Bowel Movements 1 2 Narrative: GENERAL: Morbid obese patient in no acute distress. SKIN: Warm and dry. HEAD: Normocephalic. EYES: No scleral icterus. erythema and edema on palpebral area, improving purulent secretion. NECK: Supple, trachea midline. No JVD or lymphadenopathy. CARDIOVASCULAR: Regular rate and rhythm without murmurs, gallops, or rubs. RESPIRATORY: Breath sounds equal bilaterally. No accessory muscle use. GASTROINTESTINAL: Abdomen soft, non-tender, nondistended. MUSCULOSKELETAL: No cyanosis, Pedal edema. BACK: Nontender without obvious deformity. No CVA tenderness. Results Procedures completed during hospitalization: Endotracheal intubation and extubation. Completed studies during hospitalization: Pending at discharge 12/28/17 13:38 Surgical [PTH] Routine Labs on day of discharge: Labs from last 24 hours 01/11/18 01/11/18 01/10/18 11:47 05:32 16:39 Sodium 139 Potassium 3.2 L Chloride 99 Carbon Dioxide 29.8 Anion Gap 10 BUN 3 L Creatinine 0.68 Estimated GFR Greater than 89 POC Glucose 130 H 129 H Random Glucose 132 H Calcium 8.2 L Magnesium 1.6 - Impressions ITS Impressions Toe X-Ray 12/20/17 00:00 CONCLUSION: Focal soft tissue swelling involving the fourth toe. The underlying bony structures are grossly intact. Abdomen/Pelvis CT 12/27/17 14:34 CONCLUSION: 1. Colonic distention with a large amount of stool as described, features most typical of a nonmechanical obstruction. 2. Gastric distention without a perceptible mass. A stricture in the region of the gastric antrum with the in the differential. Duodenum is decompressed. 3. There are scattered low-density lesions of the spleen, nonspecific but I believe they were present on the prior studies, just better seen today and probably benign. 4. There is infiltrate in the visualized right lung base. Chest X-Ray 12/28/17 10:54 CONCLUSION: Low lung volumes with bibasilar consolidation likely relating to atelectasis. Temporal Bone CT 12/30/17 00:00 CONCLUSION: 1. Mild partial opacification of the middle ear bilaterally and mild partial opacification of the anterior mastoid air cells bilaterally. No evidence of focal bone erosion. Ossicles are intact. 2. Moderate severity sinusitis most prominent in the posterior right ethmoid sinus with air-fluid level seen in this region suggesting acute sinusitis. Venous Doppler Study 01/06/18 00:00 CONCLUSION: 1. Thrombosis of the superficial cephalic vein. No evidence of deep venous thrombosis. Abdomen X-Ray 01/07/18 08:00 CONCLUSION: Examination quality less than optimal secondary to body habitus. There is gaseous distention of the stomach and mild distention of the small bowel. However, there are no features to definitively indicate obstruction. Although nonspecific, the findings could be related to mild ileus. Discharge Plan - Discharge Disposition Patient Disposition: 03 Discharge to SNF - Discharge Condition Condition: Stable - Discharge Order Discharge Orders: Discharge Order (Routine); Ordered 01/11/18 Ordered By: Yadiel Nixon - Discharge Details Anticipated Discharge Date: 01/11/18 Discharge Comment: Follow up with PCP in one week. - Physicians Team Primary Care Provider: Radha Hernandez Attending Provider: Yadiel Nixon Other Providers: Tamar Sanches MD ; El Araujo DPM ; Rachael Mejias MD ; Daryl Boogie MD ; Seferino Guzman MD ; Salomon Beltre MD ; Fuad Coronel MD ; Zachary Morin MD ; Darren Hess MD ; Shahbaz Hartmann MD ; [facility] ; [facility] ; [facility], ; [facility] ; [facility] ; [facility]
--- NOTE | 2018-01-11 18:10 | P.PNPL ---
Subjective Interval history: 57 YOWF with COPD,FELIPE,DM breathing better Ambulates Denies sob Physical Exam Vital signs: Vital Signs 01/10/18 20:00 01/10/18 20:37 01/11/18 00:00 Temperature 97.6 F Pulse Rate 87 87 80 Respiratory Rate 20 Blood Pressure 129/65 Pulse Oximetry 95 01/11/18 00:08 01/11/18 04:33 01/11/18 08:00 Temperature 97.4 F L 97.8 F 97.9 F Pulse Rate 85 81 80 Respiratory Rate 21 18 17 Blood Pressure 120/68 121/62 107/60 Pulse Oximetry 97 93 L 95 01/11/18 09:24 01/11/18 12:00 01/11/18 16:00 Temperature 98.1 F 98.6 F Pulse Rate 80 100 H 80 Respiratory Rate 18 17 17 Blood Pressure 122/73 121/58 L Pulse Oximetry 95 100 95 01/11/18 16:38 01/11/18 16:39 Temperature Pulse Rate 100 H Respiratory Rate 18 Blood Pressure Pulse Oximetry 100 Intake & Output 01/10/18 01/11/18 01/11/18 18:59 06:59 18:59 Intake Total 2900 / 2900 1680 / 1680 100 / 100 Output Total 3000 / 3000 1300 / 1300 Balance -100 / -100 380 / 380 100 / 100 Weight 204.4 kg Intake: IV 1300 / 1300 1200 / 1200 100 / 100 1/2 Normal Saline Inj 1,000 ML 1000 / 1000 1000 / 1000 @ 84 mls/hr IV.CONT .[id number] ERNESTINA Rx#:[id number] Rocephin Inj 2,000 MG In NS Inj 100 / 100 100 / 100 100 ML @ 200 mls/hr IV.SIG Q24H ERNESTINA Rx#:[id number] Flagyl 500 MG Inj 100 ML @ 100 200 / 200 100 / 100 100 / 100 mls/hr IV.SIG Q8H ERNESTINA Rx#: [id number] Oral 1600 / 1600 480 / 480 Output: Urine 3000 / 3000 1300 / 1300 Other: Date of Last Bowel Movement 01/09/18 01/10/18 # Bowel Movements 1 2 GENERAL: WBWN,NAD SKIN: Warm and dry. HEAD: Normocephalic. EYES: No scleral icterus. No injection or drainage. NECK: Supple, trachea midline. No JVD or lymphadenopathy. CARDIOVASCULAR: Regular rate and rhythm without murmurs, gallops, or rubs. RESPIRATORY: Breath sounds equal bilaterally. No accessory muscle use. GASTROINTESTINAL: Abdomen soft, non-tender, nondistended. MUSCULOSKELETAL: No cyanosis, or edema. BACK: Nontender without obvious deformity. No CVA tenderness. - Urinary Catheter Management Indwelling Urethral Catheter Cath placed during this visit: yes Reason for continuing: Chronic Urinary Retention Insertion date: 12/28/17 Insertion time: 05:00 Assessment and Plan - Plan IMPRESSION: COPD Bronchial asthma DM FELIPE PLAN: Aerosol nebs Supplement 02 CPAp at night Stable pulm She will FU with .
[2018-01-11] MEDS: Sodium Chloride 0.45 % Inj 1,000 ML IV.CONT SCH (19:09)
== END 2018-01-11 17:38 ==
LOC: NEDA 08:02 → NEPC 08:02 → NEDA 14:20 → NEPGCP 14:29 → N04 12-25 14:16 → HIMC 12-27 20:00 → N07 01-01 12:47
PROVIDERS: ADMIT Internal Medicine; ATTEND Internal Medicine
PROC: PANENDO (2017-12-28 10:00)